=== PATIENT | female | born 1970 | race Caucasian/White ===

== ENCOUNTER 2016-12-11 16:55 | Emergency (ER) | payer MEDICARE, MEDICAID ==
[~2016-12-11] VITALS: Ht 170.2 cm; Wt 108.9 kg
[~2016-12-11 16:55] MED LIST: ACET325T21 PO; ASCO500T2 PO; ASPI-482 PO; ATOR40TA59 PO; AZTR1VIA2 IJ; BISA5TAB4 PO; CARV6.25 PO; CLOP75TA27 PO; DOCU100C5 PO; DOCU100T5 PO; DOXY100T PO; FENT1PAT15 TD; FENT1PAT17 TD; FENT50VI IV; GABA-586 PO; GUAI12003 PO; INSU100C4 SQ; INSU100I17 SQ; INSU100I27 SQ; INSU100V8 SQ; IPRA3AMP NEB; MAGN400O4 PO; METO2.5T PO; MONT10TA9 PO; NITR0.4T SL; OMEP20CA9 PO; ONDA4TAB10 SL; ONDA4TAB7 PO; POLY17PO3 PO; POLY17PO5 PO; POTA20TA4 PO; PROC25SU2 RC; SPIR25TA3 PO; TORS20TA2 PO; TRAM50TA PO
--- NOTE | 2016-12-11 20:21 | RAD ---
PROCEDURE Right lower extremity venous duplex study 12/11/2016 HISTORY Right thigh swelling and pain for 1 day. TECHNIQUE Using a combination of real-time ultrasound imaging and color flow and pulse Doppler imaging techniques along with graded compression augmentation, duplex evaluation of the major deep venous structures of the right lower extremity was performed. Multiple images were obtained. FINDINGS Echogenic thrombus consistent with occlusive DVT is seen extending throughout the right superficial femoral and right common femoral veins. The right popliteal vein is patent. IMPRESSION DVT is seen extending throughout the right superficial femoral and right common femoral veins. Electronically signed by: Mauro Maher MD (Dec 11, 2016 20:19:36)
[2016-12-11] MEDS ORDERED: FENTANYL PF 100 MCG/2 ML VIAL. IM ONE (20:30)
[2016-12-11] MEDS ORDERED: FENTANYL PF 100 MCG/2 ML VIAL. IV ONE (20:45)
[2016-12-11] MEDS ORDERED: APIXABAN 5 MG TABLET. PO ONE (20:45)
[2016-12-11] MEDS ORDERED: FENT1PAT17 TD (21:28)
[2016-12-11] MEDS ORDERED: APIX5TAB PO (21:28)
--- NOTE | 2016-12-11 21:29 | PHYS DOC ---
Past Medical History Past Medical History: CVA, Diabetes-Type II, DVT, GERD, High Cholesterol, Hypertension, [place], Renal Disease, Other Additional Past Medical Histor: PE, CHRONIC BACK PAIN, ENLARGED LIVER Past Surgical History: Angioplasty, Cholecystectomy, , Other Additional Past Surgical Histo: CARDIAC STENT, VENA CAVA FILTER, HERNIA SURG Alcohol Use: None Drug Use: None Adult General Chief Complaint Chief Complaint: INSECT BITE HPI HPI Patient is a 46 year old female who presents with report of a "spider bite" to the right thigh that she noticed today. She reports that the right thigh is swollen compared to the left because of the bite. She denies any fevers. The patient had 2 toes amputated from the right foot in July of last year. She has been instructed to be non-weight bearing until later this month. She has been using a 2-wheeled knee scooter for assistance with ambulation. She has a history of DVT and PE with [place] filter placed after the 2nd PE. She is not currently on any blood thinners. Her PCP is Dr. Chele Singh. Review of Systems Review of Systems Constitutional: Denies fever or chills. [] Respiratory: Denies cough or shortness of breath. [] Cardiovascular: Denies chest pain, palpitations or edema. [] Musculoskeletal: Denies back pain or joint pain. Reports right leg pain. Integument: Denies rash or skin lesions. Reports right thigh "spider bite" Neurologic: Denies focal weakness or sensory changes. [] Current Medications Current Medications Current Medications Medications (Trade) Dose Ordered Sig/Ant Start Time Stop Time Status Last Admin Dose Admin Apixaban (Eliquis) 10 mg 1X ONCE 12/11/16 20:45 12/11/16 21:01 DC Fentanyl Citrate (Fentanyl 2ml Vial) 50 mcg 1X ONCE 12/11/16 20:45 12/11/16 21:00 DC 12/11/16 20:47 50 MCG Allergies Allergies Allergies Coded Allergies Type Severity Reaction Last Updated Verified Sulfa (Sulfonamide Antibiotics) Allergy Severe causes throat to swell 07/15/16 Yes amoxicillin Allergy Severe causes swelling of throat 07/15/16 Yes clarithromycin Allergy Severe causes throat to swell 07/15/16 Yes codeine Allergy Severe "closed up my throat and itching" 07/15/16 Yes hydrocodone Allergy Severe "closes up my throat and itching" 03/28/15 Yes Penicillins Allergy Intermediate causes swelling of throat 03/28/15 Yes oxycodone Allergy Intermediate 06/08/16 Yes tramadol Allergy Intermediate Nausea and Vomiting 07/01/16 Yes Physical Exam Physical Exam Constitutional: Well developed, well nourished, no acute distress, non-toxic appearance. [] HENT: Normocephalic, atraumatic, oropharynx moist. [] Eyes: PERRLA, EOMI, conjunctiva normal, no discharge. [] Neck: Normal range of motion, no tenderness, supple, no stridor. [] Cardiovascular: Heart rate regular rhythm, no murmur. [] Lungs & Thorax: Bilateral breath sounds clear to auscultation without wheezes, rales, or rhonchi. [] Skin: Warm, dry, no erythema, no rash. There is no erythema or induration. There is no abscess. There are no skin changes in the right thigh. Extremities: Right thigh tenderness, ROM intact, mild right thigh edema. Distal pulses equal bilaterally. Less than 2 second capillary refill in the toes distally. Light touch sensation intact in the toes. Neurologic: Alert and oriented X 3, normal motor function, normal sensory function, no focal deficits noted. [] Psychologic: Affect normal, judgement normal, mood normal. [] Current Patient Data Vital Signs Vital Signs Date Time Temp Pulse Resp B/P Pulse Ox O2 Delivery O2 Flow Rate FiO2 12/11/16 20:47 91 Room Air 12/11/16 20:45 103 20 145/77 12/11/16 18:47 98.5 98.5 EKG EKG [] Radiology/Procedures Radiology/Procedures REASON: right thigh swelling, non-wt bearing since 07/2016 toe amputation PROCEDURE: VENOUS LOWER EXTREMITY RIGHT PROCEDURE Right lower extremity venous duplex study 12/11/2016 HISTORY Right thigh swelling and pain for 1 day. TECHNIQUE Using a combination of real-time ultrasound imaging and color flow and pulse Doppler imaging techniques along with graded compression augmentation, duplex evaluation of the major deep venous structures of the right lower extremity was performed. Multiple images were obtained. FINDINGS Echogenic thrombus consistent with occlusive DVT is seen extending throughout the right superficial femoral and right common femoral veins. The right popliteal vein is patent. IMPRESSION DVT is seen extending throughout the right superficial femoral and right common femoral veins. Course & Med Decision Making Course & Med Decision Making Pertinent Labs and Imaging studies reviewed. (See chart for details) The patient presents with report of a spider bite to her right thigh that has caused swelling in the thigh. On exam, there are no skin changes that would explain the swelling in her thigh. There is no evidence of abscess or cellulitis. The patient has been nonweightbearing on the right leg since surgery in July of last year. She has a history of DVTs and is not currently on any blood thinners. Ultrasound does show blood clot in the right superficial femoral and common femoral veins. She denies chest pain or shortness of breath. She has a [place] filter in place. Patient was given an initial dose of Eliquis in the emergency department. She is on fentanyl patch for chronic pain management. She states that she applied her last patch yesterday. She has a follow-up appointment with her doctor on Wednesday. She is discharged home with prescription for Eliquis and 1 fentanyl patch. Return precautions were discussed. She verbalizes understanding and agrees with plan. Patient course was discussed with Dr. Gasca, who agrees with evaluation and plan. Dragon Disclaimer Dragon Disclaimer This electronic medical record was generated, in whole or in part, using a voice recognition dictation system. Departure Departure Impression: Primary Impression: DVT (deep venous thrombosis) Disposition: HOME, SELF-CARE Condition: STABLE Referrals: CHELE SINGH MD (PCP) Patient Instructions: Deep Vein Thrombosis Additional Instructions: You were seen for a blood clot in your right thigh. You have been started on a blood thinner to help dissolve the blood clot. You do not need to have blood tests for this medication. It is still very important to take it regularly. Please follow up with your doctor as scheduled on Wednesday. Return to the emergency department if you have chest pain, shortness of breath, or other new or concerning symptoms. Scripts Fentanyl (FENTANYL 50mcg/hr)1 Each Patch.[id number] Patch TD Q72H #1 PATCH Prov:NICHOLAS LUJAN 12/11/16 Apixaban (Eliquis)5 Mg [id number] Mg PO BID #74 Take 10mg twice daily for 7 days, then take 5mg twice daily. Prov:INCHOLAS LUJAN 12/11/16 Problem Qualifiers Primary Impression: DVT (deep venous thrombosis) DVT location: lower extremity Affected thrombotic vein of extremity: femoral Laterality: right Chronicity: acute Qualified Code: I82.411 - Acute embolism and thrombosis of right femoral vein NICHOLAS LUJAN Dec 11, 2016 21:29
[2016-12-11 21:30] VITALS: BP 145/77
== END 2016-12-11 21:40 | disposition home or self-care (01) ==
LOC: ER 16:55
DX: I82.411 Acute embolism and thrombosis of right femoral vein (principal); K21.9 Gastro-esophageal reflux disease without esophagitis; E78.00 Pure hypercholesterolemia, unspecified; I25.2 Old myocardial infarction; G89.29 Other chronic pain; I10 Essential (primary) hypertension; Z86.718 Personal history of other venous thrombosis and embolism; Z86.711 Personal history of pulmonary embolism; Z86.73 Personal history of transient ischemic attack (TIA), and cerebral infarction without residual deficits; Z89.421 Acquired absence of other right toe(s); Z90.49 Acquired absence of other specified parts of digestive tract; Z95.5 Presence of coronary angioplasty implant and graft; Z88.2 Allergy status to sulfonamides; Z88.1 Allergy status to other antibiotic agents; Z88.5 Allergy status to narcotic agent; Z88.0 Allergy status to penicillin
CPT/HCPCS: 93971; 96374; 99284; J3010

== ENCOUNTER 2016-12-14 17:42 | Emergency (ER) | payer MEDICARE, MEDICAID ==
[~2016-12-14] VITALS: Ht 170.2 cm; Wt 108.9 kg
[~2016-12-14 17:42] MED LIST changes: +APIX5TAB PO
--- NOTE | 2016-12-14 18:56 | PHYS DOC ---
Past Medical History Past Medical History: CVA, Diabetes-Type II, DVT, GERD, High Cholesterol, Hypertension, [place], Renal Disease, Other Additional Past Medical Histor: PE, CHRONIC BACK PAIN, ENLARGED LIVER Past Surgical History: Angioplasty, Cholecystectomy, , Other Additional Past Surgical Histo: CARDIAC STENT, VENA CAVA FILTER, HERNIA SURG, 4TH & 5TH RIGHT TOE AMP Additional Information: 2 CIGS/DAY Alcohol Use: None Drug Use: None Adult General Chief Complaint Chief Complaint: LOWER EXTREMITY SWELLING HPI HPI Patient is a 46 year old female who presents with right thigh pain and swelling. Patient was recently diagnosed with DVT on 12/11/16, and was started on Eliquis. She presents today with complaint of continued swelling and pain in the right thigh. She is concerned about the possibility of bleeding from the blood thinner that she was started on. She has tried taking Tylenol for the pain and has a fentanyl patch as well. No other acute complaints. Review of Systems Review of Systems Constitutional: Denies fever or chills Eyes: Denies change in visual acuity or eye pain HENT: Scratchy voice. Denies nasal congestion or sore throat Respiratory: Denies cough or shortness of breath Cardiovascular: Denies chest pain GI: Denies abdominal pain, nausea, vomiting, bloody stools or diarrhea : Denies dysuria or hematuria Musculoskeletal: RLE pain and swelling Integument: Denies rash or skin lesions Neurologic: Denies headache, focal weakness or sensory changes Current Medications Current Medications Current Medications Medications (Trade) Dose Ordered Sig/Ant Start Time Stop Time Status Last Admin Dose Admin Fentanyl Citrate (Fentanyl 2ml Vial) 50 mcg 1X ONCE 12/14/16 21:30 12/14/16 21:31 DC 12/14/16 21:32 50 MCG Allergies Allergies Allergies Coded Allergies Type Severity Reaction Last Updated Verified Sulfa (Sulfonamide Antibiotics) Allergy Severe causes throat to swell 07/15/16 Yes amoxicillin Allergy Severe causes swelling of throat 07/15/16 Yes clarithromycin Allergy Severe causes throat to swell 07/15/16 Yes codeine Allergy Severe "closed up my throat and itching" 07/15/16 Yes hydrocodone Allergy Severe "closes up my throat and itching" 03/28/15 Yes Penicillins Allergy Intermediate causes swelling of throat 03/28/15 Yes oxycodone Allergy Intermediate 06/08/16 Yes tramadol Allergy Intermediate Nausea and Vomiting 07/01/16 Yes Physical Exam Physical Exam Constitutional: Well developed, well nourished, no acute distress, non-toxic appearance HENT: Normocephalic, atraumatic, bilateral external ears normal Eyes: EOMI, conjunctiva normal, no discharge Neck: Normal range of motion, no stridor Cardiovascular: Heart rate normal, regular rhythm, no murmur Lungs & Thorax: Bilateral breath sounds clear to auscultation Abdomen: Bowel sounds normal, soft, non-distended, no TTP Skin: Warm, dry, no erythema, no rash Extremities: RLE mildly swollen compared to LLE; R thigh generally TTP; motor function and sensation to light touch intact; 1+ DP pulse; prior toe amputation noted Neurologic: Alert and oriented X 3, no gross deficits noted Current Patient Data Vital Signs Vital Signs Date Time Temp Pulse Resp B/P Pulse Ox O2 Delivery O2 Flow Rate FiO2 12/14/16 21:50 92 20 114/65 97 Room Air 12/14/16 18:21 98.4 98.4 EKG EKG [] Radiology/Procedures Radiology/Procedures CT RLE: FINDINGS: There is diffuse soft tissue stranding throughout the right calf and foot, with prominent edema present lateral to the distal fibula. No focal fluid collection is seen to suggest hematoma or abscess. No subcutaneous emphysema is seen. The knee and ankle joints are maintained. No acute fracture or dislocation is seen within the visualized osseous structures. IMPRESSION: Diffuse subcutaneous soft tissue stranding suggesting edema within the right lower leg, without a focal fluid collection seen. Course & Med Decision Making Course & Med Decision Making Pertinent Labs and Imaging studies reviewed. (See chart for details) Patient is 46-year-old female who presents with right lower extremity pain and swelling. Suspect this is related to the DVT that was recently diagnosed. Will obtain CT scan of the affected leg to rule out evidence of hematoma, although I believe the likelihood that she is bleeding and her leg is low. IM pain meds ordered for pain relief. Imaging results as above. Provided reassurance the patient, who says she has been taking her Eliquis as prescribed. Will discharge with instructions for follow-up and return precautions. Dragon Disclaimer Dragon Disclaimer This electronic medical record was generated, in whole or in part, using a voice recognition dictation system. Departure Departure Impression: Primary Impression: DVT (deep venous thrombosis) Additional Impression: Leg edema, right Disposition: HOME, SELF-CARE Condition: STABLE Referrals: CHELE SINGH MD (PCP) Patient Instructions: Deep Vein Thrombosis Additional Instructions: Thank you for allowing us to provide care today in the Emergency Department. Continue to use your fentanyl patch for pain control. Schedule a follow up appointment with your primary care doctor. Return promptly to the Emergency Department if you develop any new or concerning symptoms. Problem Qualifiers INNA TARIQ MD Dec 14, 2016 18:56
[2016-12-14] MEDS ORDERED: FENTANYL PF 100 MCG/2 ML VIAL. IM ONE ×2 (19:00→21:30)
--- NOTE | 2016-12-14 20:29 | RAD ---
INDICATION: Right thigh swelling after starting anticoagulant, evaluate for fluid collection. COMPARISON: None TECHNIQUE: Axial CT images obtained through the right lower extremity from the level of the knee inferiorly through the toes, without intravenous contrast. Coronal and sagittal reformats are provided. One or more of the following individualized dose reduction techniques were utilized for this examination: 1. Automated exposure control; 2. Adjustment of the mA and/or kV according to patient size; 3. Use of iterative reconstruction technique. FINDINGS: There is diffuse soft tissue stranding throughout the right calf and foot, with prominent edema present lateral to the distal fibula. No focal fluid collection is seen to suggest hematoma or abscess. No subcutaneous emphysema is seen. The knee and ankle joints are maintained. No acute fracture or dislocation is seen within the visualized osseous structures. IMPRESSION: Diffuse subcutaneous soft tissue stranding suggesting edema within the right lower leg, without a focal fluid collection seen. Electronically signed by: Ida Tubbs (Dec 14, 2016 20:27:39)
[2016-12-14 21:50] VITALS: BP 114/65
== END 2016-12-14 21:53 | disposition home or self-care (01) ==
LOC: ER 17:42
DX: I82.4Y1 Acute embolism and thrombosis of unspecified deep veins of right proximal lower extremity (principal); I12.9 Hypertensive chronic kidney disease with stage 1 through stage 4 chronic kidney disease, or unspecified chronic kidney disease; N18.9 Chronic kidney disease, unspecified; I25.2 Old myocardial infarction; K21.9 Gastro-esophageal reflux disease without esophagitis; E78.00 Pure hypercholesterolemia, unspecified; E11.9 Type 2 diabetes mellitus without complications; Z86.73 Personal history of transient ischemic attack (TIA), and cerebral infarction without residual deficits; G89.29 Other chronic pain; Z86.711 Personal history of pulmonary embolism; Z95.5 Presence of coronary angioplasty implant and graft; Z95.1 Presence of aortocoronary bypass graft; Z90.49 Acquired absence of other specified parts of digestive tract; F17.210 Nicotine dependence, cigarettes, uncomplicated; Z98.890 Other specified postprocedural states; Z88.2 Allergy status to sulfonamides; Z88.1 Allergy status to other antibiotic agents; Z88.5 Allergy status to narcotic agent; Z88.6 Allergy status to analgesic agent; Z88.0 Allergy status to penicillin
CPT/HCPCS: 73700; 96372; 99284; J3010

== ENCOUNTER 2016-12-21 13:19 | Inpatient (IN) | payer MEDICARE, MEDICAID ==
[~2016-12-21] VITALS: Ht 170.2 cm; Wt 128.9 kg
[2016-12-21 14:11] LABS: BASO # 0.1 x10^3/uL (0.0-0.2); BASO % 1 % (0-3); EOS % 1 % (0-3); HEMATOCRIT 41.9 % (36.0-47.0); HEMOGLOBIN 13.5 g/dL (12.0-15.5); LYMPH # 1.5 x10^3/uL (1.0-4.8); LYMPH % 17 % (24-48); MEAN CORPUSCULAR HEMOGLOBIN 28 pg (25-35); MEAN CORPUSCULAR HGB CONC 32 g/dL (31-37); MEAN CORPUSCULAR VOLUME 88 fL (79-100); MONO % 7 % (0-9); NEUT % 75 % (31-73); PLATELET COUNT 265 x10^3/uL (140-400); RED BLOOD COUNT 4.76 x10^6/uL (3.50-5.40); RED CELL DISTRIBUTION WIDTH 18.7 % (11.5-14.5); WHITE BLOOD COUNT 8.8 x10^3/uL (4.0-11.0)
[2016-12-21] MEDS ORDERED: VANCOMYCIN PER PHARMACY MC PRN (14:15)
[2016-12-21] MEDS ORDERED: ONDANSETRON PF 4 MG/2 ML VIAL. IV ONE (14:15)
[2016-12-21] MEDS ORDERED: LEVOFLOXACIN PER PHARMACY MC PRN (14:15)
--- NOTE | 2016-12-21 14:18 | ED.ADGEN ---
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 Patient has wound care at home, but over the past 3 days or so as noted increased swelling, now odor and drainage along with worsening pain from her right foot. Complains of subjective fevers and chills at home, nausea, generalized weakness and malaise. Patient noted to be tachycardic heart rate in the 1 teens, blood pressure 1 teens over 70s, upon arrival to the emergency department, afebrile. States that she was using her home fennel patches without relief. 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 Tetanus is up-to-date. Review of Systems Review of Systems Constitutional: Denies fever or chills. [] Eyes: Denies change in visual acuity. [] HENT: Denies nasal congestion or sore throat. [] Respiratory: Denies cough or shortness of breath. [] Cardiovascular: Denies chest pain or edema. [] GI: Denies abdominal pain, nausea, vomiting, bloody stools or diarrhea. [] : Denies dysuria. [] Musculoskeletal: Denies back pain, pain in the right foot, with swelling. Integument: Denies rash. [] Neurologic: Denies headache, focal weakness or sensory changes. [] Endocrine: Denies polyuria or polydipsia. [] Lymphatic: Denies swollen glands. [] Psychiatric: Denies depression or anxiety. [] Current Medications Current Medications Current Medications Medications (Trade) Dose Ordered Sig/Ant Start Time Stop Time Status Last Admin Dose Admin Acetaminophen (Tylenol) 650 mg PRN Q4HRS PRN 12/21/16 16:15 12/22/16 16:14 Albuterol/ Ipratropium (Duoneb) 3 ml RTQID 12/21/16 20:00 12/22/16 19:59 Dextrose 12.5 gm PRN Q15MIN PRN 12/21/16 16:15 Fentanyl Citrate (Fentanyl 2ml Vial) 50 mcg PRN Q1HR PRN 12/21/16 16:15 12/22/16 16:14 Insulin Aspart (Novolog) 0-5 UNITS TIDWMEALS 12/21/16 17:00 UNV Levofloxacin/ Dextrose 150 ml @ 100 mls/hr 1X ONCE 12/21/16 15:00 12/21/16 16:29 DC 12/21/16 14:30 100 MLS/HR Levofloxacin/ Dextrose 1 each 1 each PRN DAILY PRN 12/21/16 14:15 UNV Metronidazole (FLAGYL 500Mmg PREMIX) 100 ml @ 100 mls/hr 1X ONCE 12/21/16 16:00 12/21/16 16:59 12/21/16 16:15 100 MLS/HR Morphine Sulfate 4 mg PRN Q15MIN PRN 12/21/16 14:15 12/22/16 14:14 12/21/16 15:22 4 MG Ondansetron HCl (Zofran) 4 mg PRN Q8HRS PRN 12/21/16 16:15 12/22/16 16:14 Sodium Chloride 3,960 ml @ 3,960 mls/hr Q1H 12/21/16 14:07 12/21/16 14:30 3,960 MLS/HR Vancomycin HCl (Vanco Per Pharmacy) 1 each PRN DAILY PRN 12/21/16 14:15 UNV Vancomycin HCl 2 gm/Sodium Chloride 500 ml @ 250 mls/hr 1X ONCE 12/21/16 15:00 12/21/16 16:59 12/21/16 15:00 250 MLS/HR Allergies Allergies Allergies Coded Allergies Type Severity Reaction Last Updated Verified Sulfa (Sulfonamide Antibiotics) Allergy Severe causes throat to swell 07/15/16 Yes amoxicillin Allergy Severe causes swelling of throat 07/15/16 Yes clarithromycin Allergy Severe causes throat to swell 07/15/16 Yes codeine Allergy Severe "closed up my throat and itching" 07/15/16 Yes hydrocodone Allergy Severe "closes up my throat and itching" 03/28/15 Yes Penicillins Allergy Intermediate causes swelling of throat 03/28/15 Yes oxycodone Allergy Intermediate 06/08/16 Yes tramadol Allergy Intermediate Nausea and Vomiting 07/01/16 Yes Physical Exam Physical Exam Constitutional: Well developed, well nourished, no acute distress, non-toxic appearance. [] HENT: Normocephalic, atraumatic, bilateral external ears normal, oropharynx moist, no oral exudates, nose normal. [] Eyes: PERRLA, EOMI, conjunctiva normal, no discharge. [] Neck: Normal range of motion, no tenderness, supple, no stridor. [] Cardiovascular:Heart rate tachycardic, regular rhythm, no murmur, S1, S2, rubs or gallops. [] Lungs & Thorax: Diminished breath sounds at bases bilaterally, no rhonchi or rales appreciated. No chest tenderness or crepitus. Abdomen: Obese, Bowel sounds normal, soft, no tenderness, no masses, no pulsatile masses. [] Skin: Warm, dry, no erythema, no rash. [] Back: No tenderness, no CVA tenderness. [] Extremities: Patient with swelling bilateral lower extremities, with significant edema noted in the right lower, with redness and erythema, streaking away from an area of open wounds over the fourth and fifth toes, on the dorsal aspect, foul odor is noted, with a small amount of yellow drainage. Neurologic: Alert and oriented X 3, normal motor function, normal sensory function, no focal deficits noted. [] Psychologic: Affect normal, judgement normal, mood normal. [] Current Patient Data Vital Signs Vital Signs Date Time Temp Pulse Resp B/P Pulse Ox O2 Delivery O2 Flow Rate FiO2 12/21/16 16:12 16 96 Room Air 12/21/16 15:22 2.0 12/21/16 15:21 107 109/64 12/21/16 13:19 97.4 97.4 Lab Values Laboratory Tests Test 12/21/16 13:53 12/21/16 15:10 White Blood Count 8.8x10^3/uL (4.0-11.0) Red Blood Count 4.76x10^6/uL (3.50-5.40) Hemoglobin 13.5g/dL (12.0-15.5) Hematocrit 41.9% (36.0-47.0) Mean Corpuscular Volume 88fL (79-100) Mean Corpuscular Hemoglobin 28pg (25-35) Mean Corpuscular Hemoglobin Concent 32g/dL (31-37) Red Cell Distribution Width 18.7% (11.5-14.5) H Platelet Count 265x10^3/uL (140-400) Neutrophils (%) (Auto) 75% (31-73) H Lymphocytes (%) (Auto) 17% (24-48) L Monocytes (%) (Auto) 7% (0-9) Eosinophils (%) (Auto) 1% (0-3) Basophils (%) (Auto) 1% (0-3) Neutrophils # (Auto) 6.6x10^3uL (1.8-7.7) Lymphocytes # (Auto) 1.5x10^3/uL (1.0-4.8) Monocytes # (Auto) 0.6x10^3/uL (0.0-1.1) Eosinophils # (Auto) 0.1x10^3/uL (0.0-0.7) Basophils # (Auto) 0.1x10^3/uL (0.0-0.2) Prothrombin Time 15.0SEC (11.7-14.0) H Prothrombin Time INR 1.3 (0.8-1.1) H PTT 30SEC (24-38) Sodium Level 141mmol/L (136-145) Potassium Level 4.4mmol/L (3.5-5.1) Chloride Level 99mmol/L (98-107) Carbon Dioxide Level 32mmol/L (21-32) Anion Gap 10 (6-14) Blood Urea Nitrogen 40mg/dL (7-20) H Creatinine 2.4mg/dL (0.6-1.0) H Estimated GFR (Cockcroft-Gault) 21.6 BUN/Creatinine Ratio 17 (6-20) Glucose Level 375mg/dL (70-99) H Lactic Acid Level 4.4mmol/L (0.4-2.0) *H 4.2mmol/L (0.4-2.0) *H Calcium Level 9.2mg/dL (8.5-10.1) Total Bilirubin 0.6mg/dL (0.2-1.0) Aspartate Amino Transferase (AST) 23U/L (15-37) Alanine Aminotransferase (ALT) 18U/L (14-59) Alkaline Phosphatase 125U/L (46-116) H SZ-Azf-Z-Type Natriuretic Peptide 1337pg/mL (0-124) H Total Protein 6.6g/dL (6.4-8.2) Albumin 2.9g/dL (3.4-5.0) L Albumin/Globulin Ratio 0.8 (1.0-1.7) L Laboratory Tests 12/21/16 13:53 Laboratory Tests 12/21/16 13:53 EKG EKG EC: Sinus tachycardia, heart rate 115 beats minute, right ventricular pressure noted with left axis deviation, abnormal ECG, does not meet STEMI criteria, interpreted as accelerated reduction rhythm, however based on rate consistent with a sinus tachycardia. Abnormal ECG. As interpreted by me. Radiology/Procedures Radiology/Procedures [] [address] [id number] IMAGING REPORT Signed PATIENT: ADRIEL GOOD ACCOUNT: [id number] : 1970 LOCATION: ER AGE: 46 SEX: F EXAM STATUS: REG ER ORD. PHYSICIAN: NICHOLAS HARO DO REASON: Foot swelling/infection PROCEDURE: CHEST AP ONLY Portable chest, 12/21/2016: History: Shortness of breath, foot infection Comparison is made to a study from 11/13/2015. The right PICC has been removed. The heart is at the upper limits of normal in size. The pulmonary vascularity is normal. No pulmonary infiltrates are seen. There is no evidence of pleural fluid. IMPRESSION: No acute cardiopulmonary abnormality is detected. DICTATED and SIGNED BY: EHSAN WHITE MD DATE: 12/21/16 1420 CC: NICHOLAS HARO DO; CHELE JOHNSON MD ~ Impressions: [address] [id number] IMAGING REPORT Signed PATIENT: ADRIEL GOOD ACCOUNT: [id number] : 1970 LOCATION: ER AGE: 46 SEX: F EXAM STATUS: REG ER ORD. PHYSICIAN: NICHOLAS HARO DO REASON: Foot swelling/infection PROCEDURE: FOOT RIGHT 3V Right foot, 3 views, 12/21/2016: History: Open wound, previous amputation Comparison is made to a study from 06/05/2016. The fourth and fifth toes have been amputated at the mid metatarsal level. There is minimal smooth periosteal reaction along the shafts of the remaining proximal aspects of the fourth and fifth metatarsals. No destructive bony lesion is seen. There is extensive generalized subcutaneous edema about the foot. IMPRESSION: 1. Postsurgical change. 2. No acute bony abnormality is detected. DICTATED and SIGNED BY: EHSAN WHITE MD DATE: 12/21/16 1430 CC: NICHOLAS HARO DO; CHELE JOHNSON MD ~ Course & Med Decision Making Course & Med Decision Making Pertinent Labs and Imaging studies reviewed. (See chart for details) Patient's examination concerning for sepsis due to diabetic ulcer infecting the right foot. Patient initiated on IV fluids per protocol, with placement of 2 large-bore IVs, vancomycin, metronidazole and Levaquin. Patient received pain medication and antiemetics. Is agreeable for admission to the hospital. X-rays obtained of the chest and right foot, no evidence of acutely concerning findings in the chest, right foot shows no significant bony abnormalities, patient noted to have soft tissue swelling edema, but no fluid collections or tracking of gas. Consistent with the diabetic ulcer external examination. Patient patient's pain improved using morphine, phenyl, blood pressure remained mildly labile, upper 90s over 60s to 1 teens over 60s, heart rate in the 90s to low 100s. Patient hyperglycemia, glucose of 397. No evidence of anion gap in her laboratory studies. Patient states that she is feeling better at this time. Noted to be dehydrated with a blood urea nitrogen of 40, creatinine of 2.4, elevated from patient's baseline, with fluids infusing as stated. Repeat lactate was 4.2. Initial 4.4. Findings as above along with examination history discussed with Dr. Johnson, the patient's primary care provider. Patient accepted to his service as a full admission to the cardiac telemetry floor for close monitoring, consultation with orthopedics, infectious disease, and supportive care and antibiotic coverage as stated. Bridge orders entered per above. Dragon Disclaimer Dragon Disclaimer This electronic medical record was generated, in whole or in part, using a voice recognition dictation system. Departure Impression: Primary Impression: Sepsis Additional Impressions: DM (diabetes mellitus) Wound infection Disposition: ADMITTED INPATIENT Admitting Physician: Khadijah Carrero Condition: IMPROVED Problem Qualifiers NICHOLAS HARO DO Dec 21, 2016 14:18
[2016-12-21 14:26] LABS: CALCIUM 9.2 mg/dL (8.5-10.1); CREATININE 2.4 mg/dL (0.6-1.0); GFR 21.6; POTASSIUM 4.4 mmol/L (3.5-5.1)
[2016-12-21] MEDS: MORPHINE SULFATE 4 MG/ML DISP.SYRIN. IV/SQ PRN ×2 (14:29→15:22)
[2016-12-21] MEDS: NORMAL SALINE IV SCH ×10 (14:30→23:07)
[2016-12-21 14:31] LABS: INR 1.3 (0.8-1.1)
[2016-12-21 14:32] LABS: ALBUMIN 2.9 g/dL (3.4-5.0); ALBUMIN/GLOBULIN RATIO 0.8 (1.0-1.7); TOTAL BILIRUBIN 0.6 mg/dL (0.2-1.0); TOTAL PROTEIN 6.6 g/dL (6.4-8.2)
--- NOTE | 2016-12-21 14:32 | RAD ---
Portable chest, 12/21/2016: History: Shortness of breath, foot infection Comparison is made to a study from 11/13/2015. The right PICC has been removed. The heart is at the upper limits of normal in size. The pulmonary vascularity is normal. No pulmonary infiltrates are seen. There is no evidence of pleural fluid. IMPRESSION: No acute cardiopulmonary abnormality is detected.
--- NOTE | 2016-12-21 14:36 | RAD ---
Right foot, 3 views, 12/21/2016: History: Open wound, previous amputation Comparison is made to a study from 06/05/2016. The fourth and fifth toes have been amputated at the mid metatarsal level. There is minimal smooth periosteal reaction along the shafts of the remaining proximal aspects of the fourth and fifth metatarsals. No destructive bony lesion is seen. There is extensive generalized subcutaneous edema about the foot. IMPRESSION: 1. Postsurgical change. 2. No acute bony abnormality is detected.
[2016-12-21 14:50] VITALS: BP 118/69
[2016-12-21] MEDS ORDERED: VANCOMYCIN 2 GM in IV NORMAL SALINE 500ML BAG 500 ML IV ONE (15:00)
[2016-12-21] MEDS ORDERED: FENTANYL PF 100 MCG/2 ML VIAL. IV PRN ×3 (15:45→19:45)
[2016-12-21] MEDS ORDERED: METRONIDAZOLE 500mg PREMIX 100 ML IV ONE (16:00)
[2016-12-21] MEDS ORDERED: ONDANSETRON PF 4 MG/2 ML VIAL. IV PRN (16:15)
[2016-12-21] MEDS ORDERED: DEXTROSE 50% 25 GM / 50ML DISP.SYRIN. IV PRN (16:15)
[2016-12-21] MEDS ORDERED: ACETAMINOPHEN 325 MG TABLET. PO PRN (16:15)
[2016-12-21] MEDS: INSULIN ASPART 300 UNITS/3 ML INSULN.PEN SQ SCH (17:00)
--- NOTE | 2016-12-21 18:06 | ACF ---
Admission Forms Criteria SYSTEMIC OR INFECTIOUS CONDITION Clinical Indications for Admission to Inpatient Care (Place 'X' for any and all applicable criteria): Hospital admission is needed for appropriate care of the patient because of ANY ONE of the following: [X]I. Hemodynamic instability indicated by ANY ONE of the following(1)(2)(3)( 4)(5): []a. Vital sign abnormality not readily corrected by appropriate treatment within 12 to 24 hours indicated by ANY ONE of the following: []i) Tachycardia that persists despite appropriate treatment []ii) Hypotension that persists despite appropriate treatment []iii) Orthostatic vital sign changes that persist despite appropriate treatment [X]b. Vital sign abnormality that is severe indicated by ANY ONE of the following: [X]i. Inadequate perfusion indicated by ANY ONE of the following: [X]1) Lactic acidosis (greater than 2 mmol/L) []2) New abnormal capillary refill (greater than 3 seconds) []3) Reduced urine output []4) New altered mental status []5) Myocardial Ischemia []ii. Mean arterial pressure [A] less than 60 mm Hg []iii. Mean arterial pressure[A] less than 70 mm Hg after 30 minutes of appropriate treatment (eg, fluid resuscitation) []iv. Sustained heart rate greater than 120 beats per minute in adult []v. IV inotropic or vasopressor medication required to maintain adequate blood pressure or perfusion []II. Systemic or infectious condition causing severe symptoms or findings not responsive to emergency or observation care treatment (as appropriate) indicated by ANY ONE of the following: []a. Cardiac arrhythmias of immediate concern(1)(2)(3) []b. Severe endocrine disorder (eg, thyrotoxicosis, adrenal insufficiency)(4)(5) []c. Seizures (eg, new or recurrent)(6) []d. New-onset end organ failure or dysfunction as indicated by ANY ONE of the following: []i. Acute unexplained hypoxemia (eg, not from lung infection or chronic disease)(7)(8)(9) []ii. Acute renal failure as indicated by new onset of ANY ONE of the following(10)(11)(12)(13)(14): []1) 3-fold rise in serum creatinine from baseline []2) Serum creatinine greater than 4 mg/dL (354 micromoles/L) with acute rise greater than 0.5 mg/dL (44.2 micromoles/L) []3) Reduction of more than 75% in estimated glomerular filtration rate from baseline. []4) Estimated glomerular filtration rate less than 35 mL/min/1.73m2 ( 0.59 mL/sec/1.73m2) in child younger than 18 years. []5) Cessation of urine output indicated by ALL of the following: []A. Adequate volume status []B. Inadequate urine output as indicated by ANY ONE of the following: []a. Urine output less than 0.3 mL/kg/hr for 24 hours []b. Anuria (urine output less than 0.1 mL/kg/hr) for 12 hours []iii. Acute mental status changes(15) []iv. Acute hepatic failure (eg, plasma bilirubin greater than 4 mg/ dL (68 micromoles/L), new INR greater than 2.0)(16)(17) []e. Unmanageable nausea and vomiting(18) []f. New-onset or uncontrolled central diabetes insipidus(19)(20) []g. Clinically significant dehydration(18)(21) []h. Hypoglycemia(22) []i. Acidosis (pH less than 7.35) or alkalosis (pH greater than 7.45)( 22)(23) []j. Toxic drug level that indicates need for specific monitoring or treatment(24)(25) []k. Severe electrolyte abnormalities indicated by ALL of the following( 1)(2)(3): []i. Electrolytes and associated findings are not as expected for patient baseline or acceptable treatment effects. []ii. Severe abnormalities indicated by ANY ONE of the following: []1) Sodium less than 130 mEq/L (mmol/L) (new) []2) Sodium less than 135 mEq/L (mmol/L) with ANY ONE of the following: []A. Uncorrectable (to near normal or chronic baseline) after trial of outpatient and emergency treatment []B. Altered mental status []C. Seizures []D. Severe medical etiology requiring inpatient management (eg , heart failure, hypovolemia) []3) Sodium greater than 155 mEq/L (mmol/L) []4) Sodium greater than 150 mEq/L (mmol/L) with ANY ONE of the following: []A. Uncorrectable (to near normal or chronic baseline) with outpatient and emergency treatment []B. Altered mental status []C. Seizures []D. Severe medical etiology (eg, hypovolemia, diabetes insipidus) []5) Potassium less than 2.5 mEq/L (mmol/L) despite outpatient and emergency treatment []6) Potassium less than 3 mEq/L (mmol/L) with ANY ONE of the following : []A. Weakness []B. Cardiac abnormality (eg, arrhythmia, conduction disturbance ) []C. Cardiac ischemia []D. Ileus []E. Ongoing medical cause requiring inpatient management (eg, acute renal wasting or SIADH) []F. Other severe symptoms []7) Potassium greater than 6.5 mEq/L (mmol/L) []8) Potassium greater than 5 mEq/L (mmol/L) with ANY ONE of the following: []A. Uncorrectable (to near normal or chronic baseline) with outpatient and emergency treatment []B. Severe ECG findings[A] []C. Acute worsening of renal failure (creatinine greater than 2.5 mg/dL (221 micromoles/L) or significant elevation for age and size) []D. Severe weakness []E. Severe medical etiology (eg, hemolysis, infection, drug overdose) []9) Calcium less than 7 mg/dL (1.75 mmol/L) despite outpatient and emergency treatment(5) []10) Calcium less than 8 mg/dL (2 mmol/L) with significant symptoms or findings (eg, altered mental status, muscle spasms, seizures, breathing difficulty, cardiac abnormality (eg, arrhythmia or conduction disturbance))(5) []11) Calcium greater than 14 mg/dL (3.5 mmol/L)(5) []12) Calcium greater than 12 mg/dL (3 mmol/L) with ANY ONE of the following(5): []A. Uncorrectable (to near normal or chronic baseline) with outpatient and emergency treatment []B. Significant dehydration or hypovolemia as indicated by ALL of the following(3)(6)(7): []a. Not resolved with initial treatments []b. Clinically significant dehydration as indicated by ANY ONE of the following: [](1) Vomiting refractory to outpatient treatment (ie, precluding oral rehydration) [](2) Inability to drink [](3) Hypernatremia or other electrolyte abnormality unable to be corrected with outpatient and emergency treatment [](4) Failure to remain hydrated with outpatient therapy [](5) Reduced urine output [](6) Hypotension [](7) Serious cause for dehydration requiring acute hospitalization ( eg, bowel obstruction, increased intracranial pressure, infectious cause) [](8) Child with ANY ONE of the following(8): [](i) Severe abdominal tenderness [](ii) Adequate care not available at home [](iii) Severe dehydration (greater than 9% loss of body weight) []C. Significant symptoms or findings (eg, altered mental status , cardiac abnormality (eg, arrhythmia, conduction disturbance), malignant etiology requiring inpatient treatment) []13) Phosphorus less than 1 mg/dL (0.32 mmol/L) []14) Phosphorus less than 1.5 mg/dL (0.48 mmol/L) with ANY ONE of the following: []A. Patient unresponsive to outpatient and emergency treatment []B. Significant symptoms or findings (eg, weakness, altered mental status, breathing difficulty, seizures, rhabdomyolysis) []15) Phosphorus greater than 10 mg/dL (3.2 mmol/L) []16) Phosphorus greater than 4.5 mg/dL (1.45 mmol/L) (new) with ANY ONE of the following: []A. Severe medical etiology (eg, crush injury, acute renal failure) []B. Associated hypocalcemia with significant findings (eg, neurologic symptoms, altered mental status, muscle spasms, seizures, breathing difficulty, cardiac abnormality (eg, arrhythmia, conduction disturbance)) []16) Magnesium less than 1 mg/dL (0.41 mmol/L) []17) Magnesium less than 1.5 mg/dL (0.62 mmol/L) with ANY ONE of the following: []A. Patient unresponsive to outpatient and emergency treatment []B. Associated hypocalcemia with significant findings (eg, altered mental status, muscle spasms, seizures, breathing difficulty, cardiac abnormality (eg, arrhythmia, conduction disturbance)) []C. Associated hypokalemia (potassium less than 3 mEq/L (mmol/L )) with risk of arrhythmia []18) Magnesium greater than 4 mEq/L (2 mmol/L) []19) Magnesium greater than 2.5 mEq/L (1.25 mmol/L) with significant symptoms or findings (eg, weakness, altered mental status, cardiac abnormality (eg, arrhythmia, conduction disturbance), breathing difficulty, severe medical etiology (eg, renal failure, hypovolemia)) []20) Uric acid greater than 20 mg/dL (1190 micromoles/L)(9) []21) Uric acid greater than 8 mg/dL (476 micromoles/L) with significant symptoms or findings of tumor lysis syndrome (eg, creatinine greater than 1.5 times upper limit of normal, cardiac abnormality (eg , arrhythmia, conduction disturbance), seizure)(9) []III. High fever or other high-risk infection situation as indicated by ANY ONE of the following(26)(27)(28): []a. Outpatient and observation care antimicrobial treatment unavailable, not effective, or not appropriate []b. Documented bacteremia []c. Temperature greater than 104.9 degrees F (40.5 degrees C) (oral) []d. Temperature greater than 103.1 degrees F (39.5 degrees C) (oral) or less than 96.8 degrees F (36 degrees C) (rectal) that does not respond to emergency treatment and observation care []IV. High-risk febrile neutropenia[A] as indicated by ANY ONE of the following(29)(30)(31)(32): []a. Profound neutropenia[B] anticipated to extend for more than 7 days []b. Hemodynamic instability []c. Hypoxemia []d. Tachypnea []e. Altered mental status []f. New-onset abdominal pain []g. New-onset vomiting or diarrhea []h. Oral or gastrointestinal mucositis that interferes with swallowing or causes severe diarrhea []i. Focal infection (eg, cellulitis, pneumonia, central line or catheter infection, perirectal abscess) []j. Renal insufficiency (eg, GFR of less than 30 mL/min/1.73m2 (0.5 mL/sec /1.73m2)). []k. Severe liver dysfunction (transaminase levels greater than 5 times normal) []l. Platelet count less than 50,000/mm3 (50 x109/L)(33) []m. Leukemia or lymphoma induction therapy []n. Leukemia not in complete remission or with evidence of disease progression []o. Bone marrow transplant patient []p. Alemtuzumab being used for therapy []q. [employer] Supportive Care in Cancer (MASCC) Risk Index score of less than 21[C](33)(35). []V. Isolation required (eg, tuberculosis that requires isolation, Ebola infection)[D](36)(37)(38)(39)(40) []. Gangrene that requires treatment beyond emergency or observation level care(41)(42) []VII. Antitoxin administration and ongoing observation required (eg, tetanus, botulism)(43)(44) []. Suspected infection with rapid progression or severe symptoms as indicated by ANY ONE of the following(45): []a. Streptococcal or staphylococcal toxic shock(46) []b. Diphtheria(47) []c. Hantavirus(48) []d. Severe acute respiratory syndrome(8)(49) []e. Anthrax(50) []f. Ebola[D](36)(37)(38) []g. Necrotizing soft tissue infection(41)(42) []h. Plague(50) []i. Other suspected infection that requires care beyond emergency or observation level care []VII. Severe adverse drug or systemic toxin reaction as indicated by ANY ONE of the following(24): []a. Serotonin syndrome(51)(52) []b. Neuroleptic malignant syndrome(51)(52) []c. Cholinergic syndrome with severe symptoms (eg, bronchorrhea, weakness , mental status changes, seizures)(53) []d. Anticholinergic syndrome []e. Sympathetic syndrome with severe symptoms (eg, seizures, mental status changes, cardiac dysrhythmias) []f. Other severe adverse drug or systemic toxin reaction that remains after emergency or observation level care (as appropriate) []VIII. Allergic reaction with severe symptoms (not responsive to emergency or observation care treatment as appropriate), including ANY ONE of the following(54): []a. Airway edema (pharyngeal, epiglottic, or laryngeal edema) []b. Stridor []c. Respiratory failure []d. Bronchospasm []e. Hypotension []IX. Environmental emergency (not responsive to emergency or observation care treatment as appropriate) as indicated by ANY ONE of the following(55)(56): []a. Hyperthermia []b. Heat stroke []c. Heat exhaustion []d. Hypothermia (temperature less than 95 degrees F (35 degrees C) rectal) (57) []e. Electrocution(58) []X. Complications of transplanted organ (ie, not covered elsewhere)[E] indicated by ANY ONE of the following(59): []a. Acute graft rejection (or graft vs. host disease)[F] requiring inpatient management (eg, intravenous immunosuppression)(60)(61)(62)( 63) []b. Acute failure of transplanted organ necessitating inpatient care (eg, cannot be managed in other setting) []c. Infection requiring inpatient management (eg, Hemodynamic instability, need for intravenous antimicrobial treatment)(64)(65) []d. Other complication of transplanted organ requiring inpatient management []XI. Systemic or Infectious Condition condition, symptom, or finding for which emergency and observation care have failed or are not considered appropriate. See General Criteria: Observation Care, General Admission Criteria or Pediatric General Admission Criteria guideline as appropriate. The [facility] content created by [facility] has been revised. The portions of the content which have been revised are identified through the use of italic text or in bold and [facility] has neither reviewed nor approved the modified material. All other unmodified content is copyright [facility]. Please see references footnoted in the original [facility] edition 2016 Admission Criteria Met?: Yes TRISTEN JOSE Dec 21, 2016 18:06
[2016-12-21 19:15] VITALS: BP 101/53
[2016-12-21] MEDS: FENTANYL PF 100 MCG/2 ML VIAL. IV PRN ×2 (20:32→23:40)
[2016-12-21] MEDS ORDERED: INSULIN ASPART 300 UNITS/3 ML INSULN.PEN SQ SCH (22:30)
[2016-12-21] MEDS ORDERED: MAGNESIUM HYDROXIDE 2,400 MG/30 ML ORAL.SUSP. PO PRN (22:30)
[2016-12-21] MEDS ORDERED: APIXABAN 5 MG TABLET. PO SCH (22:45)
[2016-12-21 23:00] VITALS: BP 117/69
[2016-12-21] MEDS ORDERED: METOLAZONE 2.5 MG TABLET PO PRN (23:00)
[2016-12-21] MEDS ORDERED: FAMOTIDINE 20 MG TABLET. PO SCH (23:30)
[2016-12-21] MEDS: ATORVASTATIN CALCIUM 40 MG TABLET. PO SCH (23:38)
[2016-12-21] MEDS: MONTELUKAST SODIUM 10 MG TABLET. PO SCH (23:38)
[2016-12-21] MEDS: METRONIDAZOLE 500mg PREMIX 100 ML IV SCH (23:50)
[2016-12-21] MEDS: INSULIN DETEMIR 300 UNITS/3 ML INSULN.PEN. SQ SCH (23:54)
[2016-12-22] MEDS: NORMAL SALINE IV SCH ×6 (00:07→05:07)
[2016-12-22] MEDS: CARVEDILOL 6.25 MG TABLET PO SCH ×3 (00:12→17:43)
[2016-12-22 03:00] VITALS: BP 114/70
[2016-12-22] MEDS: FENTANYL PF 100 MCG/2 ML VIAL. IV PRN ×7 (03:42→13:20)
[2016-12-22 04:41] LABS: BASO # 0.1 x10^3/uL (0.0-0.2); BASO % 1 % (0-3); EOS % 2 % (0-3); HEMATOCRIT 39.2 % (36.0-47.0); HEMOGLOBIN 12.6 g/dL (12.0-15.5); LYMPH # 1.7 x10^3/uL (1.0-4.8); LYMPH % 18 % (24-48); MEAN CORPUSCULAR HEMOGLOBIN 28 pg (25-35); MEAN CORPUSCULAR HGB CONC 32 g/dL (31-37); MEAN CORPUSCULAR VOLUME 88 fL (79-100); MONO % 7 % (0-9); NEUT % 72 % (31-73); PLATELET COUNT 240 x10^3/uL (140-400); RED BLOOD COUNT 4.47 x10^6/uL (3.50-5.40); RED CELL DISTRIBUTION WIDTH 18.2 % (11.5-14.5)
[2016-12-22 05:11] LABS: CALCIUM 8.9 mg/dL (8.5-10.1); CREATININE 2.3 mg/dL (0.6-1.0); GFR 22.7; POTASSIUM 3.3 mmol/L (3.5-5.1)
[2016-12-22] MEDS: METRONIDAZOLE 500mg PREMIX 100 ML IV SCH (06:12)
[2016-12-22 07:00] VITALS: BP 93/52
[2016-12-22] MEDS: IPRATRPIUM/ALBUTEROL 0.5/2.5MG 3 ML NEBU. NEB SCH ×4 (07:36→22:22)
[2016-12-22] MEDS: INSULIN ASPART 300 UNITS/3 ML INSULN.PEN SQ SCH ×6 (08:00→17:51)
--- NOTE | 2016-12-22 08:00 | PDOC1 ---
YVONNE LAYNE FRUIT GRADER 12/22/16 0800: HISTORY AND PHYSICAL Chief Complaint Chief Complaint This 46 year old male has been admitted with a chief complaint of R foot pain and swelling. She reports onset one week ago of wound R foot and has worsened. She reports subjective fever and chills. She had been seen in the [facility] ED 12/11/16 with suspected spider bite and R leg swelling. A DVT was diagnosed involving the R superficial femoral and R common femoral veins. She was started on Eliquis 5mg bid and has IVC filter in place. She was again seen in the ED on 12/14/16 with concern of bleeding from the anticoagulant and work up was negative. She presented to the ED yesterday with R foot swelling and pain. The foot dorsal near toes has a large reddened area with a yellow central area noted along with severe swelling. She was afebrile and WBC normal. She was given IV levaquin, IV vancomycin, and IV flagyl in the ED. She has been admitted for further evaluation and treatment for suspected abscess with cellulitis and sepsis. In addition her BUN was 29 and Cr 2.3. She has been taking additional zarolxyn 2.5mg bid since Wednesday for swelling. Problem List Problems Medical Problems: (1) DM (diabetes mellitus) Status: Acute (2) Sepsis Status: Acute (3) Wound infection Status: Acute Past Medical History Cardiovascular: CAD, CHF (systolic EF 30-30% mild MR tr TR ), HTN, RI, Hyperlipidemia, Other (recurring DVT RLE with h/o DVT/PE; PVD) Pulmonary: COPD, Other (JENNA with chronic O2 3L NC at hs. ) CENTRAL NERVOUS SYSTEM: CVA GI: GERD Heme/Onc: Other Hepatobiliary: Other (h/o GUY) Psych: Anxiety, Depression Musculoskeletal: Other Infectious disease: Other Renal/: Chronic renal insuff (CKD III ), Other Endocrine: Diabetes (Type II neuropathy with chronic insulin ) Past Surgical History Past Surgical History: Cholecystectomy, , Hernia Repair, Other (PCI/ stent coronary; IVC filter ) Past Family History Family History: Coronary Artery Disease, Diabetes, Hypertension Past Social History PSH Lives with brother. remote h/o smoking; no ETOH or illicit drug use. Review of Symptoms Review of Symptoms A 14 point ROS was completed with the following noted as positive: per HPI Other systems reviewed and negative. Medications Medications reviewed and reconciled. Allergy Allergies Coded Allergies Type Severity Reaction Last Updated Verified Sulfa (Sulfonamide Antibiotics) Allergy Severe causes throat to swell 07/15/16 Yes amoxicillin Allergy Severe causes swelling of throat 07/15/16 Yes clarithromycin Allergy Severe causes throat to swell 07/15/16 Yes codeine Allergy Severe "closed up my throat and itching" 07/15/16 Yes hydrocodone Allergy Severe "closes up my throat and itching" 03/28/15 Yes Penicillins Allergy Intermediate causes swelling of throat 03/28/15 Yes oxycodone Allergy Intermediate 06/08/16 Yes tramadol Allergy Intermediate Nausea and Vomiting 07/01/16 Yes Physical Exam Physical Exam General appearance - alert, ill appearing, and in no distress Mental Status - alert, oriented to person, place, and time, affect appropriate to mood Head - normal Chest - clear to auscultation, no wheezes, rales or rhonchi Heart - S1 and S2 normal Abdomen - soft, nontender, nondistended, obese, BS + Neurological - no acute focal neurological deficit noted. Musculoskeletal - no muscular tenderness noted Extremities - RLE swollen, R foot reddened/yellow circular are in redness, warm , tender. bilateral lower leg venous stasis changes noted. Skin - warm and dry VTE Prophylaxis Ordered VTE Prophylaxis Devices: No VTE Pharmacological Prophylaxi: Yes (Eliquis) Assessment Labs Laboratory Tests Test 12/21/16 13:53 12/21/16 15:10 12/21/16 19:00 12/21/16 23:53 White Blood Count 8.8x10^3/uL (4.0-11.0) Red Blood Count 4.76x10^6/uL (3.50-5.40) Hemoglobin 13.5g/dL (12.0-15.5) Hematocrit 41.9% (36.0-47.0) Mean Corpuscular Volume 88fL (79-100) Mean Corpuscular Hemoglobin 28pg (25-35) Mean Corpuscular Hemoglobin Concent 32g/dL (31-37) Red Cell Distribution Width 18.7% (11.5-14.5) Platelet Count 265x10^3/uL (140-400) Neutrophils (%) (Auto) 75% (31-73) Lymphocytes (%) (Auto) 17% (24-48) Monocytes (%) (Auto) 7% (0-9) Eosinophils (%) (Auto) 1% (0-3) Basophils (%) (Auto) 1% (0-3) Neutrophils # (Auto) 6.6x10^3uL (1.8-7.7) Lymphocytes # (Auto) 1.5x10^3/uL (1.0-4.8) Monocytes # (Auto) 0.6x10^3/uL (0.0-1.1) Eosinophils # (Auto) 0.1x10^3/uL (0.0-0.7) Basophils # (Auto) 0.1x10^3/uL (0.0-0.2) Prothrombin Time 15.0SEC (11.7-14.0) Prothromb Time International Ratio 1.3 (0.8-1.1) Activated Partial Thromboplast Time 30SEC (24-38) Sodium Level 141mmol/L (136-145) Potassium Level 4.4mmol/L (3.5-5.1) Chloride Level 99mmol/L (98-107) Carbon Dioxide Level 32mmol/L (21-32) Anion Gap 10 (6-14) Blood Urea Nitrogen 40mg/dL (7-20) Creatinine 2.4mg/dL (0.6-1.0) Estimated GFR (Cockcroft-Gault) 21.6 BUN/Creatinine Ratio 17 (6-20) Glucose Level 375mg/dL (70-99) Lactic Acid Level 4.4mmol/L (0.4-2.0) 4.2mmol/L (0.4-2.0) 2.4mmol/L (0.4-2.0) Calcium Level 9.2mg/dL (8.5-10.1) Total Bilirubin 0.6mg/dL (0.2-1.0) Aspartate Amino Transf (AST/SGOT) 23U/L (15-37) Alanine Aminotransferase (ALT/SGPT) 18U/L (14-59) Alkaline Phosphatase 125U/L (46-116) UG-Nen-M-Type Natriuretic Peptide 1337pg/mL (0-124) Total Protein 6.6g/dL (6.4-8.2) Albumin 2.9g/dL (3.4-5.0) Albumin/Globulin Ratio 0.8 (1.0-1.7) Glucose (Fingerstick) 161mg/dL (70-99) Test 12/22/16 04:15 White Blood Count 9.0x10^3/uL (4.0-11.0) Red Blood Count 4.47x10^6/uL (3.50-5.40) Hemoglobin 12.6g/dL (12.0-15.5) Hematocrit 39.2% (36.0-47.0) Mean Corpuscular Volume 88fL (79-100) Mean Corpuscular Hemoglobin 28pg (25-35) Mean Corpuscular Hemoglobin Concent 32g/dL (31-37) Red Cell Distribution Width 18.2% (11.5-14.5) Platelet Count 240x10^3/uL (140-400) Neutrophils (%) (Auto) 72% (31-73) Lymphocytes (%) (Auto) 18% (24-48) Monocytes (%) (Auto) 7% (0-9) Eosinophils (%) (Auto) 2% (0-3) Basophils (%) (Auto) 1% (0-3) Neutrophils # (Auto) 6.4x10^3uL (1.8-7.7) Lymphocytes # (Auto) 1.7x10^3/uL (1.0-4.8) Monocytes # (Auto) 0.6x10^3/uL (0.0-1.1) Eosinophils # (Auto) 0.2x10^3/uL (0.0-0.7) Basophils # (Auto) 0.1x10^3/uL (0.0-0.2) Sodium Level 142mmol/L (136-145) Potassium Level 3.3mmol/L (3.5-5.1) Chloride Level 100mmol/L (98-107) Carbon Dioxide Level 33mmol/L (21-32) Anion Gap 9 (6-14) Blood Urea Nitrogen 39mg/dL (7-20) Creatinine 2.3mg/dL (0.6-1.0) Estimated GFR (Cockcroft-Gault) 22.7 Glucose Level 150mg/dL (70-99) Calcium Level 8.9mg/dL (8.5-10.1) Magnesium Level 1.8mg/dL (1.8-2.4) Laboratory Tests Test 12/21/16 13:53 12/21/16 15:10 12/21/16 19:00 12/21/16 23:53 White Blood Count 8.8x10^3/uL (4.0-11.0) Red Blood Count 4.76x10^6/uL (3.50-5.40) Hemoglobin 13.5g/dL (12.0-15.5) Hematocrit 41.9% (36.0-47.0) Mean Corpuscular Volume 88fL (79-100) Mean Corpuscular Hemoglobin 28pg (25-35) Mean Corpuscular Hemoglobin Concent 32g/dL (31-37) Red Cell Distribution Width 18.7% (11.5-14.5) Platelet Count 265x10^3/uL (140-400) Neutrophils (%) (Auto) 75% (31-73) Lymphocytes (%) (Auto) 17% (24-48) Monocytes (%) (Auto) 7% (0-9) Eosinophils (%) (Auto) 1% (0-3) Basophils (%) (Auto) 1% (0-3) Neutrophils # (Auto) 6.6x10^3uL (1.8-7.7) Lymphocytes # (Auto) 1.5x10^3/uL (1.0-4.8) Monocytes # (Auto) 0.6x10^3/uL (0.0-1.1) Eosinophils # (Auto) 0.1x10^3/uL (0.0-0.7) Basophils # (Auto) 0.1x10^3/uL (0.0-0.2) Prothrombin Time 15.0SEC (11.7-14.0) Prothromb Time International Ratio 1.3 (0.8-1.1) Activated Partial Thromboplast Time 30SEC (24-38) Sodium Level 141mmol/L (136-145) Potassium Level 4.4mmol/L (3.5-5.1) Chloride Level 99mmol/L (98-107) Carbon Dioxide Level 32mmol/L (21-32) Anion Gap 10 (6-14) Blood Urea Nitrogen 40mg/dL (7-20) Creatinine 2.4mg/dL (0.6-1.0) Estimated GFR (Cockcroft-Gault) 21.6 BUN/Creatinine Ratio 17 (6-20) Glucose Level 375mg/dL (70-99) Lactic Acid Level 4.4mmol/L (0.4-2.0) 4.2mmol/L (0.4-2.0) 2.4mmol/L (0.4-2.0) Calcium Level 9.2mg/dL (8.5-10.1) Total Bilirubin 0.6mg/dL (0.2-1.0) Aspartate Amino Transf (AST/SGOT) 23U/L (15-37) Alanine Aminotransferase (ALT/SGPT) 18U/L (14-59) Alkaline Phosphatase 125U/L (46-116) KG-Dho-G-Type Natriuretic Peptide 1337pg/mL (0-124) Total Protein 6.6g/dL (6.4-8.2) Albumin 2.9g/dL (3.4-5.0) Albumin/Globulin Ratio 0.8 (1.0-1.7) Glucose (Fingerstick) 161mg/dL (70-99) Test 12/22/16 04:15 White Blood Count 9.0x10^3/uL (4.0-11.0) Red Blood Count 4.47x10^6/uL (3.50-5.40) Hemoglobin 12.6g/dL (12.0-15.5) Hematocrit 39.2% (36.0-47.0) Mean Corpuscular Volume 88fL (79-100) Mean Corpuscular Hemoglobin 28pg (25-35) Mean Corpuscular Hemoglobin Concent 32g/dL (31-37) Red Cell Distribution Width 18.2% (11.5-14.5) Platelet Count 240x10^3/uL (140-400) Neutrophils (%) (Auto) 72% (31-73) Lymphocytes (%) (Auto) 18% (24-48) Monocytes (%) (Auto) 7% (0-9) Eosinophils (%) (Auto) 2% (0-3) Basophils (%) (Auto) 1% (0-3) Neutrophils # (Auto) 6.4x10^3uL (1.8-7.7) Lymphocytes # (Auto) 1.7x10^3/uL (1.0-4.8) Monocytes # (Auto) 0.6x10^3/uL (0.0-1.1) Eosinophils # (Auto) 0.2x10^3/uL (0.0-0.7) Basophils # (Auto) 0.1x10^3/uL (0.0-0.2) Sodium Level 142mmol/L (136-145) Potassium Level 3.3mmol/L (3.5-5.1) Chloride Level 100mmol/L (98-107) Carbon Dioxide Level 33mmol/L (21-32) Anion Gap 9 (6-14) Blood Urea Nitrogen 39mg/dL (7-20) Creatinine 2.3mg/dL (0.6-1.0) Estimated GFR (Cockcroft-Gault) 22.7 Glucose Level 150mg/dL (70-99) Calcium Level 8.9mg/dL (8.5-10.1) Magnesium Level 1.8mg/dL (1.8-2.4) Plan Plan 1. abscess with cellulitis R foot/sepsis 2. DVT RLE 12/11/16 on Eliquis with h/o PE, DVT RLE & IVC filter 3. ARF with CKD IV ATN due to diuresis 4. chronic CHF systolic EF 30-35% not acute 5. DM II with neuropathy, PVD, chronic insulin use 6. anxiety/depression 7. HTN 8. hyperlipidemia 9. CAD with h/o RI and PCI with stent placed 10. GERD 11. chronic LBP 12. h/o hypercapnic/hypoxic respiratory failure with narcotics 13. COPD 14. h/o CVA 15. COPD with remote h/o tobacco abuse 16. n/v due to anxiety resolved 17. urine retention with temporary price, stopped at DCR foot plantar diabetic ulcer non healing with osteomyelitis and h/o recent debridement to bone 06/26 s /p amputation R procedure 4th and 5th toes 07/16/16 18. h/o R foot plantar diabetic ulcer non healing with osteomyelitis ( debridement to bone 06/26 s/p amputation R procedure 4th and 5th toes 10/06/16) 20. morbid obesity 21. JENNA O2 3L NC at hs PLAN: abscess/infected R foot Levaquin/flagyl/vanc dosed in ED Lactic acid 4.4 -(approximately 4L IVF administered) 12/22 2.4 ortho consult XR foot negative niels involvement ID consult-[email or web address] pre op surgery: ID and wound vac placement ARF taking zaroxlyn 2.5mg bid since Wednesday + chronic torsemide 100mg daily 07/18/16 BUN 29 Cr 1.9 Admit BUN 40 12/22 29 Cr 2.4 2.3 K 4.4 3.3 Stop zaroxlyn Replace potassium 20 meq po x 1 12/22 No IVF at this time-going to surgery and 4L already given-eval in AM CHF Admit weight 281.37 IO Daily weight BNP 1337-secondary to ARF, not acute CHF CXR clear DVT RLE Eliquis 5mg bid Hold since admit Restart this evening after surgery (per Dr. Robles)_ DM II FSBS/SSI Levemir 30u bid Novolog 15u tid ac SSI low intensity h/o hypercapnic respiratory failure with narcotics Last admission Dilaudid 2-4mg IV q3hr prn post op-continue that this admission staff advised of risk with narcotic meds with respiratory status. DVT/GI prophylaxis Eliquis PPI For more details regarding further plans, please refer to the orders. CHELE SINGH MD 12/22/16 0944: HISTORY AND PHYSICAL Plan Plan The patient was seen and examined by me. Chart reviewed and plan of care formulated. Discussed with, reviewed and agree with [facility]'s notes, plan of care and orders with modifications as necessary. For more details regarding further plans, please refer to the orders. YVONNE LAYNE APRN Dec 22, 2016 08:00 CHELE SINGH MD Dec 22, 2016 09:44
[2016-12-22] MEDS: ANTI-COAG MONITOR BY PHARMACY. MC PRN (08:02)
--- NOTE | 2016-12-22 08:44 | PDOC ---
Infectious Disease Note ROS ROS GEN: Denies fevers, chills, sweats HEENT: Denies blurred vision, sore throat CV: Denies chest pain RESP: Denies shortness of air, cough GI: Denies n/v/d NEURO: Denies confusion, dizziness MSK: Denies weakness, joint pain/swelling Vital Sign Vital Signs Vital Signs Date Time Temp Pulse Resp B/P Pulse Ox O2 Delivery O2 Flow Rate FiO2 12/22/16 07:37 92 Nasal Cannula 2.0 12/22/16 07:00 98.5 107 18 93/52 98.5 Physical Exam PHYSICAL EXAM GENERAL: NAD, Alert HEENT: PERRL, OC/OP NECK: Supple, no JVD, no LN LUNGS: Clear HEART: S1S2, no gallop, no murmur ABD: Soft, NT, no organomegaly, no rebound EXT: No edema, no cyanosis MANAGEMENT AIDE: Alert, oriented x 3, no focal neurologic deficit SKIN: No rash IV: ok Labs Lab Laboratory Tests Test 12/21/16 13:53 12/21/16 15:10 12/21/16 19:00 12/21/16 23:53 White Blood Count 8.8x10^3/uL (4.0-11.0) Red Blood Count 4.76x10^6/uL (3.50-5.40) Hemoglobin 13.5g/dL (12.0-15.5) Hematocrit 41.9% (36.0-47.0) Mean Corpuscular Volume 88fL (79-100) Mean Corpuscular Hemoglobin 28pg (25-35) Mean Corpuscular Hemoglobin Concent 32g/dL (31-37) Red Cell Distribution Width 18.7% (11.5-14.5) Platelet Count 265x10^3/uL (140-400) Neutrophils (%) (Auto) 75% (31-73) Lymphocytes (%) (Auto) 17% (24-48) Monocytes (%) (Auto) 7% (0-9) Eosinophils (%) (Auto) 1% (0-3) Basophils (%) (Auto) 1% (0-3) Neutrophils # (Auto) 6.6x10^3uL (1.8-7.7) Lymphocytes # (Auto) 1.5x10^3/uL (1.0-4.8) Monocytes # (Auto) 0.6x10^3/uL (0.0-1.1) Eosinophils # (Auto) 0.1x10^3/uL (0.0-0.7) Basophils # (Auto) 0.1x10^3/uL (0.0-0.2) Prothrombin Time 15.0SEC (11.7-14.0) Prothromb Time International Ratio 1.3 (0.8-1.1) Activated Partial Thromboplast Time 30SEC (24-38) Sodium Level 141mmol/L (136-145) Potassium Level 4.4mmol/L (3.5-5.1) Chloride Level 99mmol/L (98-107) Carbon Dioxide Level 32mmol/L (21-32) Anion Gap 10 (6-14) Blood Urea Nitrogen 40mg/dL (7-20) Creatinine 2.4mg/dL (0.6-1.0) Estimated GFR (Cockcroft-Gault) 21.6 BUN/Creatinine Ratio 17 (6-20) Glucose Level 375mg/dL (70-99) Lactic Acid Level 4.4mmol/L (0.4-2.0) 4.2mmol/L (0.4-2.0) 2.4mmol/L (0.4-2.0) Calcium Level 9.2mg/dL (8.5-10.1) Total Bilirubin 0.6mg/dL (0.2-1.0) Aspartate Amino Transf (AST/SGOT) 23U/L (15-37) Alanine Aminotransferase (ALT/SGPT) 18U/L (14-59) Alkaline Phosphatase 125U/L (46-116) VT-Tjc-X-Type Natriuretic Peptide 1337pg/mL (0-124) Total Protein 6.6g/dL (6.4-8.2) Albumin 2.9g/dL (3.4-5.0) Albumin/Globulin Ratio 0.8 (1.0-1.7) Glucose (Fingerstick) 161mg/dL (70-99) Test 12/22/16 04:15 12/22/16 07:49 White Blood Count 9.0x10^3/uL (4.0-11.0) Red Blood Count 4.47x10^6/uL (3.50-5.40) Hemoglobin 12.6g/dL (12.0-15.5) Hematocrit 39.2% (36.0-47.0) Mean Corpuscular Volume 88fL (79-100) Mean Corpuscular Hemoglobin 28pg (25-35) Mean Corpuscular Hemoglobin Concent 32g/dL (31-37) Red Cell Distribution Width 18.2% (11.5-14.5) Platelet Count 240x10^3/uL (140-400) Neutrophils (%) (Auto) 72% (31-73) Lymphocytes (%) (Auto) 18% (24-48) Monocytes (%) (Auto) 7% (0-9) Eosinophils (%) (Auto) 2% (0-3) Basophils (%) (Auto) 1% (0-3) Neutrophils # (Auto) 6.4x10^3uL (1.8-7.7) Lymphocytes # (Auto) 1.7x10^3/uL (1.0-4.8) Monocytes # (Auto) 0.6x10^3/uL (0.0-1.1) Eosinophils # (Auto) 0.2x10^3/uL (0.0-0.7) Basophils # (Auto) 0.1x10^3/uL (0.0-0.2) Sodium Level 142mmol/L (136-145) Potassium Level 3.3mmol/L (3.5-5.1) Chloride Level 100mmol/L (98-107) Carbon Dioxide Level 33mmol/L (21-32) Anion Gap 9 (6-14) Blood Urea Nitrogen 39mg/dL (7-20) Creatinine 2.3mg/dL (0.6-1.0) Estimated GFR (Cockcroft-Gault) 22.7 Glucose Level 150mg/dL (70-99) Calcium Level 8.9mg/dL (8.5-10.1) Magnesium Level 1.8mg/dL (1.8-2.4) Glucose (Fingerstick) 140mg/dL (70-99) Objective Assessment Right foot cellulitis Right foot abscess Multiple abx allergies KENDAL on CKD DVT RLE Plan Plan of Care D/c Levoflox/Flagyl/Vanc Dose Meropenem/Zyvox/(H/o MSSA at risk of MRSA and with KENDAL),Fluconazole F/u labs and cults To OR today D/w Dr. Robles and Jony SAUCEDO # [id number] ARACELI LU MD Dec 22, 2016 08:44
[2016-12-22] MEDS: INSULIN DETEMIR 300 UNITS/3 ML INSULN.PEN. SQ SCH ×2 (09:00→22:36)
[2016-12-22] MEDS: POLYETHYLENE GLYCOL 3350 17 GM PACKET. PO SCH (09:00)
[2016-12-22] MEDS: APIXABAN 5 MG TABLET. PO SCH ×2 (09:00→21:00)
[2016-12-22] MEDS ORDERED: APIXABAN 5 MG TABLET. PO SCH (09:00)
[2016-12-22] MEDS: HYDROMORPHONE 2 MG/ML VIAL. IV PRN ×4 (09:17→22:14)
[2016-12-22] MEDS: POTASSIUM CHLORIDE 20 MEQ TABLET.ER. PO SCH (09:17)
[2016-12-22] MEDS ORDERED: POTASSIUM CHLORIDE 20 MEQ TABLET.ER. PO ONE (09:30)
--- NOTE | 2016-12-22 09:40 | EKG ---
[facility] [address] [place] [address] Test Date: 2016-12-22 Test Time: 09:38:34 Pat Name: ADRIEL GOOD Department: Room: 210 1 Gender: F Coil Inspector: ANGELIKA : 1970 Requested By: YVONNE LAYNE Order Number: [id number] Reading MD: Jess Rosales Measurements Intervals Steele Rate: 108 P: -160 MS: 174 QRS: -91 QRSD: 142 T: 12 QT: 370 QTc: 500 Interpretive Statements SINUS RHYTHM ABNORMAL RIGHT SUPERIOR AXIS DEVIATION NON SPECIFIC INTRAVENTRICULAR BLOCK RVH WITH REPOLARIZATION ABNORMALITY QRS(T) CONTOUR ABNORMALITY CONSISTENT WITH ANTERIOR INFARCT AGE UNDETERMINED ABNORMAL ECG Electronically Signed On 12-23-2016 21:11:32 CDT by Jess Rosales
[2016-12-22 10:40] VITALS: BP 94/63
[2016-12-22] MEDS ORDERED: LIDOCAINE 2% 100 MG/5 ML DISP.SYRIN. ONE (10:47)
[2016-12-22] MEDS ORDERED: PROPOFOL 20 ML IV ONE (10:47)
[2016-12-22] MEDS: MEROPENEM 500 MG in IV NORMAL SALINE 50ML 50 ML IV SCH ×3 (11:10→17:44)
[2016-12-22] MEDS: FLUCONAZOLE 100MG/50ML PREMIX 50 ML IV SCH (11:26)
[2016-12-22] MEDS ORDERED: ONDANSETRON PF 4 MG/2 ML VIAL. ONE (11:56)
[2016-12-22] MEDS ORDERED: PHENYLEPHRINE in 0.9% NACL PF 1 MG/10 ML DISP.SYRIN. IV ONE (11:56)
[2016-12-22] MEDS ORDERED: DEXAMETHASONE SOD PHOS 20 MG/5 ML VIAL. ONE (11:59)
[2016-12-22] MEDS ORDERED: SEVOFLURANE 31 TO 60 MINUTES. IH ONE (12:00)
--- NOTE | 2016-12-22 12:05 | PDOC ---
BRIEF OPERATIVE NOTE Date: Dec 22, 2016 Pre-Op Diagnosis R foot cellulitis/abscess Post-Op Diagnosis same Procedure Performed I and D; VAC Surgeon Margaret Anesthesiologist Keisha Anesthesia Type: General Blood Loss 5mL Specimens Obtained Tissue and Cx obtained Findings no gross purulence Complications none KARTHIK NICOLE II, MD Dec 22, 2016 12:05
[2016-12-22] MEDS ORDERED: IV RINGERS,LACTATED 1000ML 1,000 ML IV SCH (12:18)
--- NOTE | 2016-12-22 12:24 | CONS ---
DATE OF CONSULTATION: 12/22/2016 PATIENT'S ROOM: 210 REQUESTING PHYSICIAN: Dr. Johnson. REASON FOR CONSULTATION: Foot cellulitis, questionable abscess. HISTORY OF PRESENT ILLNESS: The patient is a 46-year-old female with history of diabetes and obesity and previous right lower extremity wound infection with MSSA and group B strep. She underwent amputation of fourth and fifth toes on the right side on 11/15/2016. She had been followed up in the wound care center until approximately 2-3 weeks ago. She states about a week or so ago, she developed redness on her right foot. She denies any trauma or scrapes. Over the course of the week, she had increased swelling. She had subjective fevers or chills and sweats. She then presented to the Emergency Room of [facility] on the 12/21/2016. She has been afebrile since her admission; however, her white blood cell count was 8.8 with 75% neutrophils. She underwent an x-ray of her foot which showed postsurgical change, but no bony abnormality. She was placed on vancomycin, levofloxacin and Flagyl and has been admitted to the hospital. Of note, her creatinine is running about 2.3. It was 2.54 at the presentation. Additionally, she underwent an ultrasound of her lower extremity on 12/11/2016. It showed DVT extending to the right superficial femoral and right common femoral veins. A CT scan of her right lower extremity on the showed diffuse subcutaneous soft tissue stranding suggesting edema within the right lower leg. No fluid collection was seen. Currently, she is lying in bed. She has had decreased appetite. No gross headaches, sore throat or cough or chest pain. No dysuria, no diarrhea. PAST MEDICAL HISTORY: Again is positive for previous diabetic foot infection with previous history of MSSA as well as group B strep, history of previous pseudomonas, was intermediate to gentamicin, history of diabetes, peripheral neuropathy, coronary artery disease, congestive heart failure, hypertension, previous myocardial infarction, the above-mentioned DVT, hyperlipidemia, COPD, gastroesophageal reflux disease, anxiety, depression, chronic low back pain, chronic kidney disease stage 4 peripheral vascular disease. PAST SURGICAL HISTORY: Positive for cardiac stent, IVC filter placement and status post ray amputation of fourth and fifth toes as mentioned above. REVIEW OF SYSTEMS: Otherwise negative except as mentioned above. ALLERGIES: LISTED PENICILLIN CAUSES HER THROAT TO SWELL, BUT SHE HAS TOLERATED MEROPENEM. SULFA, AMOXICILLIN, CLARITHROMYCIN, CODEINE, HYDROCODONE, MORPHINE AND OXYCODONE ARE ALSO LISTED. SOCIAL HISTORY: She lives at home. History of smoking. FAMILY HISTORY: Positive for coronary artery disease, diabetes, and hypertension. CURRENT MEDICATIONS: Include vancomycin, levofloxacin and metronidazole, Eliquis, Lipitor, Ecotrin, Coreg, Pepcid, fentanyl, insulin, Demadex. Other meds are available and have been reviewed in the chart. PHYSICAL EXAMINATION: VITAL SIGNS: She is afebrile, temperature 95, pulse 107, respirations 18, blood pressure 93/52. She is satting 92% on 2 liters. CONSTITUTIONAL: She is sitting upright in bed. She is cooperative. She is in no acute distress. HEENT: Pupils are equal and reactive. She has normal conjunctivae. Oral cavity, oropharynx is clear. NECK: Supple, no JVD. LUNGS: Clear to auscultation. HEART: S1, S2. ABDOMEN: Mildly obese, soft, nontender, nondistended, positive bowel sounds. EXTREMITIES: Without clubbing, cyanosis. Her right lower extremity has 2-3+ edema on the dorsal aspect with surrounding erythema. There is a mild eschar on the top. The foot is warm. It appears there is some fluctuance. SKIN: Otherwise, warm to touch without signs of rash. NEUROLOGIC: She moves all extremities. PSYCHIATRIC: Affect is somewhat flat. LABORATORY DATA: White count 9, hemoglobin 12.6, platelets of 240, neutrophils 72, lymphs are 18, glucose 150, creatinine 2.3. Lactic acid was high at 4.4, most recently 2.4. Essentially normal liver function study tests except for mild alkaline phosphatase elevation at 125. Radiology reviewed in history of present illness. IMPRESSION: 1. Right foot cellulitis. 2. Right foot abscess. 3. Multiple antibiotic allergies. 4. Acute kidney injury on chronic kidney disease. 5. History of DVT, right lower extremity. RECOMMENDATIONS: Continue levofloxacin, Flagyl and vancomycin. We will dose meropenem, also we will add Zyvox given her history of MSSA. She is at risk of MRSA and also she is in acute kidney injury so we will hold off on further vancomycin. Additionally, we will add fluconazole. Follow up on labs, cultures taken in the operating room today. This was discussed with ____ as well as ____ nurse practitioner for Dr. Johnson. Thank you for the opportunity to participate in the patient's care. If you have any questions, please do not hesitate to contact me. ARACELI LU MD DR: TORY/britney JOB#: [id number] / [id number]
[2016-12-22] MEDS ORDERED: PROCHLORPERAZINE 10 MG/2 ML VIAL. IV PRN (12:30)
[2016-12-22] MEDS ORDERED: LIDOCAINE 1% 1 ML SYRINGE. ID PRN (12:30)
[2016-12-22] MEDS: SPIRONOLACTONE 25 MG TABLET PO SCH (13:53)
[2016-12-22] MEDS: PANTOPRAZOLE 40 MG TABLET. PO SCH (13:54)
[2016-12-22] MEDS: ASPIRIN ENTERIC COATED 81 MG TABLET.DR. PO SCH (13:54)
[2016-12-22] MEDS: ASCORBIC ACID 500 MG TABLET PO SCH (13:54)
[2016-12-22] MEDS: TORSEMIDE 20 MG TABLET. PO SCH (13:54)
[2016-12-22 14:51] VITALS: BP 111/61
[2016-12-22] MEDS ORDERED: VANCOMYCIN 2 GM in IV NORMAL SALINE 500ML BAG 500 ML IV SCH (15:00)
--- NOTE | 2016-12-22 17:13 | OP ---
DATE OF SURGERY: 12/22/2016 SURGEON: Jose Nicole MD [employer]: None. ANESTHESIA: General. PREOPERATIVE DIAGNOSIS: Right foot cellulitis, likely abscess. POSTOPERATIVE DIAGNOSIS: Right foot cellulitis with fluid collection. ESTIMATED BLOOD LOSS: 5 mL. COMPLICATIONS: None. SPECIMENS: Tissue for culture and swabs for culture were sent off to microbiology. FINDINGS: No gross purulence. She did have some subcutaneous tissue necrosis, which was debrided. There was a fluid filled pocket over the dorsum of her foot underneath the erythematous area, but no gross purulence. REASON FOR PROCEDURE: The patient is a very pleasant 46-year-old female who presented to the Emergency Department for worsening pain, redness and swelling at her right foot. I had seen her in consultation and recommended we proceed with an I and D and likely application of wound VAC. She agreed to this. PROCEDURES PERFORMED: 1. Irrigation and debridement down to muscle of right dorsal foot wound. 2. Application of wound VAC to wound approximately 6.5 cm x 2 cm with tunneling. DESCRIPTION OF PROCEDURE: The patient was greeted in the preoperative area by myself. Correct extremity was marked and verified. She was taken to the operative suite and maintained on routine antibiotics. After this, she was gently transferred supine in the OR table and secured to the bed with all pressure points padded. She then had successful induction of general anesthesia. We then prepped and draped the right lower extremity in usual sterile fashion including Betadine paint. Given her recent DVT, we did not use a tourniquet for this case. After prepping and draping, we conducted a standard preoperative timeout. After this, I made an incision over the central portion of the necrotic appearing skin and incised skin, bluntly dissected the subcutaneous tissue to explore it digitally. This did allow some extravasation of a straw-colored fluid without any gross purulence. I continued exploring the wound until I was satisfied, I had not missed any loculated areas. I then irrigated out the wound with approximately 500 mL of sterile normal saline and then proceeded to use a combination of curette and rongeur to debride some necrotic appearing tissue that was mainly confined to the subcutaneous tissue. Inspection of the deep layers including tendon and bone revealed no obvious gross pathologic changes. I took my tissue for culture as well as swabs for culture. She had a couple areas of venous oozing that were cauterized. I then irrigated out this wound with approximately another 2000 mL of sterile saline. After this, I cleansed and dried the foot and then proceeded to place wound VAC sponge that tunneled from the wound to the medial border of her foot underneath the erythematous area and then fashioned another wound VAC sponge over top of this for the soft tissue defect. I did excise some of the necrotic-appearing skin around this area as well. I then applied the VAC adhesive and created a tunnel with a VAC sponge over her anterior ankle and secured the suction tubing. I then tested the VAC to make sure it had a good seal and it did. We then cleansed and dried the right lower extremity and transferred gently supine to the recovery room cart after she was extubated. She was then taken back to the PACU in stable and extubated condition. Postop plan is for her to be nonweightbearing on her right lower extremity until the foot heels. She will have VAC changes. She will remain on antibiotics per Infectious Disease. JOSE NICOLE MD DR: BEL/britney JOB#: [id number] / [id number] ROSANA
[2016-12-22 19:35] VITALS: BP 104/72
[2016-12-22] MEDS: MONTELUKAST SODIUM 10 MG TABLET. PO SCH (22:13)
[2016-12-22] MEDS: ATORVASTATIN CALCIUM 40 MG TABLET. PO SCH (22:13)
[2016-12-22] MEDS ORDERED: CARVEDILOL 6.25 MG TABLET PO SCH (23:30)
[2016-12-22 23:45] VITALS: BP 130/75
--- NOTE | 2016-12-23 | CONS ---
DATE OF CONSULTATION: 12/22/2016 REFERRING PROVIDER: Dr. Johnson. CONSULTING PROVIDER: Jose Nicole MD REASON FOR CONSULTATION: Right foot infection. CHIEF COMPLAINT: Right foot pain. HISTORY OF PRESENT ILLNESS: The patient is a very pleasant 46-year-old female well known to me who underwent fourth and fifth ray amputations for diabetic foot wound and osteomyelitis approximately 5 months ago. She presented to the Emergency Department with worsening pain, redness and swelling over the dorsum of her right foot. She thinks that the skin over this area was nicked at one of her wound care followups and that it has just spread since then. She tells me it hurts worse with every step. The pain does radiate up her leg. She has not noticed any redness, swelling or drainage coming from her toes. REVIEW OF SYSTEMS: Twelve point review of systems negative except as per HPI. PAST MEDICAL HISTORY: 1. History of stroke, type 2 diabetes, morbid obesity, recent DVT, within a week. 2. GERD. 3. Hypercholesterolemia, hypertension, history of AK and chronic back pain. PAST SURGICAL HISTORY: Fourth and fifth right toe ray amputations from myself, angioplasty, cholecystectomy, , coronary stenting, vena cava filter, hernia surgery. SOCIAL HISTORY: No alcohol or tobacco. MEDICATIONS: Reviewed, please see MRAD. ALLERGIES: PENICILLIN, SULFA, AMOXICILLIN, CLARITHROMYCIN, CODEINE, HYDROCODONE, OXYCODONE, AND TRAMADOL. PHYSICAL EXAMINATION: GENERAL: The patient is alert and oriented, no acute distress. Mood and affect are appropriate. She is examined lying in the cardiovascular ICU bed. LUNGS: Respirations are unlabored with symmetric chest rise. CARDIOVASCULAR: Regular rate and rhythm. Edema at bilateral lower extremities with chronic venous stasis changes. ABDOMEN: Obese, and soft. EXTREMITIES: Examination of bilateral lower extremities reveals a weak dorsalis pedis on the left, I am unable to palpate one on the right, but there is a large amount of edema over the dorsum of her foot and ankle. She can wiggle her remaining three toes. She is tender to palpation around the fluctuant and erythematous approximately half size area over the dorsal lateral aspect of her foot. There is some central wound necrosis and purulent drainage from this. No other wounds. Her amputation site has healed well and is clean and dry. IMAGING: X-rays, three views of foot were interpreted by myself. The report was also reviewed. Has the aforementioned ray amputation visible, and a large amount of soft tissue swelling. IMPRESSION: Right foot abscess. PLAN: I did discuss treatment options with her including local wound care, which I do not think would be efficacious, I also discussed I and D and wound VAC, and below knee amputation with her. She is still quite adamant against a below knee amputation and therefore we will talk more about I and D and wound VAC and we will proceed with this. JOSE NICOLE MD DR: BEL/britney JOB#: [id number] / [id number] ROSANA
[2016-12-23] MEDS: MEROPENEM 500 MG in IV NORMAL SALINE 50ML 50 ML IV SCH ×5 (03:07→23:54)
[2016-12-23] MEDS: HYDROMORPHONE 2 MG/ML VIAL. IV PRN ×5 (03:08→22:52)
[2016-12-23 03:45] VITALS: BP 106/75
[2016-12-23 05:27] LABS: BASO # 0.1 x10^3/uL (0.0-0.2); BASO % 1 % (0-3); EOS % 0 % (0-3); HEMATOCRIT 40.6 % (36.0-47.0); HEMOGLOBIN 13.4 g/dL (12.0-15.5); LYMPH # 1.3 x10^3/uL (1.0-4.8); LYMPH % 13 % (24-48); MEAN CORPUSCULAR HEMOGLOBIN 28 pg (25-35); MEAN CORPUSCULAR HGB CONC 33 g/dL (31-37); MEAN CORPUSCULAR VOLUME 86 fL (79-100); MONO % 4 % (0-9); NEUT % 82 % (31-73); PLATELET COUNT 266 x10^3/uL (140-400); RED BLOOD COUNT 4.72 x10^6/uL (3.50-5.40); RED CELL DISTRIBUTION WIDTH 17.9 % (11.5-14.5); WHITE BLOOD COUNT 10.5 x10^3/uL (4.0-11.0)
[2016-12-23 05:50] LABS: ALBUMIN 2.7 g/dL (3.4-5.0); ALBUMIN/GLOBULIN RATIO 0.7 (1.0-1.7); CALCIUM 8.8 mg/dL (8.5-10.1); CREATININE 2.6 mg/dL (0.6-1.0); GFR 19.7; POTASSIUM 3.9 mmol/L (3.5-5.1); TOTAL BILIRUBIN 0.5 mg/dL (0.2-1.0); TOTAL PROTEIN 6.8 g/dL (6.4-8.2)
[2016-12-23] MEDS: PANTOPRAZOLE 40 MG TABLET. PO SCH (06:31)
[2016-12-23 07:00] VITALS: BP 111/69
--- NOTE | 2016-12-23 07:25 | PDOC ---
Infectious Disease Note Subjective Subjective Doing ok but constipated ROS ROS GEN: Denies fevers, chills, sweats HEENT: Denies blurred vision, sore throat CV: Denies chest pain RESP: Denies shortness of air, cough GI: Denies n/v/d. = constipated NEURO: Denies confusion, dizziness MSK: Denies weakness,- some pain Vital Sign Vital Signs Vital Signs Date Time Temp Pulse Resp B/P Pulse Ox O2 Delivery O2 Flow Rate FiO2 12/23/16 03:45 97.7 103 18 106/75 98 Nasal Cannula 2.0 97.7 Physical Exam PHYSICAL EXAM GENERAL: NAD, Alert HEENT: PERRL, OC/OP - clear NECK: Supple, no JVD, no LN LUNGS: Clear HEART: S1S2, no gallop, no murmur ABD: Soft, NT, no organomegaly, no rebound, Obese EXT: RLE with 2 to 3 plus edema, mild to mod erythema and warmth. Vac in place. NVI. no cyanosis MAXILLOFACIAL PROSTHODONTIST: Alert, oriented x 3, no focal neurologic deficit SKIN: No rash IV: ok Labs Lab Laboratory Tests Test 12/22/16 07:49 12/22/16 10:56 12/22/16 12:31 12/22/16 14:04 Glucose (Fingerstick) 140mg/dL (70-99) 153mg/dL (70-99) 179mg/dL (70-99) 245mg/dL (70-99) Test 12/22/16 16:51 12/22/16 21:22 12/23/16 04:54 Glucose (Fingerstick) 302mg/dL (70-99) 265mg/dL (70-99) White Blood Count 10.5x10^3/uL (4.0-11.0) Red Blood Count 4.72x10^6/uL (3.50-5.40) Hemoglobin 13.4g/dL (12.0-15.5) Hematocrit 40.6% (36.0-47.0) Mean Corpuscular Volume 86fL (79-100) Mean Corpuscular Hemoglobin 28pg (25-35) Mean Corpuscular Hemoglobin Concent 33g/dL (31-37) Red Cell Distribution Width 17.9% (11.5-14.5) Platelet Count 266x10^3/uL (140-400) Neutrophils (%) (Auto) 82% (31-73) Lymphocytes (%) (Auto) 13% (24-48) Monocytes (%) (Auto) 4% (0-9) Eosinophils (%) (Auto) 0% (0-3) Basophils (%) (Auto) 1% (0-3) Neutrophils # (Auto) 8.6x10^3uL (1.8-7.7) Lymphocytes # (Auto) 1.3x10^3/uL (1.0-4.8) Monocytes # (Auto) 0.5x10^3/uL (0.0-1.1) Eosinophils # (Auto) 0.0x10^3/uL (0.0-0.7) Basophils # (Auto) 0.1x10^3/uL (0.0-0.2) Sodium Level 139mmol/L (136-145) Potassium Level 3.9mmol/L (3.5-5.1) Chloride Level 97mmol/L (98-107) Carbon Dioxide Level 33mmol/L (21-32) Anion Gap 9 (6-14) Blood Urea Nitrogen 41mg/dL (7-20) Creatinine 2.6mg/dL (0.6-1.0) Estimated GFR (Cockcroft-Gault) 19.7 BUN/Creatinine Ratio 16 (6-20) Glucose Level 267mg/dL (70-99) Calcium Level 8.8mg/dL (8.5-10.1) Total Bilirubin 0.5mg/dL (0.2-1.0) Aspartate Amino Transf (AST/SGOT) 16U/L (15-37) Alanine Aminotransferase (ALT/SGPT) 15U/L (14-59) Alkaline Phosphatase 110U/L (46-116) Total Protein 6.8g/dL (6.4-8.2) Albumin 2.7g/dL (3.4-5.0) Albumin/Globulin Ratio 0.7 (1.0-1.7) Objective Assessment Right foot cellulitis Right foot abscess s/p I and D 12/22 - vac in place Multiple abx allergies KENDAL on CKD DVT RLE Plan Plan of Care Cont Meropenem/Zyvox/(H/o MSSA at risk of MRSA and with KENDAL),Fluconazole F/u labs and cults ARACELI LU MD Dec 23, 2016 07:25
[2016-12-23] MEDS: IPRATRPIUM/ALBUTEROL 0.5/2.5MG 3 ML NEBU. NEB SCH ×4 (07:32→19:31)
[2016-12-23] MEDS: SPIRONOLACTONE 25 MG TABLET PO SCH (07:53)
[2016-12-23] MEDS: ASCORBIC ACID 500 MG TABLET PO SCH (07:53)
[2016-12-23] MEDS: ASPIRIN ENTERIC COATED 81 MG TABLET.DR. PO SCH (08:02)
[2016-12-23] MEDS: POTASSIUM CHLORIDE 20 MEQ TABLET.ER. PO SCH (08:03)
[2016-12-23] MEDS: POLYETHYLENE GLYCOL 3350 17 GM PACKET. PO SCH (08:03)
[2016-12-23] MEDS: APIXABAN 5 MG TABLET. PO SCH ×2 (08:03→21:16)
[2016-12-23] MEDS: TORSEMIDE 20 MG TABLET. PO SCH (08:04)
[2016-12-23] MEDS: CARVEDILOL 6.25 MG TABLET PO SCH ×2 (08:04→17:00)
--- NOTE | 2016-12-23 08:04 | PDOC ---
ORTHO PROGRESS NOTES Subjective Foot still painful, but better. No new complaints Vitals Vital Signs Date Time Temp Pulse Resp B/P Pulse Ox O2 Delivery O2 Flow Rate FiO2 12/23/16 07:33 96 Nasal Cannula 3.0 12/23/16 03:45 97.7 103 18 106/75 97.7 Labs Laboratory Tests Test 12/21/16 12:26 12/21/16 13:53 12/21/16 15:10 12/21/16 15:59 Glucose (Fingerstick) 397mg/dL (70-99) 278mg/dL (70-99) White Blood Count 8.8x10^3/uL (4.0-11.0) Red Blood Count 4.76x10^6/uL (3.50-5.40) Hemoglobin 13.5g/dL (12.0-15.5) Hematocrit 41.9% (36.0-47.0) Mean Corpuscular Volume 88fL (79-100) Mean Corpuscular Hemoglobin 28pg (25-35) Mean Corpuscular Hemoglobin Concent 32g/dL (31-37) Red Cell Distribution Width 18.7% (11.5-14.5) Platelet Count 265x10^3/uL (140-400) Neutrophils (%) (Auto) 75% (31-73) Lymphocytes (%) (Auto) 17% (24-48) Monocytes (%) (Auto) 7% (0-9) Eosinophils (%) (Auto) 1% (0-3) Basophils (%) (Auto) 1% (0-3) Neutrophils # (Auto) 6.6x10^3uL (1.8-7.7) Lymphocytes # (Auto) 1.5x10^3/uL (1.0-4.8) Monocytes # (Auto) 0.6x10^3/uL (0.0-1.1) Eosinophils # (Auto) 0.1x10^3/uL (0.0-0.7) Basophils # (Auto) 0.1x10^3/uL (0.0-0.2) Prothrombin Time 15.0SEC (11.7-14.0) Prothromb Time International Ratio 1.3 (0.8-1.1) Activated Partial Thromboplast Time 30SEC (24-38) Sodium Level 141mmol/L (136-145) Potassium Level 4.4mmol/L (3.5-5.1) Chloride Level 99mmol/L (98-107) Carbon Dioxide Level 32mmol/L (21-32) Anion Gap 10 (6-14) Blood Urea Nitrogen 40mg/dL (7-20) Creatinine 2.4mg/dL (0.6-1.0) Estimated GFR (Cockcroft-Gault) 21.6 BUN/Creatinine Ratio 17 (6-20) Glucose Level 375mg/dL (70-99) Lactic Acid Level 4.4mmol/L (0.4-2.0) 4.2mmol/L (0.4-2.0) Calcium Level 9.2mg/dL (8.5-10.1) Total Bilirubin 0.6mg/dL (0.2-1.0) Aspartate Amino Transf (AST/SGOT) 23U/L (15-37) Alanine Aminotransferase (ALT/SGPT) 18U/L (14-59) Alkaline Phosphatase 125U/L (46-116) PK-Zgg-K-Type Natriuretic Peptide 1337pg/mL (0-124) Total Protein 6.6g/dL (6.4-8.2) Albumin 2.9g/dL (3.4-5.0) Albumin/Globulin Ratio 0.8 (1.0-1.7) Test 12/21/16 19:00 12/21/16 23:53 12/22/16 04:15 12/22/16 07:49 Lactic Acid Level 2.4mmol/L (0.4-2.0) Glucose (Fingerstick) 161mg/dL (70-99) 140mg/dL (70-99) White Blood Count 9.0x10^3/uL (4.0-11.0) Red Blood Count 4.47x10^6/uL (3.50-5.40) Hemoglobin 12.6g/dL (12.0-15.5) Hematocrit 39.2% (36.0-47.0) Mean Corpuscular Volume 88fL (79-100) Mean Corpuscular Hemoglobin 28pg (25-35) Mean Corpuscular Hemoglobin Concent 32g/dL (31-37) Red Cell Distribution Width 18.2% (11.5-14.5) Platelet Count 240x10^3/uL (140-400) Neutrophils (%) (Auto) 72% (31-73) Lymphocytes (%) (Auto) 18% (24-48) Monocytes (%) (Auto) 7% (0-9) Eosinophils (%) (Auto) 2% (0-3) Basophils (%) (Auto) 1% (0-3) Neutrophils # (Auto) 6.4x10^3uL (1.8-7.7) Lymphocytes # (Auto) 1.7x10^3/uL (1.0-4.8) Monocytes # (Auto) 0.6x10^3/uL (0.0-1.1) Eosinophils # (Auto) 0.2x10^3/uL (0.0-0.7) Basophils # (Auto) 0.1x10^3/uL (0.0-0.2) Sodium Level 142mmol/L (136-145) Potassium Level 3.3mmol/L (3.5-5.1) Chloride Level 100mmol/L (98-107) Carbon Dioxide Level 33mmol/L (21-32) Anion Gap 9 (6-14) Blood Urea Nitrogen 39mg/dL (7-20) Creatinine 2.3mg/dL (0.6-1.0) Estimated GFR (Cockcroft-Gault) 22.7 Glucose Level 150mg/dL (70-99) Calcium Level 8.9mg/dL (8.5-10.1) Magnesium Level 1.8mg/dL (1.8-2.4) Test 12/22/16 10:56 12/22/16 12:31 12/22/16 14:04 12/22/16 16:51 Glucose (Fingerstick) 153mg/dL (70-99) 179mg/dL (70-99) 245mg/dL (70-99) 302mg/dL (70-99) Test 12/22/16 21:22 12/23/16 04:54 Glucose (Fingerstick) 265mg/dL (70-99) White Blood Count 10.5x10^3/uL (4.0-11.0) Red Blood Count 4.72x10^6/uL (3.50-5.40) Hemoglobin 13.4g/dL (12.0-15.5) Hematocrit 40.6% (36.0-47.0) Mean Corpuscular Volume 86fL (79-100) Mean Corpuscular Hemoglobin 28pg (25-35) Mean Corpuscular Hemoglobin Concent 33g/dL (31-37) Red Cell Distribution Width 17.9% (11.5-14.5) Platelet Count 266x10^3/uL (140-400) Neutrophils (%) (Auto) 82% (31-73) Lymphocytes (%) (Auto) 13% (24-48) Monocytes (%) (Auto) 4% (0-9) Eosinophils (%) (Auto) 0% (0-3) Basophils (%) (Auto) 1% (0-3) Neutrophils # (Auto) 8.6x10^3uL (1.8-7.7) Lymphocytes # (Auto) 1.3x10^3/uL (1.0-4.8) Monocytes # (Auto) 0.5x10^3/uL (0.0-1.1) Eosinophils # (Auto) 0.0x10^3/uL (0.0-0.7) Basophils # (Auto) 0.1x10^3/uL (0.0-0.2) Sodium Level 139mmol/L (136-145) Potassium Level 3.9mmol/L (3.5-5.1) Chloride Level 97mmol/L (98-107) Carbon Dioxide Level 33mmol/L (21-32) Anion Gap 9 (6-14) Blood Urea Nitrogen 41mg/dL (7-20) Creatinine 2.6mg/dL (0.6-1.0) Estimated GFR (Cockcroft-Gault) 19.7 BUN/Creatinine Ratio 16 (6-20) Glucose Level 267mg/dL (70-99) Calcium Level 8.8mg/dL (8.5-10.1) Total Bilirubin 0.5mg/dL (0.2-1.0) Aspartate Amino Transf (AST/SGOT) 16U/L (15-37) Alanine Aminotransferase (ALT/SGPT) 15U/L (14-59) Alkaline Phosphatase 110U/L (46-116) Total Protein 6.8g/dL (6.4-8.2) Albumin 2.7g/dL (3.4-5.0) Albumin/Globulin Ratio 0.7 (1.0-1.7) Laboratory Tests Test 12/22/16 10:56 12/22/16 12:31 12/22/16 14:04 12/22/16 16:51 Glucose (Fingerstick) 153mg/dL (70-99) 179mg/dL (70-99) 245mg/dL (70-99) 302mg/dL (70-99) Test 12/22/16 21:22 12/23/16 04:54 Glucose (Fingerstick) 265mg/dL (70-99) White Blood Count 10.5x10^3/uL (4.0-11.0) Red Blood Count 4.72x10^6/uL (3.50-5.40) Hemoglobin 13.4g/dL (12.0-15.5) Hematocrit 40.6% (36.0-47.0) Mean Corpuscular Volume 86fL (79-100) Mean Corpuscular Hemoglobin 28pg (25-35) Mean Corpuscular Hemoglobin Concent 33g/dL (31-37) Red Cell Distribution Width 17.9% (11.5-14.5) Platelet Count 266x10^3/uL (140-400) Neutrophils (%) (Auto) 82% (31-73) Lymphocytes (%) (Auto) 13% (24-48) Monocytes (%) (Auto) 4% (0-9) Eosinophils (%) (Auto) 0% (0-3) Basophils (%) (Auto) 1% (0-3) Neutrophils # (Auto) 8.6x10^3uL (1.8-7.7) Lymphocytes # (Auto) 1.3x10^3/uL (1.0-4.8) Monocytes # (Auto) 0.5x10^3/uL (0.0-1.1) Eosinophils # (Auto) 0.0x10^3/uL (0.0-0.7) Basophils # (Auto) 0.1x10^3/uL (0.0-0.2) Sodium Level 139mmol/L (136-145) Potassium Level 3.9mmol/L (3.5-5.1) Chloride Level 97mmol/L (98-107) Carbon Dioxide Level 33mmol/L (21-32) Anion Gap 9 (6-14) Blood Urea Nitrogen 41mg/dL (7-20) Creatinine 2.6mg/dL (0.6-1.0) Estimated GFR (Cockcroft-Gault) 19.7 BUN/Creatinine Ratio 16 (6-20) Glucose Level 267mg/dL (70-99) Calcium Level 8.8mg/dL (8.5-10.1) Total Bilirubin 0.5mg/dL (0.2-1.0) Aspartate Amino Transf (AST/SGOT) 16U/L (15-37) Alanine Aminotransferase (ALT/SGPT) 15U/L (14-59) Alkaline Phosphatase 110U/L (46-116) Total Protein 6.8g/dL (6.4-8.2) Albumin 2.7g/dL (3.4-5.0) Albumin/Globulin Ratio 0.7 (1.0-1.7) Notes no orgs on gram stain A and A RLE: edema unchanged at ankle, better at foot erythema improved wiggles toes VAC in place with good seal Assessment and Plan ok to weight bear for transfers, ok to use kneeling scooter VAC change, would rec covering dorsal wound, not needed at soft tissue tunnel medially abx per ID KARTHIK NICOLE II, MD Dec 23, 2016 08:04
--- NOTE | 2016-12-23 08:05 | PDOC ---
RAMONITACRISTINAYVONNE CURING [employer]ER 12/23/16 0805: IM PROGRESS NOTES- Subjective Subjective no chills, dyspnea Objective Objective alert, no distress Vitals Vital Signs Date Time Temp Pulse Resp B/P Pulse Ox O2 Delivery O2 Flow Rate FiO2 12/23/16 07:33 96 Nasal Cannula 3.0 12/23/16 03:45 97.7 103 18 106/75 97.7 Input & Output Intake and Output 12/23/16 07:00 Intake Total 1320 ml Output Total 1205 ml Balance 115 ml Intake Oral 770 ml IV Total 550 ml Output Urine Total 1200 ml Estimated Blood Loss 5 ml Physical Exam Physical Exam General appearance - alert,well appearing, and in no distress Mental Status - alert, oriented to person, place, and time, affect appropriate to mood Head - normal Chest - clear to auscultation, no wheezes, rales or rhonchi, symmetric air entry Heart - S1 and S2 normal Abdomen - soft, nontender, nondistended, BS+ Neurological - no acute focal neurological deficits noted Musculoskeletal - no muscular tenderness noted Extremities - ++ swelling RLE, wound vac R foot. IV RAC slight red. Skin - warm and dry Labs Laboratory Tests Test 12/21/16 12:26 12/21/16 13:53 12/21/16 15:10 12/21/16 15:59 Glucose (Fingerstick) 397mg/dL (70-99) 278mg/dL (70-99) White Blood Count 8.8x10^3/uL (4.0-11.0) Red Blood Count 4.76x10^6/uL (3.50-5.40) Hemoglobin 13.5g/dL (12.0-15.5) Hematocrit 41.9% (36.0-47.0) Mean Corpuscular Volume 88fL (79-100) Mean Corpuscular Hemoglobin 28pg (25-35) Mean Corpuscular Hemoglobin Concent 32g/dL (31-37) Red Cell Distribution Width 18.7% (11.5-14.5) Platelet Count 265x10^3/uL (140-400) Neutrophils (%) (Auto) 75% (31-73) Lymphocytes (%) (Auto) 17% (24-48) Monocytes (%) (Auto) 7% (0-9) Eosinophils (%) (Auto) 1% (0-3) Basophils (%) (Auto) 1% (0-3) Neutrophils # (Auto) 6.6x10^3uL (1.8-7.7) Lymphocytes # (Auto) 1.5x10^3/uL (1.0-4.8) Monocytes # (Auto) 0.6x10^3/uL (0.0-1.1) Eosinophils # (Auto) 0.1x10^3/uL (0.0-0.7) Basophils # (Auto) 0.1x10^3/uL (0.0-0.2) Prothrombin Time 15.0SEC (11.7-14.0) Prothromb Time International Ratio 1.3 (0.8-1.1) Activated Partial Thromboplast Time 30SEC (24-38) Sodium Level 141mmol/L (136-145) Potassium Level 4.4mmol/L (3.5-5.1) Chloride Level 99mmol/L (98-107) Carbon Dioxide Level 32mmol/L (21-32) Anion Gap 10 (6-14) Blood Urea Nitrogen 40mg/dL (7-20) Creatinine 2.4mg/dL (0.6-1.0) Estimated GFR (Cockcroft-Gault) 21.6 BUN/Creatinine Ratio 17 (6-20) Glucose Level 375mg/dL (70-99) Lactic Acid Level 4.4mmol/L (0.4-2.0) 4.2mmol/L (0.4-2.0) Calcium Level 9.2mg/dL (8.5-10.1) Total Bilirubin 0.6mg/dL (0.2-1.0) Aspartate Amino Transf (AST/SGOT) 23U/L (15-37) Alanine Aminotransferase (ALT/SGPT) 18U/L (14-59) Alkaline Phosphatase 125U/L (46-116) BE-Wcp-Y-Type Natriuretic Peptide 1337pg/mL (0-124) Total Protein 6.6g/dL (6.4-8.2) Albumin 2.9g/dL (3.4-5.0) Albumin/Globulin Ratio 0.8 (1.0-1.7) Test 12/21/16 19:00 12/21/16 23:53 12/22/16 04:15 12/22/16 07:49 Lactic Acid Level 2.4mmol/L (0.4-2.0) Glucose (Fingerstick) 161mg/dL (70-99) 140mg/dL (70-99) White Blood Count 9.0x10^3/uL (4.0-11.0) Red Blood Count 4.47x10^6/uL (3.50-5.40) Hemoglobin 12.6g/dL (12.0-15.5) Hematocrit 39.2% (36.0-47.0) Mean Corpuscular Volume 88fL (79-100) Mean Corpuscular Hemoglobin 28pg (25-35) Mean Corpuscular Hemoglobin Concent 32g/dL (31-37) Red Cell Distribution Width 18.2% (11.5-14.5) Platelet Count 240x10^3/uL (140-400) Neutrophils (%) (Auto) 72% (31-73) Lymphocytes (%) (Auto) 18% (24-48) Monocytes (%) (Auto) 7% (0-9) Eosinophils (%) (Auto) 2% (0-3) Basophils (%) (Auto) 1% (0-3) Neutrophils # (Auto) 6.4x10^3uL (1.8-7.7) Lymphocytes # (Auto) 1.7x10^3/uL (1.0-4.8) Monocytes # (Auto) 0.6x10^3/uL (0.0-1.1) Eosinophils # (Auto) 0.2x10^3/uL (0.0-0.7) Basophils # (Auto) 0.1x10^3/uL (0.0-0.2) Sodium Level 142mmol/L (136-145) Potassium Level 3.3mmol/L (3.5-5.1) Chloride Level 100mmol/L (98-107) Carbon Dioxide Level 33mmol/L (21-32) Anion Gap 9 (6-14) Blood Urea Nitrogen 39mg/dL (7-20) Creatinine 2.3mg/dL (0.6-1.0) Estimated GFR (Cockcroft-Gault) 22.7 Glucose Level 150mg/dL (70-99) Calcium Level 8.9mg/dL (8.5-10.1) Magnesium Level 1.8mg/dL (1.8-2.4) Test 12/22/16 10:56 12/22/16 12:31 12/22/16 14:04 12/22/16 16:51 Glucose (Fingerstick) 153mg/dL (70-99) 179mg/dL (70-99) 245mg/dL (70-99) 302mg/dL (70-99) Test 12/22/16 21:22 12/23/16 04:54 Glucose (Fingerstick) 265mg/dL (70-99) White Blood Count 10.5x10^3/uL (4.0-11.0) Red Blood Count 4.72x10^6/uL (3.50-5.40) Hemoglobin 13.4g/dL (12.0-15.5) Hematocrit 40.6% (36.0-47.0) Mean Corpuscular Volume 86fL (79-100) Mean Corpuscular Hemoglobin 28pg (25-35) Mean Corpuscular Hemoglobin Concent 33g/dL (31-37) Red Cell Distribution Width 17.9% (11.5-14.5) Platelet Count 266x10^3/uL (140-400) Neutrophils (%) (Auto) 82% (31-73) Lymphocytes (%) (Auto) 13% (24-48) Monocytes (%) (Auto) 4% (0-9) Eosinophils (%) (Auto) 0% (0-3) Basophils (%) (Auto) 1% (0-3) Neutrophils # (Auto) 8.6x10^3uL (1.8-7.7) Lymphocytes # (Auto) 1.3x10^3/uL (1.0-4.8) Monocytes # (Auto) 0.5x10^3/uL (0.0-1.1) Eosinophils # (Auto) 0.0x10^3/uL (0.0-0.7) Basophils # (Auto) 0.1x10^3/uL (0.0-0.2) Sodium Level 139mmol/L (136-145) Potassium Level 3.9mmol/L (3.5-5.1) Chloride Level 97mmol/L (98-107) Carbon Dioxide Level 33mmol/L (21-32) Anion Gap 9 (6-14) Blood Urea Nitrogen 41mg/dL (7-20) Creatinine 2.6mg/dL (0.6-1.0) Estimated GFR (Cockcroft-Gault) 19.7 BUN/Creatinine Ratio 16 (6-20) Glucose Level 267mg/dL (70-99) Calcium Level 8.8mg/dL (8.5-10.1) Total Bilirubin 0.5mg/dL (0.2-1.0) Aspartate Amino Transf (AST/SGOT) 16U/L (15-37) Alanine Aminotransferase (ALT/SGPT) 15U/L (14-59) Alkaline Phosphatase 110U/L (46-116) Total Protein 6.8g/dL (6.4-8.2) Albumin 2.7g/dL (3.4-5.0) Albumin/Globulin Ratio 0.7 (1.0-1.7) Laboratory Tests Test 12/22/16 07:49 12/22/16 10:56 12/22/16 12:31 12/22/16 14:04 Glucose (Fingerstick) 140mg/dL (70-99) 153mg/dL (70-99) 179mg/dL (70-99) 245mg/dL (70-99) Test 12/22/16 16:51 12/22/16 21:22 12/23/16 04:54 Glucose (Fingerstick) 302mg/dL (70-99) 265mg/dL (70-99) White Blood Count 10.5x10^3/uL (4.0-11.0) Red Blood Count 4.72x10^6/uL (3.50-5.40) Hemoglobin 13.4g/dL (12.0-15.5) Hematocrit 40.6% (36.0-47.0) Mean Corpuscular Volume 86fL (79-100) Mean Corpuscular Hemoglobin 28pg (25-35) Mean Corpuscular Hemoglobin Concent 33g/dL (31-37) Red Cell Distribution Width 17.9% (11.5-14.5) Platelet Count 266x10^3/uL (140-400) Neutrophils (%) (Auto) 82% (31-73) Lymphocytes (%) (Auto) 13% (24-48) Monocytes (%) (Auto) 4% (0-9) Eosinophils (%) (Auto) 0% (0-3) Basophils (%) (Auto) 1% (0-3) Neutrophils # (Auto) 8.6x10^3uL (1.8-7.7) Lymphocytes # (Auto) 1.3x10^3/uL (1.0-4.8) Monocytes # (Auto) 0.5x10^3/uL (0.0-1.1) Eosinophils # (Auto) 0.0x10^3/uL (0.0-0.7) Basophils # (Auto) 0.1x10^3/uL (0.0-0.2) Sodium Level 139mmol/L (136-145) Potassium Level 3.9mmol/L (3.5-5.1) Chloride Level 97mmol/L (98-107) Carbon Dioxide Level 33mmol/L (21-32) Anion Gap 9 (6-14) Blood Urea Nitrogen 41mg/dL (7-20) Creatinine 2.6mg/dL (0.6-1.0) Estimated GFR (Cockcroft-Gault) 19.7 BUN/Creatinine Ratio 16 (6-20) Glucose Level 267mg/dL (70-99) Calcium Level 8.8mg/dL (8.5-10.1) Total Bilirubin 0.5mg/dL (0.2-1.0) Aspartate Amino Transf (AST/SGOT) 16U/L (15-37) Alanine Aminotransferase (ALT/SGPT) 15U/L (14-59) Alkaline Phosphatase 110U/L (46-116) Total Protein 6.8g/dL (6.4-8.2) Albumin 2.7g/dL (3.4-5.0) Albumin/Globulin Ratio 0.7 (1.0-1.7) Meds Current Medications Acetaminophen (Tylenol) 650 mg PRN Q6HRS PRN PO MILD PAIN / TEMP; Start at 07:45; Status UNV Albuterol/ Ipratropium (Duoneb) 3 ml RTQID NEB Last administered on 12/23/16 07:32; Start 12/22/16 at 21:45 Apixaban (Eliquis) 5 mg BID PO ; Start 12/22/16 at 09:00 Apixaban (Eliquis) 10 mg DAILY PO ; Start 12/22/16 at 09:00; Stop 12/22/16 at 09 :00; Status DC Ascorbic Acid (Vitamin C) 500 mg DAILY PO Last administered on 12/22/16 13:54 ; Start 12/22/16 at 09:00 Aspirin (Ecotrin) 81 mg DAILY PO Last administered on 12/22/16 13:54; Start at 09:00 Carvedilol (Coreg) 6.25 mg BIDWMEALS PO ; Start 12/22/16 at 23:30; Stop at 23:30; Status DC Dexamethasone Sodium Phosphate (Decadron) 20 mg STK-MED ONCE .ROUTE ; Start at 11:59; Stop 12/22/16 at 12:00; Status DC Fentanyl Citrate (Fentanyl 2ml Vial) 25 mcg PRN Q5MIN PRN IV MILD PAIN Last administered on 12/22/16 12:45; Start 12/22/16 at 12:30; Stop 12/23/16 at 07:47 ; Status DC Fentanyl Citrate 50 mcg 50 mcg PRN Q5MIN PRN IV MODERATE PAIN Last administered on 12/22/16 13:20; Start 12/22/16 at 12:30; Stop 12/23/16 at 07:47 ; Status DC Fluconazole/ Sodium Chloride (Diflucan 100mg/ 50ml Premix) 50 ml @ 100 mls/hr Q24H IV Last administered on 12/22/16 11:26; Start 12/22/16 at 10:00 Hydromorphone HCl (Dilaudid) 2 mg PRN Q4HRS PRN IV PAIN Last administered on 03:08; Start 12/22/16 at 08:15 Hydromorphone HCl 1 mg 1 mg PRN Q4HRS PRN IV PAIN Last administered on 09:17; Start 12/22/16 at 08:15 Info (Anti-Coagulation Monitoring By Pharmacy) 1 each PRN DAILY PRN MC SEE COMMENTS Last administered on 12/22/16 08:02; Start 12/22/16 at 08:00 Insulin Aspart (Novolog) 15 units TIDWMEALS SQ Last administered on 12/22/16 12:00; Start 12/22/16 at 08:00; Stop 12/22/16 at 16:43; Status DC Insulin Aspart (Novolog) 35 units TIDWMEALS SQ Last administered on 12/22/16 17:51; Start 12/22/16 at 17:00 Insulin Detemir (Levemir) 60 units BID SQ Last administered on 12/22/16 22:36 ; Start 12/22/16 at 21:00 Lactated Ringer's (Iv Lactated Ringers) 1,000 ml @ 0 mls/hr Q0M IV ; Start at 12:18; Stop 12/23/16 at 00:17; Status DC Levofloxacin/ Dextrose 150 ml @ 100 mls/hr Q48H IV ; Start 12/23/16 at 15:00; Stop 12/23/16 at 15:00; Status DC Lidocaine HCl 2 ml 1X PRN PRN ID IV START; Start 12/22/16 at 12:30; Stop at 12:29 Lidocaine HCl 100 mg STK-MED ONCE .ROUTE ; Start 12/22/16 at 10:47; Stop at 10:48; Status DC Linezolid 300 ml @ 300 mls/hr Q12HR IV Last administered on 12/22/16 22:35; Start 12/22/16 at 09:00 Meropenem 500 mg/ Sodium Chloride 50 ml @ 100 mls/hr Q6HRS IV Last administered on 12/23/16 05:54; Start 12/22/16 at 09:00 Ondansetron HCl (Zofran) 4 mg STK-MED ONCE .ROUTE ; Start 12/22/16 at 11:56; Stop 12/22/16 at 11:57; Status DC Pantoprazole Sodium 40 mg 40 mg DAILYAC PO Last administered on 12/23/16 06:31 ; Start 12/22/16 at 09:30 Phenylephrine HCl 1 mg STK-MED ONCE IV ; Start 12/22/16 at 11:56; Stop 12/22/16 at 11:57; Status DC Polyethylene Glycol (miraLAX PACKET) 17 gm DAILY PO ; Start 12/22/16 at 09:00 Potassium Chloride (Klor-Con) 20 meq 1X ONCE PO Last administered on 09:30; Start 12/22/16 at 09:30; Stop 12/22/16 at 09:31; Status DC Potassium Chloride (Klor-Con) 20 meq DAILY PO Last administered on 12/22/16 09 :17; Start 12/22/16 at 09:00 Prochlorperazine Edisylate (Compazine) 5 mg PACU PRN PRN IV NAUSEA; Start 12/22 at 12:30; Stop 12/23/16 at 12:29 Propofol (Diprivan) 20 ml @ As Directed STK-MED ONCE IV ; Start 12/22/16 at 10: 47; Stop 12/22/16 at 10:48; Status DC Sevoflurane (Ultane) 30 ml STK-MED ONCE IH ; Start 12/22/16 at 12:00; Stop 12/22 at 12:01; Status DC Spironolactone (Aldactone) 12.5 mg DAILY PO Last administered on 12/22/16 13: 53; Start 12/22/16 at 09:00 Torsemide (Demadex) 100 mg DAILY PO Last administered on 12/22/16 13:54; Start 12/22/16 at 09:00 Vancomycin HCl 1 each 1X ONCE MC ; Start 12/23/16 at 14:30; Stop 12/23/16 at 14 :30; Status DC Vancomycin HCl/ Sodium Chloride (Iv Sodium Chloride 0.9% 500ml Bag) 500 ml @ 250 mls/hr Q24H IV ; Start 12/22/16 at 15:00; Stop 12/22/16 at 15:00; Status DC Assessment Assessment 1. abscess with cellulitis R foot/sepsis 2. DVT RLE 12/11/16 on Eliquis with h/o PE, DVT RLE & IVC filter 3. ARF with CKD IV ATN due to diuresis 4. chronic CHF systolic EF 30-35% not acute 5. DM II with neuropathy, PVD, chronic insulin use 6. anxiety/depression 7. HTN 8. hyperlipidemia 9. CAD with h/o AK and PCI with stent placed 10. GERD 11. chronic LBP 12. h/o hypercapnic/hypoxic respiratory failure with narcotics 13. COPD 14. h/o CVA 15. COPD with remote h/o tobacco abuse 16. n/v due to anxiety resolved 17. urine retention with temporary price, stopped at [facility] foot plantar diabetic ulcer non healing with osteomyelitis and h/o recent debridement to bone 06/26 s /p amputation R procedure 4th and 5th toes 07/16/16 18. h/o R foot plantar diabetic ulcer non healing with osteomyelitis ( debridement to bone 06/26 s/p amputation R procedure 4th and 5th toes 07/16/16) 20. morbid obesity 21. JENNA O2 3L NC at hs 22. moderate chronic PCL malnutrition PLAN: abscess/infected R foot Levaquin/flagyl/vanc dosed in ED Lactic acid 4.4 -(approximately 4L IVF administered) 12/22 2.4 ortho consult XR foot negative niels involvement ID consult-Meropenem IV/zyvox IV /diflucan IV surgery: ID and wound vac placement 12/22 weight bearing to transfer only per Dr. Robles ARF taking zaroxlyn 2.5mg bid since Wednesday + chronic torsemide 100mg daily 07/18/16 BUN 29 Cr 1.9 Admit BUN 40 12/23 41 Cr 2.4 2.6 K 4.4 3.9 Stop zaroxlyn Replace potassium 20 meq po x 1 12/22 No IVF at this time-going to surgery and 4L already given-eval in AM 12/22 consult renal CHF Admit weight 281.37 0 12/23 285.25 IO Daily weight BNP 1337-secondary to ARF, not acute CHF CXR clear DVT RLE Eliquis 5mg bid Hold since admit Restart this evening after surgery (per Dr. Robles)_ DM II FSBS/SSI Levemir 30u bid Novolog 15u tid ac SSI low intensity BS 179-302 Levemir 60u bid 12/22 Novolog 35u tid ac 12/22 h/o hypercapnic respiratory failure with narcotics Last admission Dilaudid 2-4mg IV q3hr prn post op-continue that this admission staff advised of risk with narcotic meds with respiratory status. DVT/GI prophylaxis Eliquis PPI For more details regarding further plans, please refer to the orders #22 gauge RAC, site red. She is a poor candidate for peripheral IV site. Will order midline. Plan Plan The patient was seen and examined by me. Chart reviewed and plan of care formulated. Discussed with, reviewed and agree with NETWORK SYSTEMS ENGINEER's notes, plan of care and orders with modifications as necessary. For more details regarding further plans, please refer to the orders. CHELE SINGH MD 12/23/16 0954: IM PROGRESS NOTES- Assessment Assessment The patient was seen and examined by me. Chart reviewed and plan of care formulated. Discussed with, reviewed and agree with NETWORK SYSTEMS ENGINEER's notes, plan of care and orders with modifications as necessary. For more details regarding further plans, please refer to the orders. YVONNE LAYNE APRN Dec 23, 2016 08:05 CHELE SINGH MD Dec 23, 2016 09:54
[2016-12-23] MEDS: INSULIN ASPART 300 UNITS/3 ML INSULN.PEN SQ SCH ×6 (09:05→17:58)
[2016-12-23] MEDS: INSULIN DETEMIR 300 UNITS/3 ML INSULN.PEN. SQ SCH ×2 (09:10→21:16)
--- NOTE | 2016-12-23 11:04 | PDOC2 ---
CONSULT Date of Consult Date of Consult DATE: 12/23/16 TIME: 11:00 Reason for Consult Reason for Consult: RENAL FAILURE Referring Physician Referring Physician: FRANCISCO Identification/Chief Complaint Chief Complaint RIGHT FOOT PAIN Source Source: Chart review, Patient History of Present Illness Reason for Visit: THIS IS A 46 YR OLD ADMITTED WITH RIGHT FOOT PAIN. SHE HAS HAD HX OF A RIGHT FOOT WOUND AND HAD UNDERGONE AMP OF THE 4TH AND 5TH TOE LAST MONTH. CURRENTLY PRESENTS WITH INFECTION. SHE IS ON ANTIBIOTICS AND HAS A WOUND VAC. CR IS 2.4. OLD RECORDS SHOWED CR IN THE RANGE OF 1.9 TO 2.4 AND MOST C/W STAGE 3 CKD DUE TO HTN AND DM RELATED END ORGAN DAMAGE Past Medical History Cardiovascular: CAD, CHF (systolic EF 30-30% mild MR tr TR ), HTN, CA, Hyperlipidemia, Other (recurring DVT RLE with h/o DVT/PE; PVD) Pulmonary: COPD, Other (JENNA with chronic O2 3L NC at hs. ) CENTRAL NERVOUS SYSTEM: CVA GI: GERD Heme/Onc: Other Hepatobiliary: Other (h/o GUY) Psych: Anxiety, Depression Musculoskeletal: Other Infectious disease: Other Renal/: Chronic renal insuff (CKD III ), Other Endocrine: Diabetes (Type II neuropathy with chronic insulin ) Past Surgical History Past Surgical History: Cholecystectomy, , Hernia Repair, Other (PCI/ stent coronary; IVC filter ) Family History Family History: Coronary Artery Disease, Diabetes, Hypertension Social History ALCOHOL: none Drugs: None Lives: with Family Current Problem List Problem List Problems Medical Problems: (1) DM (diabetes mellitus) Status: Acute (2) Sepsis Status: Acute (3) Wound infection Status: Acute Current Medications Current Medications Current Medications Vancomycin HCl 1 each 1 each PRN DAILY PRN MC SEE COMMENTS Last administered on 12/21/16 17:31; Start 12/21/16 at 14:15; Stop 12/22/16 at 08:35; Status DC Metronidazole (FLAGYL 500Mmg PREMIX) 100 ml @ 100 mls/hr Q8HRS IV Last administered on 12/22/16 06:12; Start 12/21/16 at 22:00; Stop 12/22/16 at 08:35 ; Status DC Levofloxacin/ Dextrose 1 each 1 each PRN DAILY PRN MC SEE COMMENTS; Start 12/21 at 14:15; Stop 12/22/16 at 08:35; Status DC Levofloxacin/ Dextrose 150 ml @ 100 mls/hr 1X ONCE IV Last administered on 14:30; Start 12/21/16 at 15:00; Stop 12/21/16 at 16:29; Status DC Vancomycin HCl 2 gm/Sodium Chloride 500 ml @ 250 mls/hr 1X ONCE IV Last administered on 12/21/16 15:00; Start 12/21/16 at 15:00; Stop 12/21/16 at 16:59 ; Status DC Sodium Chloride 3,960 ml @ 3,960 mls/hr Q1H IV Last administered on 12/21/16 14:30; Start 12/21/16 at 14:07; Stop 12/22/16 at 20:00; Status DC Metronidazole (FLAGYL 500Mmg PREMIX) 100 ml @ 100 mls/hr 1X ONCE IV Last administered on 12/21/16 16:15; Start 12/21/16 at 16:00; Stop 12/21/16 at 16:59 ; Status DC Morphine Sulfate 4 mg PRN Q15MIN PRN IV/SQ PAIN GREATER THAN 3/10 Last administered on 12/21/16 15:22; Start 12/21/16 at 14:15; Stop 12/22/16 at 08:10 ; Status DC Ondansetron HCl (Zofran) 4 mg 1X ONCE IV Last administered on 12/21/16 14:29 ; Start 12/21/16 at 14:15; Stop 12/21/16 at 14:16; Status DC Fentanyl Citrate (Fentanyl 2ml Vial) 50 mcg PRN Q15MIN PRN IV PAIN GREATER THAN 3/10 Last administered on 12/21/16 16:12; Start 12/21/16 at 15:45; Stop at 19:47; Status DC Ondansetron HCl (Zofran) 4 mg PRN Q8HRS PRN IV NAUSEA/VOMITING; Start 12/21/16 at 16:15; Stop 12/22/16 at 16:14; Status DC Fentanyl Citrate (Fentanyl 2ml Vial) 50 mcg PRN Q1HR PRN IV PAIN; Start at 16:15; Stop 12/21/16 at 19:47; Status DC Acetaminophen (Tylenol) 650 mg PRN Q4HRS PRN PO FEVER; Start 12/21/16 at 16:15 ; Stop 12/22/16 at 16:14; Status DC Albuterol/ Ipratropium (Duoneb) 3 ml RTQID NEB Last administered on 12/22/16 15:32; Start 12/21/16 at 20:00; Stop 12/22/16 at 19:59; Status DC Insulin Aspart (Novolog) 0-5 UNITS TIDWMEALS SQ Last administered on 12/23/16 09:08; Start 12/21/16 at 17:00 Dextrose 12.5 gm 12.5 gm PRN Q15MIN PRN IV SEE COMMENTS; Start 12/21/16 at 16: 15 Levofloxacin/ Dextrose 150 ml @ 100 mls/hr Q48H IV ; Start 12/23/16 at 15:00; Stop 12/23/16 at 15:00; Status DC Vancomycin HCl/ Sodium Chloride (Iv Sodium Chloride 0.9% 500ml Bag) 500 ml @ 250 mls/hr Q24H IV ; Start 12/22/16 at 15:00; Stop 12/22/16 at 15:00; Status DC Vancomycin HCl 1 each 1X ONCE MC ; Start 12/23/16 at 14:30; Stop 12/23/16 at 14 :30; Status DC Fentanyl Citrate (Fentanyl 2ml Vial) 25 mcg PRN Q3HRS PRN IV PAIN; Start at 19:45; Stop 12/22/16 at 08:17; Status DC Fentanyl Citrate (Fentanyl 2ml Vial) 50 mcg PRN Q3HRS PRN IV PAIN Last administered on 12/22/16 06:59; Start 12/21/16 at 20:00; Stop 12/22/16 at 08:17 ; Status DC Apixaban (Eliquis) 10 mg BID PO ; Start 12/21/16 at 22:45; Stop 12/21/16 at 23: 44; Status DC Ascorbic Acid (Vitamin C) 500 mg DAILY PO Last administered on 12/23/16 07:53 ; Start 12/22/16 at 09:00 Aspirin (Ecotrin) 81 mg DAILY PO Last administered on 12/23/16 08:02; Start at 09:00 Atorvastatin Calcium (Lipitor) 40 mg HS PO Last administered on 12/22/16 22:13 ; Start 12/21/16 at 22:45 Bisacodyl (Dulcolax Tab) 10 mg PRN DAILY PRN PO CONSTIPATION; Start 12/21/16 at 22:30 Docusate Sodium (Colace) 100 mg PRN DAILY PRN PO CONS; Start 12/21/16 at 22:30 Insulin Aspart (Novolog) Give as needed PRN BFRMEAL SQ ; Start 12/21/16 at 22: 30; Stop 12/22/16 at 08:01; Status DC Insulin Aspart (Novolog) 15 units TIDWMEALS SQ Last administered on 12/22/16 12:00; Start 12/22/16 at 08:00; Stop 12/22/16 at 16:43; Status DC Insulin Detemir (Levemir) 30 units BID SQ Last administered on 12/22/16 09:00 ; Start 12/21/16 at 23:00; Stop 12/22/16 at 16:43; Status DC Magnesium Hydroxide (Milk Of Magnesia) 2,400 mg PRN DAILY PRN PO CONSTIPATION; Start 12/21/16 at 22:30 Polyethylene Glycol (miraLAX PACKET) 17 gm DAILY PO Last administered on 08:03; Start 12/22/16 at 09:00 Potassium Chloride (Klor-Con) 20 meq DAILY PO Last administered on 12/23/16 08 :03; Start 12/22/16 at 09:00 Torsemide (Demadex) 100 mg DAILY PO Last administered on 12/23/16 08:04; Start 12/22/16 at 09:00 Spironolactone (Aldactone) 12.5 mg DAILY PO Last administered on 12/23/16 07: 53; Start 12/22/16 at 09:00 Metolazone (Zaroxolyn) 2.5 mg PRN DAILY PRN PO SEE COMMENTS; Start 12/21/16 at 23:00; Stop 12/23/16 at 07:47; Status DC Montelukast Sodium (Singulair) 10 mg QHS PO Last administered on 12/22/16 22: 13; Start 12/21/16 at 23:30 Famotidine (Pepcid) 40 mg QHS PO Last administered on 3/13/17at 23:49; Start at 23:30; Stop 12/22/16 at 09:11; Status DC Carvedilol (Coreg) 6.25 mg BIDWMEALS PO ; Start 12/22/16 at 23:30; Stop at 23:30; Status DC Apixaban (Eliquis) 10 mg DAILY PO ; Start 12/22/16 at 09:00; Stop 12/22/16 at 09 :00; Status DC Carvedilol (Coreg) 6.25 mg BIDWMEALS PO Last administered on 12/23/16 08:04; Start 12/21/16 at 23:55 Apixaban (Eliquis) 5 mg BID PO Last administered on 12/23/16 08:03; Start at 09:00 Info (Anti-Coagulation Monitoring By Pharmacy) 1 each PRN DAILY PRN MC SEE COMMENTS Last administered on 12/22/16 08:02; Start 12/22/16 at 08:00 Hydromorphone HCl (Dilaudid) 2 mg PRN Q4HRS PRN IV PAIN Last administered on 08:02; Start 12/22/16 at 08:15 Hydromorphone HCl 1 mg 1 mg PRN Q4HRS PRN IV PAIN Last administered on 09:17; Start 12/22/16 at 08:15 Meropenem 500 mg/ Sodium Chloride 50 ml @ 100 mls/hr Q6HRS IV Last administered on 12/23/16 05:54; Start 12/22/16 at 09:00 Linezolid 300 ml @ 300 mls/hr Q12HR IV Last administered on 12/23/16 09:04; Start 12/22/16 at 09:00 Fluconazole/ Sodium Chloride (Diflucan 100mg/ 50ml Premix) 50 ml @ 100 mls/hr Q24H IV Last administered on 12/22/16 11:26; Start 12/22/16 at 10:00 Potassium Chloride (Klor-Con) 20 meq 1X ONCE PO Last administered on 09:30; Start 12/22/16 at 09:30; Stop 12/22/16 at 09:31; Status DC Pantoprazole Sodium 40 mg 40 mg DAILYAC PO Last administered on 12/23/16 06:31 ; Start 12/22/16 at 09:30 Propofol (Diprivan) 20 ml @ As Directed STK-MED ONCE IV ; Start 12/22/16 at 10: 47; Stop 12/22/16 at 10:48; Status DC Lidocaine HCl 100 mg STK-MED ONCE .ROUTE ; Start 12/22/16 at 10:47; Stop at 10:48; Status DC Ondansetron HCl (Zofran) 4 mg STK-MED ONCE .ROUTE ; Start 12/22/16 at 11:56; Stop 12/22/16 at 11:57; Status DC Phenylephrine HCl 1 mg STK-MED ONCE IV ; Start 12/22/16 at 11:56; Stop 12/22/16 at 11:57; Status DC Dexamethasone Sodium Phosphate (Decadron) 20 mg STK-MED ONCE .ROUTE ; Start at 11:59; Stop 12/22/16 at 12:00; Status DC Sevoflurane (Ultane) 30 ml STK-MED ONCE IH ; Start 12/22/16 at 12:00; Stop 12/22 at 12:01; Status DC Fentanyl Citrate (Fentanyl 2ml Vial) 25 mcg PRN Q5MIN PRN IV MILD PAIN Last administered on 12/22/16 12:45; Start 12/22/16 at 12:30; Stop 12/23/16 at 07:47 ; Status DC Fentanyl Citrate 50 mcg 50 mcg PRN Q5MIN PRN IV MODERATE PAIN Last administered on 12/22/16 13:20; Start 12/22/16 at 12:30; Stop 12/23/16 at 07:47 ; Status DC Lactated Ringer's (Iv Lactated Ringers) 1,000 ml @ 0 mls/hr Q0M IV ; Start at 12:18; Stop 12/23/16 at 00:17; Status DC Lidocaine HCl 2 ml 1X PRN PRN ID IV START; Start 12/22/16 at 12:30; Stop at 12:29 Prochlorperazine Edisylate (Compazine) 5 mg PACU PRN PRN IV NAUSEA; Start 12/22 at 12:30; Stop 12/23/16 at 12:29 Insulin Aspart (Novolog) 35 units TIDWMEALS SQ Last administered on 12/23/16 09:05; Start 12/22/16 at 17:00 Insulin Detemir (Levemir) 60 units BID SQ Last administered on 12/23/16 09:10 ; Start 12/22/16 at 21:00 Albuterol/ Ipratropium (Duoneb) 3 ml RTQID NEB Last administered on 12/23/16 07:32; Start 12/22/16 at 21:45 Acetaminophen (Tylenol) 650 mg PRN Q6HRS PRN PO MILD PAIN / TEMP; Start at 07:45 Active Scripts Active FENTANYL 50mcg/hr (Fentanyl) 1 Each Patch.td72 1 Patch TD Q72H Eliquis (Apixaban) 5 Mg Tablet 10 Mg PO BID Take 10mg twice daily for 7 days, then take 5mg twice daily. Novolog Flexpen (Insulin Aspart) 100 Unit/1 Ml Insuln.pen 0-8 Unit SQ TID AC Klor-Con M20 (Potassium Chloride) 20 Meq Tab.er.prt 20 Meq PO DAILY Zofran Odt (Ondansetron) 4 Mg Tab.rapdis 1 Tab SL PRN Q6HRS PRN Miralax (Polyethylene Glycol 3350) 17 Gm Powd.pack 17 Gm PO DAILY Milk Of Magnesia (Magnesium Hydroxide) 400 Mg/5 Ml Oral.susp 2,400 Mg PO PRN DAILY PRN Levemir Flextouch (Insulin Detemir) 100 Unit/1 Ml Insuln.pen 30 Units SQ BID Novolog Flexpen (Insulin Aspart) 100 Unit/1 Ml Insuln.pen 15 Units SQ TIDWMEALS FENTANYL 50mcg/hr (Fentanyl) 1 Each Patch.td72 1 Patch TD Q3DAYS Bisacodyl 5 Mg Tablet.dr 10 Mg PO PRN DAILY PRN Duoneb 0.5-3(2.5) Mg/3 Ml (Albuterol/Ipratropium) 3 Ml Ampul.neb 3 Ml NEB RTQID Reported Docusate Sodium 100 Mg Capsule 100 Mg PO PRN DAILY PRN Aspir 81 (Aspirin) 81 Mg Tablet.dr 81 Mg PO DAILY Nitrostat (Nitroglycerin) 0.4 Mg Tab.subl 0.4 Mg SL PRN Q5MIN PRN Vitamin C (Ascorbic Acid) 500 Mg Tablet 500 Mg PO DAILY Atorvastatin Calcium 40 Mg Tablet 40 Mg PO HS Omeprazole 20 Mg Capsule.dr 20 Mg PO DAILY Allergies Allergies: Coded Allergies: Sulfa (Sulfonamide Antibiotics) (Verified Allergy, Severe, causes throat to swell, 07/15/16) amoxicillin (Verified Allergy, Severe, causes swelling of throat, 07/15/16) clarithromycin (Verified Allergy, Severe, causes throat to swell, 07/15/16) codeine (Verified Allergy, Severe, "closed up my throat and itching", 07/15) tolerates percocet hydrocodone (Verified Allergy, Severe, "closes up my throat and itching", 03/28/15) tolerates percocet Penicillins (Verified Allergy, Intermediate, causes swelling of throat, ) oxycodone (Verified Allergy, Intermediate, 06/08/16) tramadol (Verified Allergy, Intermediate, Nausea and Vomiting, 07/01/16) ROS General: YES: Appetite, Fatigue, Malaise PSYCHOLOGICAL ROS: YES: Anxiety Eyes: Yes Decreased vision HEENT: YES: Heacaches Respiratory: YES: Cough Cardiovascular: yes Edema Gastrointestinal: Yes Constipation Genitourinary: YES Other (NOCTURIA) Musculoskeletal: Yes Joint Pain, Yes Muscular Weakness Neurological: Yes Weakness Skin: Yes Dry Skin Physical Exam General: Alert, Oriented X3, Cooperative, No acute distress HEENT: Atraumatic, EOMI Lungs: Clear to auscultation, Normal air movement Heart: Regular rate, Normal S1 Abdomen: Normal bowel sounds, No tenderness Extremities: No clubbing, Other (RIGHT FOOT DORSUM REDNESS AND WOUND VAC IN PLACE) Neuro: Normal speech Psych/Mental Status: Mental status NL, Mood NL MUSCULOSKELETAL: No deformity Vitals VITALS Vital Signs Date Time Temp Pulse Resp B/P Pulse Ox O2 Delivery O2 Flow Rate FiO2 12/23/16 08:32 18 12/23/16 08:04 107 111/69 12/23/16 08:02 Nasal Cannula 2.0 12/23/16 07:33 96 12/23/16 07:00 97.6 97.6 Labs Labs Laboratory Tests Test 12/21/16 12:26 12/21/16 13:53 12/21/16 15:10 12/21/16 15:59 Glucose (Fingerstick) 397mg/dL (70-99) 278mg/dL (70-99) White Blood Count 8.8x10^3/uL (4.0-11.0) Red Blood Count 4.76x10^6/uL (3.50-5.40) Hemoglobin 13.5g/dL (12.0-15.5) Hematocrit 41.9% (36.0-47.0) Mean Corpuscular Volume 88fL (79-100) Mean Corpuscular Hemoglobin 28pg (25-35) Mean Corpuscular Hemoglobin Concent 32g/dL (31-37) Red Cell Distribution Width 18.7% (11.5-14.5) Platelet Count 265x10^3/uL (140-400) Neutrophils (%) (Auto) 75% (31-73) Lymphocytes (%) (Auto) 17% (24-48) Monocytes (%) (Auto) 7% (0-9) Eosinophils (%) (Auto) 1% (0-3) Basophils (%) (Auto) 1% (0-3) Neutrophils # (Auto) 6.6x10^3uL (1.8-7.7) Lymphocytes # (Auto) 1.5x10^3/uL (1.0-4.8) Monocytes # (Auto) 0.6x10^3/uL (0.0-1.1) Eosinophils # (Auto) 0.1x10^3/uL (0.0-0.7) Basophils # (Auto) 0.1x10^3/uL (0.0-0.2) Prothrombin Time 15.0SEC (11.7-14.0) Prothromb Time International Ratio 1.3 (0.8-1.1) Activated Partial Thromboplast Time 30SEC (24-38) Sodium Level 141mmol/L (136-145) Potassium Level 4.4mmol/L (3.5-5.1) Chloride Level 99mmol/L (98-107) Carbon Dioxide Level 32mmol/L (21-32) Anion Gap 10 (6-14) Blood Urea Nitrogen 40mg/dL (7-20) Creatinine 2.4mg/dL (0.6-1.0) Estimated GFR (Cockcroft-Gault) 21.6 BUN/Creatinine Ratio 17 (6-20) Glucose Level 375mg/dL (70-99) Lactic Acid Level 4.4mmol/L (0.4-2.0) 4.2mmol/L (0.4-2.0) Calcium Level 9.2mg/dL (8.5-10.1) Total Bilirubin 0.6mg/dL (0.2-1.0) Aspartate Amino Transf (AST/SGOT) 23U/L (15-37) Alanine Aminotransferase (ALT/SGPT) 18U/L (14-59) Alkaline Phosphatase 125U/L (46-116) [id number]-Type Natriuretic Peptide 1337pg/mL (0-124) Total Protein 6.6g/dL (6.4-8.2) Albumin 2.9g/dL (3.4-5.0) Albumin/Globulin Ratio 0.8 (1.0-1.7) Test 12/21/16 19:00 12/21/16 23:53 12/22/16 04:15 12/22/16 07:49 Lactic Acid Level 2.4mmol/L (0.4-2.0) Glucose (Fingerstick) 161mg/dL (70-99) 140mg/dL (70-99) White Blood Count 9.0x10^3/uL (4.0-11.0) Red Blood Count 4.47x10^6/uL (3.50-5.40) Hemoglobin 12.6g/dL (12.0-15.5) Hematocrit 39.2% (36.0-47.0) Mean Corpuscular Volume 88fL (79-100) Mean Corpuscular Hemoglobin 28pg (25-35) Mean Corpuscular Hemoglobin Concent 32g/dL (31-37) Red Cell Distribution Width 18.2% (11.5-14.5) Platelet Count 240x10^3/uL (140-400) Neutrophils (%) (Auto) 72% (31-73) Lymphocytes (%) (Auto) 18% (24-48) Monocytes (%) (Auto) 7% (0-9) Eosinophils (%) (Auto) 2% (0-3) Basophils (%) (Auto) 1% (0-3) Neutrophils # (Auto) 6.4x10^3uL (1.8-7.7) Lymphocytes # (Auto) 1.7x10^3/uL (1.0-4.8) Monocytes # (Auto) 0.6x10^3/uL (0.0-1.1) Eosinophils # (Auto) 0.2x10^3/uL (0.0-0.7) Basophils # (Auto) 0.1x10^3/uL (0.0-0.2) Sodium Level 142mmol/L (136-145) Potassium Level 3.3mmol/L (3.5-5.1) Chloride Level 100mmol/L (98-107) Carbon Dioxide Level 33mmol/L (21-32) Anion Gap 9 (6-14) Blood Urea Nitrogen 39mg/dL (7-20) Creatinine 2.3mg/dL (0.6-1.0) Estimated GFR (Cockcroft-Gault) 22.7 Glucose Level 150mg/dL (70-99) Calcium Level 8.9mg/dL (8.5-10.1) Magnesium Level 1.8mg/dL (1.8-2.4) Test 12/22/16 10:56 12/22/16 12:31 12/22/16 14:04 12/22/16 16:51 Glucose (Fingerstick) 153mg/dL (70-99) 179mg/dL (70-99) 245mg/dL (70-99) 302mg/dL (70-99) Test 12/22/16 21:22 12/23/16 04:54 12/23/16 08:04 Glucose (Fingerstick) 265mg/dL (70-99) 226mg/dL (70-99) White Blood Count 10.5x10^3/uL (4.0-11.0) Red Blood Count 4.72x10^6/uL (3.50-5.40) Hemoglobin 13.4g/dL (12.0-15.5) Hematocrit 40.6% (36.0-47.0) Mean Corpuscular Volume 86fL (79-100) Mean Corpuscular Hemoglobin 28pg (25-35) Mean Corpuscular Hemoglobin Concent 33g/dL (31-37) Red Cell Distribution Width 17.9% (11.5-14.5) Platelet Count 266x10^3/uL (140-400) Neutrophils (%) (Auto) 82% (31-73) Lymphocytes (%) (Auto) 13% (24-48) Monocytes (%) (Auto) 4% (0-9) Eosinophils (%) (Auto) 0% (0-3) Basophils (%) (Auto) 1% (0-3) Neutrophils # (Auto) 8.6x10^3uL (1.8-7.7) Lymphocytes # (Auto) 1.3x10^3/uL (1.0-4.8) Monocytes # (Auto) 0.5x10^3/uL (0.0-1.1) Eosinophils # (Auto) 0.0x10^3/uL (0.0-0.7) Basophils # (Auto) 0.1x10^3/uL (0.0-0.2) Sodium Level 139mmol/L (136-145) Potassium Level 3.9mmol/L (3.5-5.1) Chloride Level 97mmol/L (98-107) Carbon Dioxide Level 33mmol/L (21-32) Anion Gap 9 (6-14) Blood Urea Nitrogen 41mg/dL (7-20) Creatinine 2.6mg/dL (0.6-1.0) Estimated GFR (Cockcroft-Gault) 19.7 BUN/Creatinine Ratio 16 (6-20) Glucose Level 267mg/dL (70-99) Calcium Level 8.8mg/dL (8.5-10.1) Total Bilirubin 0.5mg/dL (0.2-1.0) Aspartate Amino Transf (AST/SGOT) 16U/L (15-37) Alanine Aminotransferase (ALT/SGPT) 15U/L (14-59) Alkaline Phosphatase 110U/L (46-116) Total Protein 6.8g/dL (6.4-8.2) Albumin 2.7g/dL (3.4-5.0) Albumin/Globulin Ratio 0.7 (1.0-1.7) Laboratory Tests Test 12/22/16 12:31 12/22/16 14:04 12/22/16 16:51 12/22/16 21:22 Glucose (Fingerstick) 179mg/dL (70-99) 245mg/dL (70-99) 302mg/dL (70-99) 265mg/dL (70-99) Test 12/23/16 04:54 12/23/16 08:04 White Blood Count 10.5x10^3/uL (4.0-11.0) Red Blood Count 4.72x10^6/uL (3.50-5.40) Hemoglobin 13.4g/dL (12.0-15.5) Hematocrit 40.6% (36.0-47.0) Mean Corpuscular Volume 86fL (79-100) Mean Corpuscular Hemoglobin 28pg (25-35) Mean Corpuscular Hemoglobin Concent 33g/dL (31-37) Red Cell Distribution Width 17.9% (11.5-14.5) Platelet Count 266x10^3/uL (140-400) Neutrophils (%) (Auto) 82% (31-73) Lymphocytes (%) (Auto) 13% (24-48) Monocytes (%) (Auto) 4% (0-9) Eosinophils (%) (Auto) 0% (0-3) Basophils (%) (Auto) 1% (0-3) Neutrophils # (Auto) 8.6x10^3uL (1.8-7.7) Lymphocytes # (Auto) 1.3x10^3/uL (1.0-4.8) Monocytes # (Auto) 0.5x10^3/uL (0.0-1.1) Eosinophils # (Auto) 0.0x10^3/uL (0.0-0.7) Basophils # (Auto) 0.1x10^3/uL (0.0-0.2) Sodium Level 139mmol/L (136-145) Potassium Level 3.9mmol/L (3.5-5.1) Chloride Level 97mmol/L (98-107) Carbon Dioxide Level 33mmol/L (21-32) Anion Gap 9 (6-14) Blood Urea Nitrogen 41mg/dL (7-20) Creatinine 2.6mg/dL (0.6-1.0) Estimated GFR (Cockcroft-Gault) 19.7 BUN/Creatinine Ratio 16 (6-20) Glucose Level 267mg/dL (70-99) Calcium Level 8.8mg/dL (8.5-10.1) Total Bilirubin 0.5mg/dL (0.2-1.0) Aspartate Amino Transf (AST/SGOT) 16U/L (15-37) Alanine Aminotransferase (ALT/SGPT) 15U/L (14-59) Alkaline Phosphatase 110U/L (46-116) Total Protein 6.8g/dL (6.4-8.2) Albumin 2.7g/dL (3.4-5.0) Albumin/Globulin Ratio 0.7 (1.0-1.7) Glucose (Fingerstick) 226mg/dL (70-99) Assessment/Plan Assessment/Plan IMP RIGHT FOOT WOUND ANEMIA DM II HTN CKD STAGE 3-STABLE WITH CR IN THE 1.9 TO 2.4 RANGE PLAN ANTIBIOTICS CONT HOME MEDS WILL FOLLOW SARA RUIZ MD Dec 23, 2016 11:04
[2016-12-23] MEDS ORDERED: LIDOCAINE 1% / SOD BICARB 8.4% 20 ML VIAL. IJ ONE ×2 (15:27→16:00)
[2016-12-23 15:30] VITALS: BP 92/61
--- NOTE | 2016-12-23 16:25 | PDOC ---
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 No apparent complication. Disposition Disposition From IR return to 210. OK to use Power Picc. Full report to follow. DAYSI ATNG MD Dec 23, 2016 16:25
--- NOTE | 2016-12-23 16:43 | RAD ---
Ultrasound and fluoro guided power PICC placement Indication: 46-year-old diabetic female with right foot infection. She has poor peripheral IV access. Image guided PICC insertion has been requested for IV antibiotics. Fluoro time: 1.4 minutes Kerma-Area Product: 5 Gycm2 Anesthesia: Local Sterility: All elements of maximal sterile barrier technique were utilized, including cap, mask, sterile gown, sterile gloves, large sterile sheet, appropriate hand hygiene, and 2% chlorhexidine for cutaneous antisepsis Procedure: Informed consent was obtained from the patient. She was placed supine on the angiography table. Preliminary ultrasound examination of right upper arm revealed wide patency of right cephalic vein, which was documented with a hard copy ultrasound image. Right upper arm was then prepped and draped in the usual sterile fashion, utilizing all elements of maximal sterile barrier technique, as described above. Using aseptic technique, local anesthesia, direct ultrasound guidance, and the micropuncture system, successful percutaneous entry was achieved into right cephalic vein at the level of distal humerus. A 5 [place] dual lumen power PICC was trimmed to 42 cm in length, was inserted through a 5 [place] peel-away sheath, and was easily advanced centrally under fluoroscopic control. Tip of the power PICC was positioned at upper right atrium. This was documented with a single fluoroscopic spot image. The PICC was then demonstrated to flush and aspirate normally, and was secured at the skin exit site utilizing suture and sterile dressing. The patient tolerated the procedure well without apparent complication. Impression: Successful, uneventful ultrasound and fluoro guided placement of right cephalic vein 5 [place] dual-lumen 42 cm power PICC, as described.
[2016-12-23] MEDS: FENTANYL 50MCG/HR PATCH. TD SCH (17:12)
[2016-12-23] MEDS: FLUCONAZOLE 100MG/50ML PREMIX 50 ML IV SCH (17:47)
[2016-12-23 19:00] VITALS: BP 91/50
[2016-12-23] MEDS: MONTELUKAST SODIUM 10 MG TABLET. PO SCH (21:16)
[2016-12-23] MEDS: ATORVASTATIN CALCIUM 40 MG TABLET. PO SCH (21:16)
[2016-12-23 23:40] VITALS: BP 104/65
[2016-12-24] MEDS: ACETAMINOPHEN 325 MG TABLET. PO PRN ×3 (00:34→15:39)
[2016-12-24 03:05] VITALS: BP 94/62
[2016-12-24 05:04] LABS: BASO # 0.1 x10^3/uL (0.0-0.2); BASO % 1 % (0-3); EOS % 3 % (0-3); HEMATOCRIT 39.2 % (36.0-47.0); HEMOGLOBIN 12.6 g/dL (12.0-15.5); LYMPH # 1.7 x10^3/uL (1.0-4.8); LYMPH % 17 % (24-48); MEAN CORPUSCULAR HEMOGLOBIN 28 pg (25-35); MEAN CORPUSCULAR HGB CONC 32 g/dL (31-37); MEAN CORPUSCULAR VOLUME 88 fL (79-100); MONO % 7 % (0-9); NEUT % 73 % (31-73); PLATELET COUNT 219 x10^3/uL (140-400); RED BLOOD COUNT 4.46 x10^6/uL (3.50-5.40); RED CELL DISTRIBUTION WIDTH 18.1 % (11.5-14.5); WHITE BLOOD COUNT 10.3 x10^3/uL (4.0-11.0)
[2016-12-24 05:18] LABS: ALBUMIN 2.7 g/dL (3.4-5.0); ALBUMIN/GLOBULIN RATIO 0.7 (1.0-1.7); CREATININE 2.7 mg/dL (0.6-1.0); GFR 18.9; POTASSIUM 3.4 mmol/L (3.5-5.1); TOTAL BILIRUBIN 0.5 mg/dL (0.2-1.0); TOTAL PROTEIN 6.5 g/dL (6.4-8.2)
[2016-12-24] MEDS: PANTOPRAZOLE 40 MG TABLET. PO SCH (06:09)
[2016-12-24] MEDS: MEROPENEM 500 MG in IV NORMAL SALINE 50ML 50 ML IV SCH ×3 (06:09→18:05)
--- NOTE | 2016-12-24 06:53 | PDOC ---
[employer] 12/24/16 0652: IM PROGRESS NOTES- Subjective Subjective no chills, dyspnea Objective Objective alert, no distress Vitals Vital Signs Date Time Temp Pulse Resp B/P Pulse Ox O2 Delivery O2 Flow Rate FiO2 12/24/16 03:05 98.0 78 16 94/62 93 Nasal Cannula 2.0 98.0 Input & Output Intake and Output 12/24/16 07:00 Intake Total 1500 ml Output Total 2600 ml Balance -1100 ml Intake Oral 1200 ml IV Total 300 ml Output Urine Total 2600 ml Physical Exam Physical Exam General appearance - alert,well appearing, and in no distress Mental Status - alert, oriented to person, place, and time, affect appropriate to mood Head - normal Chest - clear to auscultation, no wheezes, rales or rhonchi, symmetric air entry Heart - S1 and S2 normal Abdomen - soft, nontender, nondistended, BS+ Neurological - no acute focal neurological deficits noted Musculoskeletal - no muscular tenderness noted Extremities - ++ swelling RLE, wound vac R foot. IV RAC slight red. Skin - warm and dry Labs Laboratory Tests Test 12/22/16 07:49 12/22/16 10:56 12/22/16 12:31 12/22/16 14:04 Glucose (Fingerstick) 140mg/dL (70-99) 153mg/dL (70-99) 179mg/dL (70-99) 245mg/dL (70-99) Test 12/22/16 16:51 12/22/16 21:22 12/23/16 04:54 12/23/16 08:04 Glucose (Fingerstick) 302mg/dL (70-99) 265mg/dL (70-99) 226mg/dL (70-99) White Blood Count 10.5x10^3/uL (4.0-11.0) Red Blood Count 4.72x10^6/uL (3.50-5.40) Hemoglobin 13.4g/dL (12.0-15.5) Hematocrit 40.6% (36.0-47.0) Mean Corpuscular Volume 86fL (79-100) Mean Corpuscular Hemoglobin 28pg (25-35) Mean Corpuscular Hemoglobin Concent 33g/dL (31-37) Red Cell Distribution Width 17.9% (11.5-14.5) Platelet Count 266x10^3/uL (140-400) Neutrophils (%) (Auto) 82% (31-73) Lymphocytes (%) (Auto) 13% (24-48) Monocytes (%) (Auto) 4% (0-9) Eosinophils (%) (Auto) 0% (0-3) Basophils (%) (Auto) 1% (0-3) Neutrophils # (Auto) 8.6x10^3uL (1.8-7.7) Lymphocytes # (Auto) 1.3x10^3/uL (1.0-4.8) Monocytes # (Auto) 0.5x10^3/uL (0.0-1.1) Eosinophils # (Auto) 0.0x10^3/uL (0.0-0.7) Basophils # (Auto) 0.1x10^3/uL (0.0-0.2) Sodium Level 139mmol/L (136-145) Potassium Level 3.9mmol/L (3.5-5.1) Chloride Level 97mmol/L (98-107) Carbon Dioxide Level 33mmol/L (21-32) Anion Gap 9 (6-14) Blood Urea Nitrogen 41mg/dL (7-20) Creatinine 2.6mg/dL (0.6-1.0) Estimated GFR (Cockcroft-Gault) 19.7 BUN/Creatinine Ratio 16 (6-20) Glucose Level 267mg/dL (70-99) Calcium Level 8.8mg/dL (8.5-10.1) Total Bilirubin 0.5mg/dL (0.2-1.0) Aspartate Amino Transf (AST/SGOT) 16U/L (15-37) Alanine Aminotransferase (ALT/SGPT) 15U/L (14-59) Alkaline Phosphatase 110U/L (46-116) Total Protein 6.8g/dL (6.4-8.2) Albumin 2.7g/dL (3.4-5.0) Albumin/Globulin Ratio 0.7 (1.0-1.7) Test 12/23/16 13:33 12/23/16 16:51 12/23/16 21:02 12/23/16 23:58 Glucose (Fingerstick) 188mg/dL (70-99) 137mg/dL (70-99) 97mg/dL (70-99) 80mg/dL (70-99) Test 12/24/16 04:05 White Blood Count 10.3x10^3/uL (4.0-11.0) Red Blood Count 4.46x10^6/uL (3.50-5.40) Hemoglobin 12.6g/dL (12.0-15.5) Hematocrit 39.2% (36.0-47.0) Mean Corpuscular Volume 88fL (79-100) Mean Corpuscular Hemoglobin 28pg (25-35) Mean Corpuscular Hemoglobin Concent 32g/dL (31-37) Red Cell Distribution Width 18.1% (11.5-14.5) Platelet Count 219x10^3/uL (140-400) Neutrophils (%) (Auto) 73% (31-73) Lymphocytes (%) (Auto) 17% (24-48) Monocytes (%) (Auto) 7% (0-9) Eosinophils (%) (Auto) 3% (0-3) Basophils (%) (Auto) 1% (0-3) Neutrophils # (Auto) 7.5x10^3uL (1.8-7.7) Lymphocytes # (Auto) 1.7x10^3/uL (1.0-4.8) Monocytes # (Auto) 0.7x10^3/uL (0.0-1.1) Eosinophils # (Auto) 0.3x10^3/uL (0.0-0.7) Basophils # (Auto) 0.1x10^3/uL (0.0-0.2) Sodium Level 144mmol/L (136-145) Potassium Level 3.4mmol/L (3.5-5.1) Chloride Level 100mmol/L (98-107) Carbon Dioxide Level 34mmol/L (21-32) Anion Gap 10 (6-14) Blood Urea Nitrogen 49mg/dL (7-20) Creatinine 2.7mg/dL (0.6-1.0) Estimated GFR (Cockcroft-Gault) 18.9 BUN/Creatinine Ratio 18 (6-20) Glucose Level 78mg/dL (70-99) Calcium Level 9.0mg/dL (8.5-10.1) Total Bilirubin 0.5mg/dL (0.2-1.0) Aspartate Amino Transf (AST/SGOT) 18U/L (15-37) Alanine Aminotransferase (ALT/SGPT) 18U/L (14-59) Alkaline Phosphatase 101U/L (46-116) Total Protein 6.5g/dL (6.4-8.2) Albumin 2.7g/dL (3.4-5.0) Albumin/Globulin Ratio 0.7 (1.0-1.7) Laboratory Tests Test 12/23/16 08:04 12/23/16 13:33 12/23/16 16:51 12/23/16 21:02 Glucose (Fingerstick) 226mg/dL (70-99) 188mg/dL (70-99) 137mg/dL (70-99) 97mg/dL (70-99) Test 12/23/16 23:58 12/24/16 04:05 Glucose (Fingerstick) 80mg/dL (70-99) White Blood Count 10.3x10^3/uL (4.0-11.0) Red Blood Count 4.46x10^6/uL (3.50-5.40) Hemoglobin 12.6g/dL (12.0-15.5) Hematocrit 39.2% (36.0-47.0) Mean Corpuscular Volume 88fL (79-100) Mean Corpuscular Hemoglobin 28pg (25-35) Mean Corpuscular Hemoglobin Concent 32g/dL (31-37) Red Cell Distribution Width 18.1% (11.5-14.5) Platelet Count 219x10^3/uL (140-400) Neutrophils (%) (Auto) 73% (31-73) Lymphocytes (%) (Auto) 17% (24-48) Monocytes (%) (Auto) 7% (0-9) Eosinophils (%) (Auto) 3% (0-3) Basophils (%) (Auto) 1% (0-3) Neutrophils # (Auto) 7.5x10^3uL (1.8-7.7) Lymphocytes # (Auto) 1.7x10^3/uL (1.0-4.8) Monocytes # (Auto) 0.7x10^3/uL (0.0-1.1) Eosinophils # (Auto) 0.3x10^3/uL (0.0-0.7) Basophils # (Auto) 0.1x10^3/uL (0.0-0.2) Sodium Level 144mmol/L (136-145) Potassium Level 3.4mmol/L (3.5-5.1) Chloride Level 100mmol/L (98-107) Carbon Dioxide Level 34mmol/L (21-32) Anion Gap 10 (6-14) Blood Urea Nitrogen 49mg/dL (7-20) Creatinine 2.7mg/dL (0.6-1.0) Estimated GFR (Cockcroft-Gault) 18.9 BUN/Creatinine Ratio 18 (6-20) Glucose Level 78mg/dL (70-99) Calcium Level 9.0mg/dL (8.5-10.1) Total Bilirubin 0.5mg/dL (0.2-1.0) Aspartate Amino Transf (AST/SGOT) 18U/L (15-37) Alanine Aminotransferase (ALT/SGPT) 18U/L (14-59) Alkaline Phosphatase 101U/L (46-116) Total Protein 6.5g/dL (6.4-8.2) Albumin 2.7g/dL (3.4-5.0) Albumin/Globulin Ratio 0.7 (1.0-1.7) Meds Current Medications Acetaminophen (Tylenol) 650 mg PRN Q6HRS PRN PO MILD PAIN / TEMP Last administered on 12/24/16 00:34; Start 12/23/16 at 07:45 Fentanyl (Duragesic 50mcg/ Hr Patch) 1 patch Q3DAYS TD Last administered on 17:12; Start 12/23/16 at 17:00 Heparin Sodium/ Sodium Chloride 60 unit 1X ONCE IV Last administered on 16:20; Start 12/23/16 at 16:00; Stop 12/23/16 at 16:02; Status DC Heparin Sodium/ Sodium Chloride 500 ml @ As Directed STK-MED ONCE .ROUTE ; Start 12/23/16 at 15:27; Stop 12/23/16 at 15:33; Status DC Hydromorphone HCl (Dilaudid) 2 mg PRN Q3HRS PRN IV PAIN Last administered on 22:52; Start 12/23/16 at 18:00 Levofloxacin/ Dextrose (LEVAQUIN 750mg PREMIX) 150 ml @ 100 mls/hr Q48H IV ; Start 12/23/16 at 15:00; Stop 12/23/16 at 15:00; Status DC Lidocaine/Sodium Bicarbonate (Buffered Lidocaine 1%) 3 ml 1X ONCE IJ Last administered on 12/23/16 16:20; Start 12/23/16 at 16:00; Stop 12/23/16 at 16:02 ; Status DC Lidocaine/Sodium Bicarbonate 20 ml 20 ml STK-MED ONCE IJ ; Start 12/23/16 at 15: 27; Stop 12/23/16 at 15:33; Status DC Vancomycin HCl 1 each 1X ONCE MC ; Start 12/23/16 at 14:30; Stop 12/23/16 at 14 :30; Status DC Assessment Assessment Assessment 1. abscess with cellulitis R foot/sepsis S/P ID 12/23/16 2. DVT RLE 12/11/16 on Eliquis with h/o PE, DVT RLE & IVC filter 3. CKD III Cr range 1.9-2.4 no ARF or KENDAL 4. chronic CHF systolic EF 30-35% not acute 5. DM II with neuropathy, PVD, chronic insulin use 6. anxiety/depression 7. HTN 8. hyperlipidemia 9. CAD with h/o CT and PCI with stent placed 10. GERD 11. chronic LBP 12. h/o hypercapnic/hypoxic respiratory failure with narcotics 13. COPD 14. h/o CVA 15. COPD with remote h/o tobacco abuse 16. n/v due to anxiety resolved 17. urine retention with temporary price, stopped at [facility] foot plantar diabetic ulcer non healing with osteomyelitis and h/o recent debridement to bone 06/26 s /p amputation R procedure 4th and 5th toes 07/16/16 18. h/o R foot plantar diabetic ulcer non healing with osteomyelitis ( debridement to bone 06/26 s/p amputation R procedure 4th and 5th toes 07/16/16) 20. morbid obesity 21. JENNA O2 3L NC at hs 22. moderate chronic PCL malnutrition PLAN: abscess/infected R foot Levaquin/flagyl/vanc dosed in ED Lactic acid 4.4 -(approximately 4L IVF administered) 12/22 2.4 ortho consult XR foot negative niels involvement ID consult-Meropenem IV/zyvox IV /diflucan IV surgery: ID and wound vac placement 12/22 weight bearing to transfer only per Dr. Robles 12/24-CS pending PICC placed 12/23/16 ARF taking zaroxlyn 2.5mg bid since Wednesday + chronic torsemide 100mg daily 07/18/16 BUN 29 Cr 1.9 Admit BUN 40 12/24 49 Cr 2.4 2.7 K 4.4 3.4 Stop zaroxlyn Replace potassium 20 meq po x 1 12/22 No IVF at this time-going to surgery and 4L already given-eval in AM 12/22 consult renal Not ARF per nephrology CKD III Cr range 1.9-2.4 Replace K 20meq x1 12/24/16 CHF Admit weight 281.37 0 12/24 281.0# IO Daily weight BNP 1337-secondary to ARF, not acute CHF CXR clear Coreg 6.25 in addition to Aldactazide 12.5mg initiated 12/24/16 Decrease Coreg to 3.125mg bid Low BP not sepsis DVT RLE Eliquis 5mg bid Hold since admit Restart this evening after surgery (per Dr. Robles)_ DM II FSBS/SSI Levemir 30u bid Novolog 15u tid ac SSI low intensity BS 78-188 Levemir 60u bid 12/22 Novolog 35u tid ac 12/22 Decrease Novolog to 30u TID ac h/o hypercapnic respiratory failure with narcotics Last admission Dilaudid 2-4mg IV q3hr prn post op-continue that this admission staff advised of risk with narcotic meds with respiratory status. DVT/GI prophylaxis Eliquis PPI For more details regarding further plans, please refer to the orders The patient was seen and examined by me. Chart reviewed and plan of care formulated. Discussed with, reviewed and agree with ANTHROPOMETRIST's notes, plan of care and orders with modifications as necessary. For more details regarding further plans, please refer to the orders. Plan Plan The patient was seen and examined by me. Chart reviewed and plan of care formulated. Discussed with, reviewed and agree with ANTHROPOMETRIST's notes, plan of care and orders with modifications as necessary. For more details regarding further plans, please refer to the orders. CHELE SINGH MD 12/24/16 1015: IM PROGRESS NOTES- Assessment Assessment The patient was seen and examined by me. Chart reviewed and plan of care formulated. Discussed with, reviewed and agree with ANTHROPOMETRIST's notes, plan of care and orders with modifications as necessary. For more details regarding further plans, please refer to the orders. Patient wants to go home and not to SNF when ready.I am not sure if she can manage care at home. YVONNE LAYNE APRN Dec 24, 2016 06:52 CHELE SINGH MD Dec 24, 2016 10:15
--- NOTE | 2016-12-24 06:56 | DISCH ---
DISCHARGE FINAL DIAGNOSIS Problems Medical Problems: (1) DM (diabetes mellitus) Status: Acute (2) Sepsis Status: Acute (3) Wound infection Status: Acute CONDITION ON DISCHARGE: Stable HOME HEALTH: Yes PT. HAS FUNCTIONAL LIMITATIONS: Yes FACE TO FACE ENCOUNTER: Yes POST DISCHARGE ORDERS ACTIVITY ORDERS: Activity as tolerated WEIGHT BEARING STATUS: Partial weight bearing (R foot-weight bear to transfer, use scooted for mobility R leg. ) BATHING ORDERS: Shower-keep dressing dry DIET AFTER DISCHARGE: Cardiac OTHER WOUND INSTRUCTIONS: wound vac -change every 3 days OTHER ORDERS: wound care out patient [facility] CHECKS AFTER DISCHARGE CHECKS AFTER DISCHARGE: Check blood sugar, ac/hs, Weigh Yourself Daily FOLLOW-UP PHYSICIAN FOLLOW-UP: Dr. Johnson in 3-5 days ADDITIONAL FOLLOW-UP: Dr. Robles per his instructions, [facility] per their instructio TREATMENT/EQUIPMENT ORDERS ADAPTIVE EQUIPMENT NEEDED: Raised toilet seat w/arms, Sliding board, Wheelchair RESPIRATORY EQUIPMENT NEEDED: Oxygen (3L at hs; 2L during day. ), Nebulizer ( QID prn ) YVONNE LAYNE APRN Dec 24, 2016 06:56
[2016-12-24 07:00] VITALS: BP 102/61
[2016-12-24] MEDS ORDERED: INSU100I27 SQ (07:00)
[2016-12-24] MEDS ORDERED: SPIR25TA PO (07:00)
[2016-12-24] MEDS ORDERED: INSU100I17 SQ (07:00)
[2016-12-24] MEDS ORDERED: CARV3.12 PO (07:00)
--- NOTE | 2016-12-24 07:00 | PDOC ---
Infectious Disease Note Subjective Subjective Doing way better ROS ROS GEN: Denies fevers, chills, sweats HEENT: Denies blurred vision. Still mild dry throat CV: Denies chest pain RESP: Denies shortness of air, cough GI: Denies n/v/d NEURO: Denies confusion, dizziness MSK: Denies weakness Vital Sign Vital Signs Vital Signs Date Time Temp Pulse Resp B/P Pulse Ox O2 Delivery O2 Flow Rate FiO2 12/24/16 03:05 98.0 78 16 94/62 93 Nasal Cannula 2.0 98.0 Physical Exam PHYSICAL EXAM GENERAL: NAD, Alert HEENT: PERRL, OC/OP - clear NECK: Supple, no JVD, no LN LUNGS: Clear HEART: S1S2, no gallop, no murmur ABD: Soft, NT, no organomegaly, no rebound, Obese EXT: RLE with 2 to 3 plus edema, mild to mod erythema and warmth. Vac in place. NVI. no cyanosis. 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 x 3, no focal neurologic deficit SKIN: No rash IV: PICC - clean RUE Labs Lab Laboratory Tests Test 12/23/16 08:04 12/23/16 13:33 12/23/16 16:51 12/23/16 21:02 Glucose (Fingerstick) 226mg/dL (70-99) 188mg/dL (70-99) 137mg/dL (70-99) 97mg/dL (70-99) Test 12/23/16 23:58 12/24/16 04:05 Glucose (Fingerstick) 80mg/dL (70-99) White Blood Count 10.3x10^3/uL (4.0-11.0) Red Blood Count 4.46x10^6/uL (3.50-5.40) Hemoglobin 12.6g/dL (12.0-15.5) Hematocrit 39.2% (36.0-47.0) Mean Corpuscular Volume 88fL (79-100) Mean Corpuscular Hemoglobin 28pg (25-35) Mean Corpuscular Hemoglobin Concent 32g/dL (31-37) Red Cell Distribution Width 18.1% (11.5-14.5) Platelet Count 219x10^3/uL (140-400) Neutrophils (%) (Auto) 73% (31-73) Lymphocytes (%) (Auto) 17% (24-48) Monocytes (%) (Auto) 7% (0-9) Eosinophils (%) (Auto) 3% (0-3) Basophils (%) (Auto) 1% (0-3) Neutrophils # (Auto) 7.5x10^3uL (1.8-7.7) Lymphocytes # (Auto) 1.7x10^3/uL (1.0-4.8) Monocytes # (Auto) 0.7x10^3/uL (0.0-1.1) Eosinophils # (Auto) 0.3x10^3/uL (0.0-0.7) Basophils # (Auto) 0.1x10^3/uL (0.0-0.2) Sodium Level 144mmol/L (136-145) Potassium Level 3.4mmol/L (3.5-5.1) Chloride Level 100mmol/L (98-107) Carbon Dioxide Level 34mmol/L (21-32) Anion Gap 10 (6-14) Blood Urea Nitrogen 49mg/dL (7-20) Creatinine 2.7mg/dL (0.6-1.0) Estimated GFR (Cockcroft-Gault) 18.9 BUN/Creatinine Ratio 18 (6-20) Glucose Level 78mg/dL (70-99) Calcium Level 9.0mg/dL (8.5-10.1) Total Bilirubin 0.5mg/dL (0.2-1.0) Aspartate Amino Transf (AST/SGOT) 18U/L (15-37) Alanine Aminotransferase (ALT/SGPT) 18U/L (14-59) Alkaline Phosphatase 101U/L (46-116) Total Protein 6.5g/dL (6.4-8.2) Albumin 2.7g/dL (3.4-5.0) Albumin/Globulin Ratio 0.7 (1.0-1.7) Objective Assessment Right foot cellulitis Right foot abscess s/p I and D 12/22 - vac in place - cult pending Multiple abx allergies KENDAL on CKD DVT RLE Plan Plan of Care Cont Meropenem/Zyvox to po /(H/o MSSA at risk of MRSA and with KENDAL),Fluconazole F/u labs and cults D/w ARACELI Redmond MD Dec 24, 2016 07:00
--- NOTE | 2016-12-24 07:05 | DISCH ---
DISCHARGE WITH HOME HEALTH DISCHARGE INFORMATION: Final Diagnosis: Problems Medical Problems: (1) DM (diabetes mellitus) Status: Acute (2) Sepsis Status: Acute (3) Wound infection Status: Acute Condition on Discharge: Stable HOME HEALTH: Face to Face: I certify this patient is under my care and that I, or a nurse practitioner or physician's cable splicer assistant working with me, had a face to face encounter that meets the physician face to face encounter requirements with this patient on 12/24/16. Medical Condition(s): Other (wound management, CHF, DM ) Nursing Home For: Assess/Skilled Observatio (wound vac, wound care, [facility] managing wound ) Physical Therapy For: Evalulation/Treatment FOLLOW-UP: Follow up with: Dr. Johnson in 3-5 days Follow Up With: Dr. Robles per his instructions/[facility] Wound Care per serene instructions TREATMENT/EQUIPMENT ORDERS Discharge Respiratory Equipmen: Oxygen (3L nc at HS. 2L during day. ), Nebulizer (qid prn ) CERTIFICATION STATEMENT: Certification Statement: Certification Statement: Based on the above finding, I certify that this patient is confined to the home and needs intermittent chcf care, physical therapy and/or speech therapy, or continues to need occupational therapy.~ This patient is under my care, and I have initiated the establishment of the plan of care.~ This patient will be followed by myself or a community physician who will periodically review the plan of care. YVONNE LAYNE APRN Dec 24, 2016 07:05
[2016-12-24] MEDS ORDERED: FENT1PAT17 TD (07:11)
[2016-12-24] MEDS: IPRATRPIUM/ALBUTEROL 0.5/2.5MG 3 ML NEBU. NEB SCH ×4 (07:42→20:05)
[2016-12-24] MEDS: INSULIN ASPART 300 UNITS/3 ML INSULN.PEN SQ SCH ×6 (08:00→18:15)
[2016-12-24] MEDS: CARVEDILOL 3.125 MG TABLET PO SCH ×2 (08:00→17:00)
[2016-12-24] MEDS: HYDROMORPHONE 2 MG/ML VIAL. IV PRN ×3 (08:14→22:17)
[2016-12-24] MEDS: ASPIRIN ENTERIC COATED 81 MG TABLET.DR. PO SCH (08:20)
[2016-12-24] MEDS: APIXABAN 5 MG TABLET. PO SCH ×2 (08:21→22:16)
[2016-12-24] MEDS: SPIRONOLACTONE 25 MG TABLET PO SCH (08:21)
[2016-12-24] MEDS: ASCORBIC ACID 500 MG TABLET PO SCH (08:21)
[2016-12-24] MEDS: LINEZOLID 600 MG TABLET PO SCH ×2 (08:21→22:16)
[2016-12-24] MEDS: POTASSIUM CHLORIDE 20 MEQ TABLET.ER. PO SCH (08:26)
[2016-12-24] MEDS: POLYETHYLENE GLYCOL 3350 17 GM PACKET. PO SCH (08:28)
[2016-12-24] MEDS: INSULIN DETEMIR 300 UNITS/3 ML INSULN.PEN. SQ SCH ×2 (08:42→22:25)
--- NOTE | 2016-12-24 10:15 | PDOC ---
ORTHO PROGRESS NOTES Subjective Continued right foot pain, but much better than prior to surgery. Vitals Vital Signs Date Time Temp Pulse Resp B/P Pulse Ox O2 Delivery O2 Flow Rate FiO2 12/24/16 08:14 18 Nasal Cannula 3.0 12/24/16 07:44 97 12/24/16 07:00 98.2 82 102/61 98.2 Labs Laboratory Tests Test 12/22/16 10:56 12/22/16 12:31 12/22/16 14:04 12/22/16 16:51 Glucose (Fingerstick) 153mg/dL (70-99) 179mg/dL (70-99) 245mg/dL (70-99) 302mg/dL (70-99) Test 12/22/16 21:22 12/23/16 04:54 12/23/16 08:04 12/23/16 13:33 Glucose (Fingerstick) 265mg/dL (70-99) 226mg/dL (70-99) 188mg/dL (70-99) White Blood Count 10.5x10^3/uL (4.0-11.0) Red Blood Count 4.72x10^6/uL (3.50-5.40) Hemoglobin 13.4g/dL (12.0-15.5) Hematocrit 40.6% (36.0-47.0) Mean Corpuscular Volume 86fL (79-100) Mean Corpuscular Hemoglobin 28pg (25-35) Mean Corpuscular Hemoglobin Concent 33g/dL (31-37) Red Cell Distribution Width 17.9% (11.5-14.5) Platelet Count 266x10^3/uL (140-400) Neutrophils (%) (Auto) 82% (31-73) Lymphocytes (%) (Auto) 13% (24-48) Monocytes (%) (Auto) 4% (0-9) Eosinophils (%) (Auto) 0% (0-3) Basophils (%) (Auto) 1% (0-3) Neutrophils # (Auto) 8.6x10^3uL (1.8-7.7) Lymphocytes # (Auto) 1.3x10^3/uL (1.0-4.8) Monocytes # (Auto) 0.5x10^3/uL (0.0-1.1) Eosinophils # (Auto) 0.0x10^3/uL (0.0-0.7) Basophils # (Auto) 0.1x10^3/uL (0.0-0.2) Sodium Level 139mmol/L (136-145) Potassium Level 3.9mmol/L (3.5-5.1) Chloride Level 97mmol/L (98-107) Carbon Dioxide Level 33mmol/L (21-32) Anion Gap 9 (6-14) Blood Urea Nitrogen 41mg/dL (7-20) Creatinine 2.6mg/dL (0.6-1.0) Estimated GFR (Cockcroft-Gault) 19.7 BUN/Creatinine Ratio 16 (6-20) Glucose Level 267mg/dL (70-99) Calcium Level 8.8mg/dL (8.5-10.1) Total Bilirubin 0.5mg/dL (0.2-1.0) Aspartate Amino Transf (AST/SGOT) 16U/L (15-37) Alanine Aminotransferase (ALT/SGPT) 15U/L (14-59) Alkaline Phosphatase 110U/L (46-116) Total Protein 6.8g/dL (6.4-8.2) Albumin 2.7g/dL (3.4-5.0) Albumin/Globulin Ratio 0.7 (1.0-1.7) Test 12/23/16 16:51 12/23/16 21:02 12/23/16 23:58 12/24/16 04:05 Glucose (Fingerstick) 137mg/dL (70-99) 97mg/dL (70-99) 80mg/dL (70-99) White Blood Count 10.3x10^3/uL (4.0-11.0) Red Blood Count 4.46x10^6/uL (3.50-5.40) Hemoglobin 12.6g/dL (12.0-15.5) Hematocrit 39.2% (36.0-47.0) Mean Corpuscular Volume 88fL (79-100) Mean Corpuscular Hemoglobin 28pg (25-35) Mean Corpuscular Hemoglobin Concent 32g/dL (31-37) Red Cell Distribution Width 18.1% (11.5-14.5) Platelet Count 219x10^3/uL (140-400) Neutrophils (%) (Auto) 73% (31-73) Lymphocytes (%) (Auto) 17% (24-48) Monocytes (%) (Auto) 7% (0-9) Eosinophils (%) (Auto) 3% (0-3) Basophils (%) (Auto) 1% (0-3) Neutrophils # (Auto) 7.5x10^3uL (1.8-7.7) Lymphocytes # (Auto) 1.7x10^3/uL (1.0-4.8) Monocytes # (Auto) 0.7x10^3/uL (0.0-1.1) Eosinophils # (Auto) 0.3x10^3/uL (0.0-0.7) Basophils # (Auto) 0.1x10^3/uL (0.0-0.2) Sodium Level 144mmol/L (136-145) Potassium Level 3.4mmol/L (3.5-5.1) Chloride Level 100mmol/L (98-107) Carbon Dioxide Level 34mmol/L (21-32) Anion Gap 10 (6-14) Blood Urea Nitrogen 49mg/dL (7-20) Creatinine 2.7mg/dL (0.6-1.0) Estimated GFR (Cockcroft-Gault) 18.9 BUN/Creatinine Ratio 18 (6-20) Glucose Level 78mg/dL (70-99) Calcium Level 9.0mg/dL (8.5-10.1) Total Bilirubin 0.5mg/dL (0.2-1.0) Aspartate Amino Transf (AST/SGOT) 18U/L (15-37) Alanine Aminotransferase (ALT/SGPT) 18U/L (14-59) Alkaline Phosphatase 101U/L (46-116) Total Protein 6.5g/dL (6.4-8.2) Albumin 2.7g/dL (3.4-5.0) Albumin/Globulin Ratio 0.7 (1.0-1.7) Test 12/24/16 08:35 Glucose (Fingerstick) 113mg/dL (70-99) Laboratory Tests Test 12/23/16 13:33 12/23/16 16:51 12/23/16 21:02 12/23/16 23:58 Glucose (Fingerstick) 188mg/dL (70-99) 137mg/dL (70-99) 97mg/dL (70-99) 80mg/dL (70-99) Test 12/24/16 04:05 12/24/16 08:35 White Blood Count 10.3x10^3/uL (4.0-11.0) Red Blood Count 4.46x10^6/uL (3.50-5.40) Hemoglobin 12.6g/dL (12.0-15.5) Hematocrit 39.2% (36.0-47.0) Mean Corpuscular Volume 88fL (79-100) Mean Corpuscular Hemoglobin 28pg (25-35) Mean Corpuscular Hemoglobin Concent 32g/dL (31-37) Red Cell Distribution Width 18.1% (11.5-14.5) Platelet Count 219x10^3/uL (140-400) Neutrophils (%) (Auto) 73% (31-73) Lymphocytes (%) (Auto) 17% (24-48) Monocytes (%) (Auto) 7% (0-9) Eosinophils (%) (Auto) 3% (0-3) Basophils (%) (Auto) 1% (0-3) Neutrophils # (Auto) 7.5x10^3uL (1.8-7.7) Lymphocytes # (Auto) 1.7x10^3/uL (1.0-4.8) Monocytes # (Auto) 0.7x10^3/uL (0.0-1.1) Eosinophils # (Auto) 0.3x10^3/uL (0.0-0.7) Basophils # (Auto) 0.1x10^3/uL (0.0-0.2) Sodium Level 144mmol/L (136-145) Potassium Level 3.4mmol/L (3.5-5.1) Chloride Level 100mmol/L (98-107) Carbon Dioxide Level 34mmol/L (21-32) Anion Gap 10 (6-14) Blood Urea Nitrogen 49mg/dL (7-20) Creatinine 2.7mg/dL (0.6-1.0) Estimated GFR (Cockcroft-Gault) 18.9 BUN/Creatinine Ratio 18 (6-20) Glucose Level 78mg/dL (70-99) Calcium Level 9.0mg/dL (8.5-10.1) Total Bilirubin 0.5mg/dL (0.2-1.0) Aspartate Amino Transf (AST/SGOT) 18U/L (15-37) Alanine Aminotransferase (ALT/SGPT) 18U/L (14-59) Alkaline Phosphatase 101U/L (46-116) Total Protein 6.5g/dL (6.4-8.2) Albumin 2.7g/dL (3.4-5.0) Albumin/Globulin Ratio 0.7 (1.0-1.7) Glucose (Fingerstick) 113mg/dL (70-99) Notes She is awake and alert. Examination of her right lower extremity reveals edema and erythema to dorsum of her foot are improving. The wound VAC is in place with good seal. Assessment and Plan Continue wound VAC therapy for wound management. From my standpoint she can be discharged. She will need home health care for VAC changes. If unable to get this set up, she will need a referral to our wound care center. KARTHIK NICOLE II, MD Dec 24, 2016 10:15
[2016-12-24] MEDS: FLUCONAZOLE 100MG/50ML PREMIX 50 ML IV SCH (10:49)
[2016-12-24 11:00] VITALS: BP 98/58
--- NOTE | 2016-12-24 11:44 | PDOC ---
Renal-Progress Notes Subjective Notes Notes NO NEW COMPLAINTS History of Present Illness Hx of present illness STABLE Vitals Vitals Vital Signs Date Time Temp Pulse Resp B/P Pulse Ox O2 Delivery O2 Flow Rate FiO2 12/24/16 11:18 Nasal Cannula 3.0 12/24/16 08:44 18 12/24/16 08:00 70 98/58 12/24/16 07:44 97 12/24/16 07:00 98.2 98.2 Weight Weight [ ] I.O. Intake and Output Intake and Output 12/24/16 07:00 Intake Total 1500 ml Output Total 2600 ml Balance -1100 ml Intake Oral 1200 ml IV Total 300 ml Output Urine Total 2600 ml Labs Labs Laboratory Tests Test 12/23/16 13:33 12/23/16 16:51 12/23/16 21:02 12/23/16 23:58 Glucose (Fingerstick) 188mg/dL (70-99) 137mg/dL (70-99) 97mg/dL (70-99) 80mg/dL (70-99) Test 12/24/16 04:05 12/24/16 08:35 White Blood Count 10.3x10^3/uL (4.0-11.0) Red Blood Count 4.46x10^6/uL (3.50-5.40) Hemoglobin 12.6g/dL (12.0-15.5) Hematocrit 39.2% (36.0-47.0) Mean Corpuscular Volume 88fL (79-100) Mean Corpuscular Hemoglobin 28pg (25-35) Mean Corpuscular Hemoglobin Concent 32g/dL (31-37) Red Cell Distribution Width 18.1% (11.5-14.5) Platelet Count 219x10^3/uL (140-400) Neutrophils (%) (Auto) 73% (31-73) Lymphocytes (%) (Auto) 17% (24-48) Monocytes (%) (Auto) 7% (0-9) Eosinophils (%) (Auto) 3% (0-3) Basophils (%) (Auto) 1% (0-3) Neutrophils # (Auto) 7.5x10^3uL (1.8-7.7) Lymphocytes # (Auto) 1.7x10^3/uL (1.0-4.8) Monocytes # (Auto) 0.7x10^3/uL (0.0-1.1) Eosinophils # (Auto) 0.3x10^3/uL (0.0-0.7) Basophils # (Auto) 0.1x10^3/uL (0.0-0.2) Sodium Level 144mmol/L (136-145) Potassium Level 3.4mmol/L (3.5-5.1) Chloride Level 100mmol/L (98-107) Carbon Dioxide Level 34mmol/L (21-32) Anion Gap 10 (6-14) Blood Urea Nitrogen 49mg/dL (7-20) Creatinine 2.7mg/dL (0.6-1.0) Estimated GFR (Cockcroft-Gault) 18.9 BUN/Creatinine Ratio 18 (6-20) Glucose Level 78mg/dL (70-99) Calcium Level 9.0mg/dL (8.5-10.1) Total Bilirubin 0.5mg/dL (0.2-1.0) Aspartate Amino Transf (AST/SGOT) 18U/L (15-37) Alanine Aminotransferase (ALT/SGPT) 18U/L (14-59) Alkaline Phosphatase 101U/L (46-116) Total Protein 6.5g/dL (6.4-8.2) Albumin 2.7g/dL (3.4-5.0) Albumin/Globulin Ratio 0.7 (1.0-1.7) Glucose (Fingerstick) 113mg/dL (70-99) Micro Micro Microbiology 12/21/16 Blood Culture - Preliminary, Resulted NO GROWTH AFTER 2 DAYS 12/22/16 Gram Stain - Final, Complete Review of Systems Constitutional: yes: alert, oriented, weakness Ears/Nose/Throat: Yes: no symptom reported Pulmonary: Yes no symptom reported Cardiovascular: Yes no symptom reported Gastrointestional: Yes: no symptom reported Musculoskeletal: Yes: foot pain Skin: Yes no symptom reported Physical Exam General Appearance: no apparent distress, GCS Skin: warm Respiratory: decreased breath sounds Heart: S1S2, RRR Abdomen: soft Extremities: pulses present Neurology: alert Musculoskeletal: Other Assessment Assessment IMP FOOT WOUND/ABSCESS DM II CKD STAGE 3 WITH CR OF ABOUT 2.2 MILD KENDAL MILD HYPOKALEMIA\ PLAN MAY NEED SOME IVF'S OR REDUCTION IN DIURETICS IF CR CONTINUES TO GO UP REPLACE K ANTIBIOTICS D/W ATTENDING SARA RUIZ MD Dec 24, 2016 11:44
[2016-12-24] MEDS ORDERED: POTASSIUM CHLORIDE 20 MEQ TABLET.ER. PO ONE (12:00)
[2016-12-24] MEDS: TORSEMIDE 20 MG TABLET. PO SCH (12:57)
[2016-12-24 15:31] VITALS: BP 101/57
[2016-12-24 19:00] VITALS: BP 90/58
[2016-12-24] MEDS: MONTELUKAST SODIUM 10 MG TABLET. PO SCH (22:16)
[2016-12-24] MEDS: ATORVASTATIN CALCIUM 40 MG TABLET. PO SCH (22:16)
[2016-12-25] VITALS (7 sets, daily range): BP systolic 95–128; BP diastolic 56–97
[2016-12-25] MEDS: MEROPENEM 500 MG in IV NORMAL SALINE 50ML 50 ML IV SCH ×2 (00:22→06:30)
[2016-12-25 04:49] LABS: BASO # 0.1 x10^3/uL (0.0-0.2); BASO % 1 % (0-3); EOS % 5 % (0-3); HEMATOCRIT 39.4 % (36.0-47.0); HEMOGLOBIN 12.5 g/dL (12.0-15.5); LYMPH # 1.6 x10^3/uL (1.0-4.8); LYMPH % 18 % (24-48); MEAN CORPUSCULAR HEMOGLOBIN 28 pg (25-35); MEAN CORPUSCULAR HGB CONC 32 g/dL (31-37); MEAN CORPUSCULAR VOLUME 89 fL (79-100); MONO % 8 % (0-9); NEUT % 68 % (31-73); PLATELET COUNT 214 x10^3/uL (140-400); RED BLOOD COUNT 4.43 x10^6/uL (3.50-5.40); RED CELL DISTRIBUTION WIDTH 18.3 % (11.5-14.5); WHITE BLOOD COUNT 8.9 x10^3/uL (4.0-11.0)
[2016-12-25 05:12] LABS: ALBUMIN 2.7 g/dL (3.4-5.0); ALBUMIN/GLOBULIN RATIO 0.7 (1.0-1.7); CALCIUM 8.7 mg/dL (8.5-10.1); CREATININE 2.9 mg/dL (0.6-1.0); GFR 17.4; POTASSIUM 3.8 mmol/L (3.5-5.1); TOTAL BILIRUBIN 0.5 mg/dL (0.2-1.0); TOTAL PROTEIN 6.6 g/dL (6.4-8.2)
[2016-12-25] MEDS: PANTOPRAZOLE 40 MG TABLET. PO SCH (06:30)
[2016-12-25] MEDS: HYDROMORPHONE 2 MG/ML VIAL. IV PRN ×4 (06:30→20:47)
[2016-12-25] MEDS: IPRATRPIUM/ALBUTEROL 0.5/2.5MG 3 ML NEBU. NEB SCH ×4 (07:25→20:35)
--- NOTE | 2016-12-25 07:36 | PDOC ---
RAMONITACRISTINAYVONNE CHAPLAIN RESIDENT 12/25/16 0736: IM PROGRESS NOTES- Subjective Subjective slight nausea this morning. Objective Objective alert, no distress Vitals Vital Signs Date Time Temp Pulse Resp B/P Pulse Ox O2 Delivery O2 Flow Rate FiO2 12/25/16 07:26 97 Nasal Cannula 3.0 12/25/16 03:00 97.5 80 18 95/56 97.5 Input & Output Intake and Output 12/25/16 07:00 Intake Total 770 ml Output Total 2400 ml Balance -1630 ml Intake Oral 770 ml Output Urine Total 2400 ml # Voids 1 Physical Exam Physical Exam General appearance - alert,well appearing, and in no distress Mental Status - alert, oriented to person, place, and time, affect appropriate to mood Head - normal Chest - clear to auscultation, no wheezes, rales or rhonchi, symmetric air entry Heart - S1 and S2 normal Abdomen - soft, nontender, nondistended, BS+ Neurological - no acute focal neurological deficits noted Musculoskeletal - no muscular tenderness noted Extremities - ++ swelling RLE, wound vac R foot. Skin - warm and dry Labs Laboratory Tests Test 12/23/16 08:04 12/23/16 13:33 12/23/16 16:51 12/23/16 21:02 Glucose (Fingerstick) 226mg/dL (70-99) 188mg/dL (70-99) 137mg/dL (70-99) 97mg/dL (70-99) Test 12/23/16 23:58 12/24/16 04:05 12/24/16 08:35 12/24/16 10:51 Glucose (Fingerstick) 80mg/dL (70-99) 113mg/dL (70-99) 135mg/dL (70-99) White Blood Count 10.3x10^3/uL (4.0-11.0) Red Blood Count 4.46x10^6/uL (3.50-5.40) Hemoglobin 12.6g/dL (12.0-15.5) Hematocrit 39.2% (36.0-47.0) Mean Corpuscular Volume 88fL (79-100) Mean Corpuscular Hemoglobin 28pg (25-35) Mean Corpuscular Hemoglobin Concent 32g/dL (31-37) Red Cell Distribution Width 18.1% (11.5-14.5) Platelet Count 219x10^3/uL (140-400) Neutrophils (%) (Auto) 73% (31-73) Lymphocytes (%) (Auto) 17% (24-48) Monocytes (%) (Auto) 7% (0-9) Eosinophils (%) (Auto) 3% (0-3) Basophils (%) (Auto) 1% (0-3) Neutrophils # (Auto) 7.5x10^3uL (1.8-7.7) Lymphocytes # (Auto) 1.7x10^3/uL (1.0-4.8) Monocytes # (Auto) 0.7x10^3/uL (0.0-1.1) Eosinophils # (Auto) 0.3x10^3/uL (0.0-0.7) Basophils # (Auto) 0.1x10^3/uL (0.0-0.2) Sodium Level 144mmol/L (136-145) Potassium Level 3.4mmol/L (3.5-5.1) Chloride Level 100mmol/L (98-107) Carbon Dioxide Level 34mmol/L (21-32) Anion Gap 10 (6-14) Blood Urea Nitrogen 49mg/dL (7-20) Creatinine 2.7mg/dL (0.6-1.0) Estimated GFR (Cockcroft-Gault) 18.9 BUN/Creatinine Ratio 18 (6-20) Glucose Level 78mg/dL (70-99) Calcium Level 9.0mg/dL (8.5-10.1) Total Bilirubin 0.5mg/dL (0.2-1.0) Aspartate Amino Transf (AST/SGOT) 18U/L (15-37) Alanine Aminotransferase (ALT/SGPT) 18U/L (14-59) Alkaline Phosphatase 101U/L (46-116) Total Protein 6.5g/dL (6.4-8.2) Albumin 2.7g/dL (3.4-5.0) Albumin/Globulin Ratio 0.7 (1.0-1.7) Test 12/24/16 17:07 12/24/16 19:49 12/25/16 04:00 Glucose (Fingerstick) 165mg/dL (70-99) 182mg/dL (70-99) White Blood Count 8.9x10^3/uL (4.0-11.0) Red Blood Count 4.43x10^6/uL (3.50-5.40) Hemoglobin 12.5g/dL (12.0-15.5) Hematocrit 39.4% (36.0-47.0) Mean Corpuscular Volume 89fL (79-100) Mean Corpuscular Hemoglobin 28pg (25-35) Mean Corpuscular Hemoglobin Concent 32g/dL (31-37) Red Cell Distribution Width 18.3% (11.5-14.5) Platelet Count 214x10^3/uL (140-400) Neutrophils (%) (Auto) 68% (31-73) Lymphocytes (%) (Auto) 18% (24-48) Monocytes (%) (Auto) 8% (0-9) Eosinophils (%) (Auto) 5% (0-3) Basophils (%) (Auto) 1% (0-3) Neutrophils # (Auto) 6.0x10^3uL (1.8-7.7) Lymphocytes # (Auto) 1.6x10^3/uL (1.0-4.8) Monocytes # (Auto) 0.7x10^3/uL (0.0-1.1) Eosinophils # (Auto) 0.4x10^3/uL (0.0-0.7) Basophils # (Auto) 0.1x10^3/uL (0.0-0.2) Sodium Level 144mmol/L (136-145) Potassium Level 3.8mmol/L (3.5-5.1) Chloride Level 100mmol/L (98-107) Carbon Dioxide Level 38mmol/L (21-32) Anion Gap 6 (6-14) Blood Urea Nitrogen 52mg/dL (7-20) Creatinine 2.9mg/dL (0.6-1.0) Estimated GFR (Cockcroft-Gault) 17.4 BUN/Creatinine Ratio 18 (6-20) Glucose Level 121mg/dL (70-99) Calcium Level 8.7mg/dL (8.5-10.1) Total Bilirubin 0.5mg/dL (0.2-1.0) Aspartate Amino Transf (AST/SGOT) 41U/L (15-37) Alanine Aminotransferase (ALT/SGPT) 26U/L (14-59) Alkaline Phosphatase 158U/L (46-116) Total Protein 6.6g/dL (6.4-8.2) Albumin 2.7g/dL (3.4-5.0) Albumin/Globulin Ratio 0.7 (1.0-1.7) Laboratory Tests Test 12/24/16 08:35 12/24/16 10:51 12/24/16 17:07 12/24/16 19:49 Glucose (Fingerstick) 113mg/dL (70-99) 135mg/dL (70-99) 165mg/dL (70-99) 182mg/dL (70-99) Test 12/25/16 04:00 White Blood Count 8.9x10^3/uL (4.0-11.0) Red Blood Count 4.43x10^6/uL (3.50-5.40) Hemoglobin 12.5g/dL (12.0-15.5) Hematocrit 39.4% (36.0-47.0) Mean Corpuscular Volume 89fL (79-100) Mean Corpuscular Hemoglobin 28pg (25-35) Mean Corpuscular Hemoglobin Concent 32g/dL (31-37) Red Cell Distribution Width 18.3% (11.5-14.5) Platelet Count 214x10^3/uL (140-400) Neutrophils (%) (Auto) 68% (31-73) Lymphocytes (%) (Auto) 18% (24-48) Monocytes (%) (Auto) 8% (0-9) Eosinophils (%) (Auto) 5% (0-3) Basophils (%) (Auto) 1% (0-3) Neutrophils # (Auto) 6.0x10^3uL (1.8-7.7) Lymphocytes # (Auto) 1.6x10^3/uL (1.0-4.8) Monocytes # (Auto) 0.7x10^3/uL (0.0-1.1) Eosinophils # (Auto) 0.4x10^3/uL (0.0-0.7) Basophils # (Auto) 0.1x10^3/uL (0.0-0.2) Sodium Level 144mmol/L (136-145) Potassium Level 3.8mmol/L (3.5-5.1) Chloride Level 100mmol/L (98-107) Carbon Dioxide Level 38mmol/L (21-32) Anion Gap 6 (6-14) Blood Urea Nitrogen 52mg/dL (7-20) Creatinine 2.9mg/dL (0.6-1.0) Estimated GFR (Cockcroft-Gault) 17.4 BUN/Creatinine Ratio 18 (6-20) Glucose Level 121mg/dL (70-99) Calcium Level 8.7mg/dL (8.5-10.1) Total Bilirubin 0.5mg/dL (0.2-1.0) Aspartate Amino Transf (AST/SGOT) 41U/L (15-37) Alanine Aminotransferase (ALT/SGPT) 26U/L (14-59) Alkaline Phosphatase 158U/L (46-116) Total Protein 6.6g/dL (6.4-8.2) Albumin 2.7g/dL (3.4-5.0) Albumin/Globulin Ratio 0.7 (1.0-1.7) Meds Current Medications Carvedilol (Coreg) 3.125 mg BIDWMEALS PO ; Start 12/24/16 at 08:00 Insulin Aspart (Novolog) 30 units TIDWMEALS SQ Last administered on 12/24/16 18:14; Start 12/24/16 at 08:00 Linezolid (Zyvox) 600 mg BID PO Last administered on 12/24/16 22:16; Start at 09:00 Potassium Chloride (Klor-Con) 20 meq 1X ONCE PO Last administered on 12:53; Start 12/24/16 at 12:00; Stop 12/24/16 at 12:01; Status DC Assessment Assessment 1. abscess with cellulitis R foot/sepsis S/P ID 12/23/16 2. DVT RLE 12/11/16 on Eliquis with h/o PE, DVT RLE & IVC filter 3. CKD III Cr range 1.9-2.4 no ARF or KENDAL 4. chronic CHF systolic EF 30-35% not acute 5. DM II with neuropathy, PVD, chronic insulin use 6. anxiety/depression 7. HTN 8. hyperlipidemia 9. CAD with h/o HI and PCI with stent placed 10. GERD 11. chronic LBP 12. h/o hypercapnic/hypoxic respiratory failure with narcotics 13. COPD 14. h/o CVA 15. COPD with remote h/o tobacco abuse 16. n/v due to anxiety resolved 17. urine retention with temporary price, stopped at DCR foot plantar diabetic ulcer non healing with osteomyelitis and h/o recent debridement to bone 06/26 s /p amputation R procedure 4th and 5th toes 07/16/16 18. h/o R foot plantar diabetic ulcer non healing with osteomyelitis ( debridement to bone 06/26 s/p amputation R procedure 4th and 5th toes 07/16/16) 20. morbid obesity 21. JENNA O2 3L NC at hs 22. moderate chronic PCL malnutrition PLAN: abscess/infected R foot Levaquin/flagyl/vanc dosed in ED Lactic acid 4.4 -(approximately 4L IVF administered) 12/22 2.4 ortho consult XR foot negative niels involvement ID consult-Meropenem IV/zyvox IV /diflucan IV surgery: ID and wound vac placement 12/22 weight bearing to transfer only per Dr. Robles neg anaerobes, coag neg staph + PICC placed 12/23/16 ARF taking zaroxlyn 2.5mg bid since Wednesday + chronic torsemide 100mg daily 07/18/16 BUN 29 Cr 1.9 Admit BUN 40 12/25 52 Cr 2.4 2.9 K 4.4 3.8 Stop zaroxlyn Replace potassium 20 meq po x 1 12/22 No IVF at this time-going to surgery and 4L already given-eval in AM 12/22 consult renal Not ARF per nephrology CKD III Cr range 1.9-2.4 Replace K 20meq x1 12/24/16 CHF Admit weight 281.37 0 12/25 285# IO Daily weight BNP 1337-secondary to ARF, not acute CHF CXR clear Coreg 6.25 in addition to Aldactazide 12.5mg initiated 12/24/16 Decrease Coreg to 3.125mg bid 12/24 Low BP not sepsis SBP 90s DVT RLE Eliquis 5mg bid Hold since admit Restart this evening after surgery (per Dr. Aberle)_ DM II FSBS/SSI Levemir 30u bid Novolog 15u tid ac SSI low intensity BS 113-182 Levemir 60u bid 12/22 Novolog 35u tid ac 12/22 Decrease Novolog to 30u TID ac 12/24 h/o hypercapnic respiratory failure with narcotics Last admission Dilaudid 2-4mg IV q3hr prn post op-continue that this admission staff advised of risk with narcotic meds with respiratory status. DVT/GI prophylaxis Eliquis PPI For more details regarding further plans, please refer to the orders Plan Plan For more details regarding further plans, please refer to the orders. CHELE SINGH MD 12/25/16 1034: IM PROGRESS NOTES- Assessment Assessment D/w - creatinine 2.9- pt encouraged to drink more fluids. start IV fluids.Discharge to SNF tomorrow if better. The patient was seen and examined by me. Chart reviewed and plan of care formulated. Discussed with, reviewed and agree with AUTOMOT[employer]S COUNTER ASSOCIATE's notes, plan of care and orders with modifications as necessary. For more details regarding further plans, please refer to the orders. YVONNE LAYNE APRN Dec 25, 2016 07:36 CHELE SINGH MD Dec 25, 2016 10:34
[2016-12-25] MEDS: CARVEDILOL 3.125 MG TABLET PO SCH ×2 (08:00→17:00)
[2016-12-25] MEDS: INSULIN ASPART 300 UNITS/3 ML INSULN.PEN SQ SCH ×6 (08:00→17:00)
--- NOTE | 2016-12-25 08:53 | PDOC ---
ORTHO PROGRESS NOTES Subjective Her right foot pain is unchanged. No other complaints. Eating breakfast. Vitals Vital Signs Date Time Temp Pulse Resp B/P Pulse Ox O2 Delivery O2 Flow Rate FiO2 12/25/16 07:35 97.9 89 18 105/58 93 Nasal Cannula 2.0 97.9 Labs Laboratory Tests Test 12/23/16 13:33 12/23/16 16:51 12/23/16 21:02 12/23/16 23:58 Glucose (Fingerstick) 188mg/dL (70-99) 137mg/dL (70-99) 97mg/dL (70-99) 80mg/dL (70-99) Test 12/24/16 04:05 12/24/16 08:35 12/24/16 10:51 12/24/16 17:07 White Blood Count 10.3x10^3/uL (4.0-11.0) Red Blood Count 4.46x10^6/uL (3.50-5.40) Hemoglobin 12.6g/dL (12.0-15.5) Hematocrit 39.2% (36.0-47.0) Mean Corpuscular Volume 88fL (79-100) Mean Corpuscular Hemoglobin 28pg (25-35) Mean Corpuscular Hemoglobin Concent 32g/dL (31-37) Red Cell Distribution Width 18.1% (11.5-14.5) Platelet Count 219x10^3/uL (140-400) Neutrophils (%) (Auto) 73% (31-73) Lymphocytes (%) (Auto) 17% (24-48) Monocytes (%) (Auto) 7% (0-9) Eosinophils (%) (Auto) 3% (0-3) Basophils (%) (Auto) 1% (0-3) Neutrophils # (Auto) 7.5x10^3uL (1.8-7.7) Lymphocytes # (Auto) 1.7x10^3/uL (1.0-4.8) Monocytes # (Auto) 0.7x10^3/uL (0.0-1.1) Eosinophils # (Auto) 0.3x10^3/uL (0.0-0.7) Basophils # (Auto) 0.1x10^3/uL (0.0-0.2) Sodium Level 144mmol/L (136-145) Potassium Level 3.4mmol/L (3.5-5.1) Chloride Level 100mmol/L (98-107) Carbon Dioxide Level 34mmol/L (21-32) Anion Gap 10 (6-14) Blood Urea Nitrogen 49mg/dL (7-20) Creatinine 2.7mg/dL (0.6-1.0) Estimated GFR (Cockcroft-Gault) 18.9 BUN/Creatinine Ratio 18 (6-20) Glucose Level 78mg/dL (70-99) Calcium Level 9.0mg/dL (8.5-10.1) Total Bilirubin 0.5mg/dL (0.2-1.0) Aspartate Amino Transf (AST/SGOT) 18U/L (15-37) Alanine Aminotransferase (ALT/SGPT) 18U/L (14-59) Alkaline Phosphatase 101U/L (46-116) Total Protein 6.5g/dL (6.4-8.2) Albumin 2.7g/dL (3.4-5.0) Albumin/Globulin Ratio 0.7 (1.0-1.7) Glucose (Fingerstick) 113mg/dL (70-99) 135mg/dL (70-99) 165mg/dL (70-99) Test 12/24/16 19:49 12/25/16 04:00 Glucose (Fingerstick) 182mg/dL (70-99) White Blood Count 8.9x10^3/uL (4.0-11.0) Red Blood Count 4.43x10^6/uL (3.50-5.40) Hemoglobin 12.5g/dL (12.0-15.5) Hematocrit 39.4% (36.0-47.0) Mean Corpuscular Volume 89fL (79-100) Mean Corpuscular Hemoglobin 28pg (25-35) Mean Corpuscular Hemoglobin Concent 32g/dL (31-37) Red Cell Distribution Width 18.3% (11.5-14.5) Platelet Count 214x10^3/uL (140-400) Neutrophils (%) (Auto) 68% (31-73) Lymphocytes (%) (Auto) 18% (24-48) Monocytes (%) (Auto) 8% (0-9) Eosinophils (%) (Auto) 5% (0-3) Basophils (%) (Auto) 1% (0-3) Neutrophils # (Auto) 6.0x10^3uL (1.8-7.7) Lymphocytes # (Auto) 1.6x10^3/uL (1.0-4.8) Monocytes # (Auto) 0.7x10^3/uL (0.0-1.1) Eosinophils # (Auto) 0.4x10^3/uL (0.0-0.7) Basophils # (Auto) 0.1x10^3/uL (0.0-0.2) Sodium Level 144mmol/L (136-145) Potassium Level 3.8mmol/L (3.5-5.1) Chloride Level 100mmol/L (98-107) Carbon Dioxide Level 38mmol/L (21-32) Anion Gap 6 (6-14) Blood Urea Nitrogen 52mg/dL (7-20) Creatinine 2.9mg/dL (0.6-1.0) Estimated GFR (Cockcroft-Gault) 17.4 BUN/Creatinine Ratio 18 (6-20) Glucose Level 121mg/dL (70-99) Calcium Level 8.7mg/dL (8.5-10.1) Total Bilirubin 0.5mg/dL (0.2-1.0) Aspartate Amino Transf (AST/SGOT) 41U/L (15-37) Alanine Aminotransferase (ALT/SGPT) 26U/L (14-59) Alkaline Phosphatase 158U/L (46-116) Total Protein 6.6g/dL (6.4-8.2) Albumin 2.7g/dL (3.4-5.0) Albumin/Globulin Ratio 0.7 (1.0-1.7) Laboratory Tests Test 12/24/16 10:51 12/24/16 17:07 12/24/16 19:49 12/25/16 04:00 Glucose (Fingerstick) 135mg/dL (70-99) 165mg/dL (70-99) 182mg/dL (70-99) White Blood Count 8.9x10^3/uL (4.0-11.0) Red Blood Count 4.43x10^6/uL (3.50-5.40) Hemoglobin 12.5g/dL (12.0-15.5) Hematocrit 39.4% (36.0-47.0) Mean Corpuscular Volume 89fL (79-100) Mean Corpuscular Hemoglobin 28pg (25-35) Mean Corpuscular Hemoglobin Concent 32g/dL (31-37) Red Cell Distribution Width 18.3% (11.5-14.5) Platelet Count 214x10^3/uL (140-400) Neutrophils (%) (Auto) 68% (31-73) Lymphocytes (%) (Auto) 18% (24-48) Monocytes (%) (Auto) 8% (0-9) Eosinophils (%) (Auto) 5% (0-3) Basophils (%) (Auto) 1% (0-3) Neutrophils # (Auto) 6.0x10^3uL (1.8-7.7) Lymphocytes # (Auto) 1.6x10^3/uL (1.0-4.8) Monocytes # (Auto) 0.7x10^3/uL (0.0-1.1) Eosinophils # (Auto) 0.4x10^3/uL (0.0-0.7) Basophils # (Auto) 0.1x10^3/uL (0.0-0.2) Sodium Level 144mmol/L (136-145) Potassium Level 3.8mmol/L (3.5-5.1) Chloride Level 100mmol/L (98-107) Carbon Dioxide Level 38mmol/L (21-32) Anion Gap 6 (6-14) Blood Urea Nitrogen 52mg/dL (7-20) Creatinine 2.9mg/dL (0.6-1.0) Estimated GFR (Cockcroft-Gault) 17.4 BUN/Creatinine Ratio 18 (6-20) Glucose Level 121mg/dL (70-99) Calcium Level 8.7mg/dL (8.5-10.1) Total Bilirubin 0.5mg/dL (0.2-1.0) Aspartate Amino Transf (AST/SGOT) 41U/L (15-37) Alanine Aminotransferase (ALT/SGPT) 26U/L (14-59) Alkaline Phosphatase 158U/L (46-116) Total Protein 6.6g/dL (6.4-8.2) Albumin 2.7g/dL (3.4-5.0) Albumin/Globulin Ratio 0.7 (1.0-1.7) Notes Coagulase-negative staph aureus on culture She is awake and alert. Examination right lower extremity reveals the edema and erythema is largely unchanged compared to yesterday. The wound VAC is in place with a good seal. Assessment and Plan Wound VAC changes with home health. Okay to weight-bear for ADLs and transfers only as required. From my standpoint, she can be discharged whenever medically stable. She should follow up in 2-3 weeks. KARTHIK NICOLE II, MD Dec 25, 2016 08:53
[2016-12-25] MEDS: SPIRONOLACTONE 25 MG TABLET PO SCH (09:00)
--- NOTE | 2016-12-25 09:03 | PDOC ---
Infectious Disease Note Subjective Subjective Doing way better ROS ROS GEN: Denies fevers, chills, sweats HEENT: Denies blurred vision, sore throat CV: Denies chest pain RESP: Denies shortness of air, cough GI: Denies n/v/d NEURO: Denies confusion, dizziness MSK: Denies weakness, joint pain/swelling Vital Sign Vital Signs Vital Signs Date Time Temp Pulse Resp B/P Pulse Ox O2 Delivery O2 Flow Rate FiO2 12/25/16 07:35 97.9 89 18 105/58 93 Nasal Cannula 2.0 97.9 Physical Exam PHYSICAL EXAM GENERAL: NAD, Alert HEENT: PERRL, OC/OP - clear NECK: Supple, no JVD, no LN LUNGS: Clear HEART: S1S2, no gallop, no murmur ABD: Soft, NT, no organomegaly, no rebound, Obese EXT: RLE with 2 plus edema, mild to mod erythema and warmth better. Vac in place. NVI. no cyanosis. 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: Alert, oriented x 3, no focal neurologic deficit SKIN: No rash IV: PICC - clean RUE Labs Lab Laboratory Tests Test 12/24/16 10:51 12/24/16 17:07 12/24/16 19:49 12/25/16 04:00 Glucose (Fingerstick) 135mg/dL (70-99) 165mg/dL (70-99) 182mg/dL (70-99) White Blood Count 8.9x10^3/uL (4.0-11.0) Red Blood Count 4.43x10^6/uL (3.50-5.40) Hemoglobin 12.5g/dL (12.0-15.5) Hematocrit 39.4% (36.0-47.0) Mean Corpuscular Volume 89fL (79-100) Mean Corpuscular Hemoglobin 28pg (25-35) Mean Corpuscular Hemoglobin Concent 32g/dL (31-37) Red Cell Distribution Width 18.3% (11.5-14.5) Platelet Count 214x10^3/uL (140-400) Neutrophils (%) (Auto) 68% (31-73) Lymphocytes (%) (Auto) 18% (24-48) Monocytes (%) (Auto) 8% (0-9) Eosinophils (%) (Auto) 5% (0-3) Basophils (%) (Auto) 1% (0-3) Neutrophils # (Auto) 6.0x10^3uL (1.8-7.7) Lymphocytes # (Auto) 1.6x10^3/uL (1.0-4.8) Monocytes # (Auto) 0.7x10^3/uL (0.0-1.1) Eosinophils # (Auto) 0.4x10^3/uL (0.0-0.7) Basophils # (Auto) 0.1x10^3/uL (0.0-0.2) Sodium Level 144mmol/L (136-145) Potassium Level 3.8mmol/L (3.5-5.1) Chloride Level 100mmol/L (98-107) Carbon Dioxide Level 38mmol/L (21-32) Anion Gap 6 (6-14) Blood Urea Nitrogen 52mg/dL (7-20) Creatinine 2.9mg/dL (0.6-1.0) Estimated GFR (Cockcroft-Gault) 17.4 BUN/Creatinine Ratio 18 (6-20) Glucose Level 121mg/dL (70-99) Calcium Level 8.7mg/dL (8.5-10.1) Total Bilirubin 0.5mg/dL (0.2-1.0) Aspartate Amino Transf (AST/SGOT) 41U/L (15-37) Alanine Aminotransferase (ALT/SGPT) 26U/L (14-59) Alkaline Phosphatase 158U/L (46-116) Total Protein 6.6g/dL (6.4-8.2) Albumin 2.7g/dL (3.4-5.0) Albumin/Globulin Ratio 0.7 (1.0-1.7) Objective Assessment Right foot cellulitis Right foot abscess s/p I and D 12/22 - vac in place - + MRSA. D/w micro. 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
[2016-12-25] MEDS: ACETAMINOPHEN 325 MG TABLET. PO PRN ×2 (09:26→17:41)
[2016-12-25] MEDS: ONDANSETRON PF 4 MG/2 ML VIAL. IV PRN (09:27)
[2016-12-25] MEDS ORDERED: LINE600T PO (09:46)
[2016-12-25] MEDS ORDERED: METR500T PO (09:46)
[2016-12-25] MEDS ORDERED: HYDR2TAB13 PO ×2 (09:54)
[2016-12-25] MEDS: APIXABAN 5 MG TABLET. PO SCH ×2 (09:55→20:47)
[2016-12-25] MEDS: LINEZOLID 600 MG TABLET PO SCH ×2 (09:55→20:47)
[2016-12-25] MEDS: ASPIRIN ENTERIC COATED 81 MG TABLET.DR. PO SCH (09:55)
[2016-12-25] MEDS: POTASSIUM CHLORIDE 20 MEQ TABLET.ER. PO SCH (09:56)
[2016-12-25] MEDS: POLYETHYLENE GLYCOL 3350 17 GM PACKET. PO SCH (09:56)
[2016-12-25] MEDS: ASCORBIC ACID 500 MG TABLET PO SCH (09:56)
[2016-12-25] MEDS: TORSEMIDE 20 MG TABLET. PO SCH (09:58)
[2016-12-25] MEDS: INSULIN DETEMIR 300 UNITS/3 ML INSULN.PEN. SQ SCH ×2 (10:02→21:20)
--- NOTE | 2016-12-25 11:00 | PDOC ---
Renal-Progress Notes Subjective Notes Notes NO NEW COMPLAINTS History of Present Illness Hx of present illness STABLE Vitals Vitals Vital Signs Date Time Temp Pulse Resp B/P Pulse Ox O2 Delivery O2 Flow Rate FiO2 12/25/16 10:16 97.4 84 18 122/65 93 Nasal Cannula 2.0 97.4 Weight Weight [ ] I.O. Intake and Output Intake and Output 12/25/16 07:00 Intake Total 770 ml Output Total 2400 ml Balance -1630 ml Intake Oral 770 ml Output Urine Total 2400 ml # Voids 1 Labs Labs Laboratory Tests Test 12/24/16 17:07 12/24/16 19:49 12/25/16 04:00 12/25/16 07:39 Glucose (Fingerstick) 165mg/dL (70-99) 182mg/dL (70-99) 119mg/dL (70-99) White Blood Count 8.9x10^3/uL (4.0-11.0) Red Blood Count 4.43x10^6/uL (3.50-5.40) Hemoglobin 12.5g/dL (12.0-15.5) Hematocrit 39.4% (36.0-47.0) Mean Corpuscular Volume 89fL (79-100) Mean Corpuscular Hemoglobin 28pg (25-35) Mean Corpuscular Hemoglobin Concent 32g/dL (31-37) Red Cell Distribution Width 18.3% (11.5-14.5) Platelet Count 214x10^3/uL (140-400) Neutrophils (%) (Auto) 68% (31-73) Lymphocytes (%) (Auto) 18% (24-48) Monocytes (%) (Auto) 8% (0-9) Eosinophils (%) (Auto) 5% (0-3) Basophils (%) (Auto) 1% (0-3) Neutrophils # (Auto) 6.0x10^3uL (1.8-7.7) Lymphocytes # (Auto) 1.6x10^3/uL (1.0-4.8) Monocytes # (Auto) 0.7x10^3/uL (0.0-1.1) Eosinophils # (Auto) 0.4x10^3/uL (0.0-0.7) Basophils # (Auto) 0.1x10^3/uL (0.0-0.2) Sodium Level 144mmol/L (136-145) Potassium Level 3.8mmol/L (3.5-5.1) Chloride Level 100mmol/L (98-107) Carbon Dioxide Level 38mmol/L (21-32) Anion Gap 6 (6-14) Blood Urea Nitrogen 52mg/dL (7-20) Creatinine 2.9mg/dL (0.6-1.0) Estimated GFR (Cockcroft-Gault) 17.4 BUN/Creatinine Ratio 18 (6-20) Glucose Level 121mg/dL (70-99) Calcium Level 8.7mg/dL (8.5-10.1) Total Bilirubin 0.5mg/dL (0.2-1.0) Aspartate Amino Transf (AST/SGOT) 41U/L (15-37) Alanine Aminotransferase (ALT/SGPT) 26U/L (14-59) Alkaline Phosphatase 158U/L (46-116) Total Protein 6.6g/dL (6.4-8.2) Albumin 2.7g/dL (3.4-5.0) Albumin/Globulin Ratio 0.7 (1.0-1.7) Micro Micro Microbiology 12/21/16 Blood Culture - Preliminary, Resulted NO GROWTH AFTER 3 DAYS 12/22/16 Gram Stain - Final, Complete Review of Systems Constitutional: yes: alert, oriented, weakness Ears/Nose/Throat: Yes: no symptom reported Pulmonary: Yes no symptom reported Cardiovascular: Yes no symptom reported Gastrointestional: Yes: no symptom reported Musculoskeletal: Yes: foot pain Skin: Yes no symptom reported Physical Exam General Appearance: no apparent distress, GCS Skin: warm Respiratory: decreased breath sounds Heart: S1S2, RRR Abdomen: soft Extremities: pulses present Neurology: alert Musculoskeletal: Other Assessment Assessment IMP FOOT WOUND/ABSCESS DM II CKD STAGE 3 WITH CR OF ABOUT 2.2 MILD KENDAL WITH CR UP TO 2.9 MILD HYPOKALEMIA-RESOLVED PLAN IVF'S DECREASE TORSEMIDE TO 40 DAILY REPLACE K NEEDED ANTIBIOTICS D/W ATTENDING SARA RUIZ MD Dec 25, 2016 11:00
[2016-12-25] MEDS: METRONIDAZOLE 500 MG TABLET. PO SCH ×2 (11:21→20:47)
[2016-12-25] MEDS: IV NORMAL SALINE 1000ML BAG 1,000 ML IV SCH ×2 (11:25→20:13)
[2016-12-25] MEDS: DOCUSATE SODIUM 100 MG CAPSULE PO PRN (20:47)
[2016-12-25] MEDS: MONTELUKAST SODIUM 10 MG TABLET. PO SCH (20:47)
[2016-12-25] MEDS: ATORVASTATIN CALCIUM 40 MG TABLET. PO SCH (20:47)
[2016-12-26] MEDS: HYDROMORPHONE 2 MG/ML VIAL. IV PRN ×5 (01:03→21:42)
[2016-12-26 03:10] VITALS: BP 98/65
[2016-12-26 04:19] LABS: BASO # 0.1 x10^3/uL (0.0-0.2); BASO % 1 % (0-3); EOS % 5 % (0-3); HEMATOCRIT 39.5 % (36.0-47.0); HEMOGLOBIN 12.7 g/dL (12.0-15.5); LYMPH # 1.2 x10^3/uL (1.0-4.8); LYMPH % 13 % (24-48); MEAN CORPUSCULAR HEMOGLOBIN 29 pg (25-35); MEAN CORPUSCULAR HGB CONC 32 g/dL (31-37); MEAN CORPUSCULAR VOLUME 89 fL (79-100); MONO % 7 % (0-9); NEUT % 75 % (31-73); PLATELET COUNT 215 x10^3/uL (140-400); RED BLOOD COUNT 4.45 x10^6/uL (3.50-5.40); RED CELL DISTRIBUTION WIDTH 18.3 % (11.5-14.5); WHITE BLOOD COUNT 9.5 x10^3/uL (4.0-11.0)
[2016-12-26 04:39] LABS: CREATININE 2.7 mg/dL (0.6-1.0); GFR 18.9; POTASSIUM 4.1 mmol/L (3.5-5.1)
[2016-12-26] MEDS: IV NORMAL SALINE 1000ML BAG 1,000 ML IV SCH ×2 (05:49→16:49)
[2016-12-26 07:55] VITALS: BP 117/66
[2016-12-26] MEDS: INSULIN ASPART 300 UNITS/3 ML INSULN.PEN SQ SCH ×6 (08:00→17:53)
[2016-12-26] MEDS: METRONIDAZOLE 500 MG TABLET. PO SCH (08:47)
[2016-12-26] MEDS: PANTOPRAZOLE 40 MG TABLET. PO SCH (08:47)
[2016-12-26] MEDS: TORSEMIDE 20 MG TABLET. PO SCH (08:48)
[2016-12-26] MEDS: BISACODYL 5 MG TABLET.DR. PO PRN (08:48)
[2016-12-26] MEDS: DOCUSATE SODIUM 100 MG CAPSULE PO PRN ×2 (08:49→13:05)
[2016-12-26] MEDS: LINEZOLID 600 MG TABLET PO SCH ×2 (08:49→21:42)
[2016-12-26] MEDS: CARVEDILOL 3.125 MG TABLET PO SCH ×2 (08:49→16:56)
[2016-12-26] MEDS: POTASSIUM CHLORIDE 20 MEQ TABLET.ER. PO SCH (08:50)
[2016-12-26] MEDS: POLYETHYLENE GLYCOL 3350 17 GM PACKET. PO SCH (08:50)
[2016-12-26] MEDS: SPIRONOLACTONE 25 MG TABLET PO SCH (08:51)
[2016-12-26] MEDS: ASCORBIC ACID 500 MG TABLET PO SCH (08:57)
[2016-12-26] MEDS: ASPIRIN ENTERIC COATED 81 MG TABLET.DR. PO SCH (08:57)
[2016-12-26] MEDS: APIXABAN 5 MG TABLET. PO SCH ×2 (08:57→21:42)
[2016-12-26] MEDS: FENTANYL 50MCG/HR PATCH. TD SCH (09:00)
[2016-12-26] MEDS: INSULIN DETEMIR 300 UNITS/3 ML INSULN.PEN. SQ SCH ×2 (09:13→21:00)
[2016-12-26] MEDS: IPRATRPIUM/ALBUTEROL 0.5/2.5MG 3 ML NEBU. NEB SCH ×4 (09:20→18:17)
--- NOTE | 2016-12-26 09:38 | PDOC ---
Infectious Disease Note Subjective Subjective c/o mild right foot pain ROS ROS GEN: Denies fevers, chills, sweats CV: Denies chest pain RESP: Denies shortness of air, cough GI: Denies n/v/d Vital Sign Vital Signs Vital Signs Date Time Temp Pulse Resp B/P Pulse Ox O2 Delivery O2 Flow Rate FiO2 12/26/16 09:21 93 Nasal Cannula 3.0 12/26/16 09:17 18 12/26/16 08:49 85 117/66 12/26/16 07:55 97.6 97.6 Physical Exam PHYSICAL EXAM GENERAL: Propped up in bed, NAD HEENT: Oral cavity pink, no lesions. missing teeth NECK: Supple LUNGS: Clear HEART: S1S2, no gallop, no murmur ABD: Obese, soft, NT EXT: BLE edema. 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 (12/23). clean Labs Lab Laboratory Tests Test 12/25/16 11:28 12/25/16 17:45 12/25/16 18:28 12/25/16 20:46 Glucose (Fingerstick) 164mg/dL (70-99) 85mg/dL (70-99) 108mg/dL (70-99) 111mg/dL (70-99) Test 12/26/16 03:50 12/26/16 08:39 White Blood Count 9.5x10^3/uL (4.0-11.0) Red Blood Count 4.45x10^6/uL (3.50-5.40) Hemoglobin 12.7g/dL (12.0-15.5) Hematocrit 39.5% (36.0-47.0) Mean Corpuscular Volume 89fL (79-100) Mean Corpuscular Hemoglobin 29pg (25-35) Mean Corpuscular Hemoglobin Concent 32g/dL (31-37) Red Cell Distribution Width 18.3% (11.5-14.5) Platelet Count 215x10^3/uL (140-400) Neutrophils (%) (Auto) 75% (31-73) Lymphocytes (%) (Auto) 13% (24-48) Monocytes (%) (Auto) 7% (0-9) Eosinophils (%) (Auto) 5% (0-3) Basophils (%) (Auto) 1% (0-3) Neutrophils # (Auto) 7.1x10^3uL (1.8-7.7) Lymphocytes # (Auto) 1.2x10^3/uL (1.0-4.8) Monocytes # (Auto) 0.7x10^3/uL (0.0-1.1) Eosinophils # (Auto) 0.4x10^3/uL (0.0-0.7) Basophils # (Auto) 0.1x10^3/uL (0.0-0.2) Sodium Level 144mmol/L (136-145) Potassium Level 4.1mmol/L (3.5-5.1) Chloride Level 101mmol/L (98-107) Carbon Dioxide Level 36mmol/L (21-32) Anion Gap 7 (6-14) Blood Urea Nitrogen 50mg/dL (7-20) Creatinine 2.7mg/dL (0.6-1.0) Estimated GFR (Cockcroft-Gault) 18.9 Glucose Level 127mg/dL (70-99) Calcium Level 9.0mg/dL (8.5-10.1) Glucose (Fingerstick) 123mg/dL (70-99) Micro BLOOD CULTURE Preliminary NO GROWTH AFTER 4 DAYS Objective Assessment Right foot cellulitis Right foot abscess - s/p I and D, 12/22 - vac in place. MRSA. -No bony involvement per op note Multiple abx allergies KENDAL on CKD DVT RLE Plan Plan of Care Cont Zyvox to po thru 01/04 Flagyl 500 mg po BID for 7 days Leg elevation Supportive care Attending Co-Sign The patient was seen and interviewed as well as examined at the bedside. The chart was reviewed. The case was discussed. Agree with the plan of care. JACOBO SWIFT APRN Dec 26, 2016 09:38 MILKA MOSQUEDA MD Dec 26, 2016 13:12
[2016-12-26 10:13] VITALS: BP 110/73
--- NOTE | 2016-12-26 11:20 | PDOC ---
Renal-Progress Notes Subjective Notes Notes NO NEW COMPLAINTS History of Present Illness Hx of present illness STABLE Vitals Vitals Vital Signs Date Time Temp Pulse Resp B/P Pulse Ox O2 Delivery O2 Flow Rate FiO2 12/26/16 10:13 97.8 105 20 110/73 95 Nasal Cannula 2.0 97.8 Weight Weight [ ] I.O. Intake and Output Intake and Output 12/26/16 07:00 Intake Total 2280 ml Output Total 1950 ml Balance 330 ml Intake Oral 1280 ml IV Total 1000 ml Output Urine Total 1950 ml Labs Labs Laboratory Tests Test 12/25/16 11:28 12/25/16 17:45 12/25/16 18:28 12/25/16 20:46 Glucose (Fingerstick) 164mg/dL (70-99) 85mg/dL (70-99) 108mg/dL (70-99) 111mg/dL (70-99) Test 12/26/16 03:50 12/26/16 08:39 White Blood Count 9.5x10^3/uL (4.0-11.0) Red Blood Count 4.45x10^6/uL (3.50-5.40) Hemoglobin 12.7g/dL (12.0-15.5) Hematocrit 39.5% (36.0-47.0) Mean Corpuscular Volume 89fL (79-100) Mean Corpuscular Hemoglobin 29pg (25-35) Mean Corpuscular Hemoglobin Concent 32g/dL (31-37) Red Cell Distribution Width 18.3% (11.5-14.5) Platelet Count 215x10^3/uL (140-400) Neutrophils (%) (Auto) 75% (31-73) Lymphocytes (%) (Auto) 13% (24-48) Monocytes (%) (Auto) 7% (0-9) Eosinophils (%) (Auto) 5% (0-3) Basophils (%) (Auto) 1% (0-3) Neutrophils # (Auto) 7.1x10^3uL (1.8-7.7) Lymphocytes # (Auto) 1.2x10^3/uL (1.0-4.8) Monocytes # (Auto) 0.7x10^3/uL (0.0-1.1) Eosinophils # (Auto) 0.4x10^3/uL (0.0-0.7) Basophils # (Auto) 0.1x10^3/uL (0.0-0.2) Sodium Level 144mmol/L (136-145) Potassium Level 4.1mmol/L (3.5-5.1) Chloride Level 101mmol/L (98-107) Carbon Dioxide Level 36mmol/L (21-32) Anion Gap 7 (6-14) Blood Urea Nitrogen 50mg/dL (7-20) Creatinine 2.7mg/dL (0.6-1.0) Estimated GFR (Cockcroft-Gault) 18.9 Glucose Level 127mg/dL (70-99) Calcium Level 9.0mg/dL (8.5-10.1) Glucose (Fingerstick) 123mg/dL (70-99) Micro Micro Microbiology 12/21/16 Blood Culture - Preliminary, Resulted NO GROWTH AFTER 4 DAYS 12/22/16 Gram Stain - Final, Complete Review of Systems Constitutional: yes: alert, oriented, weakness Ears/Nose/Throat: Yes: no symptom reported Pulmonary: Yes no symptom reported Cardiovascular: Yes no symptom reported Gastrointestional: Yes: no symptom reported Musculoskeletal: Yes: foot pain Skin: Yes no symptom reported Physical Exam General Appearance: no apparent distress, GCS Skin: warm Respiratory: decreased breath sounds Heart: S1S2, RRR Abdomen: soft Extremities: pulses present Neurology: alert Musculoskeletal: Other Assessment Assessment IMP FOOT WOUND/ABSCESS DM II CKD STAGE 3 WITH CR OF ABOUT 2.2 MILD KENDAL WITH CR IMPROVING TO 2.7 MILD HYPOKALEMIA-RESOLVED PLAN IVF'S TO CONTINUE CONT TORSEMIDE TO 40 DAILY ANTIBIOTICS D/W ATTENDING SARA RUIZ MD Dec 26, 2016 11:19
--- NOTE | 2016-12-26 12:20 | PDOC ---
PROGRESS NOTES Subjective Subjective no new problems Objective Objective Vital Signs Date Time Temp Pulse Resp B/P Pulse Ox O2 Delivery O2 Flow Rate FiO2 12/26/16 10:13 97.8 105 20 110/73 95 Nasal Cannula 2.0 97.8 Intake and Output 12/26/16 07:00 Intake Total 2280 ml Output Total 1950 ml Balance 330 ml Intake Oral 1280 ml IV Total 1000 ml Output Urine Total 1950 ml Physical Exam Abdomen: Normal bowel sounds, No tenderness Heart: Regular rate, Normal S1 Extremities: No clubbing, Other (RIGHT FOOT DORSUM REDNESS AND WOUND VAC IN PLACE) General: Alert, Oriented X3, Cooperative, No acute distress HEENT: Atraumatic, EOMI Lungs: Clear to auscultation, Normal air movement MUSCULOSKELETAL: No deformity Neuro: Normal speech Psych/Mental Status: Mental status NL, Mood NL COMMENT rt foot wound vac Diagnosis Problem List Problems Medical Problems: (1) DM (diabetes mellitus) Status: Acute (2) Sepsis Status: Acute (3) Wound infection Status: Acute Assessment: ac on crf 1. abscess with cellulitis R foot/sepsis S/P ID 12/23/16 2. DVT RLE 12/11/16 on Eliquis with h/o PE, DVT RLE & IVC filter 3. CKD III Cr range 1.9-2.4 no ARF or KENDAL 4. chronic CHF systolic EF 30-35% not acute 5. DM II with neuropathy, PVD, chronic insulin use 6. anxiety/depression 7. HTN 8. hyperlipidemia 9. CAD with h/o OK and PCI with stent placed 10. GERD PLAN: spoke with renal continue iv fluids. hold off on discharge until wednesday. abscess/infected R foot Levaquin/flagyl/vanc dosed in ED Lactic acid 4.4 -(approximately 4L IVF administered) 12/22 2.4 ortho consult XR foot negative niels involvement ID consult-Meropenem IV/zyvox IV /diflucan IV surgery: ID and wound vac placement 12/22 weight bearing to transfer only per Dr. Robles neg anaerobes, coag neg staph + PICC placed 12/23/16 ARF taking zaroxlyn 2.5mg bid since Wednesday + chronic torsemide 100mg daily 07/18/16 BUN 29 Cr 1.9 Admit BUN 40 12/25 52 Cr 2.4 2.7 K 4.4 3.8 Stop zaroxlyn Replace potassium 20 meq po x 1 12/22 No IVF at this time-going to surgery and 4L already given-eval in AM 12/22 consult renal Not ARF per nephrology CKD III Cr range 1.9-2.4 Replace K 20meq x1 12/24/16 CHF Admit weight 281.37 0 12/25 285# IO Daily weight BNP 1337-secondary to ARF, not acute CHF CXR clear Coreg 6.25 in addition to Aldactazide 12.5mg initiated 12/24/16 Decrease Coreg to 3.125mg bid 12/24 Low BP not sepsis SBP 90s DVT RLE Eliquis 5mg bid Hold since admit Restart this evening after surgery (per Dr. Robles)_ DM II FSBS/SSI Levemir 30u bid Novolog 15u tid ac SSI low intensity BS 113-182 Levemir 60u bid 12/22 Novolog 35u tid ac 12/22 Decrease Novolog to 30u TID ac 12/24 h/o hypercapnic respiratory failure with narcotics Last admission Dilaudid 2-4mg IV q3hr prn post op-continue that this admission staff advised of risk with narcotic meds with respiratory status. DVT/GI prophylaxis Eliquis PPI Assessment Assessment D/w - creatinine 2.9- pt encouraged to drink more fluids. start IV fluids.Discharge to SNF tomorrow if better. The patient was seen and examined by me. Chart reviewed and plan of care formulated. Discussed with, reviewed and agree with WOOD VENEER TAPER's notes, plan of care and orders with modifications as necessary. For more details regarding further plans, please refer to the orders. Problems: Plan Plan of Care Problems Medical Problems: (1) DM (diabetes mellitus) Status: Acute (2) Sepsis Status: Acute (3) Wound infection Status: Acute Comment Review of Relevant I have reviewed the following items melvi (where applicable) has been applied. Labs Laboratory Tests Test 12/25/16 17:45 12/25/16 18:28 12/25/16 20:46 12/26/16 03:50 Glucose (Fingerstick) 85mg/dL (70-99) 108mg/dL (70-99) 111mg/dL (70-99) White Blood Count 9.5x10^3/uL (4.0-11.0) Red Blood Count 4.45x10^6/uL (3.50-5.40) Hemoglobin 12.7g/dL (12.0-15.5) Hematocrit 39.5% (36.0-47.0) Mean Corpuscular Volume 89fL (79-100) Mean Corpuscular Hemoglobin 29pg (25-35) Mean Corpuscular Hemoglobin Concent 32g/dL (31-37) Red Cell Distribution Width 18.3% (11.5-14.5) Platelet Count 215x10^3/uL (140-400) Neutrophils (%) (Auto) 75% (31-73) Lymphocytes (%) (Auto) 13% (24-48) Monocytes (%) (Auto) 7% (0-9) Eosinophils (%) (Auto) 5% (0-3) Basophils (%) (Auto) 1% (0-3) Neutrophils # (Auto) 7.1x10^3uL (1.8-7.7) Lymphocytes # (Auto) 1.2x10^3/uL (1.0-4.8) Monocytes # (Auto) 0.7x10^3/uL (0.0-1.1) Eosinophils # (Auto) 0.4x10^3/uL (0.0-0.7) Basophils # (Auto) 0.1x10^3/uL (0.0-0.2) Sodium Level 144mmol/L (136-145) Potassium Level 4.1mmol/L (3.5-5.1) Chloride Level 101mmol/L (98-107) Carbon Dioxide Level 36mmol/L (21-32) Anion Gap 7 (6-14) Blood Urea Nitrogen 50mg/dL (7-20) Creatinine 2.7mg/dL (0.6-1.0) Estimated GFR (Cockcroft-Gault) 18.9 Glucose Level 127mg/dL (70-99) Calcium Level 9.0mg/dL (8.5-10.1) Test 12/26/16 08:39 Glucose (Fingerstick) 123mg/dL (70-99) Microbiology 12/21/16 Blood Culture - Preliminary, Resulted NO GROWTH AFTER 4 DAYS 12/22/16 Gram Stain - Final, Complete Medications Current Medications Torsemide (Demadex) 40 mg DAILY PO Last administered on 12/26/16t 08:48; Start 12/26/16 at 09:00 Vitals/I & O Vital Sign - Last 24 Hours 12/25/16 12/25/16 12/25/16 12/25/16 13:57 14:27 15:00 16:00 Temp 97.5 97.5 Pulse 85 Resp 20 B/P 103/69 Pulse Ox 92 94 94 O2 Delivery Nasal Cannula Room Air Nasal Cannula O2 Flow Rate 2.0 2.0 2.0 2.0 12/25/16 12/25/16 12/25/16 12/25/16 17:00 19:12 19:12 19:55 Temp 97.3 98.0 97.3 98.0 Pulse 85 70 84 Resp 20 20 B/P 103/69 100/97 102/81 103/65 Pulse Ox 21 93 O2 Delivery Room Air Nasal Cannula O2 Flow Rate 2.0 12/25/16 12/25/16 12/25/16 12/26/16 20:00 20:36 23:25 03:10 Temp 97.8 97.7 97.8 97.7 Pulse 84 104 Resp 18 B/P 128/72 98/65 Pulse Ox 95 98 97 O2 Delivery Nasal Cannula Nasal Cannula Nasal Cannula Nasal Cannula O2 Flow Rate 3.0 2.0 2.0 2.0 12/26/16 12/26/16 12/26/16 12/26/16 07:55 08:00 08:49 09:17 Temp 97.6 97.6 Pulse 85 85 Resp 18 B/P 117/66 117/66 Pulse Ox 98 O2 Delivery Nasal Cannula Nasal Cannula Room Air O2 Flow Rate 2.0 2.0 12/26/16 12/26/16 09:21 10:13 Temp 97.8 97.8 Pulse 105 Resp 20 B/P 110/73 Pulse Ox 93 95 O2 Delivery Nasal Cannula Nasal Cannula O2 Flow Rate 3.0 2.0 Intake and Output 12/25/16 12/25/16 12/26/16 15:00 23:00 07:00 Intake Total 2280 ml Output Total 350 ml 1600 ml Balance -350 ml 680 ml ZINA MATT MD Dec 26, 2016 12:19
[2016-12-26 14:22] VITALS: BP 94/68
[2016-12-26] MEDS: ONDANSETRON PF 4 MG/2 ML VIAL. IV PRN (16:09)
[2016-12-26] MEDS ORDERED: FENTANYL 50MCG/HR PATCH. TD SCH (19:30)
[2016-12-26 19:50] VITALS: BP 92/64
[2016-12-26] MEDS: ATORVASTATIN CALCIUM 40 MG TABLET. PO SCH (21:42)
[2016-12-26] MEDS: MONTELUKAST SODIUM 10 MG TABLET. PO SCH (21:42)
[2016-12-26 23:34] VITALS: BP 100/63
[2016-12-27] VITALS (7 sets, daily range): BP systolic 97–106; BP diastolic 55–74
[2016-12-27] MEDS: ACETAMINOPHEN 325 MG TABLET. PO PRN (01:33)
[2016-12-27] MEDS: HYDROMORPHONE 2 MG/ML VIAL. IV PRN ×5 (05:41→21:19)
[2016-12-27 06:30] LABS: CALCIUM 8.9 mg/dL (8.5-10.1); CREATININE 2.2 mg/dL (0.6-1.0); GFR 23.9; POTASSIUM 3.6 mmol/L (3.5-5.1)
[2016-12-27] MEDS: INSULIN ASPART 300 UNITS/3 ML INSULN.PEN SQ SCH ×6 (08:00→17:00)
[2016-12-27] MEDS: IPRATRPIUM/ALBUTEROL 0.5/2.5MG 3 ML NEBU. NEB SCH ×4 (08:11→19:58)
[2016-12-27] MEDS ORDERED: FENTANYL 50MCG/HR PATCH. TD SCH (09:00)
[2016-12-27] MEDS: POTASSIUM CHLORIDE 20 MEQ TABLET.ER. PO SCH (09:45)
[2016-12-27] MEDS: ASCORBIC ACID 500 MG TABLET PO SCH (09:45)
[2016-12-27] MEDS: ASPIRIN ENTERIC COATED 81 MG TABLET.DR. PO SCH (09:45)
[2016-12-27] MEDS: POLYETHYLENE GLYCOL 3350 17 GM PACKET. PO SCH (09:45)
[2016-12-27] MEDS: APIXABAN 5 MG TABLET. PO SCH ×2 (09:46→21:15)
[2016-12-27] MEDS: LINEZOLID 600 MG TABLET PO SCH ×2 (09:46→21:15)
[2016-12-27] MEDS: DOCUSATE SODIUM 100 MG CAPSULE PO PRN (09:46)
[2016-12-27] MEDS: SPIRONOLACTONE 25 MG TABLET PO SCH (09:46)
[2016-12-27] MEDS: BISACODYL 5 MG TABLET.DR. PO PRN (09:47)
[2016-12-27] MEDS: PANTOPRAZOLE 40 MG TABLET. PO SCH (09:47)
[2016-12-27] MEDS: TORSEMIDE 20 MG TABLET. PO SCH (09:47)
[2016-12-27] MEDS: CARVEDILOL 3.125 MG TABLET PO SCH ×2 (09:48→17:00)
[2016-12-27] MEDS: INSULIN DETEMIR 300 UNITS/3 ML INSULN.PEN. SQ SCH ×2 (10:06→21:23)
--- NOTE | 2016-12-27 10:17 | PDOC ---
Infectious Disease Note Subjective Subjective Pain controlled. little nauseous, but appetite good. No BM several days Denies abdominal discomfort ROS ROS GEN: Denies fevers, chills, sweats CV: Denies chest pain RESP: Denies shortness of air, cough Vital Sign Vital Signs Vital Signs Date Time Temp Pulse Resp B/P Pulse Ox O2 Delivery O2 Flow Rate FiO2 12/27/16 09:51 98 Nasal Cannula 3.0 12/27/16 09:48 106 103/59 12/27/16 08:41 97.2 17 97.2 Physical Exam PHYSICAL EXAM GENERAL: Propped up in bed, NAD HEENT: Oral cavity pink, no lesions. missing teeth NECK: Supple LUNGS: Clear HEART: S1S2, no gallop, no murmur ABD: Obese, soft, NT EXT: BLE edema. 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 (12/23). clean Labs Lab Laboratory Tests Test 12/26/16 16:56 12/26/16 21:06 12/27/16 05:45 12/27/16 08:40 Glucose (Fingerstick) 108mg/dL (70-99) 95mg/dL (70-99) 123mg/dL (70-99) Sodium Level 144mmol/L (136-145) Potassium Level 3.6mmol/L (3.5-5.1) Chloride Level 103mmol/L (98-107) Carbon Dioxide Level 33mmol/L (21-32) Anion Gap 8 (6-14) Blood Urea Nitrogen 48mg/dL (7-20) Creatinine 2.2mg/dL (0.6-1.0) Estimated GFR (Cockcroft-Gault) 23.9 Glucose Level 114mg/dL (70-99) Calcium Level 8.9mg/dL (8.5-10.1) Micro BLOOD CULTURE Preliminary NO GROWTH AFTER 5 DAYS Objective Assessment Right foot cellulitis Right foot abscess - s/p I and D, 12/22 - vac in place. MRSA. -No bony involvement per op note Multiple abx allergies KENDAL on CKD DVT RLE Constipation Plan Plan of Care Cont Zyvox to po thru 01/04 Leg elevation Bowel regimen Supportive care Attending Co-Sign The patient was seen and interviewed as well as examined at the bedside. The chart was reviewed. The case was discussed. Agree with the plan of care. JACOBO SWIFT APRN Dec 27, 2016 10:17 MILKA MOSQUEDA MD Dec 27, 2016 11:30
--- NOTE | 2016-12-27 10:57 | PDOC ---
Renal-Progress Notes Subjective Notes Notes NO NEW COMPLAINTS History of Present Illness Hx of present illness STABLE Vitals Vitals Vital Signs Date Time Temp Pulse Resp B/P Pulse Ox O2 Delivery O2 Flow Rate FiO2 12/27/16 10:36 97.5 102 97/55 96 Nasal Cannula 3.0 97.5 12/27/16 08:41 17 Weight Weight [ ] I.O. Intake and Output Intake and Output 12/27/16 07:00 Intake Total 1600 ml Output Total 5500 ml Balance -3900 ml Intake Oral 600 ml IV Total 1000 ml Output Urine Total 5500 ml Labs Labs Laboratory Tests Test 12/26/16 16:56 12/26/16 21:06 12/27/16 05:45 12/27/16 08:40 Glucose (Fingerstick) 108mg/dL (70-99) 95mg/dL (70-99) 123mg/dL (70-99) Sodium Level 144mmol/L (136-145) Potassium Level 3.6mmol/L (3.5-5.1) Chloride Level 103mmol/L (98-107) Carbon Dioxide Level 33mmol/L (21-32) Anion Gap 8 (6-14) Blood Urea Nitrogen 48mg/dL (7-20) Creatinine 2.2mg/dL (0.6-1.0) Estimated GFR (Cockcroft-Gault) 23.9 Glucose Level 114mg/dL (70-99) Calcium Level 8.9mg/dL (8.5-10.1) Micro Micro Microbiology 12/21/16 Blood Culture - Final, Complete NO GROWTH AFTER 5 DAYS 12/22/16 Gram Stain - Final, Complete Review of Systems Constitutional: yes: alert, oriented, weakness Ears/Nose/Throat: Yes: no symptom reported Pulmonary: Yes no symptom reported Cardiovascular: Yes no symptom reported Gastrointestional: Yes: no symptom reported Musculoskeletal: Yes: foot pain Skin: Yes no symptom reported Physical Exam General Appearance: no apparent distress, GCS Skin: warm Respiratory: decreased breath sounds Heart: S1S2, RRR Abdomen: soft Extremities: pulses present Neurology: alert Musculoskeletal: Other Assessment Assessment IMP FOOT WOUND/ABSCESS DM II CKD STAGE 3 WITH CR OF ABOUT 2.2 MILD KENDAL - RESOLVED MILD HYPOKALEMIA-RESOLVED PLAN DECREASE IVF'S CONT TORSEMIDE TO 40 DAILY ANTIBIOTICS D/W ATTENDING SARA RUIZ MD Dec 27, 2016 10:57
[2016-12-27] MEDS: ONDANSETRON PF 4 MG/2 ML VIAL. IV PRN (10:59)
[2016-12-27] MEDS: IV NORMAL SALINE 1000ML BAG 1,000 ML IV SCH ×2 (12:24→15:45)
--- NOTE | 2016-12-27 14:03 | PDOC ---
PROGRESS NOTES Subjective Subjective feeling better today Objective Objective Vital Signs Date Time Temp Pulse Resp B/P Pulse Ox O2 Delivery O2 Flow Rate FiO2 12/27/16 13:55 96 Nasal Cannula 3.0 12/27/16 10:36 97.5 102 97/55 97.5 12/27/16 08:41 17 Intake and Output 12/27/16 07:00 Intake Total 1600 ml Output Total 5500 ml Balance -3900 ml Intake Oral 600 ml IV Total 1000 ml Output Urine Total 5500 ml Physical Exam Abdomen: Normal bowel sounds, No tenderness Heart: Regular rate, Normal S1 Extremities: No clubbing, Other (RIGHT FOOT DORSUM REDNESS AND WOUND VAC IN PLACE) General: Alert, Oriented X3, Cooperative, No acute distress HEENT: Atraumatic, EOMI Lungs: Clear to auscultation, Normal air movement MUSCULOSKELETAL: No deformity Neuro: Normal speech Psych/Mental Status: Mental status NL, Mood NL COMMENT rt foot wound vac Diagnosis Problem List Problems Medical Problems: (1) DM (diabetes mellitus) Status: Acute (2) Sepsis Status: Acute (3) Wound infection Status: Acute Assessment Assessment Problems: Plan Plan of Care Problems Medical Problems: (1) DM (diabetes mellitus) Status: Acute (2) Sepsis Status: Acute (3) Wound infection Status: Acute Assessment: ac on crf 1. abscess with cellulitis R foot/sepsis S/P ID 12/23/16 2. DVT RLE 12/11/16 on Eliquis with h/o PE, DVT RLE & IVC filter 3. CKD III Cr range 1.9-2.4 no ARF or KENDAL 4. chronic CHF systolic EF 30-35% not acute 5. DM II with neuropathy, PVD, chronic insulin use 6. anxiety/depression 7. HTN 8. hyperlipidemia 9. CAD with h/o ID and PCI with stent placed 10. GERD PLAN:cr 2.2 improving spoke with renal continue iv fluids. hold off on discharge until wednesday. Comment Review of Relevant I have reviewed the following items melvi (where applicable) has been applied. Labs Laboratory Tests Test 12/26/16 16:56 12/26/16 21:06 12/27/16 05:45 12/27/16 08:40 Glucose (Fingerstick) 108mg/dL (70-99) 95mg/dL (70-99) 123mg/dL (70-99) Sodium Level 144mmol/L (136-145) Potassium Level 3.6mmol/L (3.5-5.1) Chloride Level 103mmol/L (98-107) Carbon Dioxide Level 33mmol/L (21-32) Anion Gap 8 (6-14) Blood Urea Nitrogen 48mg/dL (7-20) Creatinine 2.2mg/dL (0.6-1.0) Estimated GFR (Cockcroft-Gault) 23.9 Glucose Level 114mg/dL (70-99) Calcium Level 8.9mg/dL (8.5-10.1) Test 12/27/16 12:23 Glucose (Fingerstick) 155mg/dL (70-99) Microbiology 12/21/16 Blood Culture - Final, Complete NO GROWTH AFTER 5 DAYS 12/22/16 Gram Stain - Final, Complete Medications Current Medications Fentanyl (Duragesic 50mcg/ Hr Patch) 1 patch Q3DAYS TD ; Start 12/26/16 at 19:30 ; Stop 12/26/16 at 20:49; Status DC Fentanyl (Duragesic 50mcg/ Hr Patch) 1 patch Q3DAYS TD Last administered on t 09:50; Start 12/27/16 at 09:00 Vitals/I & O Vital Sign - Last 24 Hours 12/26/16 12/26/16 12/26/16 12/26/16 14:22 16:49 16:56 17:19 Temp 98.2 98.2 Pulse 104 Resp 18 18 18 B/P 94/68 104/65 Pulse Ox 95 O2 Delivery Nasal Cannula Nasal Cannula O2 Flow Rate 2.0 2.0 12/26/16 12/26/16 12/26/16 12/26/16 18:18 19:50 20:00 22:12 Temp 98.2 98.2 Pulse 104 Resp 18 B/P 92/64 Pulse Ox 93 94 95 O2 Delivery Nasal Cannula Nasal Cannula Nasal Cannula Nasal Cannula O2 Flow Rate 3.0 3.0 2.0 3.0 12/26/16 12/27/16 12/27/16 12/27/16 23:34 03:30 07:55 08:11 Temp 98.0 97.7 97.8 98.0 97.7 97.8 Pulse 102 100 102 Resp 17 B/P 100/63 97/70 102/74 Pulse Ox 95 95 96 5 O2 Delivery Nasal Cannula Nasal Cannula Nasal Cannula Nasal Cannula O2 Flow Rate 3.0 3.0 3.0 3.0 12/27/16 12/27/16 12/27/16 12/27/16 08:41 09:48 09:50 09:51 Temp 97.2 97.2 Pulse 106 106 Resp 17 B/P 103/59 103/59 Pulse Ox 98 98 98 O2 Delivery Nasal Cannula Nasal Cannula Nasal Cannula O2 Flow Rate 3.0 3.0 3.0 12/27/16 12/27/16 12/27/16 10:36 11:57 13:55 Temp 97.5 97.5 Pulse 102 B/P 97/55 Pulse Ox 96 96 O2 Delivery Nasal Cannula Nasal Cannula Nasal Cannula O2 Flow Rate 3.0 3.0 3.0 Intake and Output 12/26/16 12/26/16 12/27/16 15:00 23:00 07:00 Intake Total 1600 ml Output Total 4500 ml 1000 ml Balance -4500 ml 600 ml ZINA MATT MD Dec 27, 2016 14:03
[2016-12-27] MEDS: ATORVASTATIN CALCIUM 40 MG TABLET. PO SCH (21:14)
[2016-12-27] MEDS: MONTELUKAST SODIUM 10 MG TABLET. PO SCH (21:14)
[2016-12-28] MEDS: HYDROMORPHONE 2 MG/ML VIAL. IV PRN ×4 (00:37→13:26)
[2016-12-28 03:20] VITALS: BP 103/65
[2016-12-28 05:50] LABS: CALCIUM 9.1 mg/dL (8.5-10.1); CREATININE 2.3 mg/dL (0.6-1.0); GFR 22.7; POTASSIUM 3.6 mmol/L (3.5-5.1)
--- NOTE | 2016-12-28 07:46 | PDOC3 ---
YVONNE LAYNE CIRCUIT BOARD REPAIR TECHNICIAN 12/28/16 0746: IM DISCHARGE & PROGRESS NOTES Date of Admission Date of Admission Date of Admission: Dec 21, 2016 at 14:46 Date of Discharge Date of Discharge 12/28/16 Primary Diagnosis Primary Diagnosis Final Diagnosis 1. abscess with cellulitis R foot MRSA/sepsis S/P ID 12/23/16 2. DVT RLE 12/11/16 on Eliquis with h/o PE, DVT RLE & IVC filter 3. CKD III KENDAL secondary diuretics Cr range 1.9-2.4 4. chronic CHF systolic EF 30-35% not acute 5. DM II with neuropathy, PVD, chronic insulin use 6. anxiety/depression 7. HTN 8. hyperlipidemia 9. CAD with h/o OH and PCI with stent placed 10. GERD 11. chronic LBP 12. h/o hypercapnic/hypoxic respiratory failure with narcotics 13. COPD 14. h/o CVA 15. COPD with remote h/o tobacco abuse 16. n/v due to anxiety resolved 17. urine retention with temporary price, stopped at DCR foot plantar diabetic ulcer non healing with osteomyelitis and h/o recent debridement to bone 06/26 s /p amputation R procedure 4th and 5th toes 07/16/16 18. h/o R foot plantar diabetic ulcer non healing with osteomyelitis ( debridement to bone 06/26 s/p amputation R procedure 4th and 5th toes 07/16/16) 20. morbid obesity 21. JENNA O2 3L NC at hs 22. moderate chronic PCL malnutrition Consults Consults Jose Robles II, MD, Dr., Dr. Procedures Procedures PLAN: abscess/infected R foot Levaquin/flagyl/vanc dosed in ED Lactic acid 4.4 -(approximately 4L IVF administered) 12/22 2.4 ortho consult XR foot negative niels involvement ID consult-Meropenem IV/zyvox IV /diflucan IV surgery: ID and wound vac placement 12/22 weight bearing to transfer only per Dr. Robles neg anaerobes, coag neg staph + PICC placed 12/23/16 ARF taking zaroxlyn 2.5mg bid since Wednesday + chronic torsemide 100mg daily 07/18/16 BUN 29 Cr 1.9 Admit BUN 40 12/25 52 Cr 2.4 2.9 K 4.4 3.8 Stop zaroxlyn Replace potassium 20 meq po x 1 12/22 No IVF at this time-going to surgery and 4L already given-eval in AM 12/22 consult renal Not ARF per nephrology CKD III Cr range 1.9-2.4 Replace K 20meq x1 12/24/16 CHF Admit weight 281.37 0 12/25 285# IO Daily weight BNP 1337-secondary to ARF, not acute CHF CXR clear Coreg 6.25 in addition to Aldactazide 12.5mg initiated 12/24/16 Decrease Coreg to 3.125mg bid 12/24 Low BP not sepsis SBP 90s DVT RLE Eliquis 5mg bid Hold since admit Restart this evening after surgery (per Dr. Robles)_ DM II FSBS/SSI Levemir 30u bid Novolog 15u tid ac SSI low intensity BS 113-182 Levemir 60u bid 12/22 Novolog 35u tid ac 12/22 Decrease Novolog to 30u TID ac 12/24 h/o hypercapnic respiratory failure with narcotics Last admission Dilaudid 2-4mg IV q3hr prn post op-continue that this admission staff advised of risk with narcotic meds with respiratory status. DVT/GI prophylaxis Eliquis PPI For more details regarding further plans, please refer to the orders Labs Labs Laboratory Tests Test 12/25/16 07:39 12/25/16 11:28 12/25/16 17:45 12/25/16 18:28 Glucose (Fingerstick) 119mg/dL (70-99) 164mg/dL (70-99) 85mg/dL (70-99) 108mg/dL (70-99) Test 12/25/16 20:46 12/26/16 03:50 12/26/16 08:39 12/26/16 16:56 Glucose (Fingerstick) 111mg/dL (70-99) 123mg/dL (70-99) 108mg/dL (70-99) White Blood Count 9.5x10^3/uL (4.0-11.0) Red Blood Count 4.45x10^6/uL (3.50-5.40) Hemoglobin 12.7g/dL (12.0-15.5) Hematocrit 39.5% (36.0-47.0) Mean Corpuscular Volume 89fL (79-100) Mean Corpuscular Hemoglobin 29pg (25-35) Mean Corpuscular Hemoglobin Concent 32g/dL (31-37) Red Cell Distribution Width 18.3% (11.5-14.5) Platelet Count 215x10^3/uL (140-400) Neutrophils (%) (Auto) 75% (31-73) Lymphocytes (%) (Auto) 13% (24-48) Monocytes (%) (Auto) 7% (0-9) Eosinophils (%) (Auto) 5% (0-3) Basophils (%) (Auto) 1% (0-3) Neutrophils # (Auto) 7.1x10^3uL (1.8-7.7) Lymphocytes # (Auto) 1.2x10^3/uL (1.0-4.8) Monocytes # (Auto) 0.7x10^3/uL (0.0-1.1) Eosinophils # (Auto) 0.4x10^3/uL (0.0-0.7) Basophils # (Auto) 0.1x10^3/uL (0.0-0.2) Sodium Level 144mmol/L (136-145) Potassium Level 4.1mmol/L (3.5-5.1) Chloride Level 101mmol/L (98-107) Carbon Dioxide Level 36mmol/L (21-32) Anion Gap 7 (6-14) Blood Urea Nitrogen 50mg/dL (7-20) Creatinine 2.7mg/dL (0.6-1.0) Estimated GFR (Cockcroft-Gault) 18.9 Glucose Level 127mg/dL (70-99) Calcium Level 9.0mg/dL (8.5-10.1) Test 12/26/16 21:06 12/27/16 05:45 12/27/16 08:40 12/27/16 12:23 Glucose (Fingerstick) 95mg/dL (70-99) 123mg/dL (70-99) 155mg/dL (70-99) Sodium Level 144mmol/L (136-145) Potassium Level 3.6mmol/L (3.5-5.1) Chloride Level 103mmol/L (98-107) Carbon Dioxide Level 33mmol/L (21-32) Anion Gap 8 (6-14) Blood Urea Nitrogen 48mg/dL (7-20) Creatinine 2.2mg/dL (0.6-1.0) Estimated GFR (Cockcroft-Gault) 23.9 Glucose Level 114mg/dL (70-99) Calcium Level 8.9mg/dL (8.5-10.1) Test 12/27/16 17:08 12/27/16 21:14 12/28/16 04:57 Glucose (Fingerstick) 75mg/dL (70-99) 90mg/dL (70-99) Sodium Level 145mmol/L (136-145) Potassium Level 3.6mmol/L (3.5-5.1) Chloride Level 103mmol/L (98-107) Carbon Dioxide Level 35mmol/L (21-32) Anion Gap 7 (6-14) Blood Urea Nitrogen 46mg/dL (7-20) Creatinine 2.3mg/dL (0.6-1.0) Estimated GFR (Cockcroft-Gault) 22.7 Glucose Level 126mg/dL (70-99) Calcium Level 9.1mg/dL (8.5-10.1) Medications Medications Medications reviewed and reconciled for discharge. Brief hospital course Brief hospital course This 46 year old female who presented with R foot wound/infection. was admitted. The following is a summary of her treatment: PLAN: abscess/infected R foot Levaquin/flagyl/vanc dosed in ED Lactic acid 4.4 -(approximately 4L IVF administered) 12/22 2.4 ortho consult XR foot negative niels involvement ID consult-Meropenem IV/zyvox IV /diflucan IV surgery: ID and wound vac placement 12/22 weight bearing to transfer only per Dr. Robles neg anaerobes, coag neg staph +, MRSA + PICC placed 12/23/16 Zyvox until 01/04 nausea-Flagyl stopped. ARF taking zaroxlyn 2.5mg bid since Wednesday prior to admit + chronic torsemide 100mg daily 07/18/16 BUN 29 Cr 1.9 Admit BUN 40 12/28 46 Cr 2.4 2.3 K 4.4 3.6 Stop zaroxlyn Replace potassium 20 meq po x 1 12/22 No IVF at this time-going to surgery and 4L already given-eval in AM 12/22 consult renal Not ARF per nephrology CKD III Cr range 1.9-2.4 Replace K 20meq x1 12/24/16 IVF NS 50cc/hr since Wednesday Torsemide decreased to 40mg daily CHF Admit weight 281.37 12/28 284.12 IO Daily weight BNP 1337-secondary to ARF, not acute CHF CXR clear Coreg 6.25 in addition to Aldactazide 12.5mg initiated 12/24/16 Decrease Coreg to 3.125mg bid 12/24 Low BP r/t medications SBP 90s hypotension improved DVT RLE Eliquis 5mg bid Hold since admit Restart this evening after surgery (per Dr. Robles)_ DM II FSBS/SSI Levemir 30u bid Novolog 15u tid ac SSI low intensity BS 75-135 Levemir 60u bid 12/22 Novolog 35u tid ac 12/22 Decrease Novolog to 15u TID ac 12/28 at discharge h/o hypercapnic respiratory failure with narcotics Last admission Dilaudid 2-4mg IV q3hr prn post op-continue that this admission staff advised of risk with narcotic meds with respiratory status. DVT/GI prophylaxis Eliquis PPI For more details regarding the past history, family history, social history, surgical history and other details, please refer to History and Physical. She will be discharged to [facility]. Please see discharge orders. Subjective slight nausea this morning. Objective alert, no distress Vitals Vital Signs Date Time Temp Pulse Resp B/P Pulse Ox O2 Delivery O2 Flow Rate FiO2 12/28/16 03:35 95 Nasal Cannula 2.0 12/28/16 03:20 98.1 105 18 103/65 98.1 Physical Exam General appearance - alert,well appearing, and in mild distress Mental Status - alert, oriented to person, place, and time, affect appropriate to mood Head - normal Chest - clear to auscultation, no wheezes, rales or rhonchi, symmetric air entry Heart - S1 and S2 normal Abdomen - soft, nontender, nondistended, BS+ Neurological - no acute focal neurological deficits noted Musculoskeletal - no muscular tenderness noted Extremities - ++ swelling RLE, wound vac R foot. venous stasis changes bilateral LE, edema worse bilateral LE. Skin - warm and dry Medications Medications reviewed. Allergy Allergies Coded Allergies Type Severity Reaction Last Updated Verified Sulfa (Sulfonamide Antibiotics) Allergy Severe causes throat to swell 07/15/16 Yes amoxicillin Allergy Severe causes swelling of throat 07/15/16 Yes clarithromycin Allergy Severe causes throat to swell 07/15/16 Yes codeine Allergy Severe "closed up my throat and itching" 07/15/16 Yes hydrocodone Allergy Severe "closes up my throat and itching" 03/28/15 Yes Penicillins Allergy Intermediate causes swelling of throat 03/28/15 Yes oxycodone Allergy Intermediate 06/08/16 Yes tramadol Allergy Intermediate Nausea and Vomiting 07/01/16 Yes Follow up Admit to Dr. Johnson [facility]position[facility] facility (PT OT LOS <30) Comments Discharge Management - 35 minutes. For other details please refer to discharge instructions CHELE JOHNSON MD 12/28/16 0956: IM DISCHARGE & PROGRESS NOTES Brief hospital course Comments The patient was seen and examined by me. Chart reviewed and plan of care formulated. Discussed with, reviewed and agree with CIVIL PROCESS SERVER's notes, plan of care and orders with modifications as necessary. Discharge Management - 35 minutes. YVONNE LAYNE APRN Dec 28, 2016 07:46 CHELE JOHNSON MD Dec 28, 2016 09:56
[2016-12-28] MEDS ORDERED: TORS20TA PO (07:50)
[2016-12-28 07:55] VITALS: BP 102/62
[2016-12-28] MEDS: INSULIN ASPART 300 UNITS/3 ML INSULN.PEN SQ SCH ×4 (08:00→12:00)
[2016-12-28] MEDS: IPRATRPIUM/ALBUTEROL 0.5/2.5MG 3 ML NEBU. NEB SCH ×2 (08:42→12:07)
--- NOTE | 2016-12-28 08:58 | PDOC ---
Infectious Disease Note Subjective Subjective Pain controlled. little nauseous, but appetite good. No BM several days Denies abdominal discomfort ROS ROS GEN: Denies fevers, chills, sweats HEENT: Denies blurred vision, sore throat CV: Denies chest pain RESP: Denies shortness of air, cough GI: Denies n/v/d NEURO: Denies confusion, dizziness MSK: Denies weakness, joint pain/swelling Vital Sign Vital Signs Vital Signs Date Time Temp Pulse Resp B/P Pulse Ox O2 Delivery O2 Flow Rate FiO2 12/28/16 08:42 98 Nasal Cannula 3.0 12/28/16 07:55 97.9 100 18 102/62 97.9 Physical Exam PHYSICAL EXAM GENERAL: NAD, Alert HEENT: PERRL, OC/OP NECK: Supple, no JVD, no LN LUNGS: Clear HEART: S1S2, no gallop, no murmur ABD: Soft, NT, no organomegaly, no rebound EXT: No edema, no cyanosis RAND BUTTER: Alert, oriented x 3, no focal neurologic deficit SKIN: No rash IV: ok Labs Lab Laboratory Tests Test 12/27/16 12:23 12/27/16 17:08 12/27/16 21:14 12/28/16 04:57 Glucose (Fingerstick) 155mg/dL (70-99) 75mg/dL (70-99) 90mg/dL (70-99) Sodium Level 145mmol/L (136-145) Potassium Level 3.6mmol/L (3.5-5.1) Chloride Level 103mmol/L (98-107) Carbon Dioxide Level 35mmol/L (21-32) Anion Gap 7 (6-14) Blood Urea Nitrogen 46mg/dL (7-20) Creatinine 2.3mg/dL (0.6-1.0) Estimated GFR (Cockcroft-Gault) 22.7 Glucose Level 126mg/dL (70-99) Calcium Level 9.1mg/dL (8.5-10.1) Objective Assessment Right foot cellulitis Right foot abscess - s/p I and D, 12/22 - vac in place. MRSA. -No bony involvement per op note Multiple abx allergies KENDAL on CKD DVT RLE Constipation Plan Plan of Care Cont Zyvox to po thru 01/04 Leg elevation Supportive care ok to d/c to SNF d/w Primary MILKA MOSQUEDA MD Dec 28, 2016 08:58
[2016-12-28] MEDS: ONDANSETRON PF 4 MG/2 ML VIAL. IV PRN (09:25)
[2016-12-28] MEDS: ASCORBIC ACID 500 MG TABLET PO SCH (09:26)
[2016-12-28] MEDS: APIXABAN 5 MG TABLET. PO SCH (09:26)
[2016-12-28] MEDS: ASPIRIN ENTERIC COATED 81 MG TABLET.DR. PO SCH (09:27)
[2016-12-28] MEDS: POTASSIUM CHLORIDE 20 MEQ TABLET.ER. PO SCH (09:27)
[2016-12-28] MEDS: CARVEDILOL 3.125 MG TABLET PO SCH (09:27)
[2016-12-28] MEDS: DOCUSATE SODIUM 100 MG CAPSULE PO PRN (09:27)
[2016-12-28] MEDS: PANTOPRAZOLE 40 MG TABLET. PO SCH (09:28)
[2016-12-28] MEDS: POLYETHYLENE GLYCOL 3350 17 GM PACKET. PO SCH (09:28)
[2016-12-28] MEDS: SPIRONOLACTONE 25 MG TABLET PO SCH (09:28)
[2016-12-28] MEDS: LINEZOLID 600 MG TABLET PO SCH (09:28)
[2016-12-28] MEDS: TORSEMIDE 20 MG TABLET. PO SCH (09:29)
--- NOTE | 2016-12-28 09:34 | PDOC ---
SUBJECTIVE ROS F/up manuel / CKD III/ IV OBJECTIVE Vital Signs Vital Signs Date Time Temp Pulse Resp B/P Pulse Ox O2 Delivery O2 Flow Rate FiO2 12/28/16 08:42 98 Nasal Cannula 3.0 12/28/16 07:55 97.9 100 18 102/62 97.9 I & 0 Intake and Output 12/28/16 07:00 Intake Total 3950 ml Output Total 2900 ml Balance 1050 ml Intake Oral 2900 ml IV Total 1050 ml Output Urine Total 2900 ml PHYSICAL EXAM Physical Exam GEN: Awake, Oriented x 3, In no distress EYES: Vision Unchanged, Conjunctiva Normal EN: No EN Drainage, Mucous Membranes moist NECK: no JVD, no JVP, Supple, no Thyromegaly; Thick Neck CVS: S1S2, ? Murmur, No Gallop, No Rub,+2 Edema madeline ion the Rt. RESP: no Rales, n Rhonchi,o Acc. Muscle Use GI: BS + ve, NO Bruit, Non Tender, Non Distended; obese : no CVA tenderness, no Suprapubic Tenderness DIAGNOSIS/ASSESSMENT Assessment & Plan CKD III/ IV: Creat is back close to baseilne of 2.2. Current fluid and E-lyte status does not necessitate emergent need for dialysis. Will re-evaluate for dialysis in the am Edema - remains on home doses of Diuretics for fluid managment. Some localized edema due to Foot Wound also. FOOT WOUND/ABSCESS - now s/p surgery for same with wound vac in place DM II with DM NEphroapthy Would benefit from weekly Creat at HCR checks given infection, diuretics use and ? contd Abx use. Problems: COMMENT/RELEVANT DATA Meds Current Medications Medications (Trade) Dose Ordered Sig/Ant Start Time Stop Time Status Last Admin Dose Admin Acetaminophen (Tylenol) 650 mg PRN Q6HRS PRN 12/23/16 07:45 12/27/16 01:33 650 MG Albuterol/ Ipratropium (Duoneb) 3 ml RTQID 12/22/16 21:45 12/28/16 08:42 3 ML Apixaban (Eliquis) 5 mg BID 12/22/16 09:00 12/27/16 21:15 5 MG Ascorbic Acid (Vitamin C) 500 mg DAILY 12/22/16 09:00 12/27/16 09:45 500 MG Aspirin (Ecotrin) 81 mg DAILY 12/22/16 09:00 12/27/16 09:45 81 MG Atorvastatin Calcium (Lipitor) 40 mg HS 12/21/16 22:45 12/27/16 21:14 40 MG Bisacodyl (Dulcolax Tab) 10 mg PRN DAILY PRN 12/21/16 22:30 12/27/16 09:47 10 MG Carvedilol (Coreg) 3.125 mg BIDWMEALS 12/24/16 08:00 12/27/16 09:48 3.125 MG Dexamethasone Sodium Phosphate (Decadron) 20 mg STK-MED ONCE 12/22/16 11:59 12/22/16 12:00 DC Dextrose 12.5 gm 12.5 gm PRN Q15MIN PRN 12/21/16 16:15 Docusate Sodium (Colace) 100 mg PRN DAILY PRN 12/21/16 22:30 12/27/16 09:46 100 MG Famotidine (Pepcid) 40 mg QHS 12/21/16 23:30 12/22/16 09:11 DC 12/21/16 23:49 40 MG Fentanyl (Duragesic 50mcg/ Hr Patch) 1 patch Q3DAYS 12/27/16 09:00 12/27/16 09:50 1 PATCH Fentanyl Citrate (Fentanyl 2ml Vial) 25 mcg PRN Q5MIN PRN 12/22/16 12:30 12/23/16 07:47 DC 12/22/16 12:45 25 MCG Fentanyl Citrate 50 mcg 50 mcg PRN Q5MIN PRN 12/22/16 12:30 12/23/16 07:47 DC 12/22/16 13:20 50 MCG Fluconazole/ Sodium Chloride (Diflucan 100mg/ 50ml Premix) 50 ml @ 100 mls/hr Q24H 12/22/16 10:00 12/25/16 09:44 DC 12/24/16 10:49 100 MLS/HR Heparin Sodium/ Sodium Chloride 60 unit 1X ONCE 12/23/16 16:00 12/23/16 16:02 DC 12/23/16 16:20 60 UNIT Hydromorphone HCl (Dilaudid) 2 mg PRN Q3HRS PRN 12/23/16 18:00 12/28/16 05:03 2 MG Hydromorphone HCl 1 mg 1 mg PRN Q4HRS PRN 12/22/16 08:15 12/27/16 21:19 2 MG Info (Anti-Coagulation Monitoring By Pharmacy) 1 each PRN DAILY PRN 12/22/16 08:00 12/22/16 08:02 1 EACH Insulin Aspart (Novolog) 30 units TIDWMEALS 12/24/16 08:00 12/27/16 12:29 30 UNITS Insulin Detemir (Levemir) 60 units BID 12/22/16 21:00 12/27/16 21:23 30 UNITS Lactated Ringer's (Iv Lactated Ringers) 1,000 ml @ 0 mls/hr Q0M 12/22/16 12:18 12/23/16 00:17 DC Levofloxacin/ Dextrose 150 ml @ 100 mls/hr Q48H 12/23/16 15:00 12/23/16 15:00 DC Levofloxacin/ Dextrose 1 each 1 each PRN DAILY PRN 12/21/16 14:15 12/22/16 08:35 DC Lidocaine HCl 2 ml 1X PRN PRN 12/22/16 12:30 12/23/16 12:29 DC Lidocaine/Sodium Bicarbonate (Buffered Lidocaine 1%) 3 ml 1X ONCE 12/23/16 16:00 12/23/16 16:02 DC 12/23/16 16:20 3 ML Linezolid (Zyvox) 600 mg BID 12/24/16 09:00 12/27/16 21:15 600 MG Magnesium Hydroxide (Milk Of Magnesia) 2,400 mg PRN DAILY PRN 12/21/16 22:30 12/27/16 09:50 2,400 MG Meropenem 500 mg/ Sodium Chloride 50 ml @ 100 mls/hr Q6HRS 12/22/16 09:00 12/25/16 09:44 DC 12/25/16 06:30 100 MLS/HR Metolazone (Zaroxolyn) 2.5 mg PRN DAILY PRN 12/21/16 23:00 12/23/16 07:47 DC Metronidazole (FLAGYL 500Mmg PREMIX) 100 ml @ 100 mls/hr 1X ONCE 12/21/16 16:00 12/21/16 16:59 DC 12/21/16 16:15 100 MLS/HR Metronidazole (Flagyl) 500 mg Q12HR 12/25/16 10:00 12/26/16 13:12 DC 12/26/16 08:47 500 MG Montelukast Sodium (Singulair) 10 mg QHS 12/21/16 23:30 12/27/16 21:14 10 MG Morphine Sulfate 4 mg PRN Q15MIN PRN 12/21/16 14:15 12/22/16 08:10 DC 12/21/16 15:22 4 MG Ondansetron HCl (Zofran) 4 mg PRN Q6HRS PRN 12/25/16 09:00 12/27/16 10:59 4 MG Pantoprazole Sodium 40 mg 40 mg DAILYAC 12/22/16 09:30 12/27/16 09:47 40 MG Phenylephrine HCl 1 mg STK-MED ONCE 12/22/16 11:56 12/22/16 11:57 DC Polyethylene Glycol (miraLAX PACKET) 17 gm DAILY 12/22/16 09:00 12/27/16 09:45 17 GM Potassium Chloride (Klor-Con) 20 meq 1X ONCE 12/24/16 12:00 12/24/16 12:01 DC 12/24/16 12:53 20 MEQ Prochlorperazine Edisylate (Compazine) 5 mg PACU PRN PRN 12/22/16 12:30 12/23/16 12:29 DC Propofol (Diprivan) 20 ml @ As Directed STK-MED ONCE 12/22/16 10:47 12/22/16 10:48 DC Sevoflurane (Ultane) 30 ml STK-MED ONCE 12/22/16 12:00 12/22/16 12:01 DC Sodium Chloride (Iv Sodium Chloride 0.9% 1000ml Bag) 1,000 ml @ 50 mls/hr Q20H 12/25/16 11:15 12/27/16 15:45 50 MLS/HR Spironolactone (Aldactone) 12.5 mg DAILY 12/22/16 09:00 12/27/16 09:46 12.5 MG Torsemide (Demadex) 100 mg DAILY 12/22/16 09:00 12/25/16 11:02 DC 12/25/16 09:58 100 MG Torsemide 40 mg 40 mg DAILY 12/26/16 09:00 12/27/16 09:47 40 MG Vancomycin HCl 1 each 1X ONCE 12/23/16 14:30 12/23/16 14:30 DC Vancomycin HCl (Vanco Per Pharmacy) 1 each PRN DAILY PRN 12/21/16 14:15 12/22/16 08:35 DC 12/21/16 17:31 1 EACH Vancomycin HCl 2 gm/Sodium Chloride 500 ml @ 250 mls/hr 1X ONCE 12/21/16 15:00 12/21/16 16:59 DC 12/21/16 15:00 250 MLS/HR Vancomycin HCl/ Sodium Chloride (Iv Sodium Chloride 0.9% 500ml Bag) 500 ml @ 250 mls/hr Q24H 12/22/16 15:00 12/22/16 15:00 DC Lab Laboratory Tests Test 12/27/16 12:23 12/27/16 17:08 12/27/16 21:14 12/28/16 04:57 Glucose (Fingerstick) 155mg/dL (70-99) 75mg/dL (70-99) 90mg/dL (70-99) Sodium Level 145mmol/L (136-145) Potassium Level 3.6mmol/L (3.5-5.1) Chloride Level 103mmol/L (98-107) Carbon Dioxide Level 35mmol/L (21-32) Anion Gap 7 (6-14) Blood Urea Nitrogen 46mg/dL (7-20) Creatinine 2.3mg/dL (0.6-1.0) Estimated GFR (Cockcroft-Gault) 22.7 Glucose Level 126mg/dL (70-99) Calcium Level 9.1mg/dL (8.5-10.1) PAIGE MOSQUEDA MD Dec 28, 2016 09:33
[2016-12-28] MEDS: INSULIN DETEMIR 300 UNITS/3 ML INSULN.PEN. SQ SCH (09:35)
[2016-12-28 10:47] VITALS: BP 129/62
[2016-12-28] MEDS: IV NORMAL SALINE 1000ML BAG 1,000 ML IV SCH (11:32)
[2016-12-28 14:23] VITALS: BP 112/59
[2016-12-28] MEDS: ANTI-COAG MONITOR BY PHARMACY. MC PRN (15:52)
== END 2016-12-28 16:00 | DRG 853 ==
LOC: ER 13:19 → 2 NORTH 14:46
PROVIDERS: ADMIT Internal Medicine; ATTEND Internal Medicine
PROC: 0JBQ0ZZ Excision of Right Foot Subcutaneous Tissue and Fascia, Open Approach (ICD-10-PCS; principal; 2016-12-22 11:30)
PROC: 02H633Z Insertion of Infusion Device into Right Atrium, Percutaneous Approach (ICD-10-PCS; 2016-12-23)
PROC: B2141ZZ Fluoroscopy of Right Heart using Low Osmolar Contrast (ICD-10-PCS; 2016-12-23)
DX: A41.02 Sepsis due to Methicillin resistant Staphylococcus aureus (principal); N17.0 Acute kidney failure with tubular necrosis; L03.115 Cellulitis of right lower limb; E44.0 Moderate protein-calorie malnutrition; Z68.41 Body mass index [BMI] 40.0-44.9, adult; I50.22 Chronic systolic (congestive) heart failure; L02.611 Cutaneous abscess of right foot; N18.4 Chronic kidney disease, stage 4 (severe); M86.9 Osteomyelitis, unspecified; I13.0 Hypertensive heart and chronic kidney disease with heart failure and stage 1 through stage 4 chronic kidney disease, or unspecified chronic kidney disease; D64.9 Anemia, unspecified; E11.22 Type 2 diabetes mellitus with diabetic chronic kidney disease; E11.42 Type 2 diabetes mellitus with diabetic polyneuropathy; E11.51 Type 2 diabetes mellitus with diabetic peripheral angiopathy without gangrene; E78.00 Pure hypercholesterolemia, unspecified; E78.5 Hyperlipidemia, unspecified; E87.6 Hypokalemia; F41.9 Anxiety disorder, unspecified; F32.9 Major depressive disorder, single episode, unspecified; G47.33 Obstructive sleep apnea (adult) (pediatric); G89.29 Other chronic pain; I25.10 Atherosclerotic heart disease of native coronary artery without angina pectoris; I87.8 Other specified disorders of veins; J44.9 Chronic obstructive pulmonary disease, unspecified; K21.9 Gastro-esophageal reflux disease without esophagitis; K59.00 Constipation, unspecified; R33.9 Retention of urine, unspecified; R11.2 Nausea with vomiting, unspecified; E66.01 Morbid (severe) obesity due to excess calories; E11.621 Type 2 diabetes mellitus with foot ulcer; L97.519 Non-pressure chronic ulcer of other part of right foot with unspecified severity; S91.301A Unspecified open wound, right foot, initial encounter; T50.2X5A Adverse effect of carbonic-anhydrase inhibitors, benzothiadiazides and other diuretics, initial encounter; Z82.49 Family history of ischemic heart disease and other diseases of the circulatory system; Z83.3 Family history of diabetes mellitus; Z86.19 Personal history of other infectious and parasitic diseases; I25.2 Old myocardial infarction; Z86.711 Personal history of pulmonary embolism; Z89.429 Acquired absence of other toe(s), unspecified side; Z86.718 Personal history of other venous thrombosis and embolism; Z88.6 Allergy status to analgesic agent; Z88.1 Allergy status to other antibiotic agents; Z88.5 Allergy status to narcotic agent; Z88.0 Allergy status to penicillin; Z88.2 Allergy status to sulfonamides; Z88.8 Allergy status to other drugs, medicaments and biological substances; Z86.73 Personal history of transient ischemic attack (TIA), and cerebral infarction without residual deficits; Z87.891 Personal history of nicotine dependence; Z95.5 Presence of coronary angioplasty implant and graft; Z99.81 Dependence on supplemental oxygen
CPT/HCPCS: 36415; 36569; 71010; 73630; 76937; 77001; 80048; 80053; 82947; 83605; 83735; 83880; 85027; 85610; 85730; 87040; 87071; 87075; 87186; 87205; 93005; 94250; 94640; 94760; 96365; 96366; 96368; 96375; 96376; C1713; C1751; C1892; J1100; J1170; J1450; J1815; J1956; J2020; J2185; J2270; J2370; J2405; J2704; J3010; J3370; J3490; J7030; J7040; J7620; 97605; 99285-25

== ENCOUNTER 2016-12-31 17:40 | Emergency (ER) | payer MEDICARE, MEDICAID ==
[~2016-12-31] VITALS: Ht 171.4 cm; Wt 131.5 kg
[~2016-12-31 17:40] MED LIST changes: +CARV3.12 PO; +HYDR2TAB13 PO; +LINE600T PO; +METR500T PO; +SPIR25TA PO; +TORS20TA PO
[2016-12-31] MEDS ORDERED: FENTANYL PF 100 MCG/2 ML VIAL. IV ONE ×2 (18:00→20:00)
[2016-12-31] MEDS ORDERED: IV NORMAL SALINE 500ML BAG 500 ML IV ONE (18:00)
[2016-12-31] MEDS ORDERED: ONDANSETRON PF 4 MG/2 ML VIAL. IV ONE (18:00)
[2016-12-31 18:14] LABS: CALCIUM 9.2 mg/dL (8.5-10.1); GFR 26.7; POTASSIUM 3.5 mmol/L (3.5-5.1)
--- NOTE | 2016-12-31 18:27 | PHYS DOC ---
Past Medical History Past Medical History: CVA, Diabetes-Type II, DVT, GERD, High Cholesterol, Hypertension, [place], Renal Disease, Other Additional Past Medical Histor: PE, CHRONIC BACK PAIN, ENLARGED LIVER Past Surgical History: Angioplasty, Cholecystectomy, , Other Additional Past Surgical Histo: CARDIAC STENT, VENA CAVA FILTER, HERNIA SURG, 4TH & 5TH RIGHT TOE AMP Alcohol Use: None Drug Use: None Adult General Chief Complaint Chief Complaint: UPPER EXTREMITY INJURY HPI HPI Patient is a 46 year old female who presents by EMS from healthcare resort for flu-like symptoms and right hand swelling. States overnight she developed nbnb n/v, nb diarrhea, chills, and myalgia. States she also has atraumatic right hand swelling today with concern for DVT. States she had a RUE PICC line during recent hospitalization and was discharged on 12/28/16; Eliquis was held during that hospitalization for surgical debridement of right foot, then it was restarted. She has been getting zofran and phenergan for her symptoms prior to arrival. Review of Systems Review of Systems Constitutional: Denies measured fever [] Eyes: Denies change in visual acuity, redness, or eye pain [] HENT: Denies nasal congestion or sore throat [] Respiratory: Denies shortness of breath [] Cardiovascular: No additional information not addressed in HPI [] GI: Denies abdominal pain, bloody stools [] : Denies dysuria or hematuria [] Musculoskeletal: Denies back pain or joint pain [] Integument: Denies rash or skin lesions [] Neurologic: Denies headache, focal weakness or sensory changes [] Endocrine: Denies polyuria or polydipsia [] Current Medications Current Medications Current Medications Medications (Trade) Dose Ordered Sig/[facility] Start Time Stop Time Status Last Admin Dose Admin Fentanyl Citrate (Fentanyl 2ml Vial) 50 mcg 1X ONCE 12/31/16 20:00 12/31/16 20:01 DC Ondansetron HCl 4 mg 4 mg 1X ONCE 12/31/16 18:00 12/31/16 18:01 DC 12/31/16 18:29 4 MG Sodium Chloride (Iv Sodium Chloride 0.9% 500ml Bag) 500 ml @ 500 mls/hr 1X ONCE 12/31/16 18:00 12/31/16 18:59 DC 12/31/16 18:28 500 MLS/HR Allergies Allergies Allergies Coded Allergies Type Severity Reaction Last Updated Verified Penicillins Allergy Severe causes swelling of throat 12/31/16 Yes Sulfa (Sulfonamide Antibiotics) Allergy Severe causes throat to swell 12/31/16 Yes amoxicillin Allergy Severe causes swelling of throat 12/31/16 Yes clarithromycin Allergy Severe causes throat to swell 12/31/16 Yes codeine Allergy Severe "closed up my throat and itching" 12/31/16 Yes hydrocodone Allergy Severe "closes up my throat and itching" 12/31/16 Yes oxycodone Allergy Intermediate 12/31/16 Yes tramadol Allergy Intermediate Nausea and Vomiting 12/31/16 Yes I S O L A T I O N *CONTACT* Allergy Unknown 12/31/16 Yes Physical Exam Physical Exam Constitutional: Well developed, well nourished, no acute distress, non-toxic appearance. [] HENT: Normocephalic, atraumatic, bilateral external ears normal, oropharynx moist, no oral exudates, nose normal. [] Eyes: PERRLA, EOMI. [] Neck: Normal range of motion, supple. [] Cardiovascular:Heart rate regular rhythm [] Lungs & Thorax: Bilateral breath sounds clear to auscultation [] Abdomen: Bowel sounds normal, soft, no tenderness. [] Skin: Warm, dry, no erythema, no rash. [] Back: No tenderness, no CVA tenderness. [] Extremities: Wound vac to RLE. [] Neurologic: Alert and oriented X 3, normal motor function, normal sensory function, no focal deficits noted. [] Psychologic: Affect normal, judgement normal, mood normal. [] Current Patient Data Vital Signs Vital Signs Date Time Temp Pulse Resp B/P Pulse Ox O2 Delivery O2 Flow Rate FiO2 12/31/16 17:50 97.9 87 20 118/59 97 Nasal Cannula 2 97.9 Lab Values Laboratory Tests Test 12/31/16 17:48 12/31/16 17:55 Influenza Type A Antigen Negative (NEGATIVE) Influenza Type B Antigen Negative (NEGATIVE) Sodium Level 137mmol/L (136-145) Potassium Level 3.5mmol/L (3.5-5.1) Chloride Level 98mmol/L (98-107) Carbon Dioxide Level 32mmol/L (21-32) Anion Gap 7 (6-14) Blood Urea Nitrogen 39mg/dL (7-20) H Creatinine 2.0mg/dL (0.6-1.0) H Estimated GFR (Cockcroft-Gault) 26.7 Glucose Level 197mg/dL (70-99) H Calcium Level 9.2mg/dL (8.5-10.1) Laboratory Tests 12/31/16 17:55 Radiology/Procedures Radiology/Procedures Right upper extremity venous doppler IMPRESSION 1. No evidence of upper extremity deep vein thrombosis. 2. Superficial thrombophlebitis of the cephalic vein at the antecubital fossa. Electronically signed by: Telly Christensen MD (Dec 31, 2016 19:22:15) Course & Med Decision Making Course & Med Decision Making Pertinent Labs and Imaging studies reviewed. (See chart for details) Laboratory evaluation shows improvement in Cr compared to prior and is otherwise unremarkable. Symptoms are controlled at this time and she is tolerating po. Is currently on eliquis and has provoked superficial thrombophlebitis. She will be transported back to nursing facility for continued care. Return precautions given. She understands plan. Dragon Disclaimer Dragon Disclaimer This electronic medical record was generated, in whole or in part, using a voice recognition dictation system. Departure Departure Impression: Primary Impression: Nausea vomiting and diarrhea Additional Impression: Superficial thrombophlebitis Disposition: 01 HOME, SELF-CARE Condition: STABLE Referrals: CHELE SINGH MD (PCP) Patient Instructions: Nausea and Vomiting, [id number] Additional Instructions: Continue taking your medications as prescribed. Follow up with your primary care doctor. Return for any concerns. Problem Qualifiers Additional Impression: Superficial thrombophlebitis Superficial thrombophlebitis-Involved body area: upper extremity Laterality: right Qualified Code: I80.8 - Phlebitis and thrombophlebitis of other sites Jessica MYLES MD Dec 31, 2016 18:27
--- NOTE | 2016-12-31 19:23 | RAD ---
PROCEDURE: Right upper extremity venous Doppler ultrasound. HISTORY Right upper extremity swelling x4 days following PICC line removal. History DVT in [place]. COMPARISON None. TECHNIQUE Real-time grayscale, color flow, and Doppler spectral waveform analysis of the internal jugular, subclavian, axillary, basilic, brachial, radial, and ulnar veins. There is thrombus in the cephalic vein at the antecubital fossa at the PICC insertion site. No spontaneous flow is seen. There is incomplete compressibility. The cephalic vein in the forearm is compressible. FINDINGS All visualized vein segments demonstrate normal compressibility and augmentation and color flow. IMPRESSION 1. No evidence of upper extremity deep vein thrombosis. 2. Superficial thrombophlebitis of the cephalic vein at the antecubital fossa. Electronically signed by: Telly Christensen MD (Dec 31, 2016 19:22:15)
[2016-12-31 19:59] LABS: OBC FLU VALID
[2016-12-31 20:52] VITALS: BP 121/58
== END 2016-12-31 21:38 | disposition home or self-care (01) ==
LOC: ER 17:40
DX: I80.8 Phlebitis and thrombophlebitis of other sites (principal); R11.2 Nausea with vomiting, unspecified; R19.7 Diarrhea, unspecified; Z86.73 Personal history of transient ischemic attack (TIA), and cerebral infarction without residual deficits; E11.9 Type 2 diabetes mellitus without complications; Z86.718 Personal history of other venous thrombosis and embolism; K21.9 Gastro-esophageal reflux disease without esophagitis; E78.00 Pure hypercholesterolemia, unspecified; I25.2 Old myocardial infarction; I10 Essential (primary) hypertension; Z95.5 Presence of coronary angioplasty implant and graft; Z90.49 Acquired absence of other specified parts of digestive tract; Z88.5 Allergy status to narcotic agent; Z88.0 Allergy status to penicillin; Z88.2 Allergy status to sulfonamides; Z88.8 Allergy status to other drugs, medicaments and biological substances; Z88.1 Allergy status to other antibiotic agents; Z91.041 Radiographic dye allergy status
CPT/HCPCS: 36415; 80048; 87804; 93971; 96361; 96374; 96375; 96376; 99285; J2405; J3010; J7040

== ENCOUNTER → 2017-01-06 | Outpatient (CLI) | payer MEDICARE, MEDICAID ==
[2016-12-31 20:52] VITALS: BP 121/58
== END | disposition home or self-care (01) ==
LOC: PMGWOUND 10:03
PROVIDERS: ATTEND Preventive Medicine Undersea and Hyperbaric Medicine
DX: E11.621 Type 2 diabetes mellitus with foot ulcer (principal); L97.413 Non-pressure chronic ulcer of right heel and midfoot with necrosis of muscle; E11.51 Type 2 diabetes mellitus with diabetic peripheral angiopathy without gangrene; I11.0 Hypertensive heart disease with heart failure; I50.9 Heart failure, unspecified; E11.40 Type 2 diabetes mellitus with diabetic neuropathy, unspecified; E78.00 Pure hypercholesterolemia, unspecified; K21.9 Gastro-esophageal reflux disease without esophagitis; I25.2 Old myocardial infarction; Z86.718 Personal history of other venous thrombosis and embolism; Z86.711 Personal history of pulmonary embolism; Z86.73 Personal history of transient ischemic attack (TIA), and cerebral infarction without residual deficits; Z87.891 Personal history of nicotine dependence
CPT/HCPCS: 97597

== ENCOUNTER → 2017-01-13 | Outpatient (CLI) | payer MEDICARE, MEDICAID ==
[2016-12-31 20:52] VITALS: BP 121/58
== END | disposition home or self-care (01) ==
LOC: PMGWOUND 12:25
PROVIDERS: ATTEND Preventive Medicine Undersea and Hyperbaric Medicine
DX: E11.621 Type 2 diabetes mellitus with foot ulcer (principal); L97.511 Non-pressure chronic ulcer of other part of right foot limited to breakdown of skin; L89.612 Pressure ulcer of right heel, stage 2; E11.51 Type 2 diabetes mellitus with diabetic peripheral angiopathy without gangrene; I11.0 Hypertensive heart disease with heart failure; I50.9 Heart failure, unspecified; I25.2 Old myocardial infarction; I25.10 Atherosclerotic heart disease of native coronary artery without angina pectoris; E78.00 Pure hypercholesterolemia, unspecified; K21.9 Gastro-esophageal reflux disease without esophagitis; Z86.718 Personal history of other venous thrombosis and embolism; Z86.711 Personal history of pulmonary embolism; Z87.891 Personal history of nicotine dependence
CPT/HCPCS: 97597; 97598

== ENCOUNTER 2017-01-31 17:06 | Inpatient (IN) | payer MEDICARE, MEDICAID ==
[~2017-01-31] VITALS: Ht 170.2 cm; Wt 132.0 kg
[~2017-01-31 17:06] MED LIST changes: +ACET325T9 PO; +CALC200T23 PO; +COLE1TAB PO; +DARB60DI SQ; +DIPH1TAB5 PO; +HYDR4TAB PO; +Hydromorphone Hcl PO; +INSU100V13 SQ; +METO10TA PO; +ONDA4TAB12 PO; +POLY17PO29 PO; -POLY17PO5 PO; -PROC25SU2 RC; +PROC25SU23 RC
[2017-01-31 18:14] LABS: BASO # 0.1 x10^3/uL (0.0-0.2); BASO % 1 % (0-3); EOS % 5 % (0-3); HEMATOCRIT 29.7 % (36.0-47.0); HEMOGLOBIN 9.9 g/dL (12.0-15.5); LYMPH # 1.1 x10^3/uL (1.0-4.8); LYMPH % 11 % (24-48); MEAN CORPUSCULAR HEMOGLOBIN 28 pg (25-35); MEAN CORPUSCULAR HGB CONC 33 g/dL (31-37); MEAN CORPUSCULAR VOLUME 84 fL (79-100); MONO % 7 % (0-9); NEUT % 76 % (31-73); PLATELET COUNT 242 x10^3/uL (140-400); RED BLOOD COUNT 3.52 x10^6/uL (3.50-5.40); WHITE BLOOD COUNT 9.5 x10^3/uL (4.0-11.0)
[2017-01-31] MEDS ORDERED: ONDANSETRON PF 4 MG/2 ML VIAL. ONE (18:17)
[2017-01-31 18:29] LABS: CALCIUM 8.2 mg/dL (8.5-10.1); CREATININE 3.2 mg/dL (0.6-1.0); GFR 15.5; POTASSIUM 3.8 mmol/L (3.5-5.1)
[2017-01-31] MEDS ORDERED: ONDANSETRON PF 4 MG/2 ML VIAL. IV ONE (18:30)
[2017-01-31] MEDS ORDERED: MORPHINE SULFATE 4 MG/ML DISP.SYRIN. IV ONE (18:30)
--- NOTE | 2017-01-31 19:44 | PHYS DOC ---
Past Medical History Past Medical History: CVA, Diabetes-Type II, DVT, GERD, High Cholesterol, Hypertension, ME, Renal Disease, Other Additional Past Medical Histor: PE, CHRONIC BACK PAIN, ENLARGED LIVER Past Surgical History: Angioplasty, Cholecystectomy, , Other Additional Past Surgical Histo: CARDIAC STENT, VENA CAVA FILTER, HERNIA SURG, 4TH & 5TH RIGHT TOE AMP Alcohol Use: None Drug Use: None Adult General Chief Complaint Chief Complaint: CHEST WALL PAIN HPI HPI This is a 46-year-old female who is presenting with significant right upper chest wall pain that radiates somewhat into her neck. She has history of HTN, CAD, DM-II. Patient does have a dialysis catheter in place in that region and it is slightly tender around the catheter site. She does have history of CAD with one stent placed back in 2007. She states she's been relatively chest pain- free until today. She has mild nausea. She denies any significant SOB. Review of Systems Review of Systems Constitutional: Denies fever or chills [] Eyes: Denies change in visual acuity, redness, or eye pain [] HENT: Denies nasal congestion or sore throat [] Respiratory: Denies cough or shortness of breath [] Cardiovascular: No additional information not addressed in HPI [] GI: Denies abdominal pain, nausea, vomiting, bloody stools or diarrhea [] : Denies dysuria or hematuria [] Musculoskeletal: Denies back pain or joint pain [] Integument: Denies rash or skin lesions [] Neurologic: Denies headache, focal weakness or sensory changes [] Endocrine: Denies polyuria or polydipsia [] Current Medications Current Medications Current Medications Medications (Trade) Dose Ordered Sig/Ant Start Time Stop Time Status Last Admin Dose Admin Morphine Sulfate 4 mg 1X ONCE 01/31/17 18:30 01/31/17 18:31 DC 01/31/17 18:20 4 MG Ondansetron HCl (Zofran) 4 mg STK-MED ONCE 01/31/17 18:17 01/31/17 18:18 DC Allergies Allergies Allergies Coded Allergies Type Severity Reaction Last Updated Verified Penicillins Allergy Severe causes swelling of throat 01/15/17 Yes Sulfa (Sulfonamide Antibiotics) Allergy Severe causes throat to swell 01/15/17 Yes amoxicillin Allergy Severe causes swelling of throat 01/15/17 Yes clarithromycin Allergy Severe causes throat to swell 01/15/17 Yes codeine Allergy Severe "closed up my throat and itching" 01/31/17 Yes hydrocodone Allergy Severe "closes up my throat and itching" 01/31/17 Yes silver sulfadiazine Allergy Severe Rash 01/15/17 Yes oxycodone Allergy Intermediate 01/15/17 Yes tramadol Allergy Intermediate Nausea and Vomiting 01/15/17 Yes I S O L A T I O N *CONTACT* Allergy Unknown 01/15/17 Yes Physical Exam Physical Exam Constitutional: Well developed, well nourished, no acute distress, non-toxic appearance. [] HENT: Normocephalic, atraumatic, bilateral external ears normal, oropharynx moist, no oral exudates, nose normal. [] Eyes: PERRLA, EOMI, conjunctiva normal, no discharge. [] Neck: Normal range of motion, no tenderness, supple, no stridor. [] Cardiovascular:Heart rate regular rhythm, no murmur, tenderness to the chest wall along the catheter site, there is no crepitus, there is no erythema, there is no obvious cellulitic change [] Lungs & Thorax: Bilateral breath sounds clear to auscultation [] Abdomen: Bowel sounds normal, soft, no tenderness, no masses, no pulsatile masses. [] Skin: Warm, dry, no erythema, no rash. [] Back: No tenderness, no CVA tenderness. [] Extremities: No tenderness, no cyanosis, no clubbing, ROM intact, no edema. [] Neurologic: Alert and oriented X 3, normal motor function, normal sensory function, no focal deficits noted. [] Psychologic: Affect normal, judgement normal, mood normal. [] Current Patient Data Vital Signs Vital Signs Date Time Temp Pulse Resp B/P Pulse Ox O2 Delivery O2 Flow Rate FiO2 01/31/17 18:20 22 Room Air 01/31/17 17:08 98.7 94 113/56 91 98.7 Lab Values Laboratory Tests Test 01/31/17 18:06 White Blood Count 9.5x10^3/uL (4.0-11.0) Red Blood Count 3.52x10^6/uL (3.50-5.40) Hemoglobin 9.9g/dL (12.0-15.5) L Hematocrit 29.7% (36.0-47.0) L Mean Corpuscular Volume 84fL (79-100) Mean Corpuscular Hemoglobin 28pg (25-35) Mean Corpuscular Hemoglobin Concent 33g/dL (31-37) Red Cell Distribution Width 18.0% (11.5-14.5) H Platelet Count 242x10^3/uL (140-400) Neutrophils (%) (Auto) 76% (31-73) H Lymphocytes (%) (Auto) 11% (24-48) L Monocytes (%) (Auto) 7% (0-9) Eosinophils (%) (Auto) 5% (0-3) H Basophils (%) (Auto) 1% (0-3) Neutrophils # (Auto) 7.3x10^3uL (1.8-7.7) Lymphocytes # (Auto) 1.1x10^3/uL (1.0-4.8) Monocytes # (Auto) 0.6x10^3/uL (0.0-1.1) Eosinophils # (Auto) 0.5x10^3/uL (0.0-0.7) Basophils # (Auto) 0.1x10^3/uL (0.0-0.2) Sodium Level 135mmol/L (136-145) L Potassium Level 3.8mmol/L (3.5-5.1) Chloride Level 100mmol/L (98-107) Carbon Dioxide Level 27mmol/L (21-32) Anion Gap 8 (6-14) Blood Urea Nitrogen 13mg/dL (7-20) Creatinine 3.2mg/dL (0.6-1.0) H Estimated GFR (Cockcroft-Gault) 15.5 Glucose Level 85mg/dL (70-99) Calcium Level 8.2mg/dL (8.5-10.1) L Troponin I Quantitative 0.028ng/mL (0.000-0.055) Laboratory Tests 01/31/17 18:06 Laboratory Tests 01/31/17 18:06 EKG EKG EKG as interpreted by ct shows a sinus rhythm with a rate of 97 bpm with some T- wave inversion noted in V2, V3, and AVL. This EKG does not meet STEMI criteria. Radiology/Procedures Radiology/Procedures Portable chest x-ray as interpreted by me shows demonstrated catheter placement but no apparent acute abnormality. Course & Med Decision Making Course & Med Decision Making Pertinent Labs and Imaging studies reviewed. (See chart for details) This 46 year-old female with significant right upper chest wall pain that is significant around her catheter site had a laboratory workup that is otherwise unremarkable. Her EKG revealed some T-Wave inversions but no other acute findings. A dose of vancomycin was given to the patient for possible infection overlying the catheter site in light of her significant tenderness around that area. She will also be admitted for her ongoing chest pain. Nephrology and cardiology consult will be placed. I discussed the case with the admitting physician, Dr. Ghosh, who agreed to accept the patient for further evaluation treatment. Dragon Disclaimer Dragon Disclaimer This electronic medical record was generated, in whole or in part, using a voice recognition dictation system. Departure Departure Impression: Primary Impression: Chest pain Disposition: ADMITTED INPATIENT Admitting Physician: Mer Ghosh Condition: STABLE Referrals: CHELE SINGH MD (PCP) NENO BECK DO Jan 31, 2017 19:44
[2017-01-31] MEDS ORDERED: ONDANSETRON PF 4 MG/2 ML VIAL. IV PRN (19:45)
--- NOTE | 2017-01-31 19:54 | ACF ---
Admission Forms Criteria CARDIOLOGY GRG Clinical Indications for Admission to Inpatient Care ( Place 'X' for any and all applicable criteria): Hospital admission is needed for appropriate care of the patient because of ANY ONE of the following (1): [ ] I. Hemodynamic instability as indicated by ALL of the following (1)(2)(3) (4)(5) [ ]a) Vital signs or other findings not as expected for chronic patient condition or baseline [ ]b) Instability indicated by ANY ONE of the following: [ ]i) Hypotension [ ]ii) Symptomatic Tachycardia unresponsive to treatment ( e.g., analgesia, fluids, sedation as indicated) [ ]iii) Inadequate perfusion indicated by ANY ONE of the following: [ ] 1) Lactic acidosis (> 2 mmol/L) [ ] 2) New abnormal capillary refill (> 3 seconds) [ ] 3) Reduced urine output [ ] 4) New altered mental status [ ]iv) Orthostatic vital sign changes unresponsive to treatment (e.g., fluids) [ ]v) IV inotropic or vasopressor medication required to maintain adequate blood pressure or perfusion [ ] II. Severe heart failure as indicated by ANY ONE of the following(17)(18) [ ]a) Respiratory distress [ ]b) Hypotension [ ]c) Anasarca (refractory to outpatient therapy) [ ]d) Cardiac arrhythmias of immediate concern [ ]e) Myocardial ischemia [ ] III. Cardiac arrhythmias or findings of immediate concern indicated by ANY ONE of the following (19)(20): [ ] a) Heart rhythms that are inherently dangerous or unstable indicated by ANY ONE of the following (21)(22)(23): [ ] i) Resuscitated ventricular fibrillation or cardiac arrest [ ] ii) Ventricular escape rhythm [ ] iii) Sustained ventricular tachycardia (30 seconds or more of ventricular rhythm at greater than 100 beats per minute) [ ] iv) Nonsustained ventricular tachycardia and ANY ONE of the following: [ ] 1) Suspected cardiac ischemia as cause or consequence of ventricular tachycardia [ ] 2) In setting of acute myocarditis [ ] b) Unstable cardiac conduction defects indicated by ANY ONE of the following(23)(24)(25) [ ] i) Type II second-degree atrioventricular block [ ]ii) Third-degree atrioventricular block [ ]iii) New-onset left bundle branch block with suspected myocardial ischemia [ ]c) Any heart rhythm and ANY ONE of the following (21)(22)(26)(27) (28) [ ] i) Continuous long-term ECG monitoring needed (e.g., initiation of drug requiring monitoring for more than 24 hours) [ ] ii) Patient has automatic implanted cardioverter defibrillator that is repeatedly firing, malfunctioning, or in need of immediate adjustment of settings beyond the scope of ambulatory or observation care [ ]d) Heart rhythms of concern due to ANY ONE of the following: [ ] i) Hypotension [ ] ii) Respiratory distress [ ] iii) Association with other significant symptoms (e.g., bradycardia with syncope or ongoing dizziness, supraventricular tachycardia with chest pain (14)(15)(17) [ ] IV. Monitoring for cardiac contusion beyond the scope of observation care needed [A](30)(31)(32) [ ] V. Surgical or device complication (e.g., valve replacement complication , pacemaker dysfunction) (35)(41)(44)(45)(46) [ ] . Inpatient palliative care needed. [B](49) Also use Inpatient Palliative Care Criteria [ ] VII. Nonbacterial thrombotic (marantic) endocarditis (36)(43)(47)(48) [X] VIII. Cardiology condition, symptom, or finding for which emergency and observation care has failed or are not considered appropriate. [ ] IX. Acute valvular disease requiring inpatient as indicated by ANY ONE of the following (41) [ ]a) Acute valvular regurgitation (42) [ ]b) Noninfectious valvulitis (43) [ ]c) Obstructive valve thrombosis [ ]d) Paravalvular leak [ ]e) Other significant valvular disorder remaining after emergency or observation level of care (as appropriate) [ ]X. Pericardial disease requiring inpatient treatment as indicated by ANY ONE of the following (33)(34)(35)(36)(37) [ ]a) Suspected tamponade (38)(39)(40) [ ]b) Hemopericardium [ ]c) Other significant pericardial disorder remaining after emergency or observation level of care (as appropriate) [ ] XI. Cardiac ischemia beyond scope of emergency and observation care. [ ] XII. Hypertension requiring inpatient treatment as indicated by ANY ONE of the following (6)(7)(8) [ ]a) SBP greater than 220 mm Hg or DBP greater than 120 mmHg despite treatment [ ]b) SBP greater than 140 mm Hg or DBP greater than 100 mm Hg with evidence of acute end organ damage as indicated by ANY ONE of the following [ ] i) Encephalopathy [ ] ii) Acute renal failure as indicated by new onset of ANY ONE of the following (9)(10)(11)(12)(13) [ ]1) 3-fold rise in serum creatinine from baseline [ ]2) Serum creatinine greater than 4 mg/dL ( 354 micromoles/L) with acute rise greater than 0.5 mg/dL (44.2 micromoles/L) [ ]3) Reduction of more than 75% in estimated glomerular filtration rate from baseline [ ]4) Estimated glomerular filtration rate less than 35 mL/min/1.73m2 (0.59 mL/sec/1.73m2) in child up to 18 years of age [ ]5) Cessation of urine output indicated by ALL of the following [ ]A. Adequate volume status [ ]B. Inadequate urine output as indicated by ANY ONE of the following [ ]a. Urine output less than 0.3 mL/kg/hr for 24 hours [ ]b. Anuria (urine output less than 0.1 mL/kg/hr) for 12 hours [ ] iii) Aortic dissection [ ] iv) Myocardial Ischemia [ ] v) Left ventricular heart failure [ ]vi) Retinal Hemorrhage [ ]vii) Other significant finding [ ]c) Hypertension in child requiring inpatient treatment as indicated by ALL of the following(14)(15)(16) [ ] i) Outpatient treatment not effective, not available, or not appropriate [ ]ii) SBP or DBP greater than 95th percentile for age [ ]iii) Evidence of acute end organ damage as indicated by ANY ONE of the following [ ]1) Altered mental status [ ]2) Acute renal failure as indicated by new onset of ANY ONE of the following(9)(10)(11)(12)(13) [ ]A. 3-fold rise in serum creatinine from baseline [ ]B. Serum creatinine greater than 4 mg/dL (354 micromoles/L) with acute rise greater than 0.5 mg/dL (44.2 micromoles/L) [ ]C. Reduction of more than 75% in estimated glomerular filtration rate from baseline [ ]D. Estimated glomerular filtration rate less than 35 mL/min/1.73m2 (0.59 mL/sec/1.73m2) in child up to 18 years of age [ ]E. Cessation of urine output indicated by ALL of the following [ ]a. Adequate volume status [ ]b. Inadequate urine output as indicated by ANY ONE of the following [ ]i) Urine output less than 0.3 mL/kg/hr for 24 hours [ ]ii) Anuria ( urine output less than 0.1 mL/kg/hr) for 12 hours [ ]3) Severe headache [ ]4) Visual disturbance [ ]5) Retinal hemorrhage [ ]6) Other significant finding [ ]XIII. Complications of transplanted heart indicated by ANY ONE of the following(61): [ ]a) Acute graft rejection requiring inpatient management (eg, intravenous immunosuppression)(62)(63) [ ]b) Acute graft heart failure indicated by ANY ONE of the following(64): [ ]i) Hemodynamic instability [ ]ii) Cardiac arrhythmias of immediate concern [ ]iii) Pulmonary edema that is very severe (eg, mechanical ventilation needed, imminent or likely, need for 100% oxygen to keep oxygen saturation above 90%) [ ]iv) Pulmonary edema that is persistent as indicated by ALL of the following: [ ]1) New need for oxygen therapy to keep oxygen saturation above 90% (or increased FiO2 need from baseline) [ ]2) Has not improved sufficiently with emergency department or observation care IV diuretics or other heart failure treatments[E] [ ]v) Altered mental status that is severe or persistent [ ]vi) Increased creatinine (new on laboratory test) with reduction of more than 50% in estimated glomerular filtration rate from baseline [ ]vii) Progressively (ongoing) rising creatinine (known from past laboratory test) with reduction of more than 25% in estimated glomerular filtration rate from baseline [ ]viii) Acute renal failure [ ]ix) Acute peripheral ischemia (eg, examination shows pulseless, cool, mottled, or cyanotic extremity) [ ]x) Pulmonary artery catheter monitoring needed [ ]xi) Other sign or symptom of heart failure requiring inpatient treatment (ie, too severe or not responsive to outpatient and observation care treatment) [ ]c) Infection requiring inpatient management (eg, Hemodynamic instability, need for intravenous antimicrobial treatment)(66)(67)(68)(69)(70) [ ]d) Cardiac allograft vasculopathy requiring inpatient management ( eg evidence of cardiac ischemia)(71) [ ]e) Other complication of transplanted heart (eg, stroke, severe pulmonary hypertension, severe valvular dysfunction) requiring inpatient management(72) The original [facility] content created by [facility] has been revised. The portions of the content which have been revised are identified through the use of italic text or in bold, and [facility] has neither reviewed nor approved the modified material. All other unmodified content is copyright [facility]. Please see references footnoted in the original [facility] edition 2016 Admission Criteria Met?: Yes LOGAN LOVE Jan 31, 2017 19:54
[2017-01-31] MEDS ORDERED: VANCOMYCIN 2 GM in IV NORMAL SALINE 500ML BAG 500 ML IV ONE (20:00)
[2017-01-31] MEDS: MORPHINE SULFATE 4 MG/ML DISP.SYRIN. IV PRN ×2 (20:04→22:03)
[2017-01-31 20:25] VITALS: BP 98/55
[2017-01-31] MEDS ORDERED: MAGN400T3 PO (21:25)
[2017-01-31] MEDS ORDERED: INSU100I27 SQ (21:25)
[2017-01-31] MEDS ORDERED: ACETAMINOPHEN 325 MG TABLET. PO PRN (21:45)
[2017-01-31] MEDS ORDERED: DOCUSATE SODIUM 100 MG CAPSULE. PO PRN (21:45)
[2017-01-31] MEDS ORDERED: MAGNESIUM HYDROXIDE 2,400 MG/30 ML ORAL.SUSP. PO PRN (21:45)
[2017-01-31] MEDS ORDERED: NITROGLYCERIN SUBLINGUAL 0.4 MG BOTTLE OF 25. SL PRN (21:45)
[2017-01-31] MEDS ORDERED: CALCIUM CARBONATE 500 MG TAB.CHEW PO PRN (21:45)
[2017-01-31] MEDS ORDERED: ONDANSETRON ODT 4 MG TAB.RAPDIS. PO PRN ×2 (21:45)
[2017-01-31] MEDS ORDERED: BISACODYL 5 MG TABLET.DR. PO PRN (21:45)
[2017-01-31] MEDS: COLESTIPOL HCL 1 GM TABLET PO SCH (21:54)
[2017-01-31] MEDS: APIXABAN 5 MG TABLET. PO SCH (21:55)
[2017-01-31] MEDS: INSULIN DETEMIR 300 UNITS/3 ML INSULN.PEN. SQ SCH (21:55)
[2017-01-31] MEDS: ATORVASTATIN CALCIUM 40 MG TABLET. PO SCH (22:02)
[2017-01-31 23:05] VITALS: BP 103/65
[2017-02-01] VITALS (7 sets, daily range): BP systolic 84–107; BP diastolic 41–68
--- NOTE | 2017-02-01 00:21 | EKG ---
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
[2017-02-01] MEDS: HYDROmorphone 2 MG TABLET PO PRN ×3 (01:27→18:01)
[2017-02-01] MEDS ORDERED: DEXTROSE 50% 25 GM / 50ML DISP.SYRIN. IV PRN (07:00)
[2017-02-01] MEDS: INSULIN ASPART 300 UNITS/3 ML INSULN.PEN SQ SCH ×7 (07:30→21:00)
[2017-02-01] MEDS: MORPHINE SULFATE 4 MG/ML DISP.SYRIN. IV PRN (07:58)
[2017-02-01] MEDS: CARVEDILOL 3.125 MG TABLET. PO SCH ×2 (08:00→17:00)
[2017-02-01] MEDS: IPRATRPIUM/ALBUTEROL 0.5/2.5MG 3 ML NEBU. NEB SCH ×2 (08:10→11:35)
[2017-02-01] MEDS ORDERED: INSULIN DETEMIR 30 UNIT SQ SCH (09:00)
[2017-02-01] MEDS: APIXABAN 5 MG TABLET. PO SCH ×2 (09:00→21:36)
[2017-02-01] MEDS ORDERED: POLYETHYLENE GLYCOL 3350 17 GM PACKET. PO SCH (09:00)
[2017-02-01] MEDS: INSULIN DETEMIR 300 UNITS/3 ML INSULN.PEN. SQ SCH ×2 (09:00→21:00)
[2017-02-01] MEDS ORDERED: ASCORBIC ACID 500 MG TABLET PO SCH (09:00)
[2017-02-01] MEDS: METOCLOPRAMIDE 10 MG TABLET. PO SCH ×3 (09:04→16:30)
[2017-02-01] MEDS: PANTOPRAZOLE 40 MG TABLET.DR. PO SCH (09:05)
--- NOTE | 2017-02-01 09:05 | RAD ---
Portable chest, 01/31/2017: History: Chest pain Comparison is made to a study from 01/22/2017. A right jugular dialysis type catheter remains in place extending to the level of the atriocaval junction. The heart is mildly enlarged. The pulmonary vascularity appears to be within normal limits. No pulmonary infiltrate is seen. There is no evidence of pleural fluid. IMPRESSION: 1. Unchanged mild cardiomegaly. 2. No acute abnormality is detected.
--- NOTE | 2017-02-01 09:49 | PDOC2 ---
TAN KILLIAN SINKER WINDER 02/01/17 0949: CARDIAC CONSULT DATE OF CONSULT Date of Consult DATE: 02/01/17 TIME: 09:34 REASON FOR CONSULT Reason for Consult: Chest pain REFERRING PHYSICIAN Referring Physician: Mason SOURCE Source: Chart review, Patient HISTORY OF PRESENT ILLNESS HISTORY OF PRESENT ILLNESS This is a pleasant 46 yo female admitted for complains of right chest and neck pain. Pt recently had a tunneled dialysis catheter placed in 01/25. Wednesday she started noticing tenderness to her right neck and chest adjacent to her dialysis cath. Denies any nausea, vomiting, diaphoresis, palpitations, SOA. She gets her dialysis , and Wednesday. Through this weekend her pain continued and worse when she moves her right arm and pressing on it. Denies any oozing around site but complains of tenderness to the dialysis region. She is significant for multiple comrobid conditions as enumerated in assessment and she follows with [facility]. No recent falls, injury, nor heavy lifting. PAST MEDICAL HISTORY Cardiovascular: CAD, CHF (cardiomyopathy), HTN, CO, Hyperlipidemia, Other (PVD) Pulmonary: COPD, Pulmonary embolus, Other (JENNA) CENTRAL NERVOUS SYSTEM: CVA, Periperal neuropathy GI: GERD Heme/Onc: Anemia NOS Hepatobiliary: No pertinent hx Psych: Anxiety, Depression Musculoskeletal: low back pain, Osteoarthritis, Other (DVT RLE) Infectious disease: Other (C-diff, pseudomonas) ENT: No pertinent hx Renal/: Chronic renal insuff (ESRD) Endocrine: Diabetes (2) Dermatology: Other (right foot ulcer with osteomyelitis) PAST SURGICAL HISTORY Past Surgical History: Cholecystectomy, , Hernia Repair, Other (toe amputation; IVC filter, recent right foot I & D 12/2016) FAMILY HISTORY Family History: Diabetes, Heart Disease, Hypertension SOCIAL HISTORY Smoke: No (quit) ALCOHOL: none Drugs: None CURRENT MEDICATIONS CURRENT MEDICATIONS Current Medications Medications (Trade) Dose Ordered Sig/Ant Route PRN Reason Start Time Stop Time Status Last Admin Dose Admin Morphine Sulfate 4 mg 1X ONCE IV 01/31/17 18:30 01/31/17 18:31 DC 01/31/17 18:20 Ondansetron HCl (Zofran) 4 mg 1X ONCE IV 01/31/17 18:30 01/31/17 18:31 DC 01/31/17 18:20 Morphine Sulfate 4 mg 4 mg PRN Q2HR PRN IV PAIN 01/31/17 19:45 02/01/17 19:44 02/01/17 07:58 Vancomycin HCl/ Sodium Chloride (Iv Sodium Chloride 0.9% 500ml Bag) 500 ml @ 250 mls/hr 1X ONCE IV 01/31/17 20:00 01/31/17 21:59 DC 01/31/17 20:27 Atorvastatin Calcium (Lipitor) 40 mg HS PO 01/31/17 22:00 01/31/17 22:02 Hydromorphone HCl (Dilaudid) 2 mg PRN Q6HRS PRN PO PAIN 01/31/17 21:45 02/01/17 01:27 Albuterol/ Ipratropium (Duoneb) 3 ml RTQID NEB 02/01/17 08:00 02/01/17 08:10 Metoclopramide HCl (Reglan) 5 mg TIDAC PO 02/01/17 07:30 02/01/17 09:04 Pantoprazole Sodium (Protonix) 40 mg DAILYAC PO 02/01/17 07:30 02/01/17 09:05 ALLERGIES ALLERGIES: Coded Allergies: Penicillins (Verified Allergy, Severe, causes swelling of throat, 01/15/17) Sulfa (Sulfonamide Antibiotics) (Verified Allergy, Severe, causes throat to swell, 01/15/17) amoxicillin (Verified Allergy, Severe, causes swelling of throat, 01/15/17) clarithromycin (Verified Allergy, Severe, causes throat to swell, 01/15/17) codeine (Verified Allergy, Severe, "closed up my throat and itching", 01/31) tolerates percocet, Dilaudid is home med hydrocodone (Verified Allergy, Severe, "closes up my throat and itching", 01/31/17) tolerates percocet, Dilaudid is home med silver sulfadiazine (Verified Allergy, Severe, Rash, 01/15/17) oxycodone (Verified Allergy, Intermediate, 01/15/17) tramadol (Verified Allergy, Intermediate, Nausea and Vomiting, 01/15/17) I S O L A T I O N *CONTACT* (Verified Allergy, Unknown, 01/15/17) mrsa ROS Review of System 14 point ROS evaluated with pertinent positives noted per HPI PHYSICAL EXAM General: Alert, Oriented X3, Cooperative, No acute distress HEENT: Atraumatic, Mucous membr. moist/pink Lungs: Clear to auscultation, Normal air movement Heart: Regular rate (SR), Normal S1, Normal S2, Other (2/6 systolic murmur to LLS border) Abdomen: Soft, No tenderness, Other (obese) Extremities: No cyanosis, Other (3-4+ bilateral LE pitting edema) Skin: No breakdown, No significant lesion, Other Neuro: Normal speech, Sensation intact Psych/Mental Status: Mental status NL, Mood NL MUSCULOSKELETAL: Osteoarthritic changes both hands VITALS VITALS Vital Signs Date Time Temp Pulse Resp B/P Pulse Ox O2 Delivery O2 Flow Rate FiO2 02/01/17 09:06 93 Nasal Cannula 2.0 02/01/17 08:00 101 97/61 02/01/17 07:15 98.0 18 98.0 LABS Lab: Laboratory Tests Test 01/31/17 18:06 01/31/17 20:57 02/01/17 01:25 02/01/17 08:00 White Blood Count 9.5x10^3/uL (4.0-11.0) Red Blood Count 3.52x10^6/uL (3.50-5.40) Hemoglobin 9.9g/dL (12.0-15.5) Hematocrit 29.7% (36.0-47.0) Mean Corpuscular Volume 84fL (79-100) Mean Corpuscular Hemoglobin 28pg (25-35) Mean Corpuscular Hemoglobin Concent 33g/dL (31-37) Red Cell Distribution Width 18.0% (11.5-14.5) Platelet Count 242x10^3/uL (140-400) Neutrophils (%) (Auto) 76% (31-73) Lymphocytes (%) (Auto) 11% (24-48) Monocytes (%) (Auto) 7% (0-9) Eosinophils (%) (Auto) 5% (0-3) Basophils (%) (Auto) 1% (0-3) Neutrophils # (Auto) 7.3x10^3uL (1.8-7.7) Lymphocytes # (Auto) 1.1x10^3/uL (1.0-4.8) Monocytes # (Auto) 0.6x10^3/uL (0.0-1.1) Eosinophils # (Auto) 0.5x10^3/uL (0.0-0.7) Basophils # (Auto) 0.1x10^3/uL (0.0-0.2) Sodium Level 135mmol/L (136-145) Potassium Level 3.8mmol/L (3.5-5.1) Chloride Level 100mmol/L (98-107) Carbon Dioxide Level 27mmol/L (21-32) Anion Gap 8 (6-14) Blood Urea Nitrogen 13mg/dL (7-20) Creatinine 3.2mg/dL (0.6-1.0) Estimated GFR (Cockcroft-Gault) 15.5 Glucose Level 85mg/dL (70-99) Calcium Level 8.2mg/dL (8.5-10.1) Troponin I Quantitative 0.028ng/mL (0.000-0.055) 0.021ng/mL (0.000-0.055) 0.024ng/mL (0.000-0.055) Glucose (Fingerstick) 68mg/dL (70-99) ECHOCARDIOGRAM ECHOCARDIOGRAM <Conclusion> The Left Ventricle is mildly dilated. The systolic function is moderate to severely impaired. The Ejection Fraction is 30-35%. There is global hypokinesis of the left ventricle. There is no significant aortic valvular stenosis. Doppler and Color Flow revealed no significant aortic regurgitation. Doppler and Color-flow revealed mild mitral regurgitation. Doppler and Color Flow revealed trace tricuspid regurgitation. The PA pressure was estimated at 22 mmHg. DATE: 07/14/161748 ASSESSMENT/PLAN ASSESSMENT/PLAN 1. Atypical right side chest pain: recent tunneled HD cath 01/25/2017. Noncardiac 2. CAD: stent in the past. 3. Cardiomyopathy/chronic systolic CHF: EF 30%. No AICD, does not want it. Compensated 4. HTN: low end but stable 5. HLP 6. Hx of PE/DVT: IVC filter in place and on eliquis 7. COPD/JENNA: no SOA. 8. ESRD 9. Recent R foot I & D 10. Anemia of chronic disease. 11. DM2/DPN 12. PVD with Chronic lymphedema? Recommendation 1. Likely MSK and inflammatory process adjacent to HD cath. Reproducible. Troponin series normal. EKG SR without acute changes. No further cardiac testing 2. Follow up with [facility] when discharge 3. Continue with secondary prevention 4. Fluid off loading per HD Problems: SHEREEN ORTIZ MD 02/01/17 1633: CARDIAC CONSULT ALLERGIES ALLERGIES: Coded Allergies: Penicillins (Verified Allergy, Severe, causes swelling of throat, 01/15/17) Sulfa (Sulfonamide Antibiotics) (Verified Allergy, Severe, causes throat to swell, 01/15/17) amoxicillin (Verified Allergy, Severe, causes swelling of throat, 01/15/17) clarithromycin (Verified Allergy, Severe, causes throat to swell, 01/15/17) codeine (Verified Allergy, Severe, "closed up my throat and itching", 01/31) tolerates percocet, Dilaudid is home med hydrocodone (Verified Allergy, Severe, "closes up my throat and itching", 01/31/17) tolerates percocet, Dilaudid is home med silver sulfadiazine (Verified Allergy, Severe, Rash, 01/15/17) oxycodone (Verified Allergy, Intermediate, 01/15/17) tramadol (Verified Allergy, Intermediate, Nausea and Vomiting, 01/15/17) I S O L A T I O N *CONTACT* (Verified Allergy, Unknown, 01/15/17) mrsa ASSESSMENT/PLAN ASSESSMENT/PLAN Patient seen and examined. Agree with LIBRARIAN HEAD's assessment and plan. Chest pain atypical, reproducible to palpation and most probably musculoskeletal. CAD status stable. Chronic systolic heart failure well compensated. Continue hemodialysis per nephrology team. Follow-up with primary farm service adviser upon discharge. Thank you for your consultation. Problems: TAN KILLIAN APRN Feb 01, 2017 09:49 SHEREEN ORTIZ MD Feb 01, 2017 16:33
[2017-02-01] MEDS: COLESTIPOL HCL 1 GM TABLET PO SCH ×3 (10:00→21:36)
[2017-02-01] MEDS: NYSTATIN TOPICAL POWDER 15GM BOTTLE. TP SCH ×2 (10:00→21:00)
--- NOTE | 2017-02-01 10:13 | PDOC ---
Provider Note Provider Note Patient seen. History and Physical dictated. See dictation# [id number] CHELE SINGH MD Feb 01, 2017 10:13
[2017-02-01] MEDS: MAGNESIUM OXIDE 400 MG TABLET PO SCH ×3 (11:04→21:36)
[2017-02-01] MEDS: ASPIRIN ENTERIC COATED 81 MG TABLET.DR. PO SCH (11:04)
[2017-02-01] MEDS ORDERED: IPRATRPIUM/ALBUTEROL 0.5/2.5MG 3 ML NEBU. NEB PRN (11:45)
[2017-02-01] MEDS: VANCOMYCIN PER PHARMACY MC PRN ×3 (12:35→12:43)
[2017-02-01] MEDS: ANTI-COAG MONITOR BY PHARMACY. MC PRN (12:47)
--- NOTE | 2017-02-01 13:21 | PDOC ---
Infectious Disease Note Subjective Subjective Known to our service please see consult 12/21. Progress note 01/18 and 01/26 Returned sec to pain associated with HD cath started evening of 01/29 and worsened No F/C/S/n/v/D. Wounds ok but states were only changed twice the whole time she was there ROS ROS GEN: Denies fevers, chills, sweats HEENT: Denies blurred vision, sore throat CV: Denies chest pain RESP: Denies shortness of air, cough GI: Denies n/v/d NEURO: Denies confusion, dizziness Vital Sign Vital Signs Vital Signs Date Time Temp Pulse Resp B/P Pulse Ox O2 Delivery O2 Flow Rate FiO2 02/01/17 12:18 Nasal Cannula 2.0 02/01/17 11:05 97.9 101 20 84/41 94 97.9 Physical Exam PHYSICAL EXAM GENERAL: NAD, Alert HEENT: PERRL, OC/OP - clear NECK: Supple, no JVD, no LN LUNGS: Clear HEART: S1S2, no gallop, no murmur ABD: Soft, NT, no organomegaly, no rebound, obese Quick EXT: No edema, no cyanosis. Heel wound is clean. Dorsal wound stage 2 clean. No signs of infection. 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 Labs Lab Laboratory Tests Test 01/31/17 18:06 01/31/17 20:57 02/01/17 01:25 02/01/17 08:00 White Blood Count 9.5x10^3/uL (4.0-11.0) Red Blood Count 3.52x10^6/uL (3.50-5.40) Hemoglobin 9.9g/dL (12.0-15.5) Hematocrit 29.7% (36.0-47.0) Mean Corpuscular Volume 84fL (79-100) Mean Corpuscular Hemoglobin 28pg (25-35) Mean Corpuscular Hemoglobin Concent 33g/dL (31-37) Red Cell Distribution Width 18.0% (11.5-14.5) Platelet Count 242x10^3/uL (140-400) Neutrophils (%) (Auto) 76% (31-73) Lymphocytes (%) (Auto) 11% (24-48) Monocytes (%) (Auto) 7% (0-9) Eosinophils (%) (Auto) 5% (0-3) Basophils (%) (Auto) 1% (0-3) Neutrophils # (Auto) 7.3x10^3uL (1.8-7.7) Lymphocytes # (Auto) 1.1x10^3/uL (1.0-4.8) Monocytes # (Auto) 0.6x10^3/uL (0.0-1.1) Eosinophils # (Auto) 0.5x10^3/uL (0.0-0.7) Basophils # (Auto) 0.1x10^3/uL (0.0-0.2) Sodium Level 135mmol/L (136-145) Potassium Level 3.8mmol/L (3.5-5.1) Chloride Level 100mmol/L (98-107) Carbon Dioxide Level 27mmol/L (21-32) Anion Gap 8 (6-14) Blood Urea Nitrogen 13mg/dL (7-20) Creatinine 3.2mg/dL (0.6-1.0) Estimated GFR (Cockcroft-Gault) 15.5 Glucose Level 85mg/dL (70-99) Calcium Level 8.2mg/dL (8.5-10.1) Troponin I Quantitative 0.028ng/mL (0.000-0.055) 0.021ng/mL (0.000-0.055) 0.024ng/mL (0.000-0.055) Glucose (Fingerstick) 68mg/dL (70-99) Objective Assessment Chest pain related to HD cath - appears clean. AF and normal WBC. CXR clear H/o Right foot cellulitis and infected wound PSA 4/7 Right foot abscess - s/p I and D, 12/22 - . MRSA. -No bony involvement per op note Multiple abx allergies KENDAL on CKD getting HD Plan Plan of Care Cont local wound care. Wounds do not look infected D/c vanc ARACELI LU MD Feb 01, 2017 13:21
--- NOTE | 2017-02-01 13:56 | HP ---
ADMIT DATE: 01/31/2017 ADMITTING PHYSICIAN: Chele Johnson M.D. REASON FOR ADMISSION: Pain in the right upper chest and neck pain for 1 day. HISTORY OF PRESENT ILLNESS: This is a 46-year-old female who has multiple medical problems including right foot diabetic wounds, dyspnea, recent acute on chronic renal failure with end-stage renal disease who has recently been started on hemodialysis, was [facility] when she suddenly started the pain, pain in the right upper chest radiating to the neck. She recently had a tunneled catheter placed in that area. Because of the severe pain, the patient had taken pain medications, not being reviewed. She came to the Emergency Room and was admitted for further evaluation and management. Initial cardiac enzymes were negative and chest x-ray is negative. The patient states that her chest pain on the right upper chest is slightly better, but continues to be in a lot of pain. She also has persistent diarrhea. She denies any nausea, vomiting, fever or chills. She has rash in her groins and she also feels that she has a new sore on her lower back. She does not want me to examine the sore because she stated that the staff already knows about it and I advised the staff to take care of it. REVIEW OF SYSTEMS: As noted in the history of present illness. The patient denies any nausea, vomiting, abdominal pain, but she does admit to diarrhea and right upper chest pain. She denies any dyspnea, cold, cough, congestion, fever or chills. Her last dialysis was on Wednesday. Other systems reviewed and are negative. PAST MEDICAL HISTORY: 1. As noted earlier, the patient was recently discharged from this institution on 01/26/2017 after being treated for acute renal failure with chronic kidney disease 3 with ATN with ESRD requiring hemodialysis. 2. The patient had DVT of the right lower extremity on 12/11/2016 and is on Eliquis with history of PE, DVT right lower extremity and IVC filter. 3. The patient has diarrhea with negative C. diff x 3, negative stool studies. 4. The patient has chronic CHF, systolic ejection fraction 30-35%. 5. 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 6. Anxiety and depression. 7. Hypertension. 8. Hyperlipidemia. 9. Coronary artery disease with history of OR and PCI with stent placed. 10. Gastroesophageal reflux disease. 11. Chronic low back pain. 12. History of hypercapnic and hypoxic respiratory failure with narcotics. 13. Chronic obstructive pulmonary disease. 14. History of CVA. 15. History of urinary retention. 16. History of right foot plantar diabetic ulcer, nonhealing with osteomyelitis, debridement to the bone in 06/2016 status post amputation, right, procedure fourth and fifth toes on 07/16/2016. 17. Morbid obesity. 18. Obstructive sleep apnea, oxygen 3 liters per nasal cannula at bedtime, CPAP intolerant. 19. Severe chronic protein-calorie malnutrition. 21. History of noncompliance. 22. Past history of infected right foot wound with Pseudomonas. FAMILY HISTORY: Positive for diabetes, hypertension, heart disease. SOCIAL HISTORY: No current history of smoking, alcoholism or drug abuse. PAST SURGICAL HISTORY: Toe amputations as noted earlier, IVC filter, PCI stent, , hernia repair and gallbladder surgery. ALLERGIES: THE PATIENT IS ALLERGIC TO PENICILLIN, SULFA, AMOXICILLIN, CODEINE, HYDROCODONE, OXYCODONE, SULFADIAZINE . PHYSICAL EXAMINATION: GENERAL: The patient is a middle-aged female, alert, oriented, morbidly obese and not in any acute distress. VITAL SIGNS: Temperature 98, pulse 101 per minute, respirations 18 per minute, blood pressure 97/61. LUNGS: Decreased breath sounds at bases. CARDIOVASCULAR: S1, S2 regular. ABDOMEN: Soft, nontender, obese. No guarding, no rigidity. Bowel sounds present. EXTREMITIES: The patient has a right foot dressing in place. She has edema of both lower extremities, but edema is improving. NEUROLOGIC: The patient stated that she has a wound on the lower back, but she does not want me to look at it. She has rash in the groins. The patient has diabetic neuropathy, generalized weakness, moves extremities. She is also alert and oriented. LABORATORY FINDINGS: WBC count 9.5, hemoglobin 9.9, platelet count 242,000, polys 76, sodium 135, potassium 3.8, BUN 13, creatinine 3.2, glucose 68. Troponin 0.028, 0.021 and 0.024. Chest x-ray, no acute changes. IMPRESSION: 1. Right upper chest pain, possibly related to the recent tunneled loop HD catheter insertion. We will consult Cardiology for cardiac evaluation as she is high risk for cardiac issues as well as consult Dr. Rico for HD catheter evaluation. We will also consult Dr. Maloney because she also has multiple respiratory issues for the chest pain. 2. Recent acute renal failure with chronic kidney disease 3, acute tubular necrosis with end-stage renal disease requiring hemodialysis. Consult Dr. Toussaint. 3. Deep venous thrombosis of the right lower extremity on 12/11/2016, on Eliquis with history of pulmonary embolism, deep venous thrombosis right lower extremity and IVC filter. 4. Right foot wound with previous pseudomonas infection, diabetic wound nonhealing with osteomyelitis, status post fourth and fifth toe surgery. On pictures, the wound is improving. Consult Dr. Weiner for wound care evaluation and management. We will also consult wound care nurse. The patient also stated that she has a wound in the lower back that is superficial, but she would not let me look at it. 5. Chronic congestive heart failure, systolic ejection fraction of 30-35%, nonacute. 6. Diarrhea with previous negative C. diff. I will recheck C. diff assay and discontinue MiraLax. We will also hold off on the p.r.n. stool softeners and Dulcolax, but continue Reglan at this time. Previous workup for diarrhea has been negative. 7. Diabetes mellitus type 2 with neuropathy, peripheral vascular disease and chronic insulin use. 8. Anxiety and depression. 9. Hypertension. 10. Hyperlipidemia. 11. Coronary artery disease with history of myocardial infarction and percutaneous coronary intervention with stent placement. 12. Gastroesophageal reflux disease. 13. Chronic low back pain. 14. History of hypercapnic and hypoxic respiratory failure with narcotics. 15. Chronic obstructive pulmonary edema. 16. History of cerebrovascular accident. 17. Morbid obesity. 18. Obstructive sleep apnea, on oxygen by 3 liters nasal cannula at bedtime, and CPAP intolerant. 19. History of noncompliance. PLAN: As noted. We will consult Dr. Toussaint, Dr. Weiner, wound care nurse, Dr. Rico and Cardiology consult. For details, please review the orders. I ordered C. diff and stopped some of the stool softeners. Monitor labs. The pain appears to be more related to the catheter, but we will check for other etiology. CHELE JOHNSON MD DR: RED/britney JOB#: [id number] / [id number]
--- NOTE | 2017-02-01 18:09 | CONS ---
DATE OF CONSULTATION: PULMONARY CONSULTATION ATTENDING PHYSICIAN: Dr. Dunia Johnson. REASON FOR CONSULTATION: Chest pain. HISTORY OF PRESENT ILLNESS: The patient is a 46-year-old female with multiple chronic medical problems including history of [id number] renal failure with end-stage renal disease and recently started on hemodialysis. She was in a senior living when she started to have pain in the right upper chest. The patient had a tunneled catheter placed in that area and the pain was severe. She was taking pain medications, which did not help the pain, as a result, she was hospitalized for further evaluation. I have reviewed patient's chest x-ray, which does not show any acute infiltrate, maybe slight prominent vascular markings. No evidence of any pneumothorax. She has history of DVT involving the right lower extremity in December 2016 and also history of pulmonary embolism. She has been on Eliquis. She does not appear to be in any obvious respiratory distress while resting. She has no history of tobacco use. She did use oxygen at night time. PAST MEDICAL HISTORY: 1. Significant for history of end-stage renal disease, now requiring hemodialysis. 2. History of DVT of the right lower extremity in December 2016 and history of PE. She has IVC filter and also is on Eliquis. 3. History of CHF, history of mild cardiomyopathy with an EF of 30-35%, history of diabetes type 2 with neuropathy and peripheral vascular disease. Anxiety, depression, , underlying obesity, chronic back pain, history of CVA, urinary retention, osteomyelitis, obstructive sleep apnea on oxygen 3 liters and CPAP intolerance. FAMILY HISTORY: Noncontributory to lungs. ALLERGIES: Multiple and they were all reviewed as listed in the MRAD. MEDICATIONS: All reviewed as listed in the MRAD. SOCIAL HISTORY: No significant tobacco history. PHYSICAL EXAMINATION: VITAL SIGNS: Reviewed. Blood pressure 107/68, afebrile, pulse ox 96% on 2 liters. NECK: Supple. LUNGS: Diminished breath sounds. There is tenderness to palpation in the right upper chest wall area. CARDIOVASCULAR: Regular rate and rhythm. ABDOMEN: Soft and obese. EXTREMITIES: With bilateral pitting edema. LABORATORY DATA: Reviewed. White cell count 9.5, hemoglobin 9.9, platelets are 242. BUN 13, creatinine 3.2. IMPRESSION: 1. Right chest wall pain, this is reproducible and most likely related to the placement of tunneled catheter in that area. 2. History of deep venous thrombosis, right lower extremity, status post IVC filter and history of pulmonary embolism. The patient is on Eliquis. I do not suspect any recurrent thromboembolic disease and do not see a need for any CT angiogram. 3. History of end-stage renal disease, now requiring hemodialysis. 4. History of cardiomyopathy with an EF of 30%-35%. 5. Peripheral vascular disease. RECOMMENDATIONS: 1. Continue with pain medications to treat her chest wall pain, which is related to tunneled catheter. 2. Continue home Eliquis. 3. Continue nebulizer treatment. 4. Continue oxygen. 5. We will follow along with you. KELI BORDEN MD DR: MINOR/britney JOB#: [id number] / [id number] ROSANA
[2017-02-01] MEDS: ATORVASTATIN CALCIUM 40 MG TABLET. PO SCH (21:36)
[2017-02-01] MEDS: fentaNYL 50MCG/HR PATCH 1 PATCH PATCH.TD72 TD SCH (21:36)
--- NOTE | 2017-02-01 23:25 | PDOC2 ---
CONSULT Date of Consult Date of Consult DATE: 02/01/17 TIME: 23:22 Reason for Consult Reason for Consult: ESRD Identification/Chief Complaint Chief Complaint 46 yr old lady Known to us Admitted for ESRD/CP Now pain free No other related c/o No SOA No NVD No fevers. Past Medical History Cardiovascular: CAD, CHF (cardiomyopathy), HTN, SC, Hyperlipidemia, Other (PVD) Pulmonary: COPD, Pulmonary embolus, Other (JENNA) CENTRAL NERVOUS SYSTEM: CVA, Periperal neuropathy GI: GERD Heme/Onc: Anemia NOS Hepatobiliary: No pertinent hx Psych: Anxiety, Depression Musculoskeletal: low back pain, Osteoarthritis, Other (DVT RLE) Infectious disease: Other (C-diff, pseudomonas) ENT: No pertinent hx Renal/: Chronic renal insuff (ESRD) Endocrine: Diabetes (2) Dermatology: Other (right foot ulcer with osteomyelitis) Past Surgical History Past Surgical History: Cholecystectomy, , Hernia Repair, Other (toe amputation; IVC filter, recent right foot I & D 12/2016) Family History Family History: Diabetes, Heart Disease, Hypertension Social History No (quit) ALCOHOL: none Drugs: None Lives: with Family Current Problem List Problem List Problems Medical Problems: (1) Chest pain Status: Acute Current Medications Current Medications Current Medications Morphine Sulfate 4 mg 1X ONCE IV Last administered on 01/31/17 18:20; Start 01/31/17 at 18:30; Stop 01/31/17 at 18:31; Status DC Ondansetron HCl (Zofran) 4 mg 1X ONCE IV Last administered on 01/31/17 18:20 ; Start 01/31/17 at 18:30; Stop 01/31/17 at 18:31; Status DC Ondansetron HCl (Zofran) 4 mg STK-MED ONCE .ROUTE ; Start 01/31/17 at 18:17; Stop 01/31/17 at 18:18; Status DC Ondansetron HCl (Zofran) 4 mg PRN Q8HRS PRN IV NAUSEA/VOMITING; Start 01/31/17 at 19:45; Stop 02/01/17 at 19:44; Status DC Morphine Sulfate 4 mg PRN Q2HR PRN IV PAIN Last administered on 02/01/17 07:58 ; Start 01/31/17 at 19:45; Stop 02/01/17 at 19:44; Status DC Vancomycin HCl 1 each 1 each PRN DAILY PRN MC SEE COMMENTS Last administered on 02/01/17 12:43; Start 01/31/17 at 19:45; Stop 02/01/17 at 13:21; Status DC Vancomycin HCl/ Sodium Chloride (Iv Sodium Chloride 0.9% 500ml Bag) 500 ml @ 250 mls/hr 1X ONCE IV Last administered on 01/31/17 20:27; Start 01/31/17 at 20:00; Stop 01/31/17 at 21:59; Status DC Acetaminophen (Tylenol) 650 mg PRN Q6HRS PRN PO MILD PAIN / TEMP Last administered on 02/01/17 21:36; Start 01/31/17 at 21:45 Apixaban (Eliquis) 5 mg BID PO Last administered on 02/01/17 21:36; Start at 22:00 Ascorbic Acid (Vitamin C) 500 mg DAILY PO ; Start 02/01/17 at 09:00; Stop at 09:51; Status DC Aspirin (Ecotrin) 81 mg DAILY PO Last administered on 02/01/17 11:04; Start at 09:00 Atorvastatin Calcium (Lipitor) 40 mg HS PO Last administered on 02/01/17 21:36 ; Start 01/31/17 at 22:00 Bisacodyl (Dulcolax Tab) 10 mg PRN DAILY PRN PO CONSTIPATION; Start 01/31/17 at 21:45; Stop 02/01/17 at 09:51; Status DC Calcium Carbonate/ Glycine (Tums) 500 mg PRN AFTMEALHC PRN PO INDIGESTION; Start 01/31/17 at 21:45 Carvedilol (Coreg) 3.125 mg BIDWMEALS PO ; Start 02/01/17 at 08:00 Colestipol HCl (Colestid) 1 gm BID@10,22 PO Last administered on 02/01/17 21: 36; Start 01/31/17 at 22:00 Darbepoetin Bacilio (Aranesp) 60 mcg WEEKLYHS SQ ; Start 02/07/17 at 21:00 Docusate Sodium (Colace) 100 mg PRN DAILY PRN PO CONS; Start 01/31/17 at 21:45 ; Stop 02/01/17 at 09:51; Status DC Fentanyl (Duragesic 50mcg/ Hr Patch) 1 patch Q3DAYS TD Last administered on 21:36; Start 02/01/17 at 21:00 Hydromorphone HCl (Dilaudid) 2 mg PRN Q6HRS PRN PO PAIN Last administered on 18:01; Start 01/31/17 at 21:45 Insulin Aspart (Novolog) low dose sliding scale TIDACHC SQ ; Start 02/01/17 at 07:30 Insulin Aspart (Novolog) 12 units TIDAC SQ Last administered on 02/01/17 18:13 ; Start 02/01/17 at 07:30 Insulin Detemir (Levemir) 30 units BID SQ ; Start 01/31/17 at 22:00; Stop at 09:58; Status DC Albuterol/ Ipratropium (Duoneb) 3 ml RTQID NEB Last administered on 02/01/17 08:10; Start 02/01/17 at 08:00; Stop 02/01/17 at 11:46; Status DC Magnesium Hydroxide (Milk Of Magnesia) 2,400 mg PRN DAILY PRN PO CONSTIPATION; Start 01/31/17 at 21:45 Magnesium Oxide (Magnesium Oxide) 400 mg TID PO Last administered on 02/01/17 21:36; Start 02/01/17 at 09:00 Metoclopramide HCl (Reglan) 5 mg TIDAC PO Last administered on 02/01/17 12:17 ; Start 02/01/17 at 07:30 Nitroglycerin (Nitrostat) 0.4 mg PRN Q5MIN PRN SL CHEST PAIN; Start 01/31/17 at 21:45 Ondansetron HCl (Zofran Odt) 4 mg PRN Q6HRS PRN PO NAUSEA/VOMITING; Start 01/31 at 21:45; Status UNV Ondansetron HCl (Zofran Odt) 4 mg PRN Q6HRS PRN PO NAUSEA/VOMITING; Start 01/31 at 21:45 Polyethylene Glycol (miraLAX PACKET) 17 gm DAILY PO ; Start 02/01/17 at 09:00 Non-Formulary Medication 30 unit BID SQ ; Start 02/01/17 at 09:00; Status UNV Pantoprazole Sodium (Protonix) 40 mg DAILYAC PO Last administered on 02/01/17 09:05; Start 02/01/17 at 07:30 Dextrose (Dextrose 50%-Water Syringe) 12.5 gm PRN Q15MIN PRN IV SEE COMMENTS; Start 02/01/17 at 07:00 Info (Anti-Coagulation Monitoring By Pharmacy) 1 each PRN DAILY PRN MC SEE COMMENTS Last administered on 02/01/17 12:47; Start 02/01/17 at 07:15 Nystatin (Nystop) 1 stephanie BID TP Last administered on 02/01/17 10:00; Start at 10:00; Stop 02/08/17 at 09:59 Insulin Detemir (Levemir) 24 units BID SQ ; Start 02/01/17 at 21:00 Albuterol/ Ipratropium (Duoneb) 3 ml RTQID PRN NEB SHORTNESS OF BREATH; Start 02/01/17 at 11:45 Vancomycin HCl 1 each 1X ONCE MC ; Start 02/02/17 at 06:00; Stop 02/02/17 at 06 :00; Status DC Active Scripts Active Novolog Flexpen (Insulin Aspart) 100 Unit/1 Ml Insuln.pen 12 Unit SQ TIDAC Hydromorphone Hcl 4 Mg Tablet 0.5 Tab PO PRN Q6HRS PRN Tylenol (Acetaminophen) 325 Mg Tablet 650 Mg PO PRN Q6HRS PRN Metoclopramide Hcl 10 Mg Tablet 5 Mg PO TIDAC Aranesp Syringe (Darbepoetin Bacilio In Polysorbat) 60 Mcg/0.3 Ml Disp.syrin 60 Mcg SQ WEEKLYHS Colestid (Colestipol Hcl) 1 Gm Tablet 1 Gm PO BID@ Calcium Carbonate 200 Mg Tab.chew 500 Mg PO PRN AFTMEALHC PRN Vitamin C (Ascorbic Acid) 500 Mg Tablet 500 Mg PO DAILY Levemir (Insulin Detemir) 100 Unit/1 Ml Vial 30 Unit SQ BID Ondansetron Odt (Ondansetron) 4 Mg Tab.rapdis 4 Mg PO PRN Q6HRS PRN Eliquis (Apixaban) 5 Mg Tablet 5 Mg PO BID FENTANYL 50mcg/hr (Fentanyl) 1 Each Patch.td72 1 Patch TD Q3DAYS Coreg (Carvedilol) 3.125 Mg Tablet 1 Tab PO BID Novolog Flexpen (Insulin Aspart) 100 Unit/1 Ml Insuln.pen 0-8 Unit SQ TID AC Zofran Odt (Ondansetron) 4 Mg Tab.rapdis 1 Tab SL PRN Q6HRS PRN Miralax (Polyethylene Glycol 3350) 17 Gm Powd.pack 17 Gm PO DAILY Milk Of Magnesia (Magnesium Hydroxide) 400 Mg/5 Ml Oral.susp 2,400 Mg PO PRN DAILY PRN Bisacodyl 5 Mg Tablet.dr 10 Mg PO PRN DAILY PRN Duoneb 0.5-3(2.5) Mg/3 Ml (Albuterol/Ipratropium) 3 Ml Ampul.neb 3 Ml NEB RTQID Reported Levemir Flextouch (Insulin Detemir) 100 Unit/1 Ml Insuln.pen 30 Unit SQ BID Magnesium Oxide 400 Mg Tablet 400 Mg PO TID Docusate Sodium 100 Mg Capsule 100 Mg PO PRN DAILY PRN Aspir 81 (Aspirin) 81 Mg Tablet.dr 81 Mg PO DAILY Nitrostat (Nitroglycerin) 0.4 Mg Tab.subl 0.4 Mg SL PRN Q5MIN PRN Atorvastatin Calcium 40 Mg Tablet 40 Mg PO HS Omeprazole 20 Mg Capsule. 20 Mg PO DAILY Allergies Allergies: Coded Allergies: Penicillins (Verified Allergy, Severe, causes swelling of throat, 01/15/17) Sulfa (Sulfonamide Antibiotics) (Verified Allergy, Severe, causes throat to swell, 01/15/17) amoxicillin (Verified Allergy, Severe, causes swelling of throat, 01/15/17) clarithromycin (Verified Allergy, Severe, causes throat to swell, 01/15/17) codeine (Verified Allergy, Severe, "closed up my throat and itching", 01/31) tolerates percocet, Dilaudid is home med hydrocodone (Verified Allergy, Severe, "closes up my throat and itching", 01/31/17) tolerates percocet, Dilaudid is home med silver sulfadiazine (Verified Allergy, Severe, Rash, 01/15/17) oxycodone (Verified Allergy, Intermediate, 01/15/17) tramadol (Verified Allergy, Intermediate, Nausea and Vomiting, 01/15/17) I S O L A T I O N *CONTACT* (Verified Allergy, Unknown, 01/15/17) mrsa ROS Review of System As in HPI Otherwise negative on a ten point scale. Physical Exam Physical Exam VSS. Afebrile. Somnolent. Neck : Trach Lungs : Decreased bases CVS : RRR Abd: Soft, benign in appearance. Portly Ext: Stable edema Neuro : Grossly intact. Vitals VITALS Vital Signs Date Time Temp Pulse Resp B/P Pulse Ox O2 Delivery O2 Flow Rate FiO2 02/01/17 19:30 98.0 88 20 98/50 95 Nasal Cannula 2.0 98.0 Labs Labs Laboratory Tests Test 01/31/17 18:06 01/31/17 20:57 02/01/17 01:25 02/01/17 08:00 White Blood Count 9.5x10^3/uL (4.0-11.0) Red Blood Count 3.52x10^6/uL (3.50-5.40) Hemoglobin 9.9g/dL (12.0-15.5) Hematocrit 29.7% (36.0-47.0) Mean Corpuscular Volume 84fL (79-100) Mean Corpuscular Hemoglobin 28pg (25-35) Mean Corpuscular Hemoglobin Concent 33g/dL (31-37) Red Cell Distribution Width 18.0% (11.5-14.5) Platelet Count 242x10^3/uL (140-400) Neutrophils (%) (Auto) 76% (31-73) Lymphocytes (%) (Auto) 11% (24-48) Monocytes (%) (Auto) 7% (0-9) Eosinophils (%) (Auto) 5% (0-3) Basophils (%) (Auto) 1% (0-3) Neutrophils # (Auto) 7.3x10^3uL (1.8-7.7) Lymphocytes # (Auto) 1.1x10^3/uL (1.0-4.8) Monocytes # (Auto) 0.6x10^3/uL (0.0-1.1) Eosinophils # (Auto) 0.5x10^3/uL (0.0-0.7) Basophils # (Auto) 0.1x10^3/uL (0.0-0.2) Sodium Level 135mmol/L (136-145) Potassium Level 3.8mmol/L (3.5-5.1) Chloride Level 100mmol/L (98-107) Carbon Dioxide Level 27mmol/L (21-32) Anion Gap 8 (6-14) Blood Urea Nitrogen 13mg/dL (7-20) Creatinine 3.2mg/dL (0.6-1.0) Estimated GFR (Cockcroft-Gault) 15.5 Glucose Level 85mg/dL (70-99) Calcium Level 8.2mg/dL (8.5-10.1) Troponin I Quantitative 0.028ng/mL (0.000-0.055) 0.021ng/mL (0.000-0.055) 0.024ng/mL (0.000-0.055) Glucose (Fingerstick) 68mg/dL (70-99) Test 02/01/17 20:52 Glucose (Fingerstick) 126mg/dL (70-99) Laboratory Tests Test 02/01/17 01:25 02/01/17 08:00 02/01/17 20:52 Troponin I Quantitative 0.021ng/mL (0.000-0.055) 0.024ng/mL (0.000-0.055) Glucose (Fingerstick) 126mg/dL (70-99) Assessment/Plan Assessment/Plan A/P: ESRD CHEST PAIN HTN w CKD. HD in am. Supportive care Labs better/stable. . CPM. JOSE ANTONIO MAGDALENO MD Feb 01, 2017 23:25
[2017-02-02] MEDS: HYDROmorphone 2 MG TABLET PO PRN ×3 (00:41→23:38)
[2017-02-02 03:00] VITALS: BP 113/68
[2017-02-02] MEDS ORDERED: HYDROmorphone 2 MG TABLET PO ONE (04:00)
[2017-02-02 05:12] LABS: BASO # 0.1 x10^3/uL (0.0-0.2); BASO % 1 % (0-3); EOS % 4 % (0-3); LYMPH # 1.2 x10^3/uL (1.0-4.8); LYMPH % 15 % (24-48); MEAN CORPUSCULAR HEMOGLOBIN 28 pg (25-35); MEAN CORPUSCULAR HGB CONC 32 g/dL (31-37); MEAN CORPUSCULAR VOLUME 86 fL (79-100); MONO % 6 % (0-9); NEUT % 73 % (31-73); PLATELET COUNT 214 x10^3/uL (140-400); RED BLOOD COUNT 3.24 x10^6/uL (3.50-5.40); RED CELL DISTRIBUTION WIDTH 18.3 % (11.5-14.5); WHITE BLOOD COUNT 8.1 x10^3/uL (4.0-11.0)
[2017-02-02 05:39] LABS: ALBUMIN 2.2 g/dL (3.4-5.0); ALBUMIN/GLOBULIN RATIO 0.6 (1.0-1.7); POTASSIUM 4.4 mmol/L (3.5-5.1); TOTAL BILIRUBIN 0.5 mg/dL (0.2-1.0); TOTAL PROTEIN 5.7 g/dL (6.4-8.2)
[2017-02-02] MEDS ORDERED: VANCOMYCIN RANDOM LEVEL. MC ONE (06:00)
[2017-02-02] MEDS: INSULIN ASPART 300 UNITS/3 ML INSULN.PEN SQ SCH ×7 (07:30→21:00)
[2017-02-02 07:45] VITALS: BP 110/63
--- NOTE | 2017-02-02 08:30 | PDOC ---
XIYVONNE Ankit [employer] 02/02/17 0830: IM PROGRESS NOTES- Subjective Subjective reports tolerating dialysis better OP. Pain R neck continues at site tunnelled dialysis cath concerned retaining urine-explained will have decreased UOP with HD/ESRD Bleeding from foot wound last night. Objective Objective anxious regarding being discharged Vitals Vital Signs Date Time Temp Pulse Resp B/P Pulse Ox O2 Delivery O2 Flow Rate FiO2 02/02/17 03:00 98.3 91 20 113/68 97 Nasal Cannula 2.0 98.3 Input & Output Intake and Output 02/02/17 06:59 Intake Total 1760 ml Output Total 500 ml Balance 1260 ml Intake Oral 1760 ml Output Urine Total 300 ml Emesis 200 ml Physical Exam Physical Exam General appearance - alert,well appearing, and in mild distress r/t anxiousness Mental Status - alert, oriented to person, place, and time, anxious Head - normal Chest - clear to auscultation, no wheezes, rales or rhonchi, decreased bases Heart - S1 and S2 normal Abdomen - soft, nontender, nondistended, obese, BS+ Neurological - no acute focal neurological deficit noted Musculoskeletal - no acute pain Extremities - ++ edema, 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, dressing R foot intact, boot off Skin - warm and dry Labs Laboratory Tests Test 01/31/17 18:06 01/31/17 20:57 02/01/17 01:25 02/01/17 08:00 White Blood Count 9.5x10^3/uL (4.0-11.0) Red Blood Count 3.52x10^6/uL (3.50-5.40) Hemoglobin 9.9g/dL (12.0-15.5) Hematocrit 29.7% (36.0-47.0) Mean Corpuscular Volume 84fL (79-100) Mean Corpuscular Hemoglobin 28pg (25-35) Mean Corpuscular Hemoglobin Concent 33g/dL (31-37) Red Cell Distribution Width 18.0% (11.5-14.5) Platelet Count 242x10^3/uL (140-400) Neutrophils (%) (Auto) 76% (31-73) Lymphocytes (%) (Auto) 11% (24-48) Monocytes (%) (Auto) 7% (0-9) Eosinophils (%) (Auto) 5% (0-3) Basophils (%) (Auto) 1% (0-3) Neutrophils # (Auto) 7.3x10^3uL (1.8-7.7) Lymphocytes # (Auto) 1.1x10^3/uL (1.0-4.8) Monocytes # (Auto) 0.6x10^3/uL (0.0-1.1) Eosinophils # (Auto) 0.5x10^3/uL (0.0-0.7) Basophils # (Auto) 0.1x10^3/uL (0.0-0.2) Sodium Level 135mmol/L (136-145) Potassium Level 3.8mmol/L (3.5-5.1) Chloride Level 100mmol/L (98-107) Carbon Dioxide Level 27mmol/L (21-32) Anion Gap 8 (6-14) Blood Urea Nitrogen 13mg/dL (7-20) Creatinine 3.2mg/dL (0.6-1.0) Estimated GFR (Cockcroft-Gault) 15.5 Glucose Level 85mg/dL (70-99) Calcium Level 8.2mg/dL (8.5-10.1) Troponin I Quantitative 0.028ng/mL (0.000-0.055) 0.021ng/mL (0.000-0.055) 0.024ng/mL (0.000-0.055) Glucose (Fingerstick) 68mg/dL (70-99) Test 02/01/17 08:30 02/01/17 11:31 02/01/17 16:55 02/01/17 20:52 Glucose (Fingerstick) 106mg/dL (70-99) 105mg/dL (70-99) 165mg/dL (70-99) 126mg/dL (70-99) Test 02/02/17 04:55 White Blood Count 8.1x10^3/uL (4.0-11.0) Red Blood Count 3.24x10^6/uL (3.50-5.40) Hemoglobin 9.0g/dL (12.0-15.5) Hematocrit 28.0% (36.0-47.0) Mean Corpuscular Volume 86fL (79-100) Mean Corpuscular Hemoglobin 28pg (25-35) Mean Corpuscular Hemoglobin Concent 32g/dL (31-37) Red Cell Distribution Width 18.3% (11.5-14.5) Platelet Count 214x10^3/uL (140-400) Neutrophils (%) (Auto) 73% (31-73) Lymphocytes (%) (Auto) 15% (24-48) Monocytes (%) (Auto) 6% (0-9) Eosinophils (%) (Auto) 4% (0-3) Basophils (%) (Auto) 1% (0-3) Neutrophils # (Auto) 6.0x10^3uL (1.8-7.7) Lymphocytes # (Auto) 1.2x10^3/uL (1.0-4.8) Monocytes # (Auto) 0.5x10^3/uL (0.0-1.1) Eosinophils # (Auto) 0.4x10^3/uL (0.0-0.7) Basophils # (Auto) 0.1x10^3/uL (0.0-0.2) Sodium Level 137mmol/L (136-145) Potassium Level 4.4mmol/L (3.5-5.1) Chloride Level 104mmol/L (98-107) Carbon Dioxide Level 25mmol/L (21-32) Anion Gap 8 (6-14) Blood Urea Nitrogen 18mg/dL (7-20) Creatinine 4.0mg/dL (0.6-1.0) Estimated GFR (Cockcroft-Gault) 12.0 BUN/Creatinine Ratio 5 (6-20) Glucose Level 110mg/dL (70-99) Calcium Level 8.0mg/dL (8.5-10.1) Magnesium Level 2.0mg/dL (1.8-2.4) Total Bilirubin 0.5mg/dL (0.2-1.0) Aspartate Amino Transf (AST/SGOT) 39U/L (15-37) Alanine Aminotransferase (ALT/SGPT) 30U/L (14-59) Alkaline Phosphatase 184U/L (46-116) Total Protein 5.7g/dL (6.4-8.2) Albumin 2.2g/dL (3.4-5.0) Albumin/Globulin Ratio 0.6 (1.0-1.7) Laboratory Tests Test 02/01/17 08:00 02/01/17 08:30 02/01/17 11:31 02/01/17 16:55 Troponin I Quantitative 0.024ng/mL (0.000-0.055) Glucose (Fingerstick) 106mg/dL (70-99) 105mg/dL (70-99) 165mg/dL (70-99) Test 02/01/17 20:52 02/02/17 04:55 Glucose (Fingerstick) 126mg/dL (70-99) White Blood Count 8.1x10^3/uL (4.0-11.0) Red Blood Count 3.24x10^6/uL (3.50-5.40) Hemoglobin 9.0g/dL (12.0-15.5) Hematocrit 28.0% (36.0-47.0) Mean Corpuscular Volume 86fL (79-100) Mean Corpuscular Hemoglobin 28pg (25-35) Mean Corpuscular Hemoglobin Concent 32g/dL (31-37) Red Cell Distribution Width 18.3% (11.5-14.5) Platelet Count 214x10^3/uL (140-400) Neutrophils (%) (Auto) 73% (31-73) Lymphocytes (%) (Auto) 15% (24-48) Monocytes (%) (Auto) 6% (0-9) Eosinophils (%) (Auto) 4% (0-3) Basophils (%) (Auto) 1% (0-3) Neutrophils # (Auto) 6.0x10^3uL (1.8-7.7) Lymphocytes # (Auto) 1.2x10^3/uL (1.0-4.8) Monocytes # (Auto) 0.5x10^3/uL (0.0-1.1) Eosinophils # (Auto) 0.4x10^3/uL (0.0-0.7) Basophils # (Auto) 0.1x10^3/uL (0.0-0.2) Sodium Level 137mmol/L (136-145) Potassium Level 4.4mmol/L (3.5-5.1) Chloride Level 104mmol/L (98-107) Carbon Dioxide Level 25mmol/L (21-32) Anion Gap 8 (6-14) Blood Urea Nitrogen 18mg/dL (7-20) Creatinine 4.0mg/dL (0.6-1.0) Estimated GFR (Cockcroft-Gault) 12.0 BUN/Creatinine Ratio 5 (6-20) Glucose Level 110mg/dL (70-99) Calcium Level 8.0mg/dL (8.5-10.1) Magnesium Level 2.0mg/dL (1.8-2.4) Total Bilirubin 0.5mg/dL (0.2-1.0) Aspartate Amino Transf (AST/SGOT) 39U/L (15-37) Alanine Aminotransferase (ALT/SGPT) 30U/L (14-59) Alkaline Phosphatase 184U/L (46-116) Total Protein 5.7g/dL (6.4-8.2) Albumin 2.2g/dL (3.4-5.0) Albumin/Globulin Ratio 0.6 (1.0-1.7) Meds Current Medications Albuterol/ Ipratropium (Duoneb) 3 ml RTQID NEB Last administered on 02/01/17 08:10; Start 02/01/17 at 08:00; Stop 02/01/17 at 11:46; Status DC Albuterol/ Ipratropium (Duoneb) 3 ml RTQID PRN NEB SHORTNESS OF BREATH; Start 02/01/17 at 11:45 Ascorbic Acid (Vitamin C) 500 mg DAILY PO ; Start 02/01/17 at 09:00; Stop at 09:51; Status DC Aspirin (Ecotrin) 81 mg DAILY PO Last administered on 02/01/17 11:04; Start at 09:00 Carvedilol (Coreg) 3.125 mg BIDWMEALS PO ; Start 02/01/17 at 08:00 Darbepoetin Bacilio (Aranesp) 60 mcg WEEKLYHS SQ ; Start 02/07/17 at 21:00 Fentanyl (Duragesic 50mcg/ Hr Patch) 1 patch Q3DAYS TD Last administered on 21:36; Start 02/01/17 at 21:00 Hydromorphone HCl (Dilaudid) 1 mg 1X ONCE PO Last administered on 02/02/17 04 :00; Start 02/02/17 at 04:00; Stop 02/02/17 at 04:01; Status DC Insulin Detemir (Levemir) 24 units BID SQ ; Start 02/01/17 at 21:00 Magnesium Oxide (Magnesium Oxide) 400 mg TID PO Last administered on 02/01/17 21:36; Start 02/01/17 at 09:00 Non-Formulary Medication 30 unit BID SQ ; Start 02/01/17 at 09:00; Status UNV Nystatin (Nystop) 1 stephanie BID TP Last administered on 02/01/17 10:00; Start at 10:00; Stop 02/08/17 at 09:59 Polyethylene Glycol (miraLAX PACKET) 17 gm DAILY PO ; Start 02/01/17 at 09:00 Vancomycin HCl 1 each 1X ONCE MC ; Start 02/02/17 at 06:00; Stop 02/02/17 at 06 :00; Status DC Assessment Assessment IMPRESSION: 1. Right upper chest pain -MS r/t tunnelled dialysis catheter, not CAD 2. ESRD with recent ARF/CKD III ATN requiring HD 3x weekly . 3. DVT of the RLE IVC filter on 12/11/2016, on Eliquis with h/o PE, 4. 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 Chronic congestive heart failure, systolic ejection fraction of 30-35%, nonacute on admission 6. Diarrhea with previous negative C. diff improving with colestid 1gm BID, did not improve with cholestyramine. 7. Diabetes mellitus type 2 with neuropathy, peripheral vascular disease and chronic insulin use. 8. Anxiety and depression. 9. Hypertension. 10. Hyperlipidemia. 11. Coronary artery disease with history of myocardial infarction and percutaneous coronary intervention with stent placement. 12. Gastroesophageal reflux disease. 13. Chronic low back pain. 14. History of hypercapnic and hypoxic respiratory failure with narcotics. 15. Chronic obstructive pulmonary edema. 16. History of cerebrovascular accident. 17. Morbid obesity. 18. Obstructive sleep apnea, on oxygen by 3 liters nasal cannula at bedtime, and CPAP intolerant. 19. History of noncompliance. 20. anemia CD renal failure PLAN: R sided chest pain cardiology consult neg CAD r/t tunnelled dialysis catheter ESRD HD 3 time weekly renal consult Episode last week crying/pain all over after dialysis. labs drawn and given extra K and Mg. Wanted readmit b/c dialysis here did not hurt like it did out patient. D/W DPOA and pt-agreed to stay [place] [facility]. Admit Na 135 02/02 137 K 3.8 4.4 Mg 2.0 DM II FSBS/SSI BS 105-1065 Novulin 12u TID ac Levemir 24u at hs osteo R jerry/diabetic ulcer wound care Vanco IV ID consult BC 01/31-negative anemia CD Admit 9.9 02/02 9.0 aranesp injections CHF not acute Admit wt 295 02/02 297.12 daily weights nausea through night when anxious-has n/v diarrhea none since admit DVT/GI prophylaxis eliquis PPI For further plan of care, please refer to the orders. DC initiated for [facility] Plan Plan For more details regarding further plans, please refer to the orders. Nutrition Consultation Dietary Evaluation: Recommendations by RD: Increase Calorie Intake, Protein supplementation Comments: Rec. Novasource Renal TID Rec. a daily Nephro-Tracey and 500 mg Vitamin C BID to aide with wound healing Expected Outcomes/Goals: meet 75% estimated nutrition needs Malnutrition Findings: Reduced Food Safety Scientist Strength: N/A Malnutrition related to morbid: No Weight Status: Morbidly Obese CHELE SINGH MD 02/02/17 1420: IM PROGRESS NOTES- Assessment Assessment The patient was seen and examined by me. Chart reviewed and plan of care formulated. Discussed with, reviewed and agree with SUPERINTENDENT [employer] TERMINAL's notes, plan of care and orders with modifications as necessary. For more details regarding further plans, please refer to the orders. D/w pt and family. YVONNE LAYNE APRN Feb 02, 2017 08:30 CHELE SINGH MD Feb 02, 2017 14:20
--- NOTE | 2017-02-02 08:36 | DISCH ---
DISCHARGE FINAL DIAGNOSIS Problems Medical Problems: (1) Chest pain Status: Acute CONDITION ON DISCHARGE: Stable SNF STAY <30 DAYS: Yes (PT OT consult ) POST DISCHARGE ORDERS ACTIVITY ORDERS: Activity as tolerated (non weight bearing R foot ) WEIGHT BEARING STATUS: Non weight bearing (R foot ) BATHING ORDERS: Shower-keep dressing dry DIET AFTER DISCHARGE: Renal (hemodialysis cardiac regular NO ADA) OTHER WOUND INSTRUCTIONS: keep legs elevated-Recliner in room CHECKS AFTER DISCHARGE CHECKS AFTER DISCHARGE: Check blood press - daily (VS per routine ), Check blood sugar, ac/hs, Weigh Yourself Daily (Daily weight, h/o CHF-ESRD ) FOLLOW-UP PHYSICIAN FOLLOW-UP: Admit to Dr. Johnson ADDITIONAL FOLLOW-UP: [facility] wound care out patient TREATMENT/EQUIPMENT ORDERS ADAPTIVE EQUIPMENT NEEDED: Raised toilet seat w/arms, Wheelchair RESPIRATORY EQUIPMENT NEEDED: Oxygen (2-4L NC ), Nebulizer (duoneb qid ) YVONNE LAYNE APRN Feb 02, 2017 08:36
[2017-02-02] MEDS ORDERED: Hydromorphone Hcl PO (08:39)
[2017-02-02] MEDS ORDERED: INSU100I27 SQ (08:39)
[2017-02-02] MEDS ORDERED: NYST60PO TP (08:39)
--- NOTE | 2017-02-02 08:47 | DISCH ---
DISCHARGE WITH HOME HEALTH DISCHARGE INFORMATION: Final Diagnosis: Problems Medical Problems: (1) Chest pain Status: Acute Condition on Discharge: Stable HOME HEALTH: Face to Face: I certify this patient is under my care and that my nurse practitioner working with me, had a face to face encounter that meets the physician face to face encounter requirements with this patient on 02/02/17. Medical Condition(s): Other (wound R foot, ESRD, DM, CHF diastolic ) [facility] For: Assess/Skilled Observatio Physical Therapy For: Evalulation/Treatment Occupational Therapy For: Evaluation/Treatment FOLLOW-UP: Follow up with: Dr. Johnson 3-5 days Follow Up With: Wound care clinic weekly TREATMENT/EQUIPMENT ORDERS Adaptive Equipment Issued: Wheelchair Discharge Respiratory Equipmen: Oxygen (2-4L NC ), Nebulizer (QID ) CERTIFICATION STATEMENT: Certification Statement: Certification Statement: Based on the above finding, I certify that this patient is confined to the home and needs intermittent senior care care, physical therapy and/or speech therapy, or continues to need occupational therapy.~ This patient is under my care, and I have initiated the establishment of the plan of care.~ This patient will be followed by myself or a community physician who will periodically review the plan of care. YVONNE LAYNE APRN Feb 02, 2017 08:47
[2017-02-02] MEDS: ANTI-COAG MONITOR BY PHARMACY. MC PRN (08:58)
[2017-02-02] MEDS: INSULIN DETEMIR 300 UNITS/3 ML INSULN.PEN. SQ SCH ×2 (09:00→21:00)
[2017-02-02] MEDS: APIXABAN 5 MG TABLET. PO SCH ×2 (09:16→20:19)
[2017-02-02] MEDS: CARVEDILOL 3.125 MG TABLET. PO SCH ×2 (09:16→17:00)
[2017-02-02] MEDS: COLESTIPOL HCL 1 GM TABLET PO SCH ×2 (09:16→20:19)
[2017-02-02] MEDS: METOCLOPRAMIDE 10 MG TABLET. PO SCH ×3 (09:17→16:30)
[2017-02-02] MEDS: PANTOPRAZOLE 40 MG TABLET.DR. PO SCH (09:17)
[2017-02-02] MEDS: NYSTATIN TOPICAL POWDER 15GM BOTTLE. TP SCH ×2 (09:19→21:00)
[2017-02-02] MEDS: MAGNESIUM OXIDE 400 MG TABLET PO SCH ×3 (09:19→20:19)
[2017-02-02] MEDS: ASPIRIN ENTERIC COATED 81 MG TABLET.DR. PO SCH (09:19)
[2017-02-02 10:39] VITALS: BP 94/56
--- NOTE | 2017-02-02 12:23 | PDOC ---
SUBJECTIVE ROS ESRD/ anasarca doign Ok voerall but still some neck pain CVS: no Orthopnea, no CP RESP: no SOB, no CARRION GI: no Nausea, no Vomiting : no Dysuria, no Urgency OBJECTIVE Vital Signs Vital Signs Date Time Temp Pulse Resp B/P Pulse Ox O2 Delivery O2 Flow Rate FiO2 02/02/17 10:39 98.2 92 18 94/56 95 Nasal Cannula 2.0 98.2 I & 0 Intake and Output 02/02/17 07:00 Intake Total 1760 ml Output Total 500 ml Balance 1260 ml Intake Oral 1760 ml Output Urine Total 300 ml Emesis 200 ml PHYSICAL EXAM Physical Exam GEN: Awake, Oriented x 3, In no distress EYES: Vision Unchanged, Conjunctiva Normal EN: No EN Drainage, Mucous Membranes moist NECK: no JVD, min JVP, Supple, no Thyromegaly CVS: S1S2, sys Murmur, No Gallop, No Rub,+ Edema RESP: no Rales, no Rhonchi,no Acc. Muscle Use GI: BS + ve, NO Bruit, Non Tender, Non Distended - obese : no CVA tenderness, no Suprapubic Tenderness DIAGNOSIS/ASSESSMENT Assessment & Plan ESRD: Dialysis as below F 180 NR 3.5 Hrs 3 K 2.5 Ca 140 Na 40 HC03 Qb 350 + Qd 500+ Heparin 0 Units Uf 1-2 Kgs or to dry weight as tolerated May give 25-50 gms of 25% Albumin if needed to maintain Hemodynamic stability Treatment plan reviewed and discussed with assistant women's soccer coach ANEMIA; Aranap as ordered, Transfuse with next HD as needed H ypoTN: Current meds as reviewed. See orders for changes. this may limit Uf on Hd Edema - Uf as jasiel Neck pain - ? due to HD Cath infection vs Post-procedural pain - NGTD from Bl Cx Discussed Plan of Care with family [] at bedside [] over the phone Problems: COMMENT/RELEVANT DATA Meds Current Medications Medications (Trade) Dose Ordered Sig/Ant Start Time Stop Time Status Last Admin Dose Admin Acetaminophen (Tylenol) 650 mg PRN Q6HRS PRN 01/31/17 21:45 02/01/17 21:36 650 MG Albuterol/ Ipratropium (Duoneb) 3 ml RTQID PRN 02/01/17 11:45 Apixaban (Eliquis) 5 mg BID 01/31/17 22:00 02/02/17 09:16 5 MG Ascorbic Acid (Vitamin C) 500 mg DAILY 02/01/17 09:00 02/01/17 09:51 DC Aspirin (Ecotrin) 81 mg DAILY 02/01/17 09:00 02/02/17 09:19 81 MG Atorvastatin Calcium (Lipitor) 40 mg HS 01/31/17 22:00 02/01/17 21:36 40 MG Bisacodyl (Dulcolax Tab) 10 mg PRN DAILY PRN 01/31/17 21:45 02/01/17 09:51 DC Calcium Carbonate/ Glycine (Tums) 500 mg PRN AFTMEALHC PRN 01/31/17 21:45 02/02/17 00:41 500 MG Carvedilol (Coreg) 3.125 mg BIDWMEALS 02/01/17 08:00 02/02/17 09:16 3.125 MG Colestipol HCl (Colestid) 1 gm BID@01/31/17 22:00 02/02/17 09:16 1 GM Darbepoetin Bacilio (Aranesp) 60 mcg WEEKLYHS 02/07/17 21:00 Dextrose (Dextrose 50%-Water Syringe) 12.5 gm PRN Q15MIN PRN 02/01/17 07:00 Docusate Sodium (Colace) 100 mg PRN DAILY PRN 01/31/17 21:45 02/01/17 09:51 DC Fentanyl (Duragesic 50mcg/ Hr Patch) 1 patch Q3DAYS 02/01/17 21:00 02/01/17 21:36 1 PATCH Hydromorphone HCl (Dilaudid) 1 mg 1X ONCE 02/02/17 04:00 02/02/17 04:01 DC 02/02/17 04:00 1 MG Info (Anti-Coagulation Monitoring By Pharmacy) 1 each PRN DAILY PRN 02/01/17 07:15 02/02/17 08:58 1 EACH Insulin Aspart (Novolog) 12 units TIDAC 02/01/17 07:30 02/01/17 18:13 12 UNITS Insulin Detemir (Levemir) 24 units BID 02/01/17 21:00 Magnesium Hydroxide (Milk Of Magnesia) 2,400 mg PRN DAILY PRN 01/31/17 21:45 Magnesium Oxide (Magnesium Oxide) 400 mg TID 02/01/17 09:00 02/02/17 09:19 400 MG Metoclopramide HCl (Reglan) 5 mg TIDAC 02/01/17 07:30 02/02/17 09:17 5 MG Morphine Sulfate 4 mg PRN Q2HR PRN 01/31/17 19:45 02/01/17 19:44 DC 02/01/17 07:58 4 MG Nitroglycerin (Nitrostat) 0.4 mg PRN Q5MIN PRN 01/31/17 21:45 Non-Formulary Medication 30 unit BID 02/01/17 09:00 UNV Nystatin (Nystop) 1 stephanie BID 02/01/17 10:00 02/08/17 09:59 02/02/17 09:19 1 STEPHANIE Ondansetron HCl (Zofran Odt) 4 mg PRN Q6HRS PRN 01/31/17 21:45 02/02/17 00:41 4 MG Ondansetron HCl (Zofran) 4 mg PRN Q8HRS PRN 01/31/17 19:45 02/01/17 19:44 DC Pantoprazole Sodium (Protonix) 40 mg DAILYAC 02/01/17 07:30 02/02/17 09:17 40 MG Polyethylene Glycol (miraLAX PACKET) 17 gm DAILY 02/01/17 09:00 02/02/17 08:34 DC Vancomycin HCl 1 each 1X ONCE 02/02/17 06:00 02/02/17 06:00 DC Vancomycin HCl 1 each 1 each PRN DAILY PRN 01/31/17 19:45 02/01/17 13:21 DC 02/01/17 12:43 1 EACH Vancomycin HCl/ Sodium Chloride (Iv Sodium Chloride 0.9% 500ml Bag) 500 ml @ 250 mls/hr 1X ONCE 01/31/17 20:00 01/31/17 21:59 DC 01/31/17 20:27 250 MLS/HR Lab Laboratory Tests Test 02/01/17 16:55 02/01/17 20:52 02/02/17 04:55 02/02/17 11:36 Glucose (Fingerstick) 165mg/dL (70-99) 126mg/dL (70-99) 107mg/dL (70-99) White Blood Count 8.1x10^3/uL (4.0-11.0) Red Blood Count 3.24x10^6/uL (3.50-5.40) Hemoglobin 9.0g/dL (12.0-15.5) Hematocrit 28.0% (36.0-47.0) Mean Corpuscular Volume 86fL (79-100) Mean Corpuscular Hemoglobin 28pg (25-35) Mean Corpuscular Hemoglobin Concent 32g/dL (31-37) Red Cell Distribution Width 18.3% (11.5-14.5) Platelet Count 214x10^3/uL (140-400) Neutrophils (%) (Auto) 73% (31-73) Lymphocytes (%) (Auto) 15% (24-48) Monocytes (%) (Auto) 6% (0-9) Eosinophils (%) (Auto) 4% (0-3) Basophils (%) (Auto) 1% (0-3) Neutrophils # (Auto) 6.0x10^3uL (1.8-7.7) Lymphocytes # (Auto) 1.2x10^3/uL (1.0-4.8) Monocytes # (Auto) 0.5x10^3/uL (0.0-1.1) Eosinophils # (Auto) 0.4x10^3/uL (0.0-0.7) Basophils # (Auto) 0.1x10^3/uL (0.0-0.2) Sodium Level 137mmol/L (136-145) Potassium Level 4.4mmol/L (3.5-5.1) Chloride Level 104mmol/L (98-107) Carbon Dioxide Level 25mmol/L (21-32) Anion Gap 8 (6-14) Blood Urea Nitrogen 18mg/dL (7-20) Creatinine 4.0mg/dL (0.6-1.0) Estimated GFR (Cockcroft-Gault) 12.0 BUN/Creatinine Ratio 5 (6-20) Glucose Level 110mg/dL (70-99) Calcium Level 8.0mg/dL (8.5-10.1) Magnesium Level 2.0mg/dL (1.8-2.4) Total Bilirubin 0.5mg/dL (0.2-1.0) Aspartate Amino Transf (AST/SGOT) 39U/L (15-37) Alanine Aminotransferase (ALT/SGPT) 30U/L (14-59) Alkaline Phosphatase 184U/L (46-116) Total Protein 5.7g/dL (6.4-8.2) Albumin 2.2g/dL (3.4-5.0) Albumin/Globulin Ratio 0.6 (1.0-1.7) PAIGE MOSQUEDA MD Feb 02, 2017 12:22
[2017-02-02] MEDS ORDERED: MAGNESIUM SULFATE 2GM 50 ML IV PRN (12:30)
[2017-02-02] MEDS ORDERED: IV NORMAL SALINE 1000ML BAG 1,000 ML IV PRN (14:32)
[2017-02-02] MEDS ORDERED: 0.9 % SODIUM CHLORIDE 10 ML DISP.SYRIN. IV PRN ×2 (14:45)
[2017-02-02] MEDS ORDERED: DIALYSIS PATIENT. MC PRN ×2 (14:45)
--- NOTE | 2017-02-02 15:56 | PDOC ---
PULMONARY PROGRESS NOTES Subjective PT FEELS BETTER Vitals Vital Signs Date Time Temp Pulse Resp B/P Pulse Ox O2 Delivery O2 Flow Rate FiO2 02/02/17 10:39 98.2 92 18 94/56 95 Nasal Cannula 2.0 98.2 General: Alert, No acute distress Lungs: Clear Cardiovascular: S1, S2 Abdomen: Soft, Non-tender Extremities: Other Labs Laboratory Tests Test 01/31/17 18:06 01/31/17 20:57 02/01/17 01:25 02/01/17 08:00 White Blood Count 9.5x10^3/uL (4.0-11.0) Red Blood Count 3.52x10^6/uL (3.50-5.40) Hemoglobin 9.9g/dL (12.0-15.5) Hematocrit 29.7% (36.0-47.0) Mean Corpuscular Volume 84fL (79-100) Mean Corpuscular Hemoglobin 28pg (25-35) Mean Corpuscular Hemoglobin Concent 33g/dL (31-37) Red Cell Distribution Width 18.0% (11.5-14.5) Platelet Count 242x10^3/uL (140-400) Neutrophils (%) (Auto) 76% (31-73) Lymphocytes (%) (Auto) 11% (24-48) Monocytes (%) (Auto) 7% (0-9) Eosinophils (%) (Auto) 5% (0-3) Basophils (%) (Auto) 1% (0-3) Neutrophils # (Auto) 7.3x10^3uL (1.8-7.7) Lymphocytes # (Auto) 1.1x10^3/uL (1.0-4.8) Monocytes # (Auto) 0.6x10^3/uL (0.0-1.1) Eosinophils # (Auto) 0.5x10^3/uL (0.0-0.7) Basophils # (Auto) 0.1x10^3/uL (0.0-0.2) Sodium Level 135mmol/L (136-145) Potassium Level 3.8mmol/L (3.5-5.1) Chloride Level 100mmol/L (98-107) Carbon Dioxide Level 27mmol/L (21-32) Anion Gap 8 (6-14) Blood Urea Nitrogen 13mg/dL (7-20) Creatinine 3.2mg/dL (0.6-1.0) Estimated GFR (Cockcroft-Gault) 15.5 Glucose Level 85mg/dL (70-99) Calcium Level 8.2mg/dL (8.5-10.1) Troponin I Quantitative 0.028ng/mL (0.000-0.055) 0.021ng/mL (0.000-0.055) 0.024ng/mL (0.000-0.055) Glucose (Fingerstick) 68mg/dL (70-99) Test 02/01/17 08:30 02/01/17 11:31 02/01/17 16:55 02/01/17 20:52 Glucose (Fingerstick) 106mg/dL (70-99) 105mg/dL (70-99) 165mg/dL (70-99) 126mg/dL (70-99) Test 02/02/17 04:55 02/02/17 11:36 White Blood Count 8.1x10^3/uL (4.0-11.0) Red Blood Count 3.24x10^6/uL (3.50-5.40) Hemoglobin 9.0g/dL (12.0-15.5) Hematocrit 28.0% (36.0-47.0) Mean Corpuscular Volume 86fL (79-100) Mean Corpuscular Hemoglobin 28pg (25-35) Mean Corpuscular Hemoglobin Concent 32g/dL (31-37) Red Cell Distribution Width 18.3% (11.5-14.5) Platelet Count 214x10^3/uL (140-400) Neutrophils (%) (Auto) 73% (31-73) Lymphocytes (%) (Auto) 15% (24-48) Monocytes (%) (Auto) 6% (0-9) Eosinophils (%) (Auto) 4% (0-3) Basophils (%) (Auto) 1% (0-3) Neutrophils # (Auto) 6.0x10^3uL (1.8-7.7) Lymphocytes # (Auto) 1.2x10^3/uL (1.0-4.8) Monocytes # (Auto) 0.5x10^3/uL (0.0-1.1) Eosinophils # (Auto) 0.4x10^3/uL (0.0-0.7) Basophils # (Auto) 0.1x10^3/uL (0.0-0.2) Sodium Level 137mmol/L (136-145) Potassium Level 4.4mmol/L (3.5-5.1) Chloride Level 104mmol/L (98-107) Carbon Dioxide Level 25mmol/L (21-32) Anion Gap 8 (6-14) Blood Urea Nitrogen 18mg/dL (7-20) Creatinine 4.0mg/dL (0.6-1.0) Estimated GFR (Cockcroft-Gault) 12.0 BUN/Creatinine Ratio 5 (6-20) Glucose Level 110mg/dL (70-99) Calcium Level 8.0mg/dL (8.5-10.1) Magnesium Level 2.0mg/dL (1.8-2.4) Total Bilirubin 0.5mg/dL (0.2-1.0) Aspartate Amino Transf (AST/SGOT) 39U/L (15-37) Alanine Aminotransferase (ALT/SGPT) 30U/L (14-59) Alkaline Phosphatase 184U/L (46-116) Total Protein 5.7g/dL (6.4-8.2) Albumin 2.2g/dL (3.4-5.0) Albumin/Globulin Ratio 0.6 (1.0-1.7) Glucose (Fingerstick) 107mg/dL (70-99) Laboratory Tests Test 02/01/17 16:55 02/01/17 20:52 02/02/17 04:55 02/02/17 11:36 Glucose (Fingerstick) 165mg/dL (70-99) 126mg/dL (70-99) 107mg/dL (70-99) White Blood Count 8.1x10^3/uL (4.0-11.0) Red Blood Count 3.24x10^6/uL (3.50-5.40) Hemoglobin 9.0g/dL (12.0-15.5) Hematocrit 28.0% (36.0-47.0) Mean Corpuscular Volume 86fL (79-100) Mean Corpuscular Hemoglobin 28pg (25-35) Mean Corpuscular Hemoglobin Concent 32g/dL (31-37) Red Cell Distribution Width 18.3% (11.5-14.5) Platelet Count 214x10^3/uL (140-400) Neutrophils (%) (Auto) 73% (31-73) Lymphocytes (%) (Auto) 15% (24-48) Monocytes (%) (Auto) 6% (0-9) Eosinophils (%) (Auto) 4% (0-3) Basophils (%) (Auto) 1% (0-3) Neutrophils # (Auto) 6.0x10^3uL (1.8-7.7) Lymphocytes # (Auto) 1.2x10^3/uL (1.0-4.8) Monocytes # (Auto) 0.5x10^3/uL (0.0-1.1) Eosinophils # (Auto) 0.4x10^3/uL (0.0-0.7) Basophils # (Auto) 0.1x10^3/uL (0.0-0.2) Sodium Level 137mmol/L (136-145) Potassium Level 4.4mmol/L (3.5-5.1) Chloride Level 104mmol/L (98-107) Carbon Dioxide Level 25mmol/L (21-32) Anion Gap 8 (6-14) Blood Urea Nitrogen 18mg/dL (7-20) Creatinine 4.0mg/dL (0.6-1.0) Estimated GFR (Cockcroft-Gault) 12.0 BUN/Creatinine Ratio 5 (6-20) Glucose Level 110mg/dL (70-99) Calcium Level 8.0mg/dL (8.5-10.1) Magnesium Level 2.0mg/dL (1.8-2.4) Total Bilirubin 0.5mg/dL (0.2-1.0) Aspartate Amino Transf (AST/SGOT) 39U/L (15-37) Alanine Aminotransferase (ALT/SGPT) 30U/L (14-59) Alkaline Phosphatase 184U/L (46-116) Total Protein 5.7g/dL (6.4-8.2) Albumin 2.2g/dL (3.4-5.0) Albumin/Globulin Ratio 0.6 (1.0-1.7) Medications Active Scripts Medications Dose Route/Sig Days Date Category Nystop (Nystatin) 60 Gm Powder 1 Bossman TP BID 02/02/17 Rx Levemir Flextouch (Insulin Detemir) 100 Unit/1 Ml Insuln.pen 24 Units SQ BID 02/02/17 Rx [Hydromorphone Hcl] 2 MG Tablet 2 Mg PO PRN Q6HRS PRN 02/02/17 Rx Magnesium Oxide 400 Mg Tablet 400 Mg PO TID 01/31/17 Reported Novolog Flexpen (Insulin Aspart) 100 Unit/1 Ml Insuln.pen 12 Unit SQ TIDAC 01/26/17 Rx Tylenol (Acetaminophen) 325 Mg Tablet 650 Mg PO PRN Q6HRS PRN 01/26/17 Rx Metoclopramide Hcl 10 Mg Tablet 5 Mg PO TIDAC 01/26/17 Rx Aranesp Syringe (Darbepoetin Bacilio In Polysorbat) 60 Mcg/0.3 Ml Disp.syrin 60 Mcg SQ WEEKLYHS 01/26/17 Rx Colestid (Colestipol Hcl) 1 Gm Tablet 1 Gm PO BID@01/26/17 Rx Calcium Carbonate 200 Mg Tab.chew 500 Mg PO PRN AFTMEALHC PRN 01/26/17 Rx Vitamin C (Ascorbic Acid) 500 Mg Tablet 500 Mg PO DAILY 01/26/17 Rx Eliquis (Apixaban) 5 Mg Tablet 5 Mg PO BID 01/19/17 Rx FENTANYL 50mcg/hr (Fentanyl) 1 Each Patch.td72 1 Patch TD Q3DAYS 12/24/16 Rx Coreg (Carvedilol) 3.125 Mg Tablet 1 Tab PO BID 12/24/16 Rx Novolog Flexpen (Insulin Aspart) 100 Unit/1 Ml Insuln.pen 0-8 Unit SQ TID AC 07/17/16 Rx Zofran Odt (Ondansetron) 4 Mg Tab.rapdis 1 Tab SL PRN Q6HRS PRN 06/23/16 Rx Milk Of Magnesia (Magnesium Hydroxide) 400 Mg/5 Ml Oral.susp 2,400 Mg PO PRN DAILY PRN 06/23/16 Rx Duoneb 0.5-3(2.5) Mg/3 Ml (Albuterol/Ipratropium) 3 Ml Ampul.neb 3 Ml NEB RTQID 06/10/16 Rx Aspir 81 (Aspirin) 81 Mg Tablet.dr 81 Mg PO DAILY 06/05/16 Reported Nitrostat (Nitroglycerin) 0.4 Mg Tab.subl 0.4 Mg SL PRN Q5MIN PRN 06/05/16 Reported Atorvastatin Calcium 40 Mg Tablet 40 Mg PO HS 06/05/16 Reported Omeprazole 20 Mg Capsule.dr 20 Mg PO DAILY 06/05/16 Reported Impression . 1. Right chest wall pain, this is reproducible and most likely related to the placement of tunneled catheter in that area. Negative CT for recurrent PE 2. History of deep venous thrombosis, right lower extremity, status post IVC filter and history of pulmonary embolism. The patient is on Eliquis. 3. History of end-stage renal disease, now requiring hemodialysis. 4. History of cardiomyopathy with an EF of 30%-35%. 5. Peripheral vascular disease Plan . AGREE WITH CURRENT RX RECOMMENDATIONS: 1. Continue with pain medications to treat her chest wall pain, which is related to tunneled catheter. 2. Continue home Eliquis. 3. Continue nebulizer treatment. 4. Continue oxygen. 5. We will follow along with you. LIBRADO MCCARTHY MD Feb 02, 2017 15:56
[2017-02-02 19:30] VITALS: BP 95/62
[2017-02-02] MEDS: ATORVASTATIN CALCIUM 40 MG TABLET. PO SCH (20:19)
[2017-02-02] MEDS: LIDOCAINE (700MG/PATCH) PATCH. TD SCH (20:19)
[2017-02-02] MEDS ORDERED: DARBEPOETIN ALFA 60 MCG/0.3 ML DISP.SYRIN. SQ SCH (21:00)
[2017-02-02] MEDS ORDERED: HYDROmorphone 2 MG TABLET PO PRN (21:45)
[2017-02-02 23:00] VITALS: BP_SYST 89; BP_SYST 95; BP_DIAS 45; BP_DIAS 57
[2017-02-03 03:37] VITALS: BP 81/45
[2017-02-03 04:10] LABS: BASO # 0.1 x10^3/uL (0.0-0.2); BASO % 1 % (0-3); EOS % 5 % (0-3); HEMATOCRIT 29.4 % (36.0-47.0); HEMOGLOBIN 9.4 g/dL (12.0-15.5); LYMPH # 1.3 x10^3/uL (1.0-4.8); LYMPH % 16 % (24-48); MEAN CORPUSCULAR HEMOGLOBIN 28 pg (25-35); MEAN CORPUSCULAR HGB CONC 32 g/dL (31-37); MEAN CORPUSCULAR VOLUME 86 fL (79-100); MONO % 7 % (0-9); NEUT % 71 % (31-73); PLATELET COUNT 228 x10^3/uL (140-400); RED CELL DISTRIBUTION WIDTH 18.4 % (11.5-14.5); WHITE BLOOD COUNT 8.2 x10^3/uL (4.0-11.0)
[2017-02-03 04:21] LABS: ALBUMIN 2.2 g/dL (3.4-5.0); CALCIUM 8.3 mg/dL (8.5-10.1); CREATININE 3.1 mg/dL (0.6-1.0); GFR 16.1; PHOSPHORUS 3.7 mg/dL (2.6-4.7); POTASSIUM 3.9 mmol/L (3.5-5.1)
[2017-02-03 04:24] LABS: ALBUMIN 2.3 g/dL (3.4-5.0); ALBUMIN/GLOBULIN RATIO 0.6 (1.0-1.7); GFR 16.7; POTASSIUM 4.1 mmol/L (3.5-5.1); TOTAL BILIRUBIN 0.6 mg/dL (0.2-1.0); TOTAL PROTEIN 5.9 g/dL (6.4-8.2)
[2017-02-03] MEDS: INSULIN ASPART 300 UNITS/3 ML INSULN.PEN SQ SCH ×7 (07:30→21:00)
[2017-02-03] MEDS: METOCLOPRAMIDE 10 MG TABLET. PO SCH (07:30)
[2017-02-03 07:45] VITALS: BP 89/56
[2017-02-03] MEDS: CARVEDILOL 3.125 MG TABLET. PO SCH ×2 (08:00→17:00)
[2017-02-03] MEDS: COLESTIPOL HCL 1 GM TABLET PO SCH ×2 (08:28→21:44)
[2017-02-03] MEDS: MAGNESIUM OXIDE 400 MG TABLET PO SCH ×3 (08:28→21:44)
[2017-02-03] MEDS: ASPIRIN ENTERIC COATED 81 MG TABLET.DR. PO SCH (08:29)
[2017-02-03] MEDS: APIXABAN 5 MG TABLET. PO SCH ×2 (08:29→21:45)
[2017-02-03] MEDS: PANTOPRAZOLE 40 MG TABLET.DR. PO SCH (08:29)
[2017-02-03] MEDS: HYDROmorphone 2 MG TABLET PO PRN ×3 (08:29→21:45)
[2017-02-03] MEDS: NYSTATIN TOPICAL POWDER 15GM BOTTLE. TP SCH ×2 (08:30→21:00)
[2017-02-03] MEDS: LIDOCAINE (700MG/PATCH) PATCH. TD SCH (08:30)
[2017-02-03] MEDS: ANTI-COAG MONITOR BY PHARMACY. MC PRN (08:58)
[2017-02-03] MEDS: INSULIN DETEMIR 300 UNITS/3 ML INSULN.PEN. SQ SCH ×2 (09:00→21:00)
--- NOTE | 2017-02-03 09:35 | PDOC ---
IM PROGRESS NOTES- Subjective Subjective . Pain R neck continues at site tunnelled dialysis cath Requesting pain meds continuously last night. BP systolic 80-81 this AM. Objective Vitals Vital Signs Date Time Temp Pulse Resp B/P Pulse Ox O2 Delivery O2 Flow Rate FiO2 02/03/17 08:00 51 81/45 02/03/17 07:45 98.0 16 97 Nasal Cannula 2.5 98.0 Input & Output Intake and Output 02/03/17 07:00 Intake Total 850 ml Balance 850 ml Intake Oral 850 ml # Bowel Movements 1 Physical Exam Physical Exam General appearance - alert,well appearing, and in mild distress r/t anxiousness Mental Status - alert, oriented to person, place, and time, anxious Head - normal Chest - clear to auscultation, no wheezes, rales or rhonchi, decreased bases Heart - S1 and S2 normal Abdomen - soft, nontender, nondistended, obese, BS+ Neurological - no acute focal neurological deficit noted Musculoskeletal - no acute pain Extremities - ++ edema, tubi capacitor tester bilateral, dressing R foot intact, boot off Skin - warm and dry Labs Laboratory Tests Test 02/01/17 11:31 02/01/17 16:55 02/01/17 20:52 02/02/17 04:55 Glucose (Fingerstick) 105mg/dL (70-99) 165mg/dL (70-99) 126mg/dL (70-99) White Blood Count 8.1x10^3/uL (4.0-11.0) Red Blood Count 3.24x10^6/uL (3.50-5.40) Hemoglobin 9.0g/dL (12.0-15.5) Hematocrit 28.0% (36.0-47.0) Mean Corpuscular Volume 86fL (79-100) Mean Corpuscular Hemoglobin 28pg (25-35) Mean Corpuscular Hemoglobin Concent 32g/dL (31-37) Red Cell Distribution Width 18.3% (11.5-14.5) Platelet Count 214x10^3/uL (140-400) Neutrophils (%) (Auto) 73% (31-73) Lymphocytes (%) (Auto) 15% (24-48) Monocytes (%) (Auto) 6% (0-9) Eosinophils (%) (Auto) 4% (0-3) Basophils (%) (Auto) 1% (0-3) Neutrophils # (Auto) 6.0x10^3uL (1.8-7.7) Lymphocytes # (Auto) 1.2x10^3/uL (1.0-4.8) Monocytes # (Auto) 0.5x10^3/uL (0.0-1.1) Eosinophils # (Auto) 0.4x10^3/uL (0.0-0.7) Basophils # (Auto) 0.1x10^3/uL (0.0-0.2) Sodium Level 137mmol/L (136-145) Potassium Level 4.4mmol/L (3.5-5.1) Chloride Level 104mmol/L (98-107) Carbon Dioxide Level 25mmol/L (21-32) Anion Gap 8 (6-14) Blood Urea Nitrogen 18mg/dL (7-20) Creatinine 4.0mg/dL (0.6-1.0) Estimated GFR (Cockcroft-Gault) 12.0 BUN/Creatinine Ratio 5 (6-20) Glucose Level 110mg/dL (70-99) Calcium Level 8.0mg/dL (8.5-10.1) Magnesium Level 2.0mg/dL (1.8-2.4) Total Bilirubin 0.5mg/dL (0.2-1.0) Aspartate Amino Transf (AST/SGOT) 39U/L (15-37) Alanine Aminotransferase (ALT/SGPT) 30U/L (14-59) Alkaline Phosphatase 184U/L (46-116) Total Protein 5.7g/dL (6.4-8.2) Albumin 2.2g/dL (3.4-5.0) Albumin/Globulin Ratio 0.6 (1.0-1.7) Test 02/02/17 11:36 02/02/17 17:09 02/02/17 21:46 02/03/17 03:20 Glucose (Fingerstick) 107mg/dL (70-99) 108mg/dL (70-99) 139mg/dL (70-99) White Blood Count 8.2x10^3/uL (4.0-11.0) Red Blood Count 3.40x10^6/uL (3.50-5.40) Hemoglobin 9.4g/dL (12.0-15.5) Hematocrit 29.4% (36.0-47.0) Mean Corpuscular Volume 86fL (79-100) Mean Corpuscular Hemoglobin 28pg (25-35) Mean Corpuscular Hemoglobin Concent 32g/dL (31-37) Red Cell Distribution Width 18.4% (11.5-14.5) Platelet Count 228x10^3/uL (140-400) Neutrophils (%) (Auto) 71% (31-73) Lymphocytes (%) (Auto) 16% (24-48) Monocytes (%) (Auto) 7% (0-9) Eosinophils (%) (Auto) 5% (0-3) Basophils (%) (Auto) 1% (0-3) Neutrophils # (Auto) 5.9x10^3uL (1.8-7.7) Lymphocytes # (Auto) 1.3x10^3/uL (1.0-4.8) Monocytes # (Auto) 0.6x10^3/uL (0.0-1.1) Eosinophils # (Auto) 0.4x10^3/uL (0.0-0.7) Basophils # (Auto) 0.1x10^3/uL (0.0-0.2) Sodium Level 138mmol/L (136-145) Potassium Level 3.9mmol/L (3.5-5.1) Chloride Level 103mmol/L (98-107) Carbon Dioxide Level 29mmol/L (21-32) Anion Gap 6 (6-14) Blood Urea Nitrogen 11mg/dL (7-20) Creatinine 3.1mg/dL (0.6-1.0) Estimated GFR (Cockcroft-Gault) 16.1 BUN/Creatinine Ratio 4 (6-20) Glucose Level 115mg/dL (70-99) Calcium Level 8.3mg/dL (8.5-10.1) Phosphorus Level 3.7mg/dL (2.6-4.7) Magnesium Level 1.8mg/dL (1.8-2.4) Total Bilirubin 0.6mg/dL (0.2-1.0) Aspartate Amino Transf (AST/SGOT) 26U/L (15-37) Alanine Aminotransferase (ALT/SGPT) 25U/L (14-59) Alkaline Phosphatase 167U/L (46-116) Total Protein 5.9g/dL (6.4-8.2) Albumin 2.2g/dL (3.4-5.0) Albumin/Globulin Ratio 0.6 (1.0-1.7) Laboratory Tests Test 02/02/17 11:36 02/02/17 17:09 02/02/17 21:46 02/03/17 03:20 Glucose (Fingerstick) 107mg/dL (70-99) 108mg/dL (70-99) 139mg/dL (70-99) White Blood Count 8.2x10^3/uL (4.0-11.0) Red Blood Count 3.40x10^6/uL (3.50-5.40) Hemoglobin 9.4g/dL (12.0-15.5) Hematocrit 29.4% (36.0-47.0) Mean Corpuscular Volume 86fL (79-100) Mean Corpuscular Hemoglobin 28pg (25-35) Mean Corpuscular Hemoglobin Concent 32g/dL (31-37) Red Cell Distribution Width 18.4% (11.5-14.5) Platelet Count 228x10^3/uL (140-400) Neutrophils (%) (Auto) 71% (31-73) Lymphocytes (%) (Auto) 16% (24-48) Monocytes (%) (Auto) 7% (0-9) Eosinophils (%) (Auto) 5% (0-3) Basophils (%) (Auto) 1% (0-3) Neutrophils # (Auto) 5.9x10^3uL (1.8-7.7) Lymphocytes # (Auto) 1.3x10^3/uL (1.0-4.8) Monocytes # (Auto) 0.6x10^3/uL (0.0-1.1) Eosinophils # (Auto) 0.4x10^3/uL (0.0-0.7) Basophils # (Auto) 0.1x10^3/uL (0.0-0.2) Sodium Level 138mmol/L (136-145) Potassium Level 3.9mmol/L (3.5-5.1) Chloride Level 103mmol/L (98-107) Carbon Dioxide Level 29mmol/L (21-32) Anion Gap 6 (6-14) Blood Urea Nitrogen 11mg/dL (7-20) Creatinine 3.1mg/dL (0.6-1.0) Estimated GFR (Cockcroft-Gault) 16.1 BUN/Creatinine Ratio 4 (6-20) Glucose Level 115mg/dL (70-99) Calcium Level 8.3mg/dL (8.5-10.1) Phosphorus Level 3.7mg/dL (2.6-4.7) Magnesium Level 1.8mg/dL (1.8-2.4) Total Bilirubin 0.6mg/dL (0.2-1.0) Aspartate Amino Transf (AST/SGOT) 26U/L (15-37) Alanine Aminotransferase (ALT/SGPT) 25U/L (14-59) Alkaline Phosphatase 167U/L (46-116) Total Protein 5.9g/dL (6.4-8.2) Albumin 2.2g/dL (3.4-5.0) Albumin/Globulin Ratio 0.6 (1.0-1.7) Meds Current Medications Darbepoetin Bacilio (Aranesp) 60 mcg WEEKLYHS SQ Last administered on 02/02/17 21 :56; Start 02/02/17 at 21:00 Darbepoetin Bacilio 60 mcg 60 mcg WEEKLYHS SQ ; Start 02/07/17 at 21:00; Status Cancel Hydromorphone HCl (Dilaudid) 2 mg PRN Q4HRS PRN PO PAIN Last administered on 23:38; Start 02/02/17 at 19:45 Hydromorphone HCl (Dilaudid) 2 mg PRN Q4HRS PRN PO PAIN; Start 02/02/17 at 21: 45; Stop 02/02/17 at 21:45; Status DC Info (PHARMACY MONITORING -- do not chart) 1 each PRN DAILY PRN MC SEE COMMENTS ; Start 02/02/17 at 14:45 Info (PHARMACY MONITORING -- do not chart) 1 each PRN DAILY PRN MC SEE COMMENTS ; Start 02/02/17 at 14:45 Lidocaine 1 patch 1 patch DAILY TD Last administered on 02/03/17t 08:30; Start 02/02/17 at 14:30 Magnesium Sulfate/ Dextrose (Magnesium Sulfate PREMIX 2GM) 50 ml @ 25 mls/hr PRN DAILY PRN IV for Mag < 1.7 on am labs; Start 02/02/17 at 12:30 Sodium Chloride (Iv Sodium Chloride 0.9% 1000ml Bag) 1,000 ml @ 1,000 mls/hr Q1H PRN IV hypotension; Start 02/02/17 at 14:32; Stop 02/02/17 at 20:31; Status DC Sodium Chloride (Normal Saline Flush) 10 ml 1X PRN PRN IV AP catheter pack; Start 02/02/17 at 14:45; Stop 02/03/17 at 14:44 Sodium Chloride (Normal Saline Flush) 10 ml 1X PRN PRN IV ADMINISTRATION SPECIALIST catheter pack; Start 02/02/17 at 14:45; Stop 02/03/17 at 14:44 Assessment Assessment 1. Right upper chest pain -MS r/t tunnelled dialysis catheter, not CAD 2. ESRD with recent ARF/CKD III ATN requiring HD 3x weekly . 3. DVT of the RLE IVC filter on 12/11/2016, on Eliquis with h/o PE, 4. 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 Chronic congestive heart failure, systolic ejection fraction of 30-35%, nonacute on admission 6. Diarrhea with previous negative C. diff improving with colestid 1gm BID, did not improve with cholestyramine. 7. Diabetes mellitus type 2 with neuropathy, peripheral vascular disease and chronic insulin use. 8. Anxiety and depression. 9. Hypertension. 10. Hyperlipidemia. 11. Coronary artery disease with history of myocardial infarction and percutaneous coronary intervention with stent placement. 12. Gastroesophageal reflux disease. 13. Chronic low back pain. 14. History of hypercapnic and hypoxic respiratory failure with narcotics. 15. Chronic obstructive pulmonary edema. 16. History of cerebrovascular accident. 17. Morbid obesity. 18. Obstructive sleep apnea, on oxygen by 3 liters nasal cannula at bedtime, and CPAP intolerant. 19. History of noncompliance. 20. anemia CD renal failure PLAN: R sided chest pain cardiology consult neg CAD r/t tunnelled dialysis catheter ESRD HD 3 time weekly renal consult Episode last week crying/pain all over after dialysis. labs drawn and given extra K and Mg. Wanted readmit b/c dialysis here did not hurt like it did out patient. D/W DPOA and pt-agreed to stay at [facility]. Admit Na 135 02/02 137 K 3.8 4.4 Mg 2.0 DM II FSBS/SSI BS [id number] Novulin 12u TID ac Levemir 24u at hs osteo R jerry/diabetic ulcer wound care Vanco IV ID consult BC 01/31-negative anemia CD Admit 9.9 02/02 9.0 aranesp injections CHF not acute Admit wt 295 02/02 297.12 daily weights nausea through night when anxious-has n/v diarrhea d/c Reglan and observe. Hypotension- staff to check with cardiology about coreg- hold. Hold pain meds this AM- s/e again d/w pt extensively. No discharge today. D/w yesterday - he saw pt today- HD cath site tender but no infection functionong well- pt has low pain tolerance- she wants to continue same catheter. DVT/GI prophylaxis eliquis PPI For further plan of care, please refer to the orders. Plan Plan For more details regarding further plans, please refer to the orders. Nutrition Consultation Dietary Evaluation: Recommendations by RD: Increase Calorie Intake, Protein supplementation Comments: Rec. Novasource Renal TID Rec. 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
--- NOTE | 2017-02-03 11:36 | PDOC ---
SUBJECTIVE ROS ESRD doing OK overall CVS: no Orthopnea, n CP RESP: no SOB, no CARRION GI: no Nausea, no Vomiting : no Dysuria, no Urgency OBJECTIVE Vital Signs Vital Signs Date Time Temp Pulse Resp B/P Pulse Ox O2 Delivery O2 Flow Rate FiO2 02/03/17 08:00 51 81/45 02/03/17 07:45 98.0 16 97 Nasal Cannula 2.5 98.0 I & 0 Intake and Output 02/03/17 07:00 Intake Total 850 ml Balance 850 ml Intake Oral 850 ml # Bowel Movements 1 PHYSICAL EXAM Physical Exam GEN: Awake, Oriented x 3, In no distress EYES: Vision Unchanged, Conjunctiva Normal EN: No EN Drainage, Mucous Membranes moist NECK: no JVD, min JVP, Supple, no Thyromegaly CVS: S1S2, sys Murmur, No Gallop, No Rub, Tr Edema RESP: no Rales, no Rhonchi,no Acc. Muscle Use GI: BS + ve, NO Bruit, Non Tender, Non Distended - obese : no CVA tenderness, no Suprapubic Tenderness DIAGNOSIS/ASSESSMENT Assessment & Plan ESRD: Current fluid and E-lyte status does not necessitate emergent need for dialysis. Will re-evaluate for dialysis in the am and continue on TTSat schedule. ANEMIA; Aranesp as ordered, Transfuse with next HD as needed H ypoTN: Current meds as reviewed. See orders for changes. this may limit Uf on Hd Edema - Uf as jasiel by hemodynamics - suspect some of this is due to ?GUY (konwn to have fatty liver longstanding) Neck pain - ? due to HD Cath infection vs Post-procedural pain - NGTD from Bl Cx DIAGNOSIS/ASSESSMENT Assessment & Plan Problems: COMMENT/RELEVANT DATA Meds Current Medications Medications (Trade) Dose Ordered Sig/Ant Start Time Stop Time Status Last Admin Dose Admin Acetaminophen (Tylenol) 650 mg PRN Q6HRS PRN 01/31/17 21:45 02/01/17 21:36 650 MG Albuterol/ Ipratropium (Duoneb) 3 ml RTQID PRN 02/01/17 11:45 Apixaban (Eliquis) 5 mg BID 01/31/17 22:00 02/03/17 08:29 5 MG Ascorbic Acid (Vitamin C) 500 mg DAILY 02/01/17 09:00 02/01/17 09:51 DC Aspirin (Ecotrin) 81 mg DAILY 02/01/17 09:00 02/03/17 08:29 81 MG Atorvastatin Calcium (Lipitor) 40 mg HS 01/31/17 22:00 02/02/17 20:19 40 MG Bisacodyl (Dulcolax Tab) 10 mg PRN DAILY PRN 01/31/17 21:45 02/01/17 09:51 DC Calcium Carbonate/ Glycine (Tums) 500 mg PRN AFTMEALHC PRN 01/31/17 21:45 02/02/17 00:41 500 MG Carvedilol (Coreg) 3.125 mg BIDWMEALS 02/01/17 08:00 02/02/17 09:16 3.125 MG Colestipol HCl (Colestid) 1 gm BID@,22 01/31/17 22:00 02/03/17 08:28 1 GM Darbepoetin Bacilio (Aranesp) 60 mcg WEEKLYHS 02/02/17 21:00 02/02/17 21:56 60 MCG Dextrose (Dextrose 50%-Water Syringe) 12.5 gm PRN Q15MIN PRN 02/01/17 07:00 Docusate Sodium (Colace) 100 mg PRN DAILY PRN 01/31/17 21:45 02/01/17 09:51 DC Fentanyl (Duragesic 50mcg/ Hr Patch) 1 patch Q3DAYS 02/01/17 21:00 02/01/17 21:36 1 PATCH Hydromorphone HCl (Dilaudid) 2 mg PRN Q4HRS PRN 02/02/17 19:45 02/02/17 23:38 2 MG Hydromorphone HCl 1 mg 1 mg 1X ONCE 02/02/17 04:00 02/02/17 04:01 DC 02/02/17 04:00 1 MG Info (Anti-Coagulation Monitoring By Pharmacy) 1 each PRN DAILY PRN 02/01/17 07:15 02/03/17 08:58 1 EACH Info (PHARMACY MONITORING -- do not chart) 1 each PRN DAILY PRN 02/02/17 14:45 02/03/17 09:35 DC Insulin Aspart (Novolog) 12 units TIDAC 02/01/17 07:30 02/01/17 18:13 12 UNITS Insulin Detemir (Levemir) 24 units BID 02/01/17 21:00 Lidocaine 1 patch 1 patch DAILY 02/02/17 14:30 02/03/17 08:30 1 PATCH Magnesium Hydroxide (Milk Of Magnesia) 2,400 mg PRN DAILY PRN 01/31/17 21:45 Magnesium Oxide (Magnesium Oxide) 400 mg TID 02/01/17 09:00 02/03/17 08:28 400 MG Magnesium Sulfate/ Dextrose (Magnesium Sulfate PREMIX 2GM) 50 ml @ 25 mls/hr PRN DAILY PRN 02/02/17 12:30 Metoclopramide HCl (Reglan) 5 mg TIDAC 02/01/17 07:30 02/03/17 08:41 DC 02/02/17 09:17 5 MG Morphine Sulfate 4 mg PRN Q2HR PRN 01/31/17 19:45 02/01/17 19:44 DC 02/01/17 07:58 4 MG Nitroglycerin (Nitrostat) 0.4 mg PRN Q5MIN PRN 01/31/17 21:45 Non-Formulary Medication 30 unit BID 02/01/17 09:00 UNV Nystatin (Nystop) 1 stephanie BID 02/01/17 10:00 02/08/17 09:59 02/03/17 08:30 1 STEPHANIE Ondansetron HCl (Zofran Odt) 4 mg PRN Q6HRS PRN 01/31/17 21:45 02/02/17 00:41 4 MG Ondansetron HCl (Zofran) 4 mg PRN Q8HRS PRN 01/31/17 19:45 02/01/17 19:44 DC Pantoprazole Sodium (Protonix) 40 mg DAILYAC 02/01/17 07:30 02/03/17 08:29 40 MG Polyethylene Glycol (miraLAX PACKET) 17 gm DAILY 02/01/17 09:00 02/02/17 08:34 DC Sodium Chloride (Iv Sodium Chloride 0.9% 1000ml Bag) 1,000 ml @ 1,000 mls/hr Q1H PRN 02/02/17 14:32 02/02/17 20:31 DC Sodium Chloride (Normal Saline Flush) 10 ml 1X PRN PRN 02/02/17 14:45 02/03/17 14:44 Vancomycin HCl 1 each 1X ONCE 02/02/17 06:00 02/02/17 06:00 DC Vancomycin HCl 1 each 1 each PRN DAILY PRN 01/31/17 19:45 02/01/17 13:21 DC 02/01/17 12:43 1 EACH Vancomycin HCl/ Sodium Chloride (Iv Sodium Chloride 0.9% 500ml Bag) 500 ml @ 250 mls/hr 1X ONCE 01/31/17 20:00 01/31/17 21:59 DC 01/31/17 20:27 250 MLS/HR Lab Laboratory Tests Test 02/02/17 11:36 02/02/17 17:09 02/02/17 21:46 02/03/17 03:20 Glucose (Fingerstick) 107mg/dL (70-99) 108mg/dL (70-99) 139mg/dL (70-99) White Blood Count 8.2x10^3/uL (4.0-11.0) Red Blood Count 3.40x10^6/uL (3.50-5.40) Hemoglobin 9.4g/dL (12.0-15.5) Hematocrit 29.4% (36.0-47.0) Mean Corpuscular Volume 86fL (79-100) Mean Corpuscular Hemoglobin 28pg (25-35) Mean Corpuscular Hemoglobin Concent 32g/dL (31-37) Red Cell Distribution Width 18.4% (11.5-14.5) Platelet Count 228x10^3/uL (140-400) Neutrophils (%) (Auto) 71% (31-73) Lymphocytes (%) (Auto) 16% (24-48) Monocytes (%) (Auto) 7% (0-9) Eosinophils (%) (Auto) 5% (0-3) Basophils (%) (Auto) 1% (0-3) Neutrophils # (Auto) 5.9x10^3uL (1.8-7.7) Lymphocytes # (Auto) 1.3x10^3/uL (1.0-4.8) Monocytes # (Auto) 0.6x10^3/uL (0.0-1.1) Eosinophils # (Auto) 0.4x10^3/uL (0.0-0.7) Basophils # (Auto) 0.1x10^3/uL (0.0-0.2) Sodium Level 138mmol/L (136-145) Potassium Level 3.9mmol/L (3.5-5.1) Chloride Level 103mmol/L (98-107) Carbon Dioxide Level 29mmol/L (21-32) Anion Gap 6 (6-14) Blood Urea Nitrogen 11mg/dL (7-20) Creatinine 3.1mg/dL (0.6-1.0) Estimated GFR (Cockcroft-Gault) 16.1 BUN/Creatinine Ratio 4 (6-20) Glucose Level 115mg/dL (70-99) Calcium Level 8.3mg/dL (8.5-10.1) Phosphorus Level 3.7mg/dL (2.6-4.7) Magnesium Level 1.8mg/dL (1.8-2.4) Total Bilirubin 0.6mg/dL (0.2-1.0) Aspartate Amino Transf (AST/SGOT) 26U/L (15-37) Alanine Aminotransferase (ALT/SGPT) 25U/L (14-59) Alkaline Phosphatase 167U/L (46-116) Total Protein 5.9g/dL (6.4-8.2) Albumin 2.2g/dL (3.4-5.0) Albumin/Globulin Ratio 0.6 (1.0-1.7) PAIGE MOSQUEDA MD Feb 03, 2017 11:36
[2017-02-03 11:48] VITALS: BP 89/58
[2017-02-03 15:39] VITALS: BP 93/52
[2017-02-03 19:49] VITALS: BP 84/48
[2017-02-03] MEDS: ATORVASTATIN CALCIUM 40 MG TABLET. PO SCH (21:45)
[2017-02-03 23:17] VITALS: BP 92/55
[2017-02-04] MEDS: HYDROmorphone 2 MG TABLET PO PRN ×2 (02:01→06:35)
[2017-02-04 02:21] VITALS: BP 81/51
[2017-02-04 07:00] VITALS: BP 92/60
[2017-02-04 07:11] LABS: ALBUMIN 2.2 g/dL (3.4-5.0); CALCIUM 8.2 mg/dL (8.5-10.1); CREATININE 4.2 mg/dL (0.6-1.0); GFR 11.3; PHOSPHORUS 4.2 mg/dL (2.6-4.7); POTASSIUM 4.2 mmol/L (3.5-5.1)
[2017-02-04] MEDS ORDERED: IV NORMAL SALINE 1000ML BAG 1,000 ML IV PRN ×2 (07:29)
[2017-02-04] MEDS: INSULIN ASPART 300 UNITS/3 ML INSULN.PEN SQ SCH ×6 (07:30→16:30)
[2017-02-04] MEDS ORDERED: DIALYSIS PATIENT. MC PRN (07:30)
[2017-02-04] MEDS ORDERED: 0.9 % SODIUM CHLORIDE 10 ML DISP.SYRIN. IV PRN ×2 (07:30)
[2017-02-04] MEDS: ANTI-COAG MONITOR BY PHARMACY. MC PRN (07:47)
[2017-02-04] MEDS: CARVEDILOL 3.125 MG TABLET. PO SCH ×2 (08:00→17:00)
[2017-02-04] MEDS: INSULIN DETEMIR 300 UNITS/3 ML INSULN.PEN. SQ SCH (09:00)
[2017-02-04] MEDS: MAGNESIUM OXIDE 400 MG TABLET PO SCH ×2 (09:00→12:44)
[2017-02-04] MEDS: NYSTATIN TOPICAL POWDER 15GM BOTTLE. TP SCH (09:00)
--- NOTE | 2017-02-04 09:20 | PDOC ---
Dialysis Progress Note Dialysis Note Dialysis Note Seen on Hemodialysis, tolerating treatment Well Vitals on Hemodialysis: 113/57 90 afeb General Appearance: Awake: Alert Oriented x 3 Neck: No JVD or JVP Chest: CTA Jarod Heart: S1 S2 Abdomen - Soft NTND Extremities - + Edema ESRD: Dialysis as below F 180 NR 3.5 Hrs 3 K 2.5 Ca 140 Na 35 HC03 Qb 350 + Qd 500+ Heparin 0 Units Uf 2-3 Kgs or to dry weight as tolerated May give 25-50 gms of 25% Albumin if needed to maintain Hemodynamic stability Treatment plan reviewed and discussed with sander machine Vitals Vital Signs Vital Signs Date Time Temp Pulse Resp B/P Pulse Ox O2 Delivery O2 Flow Rate FiO2 02/04/17 08:16 100 Nasal Cannula 2.0 02/04/17 07:00 98.1 97 19 92/60 98.1 Labs Last Labs Laboratory Tests Test 02/02/17 11:36 02/02/17 17:09 02/02/17 21:46 02/03/17 03:20 Glucose (Fingerstick) 107mg/dL (70-99) 108mg/dL (70-99) 139mg/dL (70-99) White Blood Count 8.2x10^3/uL (4.0-11.0) Red Blood Count 3.40x10^6/uL (3.50-5.40) Hemoglobin 9.4g/dL (12.0-15.5) Hematocrit 29.4% (36.0-47.0) Mean Corpuscular Volume 86fL (79-100) Mean Corpuscular Hemoglobin 28pg (25-35) Mean Corpuscular Hemoglobin Concent 32g/dL (31-37) Red Cell Distribution Width 18.4% (11.5-14.5) Platelet Count 228x10^3/uL (140-400) Neutrophils (%) (Auto) 71% (31-73) Lymphocytes (%) (Auto) 16% (24-48) Monocytes (%) (Auto) 7% (0-9) Eosinophils (%) (Auto) 5% (0-3) Basophils (%) (Auto) 1% (0-3) Neutrophils # (Auto) 5.9x10^3uL (1.8-7.7) Lymphocytes # (Auto) 1.3x10^3/uL (1.0-4.8) Monocytes # (Auto) 0.6x10^3/uL (0.0-1.1) Eosinophils # (Auto) 0.4x10^3/uL (0.0-0.7) Basophils # (Auto) 0.1x10^3/uL (0.0-0.2) Sodium Level 138mmol/L (136-145) Potassium Level 3.9mmol/L (3.5-5.1) Chloride Level 103mmol/L (98-107) Carbon Dioxide Level 29mmol/L (21-32) Anion Gap 6 (6-14) Blood Urea Nitrogen 11mg/dL (7-20) Creatinine 3.1mg/dL (0.6-1.0) Estimated GFR (Cockcroft-Gault) 16.1 BUN/Creatinine Ratio 4 (6-20) Glucose Level 115mg/dL (70-99) Calcium Level 8.3mg/dL (8.5-10.1) Phosphorus Level 3.7mg/dL (2.6-4.7) Magnesium Level 1.8mg/dL (1.8-2.4) Total Bilirubin 0.6mg/dL (0.2-1.0) Aspartate Amino Transf (AST/SGOT) 26U/L (15-37) Alanine Aminotransferase (ALT/SGPT) 25U/L (14-59) Alkaline Phosphatase 167U/L (46-116) Total Protein 5.9g/dL (6.4-8.2) Albumin 2.2g/dL (3.4-5.0) Albumin/Globulin Ratio 0.6 (1.0-1.7) Test 02/03/17 08:32 02/03/17 12:18 02/03/17 17:22 02/03/17 20:59 Glucose (Fingerstick) 90mg/dL (70-99) 108mg/dL (70-99) 127mg/dL (70-99) 124mg/dL (70-99) Test 02/04/17 05:50 02/04/17 07:39 Sodium Level 138mmol/L (136-145) Potassium Level 4.2mmol/L (3.5-5.1) Chloride Level 103mmol/L (98-107) Carbon Dioxide Level 28mmol/L (21-32) Anion Gap 7 (6-14) Blood Urea Nitrogen 16mg/dL (7-20) Creatinine 4.2mg/dL (0.6-1.0) Estimated GFR (Cockcroft-Gault) 11.3 Glucose Level 99mg/dL (70-99) Calcium Level 8.2mg/dL (8.5-10.1) Phosphorus Level 4.2mg/dL (2.6-4.7) Albumin 2.2g/dL (3.4-5.0) Glucose (Fingerstick) 103mg/dL (70-99) Laboratory Tests Test 02/03/17 12:18 02/03/17 17:22 02/03/17 20:59 02/04/17 05:50 Glucose (Fingerstick) 108mg/dL (70-99) 127mg/dL (70-99) 124mg/dL (70-99) Sodium Level 138mmol/L (136-145) Potassium Level 4.2mmol/L (3.5-5.1) Chloride Level 103mmol/L (98-107) Carbon Dioxide Level 28mmol/L (21-32) Anion Gap 7 (6-14) Blood Urea Nitrogen 16mg/dL (7-20) Creatinine 4.2mg/dL (0.6-1.0) Estimated GFR (Cockcroft-Gault) 11.3 Glucose Level 99mg/dL (70-99) Calcium Level 8.2mg/dL (8.5-10.1) Phosphorus Level 4.2mg/dL (2.6-4.7) Albumin 2.2g/dL (3.4-5.0) Test 02/04/17 07:39 Glucose (Fingerstick) 103mg/dL (70-99) Assessment Assessment Problems Medical Problems: (1) Chest pain Status: Acute Problems: Plan Plan of Care Problems Medical Problems: (1) Chest pain Status: Acute PAIGE MOSQUEDA MD Feb 04, 2017 09:20
[2017-02-04] MEDS: COLESTIPOL HCL 1 GM TABLET PO SCH (10:00)
--- NOTE | 2017-02-04 11:08 | PDOC ---
IM PROGRESS NOTES- Subjective Subjective Pain R neck continues at site tunnelled dialysis cath improving. c/o foot pain. Objective Vitals Vital Signs Date Time Temp Pulse Resp B/P Pulse Ox O2 Delivery O2 Flow Rate FiO2 02/04/17 08:16 100 Nasal Cannula 2.0 02/04/17 07:00 98.1 97 19 92/60 98.1 Input & Output Intake and Output 02/04/17 07:00 Intake Total 480 ml Balance 480 ml Intake Oral 480 ml # Voids 1 # Bowel Movements 6 Physical Exam Physical Exam General appearance - alert,well appearing, and in no distress Mental Status - alert, oriented to person, place, and time Chest - clear to auscultation, no wheezes, rales or rhonchi, decreased bases Heart - S1 and S2 normal Abdomen - soft, nontender, nondistended, obese, BS+ Neurological - no acute focal neurological deficit noted Musculoskeletal - no acute pain Extremities - ++ edema, 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, dressing R foot intact, boot off Skin - warm and dry Labs Laboratory Tests Test 02/02/17 11:36 02/02/17 17:09 02/02/17 21:46 02/03/17 03:20 Glucose (Fingerstick) 107mg/dL (70-99) 108mg/dL (70-99) 139mg/dL (70-99) White Blood Count 8.2x10^3/uL (4.0-11.0) Red Blood Count 3.40x10^6/uL (3.50-5.40) Hemoglobin 9.4g/dL (12.0-15.5) Hematocrit 29.4% (36.0-47.0) Mean Corpuscular Volume 86fL (79-100) Mean Corpuscular Hemoglobin 28pg (25-35) Mean Corpuscular Hemoglobin Concent 32g/dL (31-37) Red Cell Distribution Width 18.4% (11.5-14.5) Platelet Count 228x10^3/uL (140-400) Neutrophils (%) (Auto) 71% (31-73) Lymphocytes (%) (Auto) 16% (24-48) Monocytes (%) (Auto) 7% (0-9) Eosinophils (%) (Auto) 5% (0-3) Basophils (%) (Auto) 1% (0-3) Neutrophils # (Auto) 5.9x10^3uL (1.8-7.7) Lymphocytes # (Auto) 1.3x10^3/uL (1.0-4.8) Monocytes # (Auto) 0.6x10^3/uL (0.0-1.1) Eosinophils # (Auto) 0.4x10^3/uL (0.0-0.7) Basophils # (Auto) 0.1x10^3/uL (0.0-0.2) Sodium Level 138mmol/L (136-145) Potassium Level 3.9mmol/L (3.5-5.1) Chloride Level 103mmol/L (98-107) Carbon Dioxide Level 29mmol/L (21-32) Anion Gap 6 (6-14) Blood Urea Nitrogen 11mg/dL (7-20) Creatinine 3.1mg/dL (0.6-1.0) Estimated GFR (Cockcroft-Gault) 16.1 BUN/Creatinine Ratio 4 (6-20) Glucose Level 115mg/dL (70-99) Calcium Level 8.3mg/dL (8.5-10.1) Phosphorus Level 3.7mg/dL (2.6-4.7) Magnesium Level 1.8mg/dL (1.8-2.4) Total Bilirubin 0.6mg/dL (0.2-1.0) Aspartate Amino Transf (AST/SGOT) 26U/L (15-37) Alanine Aminotransferase (ALT/SGPT) 25U/L (14-59) Alkaline Phosphatase 167U/L (46-116) Total Protein 5.9g/dL (6.4-8.2) Albumin 2.2g/dL (3.4-5.0) Albumin/Globulin Ratio 0.6 (1.0-1.7) Test 02/03/17 08:32 02/03/17 12:18 02/03/17 17:22 02/03/17 20:59 Glucose (Fingerstick) 90mg/dL (70-99) 108mg/dL (70-99) 127mg/dL (70-99) 124mg/dL (70-99) Test 02/04/17 05:50 02/04/17 07:39 Sodium Level 138mmol/L (136-145) Potassium Level 4.2mmol/L (3.5-5.1) Chloride Level 103mmol/L (98-107) Carbon Dioxide Level 28mmol/L (21-32) Anion Gap 7 (6-14) Blood Urea Nitrogen 16mg/dL (7-20) Creatinine 4.2mg/dL (0.6-1.0) Estimated GFR (Cockcroft-Gault) 11.3 Glucose Level 99mg/dL (70-99) Calcium Level 8.2mg/dL (8.5-10.1) Phosphorus Level 4.2mg/dL (2.6-4.7) Albumin 2.2g/dL (3.4-5.0) Glucose (Fingerstick) 103mg/dL (70-99) Laboratory Tests Test 02/03/17 12:18 02/03/17 17:22 02/03/17 20:59 02/04/17 05:50 Glucose (Fingerstick) 108mg/dL (70-99) 127mg/dL (70-99) 124mg/dL (70-99) Sodium Level 138mmol/L (136-145) Potassium Level 4.2mmol/L (3.5-5.1) Chloride Level 103mmol/L (98-107) Carbon Dioxide Level 28mmol/L (21-32) Anion Gap 7 (6-14) Blood Urea Nitrogen 16mg/dL (7-20) Creatinine 4.2mg/dL (0.6-1.0) Estimated GFR (Cockcroft-Gault) 11.3 Glucose Level 99mg/dL (70-99) Calcium Level 8.2mg/dL (8.5-10.1) Phosphorus Level 4.2mg/dL (2.6-4.7) Albumin 2.2g/dL (3.4-5.0) Test 02/04/17 07:39 Glucose (Fingerstick) 103mg/dL (70-99) Meds Current Medications Darbepoetin Bacilio 60 mcg 60 mcg WEEKLYHS SQ ; Start 02/07/17 at 21:00; Status Cancel Hydromorphone HCl (Dilaudid) 2 mg PRN Q6HRS PRN PO PAIN; Start 02/04/17 at 12: 30 Info (PHARMACY MONITORING -- do not chart) 1 each PRN DAILY PRN MC SEE COMMENTS ; Start 02/04/17 at 07:30 Sodium Chloride (Iv Sodium Chloride 0.9% 1000ml Bag) 1,000 ml @ 400 mls/hr Q2H30M PRN IV PATENCY; Start 02/04/17 at 07:29; Stop 02/04/17 at 19:28 Sodium Chloride (Iv Sodium Chloride 0.9% 1000ml Bag) 1,000 ml @ 1,000 mls/hr Q1H PRN IV hypotension; Start 02/04/17 at 07:29; Stop 02/04/17 at 13:28 Sodium Chloride (Normal Saline Flush) 10 ml 1X PRN PRN IV AP catheter pack; Start 02/04/17 at 07:30; Stop 02/05/17 at 07:29 Sodium Chloride 10 ml 10 ml 1X PRN PRN IV DIPLOMATIC COURIER catheter pack; Start 02/04/17 at 07:30; Stop 02/05/17 at 07:29 Assessment Assessment 1. Right upper chest pain -MS r/t tunnelled dialysis catheter, not CAD 2. ESRD with recent ARF/CKD III ATN requiring HD 3x weekly . 3. DVT of the RLE IVC filter on 12/11/2016, on Eliquis with h/o PE, 4. 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 Chronic congestive heart failure, systolic ejection fraction of 30-35%, nonacute on admission 6. Diarrhea with previous negative C. diff improving with colestid 1gm BID, did not improve with cholestyramine. 7. Diabetes mellitus type 2 with neuropathy, peripheral vascular disease and chronic insulin use. 8. Anxiety and depression. 9. Hypertension. 10. Hyperlipidemia. 11. Coronary artery disease with history of myocardial infarction and percutaneous coronary intervention with stent placement. 12. Gastroesophageal reflux disease. 13. Chronic low back pain. 14. History of hypercapnic and hypoxic respiratory failure with narcotics. 15. Chronic obstructive pulmonary edema. 16. History of cerebrovascular accident. 17. Morbid obesity. 18. Obstructive sleep apnea, on oxygen by 3 liters nasal cannula at bedtime, and CPAP intolerant. 19. History of noncompliance. 20. anemia CD renal failure PLAN: R sided chest pain cardiology consult neg CAD r/t tunnelled dialysis catheter ESRD HD 3 time weekly renal consult Episode last week crying/pain all over after dialysis. labs drawn and given extra K and Mg. Wanted readmit b/c dialysis here did not hurt like it did out patient. D/W DPOA and pt-agreed to stay at [facility]. Admit Na 135 02/02 137 K 3.8 4.4 Mg 2.0 DM II FSBS/SSI BS [id number] Novulin 12u TID ac Levemir 24u at hs osteo R jerry/diabetic ulcer wound care Vanco IV ID consult 01/31-negative anemia CD Admit 9.9 02/02 9.0 aranesp injections CHF not acute Admit wt 295 02/02 297.12 daily weights nausea through night when anxious-has n/v diarrhea d/c Reglan and observe. Hypotension- improving.staff to check with cardiology about coreg- hol D/w today - he saw pt - HD cath site tender but no infection functioning well- pt has low pain tolerance- she wants to continue same catheter. DVT/GI prophylaxis eliquis PPI For further plan of care, please refer to the orders. Clinically improving- discharge to SNF.Long short term prognosis is poor. D/w pt about s/e of pain meds- resp failure,hypotension and sedation that she has problems with and advised to decrease use. Discharge Management - 35 minutes. Plan Plan For more details regarding further plans, please refer to the orders. Nutrition Consultation Dietary Evaluation: Recommendations by RD: Increase Calorie Intake, Protein supplementation Comments: Rec. Novasource Renal TID Rec. a daily Nephro-Tracey and 500 mg Vitamin C BID to aide with wound healing Expected Outcomes/Goals: meet 75% estimated nutrition needs Malnutrition Findings: Reduced Casing Tester Strength: N/A Malnutrition related to morbid: No Weight Status: Morbidly Obese CHELE SINGH MD Feb 04, 2017 11:08
[2017-02-04] MEDS ORDERED: HYDROmorphone 2 MG TABLET PO PRN (12:30)
[2017-02-04] MEDS: APIXABAN 5 MG TABLET. PO SCH (12:44)
[2017-02-04] MEDS: ASPIRIN ENTERIC COATED 81 MG TABLET.DR. PO SCH (12:44)
[2017-02-04] MEDS: PANTOPRAZOLE 40 MG TABLET.DR. PO SCH (12:44)
[2017-02-04] MEDS: fentaNYL 50MCG/HR PATCH 1 PATCH PATCH.TD72 TD SCH (12:45)
[2017-02-04] MEDS: LIDOCAINE (700MG/PATCH) PATCH. TD SCH (12:45)
[2017-02-04 14:41] VITALS: BP 87/56
[2017-02-07] MEDS ORDERED: DARBEPOETIN ALFA 60 MCG/0.3 ML DISP.SYRIN. SQ SCH (21:00)
== END 2017-02-04 17:58 | DRG 314 ==
LOC: ER 17:06 → 2 NORTH 19:04
PROVIDERS: ADMIT Internal Medicine; ATTEND Internal Medicine
PROC: 5A1D60Z (ICD-10-PCS; principal; 2017-02-02)
DX: T82.848A Pain due to vascular prosthetic devices, implants and grafts, initial encounter (principal); N18.6 End stage renal disease; E43 Unspecified severe protein-calorie malnutrition; I42.9 Cardiomyopathy, unspecified; I50.22 Chronic systolic (congestive) heart failure; I13.2 Hypertensive heart and chronic kidney disease with heart failure and with stage 5 chronic kidney disease, or end stage renal disease; Z68.42 Body mass index [BMI] 45.0-49.9, adult; L02.611 Cutaneous abscess of right foot; E11.22 Type 2 diabetes mellitus with diabetic chronic kidney disease; E11.40 Type 2 diabetes mellitus with diabetic neuropathy, unspecified; E66.01 Morbid (severe) obesity due to excess calories; E78.00 Pure hypercholesterolemia, unspecified; E78.5 Hyperlipidemia, unspecified; F32.9 Major depressive disorder, single episode, unspecified; F41.9 Anxiety disorder, unspecified; G47.33 Obstructive sleep apnea (adult) (pediatric); G89.29 Other chronic pain; I25.10 Atherosclerotic heart disease of native coronary artery without angina pectoris; I73.9 Peripheral vascular disease, unspecified; J44.9 Chronic obstructive pulmonary disease, unspecified; K21.9 Gastro-esophageal reflux disease without esophagitis; I25.2 Old myocardial infarction; Z82.49 Family history of ischemic heart disease and other diseases of the circulatory system; Z83.3 Family history of diabetes mellitus; Z86.711 Personal history of pulmonary embolism; Z86.718 Personal history of other venous thrombosis and embolism; Z86.73 Personal history of transient ischemic attack (TIA), and cerebral infarction without residual deficits; Z89.429 Acquired absence of other toe(s), unspecified side; Z91.19 Patient's noncompliance with other medical treatment and regimen; Z95.5 Presence of coronary angioplasty implant and graft; Z99.2 Dependence on renal dialysis; Z90.49 Acquired absence of other specified parts of digestive tract; Z88.6 Allergy status to analgesic agent; Z88.1 Allergy status to other antibiotic agents; Z88.0 Allergy status to penicillin; Z88.2 Allergy status to sulfonamides; Z88.8 Allergy status to other drugs, medicaments and biological substances; D63.1 Anemia in chronic kidney disease
CPT/HCPCS: 36415; 71010; 80048; 80053; 80069; 82947; 83735; 84484; 85027; 87040; 93005; 94250; 94640; 94760; 96374; 96375; J0881; J1815; J2270; J2405; J3370; J7040; J7620; J8597; Q0162; 99285-25

== ENCOUNTER 2017-02-09 12:12 | Emergency (ER) | payer MEDICARE, MEDICAID ==
[~2017-02-09] VITALS: Ht 171.4 cm; Wt 128.8 kg
[~2017-02-09 12:12] MED LIST changes: +MAGN400T3 PO; +NYST60PO TP
[2017-02-09] MEDS ORDERED: 0.9 % SODIUM CHLORIDE 10 ML DISP.SYRIN. IV PRN (12:30)
--- NOTE | 2017-02-09 12:47 | PHYS DOC ---
Past Medical History Past Medical History: CVA, Diabetes-Type II, DVT, GERD, High Cholesterol, Hypertension, MA, Renal Disease, Other Additional Past Medical Histor: PE, CHRONIC BACK PAIN, ENLARGED LIVER Past Surgical History: Angioplasty, Cholecystectomy, , Other Additional Past Surgical Histo: CARDIAC STENT, VENA CAVA FILTER, HERNIA SURG, 4TH & 5TH RIGHT TOE AMP Alcohol Use: None Drug Use: None Adult General Chief Complaint Chief Complaint: CHEST PAIN HPI HPI Patient is a pleasant 46-year-old female with history of hypertension and diabetes present on dialysis recently had a chest wall catheter placed 3 weeks ago. Dialysis every Wednesday since that time. Today she was at dialysis finishing up her dialysis run which felt some anterior chest wall palpation over the tract of the catheter she became very lightheaded and dizzy at the time and felt the chest pain radiating into her neck. She describes the chest pain as sharp and throbbing without radiation only to the neck not the arms it did make her lightheaded and dizzy. She had some chills at this time but no fevers documented she did not become diaphoretic not lose consciousness did not have any and allergic complaint. Her primary complaint today presently is 9 of 10 chest pain radiating from the chest wall with a catheters has been placed to the neck. 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 Her primary care doctor is Dr. Sanjiv Singh Review of Systems Review of Systems Constitutional: Denies fever he has had some unexplained chills. Eyes: Denies change in visual acuity, redness, or eye pain [] HENT: Denies nasal congestion or sore throat [] Respiratory: Denies cough or shortness of breath [] Cardiovascular: No additional information not addressed in HPI [] GI: Denies abdominal pain, nausea, vomiting, bloody stools or diarrhea [] : Denies dysuria or hematuria [] Musculoskeletal: Denies back pain or joint pain [] Integument: Denies rash or skin lesions [] Neurologic: He says some dizziness and generalized weakness with nothing focal. Endocrine: Denies polyuria or polydipsia [] Current Medications Current Medications Current Medications Medications (Trade) Dose Ordered Sig/Ant Start Time Stop Time Status Last Admin Dose Admin Fentanyl Citrate (Fentanyl 2ml Vial) 50 mcg PRN Q15MIN PRN 02/09/17 12:30 02/10/17 12:29 02/09/17 14:06 50 MCG Sodium Chloride (Normal Saline Flush) 10 ml QSHIFT PRN 02/09/17 12:30 Allergies Allergies Allergies Coded Allergies Type Severity Reaction Last Updated Verified Penicillins Allergy Severe causes swelling of throat 01/15/17 Yes Sulfa (Sulfonamide Antibiotics) Allergy Severe causes throat to swell 01/15/17 Yes amoxicillin Allergy Severe causes swelling of throat 01/15/17 Yes clarithromycin Allergy Severe causes throat to swell 01/15/17 Yes codeine Allergy Severe "closed up my throat and itching" 01/31/17 Yes hydrocodone Allergy Severe "closes up my throat and itching" 01/31/17 Yes silver sulfadiazine Allergy Severe Rash 01/15/17 Yes oxycodone Allergy Intermediate 01/15/17 Yes tramadol Allergy Intermediate Nausea and Vomiting 01/15/17 Yes I S O L A T I O N *CONTACT* Allergy Unknown 01/15/17 Yes Physical Exam Physical Exam Constitutional: Well developed, well nourished, no acute distress, non-toxic appearance. [] HENT: Normocephalic, atraumatic, bilateral external ears normal, oropharynx moist, no oral exudates, nose normal. [] Eyes: PERRLA, EOMI, conjunctiva normal, no discharge. [] Neck: Normal range of motion, no tenderness, supple, no stridor. [] Cardiovascular:Heart rate regular rhythm, no murmur [] Lungs & Thorax: Bilateral breath sounds clear to auscultation [] Abdomen: Bowel sounds normal, soft, no tenderness, no masses, no pulsatile masses. [] Skin: Warm, dry, no erythema, no rash. [] Back: No tenderness, no CVA tenderness. [] Extremities: No tenderness, no cyanosis, no clubbing, ROM intact, no edema. [] Neurologic: Alert and oriented X 3, normal motor function, normal sensory function, no focal deficits noted. [] Psychologic: Affect normal, judgement normal, mood normal. [] Current Patient Data Vital Signs Vital Signs Date Time Temp Pulse Resp B/P Pulse Ox O2 Delivery O2 Flow Rate FiO2 02/09/17 14:06 16 98 Nasal Cannula 4.0 02/09/17 12:14 98.6 106 117/70 98.6 Lab Values Laboratory Tests Test 02/09/17 13:10 White Blood Count 6.7x10^3/uL (4.0-11.0) Red Blood Count 3.96x10^6/uL (3.50-5.40) Hemoglobin 11.0g/dL (12.0-15.5) L Hematocrit 33.3% (36.0-47.0) L Mean Corpuscular Volume 84fL (79-100) Mean Corpuscular Hemoglobin 28pg (25-35) Mean Corpuscular Hemoglobin Concent 33g/dL (31-37) Red Cell Distribution Width 18.2% (11.5-14.5) H Platelet Count 253x10^3/uL (140-400) Neutrophils (%) (Auto) 67% (31-73) Lymphocytes (%) (Auto) 20% (24-48) L Monocytes (%) (Auto) 7% (0-9) Eosinophils (%) (Auto) 5% (0-3) H Basophils (%) (Auto) 1% (0-3) Neutrophils # (Auto) 4.5x10^3uL (1.8-7.7) Lymphocytes # (Auto) 1.3x10^3/uL (1.0-4.8) Monocytes # (Auto) 0.5x10^3/uL (0.0-1.1) Eosinophils # (Auto) 0.3x10^3/uL (0.0-0.7) Basophils # (Auto) 0.1x10^3/uL (0.0-0.2) Sodium Level 138mmol/L (136-145) Potassium Level 3.4mmol/L (3.5-5.1) L Chloride Level 102mmol/L (98-107) Carbon Dioxide Level 32mmol/L (21-32) Anion Gap 4 (6-14) L Blood Urea Nitrogen 7mg/dL (7-20) Creatinine 2.1mg/dL (0.6-1.0) H Estimated GFR (Cockcroft-Gault) 25.2 Glucose Level 88mg/dL (70-99) Calcium Level 8.1mg/dL (8.5-10.1) L Creatine Kinase 156U/L (26-192) Troponin I Quantitative 0.024ng/mL (0.000-0.055) Lipase 65U/L (73-393) L Laboratory Tests 02/09/17 13:10 Laboratory Tests 02/09/17 13:10 EKG EKG [Patient's EKG timed 12:19 PM heart rate of 106 sinus tachycardia noted with P waves and QRS there is a widened complex tachycardia with a nonspecific intraventricular delay noted there is an old Q-wave located anteriorly V1 and V2 V3 there is no widened QRS consistent with hyperkalemia.] Radiology/Procedures Radiology/Procedures [] Course & Med Decision Making Course & Med Decision Making Pertinent Labs and Imaging studies reviewed. (See chart for details) [At approximately 1247 Dr.Desai crane as for his partner return phone call agrees with initial assessment to get blood cultures and possible ultrasound of chest wall to look for abscess formation along the catheter sheet. Agrees with the medications and admission to the hospital for part for near-syncope workup. He also calls this chest wall pain is not new for this particular patient but agrees that chills are concerning.] Spoke with Dr. Singh approximately 1400 hrs. who agreed with the assessment and reasonable discharge to [facility] if ultrasound is negative with negative white count despite having chills patient had negative blood cultures last week for same symptoms is nothing new but the symptoms today cardiac enzymes chest x- ray are otherwise normal ultrasound again completed at approximately 1432 and reviewed by me there is no acute concerning findings of fluid collection patient denied discussed findings on ultrasound as well as laboratory reports. We discussed disposition back to the [facility] patient's final disposition will follow up with her primary care doctor. Differential diagnosis includes local abscess, cellulitis, deep space infection mediastinitis, pneumonia, pleural effusion, pericardial effusion, pleurisy, pulmonary edema Dragon Disclaimer Dragon Disclaimer This electronic medical record was generated, in whole or in part, using a voice recognition dictation system. Departure Departure Impression: Primary Impression: Chest pain Disposition: 03 TRANSFER SNF Condition: IMPROVED Referrals: CHELE SINGH MD (PCP) Patient Instructions: Chest Pain (Nonspecific), Near-Syncope Additional Instructions: Please return for any new or increasing symptoms, extremity questions and concerns about care, extremity fevers greater 102.2 despite treatment. Increased shortness of breath or new symptoms that he needed evaluation. Please Physician as scheduled tomorrow at the nursing facility. KULWANT VALDIVIA MD February 09, 2017 12:46
[2017-02-09] MEDS: fentaNYL PF VIAL 100 MCG/2 ML VIAL IV PRN ×2 (12:52→14:06)
--- NOTE | 2017-02-09 12:55 | RAD ---
Indication chest pain. A single view of the chest was obtained and is compared to an examination 01/31/2017. There has not been a significant change. Mild cardiomegaly is unchanged. Pulmonary vasculature is similar. A focal process is not seen. Right-sided dialysis catheter is noted. IMPRESSION: No significant change.
[2017-02-09 13:33] LABS: BASO # 0.1 x10^3/uL (0.0-0.2); BASO % 1 % (0-3); EOS % 5 % (0-3); HEMATOCRIT 33.3 % (36.0-47.0); LYMPH # 1.3 x10^3/uL (1.0-4.8); LYMPH % 20 % (24-48); MEAN CORPUSCULAR HEMOGLOBIN 28 pg (25-35); MEAN CORPUSCULAR HGB CONC 33 g/dL (31-37); MEAN CORPUSCULAR VOLUME 84 fL (79-100); MONO % 7 % (0-9); NEUT % 67 % (31-73); PLATELET COUNT 253 x10^3/uL (140-400); RED BLOOD COUNT 3.96 x10^6/uL (3.50-5.40); RED CELL DISTRIBUTION WIDTH 18.2 % (11.5-14.5); WHITE BLOOD COUNT 6.7 x10^3/uL (4.0-11.0)
[2017-02-09 13:34] LABS: CALCIUM 8.1 mg/dL (8.5-10.1); CREATININE 2.1 mg/dL (0.6-1.0); GFR 25.2; POTASSIUM 3.4 mmol/L (3.5-5.1)
--- NOTE | 2017-02-09 14:19 | RAD ---
Right chest wall ultrasound, 02/09/2017: History: Pain at catheter site The area of clinical concern was in the anterior aspect of the right upper chest at the site of insertion of a dialysis catheter. Sonographic evaluation of that region demonstrates no abnormal fluid collection or mass.
[2017-02-09 14:46] LABS: CKMB MASS 0.8 ng/mL (0.0-3.6)
--- NOTE | 2017-02-09 15:10 | EKG ---
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1970 Requested By: KULWANT VALDIVIA Order Number: [id number] Reading MD: Jess Rosales Measurements Intervals [place] Rate: 106 P: -152 OK: 180 QRS: -96 QRSD: 140 T: 13 QT: 372 QTc: 496 Interpretive Statements SINUS TACHYCARDIA NON SPECIFIC INTRAVENTRICULAR BLOCK RVH WITH REPOLARIZATION ABNORMALITY QRS(T) CONTOUR ABNORMALITY CONSISTENT WITH ANTERIOR INFARCT AGE UNDETERMINED CONSISTENT WITH INFEROLATERAL INFARCT PROBABLY OLD ABNORMAL ECG RI6.01 Compared to ECG 01/31/2017 18:00:12 Right superior axis now present Right ventricular hypertrophy now present Electronically Signed On 02-10-2017 20:39:53 CDT by Jess Rosales
[2017-02-09 15:14] VITALS: BP 102/51
== END 2017-02-09 16:13 ==
LOC: ER 12:12
DX: R07.89 Other chest pain (principal); I12.9 Hypertensive chronic kidney disease with stage 1 through stage 4 chronic kidney disease, or unspecified chronic kidney disease; E11.8 Type 2 diabetes mellitus with unspecified complications; N18.9 Chronic kidney disease, unspecified; E78.00 Pure hypercholesterolemia, unspecified; K21.9 Gastro-esophageal reflux disease without esophagitis; G89.29 Other chronic pain; Z86.711 Personal history of pulmonary embolism; I25.2 Old myocardial infarction; Z86.718 Personal history of other venous thrombosis and embolism; Z86.73 Personal history of transient ischemic attack (TIA), and cerebral infarction without residual deficits; Z90.49 Acquired absence of other specified parts of digestive tract; Z95.5 Presence of coronary angioplasty implant and graft; Z98.890 Other specified postprocedural states; Z88.0 Allergy status to penicillin; Z88.2 Allergy status to sulfonamides; Z88.1 Allergy status to other antibiotic agents; Z88.5 Allergy status to narcotic agent; Z88.6 Allergy status to analgesic agent; Z91.041 Radiographic dye allergy status
CPT/HCPCS: 36415; 71010; 76604; 80048; 82550; 82553; 83690; 83880; 84484; 85027; 87040; 93005; 96374; 96376; 99285; J3010

== ENCOUNTER → 2017-02-10 | Outpatient (CLI) | payer MEDICARE, MEDICAID ==
[2017-02-09 15:14] VITALS: BP 102/51
== END | disposition home or self-care (01) ==
LOC: PMGWOUND 07:47
PROVIDERS: ATTEND Preventive Medicine Undersea and Hyperbaric Medicine
DX: E11.621 Type 2 diabetes mellitus with foot ulcer (principal); L97.513 Non-pressure chronic ulcer of other part of right foot with necrosis of muscle; L89.622 Pressure ulcer of left heel, stage 2; L97.411 Non-pressure chronic ulcer of right heel and midfoot limited to breakdown of skin; E11.51 Type 2 diabetes mellitus with diabetic peripheral angiopathy without gangrene; I25.2 Old myocardial infarction; I25.10 Atherosclerotic heart disease of native coronary artery without angina pectoris; E78.00 Pure hypercholesterolemia, unspecified; I11.0 Hypertensive heart disease with heart failure; I50.9 Heart failure, unspecified; E66.9 Obesity, unspecified; E11.40 Type 2 diabetes mellitus with diabetic neuropathy, unspecified; K21.9 Gastro-esophageal reflux disease without esophagitis; Z68.42 Body mass index [BMI] 45.0-49.9, adult; Z86.718 Personal history of other venous thrombosis and embolism; Z87.891 Personal history of nicotine dependence; Z86.711 Personal history of pulmonary embolism; Z86.73 Personal history of transient ischemic attack (TIA), and cerebral infarction without residual deficits
CPT/HCPCS: 97597; 97598

== ENCOUNTER 2017-02-17 07:11 | Inpatient (IN) | payer MEDICARE, MEDICAID ==
[~2017-02-17] VITALS: Ht 170.2 cm; Wt 122.0 kg
[2017-02-17] MEDS ORDERED: 0.9 % SODIUM CHLORIDE 10 ML DISP.SYRIN. IV PRN ×3 (07:30→12:00)
[2017-02-17] MEDS ORDERED: fentaNYL PF VIAL 100 MCG/2 ML VIAL IV PRN ×2 (07:30→08:15)
[2017-02-17] MEDS ORDERED: NITROGLYCERIN SUBLINGUAL 0.4 MG BOTTLE OF 25. SL PRN ×2 (07:30→09:00)
[2017-02-17 07:34] LABS: BASO # 0.1 x10^3/uL (0.0-0.2); BASO % 1 % (0-3); EOS % 2 % (0-3); HEMATOCRIT 31.5 % (36.0-47.0); HEMOGLOBIN 10.4 g/dL (12.0-15.5); LYMPH % 11 % (24-48); MEAN CORPUSCULAR HEMOGLOBIN 28 pg (25-35); MEAN CORPUSCULAR HGB CONC 33 g/dL (31-37); MEAN CORPUSCULAR VOLUME 85 fL (79-100); MONO % 5 % (0-9); NEUT % 81 % (31-73); PLATELET COUNT 275 x10^3/uL (140-400); RED BLOOD COUNT 3.73 x10^6/uL (3.50-5.40); RED CELL DISTRIBUTION WIDTH 18.8 % (11.5-14.5); WHITE BLOOD COUNT 9.1 x10^3/uL (4.0-11.0)
--- NOTE | 2017-02-17 07:37 | RAD ---
Exam performed: One view chest. History: Chest pain this morning. Date of service: 02/17/17. Comparison: 02/09/17. Single AP upright portable view chest findings: Stable mild cardiomegaly. Pulmonary vascularity is mildly congested. No focal infiltrates, effusion or pneumothorax seen. Right-sided dialysis type catheter is seen. Impression: Stable cardiomegaly with mild central vascular congestion.
--- NOTE | 2017-02-17 07:39 | PHYS DOC ---
Past Medical History Past Medical History: COPD, CVA, Diabetes-Type II, DVT, GERD, High Cholesterol , Hypertension, OK, Renal Disease, Other Additional Past Medical Histor: PE, CHRONIC BACK PAIN, ENLARGED LIVER Past Surgical History: Angioplasty, Cholecystectomy, , Other Additional Past Surgical Histo: CARDIAC STENT, VENA CAVA FILTER, HERNIA SURG, 4TH & 5TH RIGHT TOE AMP Alcohol Use: None Drug Use: None Adult General Chief Complaint Chief Complaint: CHEST PAIN [facility] HPI This patient is a pleasant 46-year-old female with a history of CAD with prior stenting history of OK, history of hypertension, COPD requiring 3 L of nasal cannula's oxygen at night, reflux, end-stage renal disease on dialysis Wednesday, diabetes, who presents with chest pain that woke her up this morning at her sleep about 45 minutes prior to arrival. Patient describes pain as heavy pressure across the center of her chest with no radiation to the back neck arms or abdomen. Patient has had similar symptoms like this in the past. She admits to exertional dyspnea and increased chest pain with exertion. She denies any nausea, vomiting, diarrhea, abdominal pain or diaphoresis with pain. She describes no cough recent URI symptoms or need for antibiotics. 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 She denies any lower extremity swelling that's new. She does have a history of pulmonary was him requiring a CV filter. Review of Systems Review of Systems Constitutional: Denies fever or chills [] Eyes: Denies change in visual acuity, redness, or eye pain [] HENT: Denies nasal congestion or sore throat [] Respiratory: Complains of shortness of breath with exertion Cardiovascular: No additional information not addressed in HPI [] GI: Denies abdominal pain, nausea, vomiting, bloody stools or diarrhea [] : Denies dysuria or hematuria [] Musculoskeletal: Patient has chronic lower back pain and chronic joint pain. Integument: Denies rash or skin lesions [] Neurologic: Denies headache, focal weakness or sensory changes [] Endocrine: Denies polyuria or polydipsia [] Current Medications Current Medications Current Medications Medications (Trade) Dose Ordered Sig/Ant Start Time Stop Time Status Last Admin Dose Admin Fentanyl Citrate (Fentanyl 2ml Vial) 50 mcg PRN Q15MIN PRN 02/17/17 07:30 02/18/17 07:29 02/17/17 07:32 50 MCG Lorazepam (Ativan) 1 mg 1X ONCE 02/17/17 07:30 02/17/17 07:31 DC 02/17/17 07:32 1 MG Nitroglycerin (Nitrostat) 0.4 mg PRN Q5MIN PRN 02/17/17 07:30 02/18/17 07:29 02/17/17 07:31 0.4 MG Sodium Chloride (Normal Saline Flush) 10 ml QSHIFT PRN 02/17/17 07:30 02/17/17 07:32 10 ML Allergies Allergies Allergies Coded Allergies Type Severity Reaction Last Updated Verified Penicillins Allergy Severe causes swelling of throat 01/15/17 Yes Sulfa (Sulfonamide Antibiotics) Allergy Severe causes throat to swell 01/15/17 Yes amoxicillin Allergy Severe causes swelling of throat 01/15/17 Yes clarithromycin Allergy Severe causes throat to swell 01/15/17 Yes codeine Allergy Severe "closed up my throat and itching" 01/31/17 Yes hydrocodone Allergy Severe "closes up my throat and itching" 01/31/17 Yes silver sulfadiazine Allergy Severe Rash 01/15/17 Yes oxycodone Allergy Intermediate 01/15/17 Yes tramadol Allergy Intermediate Nausea and Vomiting 01/15/17 Yes I S O L A T I O N *CONTACT* Allergy Unknown 01/15/17 Yes Physical Exam Physical Exam Constitutional: Morbidly obese female pale in appearance nontoxic speaking in 10 -12 word sentences. HENT: Normocephalic, atraumatic, bilateral external ears normal, dry mucous membranes, no oral exudates, nose normal. [] Eyes: PERRLA, EOMI, conjunctiva normal, no discharge. [] Neck: Normal range of motion, no tenderness, supple, no stridor. [] Cardiovascular:Heart rate regular rhythm, no murmur [] Lungs & Thorax: Bilateral breath sounds clear to auscultation [] Abdomen: Bowel sounds normal, soft, no tenderness, no masses, no pulsatile masses. [] Skin: Warm, dry, no erythema, no rash. [] Back: No tenderness, no CVA tenderness. [] Extremities: Lower extremities bilaterally showed significant lower extremity edema with HUE hose on, no clubbing or cyanosis noted Neurologic: Alert and oriented X 3, normal motor function, normal sensory function, no focal deficits noted. [] Psychologic: Affect normal, judgement normal, mood normal. [] Current Patient Data Vital Signs Vital Signs Date Time Temp Pulse Resp B/P (MAP) Pulse Ox O2 Delivery O2 Flow Rate FiO2 02/17/17 07:31 92 121/70 02/17/17 07:11 98.9 20 85 Room Air 98.9 Lab Values Laboratory Tests Test 02/17/17 07:20 02/17/17 07:29 White Blood Count 9.1 x10^3/uL (4.0-11.0) Red Blood Count 3.73 x10^6/uL (3.50-5.40) Hemoglobin 10.4 g/dL (12.0-15.5) L Hematocrit 31.5 % (36.0-47.0) L Mean Corpuscular Volume 85 fL (79-100) Mean Corpuscular Hemoglobin 28 pg (25-35) Mean Corpuscular Hemoglobin Concent 33 g/dL (31-37) Red Cell Distribution Width 18.8 % (11.5-14.5) H Platelet Count 275 x10^3/uL (140-400) Neutrophils (%) (Auto) 81 % (31-73) H Lymphocytes (%) (Auto) 11 % (24-48) L Monocytes (%) (Auto) 5 % (0-9) Eosinophils (%) (Auto) 2 % (0-3) Basophils (%) (Auto) 1 % (0-3) Neutrophils # (Auto) 7.3 x10^3uL (1.8-7.7) Lymphocytes # (Auto) 1.0 x10^3/uL (1.0-4.8) Monocytes # (Auto) 0.4 x10^3/uL (0.0-1.1) Eosinophils # (Auto) 0.2 x10^3/uL (0.0-0.7) Basophils # (Auto) 0.1 x10^3/uL (0.0-0.2) Magnesium Level 2.0 mg/dL (1.8-2.4) Troponin I Quantitative 0.023 ng/mL (0.000-0.055) Lipase 77 U/L (73-393) Thyroid Stimulating Hormone (TSH) 2.122 uIU/mL (0.358-3.74) POC Troponin I 0.04 ng/ml (<0.08) Laboratory Tests 02/17/17 07:20 EKG EKG EKG timed 718 in the morning 02/17/2017 presents with heart rate of 90 sinus rhythm and occasional PAC Q wave noted in the anterior leads as well as a Q- wave in the inferior leads likely old. EKG read by Dr. Merritt [] Radiology/Procedures Radiology/Procedures [] Course & Med Decision Making Course & Med Decision Making Pertinent Labs and Imaging studies reviewed. (See chart for details) [Patient with a history of significant scored artery disease as well as pulmonary embolism hypertension reflux and end-stage renal disease with diabetes chest pain is concerning for possible cardiac source given exertional component. Given risk factors patient's heart score is 6 at this time given risk factors prior history and the physical findings. Patient will need admission to the hospital for rule out protocol. There may be some secondary issue with pain meds and issues. Patient is still wearing a physical patch on her shoulder and wears them for chronic bilateral foot pain. Spoke with patient 's primary care doctor Dr. Singh who agrees with disposition and admission to the hospital given high risk chest pain features and duration of symptoms. Patient will be admitted as an outpatient for short stay to rule out OK. Patient at this time is feeling better with fentanyl, aspirin, nitrates, oxygen and EKGs not demonstrating acute coronary ischemia. Patient will need evaluation by cardiology after rule out is complete. Impression: Chest pain unclear etiology likely cardiac in nature. Disposition: Admission to the hospital as an outpatient for chest pain rule out acute coronary event. Dragon Disclaimer Dragon Disclaimer This electronic medical record was generated, in whole or in part, using a voice recognition dictation system. Departure Departure Impression: Primary Impression: Chest pain Additional Impressions: DM (diabetes mellitus) Lymphedema of both lower extremities Disposition: ADMITTED INPATIENT Condition: GUARDED Referrals: CHELE SINGH MD (PCP) Problem Qualifiers KULWANT MERRITT MD February 17, 2017 07:39
--- NOTE | 2017-02-17 07:51 | ACF ---
Admission Forms Criteria CHEST PAIN Clinical Indications for Admission to Inpatient Care (Place 'X' for any and all applicable criteria): Admission is indicated for chest pain and ANY ONE of the following(1)(2)(3)(4)(5 ): [ ]I. Angina with acute coronary syndrome (Also use Myocardial Infarction or Angina guideline) [ ]II. Hemodynamic instability [X]III. Angina needing acute intervention as indicated by ALL of the following( 11)(12): [X]a) Unstable angina is present as indicated by angina that is ANY ONE of the following: [ ]i) New onset [ ]ii) Nocturnal [ ]iii) Prolonged at rest [X]iv) Progressive [X]b) Angina warrants acute intervention as indicated by ANY ONE of the following: [ ]i) Recurrent angina (e.g, not responding as previously to treatment) [ ]ii) Angina at rest or with low-level activities despite initial medical therapy [ ]iii) New or presumably new ST-segment depression on ECG [ ]iv) Signs or symptoms of heart failure (eg, dyspnea, pulmonary edema) [ ]v) New or worsening mitral regurgitation [ ]vi) Hemodynamic instability [ ]vii) Dangerous arrhythmia (eg, sustained ventricular tachycardia) [ ]viii) History of percutaneous coronary intervention within 6 months [ ]ix) History of coronary artery bypass graft surgery [ ]x) MAMIE risk score of 2 or greater[A] [X]xi) History of Diabetes(14) [ ]xii) High-risk cardiac ischemia findings on noninvasive testing (e.g, echocardiogram, treadmill testing, nuclear scan) [ ]xiii) Chronic renal insufficiency (ie, estimated GFR less than 60 mL/min/1.732m) [ ]xiv) Left ventricular ejection fraction less than 40% [ ]IV. Evidence of NC (eg, cardiac biomarkers positive, ST-segment elevation on ECG) also use Myocardial Infarction Criteria Form. [ ]V. Pulmonary edema [ ]. Respiratory distress [ ]VII. Chest pain indicative of serious diagnosis other than coronary artery disease (eg, aortic dissection) [ ]VIII. Contraindications and/or Inappropriate clinical situations for Observational Care in patients with Chest Pain, when ANY ONE of the following is required: [ ]a) Patient with risk factor for pulmonary embolism, acute coronary syndrome and myocardial infarction (18) [ ]b) Patient with Pulmonary embolism require an average LOS of 4.3 days, therefore emergency department observation management is inappropriate 18,23 [ ]c) Painful condition/s in the elderly, have the highest rate of recidivism after emergency department observation management (10.8%) 20,21,22 [ ]d) Elevated cardiac biomarker requires intensive and exhaustive care (19) [ ]IX. General contraindications and/or Inappropriate clinical situations for Observational Care in patients with Chest Pain, when ANY ONE of the following is required: [ ]a) Prediction of prolongation of LOS based on ANY ONE of the following may be considered as a contraindication for observational care 2, 3, 4, 5, 6, 7, 8, 9, 10, 11 [ ]i) Age > 65 yrs. [ ]ii) Patient arriving by ambulance [ ]iii) Patient with high acuity [ ]iv) Patient requiring vital sign monitoring [ ]v) Patient on IV medication [ ]b) Systolic blood pressures 180mmHg 3,12 [ ]c) Patient with altered mental status including delirium and other alteration of consciousness, (3) [ ]d) Patient whose discharge disposition will be to a long-term home or rehabilitation home should not be managed in Emergency Department Observation Unit. CMS rule requires 3 days hospital stay before such placement. 3,13 [ ]e) Patient with failure to thrive due to broad array of etiologies 3,16,17 [ ]f) Inability to ambulate 3,14 Extended stay beyond goal length of stay may be needed for (1)(28): [ ]a) Specific condition diagnosed after evaluation (eg, pulmonary embolism, aortic dissection) [ ]b) Unstable angina [ ]c) Continued suspicion of acute coronary syndrome with inability to complete needed cardiac evaluation (eg, patient clinically unable to undergo stress testing) [ ]d) Myocardial infarction (Contents from ANGINA and CHEST PAIN clinical indications for admission to inpatient care have been integrated in this form) The original [employer] content created by [employer] has been revised. The portions of the content which have been revised are identified through the use of italic text or in bold, and [employer] has neither reviewed nor approved the modified material. All other unmodified content is copyright [employer]. Please see references footnoted in the original [facility] edition 2016 Admission Criteria Met?: Yes LOGAN LOVE February 17, 2017 07:51
--- NOTE | 2017-02-17 07:52 | EKG ---
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
[2017-02-17] MEDS ORDERED: ONDANSETRON PF 4 MG/2 ML VIAL. IV PRN ×2 (08:15→09:00)
[2017-02-17 08:16] LABS: CKMB MASS 0.6 ng/mL (0.0-3.6); CREATINE KINASE 61 U/L (26-192)
[2017-02-17] MEDS ORDERED: HYDROmorphone 2 MG/ML VIAL IVP PRN (09:00)
[2017-02-17] MEDS ORDERED: ACETAMINOPHEN 325 MG TABLET. PO PRN (09:15)
[2017-02-17] MEDS ORDERED: MAGNESIUM HYDROXIDE 2,400 MG/30 ML ORAL.SUSP. PO PRN (09:15)
[2017-02-17] MEDS ORDERED: CALCIUM CARBONATE 500 MG TAB.CHEW PO PRN (09:15)
[2017-02-17 09:18] VITALS: BP 125/62
[2017-02-17] MEDS: CARVEDILOL 3.125 MG TABLET. PO SCH ×2 (09:30→17:00)
--- NOTE | 2017-02-17 09:33 | PDOC1 ---
YVONNE LAYNE [employer] 02/17/17 0933: HISTORY AND PHYSICAL Chief Complaint Chief Complaint This 46 year old female has been admitted with a chief complaint of chest pain. She was discharged on 02/04 to [facility] after evaluation for R sided chest/neck pain. It was non cardiac and r/t recent tunneled dialysis cath placement for ESRD/HD. She has also been under treatment for wound R foot ( abscess/cellulitis w/sepsis December 2015). A wound developed prior to the 01/31 admission on the L foot (large blister). Her wounds are managed by [facility] wound care and she was to be non weight bearing after discharge from SNU. Her brother is present during the exam and reports that Pat went to this morning and when exiting c/o chest pain, substernal non radiating, shortness of breath, diaphoresis. No c/o nausea or palpitations. 911 was called and she was transported to the ED. She was given ASA and lorazepam 1mg IV. She is deconditioned r/t limitations from wounds on bilateral feet. She has not been ambulating any distance. When she arrived at home she was using her scooter to keep R foot elevated and was mobile in the home. In ED CXR mild CHF. EKG no acute changes SR 90. LAB: BNP 5791 and Trop 0.23. There is a significant h/o KS , PCI in the past. She does have L sided chest wall pain but this is different from the R sided chest pain. She is admitted to [facility] for evaluation. . Problem List Problems Medical Problems: (1) Chest pain Status: Acute (2) Chronic kidney disease, stage IV (severe) Status: Acute (3) DM (diabetes mellitus) Status: Acute (4) Lymphedema of both lower extremities Status: Acute Past Medical History Cardiovascular: CAD, CHF (systolic EF 30-35% ), HTN, [place], Hyperlipidemia, Valve insufficiency (MV and tricuspid regurgitation ), Other (recurring DVT RLE with h/o DVT/PE anticoagulation resumed, PVD) Pulmonary: COPD, Pulmonary embolus, Other CENTRAL NERVOUS SYSTEM: CVA, Periperal neuropathy, Other (JENNA with chronic O2 3L NC at hs (CPAP intolerant)) GI: GERD Heme/Onc: Anemia NOS (chronic renal ) Hepatobiliary: Other (GUY ) Psych: Anxiety, Depression Musculoskeletal: low back pain (chronic ), Osteoarthritis, Other Renal/: Chronic renal failure (ESRD on HD MWF) Endocrine: 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 Remote h/o smoking/no ETOH or illicit drug use. Review of Symptoms Review of Symptoms A 14 point ROS was completed with the following noted as positive: per HPI with addition RLE pain mod to severe last night Other systems reviewed and negative. Medications Current Medications Fentanyl (Duragesic 50mcg/ Hr Patch) 1 patch Q3DAYS TD ; Start 02/17/17 at 09:00 ; Status UNV Fentanyl Citrate (Fentanyl 2ml Vial) 50 mcg PRN Q15MIN PRN IV PAIN GREATER THAN 3/10 Last administered on 02/17/17 07:32; Start 02/17/17 at 07:30; Stop at 09:04; Status DC Fentanyl Citrate (Fentanyl 2ml Vial) 50 mcg PRN Q1HR PRN IV PAIN; Start at 08:15; Stop 02/17/17 at 09:04; Status DC Hydromorphone HCl (Dilaudid) 0.2 mg PRN Q6HRS PRN IVP PAIN; Start 02/17/17 at 09:00; Status UNV Lorazepam (Ativan) 1 mg 1X ONCE IV Last administered on 02/17/17 07:32; Start 02/17/17 at 07:30; Stop 02/17/17 at 07:31; Status DC Nitroglycerin (Nitrostat) 0.4 mg PRN Q5MIN PRN SL CP RATING > 1/10 Last administered on 02/17/17 07:31; Start 02/17/17 at 07:30; Stop 02/17/17 at 09:04 ; Status DC Nitroglycerin (Nitrostat) 0.4 mg PRN Q5MIN PRN SL CP RATING > 1/10; Start 02/17 at 09:00; Status UNV Ondansetron HCl (Zofran) 4 mg PRN Q8HRS PRN IV NAUSEA/VOMITING; Start 02/17/17 at 08:15; Stop 02/17/17 at 09:04; Status DC Ondansetron HCl (Zofran) 4 mg PRN Q8HRS PRN IV NAUSEA/VOMITING; Start 02/17/17 at 09:00; Status UNV Sodium Chloride (Normal Saline Flush) 10 ml QSHIFT PRN IV AFTER MEDS AND BLOOD DRAWS Last administered on 02/17/17t 07:32; Start 02/17/17 at 07:30 Allergy Allergies Coded Allergies Type Severity Reaction Last Updated Verified Penicillins Allergy Severe causes swelling of throat 01/15/17 Yes Sulfa (Sulfonamide Antibiotics) Allergy Severe causes throat to swell 01/15/17 Yes amoxicillin Allergy Severe causes swelling of throat 01/15/17 Yes clarithromycin Allergy Severe causes throat to swell 01/15/17 Yes codeine Allergy Severe "closed up my throat and itching" 01/31/17 Yes hydrocodone Allergy Severe "closes up my throat and itching" 01/31/17 Yes silver sulfadiazine Allergy Severe Rash 01/15/17 Yes oxycodone Allergy Intermediate 01/15/17 Yes tramadol Allergy Intermediate Nausea and Vomiting 01/15/17 Yes I S O L A T I O N *CONTACT* Allergy Unknown 01/15/17 Yes Physical Exam Physical Exam General appearance - alert, ill appearing, and in no distress Mental Status - alert, oriented to person, place, and time, affect appropriate to mood Head - normal Chest - clear to auscultation, no wheezes, rales or rhonchi, symmetric air entry Heart - S1 and S2 normal Abdomen - soft, nontender, nondistended, BS+ Neurological - no acute neurological deficits noted Musculoskeletal - pain R LE, aching. MS chest wall pain L ant chest. Extremities - ++ pedal edema, bilateral dressings feet, tubi sybase developer in place. Skin - warm and dry VTE Prophylaxis Ordered VTE Prophylaxis Devices: No VTE Pharmacological Prophylaxi: Yes Assessment Labs Laboratory Tests Test 02/17/17 07:20 02/17/17 07:29 White Blood Count 9.1 x10^3/uL (4.0-11.0) Red Blood Count 3.73 x10^6/uL (3.50-5.40) Hemoglobin 10.4 g/dL (12.0-15.5) Hematocrit 31.5 % (36.0-47.0) Mean Corpuscular Volume 85 fL (79-100) Mean Corpuscular Hemoglobin 28 pg (25-35) Mean Corpuscular Hemoglobin Concent 33 g/dL (31-37) Red Cell Distribution Width 18.8 % (11.5-14.5) Platelet Count 275 x10^3/uL (140-400) Neutrophils (%) (Auto) 81 % (31-73) Lymphocytes (%) (Auto) 11 % (24-48) Monocytes (%) (Auto) 5 % (0-9) Eosinophils (%) (Auto) 2 % (0-3) Basophils (%) (Auto) 1 % (0-3) Neutrophils # (Auto) 7.3 x10^3uL (1.8-7.7) Lymphocytes # (Auto) 1.0 x10^3/uL (1.0-4.8) Monocytes # (Auto) 0.4 x10^3/uL (0.0-1.1) Eosinophils # (Auto) 0.2 x10^3/uL (0.0-0.7) Basophils # (Auto) 0.1 x10^3/uL (0.0-0.2) Magnesium Level 2.0 mg/dL (1.8-2.4) Creatine Kinase 61 U/L (26-192) Creatine Kinase MB (Mass) 0.6 ng/mL (0.0-3.6) Creatine Kinase MB Relative Index % (0-4) Troponin I Quantitative 0.023 ng/mL (0.000-0.055) GT-Hdy-D-Type Natriuretic Peptide 5791 pg/mL (0-124) Lipase 77 U/L (73-393) Thyroid Stimulating Hormone (TSH) 2.122 uIU/mL (0.358-3.74) Bedside Troponin I 0.04 ng/ml (<0.08) Laboratory Tests Test 02/17/17 07:20 02/17/17 07:29 White Blood Count 9.1 x10^3/uL (4.0-11.0) Red Blood Count 3.73 x10^6/uL (3.50-5.40) Hemoglobin 10.4 g/dL (12.0-15.5) Hematocrit 31.5 % (36.0-47.0) Mean Corpuscular Volume 85 fL (79-100) Mean Corpuscular Hemoglobin 28 pg (25-35) Mean Corpuscular Hemoglobin Concent 33 g/dL (31-37) Red Cell Distribution Width 18.8 % (11.5-14.5) Platelet Count 275 x10^3/uL (140-400) Neutrophils (%) (Auto) 81 % (31-73) Lymphocytes (%) (Auto) 11 % (24-48) Monocytes (%) (Auto) 5 % (0-9) Eosinophils (%) (Auto) 2 % (0-3) Basophils (%) (Auto) 1 % (0-3) Neutrophils # (Auto) 7.3 x10^3uL (1.8-7.7) Lymphocytes # (Auto) 1.0 x10^3/uL (1.0-4.8) Monocytes # (Auto) 0.4 x10^3/uL (0.0-1.1) Eosinophils # (Auto) 0.2 x10^3/uL (0.0-0.7) Basophils # (Auto) 0.1 x10^3/uL (0.0-0.2) Magnesium Level 2.0 mg/dL (1.8-2.4) Creatine Kinase 61 U/L (26-192) Creatine Kinase MB (Mass) 0.6 ng/mL (0.0-3.6) Creatine Kinase MB Relative Index % (0-4) Troponin I Quantitative 0.023 ng/mL (0.000-0.055) RR-Tvx-T-Type Natriuretic Peptide 5791 pg/mL (0-124) Lipase 77 U/L (73-393) Thyroid Stimulating Hormone (TSH) 2.122 uIU/mL (0.358-3.74) Bedside Troponin I 0.04 ng/ml (<0.08) Plan Plan IMPRESSION: 1. chest pain sub sternal with h/o CAD with h/o KS and PCI with stent placed 2. A/C systolic CHF EF 30-35% 3. ESRD requiring hemodialysis 4. DVT RLE 12/11/16 on Eliquis with h/o PE, DVT RLE & IVC filte 5. DM II with neuropathy, PVD, chronic insulin use 6. anxiety/depression 7. HTN 8. hyperlipidemia 9. CAD with h/o KS and PCI with stent placed 10. GERD 11. chronic LBP 12. h/o hypercapnic/hypoxic respiratory failure with narcotics 13. COPD 14. h/o CVA 15. COPD with remote h/o tobacco abuse 16. h/o urine retention 17. h/o R foot plantar diabetic ulcer non healing with osteomyelitis ( debridement to bone 06/26 s/p amputation R procedure 4th and 5th toes 07/16/16) 18. morbid obesity 19. JENNA O2 3L NC at hs (CPAP in tolerant) 20. severe chronic PCL malnutrition 21. non compliance with treatment R foot wound/edema 22. Infected R foot wound pseudomonas aeruginosa treated 23. L foot wound (blistered now just wound) 24. anemia CD renal PLAN: chest pain cardiology consult suspect secondary to deconditioning and activity mediated Troponin 0.23 EKG no acute changes CHF now on dialysis daily weight I/O ESRD renal consult Dialysis MWF wounds bilateral feet wound care consult determine weight bearing status deconditioning r/t minimal exertion from wounds/non wt bearing status PT OT Pain management Continue duragesic 50mcg topical IV Dilaudid 2mg IV prn q6hr. Anxiety when becomes anxious: symptomatic with n/v, crying, feeling sick all over consider antianxiety med-defer to Dr. Singh DVT/GI prophylaxis SCD/HUE PPI For more details regarding further plans, please refer to the orders. CHELE SINGH MD 02/17/17 0945: HISTORY AND PHYSICAL Plan Plan The patient was seen and examined by me. Chart reviewed and plan of care formulated. Discussed with, reviewed and agree with [employer]'s notes, plan of care and orders with modifications as necessary. For more details regarding further plans, please refer to the orders. YVONNE LAYNE APRN February 17, 2017 09:33 CHELE SINGH MD February 17, 2017 09:45
[2017-02-17] MEDS: fentaNYL 50MCG/HR PATCH 1 PATCH PATCH.TD72 TD SCH (09:56)
[2017-02-17] MEDS: HYDROmorphone 2 MG/ML VIAL IVP PRN ×2 (09:57→16:38)
[2017-02-17] MEDS: ASPIRIN ENTERIC COATED 81 MG TABLET.DR. PO SCH (10:00)
[2017-02-17] MEDS: COLESTIPOL HCL 1 GM TABLET PO SCH ×2 (10:00→21:17)
[2017-02-17] MEDS: MAGNESIUM OXIDE 400 MG TABLET PO SCH ×3 (10:00→21:17)
[2017-02-17] MEDS: NYSTATIN TOPICAL POWDER 15GM BOTTLE. TP SCH ×2 (10:00→21:18)
[2017-02-17] MEDS: APIXABAN 5 MG TABLET. PO SCH ×2 (10:00→21:17)
--- NOTE | 2017-02-17 10:15 | PDOC2 ---
JESSICA DOWNEY APRN 02/17/17 1015: CARDIAC CONSULT DATE OF CONSULT Date of Consult DATE: 02/17/17 TIME: 10:15 REASON FOR CONSULT Reason for Consult: chest pain REFERRING PHYSICIAN Referring Physician: Malathi Mobley APRN SOURCE Source: Chart review, Patient HISTORY OF PRESENT ILLNESS HISTORY OF PRESENT ILLNESS 46 year old female who developed bilateral upper and left chest pain while returning from the bathroom last night and riding a scooter. Pain described as sharp, though her story varies from provider to provider. Possibly associated with dyspnea but no other symptoms. No acute changes in EKG and troponin levels of 0.023 and 0.03 are not consistent with ACS. Reports pain is the same as when she was evaluated by this service on 02/01/2017. Reason for Visit: chest pain PAST MEDICAL HISTORY Past Medical History Cardiovascular: CAD, CHF (cardiomyopathy), HTN, [place], Hyperlipidemia, Other (PVD) Pulmonary: COPD, Pulmonary embolus, Other (JENNA - untreated) CENTRAL NERVOUS SYSTEM: CVA, Peripheral neuropathy GI: GERD, morbid obesity Heme/Onc: Anemia NOS Hepatobiliary: No pertinent hx Psych: Anxiety, Depression Musculoskeletal: low back pain, Osteoarthritis, Other (DVT RLE) Infectious disease: Other (C-diff, pseudomonas) ENT: No pertinent hx Renal/: Chronic renal insuff (ESRD) - left tunneled HD cath Endocrine: Diabetes (2) Dermatology: Other (right foot ulcer with osteomyelitis) PAST SURGICAL HISTORY Past Surgical History Cholecystectomy, , Hernia Repair, Other (toe amputation; IVC filter, recent right foot I & D 12/2016) FAMILY HISTORY Family History Diabetes, Heart Disease, Hypertension SOCIAL HISTORY Social History Smoke: No (quit) ALCOHOL: none Drugs: None CURRENT MEDICATIONS CURRENT MEDICATIONS Current Medications Medications (Trade) Dose Ordered Sig/Ant Route PRN Reason Start Time Stop Time Status Last Admin Dose Admin Lorazepam (Ativan) 1 mg 1X ONCE IV 02/17/17 07:30 02/17/17 07:31 DC 02/17/17 07:32 Nitroglycerin (Nitrostat) 0.4 mg PRN Q5MIN PRN SL CP RATING > 1/10 02/17/17 07:30 02/17/17 09:04 DC 02/17/17 07:31 Fentanyl Citrate (Fentanyl 2ml Vial) 50 mcg PRN Q15MIN PRN IV PAIN GREATER THAN 3/10 02/17/17 07:30 02/17/17 09:04 DC 02/17/17 07:32 Sodium Chloride (Normal Saline Flush) 10 ml QSHIFT PRN IV AFTER MEDS AND BLOOD DRAWS 02/17/17 07:30 02/17/17 07:32 Fentanyl (Duragesic 50mcg/ Hr Patch) 1 patch Q3DAYS TD 02/17/17 09:00 02/17/17 09:56 Hydromorphone HCl (Dilaudid) 2 mg PRN Q6HRS PRN IVP PAIN 02/17/17 09:45 02/17/17 09:57 ALLERGIES ALLERGIES: Coded Allergies: Penicillins (Verified Allergy, Severe, causes swelling of throat, 01/15/17) Sulfa (Sulfonamide Antibiotics) (Verified Allergy, Severe, causes throat to swell, 01/15/17) amoxicillin (Verified Allergy, Severe, causes swelling of throat, 01/15/17) clarithromycin (Verified Allergy, Severe, causes throat to swell, 01/15/17) codeine (Verified Allergy, Severe, "closed up my throat and itching", 01/31) tolerates percocet, Dilaudid is home med hydrocodone (Verified Allergy, Severe, "closes up my throat and itching", 01/31/17) tolerates percocet, Dilaudid is home med silver sulfadiazine (Verified Allergy, Severe, Rash, 01/15/17) oxycodone (Verified Allergy, Intermediate, 01/15/17) tramadol (Verified Allergy, Intermediate, Nausea and Vomiting, 01/15/17) I S O L A T I O N *CONTACT* (Verified Allergy, Unknown, 01/15/17) mrsa ROS Review of System 14 point review with pertinent positives in HPI PHYSICAL EXAM General: Alert, Cooperative HEENT: Atraumatic, PERRLA Lungs: Clear to auscultation Heart: Normal S1, Normal S2, No murmurs, Other (pain reproducible with palpation of bilateral upper chest and sternum) Abdomen: Normal bowel sounds, Other (truncal obesity) Extremities: Other (3+ edema in feet; remainder of leg not visible) Skin: Other (bilateral LE dressings) VITALS VITALS Vital Signs Date Time Temp Pulse Resp B/P (MAP) Pulse Ox O2 Delivery O2 Flow Rate FiO2 5/10/17 09:57 2 2.0 02/17/17 09:56 Nasal Cannula 02/17/17 09:18 98.5 86 18 125/62 (83) 98.5 LABS Lab: Laboratory Tests Test 02/17/17 07:20 02/17/17 07:29 White Blood Count 9.1 x10^3/uL (4.0-11.0) Red Blood Count 3.73 x10^6/uL (3.50-5.40) Hemoglobin 10.4 g/dL (12.0-15.5) Hematocrit 31.5 % (36.0-47.0) Mean Corpuscular Volume 85 fL (79-100) Mean Corpuscular Hemoglobin 28 pg (25-35) Mean Corpuscular Hemoglobin Concent 33 g/dL (31-37) Red Cell Distribution Width 18.8 % (11.5-14.5) Platelet Count 275 x10^3/uL (140-400) Neutrophils (%) (Auto) 81 % (31-73) Lymphocytes (%) (Auto) 11 % (24-48) Monocytes (%) (Auto) 5 % (0-9) Eosinophils (%) (Auto) 2 % (0-3) Basophils (%) (Auto) 1 % (0-3) Neutrophils # (Auto) 7.3 x10^3uL (1.8-7.7) Lymphocytes # (Auto) 1.0 x10^3/uL (1.0-4.8) Monocytes # (Auto) 0.4 x10^3/uL (0.0-1.1) Eosinophils # (Auto) 0.2 x10^3/uL (0.0-0.7) Basophils # (Auto) 0.1 x10^3/uL (0.0-0.2) Magnesium Level 2.0 mg/dL (1.8-2.4) Creatine Kinase 61 U/L (26-192) Creatine Kinase MB (Mass) 0.6 ng/mL (0.0-3.6) Creatine Kinase MB Relative Index % (0-4) Troponin I Quantitative 0.023 ng/mL (0.000-0.055) VJ-Ifp-R-Type Natriuretic Peptide 5791 pg/mL (0-124) Lipase 77 U/L (73-393) Thyroid Stimulating Hormone (TSH) 2.122 uIU/mL (0.358-3.74) Bedside Troponin I 0.04 ng/ml (<0.08) IMAGES IMAGES CXR - Stable cardiomegaly with mild central vascular congestion. EKG EKG no acute changes ECHOCARDIOGRAM ECHOCARDIOGRAM 07/2016: TTE: The Left Ventricle is mildly dilated. The systolic function is moderate to severely impaired. The Ejection Fraction is 30-35%. There is global hypokinesis of the left ventricle. There is no significant aortic valvular stenosis. Doppler and Color Flow revealed no significant aortic regurgitation. Doppler and Color-flow revealed mild mitral regurgitation. Doppler and Color Flow revealed trace tricuspid regurgitation. The PA pressure was estimated at 22 mmHg. ASSESSMENT/PLAN ASSESSMENT/PLAN 1. chest pain, noncardiac EKG and troponin levels not consistent with ACS pain reproducible and likely musculoskeletal in etiology - consider use of NSAIDs to treat pain rather than narcotics no further cardiac evaluation at this time recommend she follow up with her primary copy operator at 2. CAD by history with previous PCI details unknown 3. cardiomyopathy, presumed ischemic LVEF ~ 30% has declined ICD 4. chronic systolic HF fluid management per HD 5. HTN control with meds 6. HLD continue medications 7. ESRD with HD Will follow peripherally Please contact for further assistance Advise pt to follow up with [facility]-- Problems: SHEREEN ORTIZ MD 02/17/17 1606: CARDIAC CONSULT ALLERGIES ALLERGIES: Coded Allergies: Penicillins (Verified Allergy, Severe, causes swelling of throat, 01/15/17) Sulfa (Sulfonamide Antibiotics) (Verified Allergy, Severe, causes throat to swell, 01/15/17) amoxicillin (Verified Allergy, Severe, causes swelling of throat, 01/15/17) clarithromycin (Verified Allergy, Severe, causes throat to swell, 01/15/17) codeine (Verified Allergy, Severe, "closed up my throat and itching", 01/31) tolerates percocet, Dilaudid is home med hydrocodone (Verified Allergy, Severe, "closes up my throat and itching", 01/31/17) tolerates percocet, Dilaudid is home med silver sulfadiazine (Verified Allergy, Severe, Rash, 01/15/17) oxycodone (Verified Allergy, Intermediate, 01/15/17) tramadol (Verified Allergy, Intermediate, Nausea and Vomiting, 01/15/17) I S O L A T I O N *CONTACT* (Verified Allergy, Unknown, 01/15/17) mrsa ASSESSMENT/PLAN ASSESSMENT/PLAN Patient seen and examined. Agree with [employer]'s assessment and plan. Chest pain with atypical features, reproducible to palpation and most probably musculoskeletal. Slight troponin elevation probably secondary to renal insufficiency. Doubt ACS. Chronic systolic heart failure clinically well compensated. Continue hemodialysis per nephrology team. Follow-up with primary copy operator at [facility] upon discharge. Thank you for your consultation. Problems: JESSICA DOWNEY APRN February 17, 2017 10:15 SHEREEN ORTIZ MD February 17, 2017 16:06
[2017-02-17 11:01] VITALS: BP 91/54
[2017-02-17 11:02] LABS: CALCIUM 8.7 mg/dL (8.5-10.1); CREATININE 3.4 mg/dL (0.6-1.0); GFR 14.5; POTASSIUM 3.7 mmol/L (3.5-5.1)
--- NOTE | 2017-02-17 11:28 | PDOC2 ---
CONSULT Date of Consult Date of Consult DATE: 02/17/17 TIME: 11:24 Reason for Consult Reason for Consult: ESRD Referring Physician Referring Physician: FRANCISCO Identification/Chief Complaint Chief Complaint SOB AND CHEST PAIN Source Source: Chart review, Patient History of Present Illness Reason for Visit: THIS IS A 46 YR OLD ADMITTED WITH CHEST PAIN AND SOB. SHE HAS ESRD AND IS ON OP HD ON MWF. HER LABS ARE C/W ESRD. HER CXRAY SHOWED VASCULAR CONGESTION. ESRD IS DUE TO HTN AND DM II Past Medical History Cardiovascular: CAD, CHF (systolic EF 30-35% ), HTN, VA, Hyperlipidemia, Valve insufficiency (MV and tricuspid regurgitation ), Other (recurring DVT RLE with h/o DVT/PE anticoagulation resumed, PVD) Pulmonary: COPD, Pulmonary embolus, Other CENTRAL NERVOUS SYSTEM: CVA, Periperal neuropathy, Other (JENNA with chronic O2 3L NC at hs (CPAP intolerant)) GI: GERD Heme/Onc: Anemia NOS (chronic renal ) Hepatobiliary: Other (GUY ) Psych: Anxiety, Depression Musculoskeletal: low back pain (chronic ), Osteoarthritis, Other Renal/: Chronic renal failure (ESRD on HD MWF) Endocrine: 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), Hyperparathyroidism Past Surgical History Past Surgical History: Cholecystectomy, , Hernia Repair, Other (PCI/ stent coronary; IVC filter ) Family History Family History: No Significant, Diabetes, Heart Disease, Hypertension Social History ALCOHOL: none Drugs: None Lives: with Family Current Problem List Problem List Problems Medical Problems: (1) Chest pain Status: Acute (2) Chronic kidney disease, stage IV (severe) Status: Acute (3) DM (diabetes mellitus) Status: Acute (4) Lymphedema of both lower extremities Status: Acute Current Medications Current Medications Current Medications Lorazepam (Ativan) 1 mg 1X ONCE IV Last administered on 02/17/17 07:32; Start 02/17/17 at 07:30; Stop 02/17/17 at 07:31; Status DC Nitroglycerin (Nitrostat) 0.4 mg PRN Q5MIN PRN SL CP RATING > 1/10 Last administered on 02/17/17 07:31; Start 02/17/17 at 07:30; Stop 02/17/17 at 09:04 ; Status DC Fentanyl Citrate (Fentanyl 2ml Vial) 50 mcg PRN Q15MIN PRN IV PAIN GREATER THAN 3/10 Last administered on 02/17/17 07:32; Start 02/17/17 at 07:30; Stop at 09:04; Status DC Sodium Chloride (Normal Saline Flush) 10 ml QSHIFT PRN IV AFTER MEDS AND BLOOD DRAWS Last administered on 02/17/17 07:32; Start 02/17/17 at 07:30 Ondansetron HCl (Zofran) 4 mg PRN Q8HRS PRN IV NAUSEA/VOMITING; Start 02/17/17 at 08:15; Stop 02/17/17 at 09:04; Status DC Fentanyl Citrate (Fentanyl 2ml Vial) 50 mcg PRN Q1HR PRN IV PAIN; Start at 08:15; Stop 02/17/17 at 09:04; Status DC Nitroglycerin (Nitrostat) 0.4 mg PRN Q5MIN PRN SL CP RATING > 1/10; Start 02/17 at 09:00 Ondansetron HCl (Zofran) 4 mg PRN Q8HRS PRN IV NAUSEA/VOMITING; Start 02/17/17 at 09:00 Fentanyl (Duragesic 50mcg/ Hr Patch) 1 patch Q3DAYS TD Last administered on 09:56; Start 02/17/17 at 09:00 Hydromorphone HCl (Dilaudid) 0.2 mg PRN Q6HRS PRN IVP PAIN; Start 02/17/17 at 09:00; Stop 02/17/17 at 09:32; Status DC Acetaminophen (Tylenol) 650 mg PRN Q6HRS PRN PO MILD PAIN / TEMP; Start at 09:15 Apixaban (Eliquis) 5 mg BID PO ; Start 02/17/17 at 10:00 Ascorbic Acid (Vitamin C) 500 mg DAILY PO ; Start 02/17/17 at 10:00 Aspirin (Ecotrin) 81 mg DAILY PO ; Start 02/17/17 at 10:00 Atorvastatin Calcium (Lipitor) 40 mg HS PO ; Start 02/17/17 at 21:00 Calcium Carbonate/ Glycine (Tums) 500 mg PRN AFTMEALHC PRN PO INDIGESTION; Start 02/17/17 at 09:15 Carvedilol (Coreg) 3.125 mg BIDWMEALS PO ; Start 02/17/17 at 09:30 Colestipol HCl (Colestid) 1 gm BID@10,22 PO ; Start 02/17/17 at 10:00 Darbepoetin Bacilio (Aranesp) 60 mcg We SQ ; Start 02/17/17 at 21:00 Insulin Aspart (Novolog) 12 units TIDAC SQ ; Start 02/17/17 at 11:30 Insulin Detemir (Levemir) 24 units BID SQ ; Start 02/17/17 at 21:00 Albuterol/ Ipratropium (Duoneb) 3 ml RTQID NEB ; Start 02/17/17 at 12:00 Magnesium Hydroxide (Milk Of Magnesia) 2,400 mg PRN DAILY PRN PO CONSTIPATION; Start 02/17/17 at 09:15 Magnesium Oxide (Magnesium Oxide) 400 mg TID PO ; Start 02/17/17 at 10:00 Metoclopramide HCl (Reglan) 5 mg TIDAC PO ; Start 02/17/17 at 11:30 Nystatin (Nystop) 1 bossman BID TP ; Start 02/17/17 at 10:00 Pantoprazole Sodium (Protonix) 40 mg DAILYAC PO ; Start 02/17/17 at 11:30 Insulin Aspart (Novolog) TIDAC SQ ; Start 02/17/17 at 11:30 Hydromorphone HCl (Dilaudid) 2 mg PRN Q6HRS PRN IVP PAIN Last administered on t 09:57; Start 02/17/17 at 09:45 Active Scripts Active Nystop (Nystatin) 60 Gm Powder 1 Bossman TP BID Levemir Flextouch (Insulin Detemir) 100 Unit/1 Ml Insuln.pen 24 Units SQ BID [Hydromorphone Hcl] 2 MG Tablet 2 Mg PO PRN Q6HRS PRN Novolog Flexpen (Insulin Aspart) 100 Unit/1 Ml Insuln.pen 12 Unit SQ TIDAC Tylenol (Acetaminophen) 325 Mg Tablet 650 Mg PO PRN Q6HRS PRN Metoclopramide Hcl 10 Mg Tablet 5 Mg PO TIDAC Aranesp Syringe (Darbepoetin Bacilio In Polysorbat) 60 Mcg/0.3 Ml Disp.syrin 60 Mcg SQ WEEKLYHS Colestid (Colestipol Hcl) 1 Gm Tablet 1 Gm PO BID@10, Calcium Carbonate 200 Mg Tab.chew 500 Mg PO PRN AFTMEALHC PRN Vitamin C (Ascorbic Acid) 500 Mg Tablet 500 Mg PO DAILY Eliquis (Apixaban) 5 Mg Tablet 5 Mg PO BID FENTANYL 50mcg/hr (Fentanyl) 1 Each Patch.td72 1 Patch TD Q3DAYS Coreg (Carvedilol) 3.125 Mg Tablet 1 Tab PO BID Novolog Flexpen (Insulin Aspart) 100 Unit/1 Ml Insuln.pen 0-8 Unit SQ TID AC Zofran Odt (Ondansetron) 4 Mg Tab.rapdis 1 Tab SL PRN Q6HRS PRN Milk Of Magnesia (Magnesium Hydroxide) 400 Mg/5 Ml Oral.susp 2,400 Mg PO PRN DAILY PRN Duoneb 0.5-3(2.5) Mg/3 Ml (Albuterol/Ipratropium) 3 Ml Ampul.neb 3 Ml NEB RTQID Reported Magnesium Oxide 400 Mg Tablet 400 Mg PO TID Aspir 81 (Aspirin) 81 Mg Tablet.dr 81 Mg PO DAILY Nitrostat (Nitroglycerin) 0.4 Mg Tab.subl 0.4 Mg SL PRN Q5MIN PRN Atorvastatin Calcium 40 Mg Tablet 40 Mg PO HS Omeprazole 20 Mg Capsule.dr 20 Mg PO DAILY Allergies Allergies: Coded Allergies: Penicillins (Verified Allergy, Severe, causes swelling of throat, 01/15/17) Sulfa (Sulfonamide Antibiotics) (Verified Allergy, Severe, causes throat to swell, 01/15/17) amoxicillin (Verified Allergy, Severe, causes swelling of throat, 01/15/17) clarithromycin (Verified Allergy, Severe, causes throat to swell, 01/15/17) codeine (Verified Allergy, Severe, "closed up my throat and itching", 01/31) tolerates percocet, Dilaudid is home med hydrocodone (Verified Allergy, Severe, "closes up my throat and itching", 01/31/17) tolerates percocet, Dilaudid is home med silver sulfadiazine (Verified Allergy, Severe, Rash, 01/15/17) oxycodone (Verified Allergy, Intermediate, 01/15/17) tramadol (Verified Allergy, Intermediate, Nausea and Vomiting, 01/15/17) I S O L A T I O N *CONTACT* (Verified Allergy, Unknown, 01/15/17) mrsa ROS General: YES: Fatigue, Appetite PSYCHOLOGICAL ROS: YES: Anxiety, Depression Eyes: Yes Decreased vision HEENT: YES: Heacaches Respiratory: YES: Cough, Shortness of breath Cardiovascular: yes Chest Pain, yes Edema Gastrointestinal: Yes Constipation Genitourinary: YES Other (ANURIA) Musculoskeletal: Yes Muscular Weakness Neurological: Yes Weakness Skin: Yes Dry Skin Physical Exam General: Alert, Oriented X3, Cooperative, No acute distress HEENT: Atraumatic, PERRLA, Other (DECREASED AT BASES) Heart: Regular rate, Normal S1, Normal S2 Abdomen: Normal bowel sounds, Soft, No tenderness Extremities: No clubbing Skin: No rashes, Other (LE EDEMA BILATERALLY WITH STASIS DISCOLORATION) Vitals VITALS Vital Signs Date Time Temp Pulse Resp B/P (MAP) Pulse Ox O2 Delivery O2 Flow Rate FiO2 02/17/17 11:01 99.0 82 20 91/54 (66) 90 Nasal Cannula 99.0 02/17/17 09:57 2.0 Labs Labs Laboratory Tests Test 02/17/17 07:20 02/17/17 07:29 White Blood Count 9.1 x10^3/uL (4.0-11.0) Red Blood Count 3.73 x10^6/uL (3.50-5.40) Hemoglobin 10.4 g/dL (12.0-15.5) Hematocrit 31.5 % (36.0-47.0) Mean Corpuscular Volume 85 fL (79-100) Mean Corpuscular Hemoglobin 28 pg (25-35) Mean Corpuscular Hemoglobin Concent 33 g/dL (31-37) Red Cell Distribution Width 18.8 % (11.5-14.5) Platelet Count 275 x10^3/uL (140-400) Neutrophils (%) (Auto) 81 % (31-73) Lymphocytes (%) (Auto) 11 % (24-48) Monocytes (%) (Auto) 5 % (0-9) Eosinophils (%) (Auto) 2 % (0-3) Basophils (%) (Auto) 1 % (0-3) Neutrophils # (Auto) 7.3 x10^3uL (1.8-7.7) Lymphocytes # (Auto) 1.0 x10^3/uL (1.0-4.8) Monocytes # (Auto) 0.4 x10^3/uL (0.0-1.1) Eosinophils # (Auto) 0.2 x10^3/uL (0.0-0.7) Basophils # (Auto) 0.1 x10^3/uL (0.0-0.2) Sodium Level 141 mmol/L (136-145) Potassium Level 3.7 mmol/L (3.5-5.1) Chloride Level 104 mmol/L (98-107) Carbon Dioxide Level 30 mmol/L (21-32) Anion Gap 7 (6-14) Blood Urea Nitrogen 21 mg/dL (7-20) Creatinine 3.4 mg/dL (0.6-1.0) Estimated GFR (Cockcroft-Gault) 14.5 Glucose Level 206 mg/dL (70-99) Calcium Level 8.7 mg/dL (8.5-10.1) Magnesium Level 2.0 mg/dL (1.8-2.4) Creatine Kinase 61 U/L (26-192) Creatine Kinase MB (Mass) 0.6 ng/mL (0.0-3.6) Creatine Kinase MB Relative Index % (0-4) Troponin I Quantitative 0.023 ng/mL (0.000-0.055) FK-Uvm-L-Type Natriuretic Peptide 5791 pg/mL (0-124) Lipase 77 U/L (73-393) Thyroid Stimulating Hormone (TSH) 2.122 uIU/mL (0.358-3.74) Bedside Troponin I 0.04 ng/ml (<0.08) Laboratory Tests Test 02/17/17 07:20 02/17/17 07:29 White Blood Count 9.1 x10^3/uL (4.0-11.0) Red Blood Count 3.73 x10^6/uL (3.50-5.40) Hemoglobin 10.4 g/dL (12.0-15.5) Hematocrit 31.5 % (36.0-47.0) Mean Corpuscular Volume 85 fL (79-100) Mean Corpuscular Hemoglobin 28 pg (25-35) Mean Corpuscular Hemoglobin Concent 33 g/dL (31-37) Red Cell Distribution Width 18.8 % (11.5-14.5) Platelet Count 275 x10^3/uL (140-400) Neutrophils (%) (Auto) 81 % (31-73) Lymphocytes (%) (Auto) 11 % (24-48) Monocytes (%) (Auto) 5 % (0-9) Eosinophils (%) (Auto) 2 % (0-3) Basophils (%) (Auto) 1 % (0-3) Neutrophils # (Auto) 7.3 x10^3uL (1.8-7.7) Lymphocytes # (Auto) 1.0 x10^3/uL (1.0-4.8) Monocytes # (Auto) 0.4 x10^3/uL (0.0-1.1) Eosinophils # (Auto) 0.2 x10^3/uL (0.0-0.7) Basophils # (Auto) 0.1 x10^3/uL (0.0-0.2) Sodium Level 141 mmol/L (136-145) Potassium Level 3.7 mmol/L (3.5-5.1) Chloride Level 104 mmol/L (98-107) Carbon Dioxide Level 30 mmol/L (21-32) Anion Gap 7 (6-14) Blood Urea Nitrogen 21 mg/dL (7-20) Creatinine 3.4 mg/dL (0.6-1.0) Estimated GFR (Cockcroft-Gault) 14.5 Glucose Level 206 mg/dL (70-99) Calcium Level 8.7 mg/dL (8.5-10.1) Magnesium Level 2.0 mg/dL (1.8-2.4) Creatine Kinase 61 U/L (26-192) Creatine Kinase MB (Mass) 0.6 ng/mL (0.0-3.6) Creatine Kinase MB Relative Index % (0-4) Troponin I Quantitative 0.023 ng/mL (0.000-0.055) HW-Ktk-P-Type Natriuretic Peptide 5791 pg/mL (0-124) Lipase 77 U/L (73-393) Thyroid Stimulating Hormone (TSH) 2.122 uIU/mL (0.358-3.74) Bedside Troponin I 0.04 ng/ml (<0.08) Assessment/Plan Assessment/Plan IMP ESRD HYPERVOLEMIA ANEMIA CHEST PAIN DM III HTN CHRONIC LE EDEMA PLAN ARANESP HD TODAY UF TO DW ALSO CHALLENGE DW CARDIOLOGY EVAL AND TX SARA RUIZ MD February 17, 2017 11:28
[2017-02-17] MEDS: METOCLOPRAMIDE 10 MG TABLET. PO SCH ×2 (11:30→16:38)
[2017-02-17] MEDS: INSULIN ASPART 300 UNITS/3 ML INSULN.PEN SQ SCH ×4 (11:30→16:30)
[2017-02-17] MEDS ORDERED: IV NORMAL SALINE 1000ML BAG 1,000 ML IV PRN ×2 (11:49)
[2017-02-17] MEDS ORDERED: DIALYSIS PATIENT. MC PRN (12:00)
[2017-02-17] MEDS ORDERED: ALBUMIN HUMAN 25% 200 ML IV PRN (12:00)
[2017-02-17] MEDS ORDERED: IPRATRPIUM/ALBUTEROL 0.5/2.5MG 3 ML NEBU. NEB SCH (12:00)
[2017-02-17] MEDS ORDERED: ALBUTEROL SULFATE 2.5 MG/3 ML NEBU. NEB PRN (12:45)
[2017-02-17] MEDS: ASCORBIC ACID 500 MG TABLET PO SCH (16:38)
[2017-02-17] MEDS: PANTOPRAZOLE 40 MG TABLET.DR. PO SCH (16:38)
[2017-02-17] MEDS: methylPREDNISolone 4 MG TABLET. PO SCH (17:53)
[2017-02-17 19:35] VITALS: BP 88/52
[2017-02-17] MEDS ORDERED: DARBEPOETIN ALFA 60 MCG/0.3 ML DISP.SYRIN. SQ SCH ×2 (21:00)
[2017-02-17] MEDS: ATORVASTATIN CALCIUM 40 MG TABLET. PO SCH (21:17)
[2017-02-17] MEDS: INSULIN DETEMIR 300 UNITS/3 ML INSULN.PEN. SQ SCH (21:21)
[2017-02-17 23:35] VITALS: BP 92/54
[2017-02-18] VITALS (14 sets, daily range): BP systolic 86–116; BP diastolic 54–76
[2017-02-18] MEDS: HYDROmorphone 2 MG/ML VIAL IVP PRN (01:38)
[2017-02-18 04:39] LABS: BASO # 0.1 x10^3/uL (0.0-0.2); BASO % 2 % (0-3); EOS % 3 % (0-3); HEMATOCRIT 30.1 % (36.0-47.0); HEMOGLOBIN 9.8 g/dL (12.0-15.5); LYMPH # 1.4 x10^3/uL (1.0-4.8); LYMPH % 17 % (24-48); MEAN CORPUSCULAR HEMOGLOBIN 28 pg (25-35); MEAN CORPUSCULAR HGB CONC 33 g/dL (31-37); MEAN CORPUSCULAR VOLUME 85 fL (79-100); MONO % 6 % (0-9); NEUT % 72 % (31-73); PLATELET COUNT 249 x10^3/uL (140-400); RED BLOOD COUNT 3.56 x10^6/uL (3.50-5.40); RED CELL DISTRIBUTION WIDTH 19.2 % (11.5-14.5); WHITE BLOOD COUNT 8.1 x10^3/uL (4.0-11.0)
[2017-02-18 05:00] LABS: CALCIUM 8.7 mg/dL (8.5-10.1); CREATININE 2.8 mg/dL (0.6-1.0); GFR 18.1; POTASSIUM 3.9 mmol/L (3.5-5.1)
[2017-02-18] MEDS: INSULIN ASPART 300 UNITS/3 ML INSULN.PEN SQ SCH ×6 (07:30→18:02)
[2017-02-18] MEDS: CARVEDILOL 3.125 MG TABLET. PO SCH ×2 (08:00→17:00)
--- NOTE | 2017-02-18 08:03 | PDOC ---
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 02/18/17 0803: IM PROGRESS NOTES- Subjective Subjective feeling some better, Objective Objective alert, no distress Vitals Vital Signs Date Time Temp Pulse Resp B/P (MAP) Pulse Ox O2 Delivery O2 Flow Rate FiO2 02/18/17 03:35 98.6 72 14 95/67 (76) 96 Nasal Cannula 2.0 98.6 Input & Output Intake and Output 02/18/17 07:00 Intake Total 300 ml Output Total 0 ml Balance 300 ml Intake Oral 300 ml Output Urine Total 0 ml Physical Exam Physical Exam General appearance - alert, ill appearing, and in no distress Mental Status - alert, oriented to person, place, and time, affect appropriate to mood Head - normal Chest - clear to auscultation, no wheezes, rales or rhonchi, symmetric air entry Heart - S1 and S2 normal Abdomen - soft, nontender, nondistended, BS+ Neurological - no acute neurological deficits noted Musculoskeletal - pain R LE, aching. MS chest wall pain L ant chest. Extremities - ++ pedal edema, bilateral dressings feet, tubi fine hairer in place. Skin - warm and dry Labs Laboratory Tests Test 02/17/17 07:20 02/17/17 07:29 02/17/17 11:53 02/17/17 13:44 White Blood Count 9.1 x10^3/uL (4.0-11.0) Red Blood Count 3.73 x10^6/uL (3.50-5.40) Hemoglobin 10.4 g/dL (12.0-15.5) Hematocrit 31.5 % (36.0-47.0) Mean Corpuscular Volume 85 fL (79-100) Mean Corpuscular Hemoglobin 28 pg (25-35) Mean Corpuscular Hemoglobin Concent 33 g/dL (31-37) Red Cell Distribution Width 18.8 % (11.5-14.5) Platelet Count 275 x10^3/uL (140-400) Neutrophils (%) (Auto) 81 % (31-73) Lymphocytes (%) (Auto) 11 % (24-48) Monocytes (%) (Auto) 5 % (0-9) Eosinophils (%) (Auto) 2 % (0-3) Basophils (%) (Auto) 1 % (0-3) Neutrophils # (Auto) 7.3 x10^3uL (1.8-7.7) Lymphocytes # (Auto) 1.0 x10^3/uL (1.0-4.8) Monocytes # (Auto) 0.4 x10^3/uL (0.0-1.1) Eosinophils # (Auto) 0.2 x10^3/uL (0.0-0.7) Basophils # (Auto) 0.1 x10^3/uL (0.0-0.2) Sodium Level 141 mmol/L (136-145) Potassium Level 3.7 mmol/L (3.5-5.1) Chloride Level 104 mmol/L (98-107) Carbon Dioxide Level 30 mmol/L (21-32) Anion Gap 7 (6-14) Blood Urea Nitrogen 21 mg/dL (7-20) Creatinine 3.4 mg/dL (0.6-1.0) Estimated GFR (Cockcroft-Gault) 14.5 Glucose Level 206 mg/dL (70-99) Uric Acid 5.2 mg/dL (2.6-6.0) Calcium Level 8.7 mg/dL (8.5-10.1) Magnesium Level 2.0 mg/dL (1.8-2.4) Creatine Kinase 61 U/L (26-192) Creatine Kinase MB (Mass) 0.6 ng/mL (0.0-3.6) Creatine Kinase MB Relative Index % (0-4) Troponin I Quantitative 0.023 ng/mL (0.000-0.055) 0.031 ng/mL (0.000-0.055) DW-Pdc-A-Type Natriuretic Peptide 5791 pg/mL (0-124) Lipase 77 U/L (73-393) Thyroid Stimulating Hormone (TSH) 2.122 uIU/mL (0.358-3.74) Bedside Troponin I 0.04 ng/ml (<0.08) Glucose (Fingerstick) 146 mg/dL (70-99) Test 02/17/17 16:30 02/17/17 19:45 02/17/17 20:53 02/18/17 04:26 Glucose (Fingerstick) 93 mg/dL (70-99) 141 mg/dL (70-99) Troponin I Quantitative 0.018 ng/mL (0.000-0.055) White Blood Count 8.1 x10^3/uL (4.0-11.0) Red Blood Count 3.56 x10^6/uL (3.50-5.40) Hemoglobin 9.8 g/dL (12.0-15.5) Hematocrit 30.1 % (36.0-47.0) Mean Corpuscular Volume 85 fL (79-100) Mean Corpuscular Hemoglobin 28 pg (25-35) Mean Corpuscular Hemoglobin Concent 33 g/dL (31-37) Red Cell Distribution Width 19.2 % (11.5-14.5) Platelet Count 249 x10^3/uL (140-400) Neutrophils (%) (Auto) 72 % (31-73) Lymphocytes (%) (Auto) 17 % (24-48) Monocytes (%) (Auto) 6 % (0-9) Eosinophils (%) (Auto) 3 % (0-3) Basophils (%) (Auto) 2 % (0-3) Neutrophils # (Auto) 5.8 x10^3uL (1.8-7.7) Lymphocytes # (Auto) 1.4 x10^3/uL (1.0-4.8) Monocytes # (Auto) 0.5 x10^3/uL (0.0-1.1) Eosinophils # (Auto) 0.3 x10^3/uL (0.0-0.7) Basophils # (Auto) 0.1 x10^3/uL (0.0-0.2) Sodium Level 138 mmol/L (136-145) Potassium Level 3.9 mmol/L (3.5-5.1) Chloride Level 101 mmol/L (98-107) Carbon Dioxide Level 30 mmol/L (21-32) Anion Gap 7 (6-14) Blood Urea Nitrogen 14 mg/dL (7-20) Creatinine 2.8 mg/dL (0.6-1.0) Estimated GFR (Cockcroft-Gault) 18.1 Glucose Level 149 mg/dL (70-99) Calcium Level 8.7 mg/dL (8.5-10.1) Magnesium Level 2.0 mg/dL (1.8-2.4) Laboratory Tests Test 02/17/17 11:53 02/17/17 13:44 02/17/17 16:30 02/17/17 19:45 Glucose (Fingerstick) 146 mg/dL (70-99) 93 mg/dL (70-99) Troponin I Quantitative 0.031 ng/mL (0.000-0.055) 0.018 ng/mL (0.000-0.055) Test 02/17/17 20:53 02/18/17 04:26 Glucose (Fingerstick) 141 mg/dL (70-99) White Blood Count 8.1 x10^3/uL (4.0-11.0) Red Blood Count 3.56 x10^6/uL (3.50-5.40) Hemoglobin 9.8 g/dL (12.0-15.5) Hematocrit 30.1 % (36.0-47.0) Mean Corpuscular Volume 85 fL (79-100) Mean Corpuscular Hemoglobin 28 pg (25-35) Mean Corpuscular Hemoglobin Concent 33 g/dL (31-37) Red Cell Distribution Width 19.2 % (11.5-14.5) Platelet Count 249 x10^3/uL (140-400) Neutrophils (%) (Auto) 72 % (31-73) Lymphocytes (%) (Auto) 17 % (24-48) Monocytes (%) (Auto) 6 % (0-9) Eosinophils (%) (Auto) 3 % (0-3) Basophils (%) (Auto) 2 % (0-3) Neutrophils # (Auto) 5.8 x10^3uL (1.8-7.7) Lymphocytes # (Auto) 1.4 x10^3/uL (1.0-4.8) Monocytes # (Auto) 0.5 x10^3/uL (0.0-1.1) Eosinophils # (Auto) 0.3 x10^3/uL (0.0-0.7) Basophils # (Auto) 0.1 x10^3/uL (0.0-0.2) Sodium Level 138 mmol/L (136-145) Potassium Level 3.9 mmol/L (3.5-5.1) Chloride Level 101 mmol/L (98-107) Carbon Dioxide Level 30 mmol/L (21-32) Anion Gap 7 (6-14) Blood Urea Nitrogen 14 mg/dL (7-20) Creatinine 2.8 mg/dL (0.6-1.0) Estimated GFR (Cockcroft-Gault) 18.1 Glucose Level 149 mg/dL (70-99) Calcium Level 8.7 mg/dL (8.5-10.1) Magnesium Level 2.0 mg/dL (1.8-2.4) Meds Current Medications Acetaminophen (Tylenol) 650 mg PRN Q6HRS PRN PO MILD PAIN / TEMP; Start at 09:15 Albumin Human 200 ml @ 200 mls/hr 1X PRN PRN IV Hypotension; Start 02/17/17 at 12:00; Stop 02/17/17 at 17:59; Status DC Albuterol Sulfate (Ventolin Neb Soln) 2.5 mg PRN Q2HRS PRN NEB SHORTNESS OF BREATH; Start 02/17/17 at 12:45 Albuterol/ Ipratropium (Duoneb) 3 ml RTQID NEB Last administered on 02/17/17 12:16; Start 02/17/17 at 12:00; Stop 02/17/17 at 12:27; Status DC Apixaban (Eliquis) 5 mg BID PO Last administered on 02/17/17 21:17; Start 07/27 at 10:00 Ascorbic Acid (Vitamin C) 500 mg DAILY PO Last administered on 02/17/17 16:38 ; Start 02/17/17 at 10:00 Aspirin (Ecotrin) 81 mg DAILY PO ; Start 02/17/17 at 10:00 Atorvastatin Calcium (Lipitor) 40 mg HS PO Last administered on 02/17/17 21:17 ; Start 02/17/17 at 21:00 Calcium Carbonate/ Glycine (Tums) 500 mg PRN AFTMEALHC PRN PO INDIGESTION; Start 02/17/17 at 09:15 Carvedilol (Coreg) 3.125 mg BIDWMEALS PO ; Start 02/17/17 at 09:30 Colestipol HCl (Colestid) 1 gm BID@10,22 PO Last administered on 02/17/17 21: 17; Start 02/17/17 at 10:00 Darbepoetin Bacilio (Aranesp) 60 mcg We SQ Last administered on 02/17/17 21:23; Start 02/17/17 at 21:00 Darbepoetin Bacilio (Aranesp) 60 mcg We SQ ; Start 02/17/17 at 21:00; Status Cancel Fentanyl (Duragesic 50mcg/ Hr Patch) 1 patch Q3DAYS TD Last administered on 09:56; Start 02/17/17 at 09:00 Fentanyl Citrate (Fentanyl 2ml Vial) 50 mcg PRN Q1HR PRN IV PAIN; Start at 08:15; Stop 02/17/17 at 09:04; Status DC Hydromorphone HCl (Dilaudid) 0.2 mg PRN Q6HRS PRN IVP PAIN; Start 02/17/17 at 09:00; Stop 02/17/17 at 09:32; Status DC Hydromorphone HCl (Dilaudid) 2 mg PRN Q6HRS PRN IVP PAIN Last administered on 01:38; Start 02/17/17 at 09:45 Info (PHARMACY MONITORING -- do not chart) 1 each PRN DAILY PRN MC SEE COMMENTS ; Start 02/17/17 at 12:00 Insulin Aspart (Novolog) TIDAC SQ ; Start 02/17/17 at 11:30 Insulin Aspart (Novolog) 12 units TIDAC SQ ; Start 02/17/17 at 11:30 Insulin Detemir (Levemir) 24 units BID SQ Last administered on 02/17/17 21:21 ; Start 02/17/17 at 21:00 Magnesium Hydroxide (Milk Of Magnesia) 2,400 mg PRN DAILY PRN PO CONSTIPATION; Start 02/17/17 at 09:15 Magnesium Oxide (Magnesium Oxide) 400 mg TID PO Last administered on 02/17/17 21:17; Start 02/17/17 at 10:00 Methylprednisolone (Medrol) 4 mg DAILY PO Last administered on 02/17/17 17:53 ; Start 02/17/17 at 17:00 Metoclopramide HCl (Reglan) 5 mg TIDAC PO Last administered on 02/17/17 16:38 ; Start 02/17/17 at 11:30 Nitroglycerin (Nitrostat) 0.4 mg PRN Q5MIN PRN SL CP RATING > 1/10; Start 02/17 at 09:00 Nystatin (Nystop) 1 stephanie BID TP Last administered on 02/17/17 21:18; Start 07/27 at 10:00 Ondansetron HCl (Zofran) 4 mg PRN Q8HRS PRN IV NAUSEA/VOMITING; Start 02/17/17 at 08:15; Stop 02/17/17 at 09:04; Status DC Ondansetron HCl (Zofran) 4 mg PRN Q8HRS PRN IV NAUSEA/VOMITING; Start 02/17/17 at 09:00 Pantoprazole Sodium (Protonix) 40 mg DAILYAC PO Last administered on 02/17/17 16:38; Start 02/17/17 at 11:30 Sodium Chloride 1,000 ml @ 400 mls/hr Q2H30M PRN IV PATENCY; Start 02/17/17 at 11:49; Stop 02/18/17 at 02:07; Status DC Sodium Chloride 1,000 ml @ 1,000 mls/hr Q1H PRN IV hypotension; Start 02/17/17 at 11:49; Stop 02/17/17 at 17:48; Status DC Sodium Chloride (Normal Saline Flush) 10 ml 1X PRN PRN IV AP catheter pack; Start 02/17/17 at 12:00; Stop 02/18/17 at 11:59 Sodium Chloride (Normal Saline Flush) 10 ml 1X PRN PRN IV HYDRAULIC [employer] J[employer] MECH[employer]IC catheter pack; Start 02/17/17 at 12:00; Stop 02/18/17 at 11:59 Assessment Assessment IMPRESSION: 1. chest pain sub sternal with h/o CAD with h/o TX and PCI with stent placed - ruled non cardiac per cardiology 2. A/C systolic CHF EF 30-35% 3. ESRD requiring hemodialysis 4. DVT RLE 12/11/16 on Eliquis with h/o PE, DVT RLE & IVC filte 5. DM II with neuropathy, PVD, chronic insulin use 6. anxiety/depression 7. HTN 8. hyperlipidemia 9. CAD with h/o TX and PCI with stent placed 10. GERD 11. chronic LBP 12. h/o hypercapnic/hypoxic respiratory failure with narcotics 13. COPD 14. h/o CVA 15. COPD with remote h/o tobacco abuse 16. h/o urine retention 17. h/o R foot plantar diabetic ulcer non healing with osteomyelitis ( debridement to bone 06/26 s/p amputation R procedure 4th and 5th toes 07/16/16) 18. morbid obesity 19. JENNA O2 3L NC at hs (CPAP in tolerant) 20. severe chronic PCL malnutrition 21. non compliance with treatment R foot wound/edema 22. Infected R foot wound pseudomonas aeruginosa treated 23. L foot wound (blistered now just wound) 24. anemia CD renal 25. MS wall pain L anterior chest POA PLAN: chest pain cardiology consult suspect secondary to deconditioning and activity mediated Troponin 0.23 EKG no acute changes chest pain: 2 types at admission. MS L chest wall, substernal. Per cardiology: non cardiac When discharged, will f/u with benefits specialist. Pat advised to pace activity with PT OT guidelines when discharged home. CHF now on dialysis daily weight I/O ESRD renal consult Dialysis MWF wounds bilateral feet wound care consult determine weight bearing status deconditioning r/t minimal exertion from wounds/non wt bearing status PT OT Pain management Continue duragesic 50mcg topical IV Dilaudid 2mg IV prn q6hr.-DC 02/18 dilaudid 2mg po q 6hr prn Script given 02/14 when DC from SNU Anxiety when becomes anxious: symptomatic with n/v, crying, feeling sick all over consider antianxiety med requesting med to calm nerves-explained cannot prescribe narcotic analytics- will begin Effexor 5mg po daily, f/u office for management DVT/GI prophylaxis SCD/HUE PPI For more details regarding further plans, please refer to the orders. Plan to DC home with [facility] PT OT. See Discharge orders. Plan Plan . For more details regarding further plans, please refer to the orders. CHELE SINGH MD 02/18/17 0839: IM PROGRESS NOTES- Assessment Assessment Slowly improving. The patient was seen and examined by me. Chart reviewed and plan of care formulated. Discussed with, reviewed and agree with ASSISTANT DISTRICT ATTORNEY's notes, plan of care and orders with modifications as necessary. For more details regarding further plans, please refer to the orders. Discharge Management - 35 minutes. see in office in 5 days. Start Effexor for anxiety. YVONNE LAYNE APRN February 18, 2017 08:03 CHELE SINGH MD February 18, 2017 08:39
--- NOTE | 2017-02-18 08:07 | DISCH ---
DISCHARGE DISCHARGE DATE: February 19, 2017 FINAL DIAGNOSIS Problems Medical Problems: (1) Chest pain Status: Acute (2) Chronic kidney disease, stage IV (severe) Status: Acute (3) DM (diabetes mellitus) Status: Acute (4) Lymphedema of both lower extremities Status: Acute CONDITION ON DISCHARGE: Stable HOME HEALTH: Yes PT. HAS FUNCTIONAL LIMITATIONS: Yes FACE TO FACE ENCOUNTER: Yes POST DISCHARGE ORDERS WEIGHT BEARING STATUS: Full weight bearing (Right foot ), Partial weight bearing (toe touch L foot ) DIET AFTER DISCHARGE: Cardiac OTHER WOUND INSTRUCTIONS: wound care per wound care nurse for discharge OTHER ORDERS: F/U wound care per WC nurse instructions CHECKS AFTER DISCHARGE CHECKS AFTER DISCHARGE: Weigh Yourself Daily COMMENTS: check BS before meals, bring log to appt. FOLLOW-UP PHYSICIAN FOLLOW-UP: Dr. Johnson on Wednesday ADDITIONAL FOLLOW-UP: Dr. Peraza within two weeks; Dr. Boss in 2 weeks. TREATMENT/EQUIPMENT ORDERS ADAPTIVE EQUIPMENT NEEDED: Wheelchair RESPIRATORY EQUIPMENT NEEDED: Oxygen (2-3L NC continuous ), Nebulizer (QID ) YVONNE LAYNE APRN February 18, 2017 08:07
[2017-02-18] MEDS ORDERED: VENL37.5 PO (08:13)
--- NOTE | 2017-02-18 08:16 | DISCH ---
DISCHARGE WITH HOME HEALTH DISCHARGE INFORMATION: Discharge Date: February 18, 2017 Final Diagnosis: Problems Medical Problems: (1) Chest pain Status: Acute (2) Chronic kidney disease, stage IV (severe) Status: Acute (3) DM (diabetes mellitus) Status: Acute (4) Lymphedema of both lower extremities Status: Acute Condition on Discharge: Stable HOME HEALTH: Face to Face: I certify this patient is under my care and that I, or a nurse practitioner or physician's assistant tennis coach working with me, had a face to face encounter that meets the physician face to face encounter requirements with this patient on [Date]. Medical Condition(s): CHF Long Term For: Assess/Skilled Observatio Physical Therapy For: Evalulation/Treatment Occupational Therapy For: Evaluation/Treatment Home Health Aide For: Self-care Patient meets Homebound Statu: Limited distance walking FOLLOW-UP: Follow up with: Dr. Johnson on Wednesday Follow Up With: Dr. Peraza within one week --[facility] TREATMENT/EQUIPMENT ORDERS Discharge Respiratory Equipmen: Oxygen (2-3L NC), Nebulizer (QID ) CERTIFICATION STATEMENT: Certification Statement: Certification Statement: Based on the above finding, I certify that this patient is confined to the home and needs intermittent residential care, physical therapy and/or speech therapy, or continues to need occupational therapy.~ This patient is under my care, and I have initiated the establishment of the plan of care.~ This patient will be followed by myself or a community physician who will periodically review the plan of care. YVONNE LAYNE APRN February 18, 2017 08:16
[2017-02-18] MEDS: PANTOPRAZOLE 40 MG TABLET.DR. PO SCH (08:54)
[2017-02-18] MEDS: methylPREDNISolone 4 MG TABLET. PO SCH (08:54)
[2017-02-18] MEDS: VENLAFAXINE XR 37.5 MG CAP.ER.24H. PO SCH (08:54)
[2017-02-18] MEDS: APIXABAN 5 MG TABLET. PO SCH ×2 (08:55→20:58)
[2017-02-18] MEDS: ASPIRIN ENTERIC COATED 81 MG TABLET.DR. PO SCH (08:55)
[2017-02-18] MEDS: ASCORBIC ACID 500 MG TABLET PO SCH (08:55)
[2017-02-18] MEDS: MAGNESIUM OXIDE 400 MG TABLET PO SCH ×3 (08:55→20:58)
[2017-02-18] MEDS: METOCLOPRAMIDE 10 MG TABLET. PO SCH ×3 (08:58→17:40)
[2017-02-18] MEDS: HYDROmorphone 2 MG TABLET PO PRN ×2 (09:00→17:41)
[2017-02-18] MEDS: NYSTATIN TOPICAL POWDER 15GM BOTTLE. TP SCH ×2 (09:01→20:59)
[2017-02-18] MEDS: INSULIN DETEMIR 300 UNITS/3 ML INSULN.PEN. SQ SCH ×2 (09:06→20:59)
--- NOTE | 2017-02-18 09:43 | CONS ---
DATE OF CONSULTATION: 02/17/2017 REQUESTING PHYSICIAN: Dunia Johnson M.D. REASON FOR CONSULTATION: Right hand pain. HISTORY OF PRESENT ILLNESS: The patient is a 46-year-old morbidly obese female with multiple medical problems, has been admitted because of chest pain on the left side. She also complains of pain in the right hand from last 3-4 days. She described the episode as sudden in onset, associated with severe swelling and redness. She does get this kind of intermittent episodes. So, for further evaluation and management, Rheumatology consultation has been requested. PAST MEDICAL HISTORY: Coronary artery disease, congestive heart failure, hypertension, [place], hyperlipidemia, COPD, pulmonary emboli, CVA, peripheral neuropathy, GERD, anemia, depression, anxiety disorder, low back pain, chronic renal insufficiency on hemodialysis, diabetes with neuropathy. PAST SURGICAL HISTORY: Cholecystectomy, , hernia repair, coronary stent placement, IVC filter replacement. SOCIAL HISTORY: She denies any current smoking or alcohol abuse. FAMILY HISTORY: Negative for any autoimmune disease in the family. ALLERGIES: TO PENICILLIN, SULFA, AMOXICILLIN, CLARITHROMYCIN, CODEINE, SILVER SULFADIAZINE AND TRAMADOL. MEDICATIONS: I have reviewed the list of medication as per chart. REVIEW OF SYSTEMS: All other systems are reviewed and negative except for HPI. PHYSICAL EXAMINATION: GENERAL: She is awake, alert, oriented x 3, not in acute distress. VITAL SIGNS: Reveal temperature 99, pulse 82, respirations 20 and blood pressure 91/54. HEENT: Normocephalic and atraumatic head. No oral ulcerations. SKIN: She does not have any rash, but she has wounds on her legs with dressing on it. NECK: Supple. HEART: S1 and S2 regular. LUNGS: Clear to auscultation anteriorly. EXTREMITIES: 2+ pitting edema on the lower extremities. MUSCULOSKELETAL: Examination revealed mild tenderness, but synovitis on right second and third MCP and right second PIP joint. LABORATORY DATA: I have reviewed her laboratory test results and her uric acid is 5.2. ASSESSMENT: 1. Right hand pain. 2. 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 3. Renal insufficiency, on hemodialysis. 4. Diabetes with peripheral neuropathy. Her current clinical presentation is quite suggestive of crystal-induced inflammatory arthritis, more likely gout arthritis. Because of the acute flareup, her uric acid could be normal also. So, I will start her on the Medrol Dosepak today. Once her episode is resolved, then we can check her uric acid and start on appropriate medications. You may use any other analgesic on as-needed basis. If she gets discharged, I would like to have followup in 1-2 weeks. Thank you for allowing me to participate in her care. If you have any questions, please do not hesitate to contact me. JEN PETTIT MD DR: LUZ/britney JOB#: [id number] / [id number]
--- NOTE | 2017-02-18 10:14 | PDOC ---
Renal-Progress Notes Subjective Notes Notes RIGHT HAND PAIN. SOB IS BETTER History of Present Illness Hx of present illness STABLE Vitals Vitals Vital Signs Date Time Temp Pulse Resp B/P (MAP) Pulse Ox O2 Delivery O2 Flow Rate FiO2 02/18/17 09:00 18 Nasal Cannula 2.0 02/18/17 07:30 97.8 70 102/62 (75) 96 97.8 Weight Weight [ ] I.O. Intake and Output Intake and Output 02/18/17 07:00 Intake Total 300 ml Output Total 0 ml Balance 300 ml Intake Oral 300 ml Output Urine Total 0 ml Labs Labs Laboratory Tests Test 02/17/17 11:53 02/17/17 13:44 02/17/17 16:30 02/17/17 19:45 Glucose (Fingerstick) 146 mg/dL (70-99) 93 mg/dL (70-99) Troponin I Quantitative 0.031 ng/mL (0.000-0.055) 0.018 ng/mL (0.000-0.055) Test 02/17/17 20:53 02/18/17 04:26 02/18/17 07:56 Glucose (Fingerstick) 141 mg/dL (70-99) 131 mg/dL (70-99) White Blood Count 8.1 x10^3/uL (4.0-11.0) Red Blood Count 3.56 x10^6/uL (3.50-5.40) Hemoglobin 9.8 g/dL (12.0-15.5) Hematocrit 30.1 % (36.0-47.0) Mean Corpuscular Volume 85 fL (79-100) Mean Corpuscular Hemoglobin 28 pg (25-35) Mean Corpuscular Hemoglobin Concent 33 g/dL (31-37) Red Cell Distribution Width 19.2 % (11.5-14.5) Platelet Count 249 x10^3/uL (140-400) Neutrophils (%) (Auto) 72 % (31-73) Lymphocytes (%) (Auto) 17 % (24-48) Monocytes (%) (Auto) 6 % (0-9) Eosinophils (%) (Auto) 3 % (0-3) Basophils (%) (Auto) 2 % (0-3) Neutrophils # (Auto) 5.8 x10^3uL (1.8-7.7) Lymphocytes # (Auto) 1.4 x10^3/uL (1.0-4.8) Monocytes # (Auto) 0.5 x10^3/uL (0.0-1.1) Eosinophils # (Auto) 0.3 x10^3/uL (0.0-0.7) Basophils # (Auto) 0.1 x10^3/uL (0.0-0.2) Sodium Level 138 mmol/L (136-145) Potassium Level 3.9 mmol/L (3.5-5.1) Chloride Level 101 mmol/L (98-107) Carbon Dioxide Level 30 mmol/L (21-32) Anion Gap 7 (6-14) Blood Urea Nitrogen 14 mg/dL (7-20) Creatinine 2.8 mg/dL (0.6-1.0) Estimated GFR (Cockcroft-Gault) 18.1 Glucose Level 149 mg/dL (70-99) Calcium Level 8.7 mg/dL (8.5-10.1) Magnesium Level 2.0 mg/dL (1.8-2.4) Review of Systems Constitutional: yes: alert, oriented Ears/Nose/Throat: Yes: no symptom reported Eyes: Yes: no symptom reported Pulmonary: Yes dyspnea Cardiovascular: Yes no symptom reported Gastrointestional: Yes: constipation Musculoskeletal: Yes: joint pain, muscle stiffness Skin: Yes lesions Endocrine: Yes: no symptom reported Physical Exam General Appearance: no apparent distress Skin: warm Respiratory: bilateral CTA Abdomen: soft, bowel sounds present Neurology: alert, oriented Musculoskeletal: Other Assessment Assessment IMP HYPERVOLEMIA ANEMIA ESRD GOUT DM II PLAN HD TOMORROW RHEUM EVAL AND TX CONT ARANESP SARA RUIZ MD February 18, 2017 10:14
[2017-02-18] MEDS: COLESTIPOL HCL 1 GM TABLET PO SCH ×2 (10:36→20:58)
[2017-02-18] MEDS ORDERED: IOHEXOL 300 MG/ML 100ML VIAL. ONE (12:10)
[2017-02-18] MEDS ORDERED: LIDOCAINE 2% 20 ML VIAL. ONE (12:10)
[2017-02-18] MEDS ORDERED: HEPARIN for IV BOLUS 10,000 UNIT/10 ML VIAL. ONE (12:28)
[2017-02-18] MEDS ORDERED: fentaNYL PF VIAL 100 MCG/2 ML VIAL ONE (12:28)
[2017-02-18] MEDS ORDERED: MIDAZOLAM HCL/PF 2 MG/2 ML VIAL. ONE (12:28)
[2017-02-18] MEDS ORDERED: NITROGLYCERIN 200 MCG/2 ML SYRINGE FOR CATH/VASC LAB. ONE (12:28)
[2017-02-18] MEDS ORDERED: VERAPAMIL 5 MG/2 ML VIAL. ONE (12:28)
[2017-02-18] MEDS ORDERED: NITROGLYCERIN 200 MCG/2 ML SYRINGE FOR CATH/VASC LAB. IART ONE (12:30)
[2017-02-18] MEDS ORDERED: fentaNYL PF VIAL 100 MCG/2 ML VIAL IV ONE (12:30)
[2017-02-18] MEDS ORDERED: IOHEXOL 300 MG/ML 100ML VIAL. IART ONE (12:30)
[2017-02-18] MEDS ORDERED: HEPARIN for IV BOLUS 10,000 UNIT/10 ML VIAL. IART ONE (12:30)
[2017-02-18] MEDS ORDERED: LIDOCAINE 2% 20 ML VIAL. IJ ONE (12:30)
[2017-02-18] MEDS ORDERED: MIDAZOLAM HCL/PF 2 MG/2 ML VIAL. IV ONE (12:30)
[2017-02-18] MEDS ORDERED: VERAPAMIL 5 MG/2 ML VIAL. IART ONE (12:30)
[2017-02-18] MEDS ORDERED: CONTRAST GIVEN MC PRN (13:30)
[2017-02-18] MEDS ORDERED: fentaNYL PF VIAL 100 MCG/2 ML VIAL IV PRN (14:00)
--- NOTE | 2017-02-18 15:19 | CARD ---
APPROVED REPORT Procedure(s) performed: [facility] + Coronary angiography + Left ventriculogram. HISTORY : The patient is a 46 year-old female with a history of . INDICATION The indication(s) include : Persistent unrelenting chest pain suggestive of cardiac symptoms in a pat ient with multiple risk factors including ESRD, HTN and cardiomyopathy. . PROCEDURE NARRATIVE The patient was brought electively to the cardiac catheterization lab. A timeout was performed confi rming the patient's name, date of , procedure, and site of procedure. All necessary personnel w ere wearing the appropriate protective equipment and radiation monitor devices. After explaining the risks and benefits of the procedure and alternatives, informed consent was obtained. (See nursing no freddie for medications administered). The right wrist was sterilely prepped and draped in the usual fas hion. The right wrist was infiltrated with 1 mL of 2% lidocaine for subcutaneous anesthesia. A 6 Fr ench Terumo glide sheath was inserted into the right radial artery without difficulty. Right and lef t coronary angiography was performed using a 6Fr TIG 4.0 catheter. Left ventricular end diastolic pr essure was obtained with a pigtail catheter and pullback was performed after left ventriculography. All catheter exchanges and advancements were performed over a guidewire. At case completion the righ t radial sheath was removed and a Terumo radial band was applied with 13 ml of air. The patient tole rated the procedure well and there were no immediate complications. HEMODYNAMICS: LVEDP 30 mm Hg No gradient on LV to aortic pullback. LEFT VENTRICULOGRAM: EF 25%, severe global hypokinesis CORONARY ANGIOGRAPHY: LM is a large caliber vessel with normal angiographic appearance. LAD is a large caliber vessel with a patent proximal stent. D1/D2 are small caliber vessels with normal angiographic apeparance. LCx is a moderate caliber non-dominant vessel with normal angiographic appearance. OM1 is a moderate caliber vessel with normal angiographic appearance. RCA is a large caliber dominant vessel with normal angiographic appearance. RPDA and RPL are small caliber vessels with normal angiographic appearance. Conclusion 1. Severe LV dysfunction. EF 25%. 2. LVEDP 35 mm Hg 3. Patent LAD stent. Recommendations Aggressive Medical Therapy
[2017-02-18] MEDS ORDERED: ANTI-COAG MONITOR BY PHARMACY. MC PRN (16:15)
[2017-02-18] MEDS: ATORVASTATIN CALCIUM 40 MG TABLET. PO SCH (20:58)
[2017-02-19 03:11] VITALS: BP_SYST 109; BP_SYST 136; BP_DIAS 59; BP_DIAS 71
[2017-02-19] MEDS: HYDROmorphone 2 MG TABLET PO PRN ×4 (03:18→23:11)
--- NOTE | 2017-02-19 05:36 | PDOC3 ---
YVONNE LAYNE COTTON PICKER 02/19/17 0536: IM DISCHARGE & PROGRESS NOTES Date of Admission Date of Admission Date of Admission: February 17, 2017 at 08:01 Date of Discharge Date of Discharge 02/19/17 Primary Diagnosis Primary Diagnosis IMPRESSION: 1. chest pain sub sternal with h/o CAD with h/o ME and PCI with stent LAD. s/p CC negative 2. A/C systolic CHF EF 25% per CC 3. ESRD requiring hemodialysis 4. DVT RLE 12/11/16 on Eliquis with h/o PE, DVT RLE & IVC filte 5. DM II with neuropathy, PVD, chronic insulin use 6. anxiety/depression 7. HTN 8. hyperlipidemia 9. CAD with h/o ME and PCI with stent placed 10. GERD 11. chronic LBP 12. h/o hypercapnic/hypoxic respiratory failure with narcotics 13. COPD 14. h/o CVA 15. COPD with remote h/o tobacco abuse 16. h/o urine retention 17. h/o R foot plantar diabetic ulcer non healing with osteomyelitis ( debridement to bone 06/26 s/p amputation R procedure 4th and 5th toes 07/16/16)- resolved 18. morbid obesity 19. JENNA O2 3L NC at hs (CPAP in tolerant) 20. severe chronic PCL malnutrition 21. non compliance with treatment R foot wound/edema 22. Infected R foot wound pseudomonas aeruginosa treated 23. L foot wound (blistered now just wound)-open wound R Heel 24. anemia CD renal 25. MS wall pain L anterior chest POA 26., inflammatory arthritis clinically gout with neg uric acid Consults Consults Arelis Felipe MD, Dr. Procedures Procedures APPROVED REPORT Procedure(s) performed: [facility] + Coronary angiography + Left ventriculogram. HISTORY : The patient is a 46 year-old female with a history of . INDICATION The indication(s) include : Persistent unrelenting chest pain suggestive of cardiac symptoms in a patient with multiple risk factors including ESRD, HTN and cardiomyopathy. . PROCEDURE NARRATIVE The patient was brought electively to the cardiac catheterization lab. A timeout was performed confirming the patient's name, date of , procedure, and site of procedure. All necessary personnel were wearing the appropriate protective equipment and radiation monitor devices. After explaining the risks and benefits of the procedure and alternatives, informed consent was obtained. ( See nursing notes for medications administered). The right wrist was sterilely prepped and draped in the usual fashion. The right wrist was infiltrated with 1 mL of 2% lidocaine for subcutaneous anesthesia. A 6 Belgian Terumo glide sheath was inserted into the right radial artery without difficulty. Right and left coronary angiography was performed using a 6Fr TIG 4.0 catheter. Left ventricular end diastolic pressure was obtained with a pigtail catheter and pullback was performed after left ventriculography. All catheter exchanges and advancements were performed over a guidewire. At case completion the right radial sheath was removed and a Terumo radial band was applied with 13 ml of air. The patient tolerated the procedure well and there were no immediate complications. HEMODYNAMICS: LVEDP 30 mm Hg No gradient on LV to aortic pullback. LEFT VENTRICULOGRAM: EF 25%, severe global hypokinesis CORONARY ANGIOGRAPHY: LM is a large caliber vessel with normal angiographic appearance. LAD is a large caliber vessel with a patent proximal stent. D1/D2 are small caliber vessels with normal angiographic apeparance. LCx is a moderate caliber non-dominant vessel with normal angiographic appearance. OM1 is a moderate caliber vessel with normal angiographic appearance. RCA is a large caliber dominant vessel with normal angiographic appearance. RPDA and RPL are small caliber vessels with normal angiographic appearance. Conclusion 1. Severe LV dysfunction. EF 25%. 2. LVEDP 35 mm Hg 3. Patent LAD stent. Recommendations Aggressive Medical Therapy DICTATED and SIGNED BY: JU LEE MD DATE: 02/18/17 6658 Labs Labs Laboratory Tests Test 02/17/17 07:20 02/17/17 07:29 02/17/17 11:53 02/17/17 13:44 White Blood Count 9.1 x10^3/uL (4.0-11.0) Red Blood Count 3.73 x10^6/uL (3.50-5.40) Hemoglobin 10.4 g/dL (12.0-15.5) Hematocrit 31.5 % (36.0-47.0) Mean Corpuscular Volume 85 fL (79-100) Mean Corpuscular Hemoglobin 28 pg (25-35) Mean Corpuscular Hemoglobin Concent 33 g/dL (31-37) Red Cell Distribution Width 18.8 % (11.5-14.5) Platelet Count 275 x10^3/uL (140-400) Neutrophils (%) (Auto) 81 % (31-73) Lymphocytes (%) (Auto) 11 % (24-48) Monocytes (%) (Auto) 5 % (0-9) Eosinophils (%) (Auto) 2 % (0-3) Basophils (%) (Auto) 1 % (0-3) Neutrophils # (Auto) 7.3 x10^3uL (1.8-7.7) Lymphocytes # (Auto) 1.0 x10^3/uL (1.0-4.8) Monocytes # (Auto) 0.4 x10^3/uL (0.0-1.1) Eosinophils # (Auto) 0.2 x10^3/uL (0.0-0.7) Basophils # (Auto) 0.1 x10^3/uL (0.0-0.2) Sodium Level 141 mmol/L (136-145) Potassium Level 3.7 mmol/L (3.5-5.1) Chloride Level 104 mmol/L (98-107) Carbon Dioxide Level 30 mmol/L (21-32) Anion Gap 7 (6-14) Blood Urea Nitrogen 21 mg/dL (7-20) Creatinine 3.4 mg/dL (0.6-1.0) Estimated GFR (Cockcroft-Gault) 14.5 Glucose Level 206 mg/dL (70-99) Uric Acid 5.2 mg/dL (2.6-6.0) Calcium Level 8.7 mg/dL (8.5-10.1) Magnesium Level 2.0 mg/dL (1.8-2.4) Creatine Kinase 61 U/L (26-192) Creatine Kinase MB (Mass) 0.6 ng/mL (0.0-3.6) Creatine Kinase MB Relative Index % (0-4) Troponin I Quantitative 0.023 ng/mL (0.000-0.055) 0.031 ng/mL (0.000-0.055) TU-Wkr-K-Type Natriuretic Peptide 5791 pg/mL (0-124) Lipase 77 U/L (73-393) Thyroid Stimulating Hormone (TSH) 2.122 uIU/mL (0.358-3.74) Bedside Troponin I 0.04 ng/ml (<0.08) Glucose (Fingerstick) 146 mg/dL (70-99) Test 02/17/17 16:30 02/17/17 19:45 02/17/17 20:53 02/18/17 04:26 Glucose (Fingerstick) 93 mg/dL (70-99) 141 mg/dL (70-99) Troponin I Quantitative 0.018 ng/mL (0.000-0.055) White Blood Count 8.1 x10^3/uL (4.0-11.0) Red Blood Count 3.56 x10^6/uL (3.50-5.40) Hemoglobin 9.8 g/dL (12.0-15.5) Hematocrit 30.1 % (36.0-47.0) Mean Corpuscular Volume 85 fL (79-100) Mean Corpuscular Hemoglobin 28 pg (25-35) Mean Corpuscular Hemoglobin Concent 33 g/dL (31-37) Red Cell Distribution Width 19.2 % (11.5-14.5) Platelet Count 249 x10^3/uL (140-400) Neutrophils (%) (Auto) 72 % (31-73) Lymphocytes (%) (Auto) 17 % (24-48) Monocytes (%) (Auto) 6 % (0-9) Eosinophils (%) (Auto) 3 % (0-3) Basophils (%) (Auto) 2 % (0-3) Neutrophils # (Auto) 5.8 x10^3uL (1.8-7.7) Lymphocytes # (Auto) 1.4 x10^3/uL (1.0-4.8) Monocytes # (Auto) 0.5 x10^3/uL (0.0-1.1) Eosinophils # (Auto) 0.3 x10^3/uL (0.0-0.7) Basophils # (Auto) 0.1 x10^3/uL (0.0-0.2) Sodium Level 138 mmol/L (136-145) Potassium Level 3.9 mmol/L (3.5-5.1) Chloride Level 101 mmol/L (98-107) Carbon Dioxide Level 30 mmol/L (21-32) Anion Gap 7 (6-14) Blood Urea Nitrogen 14 mg/dL (7-20) Creatinine 2.8 mg/dL (0.6-1.0) Estimated GFR (Cockcroft-Gault) 18.1 Glucose Level 149 mg/dL (70-99) Calcium Level 8.7 mg/dL (8.5-10.1) Magnesium Level 2.0 mg/dL (1.8-2.4) Test 02/18/17 07:56 02/18/17 11:41 02/18/17 17:35 02/18/17 20:56 Glucose (Fingerstick) 131 mg/dL (70-99) 124 mg/dL (70-99) 104 mg/dL (70-99) 104 mg/dL (70-99) Medications Medications Medications reviewed and reconciled for discharge. Brief hospital course Brief hospital course This 46 year old female who presented with chest pain was admitted. The following is a summary of her treatment: chest pain cardiology consult suspect secondary to deconditioning and activity mediated Troponin 0.23 EKG no acute changes chest pain: 2 types at admission. MS Karan chest wall, substernal. Per cardiology: non cardiac When discharged, will f/u with [facility] music adapter. Pat advised to pace activity with PT OT guidelines when discharged home. CC: stent LAD, neg otherwise, EF 25% 02/19/16 Stent LAD CHF now on dialysis daily weight I/O EF has decreased to 25% DC weight 280# ESRD renal consult Dialysis MWF wounds bilateral feet wound care consult determine weight bearing status R wound healed-can weight bear toe touch L foot and off load heel deconditioning r/t minimal exertion from wounds/non wt bearing status PT OT Pain management Continue duragesic 50mcg topical IV Dilaudid 2mg IV prn q6hr.-DC 02/18 dilaudid 2mg po q 6hr prn Script given 02/14 when DC from [facility] Rheumatology consult: clinically gout, inflammatory arth. Medrol dose pk. See in 2 weeks Anxiety when becomes anxious: symptomatic with n/v, crying, feeling sick all over consider antianxiety med requesting med to calm nerves-explained cannot prescribe narcotic analytics- will begin Effexor 3.75mg po daily, f/u office for management DVT/GI prophylaxis SCD/HUE PPI For more details regarding the past history, family history, social history, surgical history and other details, please refer to History and Physical. Pretty will be discharged home with HHN, PT, OT. Please see discharge orders. Subjective continues joint pain Objective alert, no distress Vitals Vital Signs Date Time Temp Pulse Resp B/P (MAP) Pulse Ox O2 Delivery O2 Flow Rate FiO2 02/19/17 03:18 16 Nasal Cannula 02/19/17 03:11 98.7 81 109/71 (84) 97 2.0 98.7 Physical Exam General appearance - alert, ill appearing, and in no distress Mental Status - alert, oriented to person, place, and time, affect appropriate to mood Head - normal Chest - clear to auscultation, no wheezes, rales or rhonchi, symmetric air entry Heart - S1 and S2 normal Abdomen - soft, nontender, nondistended, BS+ Neurological - no acute neurological deficits noted Musculoskeletal - pain R LE, aching. MS chest wall pain L ant chest. Extremities - ++ pedal edema, bilateral dressings feet, tubi barrow worker helper in place. Skin - warm and dry Medications Medications reviewed. Allergy Allergies Coded Allergies Type Severity Reaction Last Updated Verified Penicillins Allergy Severe causes swelling of throat 01/15/17 Yes Sulfa (Sulfonamide Antibiotics) Allergy Severe causes throat to swell 01/15/17 Yes amoxicillin Allergy Severe causes swelling of throat 01/15/17 Yes clarithromycin Allergy Severe causes throat to swell 01/15/17 Yes codeine Allergy Severe "closed up my throat and itching" 01/31/17 Yes hydrocodone Allergy Severe "closes up my throat and itching" 01/31/17 Yes silver sulfadiazine Allergy Severe Rash 01/15/17 Yes oxycodone Allergy Intermediate 01/15/17 Yes tramadol Allergy Intermediate Nausea and Vomiting 01/15/17 Yes I S O L A T I O N *CONTACT* Allergy Unknown 01/15/17 Yes Follow up Wednesday next week. Disposition: Home health services Comments Discharge Management - 35 minutes. For other details please refer to discharge instructions CHELE SINGH MD 02/19/17 0955: IM DISCHARGE & PROGRESS NOTES Brief hospital course Brief hospital course She feels very weak,dizzy. Aching all over.Does not think she can do outside HD. she does not get home till 9 PM. Do HD here and monitor BP. discharge tomorrow. The patient was seen and examined by me. Chart reviewed and plan of care formulated. Discussed with, reviewed and agree with SEARCH DEVELOPER's notes, plan of care and orders with modifications as necessary. For more details regarding further plans, please refer to the orders. YVONNE LAYNE APRN February 19, 2017 05:36 CHELE SINGH MD February 19, 2017 09:55
[2017-02-19] MEDS ORDERED: METH4TAB2 PO (05:44)
[2017-02-19 07:30] VITALS: BP 92/60
[2017-02-19] MEDS: INSULIN ASPART 300 UNITS/3 ML INSULN.PEN SQ SCH ×6 (07:30→17:37)
[2017-02-19] MEDS: CARVEDILOL 3.125 MG TABLET. PO SCH ×2 (08:00→17:30)
[2017-02-19] MEDS: INSULIN DETEMIR 300 UNITS/3 ML INSULN.PEN. SQ SCH ×2 (09:00→21:14)
[2017-02-19 09:25] LABS: CALCIUM 8.6 mg/dL (8.5-10.1); CREATININE 3.3 mg/dL (0.6-1.0); POTASSIUM 4.1 mmol/L (3.5-5.1)
[2017-02-19] MEDS: ASPIRIN ENTERIC COATED 81 MG TABLET.DR. PO SCH (09:38)
[2017-02-19] MEDS: APIXABAN 5 MG TABLET. PO SCH ×2 (09:38→21:04)
[2017-02-19] MEDS: COLESTIPOL HCL 1 GM TABLET PO SCH ×2 (09:38→21:04)
[2017-02-19] MEDS: PANTOPRAZOLE 40 MG TABLET.DR. PO SCH (09:38)
[2017-02-19] MEDS: ASCORBIC ACID 500 MG TABLET PO SCH (09:38)
[2017-02-19] MEDS: METOCLOPRAMIDE 10 MG TABLET. PO SCH ×3 (09:38→17:36)
[2017-02-19] MEDS: MAGNESIUM OXIDE 400 MG TABLET PO SCH ×3 (09:38→21:04)
[2017-02-19] MEDS: methylPREDNISolone 4 MG TABLET. PO SCH (09:38)
[2017-02-19] MEDS: VENLAFAXINE XR 37.5 MG CAP.ER.24H. PO SCH (09:38)
[2017-02-19] MEDS: NYSTATIN TOPICAL POWDER 15GM BOTTLE. TP SCH ×2 (09:39→21:04)
[2017-02-19 10:58] VITALS: BP 88/57
--- NOTE | 2017-02-19 11:05 | PDOC ---
Renal-Progress Notes Subjective Notes Notes FEELING BETTER AND LESS SOB History of Present Illness Hx of present illness STABLE Vitals Vitals Vital Signs Date Time Temp Pulse Resp B/P (MAP) Pulse Ox O2 Delivery O2 Flow Rate FiO2 02/19/17 10:58 99.0 81 18 88/57 (67) 93 Nasal Cannula 2.0 99.0 Weight Weight [ ] I.O. Intake and Output Intake and Output 02/19/17 07:00 Intake Total 600 ml Output Total 0 ml Balance 600 ml Intake Oral 600 ml Output Urine Total 0 ml Labs Labs Laboratory Tests Test 02/18/17 11:41 02/18/17 17:35 02/18/17 20:56 02/19/17 07:30 Glucose (Fingerstick) 124 mg/dL (70-99) 104 mg/dL (70-99) 104 mg/dL (70-99) 108 mg/dL (70-99) Test 02/19/17 09:05 02/19/17 10:27 Sodium Level 141 mmol/L (136-145) Potassium Level 4.1 mmol/L (3.5-5.1) Chloride Level 104 mmol/L (98-107) Carbon Dioxide Level 32 mmol/L (21-32) Anion Gap 5 (6-14) Blood Urea Nitrogen 23 mg/dL (7-20) Creatinine 3.3 mg/dL (0.6-1.0) Estimated GFR (Cockcroft-Gault) 15.0 Glucose Level 116 mg/dL (70-99) Calcium Level 8.6 mg/dL (8.5-10.1) Glucose (Fingerstick) 144 mg/dL (70-99) Review of Systems Constitutional: yes: alert, oriented Ears/Nose/Throat: Yes: no symptom reported Eyes: Yes: no symptom reported Pulmonary: Yes dyspnea Cardiovascular: Yes no symptom reported Gastrointestional: Yes: constipation Musculoskeletal: Yes: joint pain, muscle stiffness Skin: Yes lesions Endocrine: Yes: no symptom reported Physical Exam General Appearance: no apparent distress Skin: warm Respiratory: bilateral CTA Abdomen: soft, bowel sounds present Neurology: alert, oriented Musculoskeletal: Other Assessment Assessment IMP HYPERVOLEMIA-BETTER ANEMIA ESRD GOUT DM II PLAN HD TODAY UF ABOUT 4 TO 5 LITERS RHEUM EVAL AND TX CONT ARANESP SARA RUIZ MD February 19, 2017 11:05
[2017-02-19] MEDS ORDERED: IV NORMAL SALINE 1000ML BAG 1,000 ML IV PRN ×2 (12:09)
[2017-02-19] MEDS ORDERED: DIALYSIS PATIENT. MC PRN (12:15)
[2017-02-19] MEDS ORDERED: ALBUMIN HUMAN 25% 200 ML IV PRN (12:15)
[2017-02-19 19:25] VITALS: BP 105/61
[2017-02-19 19:53] VITALS: BP 107/63
[2017-02-19] MEDS: ATORVASTATIN CALCIUM 40 MG TABLET. PO SCH (21:04)
[2017-02-19 23:00] VITALS: BP 106/61
[2017-02-20 03:25] VITALS: BP 83/45
[2017-02-20 05:00] VITALS: BP 106/72
[2017-02-20 07:00] VITALS: BP 101/66
[2017-02-20] MEDS: INSULIN ASPART 300 UNITS/3 ML INSULN.PEN SQ SCH ×2 (07:30)
[2017-02-20 08:00] VITALS: BP 101/66
[2017-02-20] MEDS: CARVEDILOL 3.125 MG TABLET. PO SCH (08:00)
[2017-02-20] MEDS: ASPIRIN ENTERIC COATED 81 MG TABLET.DR. PO SCH (09:00)
[2017-02-20] MEDS: fentaNYL 50MCG/HR PATCH 1 PATCH PATCH.TD72 TD SCH (09:08)
[2017-02-20] MEDS: MAGNESIUM OXIDE 400 MG TABLET PO SCH (09:08)
[2017-02-20] MEDS: ASCORBIC ACID 500 MG TABLET PO SCH (09:09)
[2017-02-20] MEDS: VENLAFAXINE XR 37.5 MG CAP.ER.24H. PO SCH (09:09)
[2017-02-20] MEDS: METOCLOPRAMIDE 10 MG TABLET. PO SCH ×2 (09:09→12:09)
[2017-02-20] MEDS: APIXABAN 5 MG TABLET. PO SCH (09:09)
[2017-02-20] MEDS: methylPREDNISolone 4 MG TABLET. PO SCH (09:09)
[2017-02-20] MEDS: PANTOPRAZOLE 40 MG TABLET.DR. PO SCH (09:09)
--- NOTE | 2017-02-20 09:11 | PDOC ---
PROGRESS NOTES Subjective Subjective SEEN IN FOLLOW UP OF ESRD Objective Objective Vital Signs Date Time Temp Pulse Resp B/P (MAP) Pulse Ox O2 Delivery O2 Flow Rate FiO2 02/20/17 05:00 106/72 (83) 02/20/17 03:25 98.0 72 13 96 Nasal Cannula 2.0 98.0 Intake and Output 02/20/17 07:00 Intake Total 700 ml Output Total 0 ml Balance 700 ml Intake Oral 700 ml Output Urine Total 0 ml Physical Exam Abdomen: Normal bowel sounds, Soft, No tenderness, No hepatosplenomegaly, No masses Heart: Regular rate, Normal S1, Normal S2, No murmurs, Gallops Extremities: No clubbing, No cyanosis, No edema, Normal pulses, No tenderness/ swelling General: Alert, Oriented X3, Cooperative, No acute distress Lungs: Clear to auscultation, Normal air movement Diagnosis RENAL FAILURE: ESRD Assessment Assessment Problems Medical Problems: (1) Chest pain Status: Acute (2) Chronic kidney disease, stage IV (severe) Status: Acute (3) DM (diabetes mellitus) Status: Acute (4) Lymphedema of both lower extremities Status: Acute Plan Plan of Care FOR DIALYSIS WEDNESDAY. CONT EVAL OF CHEST PAIN Comment Review of Relevant I have reviewed the following items melvi (where applicable) has been applied. Labs Laboratory Tests Test 02/18/17 11:41 02/18/17 17:35 02/18/17 20:56 02/19/17 07:30 Glucose (Fingerstick) 124 mg/dL (70-99) 104 mg/dL (70-99) 104 mg/dL (70-99) 108 mg/dL (70-99) Test 02/19/17 09:05 02/19/17 10:27 02/19/17 16:56 02/19/17 21:02 Sodium Level 141 mmol/L (136-145) Potassium Level 4.1 mmol/L (3.5-5.1) Chloride Level 104 mmol/L (98-107) Carbon Dioxide Level 32 mmol/L (21-32) Anion Gap 5 (6-14) Blood Urea Nitrogen 23 mg/dL (7-20) Creatinine 3.3 mg/dL (0.6-1.0) Estimated GFR (Cockcroft-Gault) 15.0 Glucose Level 116 mg/dL (70-99) Calcium Level 8.6 mg/dL (8.5-10.1) Glucose (Fingerstick) 144 mg/dL (70-99) 167 mg/dL (70-99) 150 mg/dL (70-99) Test 02/20/17 08:07 Glucose (Fingerstick) 96 mg/dL (70-99) Laboratory Tests Test 02/19/17 10:27 02/19/17 16:56 02/19/17 21:02 02/20/17 08:07 Glucose (Fingerstick) 144 mg/dL (70-99) 167 mg/dL (70-99) 150 mg/dL (70-99) 96 mg/dL (70-99) Medications Current Medications Lorazepam (Ativan) 1 mg 1X ONCE IV Last administered on 02/17/17 07:32; Start 02/17/17 at 07:30; Stop 02/17/17 at 07:31; Status DC Nitroglycerin (Nitrostat) 0.4 mg PRN Q5MIN PRN SL CP RATING > 1/10 Last administered on 02/17/17 07:31; Start 02/17/17 at 07:30; Stop 02/17/17 at 09:04 ; Status DC Fentanyl Citrate (Fentanyl 2ml Vial) 50 mcg PRN Q15MIN PRN IV PAIN GREATER THAN 3/10 Last administered on 02/17/17 07:32; Start 02/17/17 at 07:30; Stop at 09:04; Status DC Sodium Chloride (Normal Saline Flush) 10 ml QSHIFT PRN IV AFTER MEDS AND BLOOD DRAWS Last administered on 02/17/17 07:32; Start 02/17/17 at 07:30 Ondansetron HCl (Zofran) 4 mg PRN Q8HRS PRN IV NAUSEA/VOMITING; Start 02/17/17 at 08:15; Stop 02/17/17 at 09:04; Status DC Fentanyl Citrate (Fentanyl 2ml Vial) 50 mcg PRN Q1HR PRN IV PAIN; Start at 08:15; Stop 02/17/17 at 09:04; Status DC Nitroglycerin (Nitrostat) 0.4 mg PRN Q5MIN PRN SL CP RATING > 1/10; Start 02/17 at 09:00 Ondansetron HCl (Zofran) 4 mg PRN Q8HRS PRN IV NAUSEA/VOMITING; Start 02/17/17 at 09:00 Fentanyl (Duragesic 50mcg/ Hr Patch) 1 patch Q3DAYS TD Last administered on 09:56; Start 02/17/17 at 09:00 Hydromorphone HCl (Dilaudid) 0.2 mg PRN Q6HRS PRN IVP PAIN; Start 02/17/17 at 09:00; Stop 02/17/17 at 09:32; Status DC Acetaminophen (Tylenol) 650 mg PRN Q6HRS PRN PO MILD PAIN / TEMP Last administered on 02/19/17 18:36; Start 02/17/17 at 09:15 Apixaban (Eliquis) 5 mg BID PO Last administered on 02/19/17 21:04; Start 07/27 at 10:00 Ascorbic Acid (Vitamin C) 500 mg DAILY PO Last administered on 02/19/17 09:38 ; Start 02/17/17 at 10:00 Aspirin (Ecotrin) 81 mg DAILY PO Last administered on 02/19/17 09:38; Start at 10:00 Atorvastatin Calcium (Lipitor) 40 mg HS PO Last administered on 02/19/17 21:04 ; Start 02/17/17 at 21:00 Calcium Carbonate/ Glycine (Tums) 500 mg PRN AFTMEALHC PRN PO INDIGESTION Last administered on 02/18/17 08:54; Start 02/17/17 at 09:15 Carvedilol (Coreg) 3.125 mg BIDWMEALS PO ; Start 02/17/17 at 09:30 Colestipol HCl (Colestid) 1 gm BID@10,22 PO Last administered on 02/19/17 21: 04; Start 02/17/17 at 10:00 Darbepoetin Bacilio (Aranesp) 60 mcg We SQ ; Start 02/17/17 at 21:00; Status Cancel Insulin Aspart (Novolog) 12 units TIDAC SQ Last administered on 02/19/17 17:35 ; Start 02/17/17 at 11:30 Insulin Detemir (Levemir) 24 units BID SQ Last administered on 02/19/17 21:14 ; Start 02/17/17 at 21:00 Albuterol/ Ipratropium (Duoneb) 3 ml RTQID NEB Last administered on 02/17/17 12:16; Start 02/17/17 at 12:00; Stop 02/17/17 at 12:27; Status DC Magnesium Hydroxide (Milk Of Magnesia) 2,400 mg PRN DAILY PRN PO CONSTIPATION; Start 02/17/17 at 09:15 Magnesium Oxide (Magnesium Oxide) 400 mg TID PO Last administered on 02/19/17 21:04; Start 02/17/17 at 10:00 Metoclopramide HCl (Reglan) 5 mg TIDAC PO Last administered on 02/19/17 17:36 ; Start 02/17/17 at 11:30 Nystatin (Nystop) 1 bossman BID TP Last administered on 02/19/17 21:04; Start 07/27 at 10:00 Pantoprazole Sodium (Protonix) 40 mg DAILYAC PO Last administered on 02/19/17 09:38; Start 02/17/17 at 11:30 Insulin Aspart (Novolog) TIDAC SQ Last administered on 02/19/17 17:37; Start 02/17/17 at 11:30 Hydromorphone HCl (Dilaudid) 2 mg PRN Q6HRS PRN IVP PAIN Last administered on 01:38; Start 02/17/17 at 09:45; Stop 02/18/17 at 08:24; Status DC Darbepoetin Bacilio (Aranesp) 60 mcg We SQ Last administered on 02/17/17 21:23; Start 02/17/17 at 21:00 Sodium Chloride 1,000 ml @ 1,000 mls/hr Q1H PRN IV hypotension; Start 02/17/17 at 11:49; Stop 02/17/17 at 17:48; Status DC Albumin Human 200 ml @ 200 mls/hr 1X PRN PRN IV Hypotension; Start 02/17/17 at 12:00; Stop 02/17/17 at 17:59; Status DC Sodium Chloride (Normal Saline Flush) 10 ml 1X PRN PRN IV AP catheter pack; Start 02/17/17 at 12:00; Stop 02/18/17 at 11:59; Status DC Sodium Chloride (Normal Saline Flush) 10 ml 1X PRN PRN IV [employer]GER catheter pack; Start 02/17/17 at 12:00; Stop 02/18/17 at 11:59; Status DC Sodium Chloride 1,000 ml @ 400 mls/hr Q2H30M PRN IV PATENCY; Start 02/17/17 at 11:49; Stop 02/18/17 at 02:07; Status DC Info (PHARMACY MONITORING -- do not chart) 1 each PRN DAILY PRN MC SEE COMMENTS ; Start 02/17/17 at 12:00; Stop 02/20/17 at 08:07; Status DC Albuterol Sulfate (Ventolin Neb Soln) 2.5 mg PRN Q2HRS PRN NEB SHORTNESS OF BREATH; Start 02/17/17 at 12:45 Methylprednisolone (Medrol) 4 mg DAILY PO Last administered on 02/19/17 09:38 ; Start 02/17/17 at 17:00 Venlafaxine HCl (Effexor Xr) 37.5 mg DAILY PO Last administered on 02/19/17 09 :38; Start 02/18/17 at 09:00 Hydromorphone HCl (Dilaudid) 2 mg PRN Q6HRS PRN PO PAIN Last administered on 23:11; Start 02/18/17 at 08:30 Lidocaine HCl 20 ml STK-MED ONCE .ROUTE ; Start 02/18/17 at 12:10; Stop at 12:11; Status DC Heparin Sodium/ Sodium Chloride 1,000 ml @ As Directed STK-MED ONCE .ROUTE ; Start 02/18/17 at 12:10; Stop 02/18/17 at 12:11; Status DC Iohexol (Omnipaque 300 Mg/ml) 100 ml STK-MED ONCE .ROUTE ; Start 02/18/17 at 12: 10; Stop 02/18/17 at 12:11; Status DC Nitroglycerin (Nitroglycerin) 200 mcg STK-MED ONCE .ROUTE ; Start 02/18/17 at 12 :28; Stop 02/18/17 at 12:29; Status DC Verapamil HCl (Verapamil) 5 mg STK-MED ONCE .ROUTE ; Start 02/18/17 at 12:28; Stop 02/18/17 at 12:29; Status DC Midazolam HCl (Versed) 2 mg STK-MED ONCE .ROUTE ; Start 02/18/17 at 12:28; Stop 02/18/17 at 12:29; Status DC Fentanyl Citrate (Fentanyl 2ml Vial) 100 mcg STK-MED ONCE .ROUTE ; Start at 12:28; Stop 02/18/17 at 12:29; Status DC Heparin Sodium (Porcine) (Heparin Sodium) 10,000 unit STK-MED ONCE .ROUTE ; Start 02/18/17 at 12:28; Stop 02/18/17 at 12:29; Status DC Nitroglycerin (Nitroglycerin) 200 mcg 1X ONCE IART Last administered on 13:20; Start 02/18/17 at 12:30; Stop 02/18/17 at 13:13; Status DC Verapamil HCl (Verapamil) 2.5 mg 1X ONCE IART Last administered on 02/18/17 13:21; Start 02/18/17 at 12:30; Stop 02/18/17 at 13:13; Status DC Heparin Sodium (Porcine) (Heparin Sodium) 2,500 unit 1X ONCE IART Last administered on 02/18/17 13:26; Start 02/18/17 at 12:30; Stop 02/18/17 at 13:13 ; Status DC Heparin Sodium/ Sodium Chloride 1,000 unit 1X ONCE IART Last administered on 13:19; Start 02/18/17 at 12:30; Stop 02/18/17 at 13:13; Status DC Heparin Sodium/ Sodium Chloride 1,000 unit 1X ONCE IART Last administered on 13:19; Start 02/18/17 at 12:30; Stop 02/18/17 at 13:13; Status DC Midazolam HCl (Versed) 2 mg 1X ONCE IV Last administered on 02/18/17 13:20; Start 02/18/17 at 12:30; Stop 02/18/17 at 13:13; Status DC Fentanyl Citrate (Fentanyl 2ml Vial) 100 mcg 1X ONCE IV Last administered on 13:20; Start 02/18/17 at 12:30; Stop 02/18/17 at 13:13; Status DC Iohexol (Omnipaque 300 Mg/ml) 100 ml 1X ONCE IART Last administered on 13:19; Start 02/18/17 at 12:30; Stop 02/18/17 at 13:13; Status DC Lidocaine HCl 20 ml 1X ONCE IJ Last administered on 02/18/17 13:19; Start 08/27 at 12:30; Stop 02/18/17 at 13:13; Status DC Info (Do NOT chart on this entry -- for MONITORING) 1 each PRN DAILY PRN MC SEE COMMENTS; Start 02/18/17 at 13:30; Stop 02/20/17 at 13:29 Fentanyl Citrate (Fentanyl 2ml Vial) 50 mcg PRN Q3HRS PRN IV PAIN Last administered on 02/18/17 14:06; Start 02/18/17 at 14:00; Stop 02/19/17 at 05:57 ; Status DC Info (Anti-Coagulation Monitoring By Pharmacy) 1 each PRN DAILY PRN MC SEE COMMENTS; Start 02/18/17 at 16:15 Sodium Chloride 1,000 ml @ 1,000 mls/hr Q1H PRN IV hypotension; Start 02/19/17 at 12:09; Stop 02/19/17 at 18:08; Status DC Albumin Human 200 ml @ 200 mls/hr 1X PRN PRN IV Hypotension; Start 02/19/17 at 12:15; Stop 02/19/17 at 18:14; Status DC Sodium Chloride 1,000 ml @ 400 mls/hr Q2H30M PRN IV PATENCY; Start 02/19/17 at 12:09; Stop 02/20/17 at 00:08; Status DC Info (PHARMACY MONITORING -- do not chart) 1 each PRN DAILY PRN MC SEE COMMENTS ; Start 02/19/17 at 12:15 Active Scripts Active Medrol (Methylprednisolone) 4 Mg Tab.ds.pk 1 Pkg PO UD Effexor Xr (Venlafaxine Hcl) 37.5 Mg Cap.er.24h 30 Cap PO DAILY Nystop (Nystatin) 60 Gm Powder 1 Bossman TP BID Levemir Flextouch (Insulin Detemir) 100 Unit/1 Ml Insuln.pen 24 Units SQ BID [Hydromorphone Hcl] 2 MG Tablet 2 Mg PO PRN Q6HRS PRN Novolog Flexpen (Insulin Aspart) 100 Unit/1 Ml Insuln.pen 12 Unit SQ TIDAC Tylenol (Acetaminophen) 325 Mg Tablet 650 Mg PO PRN Q6HRS PRN Metoclopramide Hcl 10 Mg Tablet 5 Mg PO TIDAC Aranesp Syringe (Darbepoetin Bacilio In Polysorbat) 60 Mcg/0.3 Ml Disp.syrin 60 Mcg SQ WEEKLYHS Colestid (Colestipol Hcl) 1 Gm Tablet 1 Gm PO BID@10,22 Calcium Carbonate 200 Mg Tab.chew 500 Mg PO PRN AFTMEALHC PRN Vitamin C (Ascorbic Acid) 500 Mg Tablet 500 Mg PO DAILY Eliquis (Apixaban) 5 Mg Tablet 5 Mg PO BID FENTANYL 50mcg/hr (Fentanyl) 1 Each Patch.td72 1 Patch TD Q3DAYS Coreg (Carvedilol) 3.125 Mg Tablet 1 Tab PO BID Novolog Flexpen (Insulin Aspart) 100 Unit/1 Ml Insuln.pen 0-8 Unit SQ TID AC Zofran Odt (Ondansetron) 4 Mg Tab.rapdis 1 Tab SL PRN Q6HRS PRN Milk Of Magnesia (Magnesium Hydroxide) 400 Mg/5 Ml Oral.susp 2,400 Mg PO PRN DAILY PRN Duoneb 0.5-3(2.5) Mg/3 Ml (Albuterol/Ipratropium) 3 Ml Ampul.neb 3 Ml NEB RTQID Reported Magnesium Oxide 400 Mg Tablet 400 Mg PO TID Aspir 81 (Aspirin) 81 Mg Tablet.dr 81 Mg PO DAILY Nitrostat (Nitroglycerin) 0.4 Mg Tab.subl 0.4 Mg SL PRN Q5MIN PRN Atorvastatin Calcium 40 Mg Tablet 40 Mg PO HS Omeprazole 20 Mg Capsule.dr 20 Mg PO DAILY Vitals/I & O Vital Sign - Last 24 Hours 02/19/17 02/19/17 02/19/17 02/19/17 09:40 10:40 10:58 17:30 Temp 99.0 99.0 Pulse 81 101 Resp 18 18 B/P (MAP) 88/57 (67) 95/57 Pulse Ox 93 O2 Delivery Nasal Cannula Nasal Cannula Nasal Cannula O2 Flow Rate 3.0 2.0 2.0 02/19/17 02/19/17 02/19/17 02/19/17 19:25 19:53 20:00 23:00 Temp 97.4 99.0 97.4 99.0 Pulse 81 76 Resp 14 20 B/P (MAP) 105/61 (76) 107/63 (78) 106/61 (76) Pulse Ox 95 96 O2 Delivery Nasal Cannula Nasal Cannula Nasal Cannula O2 Flow Rate 2.0 3.0 3.0 02/19/17 02/20/17 02/20/17 02/20/17 23:11 00:11 03:25 05:00 Temp 98.0 98.0 Pulse 72 Resp 14 14 13 B/P (MAP) 83/45 (58) 106/72 (83) Pulse Ox 97 96 O2 Delivery Nasal Cannula Nasal Cannula O2 Flow Rate 3.0 2.0 Intake and Output 02/19/17 02/19/17 02/20/17 15:00 23:00 07:00 Intake Total 700 ml Output Total 0 ml 0 ml Balance 700 ml 0 ml RUTHANN CALDERON MD February 20, 2017 09:11
[2017-02-20] MEDS: HYDROmorphone 2 MG TABLET PO PRN (09:24)
[2017-02-20] MEDS: INSULIN DETEMIR 300 UNITS/3 ML INSULN.PEN. SQ SCH (09:31)
[2017-02-20] MEDS: NYSTATIN TOPICAL POWDER 15GM BOTTLE. TP SCH (09:32)
[2017-02-20] MEDS: COLESTIPOL HCL 1 GM TABLET PO SCH (10:22)
[2017-03-19] MEDS ORDERED: HYDR4TAB13 PO (09:06)
== END 2017-02-20 17:38 | disposition home health service (06) | DRG 286 ==
LOC: ER 07:11 → 2 NORTH 08:01
PROVIDERS: ADMIT Internal Medicine; ATTEND Internal Medicine
PROC: 5A1D60Z (ICD-10-PCS; 2017-02-17)
PROC: 4A023N7 Measurement of Cardiac Sampling and Pressure, Left Heart, Percutaneous Approach (ICD-10-PCS; principal; 2017-02-18)
PROC: B2111ZZ Fluoroscopy of Multiple Coronary Arteries using Low Osmolar Contrast (ICD-10-PCS; 2017-02-18)
PROC: B2151ZZ Fluoroscopy of Left Heart using Low Osmolar Contrast (ICD-10-PCS; 2017-02-18)
PROC: 5A09357 Assistance with Respiratory Ventilation, Less than 24 Consecutive Hours, Continuous Positive Airway Pressure (ICD-10-PCS; 2017-02-18)
DX: I50.23 Acute on chronic systolic (congestive) heart failure (principal); N18.6 End stage renal disease; E43 Unspecified severe protein-calorie malnutrition; I13.2 Hypertensive heart and chronic kidney disease with heart failure and with stage 5 chronic kidney disease, or end stage renal disease; Z68.41 Body mass index [BMI] 40.0-44.9, adult; E11.22 Type 2 diabetes mellitus with diabetic chronic kidney disease; E11.42 Type 2 diabetes mellitus with diabetic polyneuropathy; E66.01 Morbid (severe) obesity due to excess calories; E78.00 Pure hypercholesterolemia, unspecified; E78.5 Hyperlipidemia, unspecified; F32.9 Major depressive disorder, single episode, unspecified; F41.9 Anxiety disorder, unspecified; G47.33 Obstructive sleep apnea (adult) (pediatric); G89.29 Other chronic pain; I07.1 Rheumatic tricuspid insufficiency; I25.10 Atherosclerotic heart disease of native coronary artery without angina pectoris; I25.5 Ischemic cardiomyopathy; E11.51 Type 2 diabetes mellitus with diabetic peripheral angiopathy without gangrene; K21.9 Gastro-esophageal reflux disease without esophagitis; J44.9 Chronic obstructive pulmonary disease, unspecified; M19.90 Unspecified osteoarthritis, unspecified site; M10.9 Gout, unspecified; M06.4 Inflammatory polyarthropathy; I89.0 Lymphedema, not elsewhere classified; S91.302A Unspecified open wound, left foot, initial encounter; S91.301A Unspecified open wound, right foot, initial encounter; D63.1 Anemia in chronic kidney disease; I25.2 Old myocardial infarction; Z82.49 Family history of ischemic heart disease and other diseases of the circulatory system; Z83.3 Family history of diabetes mellitus; Z86.718 Personal history of other venous thrombosis and embolism; Z86.73 Personal history of transient ischemic attack (TIA), and cerebral infarction without residual deficits; Z91.19 Patient's noncompliance with other medical treatment and regimen; Z89.429 Acquired absence of other toe(s), unspecified side; Z95.5 Presence of coronary angioplasty implant and graft; Z99.81 Dependence on supplemental oxygen; Z99.2 Dependence on renal dialysis; Z86.711 Personal history of pulmonary embolism; Z88.0 Allergy status to penicillin; Z88.2 Allergy status to sulfonamides; Z88.1 Allergy status to other antibiotic agents; Z88.5 Allergy status to narcotic agent; Z88.8 Allergy status to other drugs, medicaments and biological substances; R07.89 Other chest pain
CPT/HCPCS: 36415; 71010; 80048; 81001; 82553; 82962; 83690; 83735; 83880; 84443; 84484; 84550; 85027; 93005; 93458; 94250; 94640; 94760; 96374; 96375; C1769; C1892; G0379; J0881; J1170; J1815; J2060; J2250; J3010; J3490; J7509; J7620; J8597; Q9967; 99285-25

== ENCOUNTER 2017-02-25 12:52 | Emergency (ER) | payer MEDICARE, MEDICAID ==
[~2017-02-25] VITALS: Ht 170.2 cm; Wt 122.0 kg
[~2017-02-25 12:52] MED LIST changes: +METH4TAB2 PO; +VENL37.5 PO
[2017-02-25] MEDS ORDERED: KETOROLAC TROMETHAMINE 60 MG/2 ML INJ. IM ONE (13:00)
[2017-02-25 13:03] VITALS: BP 109/77
--- NOTE | 2017-02-25 13:20 | PHYS DOC ---
Past Medical History Past Medical History: COPD, CVA, Diabetes-Type II, DVT, GERD, High Cholesterol , Hypertension, NM, Renal Disease, Other Additional Past Medical Histor: PE, CHRONIC BACK PAIN, ENLARGED LIVER Past Surgical History: Angioplasty, Cholecystectomy, , Other Additional Past Surgical Histo: CARDIAC STENT, VENA CAVA FILTER, HERNIA SURG, 4TH & 5TH RIGHT TOE AMP Alcohol Use: None Drug Use: None Adult General Chief Complaint Chief Complaint: CONSTIPATION HPI HPI 46-year-old female who has not had a bowel movement for approximately 6 days. She states she is now having significant generalized abdominal pain and inability to pass stool. She states she did have a small BM with hard stool and some blood noted. Patient did have rectal pain with stool. Her home health nurse attempted to manually disimpact without relief. She denies any nausea or vomiting. Patient is nontoxic and afebrile in appearance upon arrival. Patient is on fentanyl patch and takes oral Dilaudid. Patient did miss her dialysis yesterday and was scheduled to take her dialysis today but has yet to obtain it. She denies any fever or chills. She denies any severe chest pain or shortness of breath. Patient was recently admitted for chest pain that has resolved. She is on her usual O2 regimen that she is on at home Review of Systems Review of Systems Constitutional: Denies fever or chills [] Eyes: Denies change in visual acuity, redness, or eye pain [] HENT: Denies nasal congestion or sore throat [] Respiratory: Denies cough or shortness of breath [] Cardiovascular: No additional information not addressed in HPI [] GI: Has abdominal pain, denies nausea, denies vomiting, denies bloody stools or diarrhea [] : Denies dysuria or hematuria [] Musculoskeletal: Denies back pain or joint pain [] Integument: Denies rash or skin lesions [] Neurologic: Denies headache, focal weakness or sensory changes [] Endocrine: Denies polyuria or polydipsia [] Current Medications Current Medications Current Medications Medications (Trade) Dose Ordered Sig/Ant Start Time Stop Time Status Last Admin Dose Admin Ketorolac Tromethamine (Toradol Im) 60 mg 1X ONCE 02/25/17 13:00 02/25/17 13:01 UNV Allergies Allergies Allergies Coded Allergies Type Severity Reaction Last Updated Verified Penicillins Allergy Severe causes swelling of throat 01/15/17 Yes Sulfa (Sulfonamide Antibiotics) Allergy Severe causes throat to swell 01/15/17 Yes amoxicillin Allergy Severe causes swelling of throat 01/15/17 Yes clarithromycin Allergy Severe causes throat to swell 01/15/17 Yes codeine Allergy Severe "closed up my throat and itching" 01/31/17 Yes hydrocodone Allergy Severe "closes up my throat and itching" 01/31/17 Yes silver sulfadiazine Allergy Severe Rash 01/15/17 Yes oxycodone Allergy Intermediate 01/15/17 Yes tramadol Allergy Intermediate Nausea and Vomiting 01/15/17 Yes I S O L A T I O N *CONTACT* Allergy Unknown 01/15/17 Yes Physical Exam Physical Exam Constitutional: Well developed, well nourished, no acute distress, non-toxic appearance. [] HENT: Normocephalic, atraumatic, bilateral external ears normal, oropharynx moist, no oral exudates, nose normal. [] Eyes: PERRLA, EOMI, conjunctiva normal, no discharge. [] Neck: Normal range of motion, no tenderness, supple, no stridor. [] Cardiovascular:Heart rate regular rhythm, no murmur [] Lungs & Thorax: Bilateral breath sounds clear to auscultation [] Abdomen: Bowel sounds normal, soft, generalized abdominal tenderness, no masses , no pulsatile masses. [] Skin: Warm, dry, no erythema, no rash. [] Back: No tenderness, no CVA tenderness. [] Extremities: No tenderness, no cyanosis, no clubbing, ROM intact, no edema. [] Neurologic: Alert and oriented X 3, normal motor function, normal sensory function, no focal deficits noted. [] Psychologic: Affect normal, judgement normal, mood normal. [] Current Patient Data Vital Signs Vital Signs Date Time Temp Pulse Resp B/P (MAP) Pulse Ox O2 Delivery O2 Flow Rate FiO2 02/25/17 13:03 97.8 100 16 109/77 (88) 96 Nasal Cannula 2.0 97.8 Lab Values Laboratory Tests Test 02/25/17 13:20 Sodium Level 142 mmol/L (136-145) Potassium Level 4.4 mmol/L (3.5-5.1) Chloride Level 103 mmol/L (98-107) Carbon Dioxide Level 29 mmol/L (21-32) Anion Gap 10 (6-14) Blood Urea Nitrogen 46 mg/dL (7-20) H Creatinine 4.2 mg/dL (0.6-1.0) H Estimated GFR (Cockcroft-Gault) 11.3 Glucose Level 194 mg/dL (70-99) H Calcium Level 9.0 mg/dL (8.5-10.1) Laboratory Tests 02/25/17 13:20 EKG EKG [] Radiology/Procedures Radiology/Procedures [] Course & Med Decision Making Course & Med Decision Making Pertinent Labs and Imaging studies reviewed. (See chart for details) This 46-year-old female with generalized abdominal pain and inability to pass a normal bowel movement for the last 6 days will have a warm milk of molasses enema. A BMP will be checked to assess for any need for emergent dialysis. She' ll be reassessed after enema treatment. On my reassessment, the patient has had a successful bowel movement with milk and molasses enema and feels significant improvement of her symptoms. She'll be discharged and told to receive dialysis tomorrow. Dragon Disclaimer Dragon Disclaimer This electronic medical record was generated, in whole or in part, using a voice recognition dictation system. Departure Departure Impression: Primary Impression: Constipation Disposition: 01 HOME, SELF-CARE Admitting Physician: Other Condition: STABLE Referrals: CHELE SINGH MD (PCP) Patient Instructions: Constipation, Adult, [id number] Additional Instructions: Please follow up with your primary doctor in the next 2-3 days for constipation. Take your miralax twice daily. Return to the ER if you develop any nausea or vomiting or develop any worsening of your abdominal pain. NENO BECK DO February 25, 2017 13:20
[2017-02-25 13:37] LABS: CREATININE 4.2 mg/dL (0.6-1.0); GFR 11.3; POTASSIUM 4.4 mmol/L (3.5-5.1)
== END 2017-02-25 16:05 | disposition home or self-care (01) ==
LOC: ER 12:52
DX: K59.00 Constipation, unspecified (principal); J44.9 Chronic obstructive pulmonary disease, unspecified; K21.9 Gastro-esophageal reflux disease without esophagitis; E78.00 Pure hypercholesterolemia, unspecified; G89.29 Other chronic pain; I25.2 Old myocardial infarction; E11.22 Type 2 diabetes mellitus with diabetic chronic kidney disease; N18.9 Chronic kidney disease, unspecified; I12.9 Hypertensive chronic kidney disease with stage 1 through stage 4 chronic kidney disease, or unspecified chronic kidney disease; Z86.73 Personal history of transient ischemic attack (TIA), and cerebral infarction without residual deficits; Z90.49 Acquired absence of other specified parts of digestive tract; Z95.5 Presence of coronary angioplasty implant and graft; Z88.0 Allergy status to penicillin; Z86.718 Personal history of other venous thrombosis and embolism; Z86.711 Personal history of pulmonary embolism; Z88.1 Allergy status to other antibiotic agents; Z88.5 Allergy status to narcotic agent; Z88.6 Allergy status to analgesic agent; Z91.041 Radiographic dye allergy status; Z99.2 Dependence on renal dialysis
CPT/HCPCS: 36415; 80048; 99284

== ENCOUNTER → 2017-03-04 | Outpatient (CLI) | payer MEDICARE, MEDICAID ==
[2017-02-25 13:03] VITALS: BP 109/77
[~2017-03-04] MED LIST changes: -CLOP75TA27 PO; +CLOP75TA57 PO; +DOCU100C28 PO; -DOCU100C5 PO; -HYDR2TAB13 PO; +HYDR2TAB31 PO; +HYDR4TAB45 PO; +INSU100I13 SQ; +INSU100V31 SQ; -MAGN400O4 PO; +MAGN400O7 PO
== END | disposition home or self-care (01) ==
LOC: PMGWOUND 09:50
PROVIDERS: ATTEND Emergency Medicine Undersea and Hyperbaric Medicine
DX: E11.621 Type 2 diabetes mellitus with foot ulcer (principal); L97.421 Non-pressure chronic ulcer of left heel and midfoot limited to breakdown of skin; E11.51 Type 2 diabetes mellitus with diabetic peripheral angiopathy without gangrene; E11.40 Type 2 diabetes mellitus with diabetic neuropathy, unspecified; I25.2 Old myocardial infarction; I25.10 Atherosclerotic heart disease of native coronary artery without angina pectoris; Z68.42 Body mass index [BMI] 45.0-49.9, adult; E11.22 Type 2 diabetes mellitus with diabetic chronic kidney disease; I13.2 Hypertensive heart and chronic kidney disease with heart failure and with stage 5 chronic kidney disease, or end stage renal disease; N18.6 End stage renal disease; I50.22 Chronic systolic (congestive) heart failure; J44.9 Chronic obstructive pulmonary disease, unspecified; F41.9 Anxiety disorder, unspecified; F32.9 Major depressive disorder, single episode, unspecified; K21.9 Gastro-esophageal reflux disease without esophagitis; E78.00 Pure hypercholesterolemia, unspecified; E78.5 Hyperlipidemia, unspecified; E11.69 Type 2 diabetes mellitus with other specified complication; M86.9 Osteomyelitis, unspecified; E66.9 Obesity, unspecified; Z86.711 Personal history of pulmonary embolism; Z95.1 Presence of aortocoronary bypass graft; Z87.891 Personal history of nicotine dependence; Z86.718 Personal history of other venous thrombosis and embolism; Z99.2 Dependence on renal dialysis
CPT/HCPCS: 99214

== ENCOUNTER 2017-03-18 15:31 | Observation (INO) | payer MEDICARE, MEDICAID ==
[~2017-03-18] VITALS: Ht 170.2 cm; Wt 123.6 kg
[~2017-03-18 15:31] MED LIST changes: -HYDR4TAB45 PO; -INSU100I13 SQ; -INSU100V31 SQ
--- NOTE | 2017-03-18 15:56 | PHYS DOC ---
Past Medical History Past Medical History: COPD, CVA, Diabetes-Type II, DVT, GERD, High Cholesterol , Hypertension, DC, Renal Disease, Other Additional Past Medical Histor: PE, CHRONIC BACK PAIN, ENLARGED LIVER Past Surgical History: Angioplasty, Cholecystectomy, , Other Additional Past Surgical Histo: CARDIAC STENT, VENA CAVA FILTER, HERNIA SURG, 4TH & 5TH RIGHT TOE AMP Alcohol Use: None Drug Use: None Adult General Chief Complaint Chief Complaint: CHEST PAIN HPI HPI Patient is a 46 year old female who presents with chest pain. She states it's a sharp pain is in the left side of her chest and it goes to her left shoulder. She feels short of breath with this. She denies any diaphoresis but does feel nauseated with that she denies any vomiting. She has a history of coronary disease Review of Systems Review of Systems Constitutional: Denies fever or chills [] Eyes: Denies change in visual acuity, redness, or eye pain [] HENT: Denies nasal congestion or sore throat [] Respiratory: Denies cough or shortness of breath [] Cardiovascular: No additional information not addressed in HPI [] GI: Denies abdominal pain, nausea, vomiting, bloody stools or diarrhea [] : Denies dysuria or hematuria [] Musculoskeletal: Denies back pain or joint pain [] Integument: Denies rash or skin lesions [] Neurologic: Denies headache, focal weakness or sensory changes [] Endocrine: Denies polyuria or polydipsia [] Current Medications Current Medications Current Medications Medications (Trade) Dose Ordered Sig/Ant Start Time Stop Time Status Last Admin Dose Admin Fentanyl Citrate (Fentanyl 2ml Vial) 50 mcg PRN Q15MIN PRN 03/18/17 16:30 03/19/17 16:29 03/18/17 16:55 50 MCG Allergies Allergies Allergies Coded Allergies Type Severity Reaction Last Updated Verified Penicillins Allergy Severe causes swelling of throat 01/15/17 Yes Sulfa (Sulfonamide Antibiotics) Allergy Severe causes throat to swell 01/15/17 Yes amoxicillin Allergy Severe causes swelling of throat 01/15/17 Yes clarithromycin Allergy Severe causes throat to swell 01/15/17 Yes codeine Allergy Severe "closed up my throat and itching" 01/31/17 Yes hydrocodone Allergy Severe "closes up my throat and itching" 01/31/17 Yes silver sulfadiazine Allergy Severe Rash 01/15/17 Yes oxycodone Allergy Intermediate 01/15/17 Yes tramadol Allergy Intermediate Nausea and Vomiting 01/15/17 Yes I S O L A T I O N *CONTACT* Allergy Unknown 01/15/17 Yes Physical Exam Physical Exam Constitutional: Well developed, well nourished, no acute distress, non-toxic appearance. [] HENT: Normocephalic, atraumatic, bilateral external ears normal, oropharynx moist, no oral exudates, nose normal. [] Eyes: PERRLA, EOMI, conjunctiva normal, no discharge. [] Neck: Normal range of motion, no tenderness, supple, no stridor. [] Cardiovascular:Heart rate regular rhythm, no murmur [] Lungs & Thorax: Bilateral breath sounds clear to auscultation [] Abdomen: Bowel sounds normal, soft, no tenderness, no masses, no pulsatile masses. [] Skin: Warm, dry, no erythema, no rash. [] Back: No tenderness, no CVA tenderness. [] Extremities: No tenderness, no cyanosis, no clubbing, ROM intact, no edema. [] Neurologic: Alert and oriented X 3, normal motor function, normal sensory function, no focal deficits noted. [] Psychologic: Affect normal, judgement normal, mood normal. [] Current Patient Data Vital Signs Vital Signs Date Time Temp Pulse Resp B/P (MAP) Pulse Ox O2 Delivery O2 Flow Rate FiO2 03/18/17 16:55 22 Nasal Cannula 2.0 03/18/17 16:37 87 111/63 (79) 96 03/18/17 15:41 98.6 98.6 Lab Values Laboratory Tests Test 03/18/17 15:45 White Blood Count 6.6 x10^3/uL (4.0-11.0) Red Blood Count 3.80 x10^6/uL (3.50-5.40) Hemoglobin 10.6 g/dL (12.0-15.5) L Hematocrit 32.9 % (36.0-47.0) L Mean Corpuscular Volume 87 fL (79-100) Mean Corpuscular Hemoglobin 28 pg (25-35) Mean Corpuscular Hemoglobin Concent 32 g/dL (31-37) Red Cell Distribution Width 19.4 % (11.5-14.5) H Platelet Count 194 x10^3/uL (140-400) Neutrophils (%) (Auto) 76 % (31-73) H Lymphocytes (%) (Auto) 17 % (24-48) L Monocytes (%) (Auto) 4 % (0-9) Eosinophils (%) (Auto) 2 % (0-3) Basophils (%) (Auto) 1 % (0-3) Neutrophils # (Auto) 5.0 x10^3uL (1.8-7.7) Lymphocytes # (Auto) 1.1 x10^3/uL (1.0-4.8) Monocytes # (Auto) 0.2 x10^3/uL (0.0-1.1) Eosinophils # (Auto) 0.1 x10^3/uL (0.0-0.7) Basophils # (Auto) 0.1 x10^3/uL (0.0-0.2) Prothrombin Time 15.2 SEC (11.7-14.0) H Prothrombin Time INR 1.3 (0.8-1.1) H Sodium Level 142 mmol/L (136-145) Potassium Level 3.5 mmol/L (3.5-5.1) Chloride Level 104 mmol/L (98-107) Carbon Dioxide Level 32 mmol/L (21-32) Anion Gap 6 (6-14) Blood Urea Nitrogen 13 mg/dL (7-20) Creatinine 2.1 mg/dL (0.6-1.0) H Estimated GFR (Cockcroft-Gault) 25.2 Glucose Level 282 mg/dL (70-99) H Calcium Level 8.4 mg/dL (8.5-10.1) L Total Bilirubin 0.5 mg/dL (0.2-1.0) Direct Bilirubin 0.1 mg/dL (0.0-0.2) Aspartate Amino Transferase (AST) 9 U/L (15-37) L Alanine Aminotransferase (ALT) 10 U/L (14-59) L Alkaline Phosphatase 105 U/L (46-116) Creatine Kinase 42 U/L (26-192) Creatine Kinase MB (Mass) 0.5 ng/mL (0.0-3.6) Creatine Kinase MB Relative Index 1.2 % (0-4) Troponin I Quantitative 0.021 ng/mL (0.000-0.055) DQ-Fnd-T-Type Natriuretic Peptide 5321 pg/mL (0-124) H Total Protein 7.3 g/dL (6.4-8.2) Albumin 2.8 g/dL (3.4-5.0) L Lipase 97 U/L (73-393) Laboratory Tests 03/18/17 15:45 Laboratory Tests 03/18/17 15:45 EKG EKG EKG shows signs rhythm with rate of 90 bpm with prolonged MD of 216 ms, nonspecific intraventricular block noted, left axis deviation, no ST elevations appreciated, QTC 494 ms, EKG is similar to one performed on February 17, 2017, as interpreted by me. Radiology/Procedures Radiology/Procedures [facility] [address] [place] [address] IMAGING REPORT Signed PATIENT: ADRIEL GOOD ACCOUNT: [id number] : 1970 LOCATION: ER AGE: 46 SEX: F EXAM STATUS: REG ER ORD. PHYSICIAN: ALINA LOPEZ MD REASON: chest pain PROCEDURE: PORTABLE CHEST 1V Portable chest, 03/18/2017: History: Chest pain Comparison is made to a study from 02/17/2017. A right-sided dialysis type catheter remains in place extending to the level of the atriocaval junction. The heart is mildly enlarged. The pulmonary vascularity is mildly congested. There is slight basilar interstitial prominence. No pulmonary consolidation is seen. No significant volume of pleural fluid is delineated. IMPRESSION: Mild cardiomegaly with mild vascular congestion and slight interstitial prominence suggesting low-grade congestive heart failure. DICTATED and SIGNED BY: EHSAN WHITE MD DATE: 03/18/17 1637 CC: ALINA LOPEZ MD; DUNIA JOHNSON MD ~ Impressions: Chest Pain Course & Med Decision Making Course & Med Decision Making Pertinent Labs and Imaging studies reviewed. (See chart for details) Chest x-ray, EKG, labs are nonacute. Patient is given a full dose aspirin be admitted to Dr. Johnson with cardiology consultation. Interim orders are written. Patient's agreeable plans in stable condition this time. Dragon Disclaimer Dragon Disclaimer This electronic medical record was generated, in whole or in part, using a voice recognition dictation system. Departure Departure Impression: Primary Impression: Chest pain Disposition: ADMITTED INPATIENT Admitting Physician: Dunia Johnson Condition: STABLE Referrals: DUNIA JOHNSON MD (PCP) ALINA LOPEZ MD Mar 18, 2017 15:56
[2017-03-18 16:06] LABS: BASO # 0.1 x10^3/uL (0.0-0.2); BASO % 1 % (0-3); EOS % 2 % (0-3); HEMATOCRIT 32.9 % (36.0-47.0); HEMOGLOBIN 10.6 g/dL (12.0-15.5); LYMPH # 1.1 x10^3/uL (1.0-4.8); LYMPH % 17 % (24-48); MEAN CORPUSCULAR HEMOGLOBIN 28 pg (25-35); MEAN CORPUSCULAR HGB CONC 32 g/dL (31-37); MEAN CORPUSCULAR VOLUME 87 fL (79-100); MONO % 4 % (0-9); NEUT % 76 % (31-73); PLATELET COUNT 194 x10^3/uL (140-400); RED CELL DISTRIBUTION WIDTH 19.4 % (11.5-14.5); WHITE BLOOD COUNT 6.6 x10^3/uL (4.0-11.0)
[2017-03-18 16:20] LABS: INR 1.3 (0.8-1.1); PROTHROMBIN TIME PATIENT 15.2 SEC (11.7-14.0)
[2017-03-18 16:21] LABS: CALCIUM 8.4 mg/dL (8.5-10.1); CREATININE 2.1 mg/dL (0.6-1.0); GFR 25.2; POTASSIUM 3.5 mmol/L (3.5-5.1)
[2017-03-18 16:27] LABS: ALBUMIN 2.8 g/dL (3.4-5.0); DIRECT BILIRUBIN 0.1 mg/dL (0.0-0.2); TOTAL BILIRUBIN 0.5 mg/dL (0.2-1.0); TOTAL PROTEIN 7.3 g/dL (6.4-8.2)
--- NOTE | 2017-03-18 16:27 | EKG ---
[facility] [address] [place] [address] Test Date: 2017-03-18 Test Time: 15:37:17 Pat Name: ADRIEL GOOD Department: Room: Gender: F Cvt Tech: : 1970 Requested By: ALINA LOPEZ Order Number: [id number] Reading MD: Jess Rosales Measurements Intervals Hale Rate: 90 P: 46 WI: 216 QRS: -71 QRSD: 132 T: 26 QT: 400 QTc: 494 Interpretive Statements SINUS RHYTHM PROLONGED WI INTERVAL ABNORMAL LEFT AXIS DEVIATION NON SPECIFIC INTRAVENTRICULAR BLOCK RVH WITH REPOLARIZATION ABNORMALITY QRS(T) CONTOUR ABNORMALITY CONSISTENT WITH ANTERIOR INFARCT AGE UNDETERMINED CONSISTENT WITH INFERIOR INFARCT PROBABLY OLD ABNORMAL ECG Electronically Signed On 03-20-2017 19:08:04 CDT by Jess Rosales
[2017-03-18] MEDS ORDERED: fentaNYL PF VIAL 100 MCG/2 ML VIAL IV PRN (16:30)
[2017-03-18 16:37] LABS: CKMB MASS 0.5 ng/mL (0.0-3.6)
--- NOTE | 2017-03-18 16:41 | RAD ---
Portable chest, 03/18/2017: History: Chest pain Comparison is made to a study from 02/17/2017. A right-sided dialysis type catheter remains in place extending to the level of the atriocaval junction. The heart is mildly enlarged. The pulmonary vascularity is mildly congested. There is slight basilar interstitial prominence. No pulmonary consolidation is seen. No significant volume of pleural fluid is delineated. IMPRESSION: Mild cardiomegaly with mild vascular congestion and slight interstitial prominence suggesting low-grade congestive heart failure.
[2017-03-18] MEDS ORDERED: ONDANSETRON PF 4 MG/2 ML VIAL. IV PRN (17:15)
[2017-03-18] MEDS ORDERED: NITROGLYCERIN SUBLINGUAL 0.4 MG BOTTLE OF 25. SL PRN (17:15)
[2017-03-18] MEDS ORDERED: ASPIRIN 325 MG TABLET PO ONE (17:30)
[2017-03-18] MEDS: MORPHINE SULFATE 2 MG/ML DISP.SYRIN. IV PRN ×3 (18:35→23:21)
[2017-03-18 19:00] VITALS: BP 102/60
[2017-03-18] MEDS ORDERED: INSU100I13 SQ (20:56)
[2017-03-18] MEDS ORDERED: INSU100C4 SQ (20:56)
[2017-03-18 22:45] VITALS: BP 96/57
[2017-03-19 03:00] VITALS: BP 103/67
[2017-03-19] MEDS: MORPHINE SULFATE 2 MG/ML DISP.SYRIN. IV PRN ×2 (03:51→07:40)
[2017-03-19 05:10] LABS: BASO # 0.1 x10^3/uL (0.0-0.2); BASO % 1 % (0-3); EOS % 3 % (0-3); HEMATOCRIT 29.7 % (36.0-47.0); HEMOGLOBIN 9.5 g/dL (12.0-15.5); LYMPH # 1.2 x10^3/uL (1.0-4.8); LYMPH % 15 % (24-48); MEAN CORPUSCULAR HEMOGLOBIN 28 pg (25-35); MEAN CORPUSCULAR HGB CONC 32 g/dL (31-37); MEAN CORPUSCULAR VOLUME 86 fL (79-100); MONO % 4 % (0-9); NEUT % 78 % (31-73); PLATELET COUNT 195 x10^3/uL (140-400); RED BLOOD COUNT 3.44 x10^6/uL (3.50-5.40); RED CELL DISTRIBUTION WIDTH 19.9 % (11.5-14.5); WHITE BLOOD COUNT 7.9 x10^3/uL (4.0-11.0)
[2017-03-19 05:35] LABS: CALCIUM 8.1 mg/dL (8.5-10.1); CREATININE 2.4 mg/dL (0.6-1.0); GFR 21.6; POTASSIUM 3.9 mmol/L (3.5-5.1)
[2017-03-19 07:00] VITALS: BP 99/65
[2017-03-19] MEDS ORDERED: CALCIUM CARBONATE 500 MG TAB.CHEW PO PRN (08:30)
[2017-03-19] MEDS ORDERED: ACETAMINOPHEN 325 MG TABLET. PO PRN (08:30)
[2017-03-19] MEDS ORDERED: MAGNESIUM HYDROXIDE 2,400 MG/30 ML ORAL.SUSP. PO PRN (08:30)
[2017-03-19] MEDS ORDERED: NITROGLYCERIN SUBLINGUAL 0.4 MG BOTTLE OF 25. SL PRN ×2 (08:30)
[2017-03-19] MEDS ORDERED: IV NORMAL SALINE 1000ML BAG 1,000 ML IV PRN (08:46)
--- NOTE | 2017-03-19 08:49 | PDOC ---
Provider Note Provider Note Chest pain is better. Labs reviewed. Ok to discharge when ok with strapping machine tender. The patient was seen and examined by me. Chart reviewed and plan of care formulated. Discussed with, reviewed and agree with SALES AMBASSADOR's notes, plan of care and orders with modifications as necessary. Patient seen. See combined History and Physical and discharge summary for details. For more details regarding further plans, please refer to the orders. CHELE SINGH MD Mar 19, 2017 08:49
[2017-03-19] MEDS ORDERED: ALBUMIN HUMAN 25% 200 ML IV STA (08:54)
--- NOTE | 2017-03-19 08:59 | PDOC1 ---
HISTORY AND PHYSICAL Chief Complaint Chief Complaint This 46 year old female has been admitted with a chief complaint of chest pain. The onset was Wednesday at rest. She thought it was heartburn but it progressively became worse/constant. The pain was anterior and she felt it in her lungs. There were no accompanying symptoms except dry cough. There was pain in her L shoulder but not related to CP. She presented to the ED for evaluation. EKG and troponin were negative. BNP was mildly elevated at 5321 and CXR positive for mild CHF. She is admitted for further evaluation and treatment. 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, PVD ) Pulmonary: COPD, Pulmonary embolus, Other (JENNA with Chronic 2-3L NC (CPAP intolerant)) CENTRAL NERVOUS SYSTEM: CVA, Periperal neuropathy, Other GI: GERD Heme/Onc: Anemia NOS (ESRD ) Hepatobiliary: Other (GUY ) Psych: Anxiety, Depression Musculoskeletal: low back pain (LBP chronic ), Osteoarthritis (generalized ), Other Renal/: Chronic renal failure Endocrine: Diabetes (Type II insulin with neuropathy ), Hyperparathyroidism ( secondary ) Past Surgical History Past Surgical History: Cholecystectomy, , Hernia Repair, Other (PCI/ stent coronary: IVC filter ) Past Family History Family History: No Significant, Diabetes, Heart Disease, Hypertension Past Social History PSH lives with brother, remote h/o smoking, negative ETOH or illicit drug use Review of Symptoms Review of Symptoms A 14 point ROS was completed with the following noted as positive: per HPI Other systems reviewed and negative. Medications Current Medications Acetaminophen (Tylenol) 650 mg PRN Q6HRS PRN PO MILD PAIN / TEMP; Start at 08:30 Albuterol/ Ipratropium (Duoneb) 3 ml RTQID NEB ; Start 03/19/17 at 09:00 Apixaban (Eliquis) 5 mg BID PO ; Start 03/19/17 at 09:00 Ascorbic Acid (Vitamin C) 500 mg DAILY PO ; Start 03/19/17 at 09:00 Aspirin (Leighton Aspirin) 325 mg 1X ONCE PO ; Start 03/18/17 at 17:30; Stop at 17:31; Status DC Aspirin (Ecotrin) 81 mg DAILY PO ; Start 03/19/17 at 09:00 Atorvastatin Calcium (Lipitor) 40 mg HS PO ; Start 03/19/17 at 21:00 Calcium Carbonate/ Glycine (Tums) 500 mg PRN AFTMEALHC PRN PO INDIGESTION; Start 03/19/17 at 08:30 Carvedilol (Coreg) 3.125 mg BIDWMEALS PO ; Start 03/19/17 at 09:00 Darbepoetin Bacilio (Aranesp) 60 mcg WEEKLYHS SQ ; Start 03/19/17 at 21:00 Fentanyl (Duragesic 50mcg/ Hr Patch) 1 patch Q3DAYS TD ; Start 03/19/17 at 09:00 Fentanyl Citrate (Fentanyl 2ml Vial) 50 mcg PRN Q15MIN PRN IV PAIN GREATER THAN 3/10 Last administered on 03/18/17 16:55; Start 03/18/17 at 16:30; Stop 03/19 at 08:32; Status DC Fentanyl Citrate (Fentanyl 2ml Vial) 50 mcg PRN Q4HRS PRN IV PAIN GREATER THAN 3/10; Start 03/19/17 at 08:30 Hydromorphone HCl (Dilaudid) 0.4 mg PRN Q4HRS PRN IVP PAIN; Start 03/19/17 at 08 :30 Insulin Aspart (NovoLOG) 0-8 TIDAC SQ ; Start 03/19/17 at 09:00 Magnesium Hydroxide (Milk Of Magnesia) 2,400 mg PRN DAILY PRN PO CONSTIPATION; Start 03/19/17 at 08:30 Magnesium Oxide (Magnesium Oxide) 400 mg TID PO ; Start 03/19/17 at 09:00 Metoclopramide HCl (Reglan) 5 mg TIDAC PO ; Start 03/19/17 at 11:30 Morphine Sulfate 2 mg PRN Q2HR PRN IV PAIN Last administered on 03/19/17 07:40 ; Start 03/18/17 at 17:15; Stop 03/19/17 at 08:32; Status DC Nitroglycerin (Nitrostat) 0.4 mg PRN Q5MIN PRN SL CHEST PAIN; Start 03/18/17 at 17:15; Stop 03/19/17 at 08:32; Status DC Nitroglycerin (Nitrostat) 0.4 mg PRN Q5MIN PRN SL CHEST PAIN; Start 03/19/17 at 08:30 Nitroglycerin (Nitrostat) 0.4 mg PRN Q5MIN PRN SL CHEST PAIN; Start 03/19/17 at 08:30 Ondansetron HCl (Zofran) 4 mg PRN Q8HRS PRN IV NAUSEA/VOMITING Last administered on 03/18/17t 18:38; Start 03/18/17 at 17:15; Stop 03/19/17 at 08:32; Status DC Venlafaxine HCl (Effexor Xr) 37.5 mg DAILY PO ; Start 03/19/17 at 09:00 Allergy Allergies Coded Allergies Type Severity Reaction Last Updated Verified Penicillins Allergy Severe causes swelling of throat 01/15/17 Yes Sulfa (Sulfonamide Antibiotics) Allergy Severe causes throat to swell 01/15/17 Yes amoxicillin Allergy Severe causes swelling of throat 01/15/17 Yes clarithromycin Allergy Severe causes throat to swell 01/15/17 Yes codeine Allergy Severe "closed up my throat and itching" 01/31/17 Yes hydrocodone Allergy Severe "closes up my throat and itching" 01/31/17 Yes silver sulfadiazine Allergy Severe Rash 01/15/17 Yes oxycodone Allergy Intermediate 01/15/17 Yes tramadol Allergy Intermediate Nausea and Vomiting 01/15/17 Yes I S O L A T I O N *CONTACT* Allergy Unknown 01/15/17 Yes Physical Exam Physical Exam General appearance - alert,well appearing, and in no distress Mental Status - alert, oriented to person, place, and time, affect appropriate to mood Head - normal Chest - clear to auscultation, no wheezes, rales or rhonchi, chest wall tenderness anterior Heart - S1 and S2 normal Abdomen - soft, nontender, nondistended, obese, BS + Neurological - no acute focal neurological deficit noted Musculoskeletal - no muscular tenderness noted Extremities - +3R +L lower extremities Skin - warm and dry VTE Prophylaxis Ordered VTE Prophylaxis Devices: Yes VTE Pharmacological Prophylaxi: Yes Assessment Labs Laboratory Tests Test 03/18/17 15:45 03/18/17 21:11 03/19/17 00:02 03/19/17 05:00 White Blood Count 6.6 x10^3/uL (4.0-11.0) 7.9 x10^3/uL (4.0-11.0) Red Blood Count 3.80 x10^6/uL (3.50-5.40) 3.44 x10^6/uL (3.50-5.40) Hemoglobin 10.6 g/dL (12.0-15.5) 9.5 g/dL (12.0-15.5) Hematocrit 32.9 % (36.0-47.0) 29.7 % (36.0-47.0) Mean Corpuscular Volume 87 fL (79-100) 86 fL (79-100) Mean Corpuscular Hemoglobin 28 pg (25-35) 28 pg (25-35) Mean Corpuscular Hemoglobin Concent 32 g/dL (31-37) 32 g/dL (31-37) Red Cell Distribution Width 19.4 % (11.5-14.5) 19.9 % (11.5-14.5) Platelet Count 194 x10^3/uL (140-400) 195 x10^3/uL (140-400) Neutrophils (%) (Auto) 76 % (31-73) 78 % (31-73) Lymphocytes (%) (Auto) 17 % (24-48) 15 % (24-48) Monocytes (%) (Auto) 4 % (0-9) 4 % (0-9) Eosinophils (%) (Auto) 2 % (0-3) 3 % (0-3) Basophils (%) (Auto) 1 % (0-3) 1 % (0-3) Neutrophils # (Auto) 5.0 x10^3uL (1.8-7.7) 6.1 x10^3uL (1.8-7.7) Lymphocytes # (Auto) 1.1 x10^3/uL (1.0-4.8) 1.2 x10^3/uL (1.0-4.8) Monocytes # (Auto) 0.2 x10^3/uL (0.0-1.1) 0.3 x10^3/uL (0.0-1.1) Eosinophils # (Auto) 0.1 x10^3/uL (0.0-0.7) 0.2 x10^3/uL (0.0-0.7) Basophils # (Auto) 0.1 x10^3/uL (0.0-0.2) 0.1 x10^3/uL (0.0-0.2) Prothrombin Time 15.2 SEC (11.7-14.0) Prothromb Time International Ratio 1.3 (0.8-1.1) Sodium Level 142 mmol/L (136-145) 143 mmol/L (136-145) Potassium Level 3.5 mmol/L (3.5-5.1) 3.9 mmol/L (3.5-5.1) Chloride Level 104 mmol/L (98-107) 106 mmol/L (98-107) Carbon Dioxide Level 32 mmol/L (21-32) 30 mmol/L (21-32) Anion Gap 6 (6-14) 7 (6-14) Blood Urea Nitrogen 13 mg/dL (7-20) 16 mg/dL (7-20) Creatinine 2.1 mg/dL (0.6-1.0) 2.4 mg/dL (0.6-1.0) Estimated GFR (Cockcroft-Gault) 25.2 21.6 Glucose Level 282 mg/dL (70-99) 141 mg/dL (70-99) Calcium Level 8.4 mg/dL (8.5-10.1) 8.1 mg/dL (8.5-10.1) Total Bilirubin 0.5 mg/dL (0.2-1.0) Direct Bilirubin 0.1 mg/dL (0.0-0.2) Aspartate Amino Transf (AST/SGOT) 9 U/L (15-37) Alanine Aminotransferase (ALT/SGPT) 10 U/L (14-59) Alkaline Phosphatase 105 U/L (46-116) Creatine Kinase 42 U/L (26-192) Creatine Kinase MB (Mass) 0.5 ng/mL (0.0-3.6) Creatine Kinase MB Relative Index 1.2 % (0-4) Troponin I Quantitative 0.021 ng/mL (0.000-0.055) 0.022 ng/mL (0.000-0.055) 0.020 ng/mL (0.000-0.055) CQ-Zkw-D-Type Natriuretic Peptide 5321 pg/mL (0-124) Total Protein 7.3 g/dL (6.4-8.2) Albumin 2.8 g/dL (3.4-5.0) Lipase 97 U/L (73-393) Glucose (Fingerstick) 187 mg/dL (70-99) Test 03/19/17 07:55 Glucose (Fingerstick) 153 mg/dL (70-99) Laboratory Tests Test 03/18/17 15:45 03/18/17 21:11 03/19/17 00:02 03/19/17 05:00 White Blood Count 6.6 x10^3/uL (4.0-11.0) 7.9 x10^3/uL (4.0-11.0) Red Blood Count 3.80 x10^6/uL (3.50-5.40) 3.44 x10^6/uL (3.50-5.40) Hemoglobin 10.6 g/dL (12.0-15.5) 9.5 g/dL (12.0-15.5) Hematocrit 32.9 % (36.0-47.0) 29.7 % (36.0-47.0) Mean Corpuscular Volume 87 fL (79-100) 86 fL (79-100) Mean Corpuscular Hemoglobin 28 pg (25-35) 28 pg (25-35) Mean Corpuscular Hemoglobin Concent 32 g/dL (31-37) 32 g/dL (31-37) Red Cell Distribution Width 19.4 % (11.5-14.5) 19.9 % (11.5-14.5) Platelet Count 194 x10^3/uL (140-400) 195 x10^3/uL (140-400) Neutrophils (%) (Auto) 76 % (31-73) 78 % (31-73) Lymphocytes (%) (Auto) 17 % (24-48) 15 % (24-48) Monocytes (%) (Auto) 4 % (0-9) 4 % (0-9) Eosinophils (%) (Auto) 2 % (0-3) 3 % (0-3) Basophils (%) (Auto) 1 % (0-3) 1 % (0-3) Neutrophils # (Auto) 5.0 x10^3uL (1.8-7.7) 6.1 x10^3uL (1.8-7.7) Lymphocytes # (Auto) 1.1 x10^3/uL (1.0-4.8) 1.2 x10^3/uL (1.0-4.8) Monocytes # (Auto) 0.2 x10^3/uL (0.0-1.1) 0.3 x10^3/uL (0.0-1.1) Eosinophils # (Auto) 0.1 x10^3/uL (0.0-0.7) 0.2 x10^3/uL (0.0-0.7) Basophils # (Auto) 0.1 x10^3/uL (0.0-0.2) 0.1 x10^3/uL (0.0-0.2) Prothrombin Time 15.2 SEC (11.7-14.0) Prothromb Time International Ratio 1.3 (0.8-1.1) Sodium Level 142 mmol/L (136-145) 143 mmol/L (136-145) Potassium Level 3.5 mmol/L (3.5-5.1) 3.9 mmol/L (3.5-5.1) Chloride Level 104 mmol/L (98-107) 106 mmol/L (98-107) Carbon Dioxide Level 32 mmol/L (21-32) 30 mmol/L (21-32) Anion Gap 6 (6-14) 7 (6-14) Blood Urea Nitrogen 13 mg/dL (7-20) 16 mg/dL (7-20) Creatinine 2.1 mg/dL (0.6-1.0) 2.4 mg/dL (0.6-1.0) Estimated GFR (Cockcroft-Gault) 25.2 21.6 Glucose Level 282 mg/dL (70-99) 141 mg/dL (70-99) Calcium Level 8.4 mg/dL (8.5-10.1) 8.1 mg/dL (8.5-10.1) Total Bilirubin 0.5 mg/dL (0.2-1.0) Direct Bilirubin 0.1 mg/dL (0.0-0.2) Aspartate Amino Transf (AST/SGOT) 9 U/L (15-37) Alanine Aminotransferase (ALT/SGPT) 10 U/L (14-59) Alkaline Phosphatase 105 U/L (46-116) Creatine Kinase 42 U/L (26-192) Creatine Kinase MB (Mass) 0.5 ng/mL (0.0-3.6) Creatine Kinase MB Relative Index 1.2 % (0-4) Troponin I Quantitative 0.021 ng/mL (0.000-0.055) 0.022 ng/mL (0.000-0.055) 0.020 ng/mL (0.000-0.055) XU-Hyz-T-Type Natriuretic Peptide 5321 pg/mL (0-124) Total Protein 7.3 g/dL (6.4-8.2) Albumin 2.8 g/dL (3.4-5.0) Lipase 97 U/L (73-393) Glucose (Fingerstick) 187 mg/dL (70-99) Test 03/19/17 07:55 Glucose (Fingerstick) 153 mg/dL (70-99) Plan Plan IMPRESSION: 1. chest pain with breathing r/t CHF acute on chronic CC last month negative. 2. A/C systolic CHF EF 25% per CC 3. chronic chest wall pain costochondritis 4. ESRD requiring hemodialysis 5. DVT RLE 12/11/16 on Eliquis with h/o PE, DVT RLE & IVC filte 6. DM II with neuropathy, PVD, chronic insulin use 7. anxiety/depression 8. HTN 9. hyperlipidemia 10. CAD with h/o WI and PCI with stent placed 11. GERD 12. chronic LBP 13. h/o hypercapnic/hypoxic respiratory failure with narcotics 13. 14. h/o CVA 15. COPD with remote h/o tobacco abuse 16. h/o urine retention 17. 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 morbid obesity 19. JENNA O2 3L NC at hs (CPAP in tolerant) 20. severe chronic PCL malnutrition 21. anemia CD renal PLAN: chest pain cardiac consult Troponin and EKG negative r/t CHF A/C CHF Chronic issue -regulated by HD-low BP so fluid removal guided by BP Admit wt 282.06 cough r/t CHF DM II FSBS SSI Lantus 50 units in AM Novolog 45u tid ac scheduled Glucose 141-187 DVT/GI prophylaxis SCD Eliquis PPI For more details regarding further plans, please refer to the orders. Cardiology to see for chest pain. Nephrology consulted for ESRD-on HD this morning. If consultants agree, will plan DC home later today. CC in February negative CAD. CP due to CHF. YVONNE LAYNE APRN Mar 19, 2017 08:59
[2017-03-19] MEDS ORDERED: DIALYSIS PATIENT. MC PRN (09:00)
[2017-03-19] MEDS ORDERED: fentaNYL 50MCG/HR PATCH 1 PATCH PATCH.TD72 TD SCH (09:00)
[2017-03-19] MEDS: INSULIN ASPART 300 UNITS/3 ML INSULN.PEN SQ SCH ×5 (09:00→17:02)
[2017-03-19] MEDS: MAGNESIUM OXIDE 400 MG TABLET PO SCH ×3 (09:00→20:34)
[2017-03-19] MEDS ORDERED: diphenhydrAMINE 50 MG/ML VIAL IV PRN ×2 (09:00)
[2017-03-19] MEDS: VENLAFAXINE XR 37.5 MG CAP.ER.24H. PO SCH ×2 (09:00→13:29)
[2017-03-19] MEDS: CARVEDILOL 3.125 MG TABLET. PO SCH ×2 (09:00→16:33)
--- NOTE | 2017-03-19 09:03 | DISCH ---
DISCHARGE DISCHARGE DATE: Mar 19, 2017 FINAL DIAGNOSIS Problems Medical Problems: (1) Chest pain Status: Acute CONDITION ON DISCHARGE: Stable HOME HEALTH: Yes POST DISCHARGE ORDERS ACTIVITY ORDERS: Activity as tolerated WEIGHT BEARING STATUS: As tolerated DIET AFTER DISCHARGE: Cardiac OTHER ORDERS: F/U wound care per nurse instructions CHECKS AFTER DISCHARGE CHECKS AFTER DISCHARGE: Check blood sugar, ac/hs (check blood sugar before meals ) FOLLOW-UP PHYSICIAN FOLLOW-UP: Dr. Johnson or Jony next Wednesday TREATMENT/EQUIPMENT ORDERS RESPIRATORY EQUIPMENT NEEDED: Oxygen (2-3 L NC ), Nebulizer (QID ) YVONNE LAYNE APRN Mar 19, 2017 09:03
[2017-03-19] MEDS ORDERED: HYDR4TAB45 PO (09:06)
--- NOTE | 2017-03-19 09:10 | DISCH ---
DISCHARGE WITH HOME HEALTH DISCHARGE INFORMATION: Discharge Date: Mar 19, 2017 Final Diagnosis: Problems Medical Problems: (1) Chest pain Status: Acute Condition on Discharge: Stable HOME HEALTH: Face to Face: I certify this patient is under my care and that my nurse practitioner working with me, had a face to face encounter that meets the physician face to face encounter requirements with this patient on 03/19/17. Medical Condition(s): CHF Group Home For: Assess/Skilled Observatio Patient meets Homebound Statu: Limited distance walking FOLLOW-UP: Follow up with: Dr. Johnson or Jony on Wednesday CERTIFICATION STATEMENT: Certification Statement: Certification Statement: Based on the above finding, I certify that this patient is confined to the home and needs intermittent prison care, physical therapy and/or speech therapy, or continues to need occupational therapy.~ This patient is under my care, and I have initiated the establishment of the plan of care.~ This patient will be followed by myself or a community physician who will periodically review the plan of care. YVONNE LAYNE APRN Mar 19, 2017 09:10
[2017-03-19] MEDS: INSULIN DETEMIR 300 UNITS/3 ML INSULN.PEN. SQ SCH (09:30)
--- NOTE | 2017-03-19 09:57 | PDOC2 ---
FANTASMA ALCANTARA FLORIST MANAGER 03/19/17 0957: CARDIAC CONSULT DATE OF CONSULT Date of Consult DATE: 03/19/17 TIME: 09:51 REASON FOR CONSULT Reason for Consult: Chest pain REFERRING PHYSICIAN Referring Physician: Dr. Li SOURCE Source: Chart review, Patient HISTORY OF PRESENT ILLNESS HISTORY OF PRESENT ILLNESS This is a 46 yo female who presented with complaints of chest pain. Patient reports pain began last night when she awoke from sleeping. Located in her central chest. Describes as a burning pain. Non-radiating. Denies any associated dizziness, diaphoresis, palpitations, SOA, or nausea/vomiting. Worsened by applying pressure to the chest. Pain resolved upon admission with pain medication. Patient does have a history of CAD with previously stent to the LAD. Recent cardiac cath showed patentcy of that stent. Patient reports pain is very different from what she experienced with previous HI when stent was placed. Reports compliance with medications and HD. PAST MEDICAL HISTORY Past Medical History Cardiovascular: CAD s/p PCI/stent to the LAD, CHF (cardiomyopathy), HTN, HI, Hyperlipidemia, Other (PVD) Pulmonary: COPD, Pulmonary embolus, Other (JENNA - untreated) CENTRAL NERVOUS SYSTEM: CVA, Peripheral neuropathy GI: GERD, morbid obesity Heme/Onc: Anemia NOS Hepatobiliary: No pertinent hx Psych: Anxiety, Depression Musculoskeletal: low back pain, Osteoarthritis, Other (DVT RLE) Infectious disease: Other (C-diff, pseudomonas) ENT: No pertinent hx Renal/: Chronic renal insuff (ESRD) - right tunneled HD cath Endocrine: Diabetes (2) Dermatology: Other (right foot ulcer with osteomyelitis) PAST SURGICAL HISTORY Past Surgical History Cholecystectomy, , Hernia Repair, Other (toe amputation; IVC filter, recent right foot I & D 12/2016) FAMILY HISTORY Family History Diabetes, Heart Disease, Hypertension SOCIAL HISTORY Social History Smoke: No (quit) ALCOHOL: none Drugs: None CURRENT MEDICATIONS CURRENT MEDICATIONS Current Medications Medications (Trade) Dose Ordered Sig/Ant Route PRN Reason Start Time Stop Time Status Last Admin Dose Admin Fentanyl Citrate (Fentanyl 2ml Vial) 50 mcg PRN Q15MIN PRN IV PAIN GREATER THAN 3/10 03/18/17 16:30 03/19/17 08:32 DC 03/18/17 16:55 Ondansetron HCl (Zofran) 4 mg PRN Q8HRS PRN IV NAUSEA/VOMITING 03/18/17 17:15 03/19/17 08:32 DC 03/18/17 18:38 Morphine Sulfate 2 mg PRN Q2HR PRN IV PAIN 03/18/17 17:15 03/19/17 08:32 DC 03/19/17 07:40 Albumin Human 200 ml @ 200 mls/hr 1X STAT IV 03/19/17 08:54 03/19/17 09:53 03/19/17 09:25 ALLERGIES ALLERGIES: Coded Allergies: Penicillins (Verified Allergy, Severe, causes swelling of throat, 01/15/17) Sulfa (Sulfonamide Antibiotics) (Verified Allergy, Severe, causes throat to swell, 01/15/17) amoxicillin (Verified Allergy, Severe, causes swelling of throat, 01/15/17) clarithromycin (Verified Allergy, Severe, causes throat to swell, 01/15/17) codeine (Verified Allergy, Severe, "closed up my throat and itching", 01/31) tolerates percocet, Dilaudid is home med hydrocodone (Verified Allergy, Severe, "closes up my throat and itching", 01/31/17) tolerates percocet, Dilaudid is home med silver sulfadiazine (Verified Allergy, Severe, Rash, 01/15/17) oxycodone (Verified Allergy, Intermediate, 01/15/17) tramadol (Verified Allergy, Intermediate, Nausea and Vomiting, 01/15/17) I S O L A T I O N *CONTACT* (Verified Allergy, Unknown, 01/15/17) mrsa ROS Review of System 14 point ROS conducted with pertinent positives noted above in HPI. PHYSICAL EXAM General: Alert, Oriented X3, Cooperative, No acute distress HEENT: Atraumatic, Mucous membr. moist/pink Lungs: Other (pain reproducible with palpation to left chect and sternum, right chest HD catheter) Heart: Regular rate, Normal S1, Normal S2 Abdomen: Soft, Other (truncal obesity ) Extremities: Other (1+ bilateral LE edema ) Skin: No significant lesion Neuro: Normal speech, Sensation intact Psych/Mental Status: Mental status NL, Mood NL MUSCULOSKELETAL: Osteoarthritic changes both hands VITALS VITALS Vital Signs Date Time Temp Pulse Resp B/P (MAP) Pulse Ox O2 Delivery O2 Flow Rate FiO2 03/19/17 08:00 Nasal Cannula 2.0 03/19/17 07:40 18 03/19/17 07:00 98.2 86 99/65 (88) 91 98.2 LABS Lab: Laboratory Tests Test 03/18/17 15:45 03/18/17 21:11 03/19/17 00:02 03/19/17 05:00 White Blood Count 6.6 x10^3/uL (4.0-11.0) 7.9 x10^3/uL (4.0-11.0) Red Blood Count 3.80 x10^6/uL (3.50-5.40) 3.44 x10^6/uL (3.50-5.40) Hemoglobin 10.6 g/dL (12.0-15.5) 9.5 g/dL (12.0-15.5) Hematocrit 32.9 % (36.0-47.0) 29.7 % (36.0-47.0) Mean Corpuscular Volume 87 fL (79-100) 86 fL (79-100) Mean Corpuscular Hemoglobin 28 pg (25-35) 28 pg (25-35) Mean Corpuscular Hemoglobin Concent 32 g/dL (31-37) 32 g/dL (31-37) Red Cell Distribution Width 19.4 % (11.5-14.5) 19.9 % (11.5-14.5) Platelet Count 194 x10^3/uL (140-400) 195 x10^3/uL (140-400) Neutrophils (%) (Auto) 76 % (31-73) 78 % (31-73) Lymphocytes (%) (Auto) 17 % (24-48) 15 % (24-48) Monocytes (%) (Auto) 4 % (0-9) 4 % (0-9) Eosinophils (%) (Auto) 2 % (0-3) 3 % (0-3) Basophils (%) (Auto) 1 % (0-3) 1 % (0-3) Neutrophils # (Auto) 5.0 x10^3uL (1.8-7.7) 6.1 x10^3uL (1.8-7.7) Lymphocytes # (Auto) 1.1 x10^3/uL (1.0-4.8) 1.2 x10^3/uL (1.0-4.8) Monocytes # (Auto) 0.2 x10^3/uL (0.0-1.1) 0.3 x10^3/uL (0.0-1.1) Eosinophils # (Auto) 0.1 x10^3/uL (0.0-0.7) 0.2 x10^3/uL (0.0-0.7) Basophils # (Auto) 0.1 x10^3/uL (0.0-0.2) 0.1 x10^3/uL (0.0-0.2) Prothrombin Time 15.2 SEC (11.7-14.0) Prothromb Time International Ratio 1.3 (0.8-1.1) Sodium Level 142 mmol/L (136-145) 143 mmol/L (136-145) Potassium Level 3.5 mmol/L (3.5-5.1) 3.9 mmol/L (3.5-5.1) Chloride Level 104 mmol/L (98-107) 106 mmol/L (98-107) Carbon Dioxide Level 32 mmol/L (21-32) 30 mmol/L (21-32) Anion Gap 6 (6-14) 7 (6-14) Blood Urea Nitrogen 13 mg/dL (7-20) 16 mg/dL (7-20) Creatinine 2.1 mg/dL (0.6-1.0) 2.4 mg/dL (0.6-1.0) Estimated GFR (Cockcroft-Gault) 25.2 21.6 Glucose Level 282 mg/dL (70-99) 141 mg/dL (70-99) Calcium Level 8.4 mg/dL (8.5-10.1) 8.1 mg/dL (8.5-10.1) Total Bilirubin 0.5 mg/dL (0.2-1.0) Direct Bilirubin 0.1 mg/dL (0.0-0.2) Aspartate Amino Transf (AST/SGOT) 9 U/L (15-37) Alanine Aminotransferase (ALT/SGPT) 10 U/L (14-59) Alkaline Phosphatase 105 U/L (46-116) Creatine Kinase 42 U/L (26-192) Creatine Kinase MB (Mass) 0.5 ng/mL (0.0-3.6) Creatine Kinase MB Relative Index 1.2 % (0-4) Troponin I Quantitative 0.021 ng/mL (0.000-0.055) 0.022 ng/mL (0.000-0.055) 0.020 ng/mL (0.000-0.055) FC-Tas-S-Type Natriuretic Peptide 5321 pg/mL (0-124) Total Protein 7.3 g/dL (6.4-8.2) Albumin 2.8 g/dL (3.4-5.0) Lipase 97 U/L (73-393) Glucose (Fingerstick) 187 mg/dL (70-99) Test 03/19/17 07:55 Glucose (Fingerstick) 153 mg/dL (70-99) ECHOCARDIOGRAM ECHOCARDIOGRAM <Conclusion> The Left Ventricle is mildly dilated. The systolic function is moderate to severely impaired. The Ejection Fraction is 30-35%. There is global hypokinesis of the left ventricle. There is no significant aortic valvular stenosis. Doppler and Color Flow revealed no significant aortic regurgitation. Doppler and Color-flow revealed mild mitral regurgitation. Doppler and Color Flow revealed trace tricuspid regurgitation. The PA pressure was estimated at 22 mmHg. DATE: 07/14/161748 HEART CATH HEART CATH 02/18/17 CORONARY ANGIOGRAPHY: LM is a large caliber vessel with normal angiographic appearance. LAD is a large caliber vessel with a patent proximal stent. D1/D2 are small caliber vessels with normal angiographic apeparance. LCx is a moderate caliber non-dominant vessel with normal angiographic appearance. OM1 is a moderate caliber vessel with normal angiographic appearance. RCA is a large caliber dominant vessel with normal angiographic appearance. RPDA and RPL are small caliber vessels with normal angiographic appearance. Conclusion 1. Severe LV dysfunction. EF 25%. 2. LVEDP 35 mm Hg 3. Patent LAD stent. Recommendations Aggressive Medical Therapy ASSESSMENT/PLAN ASSESSMENT/PLAN 1. chest pain, noncardiac EKG and troponin levels not consistent with ACS pain reproducible and likely musculoskeletal in etiology recent cardiac cath showed patency of previously placed stent to LAD. no further cardiac workup warranted at this time; patient to f/u with routine director outpatient services at 2. CAD s/p PCI/stent to LAD recent cath as above. stable. continue secondary prevention 3. cardiomyopathy, ischemic LVEF ~ 30-35% has declined ICD continue medical management 4. chronic systolic HF compensated continue fluid offloading/management via HD per nephrology no ANNA/ARB as marginal BP will not tolerate. Continue BB. 5. HTN control with meds; low-normotensive 6. HLD continue statin therapy 7. ESRD with HD Problems: SHEREEN ORTIZ MD 03/20/17 0657: CARDIAC CONSULT ALLERGIES ALLERGIES: Coded Allergies: Penicillins (Verified Allergy, Severe, causes swelling of throat, 01/15/17) Sulfa (Sulfonamide Antibiotics) (Verified Allergy, Severe, causes throat to swell, 01/15/17) amoxicillin (Verified Allergy, Severe, causes swelling of throat, 01/15/17) clarithromycin (Verified Allergy, Severe, causes throat to swell, 01/15/17) codeine (Verified Allergy, Severe, "closed up my throat and itching", 01/31) tolerates percocet, Dilaudid is home med hydrocodone (Verified Allergy, Severe, "closes up my throat and itching", 01/31/17) tolerates percocet, Dilaudid is home med silver sulfadiazine (Verified Allergy, Severe, Rash, 01/15/17) oxycodone (Verified Allergy, Intermediate, 01/15/17) tramadol (Verified Allergy, Intermediate, Nausea and Vomiting, 01/15/17) I S O L A T I O N *CONTACT* (Verified Allergy, Unknown, 01/15/17) mrsa ASSESSMENT/PLAN ASSESSMENT/PLAN Patient seen and examined 03/19/17. Agree with COMMUNITY ENGAGEMENT REPRESENTATIVE's assessment and plan. CP very atypical, reproducible to palpation and most probably musculoskeletal. Recent cath findings noted above. Chronic systolic heart failure well compensated. No further workup is indicated at this time. Thank you for your consultation. Problems: FANTASMA ALCANTARA APRN Mar 19, 2017 09:57 SHEREEN ORTIZ MD Mar 20, 2017 06:57
[2017-03-19] MEDS: IPRATRPIUM/ALBUTEROL 0.5/2.5MG 3 ML NEBU. NEB SCH ×3 (11:37→19:28)
[2017-03-19 13:05] VITALS: BP 111/62
[2017-03-19] MEDS: fentaNYL PF VIAL 100 MCG/2 ML VIAL IV PRN ×2 (13:26→20:14)
[2017-03-19] MEDS: ASPIRIN ENTERIC COATED 81 MG TABLET.DR. PO SCH (13:28)
[2017-03-19] MEDS: ASCORBIC ACID 500 MG TABLET PO SCH (13:29)
[2017-03-19] MEDS: METOCLOPRAMIDE 10 MG TABLET. PO SCH ×2 (13:29→16:59)
[2017-03-19] MEDS: APIXABAN 5 MG TABLET. PO SCH ×2 (13:29→20:13)
[2017-03-19 15:00] VITALS: BP 93/54
[2017-03-19] MEDS: HYDROmorphone 2 MG/ML VIAL IVP PRN ×2 (15:52→23:12)
[2017-03-19 19:00] VITALS: BP 106/65
[2017-03-19] MEDS ORDERED: ANTI-COAG MONITOR BY PHARMACY. MC PRN (20:45)
[2017-03-19] MEDS ORDERED: ATORVASTATIN CALCIUM 40 MG TABLET. PO SCH (21:00)
[2017-03-19 21:09] LABS: HEP B SURFACE ABDY Non Reactive (.)
[2017-03-19 23:00] VITALS: BP 106/62
--- NOTE | 2017-03-19 23:48 | PDOC2 ---
Consult: RENAL CONSULT / HAIDERI: REASON FOR CONSULT ESRD. REFERRING PHYSICIAN Referring Physician: Dr. Li SOURCE Source: Chart review, Patient HISTORY OF PRESENT ILLNESS HISTORY OF PRESENT ILLNESS This is a 46 yo female who presented with complaints of chest pain. Patient reports pain began last night when she awoke from sleeping. Located in her central chest. Describes as a burning pain. Non-radiating. Denies any associated dizziness, diaphoresis, palpitations, SOA, or nausea/vomiting. Worsened by applying pressure to the chest. Pain resolved upon admission with pain medication. Patient does have a history of CAD with previously stent to the LAD. Recent cardiac cath showed patentcy of that stent. Patient reports pain is very different from what she experienced with previous [place] when stent was placed. Reports compliance with medications and HD. Fluid overloaded. HD today. Seen on RX. PAST MEDICAL HISTORY Past Medical History Cardiovascular: CAD s/p PCI/stent to the LAD, CHF (cardiomyopathy), HTN, RI, Hyperlipidemia, Other (PVD) Pulmonary: COPD, Pulmonary embolus, Other (JENNA - untreated) CENTRAL NERVOUS SYSTEM: CVA, Peripheral neuropathy GI: GERD, morbid obesity Heme/Onc: Anemia NOS Hepatobiliary: No pertinent hx Psych: Anxiety, Depression Musculoskeletal: low back pain, Osteoarthritis, Other (DVT RLE) Infectious disease: Other (C-diff, pseudomonas) ENT: No pertinent hx Renal/: Chronic renal insuff (ESRD) - right tunneled HD cath Endocrine: Diabetes (2) Dermatology: Other (right foot ulcer with osteomyelitis) PAST SURGICAL HISTORY Past Surgical History Cholecystectomy, , Hernia Repair, Other (toe amputation; IVC filter, recent right foot I & D 12/2016) FAMILY HISTORY Family History Diabetes, Heart Disease, Hypertension SOCIAL HISTORY Social History Smoke: No (quit) ALCOHOL: none Drugs: None CURRENT MEDICATIONS CURRENT MEDICATIONS Current Medications Medications (Trade) Dose Ordered Sig/Ant Route PRN Reason Start Time Stop Time Status Last Admin Dose Admin Fentanyl Citrate (Fentanyl 2ml Vial) 50 mcg PRN Q15MIN PRN IV PAIN GREATER THAN 3/10 03/18/17 16:30 03/19/17 08:32 DC 03/18/17 16:55 Ondansetron HCl (Zofran) 4 mg PRN Q8HRS PRN IV NAUSEA/VOMITING 03/18/17 17:15 03/19/17 08:32 DC 03/18/17 18:38 Morphine Sulfate 2 mg PRN Q2HR PRN IV PAIN 03/18/17 17:15 03/19/17 08:32 DC 03/19/17 07:40 Albumin Human 200 ml @ 200 mls/hr 1X STAT IV 03/19/17 08:54 03/19/17 09:53 03/19/17 09:25 ALLERGIES ALLERGIES: Coded Allergies: Penicillins (Verified Allergy, Severe, causes swelling of throat, 01/15/17) Sulfa (Sulfonamide Antibiotics) (Verified Allergy, Severe, causes throat to swell, 01/15/17) amoxicillin (Verified Allergy, Severe, causes swelling of throat, 01/15/17) clarithromycin (Verified Allergy, Severe, causes throat to swell, 01/15/17) codeine (Verified Allergy, Severe, "closed up my throat and itching", 01/31) tolerates percocet, Dilaudid is home med hydrocodone (Verified Allergy, Severe, "closes up my throat and itching", 01/31/17) tolerates percocet, Dilaudid is home med silver sulfadiazine (Verified Allergy, Severe, Rash, 01/15/17) oxycodone (Verified Allergy, Intermediate, 01/15/17) tramadol (Verified Allergy, Intermediate, Nausea and Vomiting, 01/15/17) I S O L A T I O N *CONTACT* (Verified Allergy, Unknown, 01/15/17) mrsa ROS Review of System 14 point ROS conducted with pertinent positives noted above in HPI. PHYSICAL EXAM General: Alert, Oriented X3, Cooperative, No acute distress HEENT: Atraumatic, Mucous membr. moist/pink Lungs: Other (pain reproducible with palpation to left chect and sternum, right chest HD catheter) Heart: Regular rate, Normal S1, Normal S2 Abdomen: Soft, Other (truncal obesity ) Extremities: Other (1+ bilateral LE edema ) Skin: No significant lesion Neuro: Normal speech, Sensation intact Psych/Mental Status: Mental status NL, Mood NL MUSCULOSKELETAL: Osteoarthritic changes both hands VITALS VITALS Vital Signs Date Time Temp Pulse Resp B/P (MAP) Pulse Ox O2 Delivery O2 Flow Rate FiO2 03/19/17 08:00 Nasal Cannula 2.0 03/19/17 07:40 18 03/19/17 07:00 98.2 86 99/65 (76) 91 98.2 LABS Lab: Laboratory Tests Test 03/18/17 15:45 03/18/17 21:11 03/19/17 00:02 03/19/17 05:00 White Blood Count 6.6 x10^3/uL (4.0-11.0) 7.9 x10^3/uL (4.0-11.0) Red Blood Count 3.80 x10^6/uL (3.50-5.40) 3.44 x10^6/uL (3.50-5.40) Hemoglobin 10.6 g/dL (12.0-15.5) 9.5 g/dL (12.0-15.5) Hematocrit 32.9 % (36.0-47.0) 29.7 % (36.0-47.0) Mean Corpuscular Volume 87 fL (79-100) 86 fL (79-100) Mean Corpuscular Hemoglobin 28 pg (25-35) 28 pg (25-35) Mean Corpuscular Hemoglobin Concent 32 g/dL (31-37) 32 g/dL (31-37) Red Cell Distribution Width 19.4 % (11.5-14.5) 19.9 % (11.5-14.5) Platelet Count 194 x10^3/uL (140-400) 195 x10^3/uL (140-400) Neutrophils (%) (Auto) 76 % (31-73) 78 % (31-73) Lymphocytes (%) (Auto) 17 % (24-48) 15 % (24-48) Monocytes (%) (Auto) 4 % (0-9) 4 % (0-9) Eosinophils (%) (Auto) 2 % (0-3) 3 % (0-3) Basophils (%) (Auto) 1 % (0-3) 1 % (0-3) Neutrophils # (Auto) 5.0 x10^3uL (1.8-7.7) 6.1 x10^3uL (1.8-7.7) Lymphocytes # (Auto) 1.1 x10^3/uL (1.0-4.8) 1.2 x10^3/uL (1.0-4.8) Monocytes # (Auto) 0.2 x10^3/uL (0.0-1.1) 0.3 x10^3/uL (0.0-1.1) Eosinophils # (Auto) 0.1 x10^3/uL (0.0-0.7) 0.2 x10^3/uL (0.0-0.7) Basophils # (Auto) 0.1 x10^3/uL (0.0-0.2) 0.1 x10^3/uL (0.0-0.2) Prothrombin Time 15.2 SEC (11.7-14.0) Prothromb Time International Ratio 1.3 (0.8-1.1) Sodium Level 142 mmol/L (136-145) 143 mmol/L (136-145) Potassium Level 3.5 mmol/L (3.5-5.1) 3.9 mmol/L (3.5-5.1) Chloride Level 104 mmol/L (98-107) 106 mmol/L (98-107) Carbon Dioxide Level 32 mmol/L (21-32) 30 mmol/L (21-32) Anion Gap 6 (6-14) 7 (6-14) Blood Urea Nitrogen 13 mg/dL (7-20) 16 mg/dL (7-20) Creatinine 2.1 mg/dL (0.6-1.0) 2.4 mg/dL (0.6-1.0) Estimated GFR (Cockcroft-Gault) 25.2 21.6 Glucose Level 282 mg/dL (70-99) 141 mg/dL (70-99) Calcium Level 8.4 mg/dL (8.5-10.1) 8.1 mg/dL (8.5-10.1) Total Bilirubin 0.5 mg/dL (0.2-1.0) Direct Bilirubin 0.1 mg/dL (0.0-0.2) Aspartate Amino Transf (AST/SGOT) 9 U/L (15-37) Alanine Aminotransferase (ALT/SGPT) 10 U/L (14-59) Alkaline Phosphatase 105 U/L (46-116) Creatine Kinase 42 U/L (26-192) Creatine Kinase MB (Mass) 0.5 ng/mL (0.0-3.6) Creatine Kinase MB Relative Index 1.2 % (0-4) Troponin I Quantitative 0.021 ng/mL (0.000-0.055) 0.022 ng/mL (0.000-0.055) 0.020 ng/mL (0.000-0.055) WR-Skv-O-Type Natriuretic Peptide 5321 pg/mL (0-124) Total Protein 7.3 g/dL (6.4-8.2) Albumin 2.8 g/dL (3.4-5.0) Lipase 97 U/L (73-393) Glucose (Fingerstick) 187 mg/dL (70-99) Test 03/19/17 07:55 Glucose (Fingerstick) 153 mg/dL (70-99) ASSESSMENT/PLAN ESRD CHEST PAIN HTN w CKD CAD/CHF. Appears fluid over loaded. Seen on HD 4-5 kg UF Supportive care. Labs Thank you. JOSE ANTONIO MAGDALENO MD Mar 19, 2017 23:48
[2017-03-20 03:00] VITALS: BP 100/61
[2017-03-20] MEDS: HYDROmorphone 2 MG/ML VIAL IVP PRN (04:33)
[2017-03-20 04:54] LABS: BASO # 0.1 x10^3/uL (0.0-0.2); BASO % 1 % (0-3); EOS % 3 % (0-3); HEMATOCRIT 29.9 % (36.0-47.0); HEMOGLOBIN 9.4 g/dL (12.0-15.5); LYMPH # 1.1 x10^3/uL (1.0-4.8); LYMPH % 18 % (24-48); MEAN CORPUSCULAR HEMOGLOBIN 27 pg (25-35); MEAN CORPUSCULAR HGB CONC 32 g/dL (31-37); MEAN CORPUSCULAR VOLUME 87 fL (79-100); MONO % 5 % (0-9); NEUT % 73 % (31-73); PLATELET COUNT 162 x10^3/uL (140-400); RED BLOOD COUNT 3.44 x10^6/uL (3.50-5.40); RED CELL DISTRIBUTION WIDTH 19.1 % (11.5-14.5); WHITE BLOOD COUNT 5.9 x10^3/uL (4.0-11.0)
[2017-03-20 05:21] LABS: CALCIUM 8.5 mg/dL (8.5-10.1); CREATININE 2.1 mg/dL (0.6-1.0); GFR 25.2; POTASSIUM 4.1 mmol/L (3.5-5.1)
--- NOTE | 2017-03-20 05:24 | PDOC3 ---
RAMONITACRISTINAYVONNE INVESTMENT RECOVERY TECHNICIAN 03/20/17 0524: IM DISCHARGE & PROGRESS NOTES Date of Admission Date of Admission Date of Admission: Mar 18, 2017 at 17:00 Date of Discharge Date of Discharge 03/20/17 Primary Diagnosis Primary Diagnosis 1. chest pain with breathing r/t CHF acute on chronic CC last month negative. 2. A/C systolic CHF EF 25% per CC 3. chronic chest wall pain costochondritis 4. ESRD requiring hemodialysis 5. DVT RLE 12/11/16 on Eliquis with h/o PE, DVT RLE & IVC filte 6. DM II with neuropathy, PVD, chronic insulin use 7. anxiety/depression 8. HTN 9. hyperlipidemia 10. CAD with h/o OR and PCI with stent placed 11. GERD 12. chronic LBP 13. h/o hypercapnic/hypoxic respiratory failure with narcotics 13. 14. h/o CVA 15. COPD with remote h/o tobacco abuse 16. h/o urine retention 17. 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 morbid obesity 19. JENNA O2 3L NC at hs (CPAP in tolerant) 20. severe chronic PCL malnutrition 21. anemia CD renal Consults Consults Arelis Felipe MD, Dr Procedures Procedures HD inpatient x 2 Labs Labs Laboratory Tests Test 03/18/17 15:45 03/18/17 21:11 03/19/17 00:02 03/19/17 05:00 White Blood Count 6.6 x10^3/uL (4.0-11.0) 7.9 x10^3/uL (4.0-11.0) Red Blood Count 3.80 x10^6/uL (3.50-5.40) 3.44 x10^6/uL (3.50-5.40) Hemoglobin 10.6 g/dL (12.0-15.5) 9.5 g/dL (12.0-15.5) Hematocrit 32.9 % (36.0-47.0) 29.7 % (36.0-47.0) Mean Corpuscular Volume 87 fL (79-100) 86 fL (79-100) Mean Corpuscular Hemoglobin 28 pg (25-35) 28 pg (25-35) Mean Corpuscular Hemoglobin Concent 32 g/dL (31-37) 32 g/dL (31-37) Red Cell Distribution Width 19.4 % (11.5-14.5) 19.9 % (11.5-14.5) Platelet Count 194 x10^3/uL (140-400) 195 x10^3/uL (140-400) Neutrophils (%) (Auto) 76 % (31-73) 78 % (31-73) Lymphocytes (%) (Auto) 17 % (24-48) 15 % (24-48) Monocytes (%) (Auto) 4 % (0-9) 4 % (0-9) Eosinophils (%) (Auto) 2 % (0-3) 3 % (0-3) Basophils (%) (Auto) 1 % (0-3) 1 % (0-3) Neutrophils # (Auto) 5.0 x10^3uL (1.8-7.7) 6.1 x10^3uL (1.8-7.7) Lymphocytes # (Auto) 1.1 x10^3/uL (1.0-4.8) 1.2 x10^3/uL (1.0-4.8) Monocytes # (Auto) 0.2 x10^3/uL (0.0-1.1) 0.3 x10^3/uL (0.0-1.1) Eosinophils # (Auto) 0.1 x10^3/uL (0.0-0.7) 0.2 x10^3/uL (0.0-0.7) Basophils # (Auto) 0.1 x10^3/uL (0.0-0.2) 0.1 x10^3/uL (0.0-0.2) Prothrombin Time 15.2 SEC (11.7-14.0) Prothromb Time International Ratio 1.3 (0.8-1.1) Sodium Level 142 mmol/L (136-145) 143 mmol/L (136-145) Potassium Level 3.5 mmol/L (3.5-5.1) 3.9 mmol/L (3.5-5.1) Chloride Level 104 mmol/L (98-107) 106 mmol/L (98-107) Carbon Dioxide Level 32 mmol/L (21-32) 30 mmol/L (21-32) Anion Gap 6 (6-14) 7 (6-14) Blood Urea Nitrogen 13 mg/dL (7-20) 16 mg/dL (7-20) Creatinine 2.1 mg/dL (0.6-1.0) 2.4 mg/dL (0.6-1.0) Estimated GFR (Cockcroft-Gault) 25.2 21.6 Glucose Level 282 mg/dL (70-99) 141 mg/dL (70-99) Calcium Level 8.4 mg/dL (8.5-10.1) 8.1 mg/dL (8.5-10.1) Total Bilirubin 0.5 mg/dL (0.2-1.0) Direct Bilirubin 0.1 mg/dL (0.0-0.2) Aspartate Amino Transf (AST/SGOT) 9 U/L (15-37) Alanine Aminotransferase (ALT/SGPT) 10 U/L (14-59) Alkaline Phosphatase 105 U/L (46-116) Creatine Kinase 42 U/L (26-192) Creatine Kinase MB (Mass) 0.5 ng/mL (0.0-3.6) Creatine Kinase MB Relative Index 1.2 % (0-4) Troponin I Quantitative 0.021 ng/mL (0.000-0.055) 0.022 ng/mL (0.000-0.055) 0.020 ng/mL (0.000-0.055) CE-Yhd-Y-Type Natriuretic Peptide 5321 pg/mL (0-124) Total Protein 7.3 g/dL (6.4-8.2) Albumin 2.8 g/dL (3.4-5.0) Lipase 97 U/L (73-393) Glucose (Fingerstick) 187 mg/dL (70-99) Hepatitis B Surface Antigen Negative (Negative) Hepatitis B Surface Antibody Non reactive (.) Test 03/19/17 07:55 03/19/17 13:13 03/19/17 16:12 03/19/17 21:10 Glucose (Fingerstick) 153 mg/dL (70-99) 121 mg/dL (70-99) 173 mg/dL (70-99) 218 mg/dL (70-99) Test 03/20/17 03:50 White Blood Count 5.9 x10^3/uL (4.0-11.0) Red Blood Count 3.44 x10^6/uL (3.50-5.40) Hemoglobin 9.4 g/dL (12.0-15.5) Hematocrit 29.9 % (36.0-47.0) Mean Corpuscular Volume 87 fL (79-100) Mean Corpuscular Hemoglobin 27 pg (25-35) Mean Corpuscular Hemoglobin Concent 32 g/dL (31-37) Red Cell Distribution Width 19.1 % (11.5-14.5) Platelet Count 162 x10^3/uL (140-400) Neutrophils (%) (Auto) 73 % (31-73) Lymphocytes (%) (Auto) 18 % (24-48) Monocytes (%) (Auto) 5 % (0-9) Eosinophils (%) (Auto) 3 % (0-3) Basophils (%) (Auto) 1 % (0-3) Neutrophils # (Auto) 4.4 x10^3uL (1.8-7.7) Lymphocytes # (Auto) 1.1 x10^3/uL (1.0-4.8) Monocytes # (Auto) 0.3 x10^3/uL (0.0-1.1) Eosinophils # (Auto) 0.2 x10^3/uL (0.0-0.7) Basophils # (Auto) 0.1 x10^3/uL (0.0-0.2) Medications Medications Medications reviewed and reconciled for discharge. Brief hospital course Brief hospital course This 46 year old female who presented with chest pain was admitted. The following is a summary of her treatment: chest pain non cardiac r/t CHF cardiac consult Troponin and EKG negative r/t CHF A/C CHF Chronic issue -regulated by HD-low BP so fluid removal guided by BP Admit wt 282.06 03/20 272.9 cough r/t CHF-improved to dialyze today then DC home DM II FSBS SSI Lantus 50 units in AM Novolog 45u tid ac scheduled Glucose 121-218 DVT/GI prophylaxis SCD Eliquis PPI BMP pending 03/20 She is to dialyze today and then may discharge home if consultants in agreement. Please refer to DC orders. Home Health note signed and faxed from office 03/19/17. For more details regarding the past history, family history, social history, surgical history and other details, please refer to History and Physical. Subjective pain continues chest wall anterior, no further pain with breathing Objective no distress Vitals Vital Signs Date Time Temp Pulse Resp B/P (MAP) Pulse Ox O2 Delivery O2 Flow Rate FiO2 03/20/17 05:03 95 Nasal Cannula 2.0 03/20/17 03:00 97.7 99 18 100/61 (74) 97.7 Physical Exam General appearance - alert,well appearing, and in no distress Mental Status - alert, oriented to person, place, and time, affect appropriate to mood Head - normal Chest - clear to auscultation, no wheezes, rales or rhonchi, chest wall tenderness anterior Heart - S1 and S2 normal Abdomen - soft, nontender, nondistended, obese, BS + Neurological - no acute focal neurological deficit noted Musculoskeletal - no muscular tenderness noted Extremities - +3R +2L lower extremities Skin - warm and dry Medications Medications reviewed. Allergy Allergies Coded Allergies Type Severity Reaction Last Updated Verified Penicillins Allergy Severe causes swelling of throat 01/15/17 Yes Sulfa (Sulfonamide Antibiotics) Allergy Severe causes throat to swell 01/15/17 Yes amoxicillin Allergy Severe causes swelling of throat 01/15/17 Yes clarithromycin Allergy Severe causes throat to swell 01/15/17 Yes codeine Allergy Severe "closed up my throat and itching" 01/31/17 Yes hydrocodone Allergy Severe "closes up my throat and itching" 01/31/17 Yes silver sulfadiazine Allergy Severe Rash 01/15/17 Yes oxycodone Allergy Intermediate 01/15/17 Yes tramadol Allergy Intermediate Nausea and Vomiting 01/15/17 Yes I S O L A T I O N *CONTACT* Allergy Unknown 01/15/17 Yes Follow up Wednesday next week with Dr. Singh or Jony Disposition: Home health services Comments Discharge Management - 35 minutes. For other details please refer to discharge instructions CHELE SINGH MD 03/20/17 0851: IM DISCHARGE & PROGRESS NOTES Brief hospital course Brief hospital course SAO2 65% yesterday- she was not discharged yesterday and would benefit from extra dialysis today. Doing better today.see in office in 3 days. The patient was seen and examined by me. Chart reviewed and plan of care formulated. Discussed with, reviewed and agree with TIER LIFT TRUCK OPERATOR's notes, plan of care and orders with modifications as necessary. Discharge Management - 35 minutes. YVONNE LAYNE APRN Mar 20, 2017 05:24 CHELE SINGH MD Mar 20, 2017 08:51
[2017-03-20 07:00] VITALS: BP 108/62
[2017-03-20] MEDS: INSULIN ASPART 300 UNITS/3 ML INSULN.PEN SQ SCH ×4 (07:30→11:30)
[2017-03-20] MEDS: IPRATRPIUM/ALBUTEROL 0.5/2.5MG 3 ML NEBU. NEB SCH ×2 (07:37→11:38)
[2017-03-20] MEDS: MAGNESIUM OXIDE 400 MG TABLET PO SCH (08:15)
[2017-03-20 08:16] VITALS: BP 108/62
[2017-03-20] MEDS: ASPIRIN ENTERIC COATED 81 MG TABLET.DR. PO SCH (08:16)
[2017-03-20] MEDS: CARVEDILOL 3.125 MG TABLET. PO SCH (08:16)
[2017-03-20] MEDS: ASCORBIC ACID 500 MG TABLET PO SCH (08:16)
[2017-03-20] MEDS: APIXABAN 5 MG TABLET. PO SCH (08:16)
[2017-03-20] MEDS: VENLAFAXINE XR 37.5 MG CAP.ER.24H. PO SCH (08:16)
[2017-03-20] MEDS: METOCLOPRAMIDE 10 MG TABLET. PO SCH ×2 (08:17→13:07)
[2017-03-20] MEDS: INSULIN DETEMIR 300 UNITS/3 ML INSULN.PEN. SQ SCH (08:24)
[2017-03-20] MEDS ORDERED: IV NORMAL SALINE 1000ML BAG 1,000 ML IV PRN ×2 (09:28)
[2017-03-20] MEDS ORDERED: ALBUMIN HUMAN 25% 200 ML IV ONE (09:30)
[2017-03-20] MEDS ORDERED: DIALYSIS PATIENT. MC PRN (09:30)
[2017-03-20] MEDS ORDERED: 0.9 % SODIUM CHLORIDE 10 ML DISP.SYRIN. IV PRN ×2 (09:30)
[2017-03-20] MEDS ORDERED: diphenhydrAMINE 50 MG/ML VIAL IV PRN ×2 (09:30)
[2017-03-20] MEDS ORDERED: INSU100V31 SQ (13:29)
--- NOTE | 2017-03-20 13:58 | PDOC ---
PROGRESS NOTES Subjective Subjective SEEN IN FOLLOW UP OF ESRD Objective Objective Vital Signs Date Time Temp Pulse Resp B/P (MAP) Pulse Ox O2 Delivery O2 Flow Rate FiO2 03/20/17 08:16 95 108/62 03/20/17 08:00 Nasal Cannula 3.0 03/20/17 07:40 92 03/20/17 07:00 97.5 16 97.5 Intake and Output 03/20/17 07:00 Intake Total 1480 ml Output Total 500 ml Balance 980 ml Intake Oral 1480 ml Output Urine Total 500 ml Physical Exam Abdomen: Normal bowel sounds, Soft, No tenderness, No hepatosplenomegaly, No masses Heart: Regular rate, Normal S1, Normal S2, No murmurs, Gallops Extremities: No clubbing, No cyanosis, No edema, Normal pulses, No tenderness/ swelling General: Alert, Oriented X3, Cooperative, No acute distress Lungs: Clear to auscultation, Normal air movement Psych/Mental Status: Mental status NL, Mood NL Diagnosis RENAL FAILURE: ESRD Assessment Assessment Problems Medical Problems: (1) Chest pain Status: Acute Plan Plan of Care DIALYSIS TODAY AND TOLERATED WELL Comment Review of Relevant I have reviewed the following items melvi (where applicable) has been applied. Labs Laboratory Tests Test 03/18/17 15:45 03/18/17 21:11 03/19/17 00:02 03/19/17 05:00 White Blood Count 6.6 x10^3/uL (4.0-11.0) 7.9 x10^3/uL (4.0-11.0) Red Blood Count 3.80 x10^6/uL (3.50-5.40) 3.44 x10^6/uL (3.50-5.40) Hemoglobin 10.6 g/dL (12.0-15.5) 9.5 g/dL (12.0-15.5) Hematocrit 32.9 % (36.0-47.0) 29.7 % (36.0-47.0) Mean Corpuscular Volume 87 fL (79-100) 86 fL (79-100) Mean Corpuscular Hemoglobin 28 pg (25-35) 28 pg (25-35) Mean Corpuscular Hemoglobin Concent 32 g/dL (31-37) 32 g/dL (31-37) Red Cell Distribution Width 19.4 % (11.5-14.5) 19.9 % (11.5-14.5) Platelet Count 194 x10^3/uL (140-400) 195 x10^3/uL (140-400) Neutrophils (%) (Auto) 76 % (31-73) 78 % (31-73) Lymphocytes (%) (Auto) 17 % (24-48) 15 % (24-48) Monocytes (%) (Auto) 4 % (0-9) 4 % (0-9) Eosinophils (%) (Auto) 2 % (0-3) 3 % (0-3) Basophils (%) (Auto) 1 % (0-3) 1 % (0-3) Neutrophils # (Auto) 5.0 x10^3uL (1.8-7.7) 6.1 x10^3uL (1.8-7.7) Lymphocytes # (Auto) 1.1 x10^3/uL (1.0-4.8) 1.2 x10^3/uL (1.0-4.8) Monocytes # (Auto) 0.2 x10^3/uL (0.0-1.1) 0.3 x10^3/uL (0.0-1.1) Eosinophils # (Auto) 0.1 x10^3/uL (0.0-0.7) 0.2 x10^3/uL (0.0-0.7) Basophils # (Auto) 0.1 x10^3/uL (0.0-0.2) 0.1 x10^3/uL (0.0-0.2) Prothrombin Time 15.2 SEC (11.7-14.0) Prothromb Time International Ratio 1.3 (0.8-1.1) Sodium Level 142 mmol/L (136-145) 143 mmol/L (136-145) Potassium Level 3.5 mmol/L (3.5-5.1) 3.9 mmol/L (3.5-5.1) Chloride Level 104 mmol/L (98-107) 106 mmol/L (98-107) Carbon Dioxide Level 32 mmol/L (21-32) 30 mmol/L (21-32) Anion Gap 6 (6-14) 7 (6-14) Blood Urea Nitrogen 13 mg/dL (7-20) 16 mg/dL (7-20) Creatinine 2.1 mg/dL (0.6-1.0) 2.4 mg/dL (0.6-1.0) Estimated GFR (Cockcroft-Gault) 25.2 21.6 Glucose Level 282 mg/dL (70-99) 141 mg/dL (70-99) Calcium Level 8.4 mg/dL (8.5-10.1) 8.1 mg/dL (8.5-10.1) Total Bilirubin 0.5 mg/dL (0.2-1.0) Direct Bilirubin 0.1 mg/dL (0.0-0.2) Aspartate Amino Transf (AST/SGOT) 9 U/L (15-37) Alanine Aminotransferase (ALT/SGPT) 10 U/L (14-59) Alkaline Phosphatase 105 U/L (46-116) Creatine Kinase 42 U/L (26-192) Creatine Kinase MB (Mass) 0.5 ng/mL (0.0-3.6) Creatine Kinase MB Relative Index 1.2 % (0-4) Troponin I Quantitative 0.021 ng/mL (0.000-0.055) 0.022 ng/mL (0.000-0.055) 0.020 ng/mL (0.000-0.055) SJ-Mkg-C-Type Natriuretic Peptide 5321 pg/mL (0-124) Total Protein 7.3 g/dL (6.4-8.2) Albumin 2.8 g/dL (3.4-5.0) Lipase 97 U/L (73-393) Glucose (Fingerstick) 187 mg/dL (70-99) Hepatitis B Surface Antigen Negative (Negative) Hepatitis B Surface Antibody Non reactive (.) Test 03/19/17 07:55 03/19/17 13:13 03/19/17 16:12 03/19/17 21:10 Glucose (Fingerstick) 153 mg/dL (70-99) 121 mg/dL (70-99) 173 mg/dL (70-99) 218 mg/dL (70-99) Test 03/20/17 03:50 03/20/17 07:06 03/20/17 13:03 White Blood Count 5.9 x10^3/uL (4.0-11.0) Red Blood Count 3.44 x10^6/uL (3.50-5.40) Hemoglobin 9.4 g/dL (12.0-15.5) Hematocrit 29.9 % (36.0-47.0) Mean Corpuscular Volume 87 fL (79-100) Mean Corpuscular Hemoglobin 27 pg (25-35) Mean Corpuscular Hemoglobin Concent 32 g/dL (31-37) Red Cell Distribution Width 19.1 % (11.5-14.5) Platelet Count 162 x10^3/uL (140-400) Neutrophils (%) (Auto) 73 % (31-73) Lymphocytes (%) (Auto) 18 % (24-48) Monocytes (%) (Auto) 5 % (0-9) Eosinophils (%) (Auto) 3 % (0-3) Basophils (%) (Auto) 1 % (0-3) Neutrophils # (Auto) 4.4 x10^3uL (1.8-7.7) Lymphocytes # (Auto) 1.1 x10^3/uL (1.0-4.8) Monocytes # (Auto) 0.3 x10^3/uL (0.0-1.1) Eosinophils # (Auto) 0.2 x10^3/uL (0.0-0.7) Basophils # (Auto) 0.1 x10^3/uL (0.0-0.2) Sodium Level 142 mmol/L (136-145) Potassium Level 4.1 mmol/L (3.5-5.1) Chloride Level 105 mmol/L (98-107) Carbon Dioxide Level 29 mmol/L (21-32) Anion Gap 8 (6-14) Blood Urea Nitrogen 13 mg/dL (7-20) Creatinine 2.1 mg/dL (0.6-1.0) Estimated GFR (Cockcroft-Gault) 25.2 Glucose Level 165 mg/dL (70-99) Calcium Level 8.5 mg/dL (8.5-10.1) Glucose (Fingerstick) 131 mg/dL (70-99) 57 mg/dL (70-99) Laboratory Tests Test 03/19/17 16:12 03/19/17 21:10 03/20/17 03:50 03/20/17 07:06 Glucose (Fingerstick) 173 mg/dL (70-99) 218 mg/dL (70-99) 131 mg/dL (70-99) White Blood Count 5.9 x10^3/uL (4.0-11.0) Red Blood Count 3.44 x10^6/uL (3.50-5.40) Hemoglobin 9.4 g/dL (12.0-15.5) Hematocrit 29.9 % (36.0-47.0) Mean Corpuscular Volume 87 fL (79-100) Mean Corpuscular Hemoglobin 27 pg (25-35) Mean Corpuscular Hemoglobin Concent 32 g/dL (31-37) Red Cell Distribution Width 19.1 % (11.5-14.5) Platelet Count 162 x10^3/uL (140-400) Neutrophils (%) (Auto) 73 % (31-73) Lymphocytes (%) (Auto) 18 % (24-48) Monocytes (%) (Auto) 5 % (0-9) Eosinophils (%) (Auto) 3 % (0-3) Basophils (%) (Auto) 1 % (0-3) Neutrophils # (Auto) 4.4 x10^3uL (1.8-7.7) Lymphocytes # (Auto) 1.1 x10^3/uL (1.0-4.8) Monocytes # (Auto) 0.3 x10^3/uL (0.0-1.1) Eosinophils # (Auto) 0.2 x10^3/uL (0.0-0.7) Basophils # (Auto) 0.1 x10^3/uL (0.0-0.2) Sodium Level 142 mmol/L (136-145) Potassium Level 4.1 mmol/L (3.5-5.1) Chloride Level 105 mmol/L (98-107) Carbon Dioxide Level 29 mmol/L (21-32) Anion Gap 8 (6-14) Blood Urea Nitrogen 13 mg/dL (7-20) Creatinine 2.1 mg/dL (0.6-1.0) Estimated GFR (Cockcroft-Gault) 25.2 Glucose Level 165 mg/dL (70-99) Calcium Level 8.5 mg/dL (8.5-10.1) Test 03/20/17 13:03 Glucose (Fingerstick) 57 mg/dL (70-99) Medications Current Medications Fentanyl Citrate (Fentanyl 2ml Vial) 50 mcg PRN Q15MIN PRN IV PAIN GREATER THAN 3/10 Last administered on 03/18/17 16:55; Start 03/18/17 at 16:30; Stop 03/19 at 08:32; Status DC Aspirin ([place] Aspirin) 325 mg 1X ONCE PO ; Start 03/18/17 at 17:30; Stop at 17:31; Status DC Ondansetron HCl (Zofran) 4 mg PRN Q8HRS PRN IV NAUSEA/VOMITING Last administered on 03/18/17 18:38; Start 03/18/17 at 17:15; Stop 03/19/17 at 08:32; Status DC Morphine Sulfate 2 mg PRN Q2HR PRN IV PAIN Last administered on 03/19/17 07:40 ; Start 03/18/17 at 17:15; Stop 03/19/17 at 08:32; Status DC Nitroglycerin (Nitrostat) 0.4 mg PRN Q5MIN PRN SL CHEST PAIN; Start 03/18/17 at 17:15; Stop 03/19/17 at 08:32; Status DC Fentanyl Citrate (Fentanyl 2ml Vial) 50 mcg PRN Q4HRS PRN IV PAIN GREATER THAN 3/10 Last administered on 03/19/17 20:14; Start 03/19/17 at 08:30 Nitroglycerin (Nitrostat) 0.4 mg PRN Q5MIN PRN SL CHEST PAIN; Start 03/19/17 at 08:30 Acetaminophen (Tylenol) 650 mg PRN Q6HRS PRN PO MILD PAIN / TEMP Last administered on 03/20/17 09:42; Start 03/19/17 at 08:30 Apixaban (Eliquis) 5 mg BID PO Last administered on 03/20/17 08:16; Start 03/19 at 09:00 Ascorbic Acid (Vitamin C) 500 mg DAILY PO Last administered on 03/20/17 08:16 ; Start 03/19/17 at 09:00 Aspirin (Ecotrin) 81 mg DAILY PO Last administered on 03/20/17 08:16; Start at 09:00 Atorvastatin Calcium (Lipitor) 40 mg HS PO Last administered on 03/19/17 20:13 ; Start 03/19/17 at 21:00 Calcium Carbonate/ Glycine (Tums) 500 mg PRN AFTMEALHC PRN PO INDIGESTION; Start 03/19/17 at 08:30 Carvedilol (Coreg) 3.125 mg BIDWMEALS PO Last administered on 03/20/17 08:16; Start 03/19/17 at 09:00 Darbepoetin Bacilio (Aranesp) 60 mcg We SQ ; Start 03/24/17 at 21:00 Fentanyl (Duragesic 50mcg/ Hr Patch) 1 patch Q3DAYS TD Last administered on 03/19 13:31; Start 03/19/17 at 09:00 Albuterol/ Ipratropium (Duoneb) 3 ml RTQID NEB Last administered on 03/20/17 07:37; Start 03/19/17 at 09:00 Magnesium Hydroxide (Milk Of Magnesia) 2,400 mg PRN DAILY PRN PO CONSTIPATION; Start 03/19/17 at 08:30 Magnesium Oxide (Magnesium Oxide) 400 mg TID PO Last administered on 03/20/17 08:15; Start 03/19/17 at 09:00 Metoclopramide HCl (Reglan) 5 mg TIDAC PO Last administered on 03/20/17 13:07 ; Start 03/19/17 at 11:30 Nitroglycerin (Nitrostat) 0.4 mg PRN Q5MIN PRN SL CHEST PAIN; Start 03/19/17 at 08:30; Stop 03/19/17 at 20:38; Status DC Venlafaxine HCl (Effexor Xr) 37.5 mg DAILY PO Last administered on 03/20/17 08 :16; Start 03/19/17 at 09:00 Hydromorphone HCl (Dilaudid) 0.4 mg PRN Q4HRS PRN IVP PAIN Last administered on 03/20/17 04:33; Start 03/19/17 at 08:30 Insulin Aspart (NovoLOG) 0-8 TIDAC SQ Last administered on 03/19/17 17:02; Start 03/19/17 at 09:00 Sodium Chloride 1,000 ml @ 1,000 mls/hr Q1H PRN IV hypotension; Start 03/19/17 at 08:46; Stop 03/19/17 at 14:45; Status DC Albumin Human 200 ml @ 200 mls/hr 1X STAT IV Last administered on 03/19/17 09 :25; Start 03/19/17 at 08:54; Stop 03/19/17 at 09:53; Status DC Diphenhydramine HCl (Benadryl) 25 mg 1X PRN PRN IV ITCHING; Start 03/19/17 at 09 :00; Stop 03/20/17 at 08:59; Status DC Diphenhydramine HCl (Benadryl) 25 mg 1X PRN PRN IV ITCHING; Start 03/19/17 at 09 :00; Stop 03/20/17 at 08:59; Status DC Info (PHARMACY MONITORING -- do not chart) 1 each PRN DAILY PRN MC SEE COMMENTS ; Start 03/19/17 at 09:00 Insulin Detemir (Levemir) 50 units DAILY08 SQ Last administered on 03/20/17 08 :24; Start 03/19/17 at 09:30 Insulin Aspart (NovoLOG) 45 units TIDAC SQ Last administered on 03/20/17 08:24 ; Start 03/19/17 at 11:30 Info (Anti-Coagulation Monitoring By Pharmacy) 1 each PRN DAILY PRN MC SEE COMMENTS Last administered on 03/20/17 11:30; Start 03/19/17 at 20:45 Sodium Chloride 1,000 ml @ 1,000 mls/hr Q1H PRN IV hypotension; Start 03/20/17 at 09:28; Stop 03/20/17 at 15:27 Albumin Human 200 ml @ 200 mls/hr 1X ONCE IV Last administered on 03/20/17 10:06; Start 03/20/17 at 09:30; Stop 03/20/17 at 10:29; Status DC Diphenhydramine HCl (Benadryl) 25 mg 1X PRN PRN IV ITCHING; Start 03/20/17 at 09:30; Stop 03/21/17 at 09:29 Diphenhydramine HCl (Benadryl) 25 mg 1X PRN PRN IV ITCHING; Start 03/20/17 at 09:30; Stop 03/21/17 at 09:29 Sodium Chloride (Normal Saline Flush) 10 ml 1X PRN PRN IV AP catheter pack; Start 03/20/17 at 09:30; Stop 03/21/17 at 09:29 Sodium Chloride (Normal Saline Flush) 10 ml 1X PRN PRN IV LINUX SYSTEMS ENGINEER catheter pack; Start 03/20/17 at 09:30; Stop 03/21/17 at 09:29 Sodium Chloride 1,000 ml @ 400 mls/hr Q2H30M PRN IV PATENCY; Start 03/20/17 at 09:28; Stop 03/20/17 at 21:27 Info (PHARMACY MONITORING -- do not chart) 1 each PRN DAILY PRN MC SEE COMMENTS ; Start 03/20/17 at 09:30; Status UNV Active Scripts Active Dilaudid (Hydromorphone Hcl) 4 Mg Tablet 1 Tab PO PRN Q6HRS PRN Effexor Xr (Venlafaxine Hcl) 37.5 Mg Cap.er.24h 30 Cap PO DAILY Tylenol (Acetaminophen) 325 Mg Tablet 650 Mg PO PRN Q6HRS PRN Metoclopramide Hcl 10 Mg Tablet 5 Mg PO TIDAC Aranesp Syringe (Darbepoetin Bacilio In Polysorbat) 60 Mcg/0.3 Ml Disp.syrin 60 Mcg SQ WEEKLYHS Calcium Carbonate 200 Mg Tab.chew 500 Mg PO PRN AFTMEALHC PRN Vitamin C (Ascorbic Acid) 500 Mg Tablet 500 Mg PO DAILY Eliquis (Apixaban) 5 Mg Tablet 5 Mg PO BID FENTANYL 50mcg/hr (Fentanyl) 1 Each Patch.td72 1 Patch TD Q3DAYS Coreg (Carvedilol) 3.125 Mg Tablet 1 Tab PO BID Zofran Odt (Ondansetron) 4 Mg Tab.rapdis 1 Tab SL PRN Q6HRS PRN Milk Of Magnesia (Magnesium Hydroxide) 400 Mg/5 Ml Oral.susp 2,400 Mg PO PRN DAILY PRN Duoneb 0.5-3(2.5) Mg/3 Ml (Albuterol/Ipratropium) 3 Ml Ampul.neb 3 Ml NEB RTQID Reported Novolog (Insulin Aspart) 100 Unit/1 Ml Vial 0 SQ TIDWMEALS Novolog (Insulin Aspart) 100 Unit/1 Ml Cartridge 45 Unit SQ Lantus Solostar (Insulin Glargine,Hum.rec.anlog) 100 Unit/1 Ml Insuln.pen 50 Unit SQ QHS Magnesium Oxide 400 Mg Tablet 400 Mg PO TID Aspir 81 (Aspirin) 81 Mg Tablet.dr 81 Mg PO DAILY Nitrostat (Nitroglycerin) 0.4 Mg Tab.subl 0.4 Mg SL PRN Q5MIN PRN Atorvastatin Calcium 40 Mg Tablet 40 Mg PO HS Omeprazole 20 Mg Capsule.dr 20 Mg PO HS Vitals/I & O Vital Sign - Last 24 Hours 03/19/17 03/19/17 03/19/17 03/19/17 15:00 15:33 15:52 16:22 Temp 98.0 98.0 Pulse 95 Resp 16 18 18 B/P (MAP) 93/54 (67) Pulse Ox 94 O2 Delivery Nasal Cannula Nasal Cannula Nasal Cannula O2 Flow Rate 2.0 3.0 2.0 03/19/17 03/19/17 03/19/17 03/19/17 16:33 17:31 19:00 20:00 Temp 97.7 97.7 Pulse 95 92 Resp 18 18 B/P (MAP) 93/54 106/65 (79) Pulse Ox 90 O2 Delivery Nasal Cannula Nasal Cannula Nasal Cannula O2 Flow Rate 2.0 2.0 3.0 03/19/17 03/19/17 03/19/17 03/20/17 20:14 23:00 23:12 03:00 Temp 98.1 97.7 98.1 97.7 Pulse 88 99 Resp 18 18 B/P (MAP) 106/62 (77) 100/61 (74) Pulse Ox 93 95 O2 Delivery Nasal Cannula Nasal Cannula Nasal Cannula Nasal Cannula O2 Flow Rate 3.0 2.0 2.0 2.0 03/20/17 03/20/17 03/20/17 03/20/17 04:33 05:03 07:00 07:40 Temp 97.5 97.5 Pulse 95 Resp 16 B/P (MAP) 108/62 (77) Pulse Ox 95 95 95 92 O2 Delivery Nasal Cannula Nasal Cannula Nasal Cannula Nasal Cannula O2 Flow Rate 2.0 2.0 3.0 3.0 03/20/17 03/20/17 08:00 08:16 Pulse 95 B/P (MAP) 108/62 O2 Delivery Nasal Cannula O2 Flow Rate 3.0 Intake and Output 03/19/17 03/19/17 03/20/17 15:00 23:00 07:00 Intake Total 300 ml 1180 ml Output Total 500 ml 0 ml Balance 300 ml 680 ml 0 ml RUTHANN CALDERON MD Mar 20, 2017 13:58
[2017-03-24] MEDS ORDERED: DARBEPOETIN ALFA 60 MCG/0.3 ML DISP.SYRIN. SQ SCH (21:00)
== END 2017-03-20 14:25 | disposition home health service (06) ==
LOC: ER 15:31 → 5 NORTH 17:00
PROVIDERS: ADMIT Internal Medicine; ATTEND Internal Medicine
DX: R07.89 Other chest pain (principal); M94.0 Chondrocostal junction syndrome [Tietze]; I50.23 Acute on chronic systolic (congestive) heart failure; N18.6 End stage renal disease; Z99.2 Dependence on renal dialysis; E11.22 Type 2 diabetes mellitus with diabetic chronic kidney disease; Z86.711 Personal history of pulmonary embolism; F32.9 Major depressive disorder, single episode, unspecified; F41.9 Anxiety disorder, unspecified; E11.40 Type 2 diabetes mellitus with diabetic neuropathy, unspecified; E78.5 Hyperlipidemia, unspecified; I12.0 Hypertensive chronic kidney disease with stage 5 chronic kidney disease or end stage renal disease; I25.2 Old myocardial infarction; I25.10 Atherosclerotic heart disease of native coronary artery without angina pectoris; Z86.73 Personal history of transient ischemic attack (TIA), and cerebral infarction without residual deficits; K21.9 Gastro-esophageal reflux disease without esophagitis; G89.29 Other chronic pain; D64.9 Anemia, unspecified; E46 Unspecified protein-calorie malnutrition; E66.9 Obesity, unspecified; E78.00 Pure hypercholesterolemia, unspecified; I73.9 Peripheral vascular disease, unspecified; J44.9 Chronic obstructive pulmonary disease, unspecified; Z79.4 Long term (current) use of insulin; Z82.49 Family history of ischemic heart disease and other diseases of the circulatory system; Z83.3 Family history of diabetes mellitus; Z86.718 Personal history of other venous thrombosis and embolism; Z95.5 Presence of coronary angioplasty implant and graft
CPT/HCPCS: 36415; 71010; 80048; 80076; 82553; 82962; 83690; 83880; 84484; 85027; 85610; 86706; 87340; 87341; 87641; 93005; 94250; 94640; 94760; 96365; 96366; 96372; 96375; 96376; 99285; G0378; J1170; J1815; J2270; J2405; J3010; J7620; J8597; P9046; G0379

== ENCOUNTER → 2017-03-18 | Outpatient (CLI) | payer MEDICARE, MEDICAID ==
[2017-02-25 13:03] VITALS: BP 109/77
== END | disposition home or self-care (01) ==
LOC: PMGWOUND 09:30
PROVIDERS: ATTEND Emergency Medicine Undersea and Hyperbaric Medicine
DX: E11.621 Type 2 diabetes mellitus with foot ulcer (principal); L97.421 Non-pressure chronic ulcer of left heel and midfoot limited to breakdown of skin; F41.9 Anxiety disorder, unspecified; J44.9 Chronic obstructive pulmonary disease, unspecified; K21.9 Gastro-esophageal reflux disease without esophagitis; E78.5 Hyperlipidemia, unspecified; F32.9 Major depressive disorder, single episode, unspecified; I25.2 Old myocardial infarction; E78.00 Pure hypercholesterolemia, unspecified; E11.40 Type 2 diabetes mellitus with diabetic neuropathy, unspecified; E66.01 Morbid (severe) obesity due to excess calories; Z68.42 Body mass index [BMI] 45.0-49.9, adult; E11.51 Type 2 diabetes mellitus with diabetic peripheral angiopathy without gangrene; M19.90 Unspecified osteoarthritis, unspecified site; I13.2 Hypertensive heart and chronic kidney disease with heart failure and with stage 5 chronic kidney disease, or end stage renal disease; E11.22 Type 2 diabetes mellitus with diabetic chronic kidney disease; N18.6 End stage renal disease; I50.23 Acute on chronic systolic (congestive) heart failure; Z99.2 Dependence on renal dialysis; Z95.1 Presence of aortocoronary bypass graft; Z85.41 Personal history of malignant neoplasm of cervix uteri; Z86.718 Personal history of other venous thrombosis and embolism; Z87.891 Personal history of nicotine dependence; Z86.73 Personal history of transient ischemic attack (TIA), and cerebral infarction without residual deficits; Z86.711 Personal history of pulmonary embolism
CPT/HCPCS: 99213

== ENCOUNTER 2017-04-29 09:15 | Inpatient (IN) | payer MEDICARE, MEDICAID ==
[~2017-04-29] VITALS: Ht 171.4 cm; Wt 119.4 kg
[~2017-04-29 09:15] MED LIST changes: +HYDR4TAB45 PO; +INSU100I13 SQ; +INSU100V31 SQ
[2017-04-29] MEDS ORDERED: MORPHINE SULFATE 10 MG/ML VIAL. IM ONE (10:00)
[2017-04-29 11:20] LABS: CALCIUM 8.1 mg/dL (8.5-10.1); CREATININE 1.8 mg/dL (0.6-1.0); GFR 30.2; MAGNESIUM 1.7 mg/dL (1.8-2.4)
[2017-04-29 11:28] LABS: BASO # 0.1 x10^3/uL (0.0-0.2); BASO % 1 % (0-3); EOS % 2 % (0-3); HEMATOCRIT 37.8 % (36.0-47.0); HEMOGLOBIN 11.9 g/dL (12.0-15.5); LYMPH # 1.2 x10^3/uL (1.0-4.8); LYMPH % 13 % (24-48); MEAN CORPUSCULAR HEMOGLOBIN 28 pg (25-35); MEAN CORPUSCULAR HGB CONC 32 g/dL (31-37); MEAN CORPUSCULAR VOLUME 89 fL (79-100); MONO % 4 % (0-9); NEUT % 80 % (31-73); PLATELET COUNT 157 x10^3/uL (140-400); RED BLOOD COUNT 4.25 x10^6/uL (3.50-5.40); RED CELL DISTRIBUTION WIDTH 20.7 % (11.5-14.5); WHITE BLOOD COUNT 9.1 x10^3/uL (4.0-11.0)
[2017-04-29 11:33] LABS: CKMB MASS 1.1 ng/mL (0.0-3.6); CREATINE KINASE 46 U/L (26-192)
--- NOTE | 2017-04-29 11:33 | EKG ---
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
[2017-04-29 11:38] LABS: INR 1.3 (0.8-1.1)
[2017-04-29] MEDS: MORPHINE SULFATE 4 MG/ML DISP.SYRIN. IV/SQ PRN ×2 (11:57→14:54)
[2017-04-29 12:02] LABS: ANISOCYTOSIS SLIGHT; PLT ESTIMATE ADEQUATE (ADEQUATE)
--- NOTE | 2017-04-29 13:10 | ACF ---
Admit Criteria Forms Admit Criteria Forms Admit Criteria Forms UROLOGIC DISEASE GR Clinical Indications for Admission to Inpatient Care (Place ' X' for any and all applicable criteria): Hospital admission is needed for appropriate care of the patient because of 1 or more of the following: [ ]I. New-onset Reduced urine output, or hydronephrosis remaining after emergency or observation level care (as appropriate ) [X ]II. Renal disease needing inpatient care indicated by 1 or more of the following(2)(3)(4): [X ]a) Acute renal failure [ ]b) Significant uremic complications [ ]c) Acute kidney injury (that does not qualify as Acute renal failure ) requiring inpatient care indicated by ALL of the following(5)(6)(7)(8) (9): [ ]i) Worsening clinical status (eg, rising creatinine) despite outpatient and observation care treatment (eg, hydration) [ ]ii) Acute kidney injury indicated by 1 or more of the following: [ ]1) 2-fold or more rise in serum creatinine from baseline [ ]2) Reduction of more than 50% in estimated glomerular filtration rate from baseline [ ]3) Urine output less than 0.5 mL/kg/hr for 12 hours despite adequate volume status [ ]d) Systemic cause (eg, Goodpasture syndrome ) needing inpatient care [ ]e) Rapidly progressive renal disease needing inpatient care (eg, plasmapheresis, immunosuppression ) Anasarca needing inpatient care [ ]f) Hemoptysis [ ]g) Hemolysis, thrombosis, or infraction [ ]h) Anasarca needing inpatient care [ ]III. New-onset or uncontrolled nephrogenic diabetes insipidus [ ]IV. Urologic infection requiring inpatient care as indicated by 1 or more of the following(10)(11)(12): [ ]a) Hemodynamic instability [ ]b) Dehydration that is severe or persistent [ ]c) Failure of outpatient treatment [ ]d) Shivam's gangrene [ ]e) Urinary obstruction [ ]f) Immunocompromised state (eg, chronic steroid use ) [ ]g) Known renal or urologic abnormalities(eg, indwelling catheter, structural abnormalities ) [ ]h) Recent urologic manipulation or procedure Urinary obstruction [ ]i) Abscess requiring drainage Immunocompromised state [ ]V. Acute urinary retention requiring inpatient management as indicated by ANY ONE of the following(1)(13): [ ]a) Retention cannot be alleviated via emergency or observation level care (eg, urinary catheter placement) [ ]b) Hemodynamic instability [ ]c) Acute neurologic etiology (eg, cauda equina) [ ]d) Dehydration or other complications not manageable with emergency or observation level care [ ]e) Acute kidney injury (that does not qualify as Acute renal failure ) requiring inpatient care indicated by ALL of the following(5)(6)(7)(8) (9): [ ]i) Acute kidney injury indicated by ANY ONE of the following: [ ]1) 2-fold or more rise in serum creatinine from baseline [ ]2) Reduction of more than 50% in estimated glomerular filtration rate from baseline [ ]ii) Worsening clinical status (eg, rising creatinine) despite outpatient and observation care treatment (eg, hydration) [ ]. Gross hematuria requiring inpatient management as indicated by ANY ONE of the following(1)(2): [ ]a) Evidence of renal obstruction [ ]b) Reduced urine output [ ]c) Clot retention after urinary catheterization and irrigation [ ]d) Severe Anemia [ ]e) Systemic cause needing inpatient treatment (eg, Goodpasture syndrome) [ ]VII. Priapism not responsive to emergency or observation care treatment [ ]VII. Scrotal, testicular, or epididymal disorder requiring inpatient care indicated by 1 or more of the following(1)(14)(15)(16): [ ]a) Scrotal edema or infection not manageable with emergency or observation level care [ ]b) Orchitis not manageable with emergency or observation level care [ ]c) Epididymitis not manageable with emergency or observation level of care [ ]d) Other scrotal, testicular, or epididymal disorder (eg, infection, inflammation) not manageable with emergency or observation level care [ ]IX. Complications of transplanted kidney indicated by 1 or more of the following [ ]a) Acute graft rejection requiring inpatient management (eg, intravenous immunosuppression) [ ]b) Acute kidney injury indicated by ALL of the following i) Acute kidney injury indicated by 1 or more of the following 1) 2-fold or more rise in serum creatinine from baseline 2) Reduction of more than 50% in estimated glomerular filtration rate from baseline 3) Urine output less than 0.5 mL/kg/hr for 12 hours despite adequate volume status ii) Kidney injury too severe or not responsive to outpatient and observation care treatment (eg, hydration) [ ]c) Infection requiring inpatient management (eg, Hemodynamic instability, need for intravenous antimicrobial treatment) [ ]d) Other complication of transplanted kidney requiring patient management (eg, severe diarrhea leading to malabsorption) [ ]X. Trauma to renal, genital, or urologic system requiring inpatient medical care [ ]XI. Urologic Disease condition, symptom, or finding for which emergency and observation care have failed or are not considered appropriate. The original [employer] content created by [employer] has been revised. The portions of the content which have been revised are identified through the use of italic text or in bold, and [facility] has neither reviewed nor approved the modified material. All other unmodified content is copyright [facility]. Please see references footnoted in the original [employer] edition 2016 GREG STILES Apr 29, 2017 13:10
--- NOTE | 2017-04-29 13:59 | RAD ---
Single view of the Chest 04/29/2017 12:06 PM Indication: chest pain. Pain at dialysis catheter site Comparison: Chest radiograph March 18, 2017 Findings: There is a right internal jugular dura max dialysis catheter with tip at the cavoatrial junction. No pneumothorax or definitive pleural effusion is seen. Mild central vascular congestion mild cardiomegaly are similar prior exams. No new acute osseous changes are identified. Impression: 1. Grossly unremarkable appearance of right internal jugular tunnel dialysis catheter 2. Mild central vascular congestion and cardiomegaly, similar to comparison exams
[2017-04-29 15:00] VITALS: BP 113/66
[2017-04-29] MEDS ORDERED: fentaNYL 50MCG/HR PATCH 1 PATCH PATCH.TD72 TD SCH (15:30)
[2017-04-29] MEDS ORDERED: ONDANSETRON ODT 4 MG TAB.RAPDIS. PO PRN (15:45)
[2017-04-29] MEDS ORDERED: NITROGLYCERIN SUBLINGUAL 0.4 MG BOTTLE OF 25. SL PRN (15:45)
[2017-04-29] MEDS ORDERED: MAGNESIUM HYDROXIDE 2,400 MG/30 ML ORAL.SUSP. PO PRN (15:45)
[2017-04-29] MEDS ORDERED: ACETAMINOPHEN 325 MG TABLET. PO PRN (15:45)
[2017-04-29] MEDS ORDERED: CALCIUM CARBONATE 500 MG TAB.CHEW PO PRN (15:45)
[2017-04-29] MEDS ORDERED: DEXTROSE 50% 25 GM / 50ML DISP.SYRIN. IV PRN (16:00)
--- NOTE | 2017-04-29 17:35 | PHYS DOC ---
Past Medical History Past Medical History: COPD, CVA, Diabetes-Type II, DVT, GERD, High Cholesterol , Hypertension, NE, Renal Disease, Other Additional Past Medical Histor: PE, CHRONIC BACK PAIN, ENLARGED LIVER Past Surgical History: Angioplasty, Cholecystectomy, , Other Additional Past Surgical Histo: CARDIAC STENT, VENA CAVA FILTER, HERNIA SURG, 4TH & 5TH RIGHT TOE AMP Additional Information: "couple cigarettes a day" Alcohol Use: None Drug Use: None Adult General Chief Complaint Chief Complaint: OTHER COMPLAINTS HPI HPI Patient is a 46 year old female who presents with chest pain and blocked dialysis catheter. Patient has known history of end-stage renal disease, she was unable to complete dialysis yesterday because her dialysis catheter was not working. She was reporting sharp achy diffuse chest pain from her right her chest to her left chest that she attributes to her dialysis catheter. She believes this because patient has had the pain since the dialysis catheter was placed months ago. She denies any new cough, no fevers. Denies street PE or DVT. Review of Systems Review of Systems Constitutional: Denies fever or chills [] Eyes: Denies change in visual acuity, redness, or eye pain [] HENT: Denies nasal congestion or sore throat [] Respiratory: Denies cough or shortness of breath [] Cardiovascular: No additional information not addressed in HPI [] GI: Denies abdominal pain, nausea, vomiting, bloody stools or diarrhea [] : Denies dysuria or hematuria [] Musculoskeletal: Denies back pain or joint pain [] Integument: Denies rash or skin lesions [] Neurologic: Denies headache, focal weakness or sensory changes [] Current Medications Current Medications Current Medications Medications (Trade) Dose Ordered Sig/Ant Start Time Stop Time Status Last Admin Dose Admin Morphine Sulfate 4 mg PRN Q15MIN PRN 04/29/17 10:15 04/30/17 10:14 04/29/17 14:54 4 MG Allergies Allergies Allergies Coded Allergies Type Severity Reaction Last Updated Verified Penicillins Allergy Severe causes swelling of throat 01/15/17 Yes Sulfa (Sulfonamide Antibiotics) Allergy Severe causes throat to swell 01/15/17 Yes amoxicillin Allergy Severe causes swelling of throat 01/15/17 Yes clarithromycin Allergy Severe causes throat to swell 01/15/17 Yes codeine Allergy Severe "closed up my throat and itching" 01/31/17 Yes hydrocodone Allergy Severe "closes up my throat and itching" 01/31/17 Yes silver sulfadiazine Allergy Severe Rash 01/15/17 Yes oxycodone Allergy Intermediate 01/15/17 Yes tramadol Allergy Intermediate Nausea and Vomiting 01/15/17 Yes I S O L A T I O N *CONTACT* Allergy Unknown 01/15/17 Yes Physical Exam Physical Exam Constitutional: Well developed, well nourished, no acute distress, non-toxic appearance. Obese HENT: Normocephalic, atraumatic, bilateral external ears normal, oropharynx moist, no oral exudates, nose normal. [] Eyes: PERRLA, EOMI, conjunctiva normal, no discharge. [] Neck: Normal range of motion, no tenderness, supple, no stridor. [] Cardiovascular:Heart rate regular with regular rhythm, no murmur [] Lungs & Thorax: Bilateral breath sounds clear to auscultation, dialysis catheter in right upper chest without surrounding erythema or drainage, generalized tenderness palpation the anterior chest Abdomen: Bowel sounds normal, soft, no tenderness, no masses, no pulsatile masses. [] Skin: Warm, dry, no erythema, no rash. [] Back: No tenderness, no CVA tenderness. [] Extremities: No tenderness, no cyanosis, no clubbing, ROM intact, no edema. negative Homans bilaterally Neurologic: Alert and oriented X 3, normal motor function, normal sensory function, no focal deficits noted. [] Psychologic: Affect normal, judgement normal, mood normal. [] Current Patient Data Vital Signs Vital Signs Date Time Temp Pulse Resp B/P (MAP) Pulse Ox O2 Delivery O2 Flow Rate FiO2 04/29/17 10:04 82 18 116/62 (80) 96 Nasal Cannula 2.0 04/29/17 09:22 99.4 99.4 EKG EKG 80 bpm, sinus, left axis, QTC 500, QRS 132, OH 232, no ST elevation or depression, biphasis T wave V3, interpreted by me Radiology/Procedures Radiology/Procedures CXR:" Impression: 1. Grossly unremarkable appearance of right internal jugular tunnel dialysis catheter 2. Mild central vascular congestion and cardiomegaly, similar to comparison exams [] Course & Med Decision Making Course & Med Decision Making Pertinent Labs and Imaging studies reviewed. (See chart for details) Patient was given IV pain medication. I spoke with Dr. Toussaint and Dr. Felipe, they recommended admission to the patient's else's catheter can be changed and have the patient dialyzed. Labs for chest pain were performed although it is unlikely that this is ACS is it's been constant for weeks. I spoke with Dr. Johnson who admitted this patient. Consult for IR was placed. Dragon Disclaimer Dragon Disclaimer This electronic medical record was generated, in whole or in part, using a voice recognition dictation system. Departure Departure Impression: Primary Impression: Chest pain Disposition: ADMITTED INPATIENT Condition: STABLE Referrals: CHELE JOHNSON MD (PCP) NAMRATA HENNING MD Apr 29, 2017 17:35
[2017-04-29] MEDS: METOCLOPRAMIDE 10 MG TABLET. PO SCH (18:16)
[2017-04-29] MEDS: CARVEDILOL 3.125 MG TABLET. PO SCH (18:16)
[2017-04-29] MEDS: INSULIN ASPART 300 UNITS/3 ML INSULN.PEN SQ SCH (18:23)
[2017-04-29 19:00] VITALS: BP 114/70
[2017-04-29] MEDS: HYDROmorphone 4 MG TABLET PO PRN (19:45)
[2017-04-29] MEDS: IPRATRPIUM/ALBUTEROL 0.5/2.5MG 3 ML NEBU. NEB SCH (20:00)
[2017-04-29] MEDS ORDERED: INSULIN DETEMIR 300 UNITS/3 ML INSULN.PEN. SQ ONE (20:00)
[2017-04-29] MEDS: MAGNESIUM OXIDE 400 MG TABLET PO SCH (20:49)
[2017-04-29] MEDS: PANTOPRAZOLE 40 MG TABLET.DR. PO SCH (20:49)
[2017-04-29] MEDS: ATORVASTATIN CALCIUM 40 MG TABLET. PO SCH (20:49)
[2017-04-29 23:00] VITALS: BP 113/73
[2017-04-30 07:00] VITALS: BP 107/64
[2017-04-30] MEDS: IPRATRPIUM/ALBUTEROL 0.5/2.5MG 3 ML NEBU. NEB SCH ×4 (07:23→20:00)
[2017-04-30] MEDS: METOCLOPRAMIDE 10 MG TABLET. PO SCH ×3 (07:30→14:57)
[2017-04-30] MEDS: INSULIN ASPART 300 UNITS/3 ML INSULN.PEN SQ SCH ×5 (08:00→17:00)
[2017-04-30] MEDS: MAGNESIUM OXIDE 400 MG TABLET PO SCH ×3 (08:25→21:34)
[2017-04-30] MEDS: ASCORBIC ACID 500 MG TABLET PO SCH (08:25)
[2017-04-30] MEDS: CARVEDILOL 3.125 MG TABLET. PO SCH ×2 (08:27→21:33)
[2017-04-30] MEDS: VENLAFAXINE XR 37.5 MG CAP.ER.24H. PO SCH (08:27)
--- NOTE | 2017-04-30 09:05 | PDOC1 ---
YVONNE LAYNE VETERINARY SCIENCE TEACHER 04/30/17 0905: HISTORY AND PHYSICAL Chief Complaint Chief Complaint This 46 year old female has been admitted with a chief complaint of malfunctioning dialysis catheter. She was brought to the ED from the dialysis center due to not being able to complete dialysis with catheter malfunctioning. CXR in ED mild CHF. EKG SR no acute changes. R sided chest pain is chronic since dialysis catheter placed. She is admitted to medical surgical floor. Past Medical History Cardiovascular: CAD, CHF (systolic EF 25% per CC February 2017), HTN, PR, Hyperlipidemia, Valve insufficiency (MVR and tricuspid regurg ), Other (DVT RLE with h/o DVT/PE anticoagulated, PVD ) Pulmonary: COPD, Pulmonary embolus (chronic anticoagulation ), Other (JENNA with 2-3 L NC -CPAP intolerant ) CENTRAL NERVOUS SYSTEM: CVA, Periperal neuropathy, Other GI: GERD Heme/Onc: Anemia NOS Hepatobiliary: Other Psych: Anxiety, Depression Musculoskeletal: low back pain, Osteoarthritis, Other Renal/: Chronic renal failure (ESRD ) Endocrine: Diabetes (TYpe II insulin peripheral neuropathy ), Hyperparathyroidism (secobndary ), Other Past Surgical History Past Surgical History: Cholecystectomy, , Hernia Repair, Other (PCI/ stent coronary; IVC filter ) Past Family History Family History: Diabetes, Heart Disease, Hypertension Past Social History PSH lives with brother. remote h/o tobacco no ETOH or illicit drugs Review of Symptoms Review of Symptoms A 14 point ROS was completed with the following noted as positive: R sided chest pain chronic Other systems reviewed and negative. Medications Medications reviewed and reconciled. Allergy Allergies Coded Allergies Type Severity Reaction Last Updated Verified Penicillins Allergy Severe causes swelling of throat 01/15/17 Yes Sulfa (Sulfonamide Antibiotics) Allergy Severe causes throat to swell 01/15/17 Yes amoxicillin Allergy Severe causes swelling of throat 01/15/17 Yes clarithromycin Allergy Severe causes throat to swell 01/15/17 Yes codeine Allergy Severe "closed up my throat and itching" 01/31/17 Yes hydrocodone Allergy Severe "closes up my throat and itching" 01/31/17 Yes silver sulfadiazine Allergy Severe Rash 01/15/17 Yes oxycodone Allergy Intermediate 01/15/17 Yes tramadol Allergy Intermediate Nausea and Vomiting 01/15/17 Yes I S O L A T I O N *CONTACT* Allergy Unknown 01/15/17 Yes Physical Exam Physical Exam General appearance - alert,well appearing, and in no distress Mental Status - alert, oriented to person, place, and time, affect appropriate to mood Head - normal Chest - clear to auscultation, no wheezes, rales or rhonchi, symmetric air entry Heart - S1 and S2 normal Abdomen - soft, nontender, nondistended, obese, BS + Neurological - no acute neurological deficit Musculoskeletal - no muscular tenderness noted, chest wall tenderness Extremities - + pedal edema, scaling with chronic venous stasis changes. Skin - warm and dry VTE Prophylaxis Ordered VTE Prophylaxis Devices: No VTE Pharmacological Prophylaxi: Yes Assessment Labs Laboratory Tests Test 04/29/17 10:50 04/29/17 13:32 04/29/17 16:31 04/29/17 21:03 White Blood Count 9.1 x10^3/uL (4.0-11.0) Red Blood Count 4.25 x10^6/uL (3.50-5.40) Hemoglobin 11.9 g/dL (12.0-15.5) Hematocrit 37.8 % (36.0-47.0) Mean Corpuscular Volume 89 fL (79-100) Mean Corpuscular Hemoglobin 28 pg (25-35) Mean Corpuscular Hemoglobin Concent 32 g/dL (31-37) Red Cell Distribution Width 20.7 % (11.5-14.5) Platelet Count 157 x10^3/uL (140-400) Neutrophils (%) (Auto) 80 % (31-73) Lymphocytes (%) (Auto) 13 % (24-48) Monocytes (%) (Auto) 4 % (0-9) Eosinophils (%) (Auto) 2 % (0-3) Basophils (%) (Auto) 1 % (0-3) Neutrophils # (Auto) 7.3 x10^3uL (1.8-7.7) Lymphocytes # (Auto) 1.2 x10^3/uL (1.0-4.8) Monocytes # (Auto) 0.4 x10^3/uL (0.0-1.1) Eosinophils # (Auto) 0.2 x10^3/uL (0.0-0.7) Basophils # (Auto) 0.1 x10^3/uL (0.0-0.2) Platelet Estimate Adequate (ADEQUATE) Anisocytosis Slight Prothrombin Time 15.0 SEC (11.7-14.0) Prothromb Time International Ratio 1.3 (0.8-1.1) Sodium Level 145 mmol/L (136-145) Potassium Level 4.0 mmol/L (3.5-5.1) Chloride Level 107 mmol/L (98-107) Carbon Dioxide Level 30 mmol/L (21-32) Anion Gap 8 (6-14) Blood Urea Nitrogen 23 mg/dL (7-20) Creatinine 1.8 mg/dL (0.6-1.0) Estimated GFR (Cockcroft-Gault) 30.2 Glucose Level 220 mg/dL (70-99) Calcium Level 8.1 mg/dL (8.5-10.1) Magnesium Level 1.7 mg/dL (1.8-2.4) Creatine Kinase 46 U/L (26-192) Creatine Kinase MB (Mass) 1.1 ng/mL (0.0-3.6) Creatine Kinase MB Relative Index % (0-4) Troponin I Quantitative 0.038 ng/mL (0.000-0.055) Glucose (Fingerstick) 140 mg/dL (70-99) 164 mg/dL (70-99) 178 mg/dL (70-99) Test 04/30/17 07:28 Glucose (Fingerstick) 153 mg/dL (70-99) Laboratory Tests Test 04/29/17 10:50 04/29/17 13:32 04/29/17 16:31 04/29/17 21:03 White Blood Count 9.1 x10^3/uL (4.0-11.0) Red Blood Count 4.25 x10^6/uL (3.50-5.40) Hemoglobin 11.9 g/dL (12.0-15.5) Hematocrit 37.8 % (36.0-47.0) Mean Corpuscular Volume 89 fL (79-100) Mean Corpuscular Hemoglobin 28 pg (25-35) Mean Corpuscular Hemoglobin Concent 32 g/dL (31-37) Red Cell Distribution Width 20.7 % (11.5-14.5) Platelet Count 157 x10^3/uL (140-400) Neutrophils (%) (Auto) 80 % (31-73) Lymphocytes (%) (Auto) 13 % (24-48) Monocytes (%) (Auto) 4 % (0-9) Eosinophils (%) (Auto) 2 % (0-3) Basophils (%) (Auto) 1 % (0-3) Neutrophils # (Auto) 7.3 x10^3uL (1.8-7.7) Lymphocytes # (Auto) 1.2 x10^3/uL (1.0-4.8) Monocytes # (Auto) 0.4 x10^3/uL (0.0-1.1) Eosinophils # (Auto) 0.2 x10^3/uL (0.0-0.7) Basophils # (Auto) 0.1 x10^3/uL (0.0-0.2) Platelet Estimate Adequate (ADEQUATE) Anisocytosis Slight Prothrombin Time 15.0 SEC (11.7-14.0) Prothromb Time International Ratio 1.3 (0.8-1.1) Sodium Level 145 mmol/L (136-145) Potassium Level 4.0 mmol/L (3.5-5.1) Chloride Level 107 mmol/L (98-107) Carbon Dioxide Level 30 mmol/L (21-32) Anion Gap 8 (6-14) Blood Urea Nitrogen 23 mg/dL (7-20) Creatinine 1.8 mg/dL (0.6-1.0) Estimated GFR (Cockcroft-Gault) 30.2 Glucose Level 220 mg/dL (70-99) Calcium Level 8.1 mg/dL (8.5-10.1) Magnesium Level 1.7 mg/dL (1.8-2.4) Creatine Kinase 46 U/L (26-192) Creatine Kinase MB (Mass) 1.1 ng/mL (0.0-3.6) Creatine Kinase MB Relative Index % (0-4) Troponin I Quantitative 0.038 ng/mL (0.000-0.055) Glucose (Fingerstick) 140 mg/dL (70-99) 164 mg/dL (70-99) 178 mg/dL (70-99) Test 04/30/17 07:28 Glucose (Fingerstick) 153 mg/dL (70-99) Plan Plan 1.malfunctioning dialysis catheter 2. A/C systolic CHF EF 25% per CC 3. chronic chest wall pain MS R sided 4. ESRD requiring hemodialysis 5. DVT RLE 12/11/16 on Eliquis with h/o PE, DVT RLE & IVC filte 6. DM II with neuropathy, PVD, chronic insulin use 7. anxiety/depression 8. HTN 9. hyperlipidemia 10. CAD with h/o PR and PCI with stent placed 11. GERD 12. chronic LBP 13. h/o hypercapnic/hypoxic respiratory failure with narcotics 13. 14. h/o CVA 15. COPD with remote h/o tobacco abuse 16. h/o urine retention 17. 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 morbid obesity 19. JENNA O2 3L NC at hs (CPAP in tolerant) 20. severe chronic PCL malnutrition 21. anemia CD renal PLAN: malfunction dialysis catheter IR to DC current and place new dialysis catheter nephrology consult dialysis when new cath placed DM II Home insulin: Levemir 60unit BID and novolog 45u tid ac FSBS/SSI Begin Levemir 45unit BID Novolog 30u tid a/c systolic CHF daily weight IO Admit weight 260# R sided chest pain PRN pain medication DVT/GI prophylaxis eliquis PPI For more details regarding further plans, please refer to the orders. CHELE SINGH MD 04/30/17 0944: HISTORY AND PHYSICAL Plan Plan The patient was seen and examined by me. Chart reviewed and plan of care formulated. Discussed with, reviewed and agree with MANUFACTURING CONTROLS ENGINEER's notes, plan of care and orders with modifications as necessary. For more details regarding further plans, please refer to the orders. Discharge later today if stable. YVONNE LAYNE APRN Apr 30, 2017 09:05 CHELE SINGH MD Apr 30, 2017 09:44
[2017-04-30] MEDS: ASPIRIN ENTERIC COATED 81 MG TABLET.DR. PO SCH (10:27)
[2017-04-30] MEDS ORDERED: HEPARIN for ARTERIAL LINE 0 ML ONE (10:53)
[2017-04-30] MEDS ORDERED: HEPARIN for IV BOLUS 10,000 UNIT/10 ML VIAL. ONE (10:53)
[2017-04-30] MEDS ORDERED: LIDOCAINE 1%/EPI 1:100,000 20 ML VIAL. ONE (10:53)
[2017-04-30 11:08] VITALS: BP 93/58
--- NOTE | 2017-04-30 11:38 | PDOC ---
IR PROGRESS NOTE Comment Vitals/I & O Vital Sign - Last 24 Hours 04/29/17 04/29/17 04/29/17 04/29/17 11:57 11:59 12:34 12:35 Pulse 79 78 Resp 18 18 16 B/P (MAP) 116/60 (78) 123/58 (79) Pulse Ox 96 97 97 97 O2 Delivery Nasal Cannula Nasal Cannula Nasal Cannula Nasal Cannula O2 Flow Rate 2.0 2.0 2.0 2.0 04/29/17 04/29/17 04/29/17 04/29/17 13:30 14:54 15:00 18:16 Temp 97.9 97.9 Pulse 76 76 Resp 20 18 B/P (MAP) 113/66 (82) 113/66 Pulse Ox 95 92 O2 Delivery Nasal Cannula Nasal Cannula Nasal Cannula O2 Flow Rate 2.0 2.0 2.0 04/29/17 04/29/17 04/29/17 04/29/17 18:17 19:00 20:00 20:12 Temp 98.0 98.0 Pulse 75 Resp 20 20 B/P (MAP) 114/70 (85) Pulse Ox 93 92 90 O2 Delivery Nasal Cannula Nasal Cannula Nasal Cannula Nasal Cannula O2 Flow Rate 2.0 2.0 1.5 1.5 04/29/17 04/29/17 04/30/17 04/30/17 22:20 23:00 07:00 07:25 Temp 98.0 97.6 98.0 97.6 Pulse 78 76 Resp 17 22 B/P (MAP) 113/73 (86) 107/64 (78) Pulse Ox 90 96 94 97 O2 Delivery Nasal Cannula Nasal Cannula Nasal Cannula Nasal Cannula O2 Flow Rate 1.5 2.0 2.0 3.0 04/30/17 04/30/17 04/30/17 04/30/17 08:00 08:27 11:08 11:28 Temp 97.7 97.7 Pulse 76 78 Resp 16 B/P (MAP) 107/64 93/58 (70) Pulse Ox 90 O2 Delivery Nasal Cannula Nasal Cannula Nasal Cannula O2 Flow Rate 2.0 2.0 3.0 Intake and Output 04/29/17 04/29/17 04/30/17 15:00 23:00 07:00 Intake Total 1000 ml Balance 1000 ml Plan Plan Was asked to evaluate Mrs Moore for dialysis catheter malfunction. She was brought down to IR. Her catheter was found to flush and aspirate normally with excellent manual aspiration and flush rates. A CXR yesterday shows the catheter to be well positioned. The catheter was flushed and packed with heparin. ASSESMENT: At current the right IJ tunneled dialysis catheter appears to be functioning normally. JANNA SWENSON MD Apr 30, 2017 11:38
[2017-04-30] MEDS ORDERED: MAGNESIUM SULFATE 2GM 50 ML IV PRN (12:15)
--- NOTE | 2017-04-30 12:25 | PDOC2 ---
CONSULT Date of Consult Date of Consult DATE: 04/30/17 TIME: 12:13 Reason for Consult Reason for Consult: ESRD and non-functioning HD Cath Referring Physician Referring Physician: Dr Johnson Identification/Chief Complaint Chief Complaint non-functioning HD Cath Problems: Source Source: Chart review, Patient History of Present Illness Reason for Visit: as dictated # [id number] Past Medical History Cardiovascular: CAD, CHF (systolic EF 25% per CC February 2017), HTN, NM, Hyperlipidemia, Valve insufficiency (MVR and tricuspid regurg ), Other (DVT RLE with h/o DVT/PE anticoagulated, PVD ) Pulmonary: COPD, Pulmonary embolus (chronic anticoagulation ), Other (JENNA with 2-3 L NC -CPAP intolerant ) CENTRAL NERVOUS SYSTEM: CVA, Periperal neuropathy, Other GI: GERD Heme/Onc: Anemia NOS Hepatobiliary: Other Psych: Anxiety, Depression Musculoskeletal: low back pain, Osteoarthritis, Other Renal/: Chronic renal failure (ESRD ) Endocrine: Diabetes (TYpe II insulin peripheral neuropathy ), Hyperparathyroidism (secobndary ), Other Past Surgical History Past Surgical History: Cholecystectomy, , Hernia Repair, Other (PCI/ stent coronary; IVC filter ) Family History Family History: Diabetes, Heart Disease, Hypertension Social History No ALCOHOL: none Drugs: None Lives: with Family Current Medications Current Medications Current Medications Morphine Sulfate 5 mg 1X ONCE IM Last administered on 04/29/17 10:02; Start 04/29/17 at 10:00; Stop 04/29/17 at 10:01; Status DC Morphine Sulfate 4 mg PRN Q15MIN PRN IV/SQ PAIN GREATER THAN 3/10 Last administered on 04/29/17 14:54; Start 04/29/17 at 10:15; Stop 04/30/17 at 09:13 ; Status DC Acetaminophen (Tylenol) 650 mg PRN Q6HRS PRN PO MILD PAIN / TEMP; Start at 15:45 Ascorbic Acid (Vitamin C) 500 mg DAILY PO ; Start 04/30/17 at 09:00 Atorvastatin Calcium (Lipitor) 40 mg HS PO Last administered on 04/29/17 20:49 ; Start 04/29/17 at 21:00 Calcium Carbonate/ Glycine (Tums) 500 mg PRN AFTMEALHC PRN PO INDIGESTION; Start 04/29/17 at 15:45 Carvedilol (Coreg) 3.125 mg BIDWMEALS PO Last administered on 04/30/17 08:27; Start 04/29/17 at 17:00 Darbepoetin Bacilio (Aranesp) 60 mcg WEEKLYHS SQ ; Start 05/06/17 at 21:00 Fentanyl (Duragesic 50mcg/ Hr Patch) 1 patch Q3DAYS TD Last administered on 18:17; Start 04/29/17 at 15:30 Hydromorphone HCl (Dilaudid) 4 mg PRN Q6HRS PRN PO PAIN Last administered on 19:45; Start 04/29/17 at 15:45 Albuterol/ Ipratropium (Duoneb) 3 ml RTQID NEB Last administered on 04/30/17 11:27; Start 04/29/17 at 16:00 Magnesium Hydroxide (Milk Of Magnesia) 2,400 mg PRN DAILY PRN PO CONSTIPATION; Start 04/29/17 at 15:45 Magnesium Oxide (Magnesium Oxide) 400 mg TID PO Last administered on 04/29/17 20:49; Start 04/29/17 at 21:00 Metoclopramide HCl (Reglan) 5 mg TIDAC PO Last administered on 04/29/17 18:16 ; Start 04/29/17 at 16:30 Nitroglycerin (Nitrostat) 0.4 mg PRN Q5MIN PRN SL CHEST PAIN; Start 04/29/17 at 15:45 Ondansetron HCl (Zofran Odt) 4 mg PRN Q6HRS PRN PO NAUSEA/VOMITING; Start 04/29 at 15:45 Venlafaxine HCl (Effexor Xr) 112.5 mg DAILY PO ; Start 04/30/17 at 09:00 Pantoprazole Sodium (Protonix) 40 mg QHS PO Last administered on 04/29/17 20: 49; Start 04/29/17 at 21:00 Insulin Aspart (NovoLOG) 0-7 UNITS TIDWMEALS SQ Last administered on 04/29/17 18:23; Start 04/29/17 at 17:00 Dextrose (Dextrose 50%-Water Syringe) 12.5 gm PRN Q15MIN PRN IV SEE COMMENTS; Start 04/29/17 at 16:00 Insulin Detemir (Levemir) 20 units 1X ONCE SQ Last administered on 04/29/17 20:00; Start 04/29/17 at 20:00; Stop 04/29/17 at 20:01; Status DC Aspirin (Ecotrin) 81 mg DAILY PO Last administered on 04/30/17 10:27; Start at 09:00 Insulin Detemir (Levemir) 45 units BID76 SQ ; Start 04/30/17 at 18:00 Insulin Aspart (NovoLOG) 30 units TIDAC SQ ; Start 04/30/17 at 11:30 Heparin Sodium (Porcine) (Heparin Sodium) 10,000 unit STK-MED ONCE .ROUTE ; Start 04/30/17 at 10:53; Stop 04/30/17 at 10:54; Status DC Lidocaine/ Epinephrine (Xylocaine 1%-Epi 1:100,000) 20 ml STK-MED ONCE .ROUTE ; Start 04/30/17 at 10:53; Stop 04/30/17 at 10:54; Status DC Heparin Sodium/ Sodium Chloride 500 ml @ As Directed STK-MED ONCE .ROUTE ; Start 04/30/17 at 10:53; Stop 04/30/17 at 10:54; Status DC Active Scripts Active Dilaudid (Hydromorphone Hcl) 4 Mg Tablet 1 Tab PO PRN Q6HRS PRN Effexor Xr (Venlafaxine Hcl) 37.5 Mg Cap.er.24h 30 Cap PO DAILY Tylenol (Acetaminophen) 325 Mg Tablet 650 Mg PO PRN Q6HRS PRN Metoclopramide Hcl 10 Mg Tablet 5 Mg PO TIDAC Aranesp Syringe (Darbepoetin Bacilio In Polysorbat) 60 Mcg/0.3 Ml Disp.syrin 60 Mcg SQ WEEKLYHS Calcium Carbonate 200 Mg Tab.chew 500 Mg PO PRN AFTMEALHC PRN Vitamin C (Ascorbic Acid) 500 Mg Tablet 500 Mg PO DAILY Eliquis (Apixaban) 5 Mg Tablet 5 Mg PO BID FENTANYL 50mcg/hr (Fentanyl) 1 Each Patch.td72 1 Patch TD Q3DAYS Coreg (Carvedilol) 3.125 Mg Tablet 1 Tab PO BID Zofran Odt (Ondansetron) 4 Mg Tab.rapdis 1 Tab SL PRN Q6HRS PRN Milk Of Magnesia (Magnesium Hydroxide) 400 Mg/5 Ml Oral.susp 2,400 Mg PO PRN DAILY PRN Duoneb 0.5-3(2.5) Mg/3 Ml (Albuterol/Ipratropium) 3 Ml Ampul.neb 3 Ml NEB RTQID Reported Novolog (Insulin Aspart) 100 Unit/1 Ml Vial 0 SQ TIDWMEALS Novolog (Insulin Aspart) 100 Unit/1 Ml Cartridge 45 Unit SQ Lantus Solostar (Insulin Glargine,Hum.rec.anlog) 100 Unit/1 Ml Insuln.pen 50 Unit SQ QHS Magnesium Oxide 400 Mg Tablet 400 Mg PO TID Aspir 81 (Aspirin) 81 Mg Tablet.dr 81 Mg PO DAILY Nitrostat (Nitroglycerin) 0.4 Mg Tab.subl 0.4 Mg SL PRN Q5MIN PRN Atorvastatin Calcium 40 Mg Tablet 40 Mg PO HS Omeprazole 20 Mg Capsule.dr 20 Mg PO HS Allergies Allergies: Coded Allergies: Penicillins (Verified Allergy, Severe, causes swelling of throat, 01/15/17) Sulfa (Sulfonamide Antibiotics) (Verified Allergy, Severe, causes throat to swell, 01/15/17) amoxicillin (Verified Allergy, Severe, causes swelling of throat, 01/15/17) clarithromycin (Verified Allergy, Severe, causes throat to swell, 01/15/17) codeine (Verified Allergy, Severe, "closed up my throat and itching", 01/31) tolerates percocet, Dilaudid is home med hydrocodone (Verified Allergy, Severe, "closes up my throat and itching", 01/31/17) tolerates percocet, Dilaudid is home med silver sulfadiazine (Verified Allergy, Severe, Rash, 01/15/17) oxycodone (Verified Allergy, Intermediate, 01/15/17) tramadol (Verified Allergy, Intermediate, Nausea and Vomiting, 01/15/17) I S O L A T I O N *CONTACT* (Verified Allergy, Unknown, 01/15/17) mrsa ROS Review of System GEN: no Fevers no Chills EYES: no new Visual Complaints ENT: no EN Drainage no Hearing deficiets CVS: no Orthopnea no CP RESP: no SOB no CARRION GI: no Nausea no Vomiting : no Dysuria no Urgency HEME: no easy bruising no Palp Ly Nodes NEURO no Focal Weakness no Sz PSYCH: no Suicidal Ideation no Depression SKIN: no Rashes ENDO: no Polyuria or Polydipsia no Hot/Cold Intolerance MU SK: occ Arthraigia no Myalgia Physical Exam Physical Exam General Appearance: Awake Alert Oriented x 3 In no Distress Eyes: VIsion Unchanged Conjunctiva Normal EN: No EN Drainage Mucous Memb. moist Neck: no JVD min JVP Supple no Thyromegaly CVS: S1 S2 + Murmur No Gallop No Rub +2 Edema Resp: no Rales no Rhonchi no Acc. Muscle use GI: BAS +ve NO Bruit Non Tender Non Distended- Obese : no CVA tenderness; no Suprapubic Tenderness SKIN: no petechial Rashes Breast Exam deferred; ? vinay Malar Rash Mu.Sk: Adequate ROM no Muscle Atrophy Heme: Unable to palpate Obvious LAD no Splenomegaly NEURO: Good Strength and Tone Cranial Nerves II - XII grossly intact Psych: ? Depressed no Active hallucination Vital Signs Vital Signs Date Time Temp Pulse Resp B/P (MAP) Pulse Ox O2 Delivery O2 Flow Rate FiO2 04/30/17 11:28 Nasal Cannula 3.0 04/30/17 11:08 97.7 78 16 93/58 (70) 90 97.7 Assessment & Plan ESRD: Dialysis as below (PENDING LABS) F 180 NR 4.0 Hrs 3 K 2.5 Ca 140 Na 35 HC03 Qb 350 + Qd 500+ Heparin 0 Units Uf to dry weight as tolerated May give 25-50 gms of 25% Albumin if needed to maintain Hemodynamic stability Treatment plan reviewed and discussed with boat crew deck hand Anemia: NO Epogen ordered for hgb > 10. Transfuse with next HD as needed - if it drops < 7.0 Low Mag - Prn Mag as ordered HTN: Current BP meds reviewed. See orders for changes. non-functioning HD Cath - CHange out per IR as ordered - will try on HD prior to D/c May need Xtra _HD in am due to missed HD on Wed Discussed Plan of Care and prognosis etc. at length with pt Labs Labs Laboratory Tests Test 04/29/17 10:50 04/29/17 13:32 04/29/17 16:31 04/29/17 21:03 White Blood Count 9.1 x10^3/uL (4.0-11.0) Red Blood Count 4.25 x10^6/uL (3.50-5.40) Hemoglobin 11.9 g/dL (12.0-15.5) Hematocrit 37.8 % (36.0-47.0) Mean Corpuscular Volume 89 fL (79-100) Mean Corpuscular Hemoglobin 28 pg (25-35) Mean Corpuscular Hemoglobin Concent 32 g/dL (31-37) Red Cell Distribution Width 20.7 % (11.5-14.5) Platelet Count 157 x10^3/uL (140-400) Neutrophils (%) (Auto) 80 % (31-73) Lymphocytes (%) (Auto) 13 % (24-48) Monocytes (%) (Auto) 4 % (0-9) Eosinophils (%) (Auto) 2 % (0-3) Basophils (%) (Auto) 1 % (0-3) Neutrophils # (Auto) 7.3 x10^3uL (1.8-7.7) Lymphocytes # (Auto) 1.2 x10^3/uL (1.0-4.8) Monocytes # (Auto) 0.4 x10^3/uL (0.0-1.1) Eosinophils # (Auto) 0.2 x10^3/uL (0.0-0.7) Basophils # (Auto) 0.1 x10^3/uL (0.0-0.2) Platelet Estimate Adequate (ADEQUATE) Anisocytosis Slight Prothrombin Time 15.0 SEC (11.7-14.0) Prothromb Time International Ratio 1.3 (0.8-1.1) Sodium Level 145 mmol/L (136-145) Potassium Level 4.0 mmol/L (3.5-5.1) Chloride Level 107 mmol/L (98-107) Carbon Dioxide Level 30 mmol/L (21-32) Anion Gap 8 (6-14) Blood Urea Nitrogen 23 mg/dL (7-20) Creatinine 1.8 mg/dL (0.6-1.0) Estimated GFR (Cockcroft-Gault) 30.2 Glucose Level 220 mg/dL (70-99) Calcium Level 8.1 mg/dL (8.5-10.1) Magnesium Level 1.7 mg/dL (1.8-2.4) Creatine Kinase 46 U/L (26-192) Creatine Kinase MB (Mass) 1.1 ng/mL (0.0-3.6) Creatine Kinase MB Relative Index % (0-4) Troponin I Quantitative 0.038 ng/mL (0.000-0.055) Glucose (Fingerstick) 140 mg/dL (70-99) 164 mg/dL (70-99) 178 mg/dL (70-99) Test 04/30/17 07:28 Glucose (Fingerstick) 153 mg/dL (70-99) Laboratory Tests Test 04/29/17 13:32 04/29/17 16:31 04/29/17 21:03 04/30/17 07:28 Glucose (Fingerstick) 140 mg/dL (70-99) 164 mg/dL (70-99) 178 mg/dL (70-99) 153 mg/dL (70-99) Images Images 1. Grossly unremarkable appearance of right internal jugular tunnel dialysis catheter 2. Mild central vascular congestion and cardiomegaly, similar to comparison exams PAIGE MOSQUEDA MD Apr 30, 2017 12:25
--- NOTE | 2017-04-30 12:52 | DISCH ---
DISCHARGE INSTRUCTIONS Condition on Discharge Condition on Discharge: Stable Activity After Discharge Activity Instructions for Disc: Resume previous activity, Activity as tolerated Diet after Discharge Diet after Discharge: Cardiac, No Added Sugar Wound Incision Care Wound Care Equipment: Dressings (Keep dressing dry and intact) Checks after Discharge Checks after discharge: Check blood sugar, ac/hs Contacting the DRNadya after DC Call your doctor for: Concerns you may have Follow-Up Follow up with: Dr. Johnson or Jony in 5 days Follow Up With: Continue with hemodialysis MWF YVONNE LAYNE APRN Apr 30, 2017 12:52
[2017-04-30] MEDS ORDERED: VENL37.5 PO (12:59)
[2017-04-30] MEDS ORDERED: INSU100I13 SQ (12:59)
[2017-04-30] MEDS ORDERED: INSU100C4 SQ (12:59)
[2017-04-30] MEDS: HYDROmorphone 4 MG TABLET PO PRN ×2 (14:56→21:34)
[2017-04-30] MEDS ORDERED: INSULIN DETEMIR 300 UNITS/3 ML INSULN.PEN. SQ SCH (18:00)
[2017-04-30 19:00] VITALS: BP 112/62
[2017-04-30] MEDS: PANTOPRAZOLE 40 MG TABLET.DR. PO SCH (21:34)
[2017-04-30] MEDS: ATORVASTATIN CALCIUM 40 MG TABLET. PO SCH (21:34)
[2017-04-30 23:00] VITALS: BP 101/65
--- NOTE | 2017-05-01 01:58 | CONS ---
DATE OF CONSULTATION: PRIMARY PHYSICIAN: Dr. Dunia Johnson. REASON FOR CONSULTATION: ESRD dialysis. HISTORY OF PRESENT ILLNESS: The patient is a 46-year-old female who dialyzes Wednesday, Wednesday, and Wednesday under the care of Dr. Toussaint. She was at dialysis on Wednesday and her catheter did not run too well. She barely ran for one hour on dialysis. She presented to the ER yesterday for intervention on her catheter. For possible change out, IR has been consulted for the same. We were asked to see her for her ESRD needs. Her fluid status was adequate. Her only lab abnormality includes magnesium of 1.7. We will reassess her on dialysis later to see how her catheter is working. For rest of the details, see electronic record. PAIGE MOSQUEDA MD DR: LORRAINE/britney JOB#: [id number] / [id number]
[2017-05-01 03:17] LABS: HEP B SURFACE ABDY Non Reactive (.)
[2017-05-01] MEDS: INSULIN ASPART 300 UNITS/3 ML INSULN.PEN SQ SCH ×4 (07:30→11:17)
[2017-05-01] MEDS: METOCLOPRAMIDE 10 MG TABLET. PO SCH ×2 (07:30→11:13)
[2017-05-01] MEDS ORDERED: IV NORMAL SALINE 1000ML BAG 1,000 ML IV PRN (07:42)
[2017-05-01] MEDS ORDERED: DIALYSIS PATIENT. MC PRN ×2 (07:45)
[2017-05-01 07:54] LABS: ALBUMIN 2.6 g/dL (3.4-5.0); CALCIUM 8.2 mg/dL (8.5-10.1); CREATININE 1.8 mg/dL (0.6-1.0); GFR 30.2; MAGNESIUM 1.8 mg/dL (1.8-2.4); PHOSPHORUS 2.9 mg/dL (2.6-4.7); POTASSIUM 3.9 mmol/L (3.5-5.1)
[2017-05-01] MEDS: IPRATRPIUM/ALBUTEROL 0.5/2.5MG 3 ML NEBU. NEB SCH ×2 (08:00→11:22)
--- NOTE | 2017-05-01 08:53 | PDOC ---
Dialysis Progress Note Dialysis Note Dialysis Note Seen on Hemodialysis, tolerating treatment Well Vitals on Hemodialysis: 121/64 76 afeb General Appearance: Awake: Alert Oriented x 3 Neck: No JVD or JVP Chest: CTA Jarod Heart: S1 S2 Abdomen - Soft NTND Extremities - No Edema ESRD : Dialysis as below F 180 NR 3.5 Hrs 3 K 2.5 Ca 140 Na 35 HC03 Qb 350 + Qd 500+ Heparin 0 Units Uf 2 Kgs or to dry weight as tolerated May give 25-50 gms of 25% Albumin if needed to maintain Hemodynamic stability Treatment plan reviewed and discussed with small offset printer Vitals Vital Signs Vital Signs Date Time Temp Pulse Resp B/P (MAP) Pulse Ox O2 Delivery O2 Flow Rate FiO2 05/01/17 03:00 04/30/17 23:00 98.8 85 16 91 98.8 04/30/17 20:03 Nasal Cannula 2.0 Labs Last Labs Laboratory Tests Test 04/29/17 10:50 04/29/17 13:32 04/29/17 16:31 04/29/17 21:03 White Blood Count 9.1 x10^3/uL (4.0-11.0) Red Blood Count 4.25 x10^6/uL (3.50-5.40) Hemoglobin 11.9 g/dL (12.0-15.5) Hematocrit 37.8 % (36.0-47.0) Mean Corpuscular Volume 89 fL (79-100) Mean Corpuscular Hemoglobin 28 pg (25-35) Mean Corpuscular Hemoglobin Concent 32 g/dL (31-37) Red Cell Distribution Width 20.7 % (11.5-14.5) Platelet Count 157 x10^3/uL (140-400) Neutrophils (%) (Auto) 80 % (31-73) Lymphocytes (%) (Auto) 13 % (24-48) Monocytes (%) (Auto) 4 % (0-9) Eosinophils (%) (Auto) 2 % (0-3) Basophils (%) (Auto) 1 % (0-3) Neutrophils # (Auto) 7.3 x10^3uL (1.8-7.7) Lymphocytes # (Auto) 1.2 x10^3/uL (1.0-4.8) Monocytes # (Auto) 0.4 x10^3/uL (0.0-1.1) Eosinophils # (Auto) 0.2 x10^3/uL (0.0-0.7) Basophils # (Auto) 0.1 x10^3/uL (0.0-0.2) Platelet Estimate Adequate (ADEQUATE) Anisocytosis Slight Prothrombin Time 15.0 SEC (11.7-14.0) Prothromb Time International Ratio 1.3 (0.8-1.1) Sodium Level 145 mmol/L (136-145) Potassium Level 4.0 mmol/L (3.5-5.1) Chloride Level 107 mmol/L (98-107) Carbon Dioxide Level 30 mmol/L (21-32) Anion Gap 8 (6-14) Blood Urea Nitrogen 23 mg/dL (7-20) Creatinine 1.8 mg/dL (0.6-1.0) Estimated GFR (Cockcroft-Gault) 30.2 Glucose Level 220 mg/dL (70-99) Calcium Level 8.1 mg/dL (8.5-10.1) Magnesium Level 1.7 mg/dL (1.8-2.4) Creatine Kinase 46 U/L (26-192) Creatine Kinase MB (Mass) 1.1 ng/mL (0.0-3.6) Creatine Kinase MB Relative Index % (0-4) Troponin I Quantitative 0.038 ng/mL (0.000-0.055) Glucose (Fingerstick) 140 mg/dL (70-99) 164 mg/dL (70-99) 178 mg/dL (70-99) Test 04/30/17 07:28 04/30/17 11:33 04/30/17 16:20 04/30/17 21:19 Glucose (Fingerstick) 153 mg/dL (70-99) 128 mg/dL (70-99) 149 mg/dL (70-99) Hepatitis B Surface Antigen Negative (Negative) Hepatitis B Surface Antibody Non reactive (.) Test 05/01/17 05:40 05/01/17 07:00 Hemoglobin 11.6 g/dL (12.0-15.5) Sodium Level 140 mmol/L (136-145) Potassium Level 3.9 mmol/L (3.5-5.1) Chloride Level 103 mmol/L (98-107) Carbon Dioxide Level 31 mmol/L (21-32) Anion Gap 6 (6-14) Blood Urea Nitrogen 16 mg/dL (7-20) Creatinine 1.8 mg/dL (0.6-1.0) Estimated GFR (Cockcroft-Gault) 30.2 Glucose Level 145 mg/dL (70-99) Calcium Level 8.2 mg/dL (8.5-10.1) Phosphorus Level 2.9 mg/dL (2.6-4.7) Magnesium Level 1.8 mg/dL (1.8-2.4) Albumin 2.6 g/dL (3.4-5.0) Laboratory Tests Test 04/30/17 11:33 04/30/17 16:20 04/30/17 21:19 05/01/17 05:40 Glucose (Fingerstick) 128 mg/dL (70-99) 149 mg/dL (70-99) Hepatitis B Surface Antigen Negative (Negative) Hepatitis B Surface Antibody Non reactive (.) Hemoglobin 11.6 g/dL (12.0-15.5) Test 05/01/17 07:00 Sodium Level 140 mmol/L (136-145) Potassium Level 3.9 mmol/L (3.5-5.1) Chloride Level 103 mmol/L (98-107) Carbon Dioxide Level 31 mmol/L (21-32) Anion Gap 6 (6-14) Blood Urea Nitrogen 16 mg/dL (7-20) Creatinine 1.8 mg/dL (0.6-1.0) Estimated GFR (Cockcroft-Gault) 30.2 Glucose Level 145 mg/dL (70-99) Calcium Level 8.2 mg/dL (8.5-10.1) Phosphorus Level 2.9 mg/dL (2.6-4.7) Magnesium Level 1.8 mg/dL (1.8-2.4) Albumin 2.6 g/dL (3.4-5.0) PAIGE MOSQUEDA MD May 01, 2017 08:52
[2017-05-01] MEDS ORDERED: INSULIN DETEMIR 300 UNITS/3 ML INSULN.PEN. SQ SCH (09:00)
[2017-05-01 11:00] VITALS: BP 100/69
[2017-05-01 11:13] VITALS: BP 101/65
[2017-05-01] MEDS: VENLAFAXINE XR 37.5 MG CAP.ER.24H. PO SCH (11:13)
[2017-05-01] MEDS: CARVEDILOL 3.125 MG TABLET. PO SCH (11:13)
[2017-05-01] MEDS: MAGNESIUM OXIDE 400 MG TABLET PO SCH (11:13)
[2017-05-01] MEDS: ASCORBIC ACID 500 MG TABLET PO SCH (11:13)
[2017-05-01] MEDS: ASPIRIN ENTERIC COATED 81 MG TABLET.DR. PO SCH (11:13)
--- NOTE | 2017-05-01 11:42 | PDOC ---
PROGRESS NOTES Subjective Subjective feeling better ,got dialyzed this morning Objective Objective Vital Signs Date Time Temp Pulse Resp B/P (MAP) Pulse Ox O2 Delivery O2 Flow Rate FiO2 05/01/17 11:13 85 101/65 04/30/17 23:00 98.8 16 91 98.8 04/30/17 20:03 Nasal Cannula 2.0 Intake and Output 05/01/17 07:00 Intake Total 1460 ml Balance 1460 ml Intake Oral 1460 ml # Voids 2 Physical Exam Heart: Regular rate, Normal S1, Normal S2 General: Oriented X3 HEENT: Atraumatic Lungs: Clear to auscultation MUSCULOSKELETAL: Osteoarthritic changes both hands Neck: Supple Neuro: Normal speech Psych/Mental Status: Mood NL Skin: No significant lesion Assessment Assessment 1.malfunctioning dialysis catheter 2. A/C systolic CHF EF 25% per CC 3. chronic chest wall pain MS R sided 4. ESRD requiring hemodialysis 5. DVT RLE 12/11/16 on Eliquis with h/o PE, DVT RLE & IVC filte 6. DM II with neuropathy, PVD, chronic insulin use 7. anxiety/depression 8. HTN 9. hyperlipidemia 10. CAD with h/o IN and PCI with stent placed 11. GERD 12. chronic LBP 13. h/o hypercapnic/hypoxic respiratory failure with narcotics 13. 14. h/o CVA 15. COPD with remote h/o tobacco abuse 16. h/o urine retention 17. 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 morbid obesity 19. JENNA O2 3L NC at hs (CPAP in tolerant) 20. severe chronic PCL malnutrition 21. anemia CD renal PLAN: malfunction dialysis catheter IR repaired dialysis catheter nephrology consult appreciated dialyzed this morning d/c home today DM II Home insulin: Levemir 60unit BID and novolog 45u tid ac FSBS/SSI Begin Levemir 45unit BID Novolog 30u tid a/c systolic CHF daily weight IO Admit weight 260# R sided chest pain PRN pain medication Problems: Comment Review of Relevant I have reviewed the following items melvi (where applicable) has been applied. Labs Laboratory Tests Test 04/30/17 16:20 04/30/17 21:19 05/01/17 05:40 05/01/17 07:00 Hepatitis B Surface Antigen Negative (Negative) Hepatitis B Surface Antibody Non reactive (.) Glucose (Fingerstick) 149 mg/dL (70-99) Hemoglobin 11.6 g/dL (12.0-15.5) Sodium Level 140 mmol/L (136-145) Potassium Level 3.9 mmol/L (3.5-5.1) Chloride Level 103 mmol/L (98-107) Carbon Dioxide Level 31 mmol/L (21-32) Anion Gap 6 (6-14) Blood Urea Nitrogen 16 mg/dL (7-20) Creatinine 1.8 mg/dL (0.6-1.0) Estimated GFR (Cockcroft-Gault) 30.2 Glucose Level 145 mg/dL (70-99) Calcium Level 8.2 mg/dL (8.5-10.1) Phosphorus Level 2.9 mg/dL (2.6-4.7) Magnesium Level 1.8 mg/dL (1.8-2.4) Albumin 2.6 g/dL (3.4-5.0) Test 05/01/17 11:12 Glucose (Fingerstick) 112 mg/dL (70-99) Medications Current Medications Darbepoetin Bacilio (Aranesp) 60 mcg WEEKLYHS SQ ; Start 05/06/17 at 21:00 Heparin Sodium/ Sodium Chloride 500 ml @ As Directed STK-MED ONCE .ROUTE ; Start 04/30/17 at 12:24; Stop 04/30/17 at 12:25; Status DC Info (PHARMACY MONITORING -- do not chart) 1 each PRN DAILY PRN MC SEE COMMENTS ; Start 05/01/17 at 07:45 Info (PHARMACY MONITORING -- do not chart) 1 each PRN DAILY PRN MC SEE COMMENTS ; Start 05/01/17 at 07:45; Status UNV Insulin Detemir (Levemir) 45 units BID SQ ; Start 05/01/17 at 09:00 Insulin Detemir (Levemir) 45 units BID76 SQ ; Start 04/30/17 at 18:00; Stop at 05:55; Status DC Magnesium Sulfate/ Dextrose 50 ml @ 25 mls/hr PRN DAILY PRN IV for Mag < 1.7 on am labs; Start 04/30/17 at 12:15 Sodium Chloride 1,000 ml @ 1,000 mls/hr Q1H PRN IV hypotension; Start 05/01/17 at 07:42; Stop 05/01/17 at 13:41 Vitals/I & O Vital Sign - Last 24 Hours 04/30/17 04/30/17 04/30/17 04/30/17 15:43 19:00 20:03 21:33 Temp 97.7 97.7 Pulse 79 79 Resp 18 B/P (MAP) 112/62 (79) 112/62 Pulse Ox 96 O2 Delivery Nasal Cannula Nasal Cannula O2 Flow Rate 3.0 2.0 04/30/17 05/01/17 05/01/17 23:00 03:00 11:13 Temp 98.8 98.8 Pulse 85 85 Resp 16 B/P (MAP) 101/65 (77) 101/65 Pulse Ox 91 Intake and Output 04/30/17 04/30/17 05/01/17 15:00 23:00 07:00 Intake Total 550 ml 670 ml 240 ml Balance 550 ml 670 ml 240 ml ZINA MATT MD May 01, 2017 11:42
[2017-05-06] MEDS ORDERED: DARBEPOETIN ALFA 60 MCG/0.3 ML DISP.SYRIN. SQ SCH (21:00)
== END 2017-05-01 12:50 | disposition home or self-care (01) | DRG 314 ==
LOC: ER 09:15 → 5 SOUTH 10:34
PROVIDERS: ADMIT Internal Medicine; ATTEND Internal Medicine
PROC: 5A1D60Z (ICD-10-PCS; principal; 2017-05-01)
DX: T82.41XA Breakdown (mechanical) of vascular dialysis catheter, initial encounter (principal); N18.6 End stage renal disease; E43 Unspecified severe protein-calorie malnutrition; I50.23 Acute on chronic systolic (congestive) heart failure; Z68.41 Body mass index [BMI] 40.0-44.9, adult; I13.2 Hypertensive heart and chronic kidney disease with heart failure and with stage 5 chronic kidney disease, or end stage renal disease; N25.81 Secondary hyperparathyroidism of renal origin; D63.1 Anemia in chronic kidney disease; E11.22 Type 2 diabetes mellitus with diabetic chronic kidney disease; E11.42 Type 2 diabetes mellitus with diabetic polyneuropathy; E78.00 Pure hypercholesterolemia, unspecified; E78.5 Hyperlipidemia, unspecified; F32.9 Major depressive disorder, single episode, unspecified; F41.9 Anxiety disorder, unspecified; G47.33 Obstructive sleep apnea (adult) (pediatric); G89.29 Other chronic pain; I25.10 Atherosclerotic heart disease of native coronary artery without angina pectoris; E11.51 Type 2 diabetes mellitus with diabetic peripheral angiopathy without gangrene; M19.90 Unspecified osteoarthritis, unspecified site; K59.00 Constipation, unspecified; M10.9 Gout, unspecified; I08.1 Rheumatic disorders of both mitral and tricuspid valves; J44.9 Chronic obstructive pulmonary disease, unspecified; E66.01 Morbid (severe) obesity due to excess calories; M54.5 Low back pain; F17.210 Nicotine dependence, cigarettes, uncomplicated; K21.9 Gastro-esophageal reflux disease without esophagitis; I25.2 Old myocardial infarction; Z79.01 Long term (current) use of anticoagulants; Z82.49 Family history of ischemic heart disease and other diseases of the circulatory system; Z83.3 Family history of diabetes mellitus; Z86.711 Personal history of pulmonary embolism; Z86.718 Personal history of other venous thrombosis and embolism; Z86.73 Personal history of transient ischemic attack (TIA), and cerebral infarction without residual deficits; Z95.5 Presence of coronary angioplasty implant and graft; Z99.2 Dependence on renal dialysis; Z90.49 Acquired absence of other specified parts of digestive tract; Z89.421 Acquired absence of other right toe(s); Z88.6 Allergy status to analgesic agent; Z88.1 Allergy status to other antibiotic agents; Z88.0 Allergy status to penicillin; Z88.2 Allergy status to sulfonamides; Z88.8 Allergy status to other drugs, medicaments and biological substances; Y92.89 Other specified places as the place of occurrence of the external cause; Z79.4 Long term (current) use of insulin; R07.89 Other chest pain
CPT/HCPCS: 36415; 71010; 80048; 80069; 82553; 82962; 83735; 84484; 85007; 85018; 85027; 85610; 86706; 87340; 87341; 93005; 94250; 94640; 94760; 96372; J1815; J2270; J7620; J8597; 99285-25

== ENCOUNTER 2017-05-05 13:26 | Inpatient (IN) | payer MEDICARE, MEDICAID ==
[~2017-05-05] VITALS: Ht 170.2 cm; Wt 117.9 kg
[2017-05-05] MEDS ORDERED: NITROGLYCERIN SUBLINGUAL 0.4 MG BOTTLE OF 25. SL PRN ×2 (13:45→22:30)
[2017-05-05 13:54] LABS: BASO # 0.1 x10^3/uL (0.0-0.2); BASO % 1 % (0-3); EOS % 2 % (0-3); HEMOGLOBIN 13.4 g/dL (12.0-15.5); LYMPH # 1.2 x10^3/uL (1.0-4.8); LYMPH % 15 % (24-48); MEAN CORPUSCULAR HEMOGLOBIN 28 pg (25-35); MEAN CORPUSCULAR HGB CONC 33 g/dL (31-37); MEAN CORPUSCULAR VOLUME 87 fL (79-100); MONO % 4 % (0-9); NEUT % 78 % (31-73); PLATELET COUNT 178 x10^3/uL (140-400); RED BLOOD COUNT 4.74 x10^6/uL (3.50-5.40); RED CELL DISTRIBUTION WIDTH 20.5 % (11.5-14.5)
--- NOTE | 2017-05-05 13:59 | PHYS DOC ---
Past Medical History Past Medical History: COPD, CVA, Diabetes-Type II, DVT, GERD, High Cholesterol , Hypertension, MS, Renal Disease, Other Additional Past Medical Histor: PE, CHRONIC BACK PAIN, ENLARGED LIVER Past Surgical History: Angioplasty, Cholecystectomy, , Other Additional Past Surgical Histo: CARDIAC STENT, VENA CAVA FILTER, HERNIA SURG, 4TH & 5TH RIGHT TOE AMP Alcohol Use: None Drug Use: None Adult General Chief Complaint Chief Complaint: CHEST PAIN HPI HPI Patient is a 46 year old female dialysis patient, dialyzed on Wednesday and Wednesday, did not get dialysis today. Present with complaints of cough, shortness of air, and chest pain. The cough and shortness of care has been going on for a couple days, the chest pain started this morning. Patient describes her pain as similar to previous MS. Denies productive cough or bloody sputum. Denies fevers, chills, rashes. Patient states her legs are swollen but is similar to her baseline. Denies has hematuria on the leg swelling or pain in the legs that is unusual. Also complains some mild abdominal discomfort. Review of Systems Review of Systems Constitutional: Denies fever or chills [] HENT: Denies nasal congestion or sore throat [] Respiratory: yes to cough, shortness of breath [] Cardiovascular: pain across the chest, worse with movement or inspiration or palpation GI: Guero discomfort. Denies nausea, vomiting, bloody stools or diarrhea [] : Denies dysuria or hematuria [] Musculoskeletal: Denies back pain or joint pain [] Neurologic: Denies headache, focal weakness or sensory changes [] Endocrine: Denies polyuria or polydipsia [] Current Medications Current Medications Current Medications Medications (Trade) Dose Ordered Sig/Ant Start Time Stop Time Status Last Admin Dose Admin Acetaminophen (Tylenol) 650 mg 1X ONCE 05/05/17 15:00 05/05/17 15:01 DC 05/05/17 14:50 650 MG Nitroglycerin (Nitrostat) 0.4 mg PRN Q5MIN PRN 05/05/17 13:45 05/06/17 13:44 05/05/17 14:05 0.4 MG Allergies Allergies Allergies Coded Allergies Type Severity Reaction Last Updated Verified Penicillins Allergy Severe causes swelling of throat 01/15/17 Yes Sulfa (Sulfonamide Antibiotics) Allergy Severe causes throat to swell 01/15/17 Yes amoxicillin Allergy Severe causes swelling of throat 01/15/17 Yes clarithromycin Allergy Severe causes throat to swell 01/15/17 Yes codeine Allergy Severe "closed up my throat and itching" 01/31/17 Yes hydrocodone Allergy Severe "closes up my throat and itching" 01/31/17 Yes silver sulfadiazine Allergy Severe Rash 01/15/17 Yes oxycodone Allergy Intermediate 01/15/17 Yes tramadol Allergy Intermediate Nausea and Vomiting 01/15/17 Yes I S O L A T I O N *CONTACT* Allergy Unknown 01/15/17 Yes Physical Exam Physical Exam Constitutional: Well developed, well nourished, mild distress, non-toxic appearance. [] HENT: Normocephalic, atraumatic, , oropharynx dry, no oral exudates, nose normal. [] Eyes: EOMI, conjunctiva normal, no discharge. [] Neck: Normal range of motion, no tenderness, supple, no stridor. [] Cardiovascular:Heart rate regular rhythm, no murmur . Normal perfusion Lungs & Thorax: Bilateral breath sounds clear to auscultation. No tachypnea Abdomen: Bowel sounds normal, soft, no tenderness, no masses, no pulsatile masses. [] Skin: Warm, dry, no erythema, no rash. Stasis dermatitis bilateral lower extremities. dialysis cath R upper chest without signs of infection. Back: No tenderness, normal range of motion Extremities: No tenderness, no cyanosis, no clubbing, ROM intact, no edema. No signs of DVT Neurologic: Alert and oriented X 3, normal motor function, normal sensory function, no focal deficits noted. [] Psychologic: Affect normal, judgement normal, mood normal. [] Current Patient Data Vital Signs Vital Signs Date Time Temp Pulse Resp B/P (MAP) Pulse Ox O2 Delivery O2 Flow Rate FiO2 05/05/17 14:05 88 127/70 05/05/17 14:00 20 95 Room Air 05/05/17 13:33 98.2 98.2 Lab Values Laboratory Tests Test 05/05/17 13:44 White Blood Count 8.0 x10^3/uL (4.0-11.0) Red Blood Count 4.74 x10^6/uL (3.50-5.40) Hemoglobin 13.4 g/dL (12.0-15.5) Hematocrit 41.0 % (36.0-47.0) Mean Corpuscular Volume 87 fL (79-100) Mean Corpuscular Hemoglobin 28 pg (25-35) Mean Corpuscular Hemoglobin Concent 33 g/dL (31-37) Red Cell Distribution Width 20.5 % (11.5-14.5) H Platelet Count 178 x10^3/uL (140-400) Neutrophils (%) (Auto) 78 % (31-73) H Lymphocytes (%) (Auto) 15 % (24-48) L Monocytes (%) (Auto) 4 % (0-9) Eosinophils (%) (Auto) 2 % (0-3) Basophils (%) (Auto) 1 % (0-3) Neutrophils # (Auto) 6.3 x10^3uL (1.8-7.7) Lymphocytes # (Auto) 1.2 x10^3/uL (1.0-4.8) Monocytes # (Auto) 0.3 x10^3/uL (0.0-1.1) Eosinophils # (Auto) 0.1 x10^3/uL (0.0-0.7) Basophils # (Auto) 0.1 x10^3/uL (0.0-0.2) Platelet Estimate Adequate (ADEQUATE) Anisocytosis Mod Sodium Level 142 mmol/L (136-145) Potassium Level 4.5 mmol/L (3.5-5.1) Chloride Level 104 mmol/L (98-107) Carbon Dioxide Level 27 mmol/L (21-32) Anion Gap 11 (6-14) Blood Urea Nitrogen 15 mg/dL (7-20) Creatinine 2.1 mg/dL (0.6-1.0) H Estimated GFR (Cockcroft-Gault) 25.2 Glucose Level 361 mg/dL (70-99) H Calcium Level 8.3 mg/dL (8.5-10.1) L Troponin I Quantitative 0.027 ng/mL (0.000-0.055) Laboratory Tests 05/05/17 13:44 Laboratory Tests 05/05/17 13:44 EKG EKG [] Radiology/Procedures Radiology/Procedures cardiomegaly, no acute issues[] Course & Med Decision Making Course & Med Decision Making Pertinent Labs and Imaging studies reviewed. (See chart for details) [] Dragon Disclaimer Dragon Disclaimer This electronic medical record was generated, in whole or in part, using a voice recognition dictation system. Departure Departure Impression: Primary Impression: Chest pain Additional Impression: Cough Condition: STABLE Referrals: CHELE SINGH MD (PCP) Problem Qualifiers Jessica LUCAS MD May 05, 2017 13:59
[2017-05-05 14:16] LABS: CALCIUM 8.3 mg/dL (8.5-10.1); CREATININE 2.1 mg/dL (0.6-1.0); GFR 25.2; POTASSIUM 4.5 mmol/L (3.5-5.1)
[2017-05-05 14:18] LABS: ANISOCYTOSIS MOD; PLT ESTIMATE ADEQUATE (ADEQUATE)
--- NOTE | 2017-05-05 14:20 | RAD ---
Portable chest, 05/05/2017: History: Chest pain, heart attack Comparison is made to a study from 04/29/2017. A right sided dialysis type catheter extends into the superior aspect of the right atrium. The heart is mildly enlarged. The pulmonary vascularity appears to be within normal limits. No pulmonary infiltrates are seen. There is no evidence of pleural fluid. IMPRESSION: 1. Mild cardiomegaly. 2. No acute abnormality is detected.
--- NOTE | 2017-05-05 14:25 | EKG ---
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
[2017-05-05] MEDS ORDERED: ACETAMINOPHEN 325 MG TABLET. PO ONE (15:00)
[2017-05-05] MEDS ORDERED: MORPHINE SULFATE 4 MG/ML DISP.SYRIN. IV ONE (17:00)
[2017-05-05] MEDS ORDERED: IV NORMAL SALINE 1000ML BAG 1,000 ML IV PRN (17:16)
[2017-05-05] MEDS ORDERED: DIALYSIS PATIENT. MC PRN (17:30)
[2017-05-05] MEDS ORDERED: 0.9 % SODIUM CHLORIDE 10 ML DISP.SYRIN. IV PRN ×2 (17:30)
[2017-05-05] MEDS ORDERED: diphenhydrAMINE 50 MG/ML VIAL IV PRN ×2 (17:30)
[2017-05-05] MEDS ORDERED: CALCIUM CARBONATE 500 MG TAB.CHEW PO PRN (22:30)
[2017-05-05] MEDS ORDERED: ACETAMINOPHEN 325 MG TABLET. PO PRN (22:30)
[2017-05-05] MEDS ORDERED: ONDANSETRON ODT 4 MG TAB.RAPDIS. PO PRN (22:30)
[2017-05-05 23:00] VITALS: BP 91/63
[2017-05-05] MEDS: INSULIN DETEMIR 300 UNITS/3 ML INSULN.PEN. SQ SCH (23:15)
[2017-05-05] MEDS: HYDROmorphone 4 MG TABLET PO PRN (23:16)
[2017-05-06] MEDS: PANTOPRAZOLE 40 MG TABLET.DR. PO SCH ×2 (00:10→20:58)
[2017-05-06 03:00] VITALS: BP 99/54
[2017-05-06 07:00] VITALS: BP 99/61
[2017-05-06 07:29] LABS: BASO # 0.1 x10^3/uL (0.0-0.2); BASO % 1 % (0-3); EOS % 3 % (0-3); HEMATOCRIT 38.1 % (36.0-47.0); HEMOGLOBIN 12.1 g/dL (12.0-15.5); LYMPH # 1.5 x10^3/uL (1.0-4.8); LYMPH % 20 % (24-48); MEAN CORPUSCULAR HEMOGLOBIN 28 pg (25-35); MEAN CORPUSCULAR HGB CONC 32 g/dL (31-37); MEAN CORPUSCULAR VOLUME 88 fL (79-100); MONO % 7 % (0-9); NEUT % 69 % (31-73); PLATELET COUNT 153 x10^3/uL (140-400); RED BLOOD COUNT 4.33 x10^6/uL (3.50-5.40); RED CELL DISTRIBUTION WIDTH 20.5 % (11.5-14.5); WHITE BLOOD COUNT 7.4 x10^3/uL (4.0-11.0)
[2017-05-06] MEDS: METOCLOPRAMIDE 10 MG TABLET. PO SCH ×4 (07:30→17:25)
[2017-05-06] MEDS: INSULIN ASPART 300 UNITS/3 ML INSULN.PEN SQ SCH ×5 (07:30→17:29)
[2017-05-06 07:45] LABS: ALBUMIN 2.7 g/dL (3.4-5.0); ALBUMIN/GLOBULIN RATIO 0.7 (1.0-1.7); CALCIUM 8.6 mg/dL (8.5-10.1); GFR 26.7; MAGNESIUM 1.7 mg/dL (1.8-2.4); POTASSIUM 3.6 mmol/L (3.5-5.1); TOTAL BILIRUBIN 0.3 mg/dL (0.2-1.0); TOTAL PROTEIN 6.7 g/dL (6.4-8.2)
[2017-05-06] MEDS: CARVEDILOL 3.125 MG TABLET. PO SCH ×2 (08:00→17:25)
[2017-05-06] MEDS: IPRATRPIUM/ALBUTEROL 0.5/2.5MG 3 ML NEBU. NEB SCH ×4 (08:03→20:38)
--- NOTE | 2017-05-06 08:59 | PDOC1 ---
YVONNE LAYNE [employer] LE[employer] INFORMATION CLERK 05/06/17 0859: HISTORY AND PHYSICAL Chief Complaint Chief Complaint This 46 year old female has been admitted with a chief complaint of chest pain, cough and chills. She was admitted recently for malfunctioning dialysis catheter on 04/29/17. It was changed and she was discharged home on . She reports a cough non productive with L ear pain that started 2 days ago. Her ear is better but still painful. Chills present but no fever. On 05/04 she developed sharp ant chest pain L sided that radiated up and over chest into upper back. Her upper back was burning radiating through to the anterior chest. Accompanying symptoms of nausea, shortness of breath, or palpitations were absent. The discomfort in her chest was relieved with one NTG sublingually. She is admitted for further evaluation and treatment. Problem List Problems Medical Problems: (1) Cough Status: Acute Past Medical History Cardiovascular: CAD, CHF (systolic EF 25% per CC February 2017), HTN, PA, Hyperlipidemia, Valve insufficiency (MVR, tricuspid regurg ), Other (DVT RLE recurrent with h/o DVT/PE anticoagulated with Eliquis, PVD) Pulmonary: COPD, Pulmonary embolus (chronic anticoagulation ), Other (JENNA with 2-3L NC -CPAP intolerant, h/o hypercapnic RF with narcotics ) CENTRAL NERVOUS SYSTEM: CVA, Periperal neuropathy GI: GERD Heme/Onc: Anemia NOS Hepatobiliary: Other (fatty liver) Psych: Anxiety, Depression Musculoskeletal: low back pain, Osteoarthritis Renal/: Chronic renal failure (ESRD HD MWF ) Endocrine: Diabetes (Type II chronic insulin neuropathy, PVD, diabetic ulcer R foot ), Hyperparathyroidism (secondary ) Past Surgical History Past Surgical History: Cholecystectomy, , Hernia Repair, Other (PCI stent coronary; IVC filter ) Past Family History Family History: Diabetes, Heart Disease, Hypertension Past Social History PSH lives with brother h/o tobacco, no ETOH or illicit drugs Review of Symptoms Review of Symptoms A 14 point ROS was completed with the following noted as positive: per HPI Other systems reviewed and negative. Medications Medications reviewed and reconciled Allergy Allergies Coded Allergies Type Severity Reaction Last Updated Verified Penicillins Allergy Severe causes swelling of throat 01/15/17 Yes Sulfa (Sulfonamide Antibiotics) Allergy Severe causes throat to swell 01/15/17 Yes amoxicillin Allergy Severe causes swelling of throat 01/15/17 Yes clarithromycin Allergy Severe causes throat to swell 01/15/17 Yes codeine Allergy Severe "closed up my throat and itching" 01/31/17 Yes hydrocodone Allergy Severe "closes up my throat and itching" 01/31/17 Yes silver sulfadiazine Allergy Severe Rash 01/15/17 Yes oxycodone Allergy Intermediate 01/15/17 Yes tramadol Allergy Intermediate Nausea and Vomiting 01/15/17 Yes I S O L A T I O N *CONTACT* Allergy Unknown 01/15/17 Yes Physical Exam Physical Exam General appearance - alert,well appearing, and in no distress Mental Status - alert, oriented to person, place, and time, affect appropriate to mood Head - normal Chest - clear to auscultation, no wheezes, rales or rhonchi, L sided chest wall tenderness anteriorly has resolved Heart - S1 and S2 normal Abdomen - soft, nontender, nondistended, BS + Neurological - no acute focal neurological deficits noted Musculoskeletal - no muscular tenderness noted Extremities - ++ with venous stasis changes, sloughing skin anterior lower legs , 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 Skin - warm and dry VTE Prophylaxis Ordered VTE Prophylaxis Devices: No VTE Pharmacological Prophylaxi: Yes Assessment Labs Laboratory Tests Test 05/05/17 13:44 05/05/17 20:38 05/06/17 06:35 White Blood Count 8.0 x10^3/uL (4.0-11.0) 7.4 x10^3/uL (4.0-11.0) Red Blood Count 4.74 x10^6/uL (3.50-5.40) 4.33 x10^6/uL (3.50-5.40) Hemoglobin 13.4 g/dL (12.0-15.5) 12.1 g/dL (12.0-15.5) Hematocrit 41.0 % (36.0-47.0) 38.1 % (36.0-47.0) Mean Corpuscular Volume 87 fL (79-100) 88 fL (79-100) Mean Corpuscular Hemoglobin 28 pg (25-35) 28 pg (25-35) Mean Corpuscular Hemoglobin Concent 33 g/dL (31-37) 32 g/dL (31-37) Red Cell Distribution Width 20.5 % (11.5-14.5) 20.5 % (11.5-14.5) Platelet Count 178 x10^3/uL (140-400) 153 x10^3/uL (140-400) Neutrophils (%) (Auto) 78 % (31-73) 69 % (31-73) Lymphocytes (%) (Auto) 15 % (24-48) 20 % (24-48) Monocytes (%) (Auto) 4 % (0-9) 7 % (0-9) Eosinophils (%) (Auto) 2 % (0-3) 3 % (0-3) Basophils (%) (Auto) 1 % (0-3) 1 % (0-3) Neutrophils # (Auto) 6.3 x10^3uL (1.8-7.7) 5.1 x10^3uL (1.8-7.7) Lymphocytes # (Auto) 1.2 x10^3/uL (1.0-4.8) 1.5 x10^3/uL (1.0-4.8) Monocytes # (Auto) 0.3 x10^3/uL (0.0-1.1) 0.5 x10^3/uL (0.0-1.1) Eosinophils # (Auto) 0.1 x10^3/uL (0.0-0.7) 0.2 x10^3/uL (0.0-0.7) Basophils # (Auto) 0.1 x10^3/uL (0.0-0.2) 0.1 x10^3/uL (0.0-0.2) Platelet Estimate Adequate (ADEQUATE) Anisocytosis Mod Sodium Level 142 mmol/L (136-145) 139 mmol/L (136-145) Potassium Level 4.5 mmol/L (3.5-5.1) 3.6 mmol/L (3.5-5.1) Chloride Level 104 mmol/L (98-107) 101 mmol/L (98-107) Carbon Dioxide Level 27 mmol/L (21-32) 28 mmol/L (21-32) Anion Gap 11 (6-14) 10 (6-14) Blood Urea Nitrogen 15 mg/dL (7-20) 10 mg/dL (7-20) Creatinine 2.1 mg/dL (0.6-1.0) 2.0 mg/dL (0.6-1.0) Estimated GFR (Cockcroft-Gault) 25.2 26.7 Glucose Level 361 mg/dL (70-99) 206 mg/dL (70-99) Calcium Level 8.3 mg/dL (8.5-10.1) 8.6 mg/dL (8.5-10.1) Troponin I Quantitative 0.027 ng/mL (0.000-0.055) Glucose (Fingerstick) 130 mg/dL (70-99) BUN/Creatinine Ratio 5 (6-20) Magnesium Level 1.7 mg/dL (1.8-2.4) Total Bilirubin 0.3 mg/dL (0.2-1.0) Aspartate Amino Transf (AST/SGOT) 16 U/L (15-37) Alanine Aminotransferase (ALT/SGPT) 16 U/L (14-59) Alkaline Phosphatase 121 U/L (46-116) Total Protein 6.7 g/dL (6.4-8.2) Albumin 2.7 g/dL (3.4-5.0) Albumin/Globulin Ratio 0.7 (1.0-1.7) Laboratory Tests Test 05/05/17 13:44 05/05/17 20:38 05/06/17 06:35 White Blood Count 8.0 x10^3/uL (4.0-11.0) 7.4 x10^3/uL (4.0-11.0) Red Blood Count 4.74 x10^6/uL (3.50-5.40) 4.33 x10^6/uL (3.50-5.40) Hemoglobin 13.4 g/dL (12.0-15.5) 12.1 g/dL (12.0-15.5) Hematocrit 41.0 % (36.0-47.0) 38.1 % (36.0-47.0) Mean Corpuscular Volume 87 fL (79-100) 88 fL (79-100) Mean Corpuscular Hemoglobin 28 pg (25-35) 28 pg (25-35) Mean Corpuscular Hemoglobin Concent 33 g/dL (31-37) 32 g/dL (31-37) Red Cell Distribution Width 20.5 % (11.5-14.5) 20.5 % (11.5-14.5) Platelet Count 178 x10^3/uL (140-400) 153 x10^3/uL (140-400) Neutrophils (%) (Auto) 78 % (31-73) 69 % (31-73) Lymphocytes (%) (Auto) 15 % (24-48) 20 % (24-48) Monocytes (%) (Auto) 4 % (0-9) 7 % (0-9) Eosinophils (%) (Auto) 2 % (0-3) 3 % (0-3) Basophils (%) (Auto) 1 % (0-3) 1 % (0-3) Neutrophils # (Auto) 6.3 x10^3uL (1.8-7.7) 5.1 x10^3uL (1.8-7.7) Lymphocytes # (Auto) 1.2 x10^3/uL (1.0-4.8) 1.5 x10^3/uL (1.0-4.8) Monocytes # (Auto) 0.3 x10^3/uL (0.0-1.1) 0.5 x10^3/uL (0.0-1.1) Eosinophils # (Auto) 0.1 x10^3/uL (0.0-0.7) 0.2 x10^3/uL (0.0-0.7) Basophils # (Auto) 0.1 x10^3/uL (0.0-0.2) 0.1 x10^3/uL (0.0-0.2) Platelet Estimate Adequate (ADEQUATE) Anisocytosis Mod Sodium Level 142 mmol/L (136-145) 139 mmol/L (136-145) Potassium Level 4.5 mmol/L (3.5-5.1) 3.6 mmol/L (3.5-5.1) Chloride Level 104 mmol/L (98-107) 101 mmol/L (98-107) Carbon Dioxide Level 27 mmol/L (21-32) 28 mmol/L (21-32) Anion Gap 11 (6-14) 10 (6-14) Blood Urea Nitrogen 15 mg/dL (7-20) 10 mg/dL (7-20) Creatinine 2.1 mg/dL (0.6-1.0) 2.0 mg/dL (0.6-1.0) Estimated GFR (Cockcroft-Gault) 25.2 26.7 Glucose Level 361 mg/dL (70-99) 206 mg/dL (70-99) Calcium Level 8.3 mg/dL (8.5-10.1) 8.6 mg/dL (8.5-10.1) Troponin I Quantitative 0.027 ng/mL (0.000-0.055) Glucose (Fingerstick) 130 mg/dL (70-99) BUN/Creatinine Ratio 5 (6-20) Magnesium Level 1.7 mg/dL (1.8-2.4) Total Bilirubin 0.3 mg/dL (0.2-1.0) Aspartate Amino Transf (AST/SGOT) 16 U/L (15-37) Alanine Aminotransferase (ALT/SGPT) 16 U/L (14-59) Alkaline Phosphatase 121 U/L (46-116) Total Protein 6.7 g/dL (6.4-8.2) Albumin 2.7 g/dL (3.4-5.0) Albumin/Globulin Ratio 0.7 (1.0-1.7) Plan Plan 1. chest pain L anterior 2. L ear pain 3. A/C systolic CHF EF 25% per CC 4. chronic chest wall pain costochondritis 5. ESRD requiring hemodialysis 6. DVT RLE 12/11/16 on Eliquis with h/o PE, DVT RLE & IVC filte 7. DM II with neuropathy, PVD, chronic insulin use 8. anxiety/depression 9. HTN 10. hyperlipidemia 11. CAD with h/o PA and PCI with stent placed 12. GERD 13. chronic LBP 15. h/o hypercapnic/hypoxic respiratory failure with narcotics 13. 16. h/o CVA 17. COPD with remote h/o tobacco abuse 18. h/o urine retention 19. 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 morbid obesity 21. JENNA O2 3L NC at hs (CPAP in tolerant) 22. severe chronic PCL malnutrition 23. anemia CD renal PLAN: L sided chest pain-chest wall tenderness now subsided NTG subling relieved chest pain/burning post upper back pain cardiology consult L ear pain otoscope being obtained ESRD nephrology consulted HD missed 05/05 Admit K 4.5 05/06 3.6 04/30 new placement dialysis catheter, pt reports chills despite using electric blanket, will obtain BC x 2 DM II NPO -Levemir 30 units this am (1/2 dose), Hold Novolog 45u and ssi FSBS/SSI Glucose 130-361 HTN BP 90s systolic through night, MAP 69-74 DVT/GI prophylaxis eliquis PPI For more details regarding further plans, please refer to the orders. CHELE SINGH MD 05/06/17 1037: HISTORY AND PHYSICAL Plan Plan Patient had blood in her panty- very small amount for 2 days- Eliquis was held for 2 days.Etiology not clear. She is better now.Restart Eliquis.Check u/a. Both ears- TM ok,no swelling,no redness. She wants more pain meds.s/e d/w her. The patient was seen and examined by me. Chart reviewed and plan of care formulated. Discussed with, reviewed and agree with EXPERIMENTAL FLIGHT TEST MECHANIC's notes, plan of care and orders with modifications as necessary. For more details regarding further plans, please refer to the orders. YVONNE LAYNE APRN May 06, 2017 08:59 CHELE SINGH MD May 06, 2017 10:37
[2017-05-06] MEDS ORDERED: VENLAFAXINE XR 37.5 MG CAP.ER.24H. PO SCH (09:00)
[2017-05-06] MEDS: MUPIROCIN 2 % NASAL OINTMENT 22GM TUBE. NS SCH ×3 (09:00→20:55)
[2017-05-06] MEDS: INSULIN DETEMIR 300 UNITS/3 ML INSULN.PEN. SQ SCH ×2 (09:05→20:54)
[2017-05-06] MEDS: HYDROmorphone 4 MG TABLET PO PRN ×2 (09:42→19:53)
[2017-05-06] MEDS: AMMONIUM LACTATE 12% TOPICAL LOTION 226GM BOTTLE. TP SCH ×2 (09:53→20:59)
[2017-05-06 11:00] VITALS: BP 95/51
--- NOTE | 2017-05-06 11:37 | PDOC2 ---
TAN KILLIAN ACCOUNT REPRESENTATIVE 05/06/17 1137: CARDIAC CONSULT DATE OF CONSULT Date of Consult DATE: 05/06/17 TIME: 11:28 REASON FOR CONSULT Reason for Consult: Chest pain REFERRING PHYSICIAN Referring Physician: Alex SOURCE Source: Chart review, Patient HISTORY OF PRESENT ILLNESS HISTORY OF PRESENT ILLNESS This is a pleasant 46 yo female admitted for complains of chest pain. Started right chest sharp radiated to left chest. No associated SOA or palpitations. Reports that she has been having nonproductive cough. Also has been having heartburn in which she has been taking peptobismol and mylanta. Presently no complains of CP. She has CAD with recent LHC which was unremarkable. PAST MEDICAL HISTORY Past Medical History Cardiovascular: CAD, CHF (cardiomyopathy), HTN, KS, Hyperlipidemia, Other (PVD) Pulmonary: COPD, Pulmonary embolus, Other (JENNA - untreated) CENTRAL NERVOUS SYSTEM: CVA, Peripheral neuropathy GI: GERD, morbid obesity Heme/Onc: Anemia NOS Hepatobiliary: No pertinent hx Psych: Anxiety, Depression Musculoskeletal: low back pain, Osteoarthritis, Other (DVT RLE) Infectious disease: Other (C-diff, pseudomonas) ENT: No pertinent hx Renal/: Chronic renal insuff (ESRD) - left tunneled HD cath Endocrine: Diabetes (2) Dermatology: Other (right foot ulcer with osteomyelitis) PAST SURGICAL HISTORY Past Surgical History Cholecystectomy, , Hernia Repair, Other (toe amputation; IVC filter, recent right foot I & D 12/2016), PCIstent in the past. Recent LHC with patent LAD stent 02/2017 FAMILY HISTORY Family History Diabetes, Heart Disease, Hypertension SOCIAL HISTORY Smoke: No ALCOHOL: none Drugs: None CURRENT MEDICATIONS CURRENT MEDICATIONS Current Medications Medications (Trade) Dose Ordered Sig/Ant Route PRN Reason Start Time Stop Time Status Last Admin Dose Admin Nitroglycerin (Nitrostat) 0.4 mg PRN Q5MIN PRN SL CP RATING > 1/10 05/05/17 13:45 05/06/17 13:44 05/05/17 14:05 Acetaminophen (Tylenol) 650 mg 1X ONCE PO 05/05/17 15:00 05/05/17 15:01 DC 05/05/17 14:50 Morphine Sulfate 4 mg 1X ONCE IV 05/05/17 17:00 05/05/17 17:01 DC 05/05/17 16:47 Hydromorphone HCl (Dilaudid) 4 mg PRN Q6HRS PRN PO PAIN 05/05/17 22:30 05/06/17 09:42 Albuterol/ Ipratropium (Duoneb) 3 ml RTQID NEB 05/06/17 08:00 05/06/17 08:03 Ondansetron HCl (Zofran Odt) 4 mg PRN Q6HRS PRN PO NAUSEA/VOMITING 05/05/17 22:30 05/06/17 09:53 Insulin Detemir (Levemir) 60 units BID SQ 05/05/17 23:15 05/06/17 09:05 Pantoprazole Sodium (Protonix) 40 mg HS PO 05/05/17 23:00 05/06/17 00:10 Lactic Acid (Lac-Hydrin) 1 stephanie BID TP 05/06/17 09:00 05/06/17 09:53 ALLERGIES ALLERGIES: Coded Allergies: Penicillins (Verified Allergy, Severe, causes swelling of throat, 01/15/17) Sulfa (Sulfonamide Antibiotics) (Verified Allergy, Severe, causes throat to swell, 01/15/17) amoxicillin (Verified Allergy, Severe, causes swelling of throat, 01/15/17) clarithromycin (Verified Allergy, Severe, causes throat to swell, 01/15/17) codeine (Verified Allergy, Severe, "closed up my throat and itching", 01/31) tolerates percocet, Dilaudid is home med hydrocodone (Verified Allergy, Severe, "closes up my throat and itching", 01/31/17) tolerates percocet, Dilaudid is home med silver sulfadiazine (Verified Allergy, Severe, Rash, 01/15/17) oxycodone (Verified Allergy, Intermediate, 01/15/17) tramadol (Verified Allergy, Intermediate, Nausea and Vomiting, 01/15/17) I S O L A T I O N *CONTACT* (Verified Allergy, Unknown, 01/15/17) mrsa ROS Review of System 14 point ROS evaluated with pertinent positives noted per HPI PHYSICAL EXAM General: Alert, Oriented X3, Cooperative, No acute distress HEENT: Atraumatic, Mucous membr. moist/pink Lungs: Clear to auscultation, Normal air movement Heart: Regular rate (SR), Normal S1, Normal S2, Other (2/6 systolic murmur to LLS border) Abdomen: Soft, No tenderness, Other (obese) Extremities: No cyanosis, Other (1-2+ bilateral LE pitting edema) Skin: No significant lesion, Other (LE venous dermatitis) Neuro: Normal speech, Normal tone Psych/Mental Status: Mood NL MUSCULOSKELETAL: Osteoarthritic changes both hands VITALS VITALS Vital Signs Date Time Temp Pulse Resp B/P (MAP) Pulse Ox O2 Delivery O2 Flow Rate FiO2 05/06/17 08:08 94 Nasal Cannula 3.0 05/06/17 08:00 80 99/61 05/06/17 07:00 98.0 18 98.0 LABS Lab: Laboratory Tests Test 05/05/17 13:44 05/05/17 20:38 05/06/17 06:35 White Blood Count 8.0 x10^3/uL (4.0-11.0) 7.4 x10^3/uL (4.0-11.0) Red Blood Count 4.74 x10^6/uL (3.50-5.40) 4.33 x10^6/uL (3.50-5.40) Hemoglobin 13.4 g/dL (12.0-15.5) 12.1 g/dL (12.0-15.5) Hematocrit 41.0 % (36.0-47.0) 38.1 % (36.0-47.0) Mean Corpuscular Volume 87 fL (79-100) 88 fL (79-100) Mean Corpuscular Hemoglobin 28 pg (25-35) 28 pg (25-35) Mean Corpuscular Hemoglobin Concent 33 g/dL (31-37) 32 g/dL (31-37) Red Cell Distribution Width 20.5 % (11.5-14.5) 20.5 % (11.5-14.5) Platelet Count 178 x10^3/uL (140-400) 153 x10^3/uL (140-400) Neutrophils (%) (Auto) 78 % (31-73) 69 % (31-73) Lymphocytes (%) (Auto) 15 % (24-48) 20 % (24-48) Monocytes (%) (Auto) 4 % (0-9) 7 % (0-9) Eosinophils (%) (Auto) 2 % (0-3) 3 % (0-3) Basophils (%) (Auto) 1 % (0-3) 1 % (0-3) Neutrophils # (Auto) 6.3 x10^3uL (1.8-7.7) 5.1 x10^3uL (1.8-7.7) Lymphocytes # (Auto) 1.2 x10^3/uL (1.0-4.8) 1.5 x10^3/uL (1.0-4.8) Monocytes # (Auto) 0.3 x10^3/uL (0.0-1.1) 0.5 x10^3/uL (0.0-1.1) Eosinophils # (Auto) 0.1 x10^3/uL (0.0-0.7) 0.2 x10^3/uL (0.0-0.7) Basophils # (Auto) 0.1 x10^3/uL (0.0-0.2) 0.1 x10^3/uL (0.0-0.2) Platelet Estimate Adequate (ADEQUATE) Anisocytosis Mod Sodium Level 142 mmol/L (136-145) 139 mmol/L (136-145) Potassium Level 4.5 mmol/L (3.5-5.1) 3.6 mmol/L (3.5-5.1) Chloride Level 104 mmol/L (98-107) 101 mmol/L (98-107) Carbon Dioxide Level 27 mmol/L (21-32) 28 mmol/L (21-32) Anion Gap 11 (6-14) 10 (6-14) Blood Urea Nitrogen 15 mg/dL (7-20) 10 mg/dL (7-20) Creatinine 2.1 mg/dL (0.6-1.0) 2.0 mg/dL (0.6-1.0) Estimated GFR (Cockcroft-Gault) 25.2 26.7 Glucose Level 361 mg/dL (70-99) 206 mg/dL (70-99) Calcium Level 8.3 mg/dL (8.5-10.1) 8.6 mg/dL (8.5-10.1) Troponin I Quantitative 0.027 ng/mL (0.000-0.055) Glucose (Fingerstick) 130 mg/dL (70-99) BUN/Creatinine Ratio 5 (6-20) Magnesium Level 1.7 mg/dL (1.8-2.4) Total Bilirubin 0.3 mg/dL (0.2-1.0) Aspartate Amino Transf (AST/SGOT) 16 U/L (15-37) Alanine Aminotransferase (ALT/SGPT) 16 U/L (14-59) Alkaline Phosphatase 121 U/L (46-116) Total Protein 6.7 g/dL (6.4-8.2) Albumin 2.7 g/dL (3.4-5.0) Albumin/Globulin Ratio 0.7 (1.0-1.7) ECHOCARDIOGRAM ECHOCARDIOGRAM <Conclusion> The Left Ventricle is mildly dilated. The systolic function is moderate to severely impaired. The Ejection Fraction is 30-35%. There is global hypokinesis of the left ventricle. There is no significant aortic valvular stenosis. Doppler and Color Flow revealed no significant aortic regurgitation. Doppler and Color-flow revealed mild mitral regurgitation. Doppler and Color Flow revealed trace tricuspid regurgitation. The PA pressure was estimated at 22 mmHg. DATE: 07/14/16 1749 HEART CATH HEART CATH CORONARY ANGIOGRAPHY: LM is a large caliber vessel with normal angiographic appearance. LAD is a large caliber vessel with a patent proximal stent. D1/D2 are small caliber vessels with normal angiographic apeparance. LCx is a moderate caliber non-dominant vessel with normal angiographic appearance. OM1 is a moderate caliber vessel with normal angiographic appearance. RCA is a large caliber dominant vessel with normal angiographic appearance. RPDA and RPL are small caliber vessels with normal angiographic appearance. Conclusion 1. Severe LV dysfunction. EF 25%. 2. LVEDP 35 mm Hg 3. Patent LAD stent. Recommendations Aggressive Medical Therapy DATE: 02/18/17 1518 ASSESSMENT/PLAN ASSESSMENT/PLAN 1. Atypical CP: Recent 02/2017 LHC unremarkable with patent stent to LAD. Non cardiac. Likely GERD exacerbation 2. CAD 3. ICM: has declined repeatedly of AICD. NYHA2-3 4 Chronic systolic CHF: compensated 5. HTN: controlled 6. ESRD with HD Recommendations 1. No further cardiac testing 2. Continue secondary prevention 3. Fluid off loading per HD 4. Follow up with [employer] video production engineer Problems: SHEREEN ORTIZ MD 05/06/17 2012: CARDIAC CONSULT ALLERGIES ALLERGIES: Coded Allergies: Penicillins (Verified Allergy, Severe, causes swelling of throat, 01/15/17) Sulfa (Sulfonamide Antibiotics) (Verified Allergy, Severe, causes throat to swell, 01/15/17) amoxicillin (Verified Allergy, Severe, causes swelling of throat, 01/15/17) clarithromycin (Verified Allergy, Severe, causes throat to swell, 01/15/17) codeine (Verified Allergy, Severe, "closed up my throat and itching", 01/31) tolerates percocet, Dilaudid is home med hydrocodone (Verified Allergy, Severe, "closes up my throat and itching", 01/31/17) tolerates percocet, Dilaudid is home med silver sulfadiazine (Verified Allergy, Severe, Rash, 01/15/17) oxycodone (Verified Allergy, Intermediate, 01/15/17) tramadol (Verified Allergy, Intermediate, Nausea and Vomiting, 01/15/17) I S O L A T I O N *CONTACT* (Verified Allergy, Unknown, 01/15/17) mrsa ASSESSMENT/PLAN ASSESSMENT/PLAN Patient seen and examined. Agree with BAKE ROOM WORKER's assessment and plan. CP with atypical features and most probably GI etiology KS ruled out. Chronic systolic heart failure compensated. Continue HD per nephrology team. Thank you for your consultation. Problems: TAN KILLIAN APRN May 06, 2017 11:37 SHEREEN ORTIZ MD May 06, 2017 20:12
[2017-05-06] MEDS: ASPIRIN ENTERIC COATED 81 MG TABLET.DR. PO SCH (11:58)
[2017-05-06] MEDS: ASCORBIC ACID 500 MG TABLET PO SCH (11:59)
[2017-05-06] MEDS: MAGNESIUM OXIDE 400 MG TABLET PO SCH ×3 (11:59→20:59)
[2017-05-06] MEDS ORDERED: ANTI-COAG MONITOR BY PHARMACY. MC PRN (12:15)
--- NOTE | 2017-05-06 13:18 | PDOC2 ---
CONSULT Date of Consult Date of Consult DATE: 05/06/17 TIME: 13:15 Reason for Consult Reason for Consult: ESRD Referring Physician Referring Physician: FRANCISCO Identification/Chief Complaint Chief Complaint CHEST PAIN Problems: History of Present Illness Reason for Visit: THIS IS A 46 YR OLD ADMITTED WITH CHEST PAIN. HX POS FOR ESRD. 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, PVD) Pulmonary: COPD, Pulmonary embolus (chronic anticoagulation ), Other (JENNA with 2-3L NC -CPAP intolerant, h/o hypercapnic RF with narcotics ) CENTRAL NERVOUS SYSTEM: CVA, Periperal neuropathy GI: GERD Heme/Onc: Anemia NOS Hepatobiliary: Other (fatty liver) Psych: Anxiety, Depression Musculoskeletal: low back pain, Osteoarthritis Renal/: Chronic renal failure (ESRD HD MWF ) Endocrine: Diabetes (Type II chronic insulin neuropathy, PVD, diabetic ulcer R foot ), Hyperparathyroidism (secondary ) Past Surgical History Past Surgical History: Cholecystectomy, , Hernia Repair, Other (PCI stent coronary; IVC filter ) Family History Family History: Diabetes, Heart Disease, Hypertension Social History No ALCOHOL: none Drugs: None Lives: with Family Current Problem List Problem List Problems Medical Problems: (1) Cough Status: Acute Current Medications Current Medications Current Medications Nitroglycerin (Nitrostat) 0.4 mg PRN Q5MIN PRN SL CP RATING > 1/10 Last administered on 05/05/17 14:05; Start 05/05/17 at 13:45; Stop 05/06/17 at 13:44 Acetaminophen (Tylenol) 650 mg 1X ONCE PO Last administered on 05/05/17 14:50 ; Start 05/05/17 at 15:00; Stop 05/05/17 at 15:01; Status DC Morphine Sulfate 4 mg 1X ONCE IV Last administered on 05/05/17 16:47; Start 05/05/17 at 17:00; Stop 05/05/17 at 17:01; Status DC Sodium Chloride 1,000 ml @ 1,000 mls/hr Q1H PRN IV hypotension; Start 05/05/17 at 17:16; Stop 05/05/17 at 23:15; Status DC Diphenhydramine HCl (Benadryl) 25 mg 1X PRN PRN IV ITCHING; Start 05/05/17 at 17:30; Stop 05/06/17 at 17:29 Diphenhydramine HCl (Benadryl) 25 mg 1X PRN PRN IV ITCHING; Start 05/05/17 at 17:30; Stop 05/06/17 at 17:29 Sodium Chloride (Normal Saline Flush) 10 ml 1X PRN PRN IV AP catheter pack; Start 05/05/17 at 17:30; Stop 05/06/17 at 17:29 Sodium Chloride (Normal Saline Flush) 10 ml 1X PRN PRN IV EMERGING TECHNOLOGIES DIRECTOR catheter pack; Start 05/05/17 at 17:30; Stop 05/06/17 at 17:29 Info (PHARMACY MONITORING -- do not chart) 1 each PRN DAILY PRN MC SEE COMMENTS ; Start 05/05/17 at 17:30 Acetaminophen (Tylenol) 650 mg PRN Q6HRS PRN PO MILD PAIN / TEMP; Start at 22:30 Ascorbic Acid (Vitamin C) 500 mg DAILY PO Last administered on 05/06/17 11:59 ; Start 05/06/17 at 09:00 Calcium Carbonate/ Glycine (Tums) 500 mg PRN AFTMEALHC PRN PO INDIGESTION; Start 05/05/17 at 22:30 Carvedilol (Coreg) 3.125 mg BIDWMEALS PO ; Start 05/06/17 at 08:00 Fentanyl (Duragesic 50mcg/ Hr Patch) 1 patch Q3DAYS TD ; Start 05/08/17 at 09:00 Hydromorphone HCl (Dilaudid) 4 mg PRN Q6HRS PRN PO PAIN Last administered on 09:42; Start 05/05/17 at 22:30 Albuterol/ Ipratropium (Duoneb) 3 ml RTQID NEB Last administered on 05/06/17 11:42; Start 05/06/17 at 08:00 Magnesium Oxide (Magnesium Oxide) 400 mg TID PO Last administered on 05/06/17 11:59; Start 05/06/17 at 09:00 Metoclopramide HCl (Reglan) 5 mg TIDAC PO Last administered on 05/06/17 11:30 ; Start 05/06/17 at 07:30 Nitroglycerin (Nitrostat) 0.4 mg PRN Q5MIN PRN SL CHEST PAIN; Start 05/05/17 at 22:30 Ondansetron HCl (Zofran Odt) 4 mg PRN Q6HRS PRN PO NAUSEA/VOMITING Last administered on 05/06/17 09:53; Start 05/05/17 at 22:30 Venlafaxine HCl (Effexor Xr) 37.5 mg DAILY PO ; Start 05/06/17 at 09:00; Stop at 09:00; Status DC Insulin Aspart (NovoLOG) 45 units TIDAC SQ Last administered on 05/06/17 12:03 ; Start 05/06/17 at 07:30 Insulin Detemir (Levemir) 60 units BID SQ Last administered on 05/06/17 09:05 ; Start 05/05/17 at 23:15 Pantoprazole Sodium (Protonix) 40 mg HS PO Last administered on 05/06/17 00:10 ; Start 05/05/17 at 23:00 Apixaban (Eliquis) 5 mg DAILY PO ; Start 05/06/17 at 21:00 Aspirin (Ecotrin) 81 mg DAILY PO Last administered on 05/06/17 11:58; Start at 09:00 Atorvastatin Calcium (Lipitor) 40 mg HS PO ; Start 05/06/17 at 21:00 Insulin Aspart (NovoLOG) 0-8 UNITS TIDAC SQ ; Start 05/06/17 at 11:30 Mupirocin (Bactroban) 1 stephanie BID NS ; Start 05/06/17 at 09:00 Lactic Acid (Lac-Hydrin) 1 stephanie BID TP Last administered on 05/06/17 09:53; Start 05/06/17 at 09:00 Info (Anti-Coagulation Monitoring By Pharmacy) 1 each PRN DAILY PRN MC SEE COMMENTS Last administered on 05/06/17 12:06; Start 05/06/17 at 12:15 Active Scripts Active Novolog (Insulin Aspart) 100 Unit/1 Ml Cartridge 45 Unit SQ TIDAC Inject TID AC Lantus Solostar (Insulin Glargine,Hum.rec.anlog) 100 Unit/1 Ml Insuln.pen 60 Unit SQ BID Inject sub q bid Effexor Xr (Venlafaxine Hcl) 37.5 Mg Cap.er.24h 37.5 Cap PO DAILY Take 3 cap po daily Dilaudid (Hydromorphone Hcl) 4 Mg Tablet 1 Tab PO PRN Q6HRS PRN Tylenol (Acetaminophen) 325 Mg Tablet 650 Mg PO PRN Q6HRS PRN Metoclopramide Hcl 10 Mg Tablet 5 Mg PO TIDAC Calcium Carbonate 200 Mg Tab.chew 500 Mg PO PRN AFTMEALHC PRN Vitamin C (Ascorbic Acid) 500 Mg Tablet 500 Mg PO DAILY Eliquis (Apixaban) 5 Mg Tablet 5 Mg PO BID FENTANYL 50mcg/hr (Fentanyl) 1 Each Patch.td72 1 Patch TD Q3DAYS Coreg (Carvedilol) 3.125 Mg Tablet 1 Tab PO BID Zofran Odt (Ondansetron) 4 Mg Tab.rapdis 1 Tab SL PRN Q6HRS PRN Duoneb 0.5-3(2.5) Mg/3 Ml (Albuterol/Ipratropium) 3 Ml Ampul.neb 3 Ml NEB RTQID Reported Magnesium Oxide 400 Mg Tablet 400 Mg PO TID Aspir 81 (Aspirin) 81 Mg Tablet. 81 Mg PO DAILY Nitrostat (Nitroglycerin) 0.4 Mg Tab.subl 0.4 Mg SL PRN Q5MIN PRN Atorvastatin Calcium 40 Mg Tablet 40 Mg PO HS Omeprazole 20 Mg Capsule.dr 20 Mg PO HS Allergies Allergies: Coded Allergies: Penicillins (Verified Allergy, Severe, causes swelling of throat, 01/15/17) Sulfa (Sulfonamide Antibiotics) (Verified Allergy, Severe, causes throat to swell, 01/15/17) amoxicillin (Verified Allergy, Severe, causes swelling of throat, 01/15/17) clarithromycin (Verified Allergy, Severe, causes throat to swell, 01/15/17) codeine (Verified Allergy, Severe, "closed up my throat and itching", 01/31) tolerates percocet, Dilaudid is home med hydrocodone (Verified Allergy, Severe, "closes up my throat and itching", 01/31/17) tolerates percocet, Dilaudid is home med silver sulfadiazine (Verified Allergy, Severe, Rash, 01/15/17) oxycodone (Verified Allergy, Intermediate, 01/15/17) tramadol (Verified Allergy, Intermediate, Nausea and Vomiting, 01/15/17) I S O L A T I O N *CONTACT* (Verified Allergy, Unknown, 01/15/17) mrsa ROS General: YES: Fatigue PSYCHOLOGICAL ROS: YES: Behavioral Disorder Eyes: Yes Decreased vision HEENT: YES: Heacaches Respiratory: YES: Cough, Shortness of breath Gastrointestinal: Yes Constipation Genitourinary: YES Other (ANURIA) Musculoskeletal: Yes Muscular Weakness Neurological: Yes Weakness Skin: Yes Dry Skin Physical Exam General: Alert, Oriented X3, Cooperative, No acute distress HEENT: Atraumatic, PERRLA Lungs: Clear to auscultation Heart: Regular rate Abdomen: Normal bowel sounds, Soft, No tenderness Extremities: No clubbing Neuro: Normal speech, Cranial nerves 3-12 NL Psych/Mental Status: Mental status NL, Mood NL MUSCULOSKELETAL: No deformity, No swelling Vitals VITALS Vital Signs Date Time Temp Pulse Resp B/P (MAP) Pulse Ox O2 Delivery O2 Flow Rate FiO2 05/06/17 11:44 Room Air 05/06/17 11:00 99.5 87 16 95/51 (66) 94 99.5 05/06/17 08:08 3.0 Labs Labs Laboratory Tests Test 05/05/17 13:44 05/05/17 20:38 05/06/17 06:35 05/06/17 07:45 White Blood Count 8.0 x10^3/uL (4.0-11.0) 7.4 x10^3/uL (4.0-11.0) Red Blood Count 4.74 x10^6/uL (3.50-5.40) 4.33 x10^6/uL (3.50-5.40) Hemoglobin 13.4 g/dL (12.0-15.5) 12.1 g/dL (12.0-15.5) Hematocrit 41.0 % (36.0-47.0) 38.1 % (36.0-47.0) Mean Corpuscular Volume 87 fL (79-100) 88 fL (79-100) Mean Corpuscular Hemoglobin 28 pg (25-35) 28 pg (25-35) Mean Corpuscular Hemoglobin Concent 33 g/dL (31-37) 32 g/dL (31-37) Red Cell Distribution Width 20.5 % (11.5-14.5) 20.5 % (11.5-14.5) Platelet Count 178 x10^3/uL (140-400) 153 x10^3/uL (140-400) Neutrophils (%) (Auto) 78 % (31-73) 69 % (31-73) Lymphocytes (%) (Auto) 15 % (24-48) 20 % (24-48) Monocytes (%) (Auto) 4 % (0-9) 7 % (0-9) Eosinophils (%) (Auto) 2 % (0-3) 3 % (0-3) Basophils (%) (Auto) 1 % (0-3) 1 % (0-3) Neutrophils # (Auto) 6.3 x10^3uL (1.8-7.7) 5.1 x10^3uL (1.8-7.7) Lymphocytes # (Auto) 1.2 x10^3/uL (1.0-4.8) 1.5 x10^3/uL (1.0-4.8) Monocytes # (Auto) 0.3 x10^3/uL (0.0-1.1) 0.5 x10^3/uL (0.0-1.1) Eosinophils # (Auto) 0.1 x10^3/uL (0.0-0.7) 0.2 x10^3/uL (0.0-0.7) Basophils # (Auto) 0.1 x10^3/uL (0.0-0.2) 0.1 x10^3/uL (0.0-0.2) Platelet Estimate Adequate (ADEQUATE) Anisocytosis Mod Sodium Level 142 mmol/L (136-145) 139 mmol/L (136-145) Potassium Level 4.5 mmol/L (3.5-5.1) 3.6 mmol/L (3.5-5.1) Chloride Level 104 mmol/L (98-107) 101 mmol/L (98-107) Carbon Dioxide Level 27 mmol/L (21-32) 28 mmol/L (21-32) Anion Gap 11 (6-14) 10 (6-14) Blood Urea Nitrogen 15 mg/dL (7-20) 10 mg/dL (7-20) Creatinine 2.1 mg/dL (0.6-1.0) 2.0 mg/dL (0.6-1.0) Estimated GFR (Cockcroft-Gault) 25.2 26.7 Glucose Level 361 mg/dL (70-99) 206 mg/dL (70-99) Calcium Level 8.3 mg/dL (8.5-10.1) 8.6 mg/dL (8.5-10.1) Troponin I Quantitative 0.027 ng/mL (0.000-0.055) Glucose (Fingerstick) 130 mg/dL (70-99) 197 mg/dL (70-99) BUN/Creatinine Ratio 5 (6-20) Magnesium Level 1.7 mg/dL (1.8-2.4) Total Bilirubin 0.3 mg/dL (0.2-1.0) Aspartate Amino Transf (AST/SGOT) 16 U/L (15-37) Alanine Aminotransferase (ALT/SGPT) 16 U/L (14-59) Alkaline Phosphatase 121 U/L (46-116) Total Protein 6.7 g/dL (6.4-8.2) Albumin 2.7 g/dL (3.4-5.0) Albumin/Globulin Ratio 0.7 (1.0-1.7) Test 05/06/17 11:45 Glucose (Fingerstick) 210 mg/dL (70-99) Laboratory Tests Test 05/05/17 13:44 05/05/17 20:38 05/06/17 06:35 05/06/17 07:45 White Blood Count 8.0 x10^3/uL (4.0-11.0) 7.4 x10^3/uL (4.0-11.0) Red Blood Count 4.74 x10^6/uL (3.50-5.40) 4.33 x10^6/uL (3.50-5.40) Hemoglobin 13.4 g/dL (12.0-15.5) 12.1 g/dL (12.0-15.5) Hematocrit 41.0 % (36.0-47.0) 38.1 % (36.0-47.0) Mean Corpuscular Volume 87 fL (79-100) 88 fL (79-100) Mean Corpuscular Hemoglobin 28 pg (25-35) 28 pg (25-35) Mean Corpuscular Hemoglobin Concent 33 g/dL (31-37) 32 g/dL (31-37) Red Cell Distribution Width 20.5 % (11.5-14.5) 20.5 % (11.5-14.5) Platelet Count 178 x10^3/uL (140-400) 153 x10^3/uL (140-400) Neutrophils (%) (Auto) 78 % (31-73) 69 % (31-73) Lymphocytes (%) (Auto) 15 % (24-48) 20 % (24-48) Monocytes (%) (Auto) 4 % (0-9) 7 % (0-9) Eosinophils (%) (Auto) 2 % (0-3) 3 % (0-3) Basophils (%) (Auto) 1 % (0-3) 1 % (0-3) Neutrophils # (Auto) 6.3 x10^3uL (1.8-7.7) 5.1 x10^3uL (1.8-7.7) Lymphocytes # (Auto) 1.2 x10^3/uL (1.0-4.8) 1.5 x10^3/uL (1.0-4.8) Monocytes # (Auto) 0.3 x10^3/uL (0.0-1.1) 0.5 x10^3/uL (0.0-1.1) Eosinophils # (Auto) 0.1 x10^3/uL (0.0-0.7) 0.2 x10^3/uL (0.0-0.7) Basophils # (Auto) 0.1 x10^3/uL (0.0-0.2) 0.1 x10^3/uL (0.0-0.2) Platelet Estimate Adequate (ADEQUATE) Anisocytosis Mod Sodium Level 142 mmol/L (136-145) 139 mmol/L (136-145) Potassium Level 4.5 mmol/L (3.5-5.1) 3.6 mmol/L (3.5-5.1) Chloride Level 104 mmol/L (98-107) 101 mmol/L (98-107) Carbon Dioxide Level 27 mmol/L (21-32) 28 mmol/L (21-32) Anion Gap 11 (6-14) 10 (6-14) Blood Urea Nitrogen 15 mg/dL (7-20) 10 mg/dL (7-20) Creatinine 2.1 mg/dL (0.6-1.0) 2.0 mg/dL (0.6-1.0) Estimated GFR (Cockcroft-Gault) 25.2 26.7 Glucose Level 361 mg/dL (70-99) 206 mg/dL (70-99) Calcium Level 8.3 mg/dL (8.5-10.1) 8.6 mg/dL (8.5-10.1) Troponin I Quantitative 0.027 ng/mL (0.000-0.055) Glucose (Fingerstick) 130 mg/dL (70-99) 197 mg/dL (70-99) BUN/Creatinine Ratio 5 (6-20) Magnesium Level 1.7 mg/dL (1.8-2.4) Total Bilirubin 0.3 mg/dL (0.2-1.0) Aspartate Amino Transf (AST/SGOT) 16 U/L (15-37) Alanine Aminotransferase (ALT/SGPT) 16 U/L (14-59) Alkaline Phosphatase 121 U/L (46-116) Total Protein 6.7 g/dL (6.4-8.2) Albumin 2.7 g/dL (3.4-5.0) Albumin/Globulin Ratio 0.7 (1.0-1.7) Test 05/06/17 11:45 Glucose (Fingerstick) 210 mg/dL (70-99) Assessment/Plan Assessment/Plan IMP ESRD ANEMIA DM II HTN CHEST PAIN PLAN HOLD HATTIE HD LAST NIGHT HD MWF CHEST PAIN SARA RODRIGUEZ MD May 06, 2017 13:18
[2017-05-06 15:00] VITALS: BP 104/66
[2017-05-06 19:00] VITALS: BP 98/69
[2017-05-06] MEDS: APIXABAN 5 MG TABLET. PO SCH (20:59)
[2017-05-06] MEDS ORDERED: ATORVASTATIN CALCIUM 40 MG TABLET. PO SCH (21:00)
[2017-05-06 21:49] LABS: BILIRUBIN,URINE SMALL (NEG); GLUCOSE,URINE 250 mg/dL (NEG); NITRITE,URINE NEGATIVE (NEG); PH,URINE 5.5; PROTEIN,URINE >=300 mg/dL (NEG-TRACE)
[2017-05-06 21:54] LABS: BACTERIA,URINE FEW /HPF (0-FEW); SQUAMOUS EPITHELIAL CELL,UR MOD /LPF
[2017-05-06 21:55] LABS: YEAST,URINE PRESENT /HPF
[2017-05-06 23:44] VITALS: BP 92/52
[2017-05-07 03:00] VITALS: BP 99/65
[2017-05-07] MEDS: HYDROmorphone 4 MG TABLET PO PRN (04:54)
[2017-05-07 05:03] LABS: BASO # 0.1 x10^3/uL (0.0-0.2); BASO % 1 % (0-3); EOS % 3 % (0-3); HEMATOCRIT 39.1 % (36.0-47.0); HEMOGLOBIN 12.3 g/dL (12.0-15.5); LYMPH # 1.6 x10^3/uL (1.0-4.8); LYMPH % 21 % (24-48); MEAN CORPUSCULAR HEMOGLOBIN 28 pg (25-35); MEAN CORPUSCULAR HGB CONC 31 g/dL (31-37); MEAN CORPUSCULAR VOLUME 89 fL (79-100); MONO % 6 % (0-9); NEUT % 70 % (31-73); PLATELET COUNT 152 x10^3/uL (140-400); RED BLOOD COUNT 4.41 x10^6/uL (3.50-5.40); RED CELL DISTRIBUTION WIDTH 20.2 % (11.5-14.5); WHITE BLOOD COUNT 7.7 x10^3/uL (4.0-11.0)
[2017-05-07 05:29] LABS: CALCIUM 8.3 mg/dL (8.5-10.1); CREATININE 2.9 mg/dL (0.6-1.0); GFR 17.4; MAGNESIUM 1.8 mg/dL (1.8-2.4); POTASSIUM 4.3 mmol/L (3.5-5.1)
[2017-05-07] MEDS: METOCLOPRAMIDE 10 MG TABLET. PO SCH ×3 (06:06→16:30)
[2017-05-07] MEDS ORDERED: IV NORMAL SALINE 1000ML BAG 1,000 ML IV PRN ×2 (06:20)
[2017-05-07] MEDS ORDERED: DIALYSIS PATIENT. MC PRN (06:30)
[2017-05-07] MEDS: INSULIN ASPART 300 UNITS/3 ML INSULN.PEN SQ SCH ×6 (07:30→17:24)
[2017-05-07] MEDS: IPRATRPIUM/ALBUTEROL 0.5/2.5MG 3 ML NEBU. NEB SCH ×4 (08:18→19:09)
--- NOTE | 2017-05-07 08:53 | PDOC3 ---
[facility] 05/07/17 0853: IM DISCHARGE & PROGRESS NOTES Date of Admission Date of Admission Date of Admission: May 05, 2017 at 15:53 Date of Discharge Date of Discharge 05/07/17 Primary Diagnosis Primary Diagnosis 1. chest pain L anterior MS in origin 2. L ear pain TM clear, due to allergies 3. A/C systolic CHF EF 25% per CC 4. chronic chest wall pain costochondritis 5. ESRD requiring hemodialysis 6. DVT RLE 12/11/16 on Eliquis with h/o PE, DVT RLE & IVC filte 7. DM II with neuropathy, PVD, chronic insulin use 8. anxiety/depression 9. HTN 10. hyperlipidemia 11. CAD with h/o OR and PCI with stent placed 12. GERD 13. chronic LBP 15. h/o hypercapnic/hypoxic respiratory failure with narcotics 13. 16. h/o CVA 17. COPD with remote h/o tobacco abuse 18. h/o urine retention 19. 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 morbid obesity 21. JENNA O2 3L NC at hs (CPAP in tolerant) 22. severe chronic PCL malnutrition 23. anemia CD renal 24. abnormal UA Consults Consults Guero Landry MD Procedures Procedures None Labs Labs Laboratory Tests Test 05/05/17 13:44 05/05/17 20:38 05/06/17 06:35 05/06/17 07:45 White Blood Count 8.0 x10^3/uL (4.0-11.0) 7.4 x10^3/uL (4.0-11.0) Red Blood Count 4.74 x10^6/uL (3.50-5.40) 4.33 x10^6/uL (3.50-5.40) Hemoglobin 13.4 g/dL (12.0-15.5) 12.1 g/dL (12.0-15.5) Hematocrit 41.0 % (36.0-47.0) 38.1 % (36.0-47.0) Mean Corpuscular Volume 87 fL (79-100) 88 fL (79-100) Mean Corpuscular Hemoglobin 28 pg (25-35) 28 pg (25-35) Mean Corpuscular Hemoglobin Concent 33 g/dL (31-37) 32 g/dL (31-37) Red Cell Distribution Width 20.5 % (11.5-14.5) 20.5 % (11.5-14.5) Platelet Count 178 x10^3/uL (140-400) 153 x10^3/uL (140-400) Neutrophils (%) (Auto) 78 % (31-73) 69 % (31-73) Lymphocytes (%) (Auto) 15 % (24-48) 20 % (24-48) Monocytes (%) (Auto) 4 % (0-9) 7 % (0-9) Eosinophils (%) (Auto) 2 % (0-3) 3 % (0-3) Basophils (%) (Auto) 1 % (0-3) 1 % (0-3) Neutrophils # (Auto) 6.3 x10^3uL (1.8-7.7) 5.1 x10^3uL (1.8-7.7) Lymphocytes # (Auto) 1.2 x10^3/uL (1.0-4.8) 1.5 x10^3/uL (1.0-4.8) Monocytes # (Auto) 0.3 x10^3/uL (0.0-1.1) 0.5 x10^3/uL (0.0-1.1) Eosinophils # (Auto) 0.1 x10^3/uL (0.0-0.7) 0.2 x10^3/uL (0.0-0.7) Basophils # (Auto) 0.1 x10^3/uL (0.0-0.2) 0.1 x10^3/uL (0.0-0.2) Platelet Estimate Adequate (ADEQUATE) Anisocytosis Mod Sodium Level 142 mmol/L (136-145) 139 mmol/L (136-145) Potassium Level 4.5 mmol/L (3.5-5.1) 3.6 mmol/L (3.5-5.1) Chloride Level 104 mmol/L (98-107) 101 mmol/L (98-107) Carbon Dioxide Level 27 mmol/L (21-32) 28 mmol/L (21-32) Anion Gap 11 (6-14) 10 (6-14) Blood Urea Nitrogen 15 mg/dL (7-20) 10 mg/dL (7-20) Creatinine 2.1 mg/dL (0.6-1.0) 2.0 mg/dL (0.6-1.0) Estimated GFR (Cockcroft-Gault) 25.2 26.7 Glucose Level 361 mg/dL (70-99) 206 mg/dL (70-99) Calcium Level 8.3 mg/dL (8.5-10.1) 8.6 mg/dL (8.5-10.1) Troponin I Quantitative 0.027 ng/mL (0.000-0.055) Glucose (Fingerstick) 130 mg/dL (70-99) 197 mg/dL (70-99) BUN/Creatinine Ratio 5 (6-20) Magnesium Level 1.7 mg/dL (1.8-2.4) Total Bilirubin 0.3 mg/dL (0.2-1.0) Aspartate Amino Transf (AST/SGOT) 16 U/L (15-37) Alanine Aminotransferase (ALT/SGPT) 16 U/L (14-59) Alkaline Phosphatase 121 U/L (46-116) Total Protein 6.7 g/dL (6.4-8.2) Albumin 2.7 g/dL (3.4-5.0) Albumin/Globulin Ratio 0.7 (1.0-1.7) Test 05/06/17 09:34 05/06/17 11:45 05/06/17 16:43 05/06/17 20:36 Nasal Screen MRSA (PCR) Negative (Negative) Glucose (Fingerstick) 210 mg/dL (70-99) 124 mg/dL (70-99) 79 mg/dL (70-99) Test 05/06/17 21:40 05/07/17 04:30 Urine Collection Type Unknown Urine Color Nargis Urine Clarity Clear Urine pH 5.5 Urine Specific [place] >=1.030 Urine Protein >=300 mg/dL (NEG-TRACE) Urine Glucose (UA) 250 mg/dL (NEG) Urine Ketones (Stick) Trace mg/dL (NEG) Urine Blood Moderate (NEG) Urine Nitrite Negative (NEG) Urine Bilirubin Small (NEG) Urine Urobilinogen Dipstick 1.0 mg/dL (0.2 mg/dL) Urine Leukocyte Esterase Small (NEG) Urine RBC 6-10 /HPF (0-2) Urine WBC 11-20 /HPF (0-4) Urine Squamous Epithelial Cells Mod /LPF Urine Bacteria Few /HPF (0-FEW) Urine Mucus Mod /LPF Urine Yeast Present /HPF White Blood Count 7.7 x10^3/uL (4.0-11.0) Red Blood Count 4.41 x10^6/uL (3.50-5.40) Hemoglobin 12.3 g/dL (12.0-15.5) Hematocrit 39.1 % (36.0-47.0) Mean Corpuscular Volume 89 fL (79-100) Mean Corpuscular Hemoglobin 28 pg (25-35) Mean Corpuscular Hemoglobin Concent 31 g/dL (31-37) Red Cell Distribution Width 20.2 % (11.5-14.5) Platelet Count 152 x10^3/uL (140-400) Neutrophils (%) (Auto) 70 % (31-73) Lymphocytes (%) (Auto) 21 % (24-48) Monocytes (%) (Auto) 6 % (0-9) Eosinophils (%) (Auto) 3 % (0-3) Basophils (%) (Auto) 1 % (0-3) Neutrophils # (Auto) 5.4 x10^3uL (1.8-7.7) Lymphocytes # (Auto) 1.6 x10^3/uL (1.0-4.8) Monocytes # (Auto) 0.4 x10^3/uL (0.0-1.1) Eosinophils # (Auto) 0.2 x10^3/uL (0.0-0.7) Basophils # (Auto) 0.1 x10^3/uL (0.0-0.2) Sodium Level 139 mmol/L (136-145) Potassium Level 4.3 mmol/L (3.5-5.1) Chloride Level 104 mmol/L (98-107) Carbon Dioxide Level 30 mmol/L (21-32) Anion Gap 5 (6-14) Blood Urea Nitrogen 19 mg/dL (7-20) Creatinine 2.9 mg/dL (0.6-1.0) Estimated GFR (Cockcroft-Gault) 17.4 Glucose Level 124 mg/dL (70-99) Calcium Level 8.3 mg/dL (8.5-10.1) Magnesium Level 1.8 mg/dL (1.8-2.4) Medications Medications Medications reviewed and reconciled for discharge. Brief hospital course Brief hospital course This 46 year old female who presented with chest pain was admitted. The following is a summary of her treatment: PLAN: L sided chest pain-chest wall tenderness now subsided NTG subling relieved chest pain/burning post upper back pain cardiology consult L ear pain TMs checked 05/[address] Johnson and both clear, no OM ESRD nephrology consulted HD missed 05/05 Admit K 4.5 05/07 4.3 04/30 new placement dialysis catheter, pt reports chills despite using electric blanket, will obtain BC x 2 DM II NPO -Levemir 30 units this am (1/2 dose), Hold Novolog 45u and ssi FSBS/SSI Glucose 124-210 Novolog 45units at dinner, Levemir held HTN BP 90s systolic through night, MAP 69-74 DVT/GI prophylaxis eliquis PPI abnormal UA void specimen asymptomatic f/u culture out patient For more details regarding the past history, family history, social history, surgical history and other details, please refer to History and Physical. Subjective chest pain resolved Objective alert, in dialysis Vitals Vital Signs Date Time Temp Pulse Resp B/P (MAP) Pulse Ox O2 Delivery O2 Flow Rate FiO2 05/07/17 08:18 94 Nasal Cannula 3.0 05/07/17 03:00 97.7 101 18 99/65 (76) 97.7 Physical Exam General appearance - alert,well appearing, and in no distress Mental Status - alert, oriented to person, place, and time, affect appropriate to mood Head - normal Chest - clear to auscultation, no wheezes, rales or rhonchi, L sided chest wall tenderness anteriorly has resolved Heart - S1 and S2 normal Abdomen - soft, nontender, nondistended, BS + Neurological - no acute focal neurological deficits noted Musculoskeletal - no muscular tenderness noted Extremities - ++ with venous stasis changes, sloughing skin anterior lower legs , 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 Allergy Allergies Coded Allergies Type Severity Reaction Last Updated Verified Penicillins Allergy Severe causes swelling of throat 01/15/17 Yes Sulfa (Sulfonamide Antibiotics) Allergy Severe causes throat to swell 01/15/17 Yes amoxicillin Allergy Severe causes swelling of throat 01/15/17 Yes clarithromycin Allergy Severe causes throat to swell 01/15/17 Yes codeine Allergy Severe "closed up my throat and itching" 01/31/17 Yes hydrocodone Allergy Severe "closes up my throat and itching" 01/31/17 Yes silver sulfadiazine Allergy Severe Rash 01/15/17 Yes oxycodone Allergy Intermediate 01/15/17 Yes tramadol Allergy Intermediate Nausea and Vomiting 01/15/17 Yes I S O L A T I O N *CONTACT* Allergy Unknown 01/15/[address] Johnson or Jony Rinaldi next week Disposition: Home health services Comments Discharge Management - 35 minutes. For other details please refer to discharge instructions CHELE JOHNSON MD 05/07/17 0940: IM DISCHARGE & PROGRESS NOTES Brief hospital course Comments The patient was seen and examined by me. Chart reviewed and plan of care formulated. Discussed with, reviewed and agree with MANAGER SALT's notes, plan of care and orders with modifications as necessary. Discharge Management - 35 minutes. YVONNE LAYNE APRN May 07, 2017 08:53 CHELE JOHNSON MD May 07, 2017 09:40
--- NOTE | 2017-05-07 08:55 | DISCH ---
DISCHARGE WITH HOME HEALTH DISCHARGE INFORMATION: Discharge Date: May 07, 2017 Final Diagnosis: Problems Medical Problems: (1) Cough Status: Acute Condition on Discharge: Stable HOME HEALTH: Face to Face: I certify this patient is under my care and that my ACID TESTER working with me, had a face to face encounter that meets the physician face to face encounter requirements with this patient on 05/07/17. Medical Condition(s): CHF Intermediate For: Assess/Skilled Observatio Patient meets Homebound Statu: Limited distance walking FOLLOW-UP: Follow up with: Dr. Johnson or Jony on Wednesday Follow Up With: continue hemodialysis MWF CERTIFICATION STATEMENT: Certification Statement: Certification Statement: Based on the above finding, I certify that this patient is confined to the home and needs intermittent snf care, physical therapy and/or speech therapy, or continues to need occupational therapy.~ This patient is under my care, and I have initiated the establishment of the plan of care.~ This patient will be followed by myself or a community physician who will periodically review the plan of care. YVONNE LAYNE APRN May 07, 2017 08:55
--- NOTE | 2017-05-07 08:57 | DISCH ---
DISCHARGE DISCHARGE DATE: May 07, 2017 FINAL DIAGNOSIS Problems Medical Problems: (1) Cough Status: Acute CONDITION ON DISCHARGE: Stable HOME HEALTH: Yes PT. HAS FUNCTIONAL LIMITATIONS: Yes FACE TO FACE ENCOUNTER: Yes POST DISCHARGE ORDERS ACTIVITY ORDERS: Activity as tolerated WEIGHT BEARING STATUS: As tolerated BATHING ORDERS: Shower-keep dressing dry DIET AFTER DISCHARGE: Cardiac CHECKS AFTER DISCHARGE CHECKS AFTER DISCHARGE: Check blood sugar, ac/hs, Weigh Yourself Daily FOLLOW-UP PHYSICIAN FOLLOW-UP: Dr. Johnson or Joyn on Wednesday ADDITIONAL FOLLOW-UP: continue hemodialysis MWF TREATMENT/EQUIPMENT ORDERS RESPIRATORY EQUIPMENT NEEDED: Oxygen (2L NC at hs and prn ) YVONNE LAYNE APRN May 07, 2017 08:57
[2017-05-07] MEDS: MUPIROCIN 2 % NASAL OINTMENT 22GM TUBE. NS SCH (09:00)
--- NOTE | 2017-05-07 09:47 | PDOC ---
Renal-Progress Notes Subjective Notes Notes STABLE, NO COMPLAINTS History of Present Illness Hx of present illness STABLE Vitals Vitals Vital Signs Date Time Temp Pulse Resp B/P (MAP) Pulse Ox O2 Delivery O2 Flow Rate FiO2 05/07/17 08:18 94 Nasal Cannula 3.0 05/07/17 03:00 97.7 101 18 99/65 (76) 97.7 Weight Weight [ ] I.O. Intake and Output Intake and Output 05/07/17 07:00 Intake Total 1880 ml Output Total 350 ml Balance 1530 ml Intake Oral 1880 ml Output Urine Total 350 ml # Voids 2 Labs Labs Laboratory Tests Test 05/06/17 11:45 05/06/17 16:43 05/06/17 20:36 05/06/17 21:40 Glucose (Fingerstick) 210 mg/dL (70-99) 124 mg/dL (70-99) 79 mg/dL (70-99) Urine Collection Type Unknown Urine Color Nargis Urine Clarity Clear Urine pH 5.5 Urine Specific [place] >=1.030 Urine Protein >=300 mg/dL (NEG-TRACE) Urine Glucose (UA) 250 mg/dL (NEG) Urine Ketones (Stick) Trace mg/dL (NEG) Urine Blood Moderate (NEG) Urine Nitrite Negative (NEG) Urine Bilirubin Small (NEG) Urine Urobilinogen Dipstick 1.0 mg/dL (0.2 mg/dL) Urine Leukocyte Esterase Small (NEG) Urine RBC 6-10 /HPF (0-2) Urine WBC 11-20 /HPF (0-4) Urine Squamous Epithelial Cells Mod /LPF Urine Bacteria Few /HPF (0-FEW) Urine Mucus Mod /LPF Urine Yeast Present /HPF Test 05/07/17 04:30 White Blood Count 7.7 x10^3/uL (4.0-11.0) Red Blood Count 4.41 x10^6/uL (3.50-5.40) Hemoglobin 12.3 g/dL (12.0-15.5) Hematocrit 39.1 % (36.0-47.0) Mean Corpuscular Volume 89 fL (79-100) Mean Corpuscular Hemoglobin 28 pg (25-35) Mean Corpuscular Hemoglobin Concent 31 g/dL (31-37) Red Cell Distribution Width 20.2 % (11.5-14.5) Platelet Count 152 x10^3/uL (140-400) Neutrophils (%) (Auto) 70 % (31-73) Lymphocytes (%) (Auto) 21 % (24-48) Monocytes (%) (Auto) 6 % (0-9) Eosinophils (%) (Auto) 3 % (0-3) Basophils (%) (Auto) 1 % (0-3) Neutrophils # (Auto) 5.4 x10^3uL (1.8-7.7) Lymphocytes # (Auto) 1.6 x10^3/uL (1.0-4.8) Monocytes # (Auto) 0.4 x10^3/uL (0.0-1.1) Eosinophils # (Auto) 0.2 x10^3/uL (0.0-0.7) Basophils # (Auto) 0.1 x10^3/uL (0.0-0.2) Sodium Level 139 mmol/L (136-145) Potassium Level 4.3 mmol/L (3.5-5.1) Chloride Level 104 mmol/L (98-107) Carbon Dioxide Level 30 mmol/L (21-32) Anion Gap 5 (6-14) Blood Urea Nitrogen 19 mg/dL (7-20) Creatinine 2.9 mg/dL (0.6-1.0) Estimated GFR (Cockcroft-Gault) 17.4 Glucose Level 124 mg/dL (70-99) Calcium Level 8.3 mg/dL (8.5-10.1) Magnesium Level 1.8 mg/dL (1.8-2.4) Review of Systems Constitutional: yes: alert, oriented Pulmonary: Yes no symptom reported Gastrointestional: Yes: no symptom reported Genitourinary: Yes: no symptom reported Musculoskeletal: Yes: no symptom reported Skin: Yes no symptom reported Endocrine: Yes: no symptom reported Physical Exam General Appearance: no apparent distress Skin: warm Respiratory: bilateral CTA Heart: S1S2, RRR Abdomen: soft, bowel sounds present Genitourinary: bladder flat Extremities: pulses present Neurology: alert Musculoskeletal: low back pain, Osteoarthritis Assessment Assessment IMP HTN DM II CHEST PAIN ANEMIA ESRD PLAN HD TODAY UF TO DW HOME TODAY PT TO F/U WITH VASCULAR SURGERY FOR AV ACCESS OP SARA RUIZ MD May 07, 2017 09:47
[2017-05-07] MEDS: AMMONIUM LACTATE 12% TOPICAL LOTION 226GM BOTTLE. TP SCH (10:15)
[2017-05-07] MEDS: ASCORBIC ACID 500 MG TABLET PO SCH (10:15)
[2017-05-07] MEDS: CARVEDILOL 3.125 MG TABLET. PO SCH ×2 (10:16→17:00)
[2017-05-07] MEDS: MAGNESIUM OXIDE 400 MG TABLET PO SCH ×2 (10:16→14:53)
[2017-05-07] MEDS: ASPIRIN ENTERIC COATED 81 MG TABLET.DR. PO SCH (10:16)
[2017-05-07] MEDS: APIXABAN 5 MG TABLET. PO SCH (10:16)
[2017-05-07] MEDS: INSULIN DETEMIR 300 UNITS/3 ML INSULN.PEN. SQ SCH (10:24)
[2017-05-07 10:30] VITALS: BP 100/57
--- NOTE | 2017-05-07 12:27 | ACF ---
Admit Criteria Forms Admit Criteria Forms Admit Criteria Forms CHEST PAIN Clinical Indications for Admission to Inpatient Care (Place 'X' for any and all applicable criteria): Admission is indicated for chest pain and ANY ONE of the following(1)(2)(3)(4)(5 ): [ ]I. Angina with acute coronary syndrome (Also use Myocardial Infarction or Angina guideline) [ ]II. Hemodynamic instability [X ]III. Angina needing acute intervention as indicated by ALL of the following (11)(12): [ X]a) Unstable angina is present as indicated by angina that is ANY ONE of the following: [ X]i) New onset [ ]ii) Nocturnal [ ]iii) Prolonged at rest [ ]iv) Progressive [X ]b) Angina warrants acute intervention as indicated by ANY ONE of the following: [ ]i) Recurrent angina (e.g, not responding as previously to treatment) [ ]ii) Angina at rest or with low-level activities despite initial medical therapy [ ]iii) New or presumably new ST-segment depression on ECG [ ]iv) Signs or symptoms of heart failure (eg, dyspnea, pulmonary edema) [ ]v) New or worsening mitral regurgitation [ ]vi) Hemodynamic instability [ ]vii) Dangerous arrhythmia (eg, sustained ventricular tachycardia) [ ]viii) History of percutaneous coronary intervention within 6 months [ ]ix) History of coronary artery bypass graft surgery [ ]x) MAMIE risk score of 2 or greater[A] [X ]xi) History of Diabetes(14) [ ]xii) High-risk cardiac ischemia findings on noninvasive testing (e.g, echocardiogram, treadmill testing, nuclear scan) [ ]xiii) Chronic renal insufficiency (ie, estimated GFR less than 60 mL/min/1.732m) [ ]xiv) Left ventricular ejection fraction less than 40% [ ]IV. Evidence of FL (eg, cardiac biomarkers positive, ST-segment elevation on ECG) also use Myocardial Infarction Criteria Form. [ ]V. Pulmonary edema [ ]. Respiratory distress [ ]VII. Chest pain indicative of serious diagnosis other than coronary artery disease (eg, aortic dissection) [ ]VIII. Contraindications and/or Inappropriate clinical situations for Observational Care in patients with Chest Pain, when ANY ONE of the following is required: [ ]a) Patient with risk factor for pulmonary embolism, acute coronary syndrome and myocardial infarction (18) [ ]b) Patient with Pulmonary embolism require an average LOS of 4.3 days, therefore emergency department observation management is inappropriate 18,23 [ ]c) Painful condition/s in the elderly, have the highest rate of recidivism after emergency department observation management (10.8%) 20,21,22 [ ]d) Elevated cardiac biomarker requires intensive and exhaustive care (19) [ ]IX. General contraindications and/or Inappropriate clinical situations for Observational Care in patients with Chest Pain, when ANY ONE of the following is required: [ ]a) Prediction of prolongation of LOS based on ANY ONE of the following may be considered as a contraindication for observational care 2, 3, 4, 5, 6, 7, 8, 9, 10, 11 [ ]i) Age > 65 yrs. [ ]ii) Patient arriving by ambulance [ ]iii) Patient with high acuity [ ]iv) Patient requiring vital sign monitoring [ ]v) Patient on IV medication [ ]b) Systolic blood pressures 180mmHg 3,12 [ ]c) Patient with altered mental status including delirium and other alteration of consciousness, (3) [ ]d) Patient whose discharge disposition will be to a prison home or rehabilitation home should not be managed in Emergency Department Observation Unit. CMS rule requires 3 days hospital stay before such placement. 3,13 [ ]e) Patient with failure to thrive due to broad array of etiologies 3,16,17 [ ]f) Inability to ambulate 3,14 Extended stay beyond goal length of stay may be needed for (1)(28): [ ]a) Specific condition diagnosed after evaluation (eg, pulmonary embolism, aortic dissection) [ ]b) Unstable angina [ ]c) Continued suspicion of acute coronary syndrome with inability to complete needed cardiac evaluation (eg, patient clinically unable to undergo stress testing) [ ]d) Myocardial infarction (Contents from ANGINA and CHEST PAIN clinical indications for admission to inpatient care have been integrated in this form) The original [employer] content created by [employer] has been revised. The portions of the content which have been revised are identified through the use of italic text or in bold, and [facility] has neither reviewed nor approved the modified material. All other unmodified content is copyright [facility]. Please see references footnoted in the original [facility] edition 2016 GREG STILES May 07, 2017 12:27
--- NOTE | 2017-05-07 12:37 | EKG ---
[facility] [address] [place] [address] Test Date: 2017-05-07 Test Time: 12:27:02 Pat Name: ADRIEL GOOD Department: Room: [facility] Gender: F Technical Asst: : 1970 Requested By: TAN KILLIAN Order Number: [id number] Reading MD: Bebeto Montoya Measurements Intervals [place] Rate: 122 P: MA: QRS: -126 QRSD: 102 T: 36 QT: 340 QTc: 486 Interpretive Statements SUSPECT SINUS TACHYCARDIA CANNOT RULE OUT ATRIAL FLUTTER Electronically Signed On 05-07-2017 13:44:53 CDT by Bebeto Montoya
[2017-05-07 12:43] VITALS: BP 94/70
[2017-05-07] MEDS ORDERED: IV NORMAL SALINE 500ML BAG 500 ML IV ONE (12:45)
[2017-05-07] MEDS ORDERED: METOPROLOL TARTRATE 5 MG/5 ML VIAL. IVP ONE (12:45)
[2017-05-07] MEDS ORDERED: DIGOXIN IV 500 MCG/2 ML AMPUL. IV ONE (12:45)
--- NOTE | 2017-05-07 13:54 | PDOC ---
CARDIO Progress Notes Date and Time Date of Service 05/07/2017 Time of Evaluation 1340 Subjective Subjective: No Chest Pain, No shortness of breath, No Palpitations, No Dizziness, Other (feels good today) Vitals Vitals Vital Signs Date Time Temp Pulse Resp B/P (MAP) Pulse Ox O2 Delivery O2 Flow Rate FiO2 05/07/17 13:00 119 94/70 05/07/17 11:47 94 Nasal Cannula 3.0 05/07/17 10:30 98.1 20 98.1 Weight Weight [ ] Input and Output Intake and Output Intake and Output 05/07/17 07:00 Intake Total 1880 ml Output Total 350 ml Balance 1530 ml Intake Oral 1880 ml Output Urine Total 350 ml # Voids 2 Laboratory Labs Laboratory Tests Test 05/06/17 16:43 05/06/17 20:36 05/06/17 21:40 05/07/17 04:30 Glucose (Fingerstick) 124 mg/dL (70-99) 79 mg/dL (70-99) Urine Collection Type Unknown Urine Color Nargis Urine Clarity Clear Urine pH 5.5 Urine Specific [place] >=1.030 Urine Protein >=300 mg/dL (NEG-TRACE) Urine Glucose (UA) 250 mg/dL (NEG) Urine Ketones (Stick) Trace mg/dL (NEG) Urine Blood Moderate (NEG) Urine Nitrite Negative (NEG) Urine Bilirubin Small (NEG) Urine Urobilinogen Dipstick 1.0 mg/dL (0.2 mg/dL) Urine Leukocyte Esterase Small (NEG) Urine RBC 6-10 /HPF (0-2) Urine WBC 11-20 /HPF (0-4) Urine Squamous Epithelial Cells Mod /LPF Urine Bacteria Few /HPF (0-FEW) Urine Mucus Mod /LPF Urine Yeast Present /HPF White Blood Count 7.7 x10^3/uL (4.0-11.0) Red Blood Count 4.41 x10^6/uL (3.50-5.40) Hemoglobin 12.3 g/dL (12.0-15.5) Hematocrit 39.1 % (36.0-47.0) Mean Corpuscular Volume 89 fL (79-100) Mean Corpuscular Hemoglobin 28 pg (25-35) Mean Corpuscular Hemoglobin Concent 31 g/dL (31-37) Red Cell Distribution Width 20.2 % (11.5-14.5) Platelet Count 152 x10^3/uL (140-400) Neutrophils (%) (Auto) 70 % (31-73) Lymphocytes (%) (Auto) 21 % (24-48) Monocytes (%) (Auto) 6 % (0-9) Eosinophils (%) (Auto) 3 % (0-3) Basophils (%) (Auto) 1 % (0-3) Neutrophils # (Auto) 5.4 x10^3uL (1.8-7.7) Lymphocytes # (Auto) 1.6 x10^3/uL (1.0-4.8) Monocytes # (Auto) 0.4 x10^3/uL (0.0-1.1) Eosinophils # (Auto) 0.2 x10^3/uL (0.0-0.7) Basophils # (Auto) 0.1 x10^3/uL (0.0-0.2) Sodium Level 139 mmol/L (136-145) Potassium Level 4.3 mmol/L (3.5-5.1) Chloride Level 104 mmol/L (98-107) Carbon Dioxide Level 30 mmol/L (21-32) Anion Gap 5 (6-14) Blood Urea Nitrogen 19 mg/dL (7-20) Creatinine 2.9 mg/dL (0.6-1.0) Estimated GFR (Cockcroft-Gault) 17.4 Glucose Level 124 mg/dL (70-99) Calcium Level 8.3 mg/dL (8.5-10.1) Magnesium Level 1.8 mg/dL (1.8-2.4) Test 05/07/17 10:10 05/07/17 12:00 Glucose (Fingerstick) 139 mg/dL (70-99) 150 mg/dL (70-99) Microbiology Micro Microbiology 05/06/17 Blood Culture - Preliminary, Resulted NO GROWTH AFTER 1 DAY Review of Systems Constitutional: yes: alert, oriented Pulmonary: Yes no symptom reported Gastrointestional: Yes: no symptom reported Genitourinary: Yes: no symptom reported Musculoskeletal: Yes: no symptom reported Skin: Yes no symptom reported Endocrine: Yes: no symptom reported Physical Exam HEENT: Neck Supple W Full Motion Chest: Symmetric LUNGS: Clear to Auscultation Heart: S1S2, RRR (HR 120s) Abdomen: Soft N/T Extremities: No Calf Tenderness, Other (1+ pitting bilateral LE edema) Neurology: alert, oriented, follow commands Assessment Assessment 1. Asymptomatic Tachyarrhythmias: HR 120-130s occurring post HD. Per pt 2 KG off. Unable to ascertain if Sinus tach vs 2:1 atrial flutter due to known long TAYLOR. 2. Atypical CP: likely from GERD exacerbation 3. CAD: Recent 02/2017 C unremarkable with patent stent to LAD 4. ICM: has declined repeatedly for AICD. NYHA2-3 5 Chronic systolic CHF: compensated 6. HTN: BP low post HD 7. ESRD with HD Recommendations 1. I was called today due to #1. Dig IV x1. Possibly triggered by lyte and fluid off loading. 250 ml NS bolus. Will use BB IV if BP allows. 2. Continue secondary prevention 3. BMP and Mg and replace K and Mg if low. 4. Possible DC this evening. Follow up with global manager TAN KILLIAN APRN May 07, 2017 13:54
[2017-05-07 14:13] VITALS: BP 103/66
[2017-05-07 14:19] LABS: CALCIUM 8.2 mg/dL (8.5-10.1); CREATININE 2.2 mg/dL (0.6-1.0); GFR 23.9; MAGNESIUM 1.8 mg/dL (1.8-2.4)
[2017-05-07] MEDS ORDERED: MAGNESIUM SULFATE 1GM 100 ML IV ONE (15:00)
[2017-05-07 17:00] VITALS: BP 95/65
[2017-05-08] MEDS ORDERED: fentaNYL 50MCG/HR PATCH 1 PATCH PATCH.TD72 TD SCH (09:00)
== END 2017-05-07 19:00 | disposition home health service (06) | DRG 291 ==
LOC: ER 13:26 → 5 NORTH 15:53 → OBSVTOIN 05-07 09:39
PROVIDERS: ADMIT Internal Medicine; ATTEND Internal Medicine
DX: I13.2 Hypertensive heart and chronic kidney disease with heart failure and with stage 5 chronic kidney disease, or end stage renal disease (principal); N18.6 End stage renal disease; J96.91 Respiratory failure, unspecified with hypoxia; J96.92 Respiratory failure, unspecified with hypercapnia; I50.23 Acute on chronic systolic (congestive) heart failure; E43 Unspecified severe protein-calorie malnutrition; N25.81 Secondary hyperparathyroidism of renal origin; Z68.41 Body mass index [BMI] 40.0-44.9, adult; I42.9 Cardiomyopathy, unspecified; D64.9 Anemia, unspecified; E11.22 Type 2 diabetes mellitus with diabetic chronic kidney disease; E78.00 Pure hypercholesterolemia, unspecified; G47.33 Obstructive sleep apnea (adult) (pediatric); I07.1 Rheumatic tricuspid insufficiency; I25.10 Atherosclerotic heart disease of native coronary artery without angina pectoris; E11.51 Type 2 diabetes mellitus with diabetic peripheral angiopathy without gangrene; M94.0 Chondrocostal junction syndrome [Tietze]; E11.42 Type 2 diabetes mellitus with diabetic polyneuropathy; I87.8 Other specified disorders of veins; G89.29 Other chronic pain; M19.90 Unspecified osteoarthritis, unspecified site; M10.9 Gout, unspecified; J44.9 Chronic obstructive pulmonary disease, unspecified; K21.9 Gastro-esophageal reflux disease without esophagitis; K76.0 Fatty (change of) liver, not elsewhere classified; Z79.01 Long term (current) use of anticoagulants; Z82.49 Family history of ischemic heart disease and other diseases of the circulatory system; Z83.3 Family history of diabetes mellitus; Z86.711 Personal history of pulmonary embolism; Z86.718 Personal history of other venous thrombosis and embolism; Z86.73 Personal history of transient ischemic attack (TIA), and cerebral infarction without residual deficits; Z95.5 Presence of coronary angioplasty implant and graft; Z99.2 Dependence on renal dialysis; Z90.49 Acquired absence of other specified parts of digestive tract; I25.2 Old myocardial infarction; Z88.0 Allergy status to penicillin; Z88.2 Allergy status to sulfonamides; Z88.1 Allergy status to other antibiotic agents; Z88.5 Allergy status to narcotic agent; Z88.8 Allergy status to other drugs, medicaments and biological substances; Z87.891 Personal history of nicotine dependence; Z79.4 Long term (current) use of insulin; Z79.899 Other long term (current) drug therapy
CPT/HCPCS: 36415; 71010; 80048; 80053; 81001; 82962; 83735; 84484; 85007; 85027; 87040; 87641; 93005; 94250; 94640; 94760; G0378; G0379; J1160; J1815; J2270; J3475; J7040; J7620; J8597; Q0162

== ENCOUNTER 2017-05-21 09:01 | Observation (INO) | payer MEDICARE, MEDICAID ==
--- NOTE | 2017-05-21 09:16 | EKG ---
[facility] [address] [place] [address] Test Date: 2017-05-21 Test Time: 09:06:24 Pat Name: ADRIEL GOOD Department: Room: Gender: F Launch Steward: : 1970 Requested By: TAMMY NEWTON Order Number: [id number] Reading MD: Measurements Intervals [place] Rate: 113 P: -163 MA: 184 QRS: -92 QRSD: 140 T: 24 QT: 340 QTc: 466 Interpretive Statements SUPRAVENTRICULAR RHYTHM ABNORMAL RIGHT SUPERIOR AXIS DEVIATION NON SPECIFIC INTRAVENTRICULAR BLOCK RVH WITH REPOLARIZATION ABNORMALITY QRS(T) CONTOUR ABNORMALITY CONSISTENT WITH ANTERIOR INFARCT AGE UNDETERMINED CONSISTENT WITH INFERIOR INFARCT AGE UNDETERMINED ABNORMAL ECG RI6.01 No previous ECG available for comparison
[2017-05-21 09:38] LABS: CALCIUM 8.7 mg/dL (8.5-10.1); CREATININE 2.6 mg/dL (0.6-1.0); GFR 19.7; POTASSIUM 3.7 mmol/L (3.5-5.1)
[2017-05-21 09:41] LABS: BASO # 0.1 x10^3/uL (0.0-0.2); BASO % 1 % (0-3); EOS % 2 % (0-3); HEMATOCRIT 42.5 % (36.0-47.0); HEMOGLOBIN 13.9 g/dL (12.0-15.5); LYMPH # 1.5 x10^3/uL (1.0-4.8); LYMPH % 13 % (24-48); MEAN CORPUSCULAR HEMOGLOBIN 28 pg (25-35); MEAN CORPUSCULAR HGB CONC 33 g/dL (31-37); MEAN CORPUSCULAR VOLUME 87 fL (79-100); MONO % 5 % (0-9); NEUT % 79 % (31-73); PLATELET COUNT 195 x10^3/uL (140-400); RED BLOOD COUNT 4.88 x10^6/uL (3.50-5.40); RED CELL DISTRIBUTION WIDTH 20.1 % (11.5-14.5); WHITE BLOOD COUNT 11.5 x10^3/uL (4.0-11.0)
[2017-05-21 09:44] LABS: ALBUMIN 2.7 g/dL (3.4-5.0); DIRECT BILIRUBIN 0.1 mg/dL (0.0-0.2); TOTAL BILIRUBIN 0.4 mg/dL (0.2-1.0); TOTAL PROTEIN 7.3 g/dL (6.4-8.2)
[2017-05-21] MEDS ORDERED: IPRATRPIUM/ALBUTEROL 0.5/2.5MG 3 ML NEBU. NEB ONE (09:45)
[2017-05-21] MEDS ORDERED: ONDANSETRON PF 4 MG/2 ML VIAL. IV PRN ×2 (09:45→10:30)
[2017-05-21] MEDS ORDERED: MORPHINE SULFATE 2 MG/ML DISP.SYRIN. IV PRN (09:45)
[2017-05-21] MEDS ORDERED: NITROGLYCERIN SUBLINGUAL 0.4 MG BOTTLE OF 25. SL PRN ×2 (09:45→10:30)
--- NOTE | 2017-05-21 09:52 | PHYS DOC ---
Past Medical History Past Medical History: COPD, CVA, Diabetes-Type II, DVT, GERD, High Cholesterol , Hypertension, ID, Renal Disease, Other Additional Past Medical Histor: PE, CHRONIC BACK PAIN, ENLARGED LIVER Past Surgical History: Angioplasty, Cholecystectomy, , Other Additional Past Surgical Histo: CARDIAC STENT, VENA CAVA FILTER, HERNIA SURG, 4TH & 5TH RIGHT TOE AMP Alcohol Use: None Drug Use: None Adult General Chief Complaint Chief Complaint: CHEST PAIN HPI HPI 46-year-old female presenting to the emergency department today with chest pain. The pain is on the left it is a burning cramping sensation that is 10 out of 10. She also associated with nausea vomiting. She has a history of high and pulmonary embolism in the past. She currently reports taking ELIQUIS daily. She denies unilateral leg swelling or hemoptysis. Her pain started yesterday. It is intermittent nonradiating. Review of systems is negative for abdominal pain fevers chills cough. She denies vision changes numbness weakness or tingling. All other review of systems is negative unless otherwise noted in history of present illness. ED course: 46-year-old female presenting to the emergency department today with chest pain. Aspirin full Dose given prior to arrival. Triage vital signs afebrile with tachycardia and mildly low oxygen saturations. When I was in the room air oxygen saturation dropped into the mid 80s. It waxes and wanes when she speaks. EKG was obtained and reviewed by myself. It shows sinus rhythm with a tachycardic rate. There is a right bundle-branch block present. This EKG was compared to previous on May 072016. EKG is similar to previous. The patient 's right bundle-branch block is not new. Chest x-ray and blood work obtained. I ordered a VQ scan on the patient given her mildly low oxygen saturations and tachycardia to see if she was possibly clotting through her Eliquis. I discussed the case with LEWIS Lopez of our cardiology team who agreed to evaluate the patient and make recommendations. I placed a consult for our cardiology group and pulmonology group and subsequently obtained a bed at our hospital for further evaluation workup and care. I discussed the case with his primary care physician Dr. Singh who agreed with the course of plan. Review of Systems Review of Systems SEE ABOVE. Allergies Allergies Allergies Coded Allergies Type Severity Reaction Last Updated Verified Penicillins Allergy Severe causes swelling of throat 01/15/17 Yes Sulfa (Sulfonamide Antibiotics) Allergy Severe causes throat to swell 01/15/17 Yes amoxicillin Allergy Severe causes swelling of throat 01/15/17 Yes clarithromycin Allergy Severe causes throat to swell 01/15/17 Yes codeine Allergy Severe "closed up my throat and itching" 01/31/17 Yes hydrocodone Allergy Severe "closes up my throat and itching" 01/31/17 Yes silver sulfadiazine Allergy Severe Rash 01/15/17 Yes oxycodone Allergy Intermediate 01/15/17 Yes tramadol Allergy Intermediate Nausea and Vomiting 01/15/17 Yes I S O L A T I O N *CONTACT* Allergy Unknown 01/15/17 Yes Physical Exam Physical Exam SEE ABOVE Constitutional: Well developed, well nourished, no acute distress, non-toxic appearance. [] HENT: Normocephalic, atraumatic, bilateral external ears normal, oropharynx moist, no oral exudates, nose normal. [] Eyes: PERRLA, EOMI, conjunctiva normal, no discharge. [] Neck: Normal range of motion, no tenderness, supple, no stridor. [] Cardiovascular: Tachycardic rate with a regular rhythm. No murmur present. Lungs & Thorax: Mild wheezing in the right more than left. Abdomen: Bowel sounds normal, soft, no tenderness, no masses, no pulsatile masses. [] Skin: Warm, dry, no erythema, no rash. [] Back: No tenderness, no CVA tenderness. [] Extremities: No tenderness, no cyanosis, no clubbing, ROM intact, no edema. [] Neurologic: Alert and oriented X 3, normal motor function, normal sensory function, no focal deficits noted. [] Psychologic: Affect normal, judgement normal, mood normal. [] Current Patient Data Vital Signs Vital Signs Date Time Temp Pulse Resp B/P (MAP) Pulse Ox O2 Delivery O2 Flow Rate FiO2 05/21/17 09:01 98.1 111 22 126/65 (85) 93 Room Air 98.1 Lab Values Laboratory Tests Test 05/21/17 09:10 Sodium Level 140 mmol/L (136-145) Potassium Level 3.7 mmol/L (3.5-5.1) Chloride Level 102 mmol/L (98-107) Carbon Dioxide Level 29 mmol/L (21-32) Anion Gap 9 (6-14) Blood Urea Nitrogen 19 mg/dL (7-20) Creatinine 2.6 mg/dL (0.6-1.0) H Estimated GFR (Cockcroft-Gault) 19.7 Glucose Level 242 mg/dL (70-99) H Calcium Level 8.7 mg/dL (8.5-10.1) Total Bilirubin Pending Direct Bilirubin Pending Aspartate Amino Transferase (AST) Pending Alanine Aminotransferase (ALT) Pending Alkaline Phosphatase Pending Total Protein Pending Albumin Pending Lipase Pending Laboratory Tests 05/21/17 09:10 EKG EKG [] Radiology/Procedures Radiology/Procedures [] Course & Med Decision Making Course & Med Decision Making Pertinent Labs and Imaging studies reviewed. (See chart for details) [] Dragon Disclaimer Dragon Disclaimer This electronic medical record was generated, in whole or in part, using a voice recognition dictation system. Departure Departure Impression: Primary Impression: Chest pain Additional Impressions: DM (diabetes mellitus) History of blood clots History of heart attack Disposition: ADMITTED INPATIENT Admitting Physician: Chele Singh Condition: STABLE Referrals: CHELE SINGH MD (PCP) Problem Qualifiers TAMMY NEWTON MD May 21, 2017 09:52
--- NOTE | 2017-05-21 09:59 | PDOC2 ---
TAN KILLIAN SKIRT TRIMMER 05/21/17 0959: CARDIAC CONSULT DATE OF CONSULT Date of Consult DATE: 05/21/17 TIME: 09:48 REASON FOR CONSULT Reason for Consult: Chest pain REFERRING PHYSICIAN Referring Physician: Phi SOURCE Source: Chart review, Patient HISTORY OF PRESENT ILLNESS HISTORY OF PRESENT ILLNESS This is a pleasant 46 yo female admitted for complains of chest pain. I have seen this pt about 2 weeks ago and was complaining of reproducible chest pain at that time which is the same sensation she has reproducible with palpation and positional changes. This was on her left breast region and epigastric region as well It has been ruled that this could very well be GERD exacerbation at that time and was instructed to get started on PPI but has stopped taking citing that her pharmacy wont supply it and she was just give a few pills. She just had a recent LHC which was unremarkable and include patent LAD. Although her baseline mobility is limited with walker ambulation she does not have any associated symptoms of palpitations, radiating pain, SOA, CARRION, decreased in activity tolerance, nausea, or diaphoresis. Denies any falls and cites that she takes her medications regularly. PAST MEDICAL HISTORY Past Medical History Cardiovascular: CAD, CHF (cardiomyopathy), HTN, OR, Hyperlipidemia, Other (PVD) Pulmonary: COPD, Pulmonary embolus, Other (JENNA - untreated) CENTRAL NERVOUS SYSTEM: CVA, Peripheral neuropathy GI: GERD, morbid obesity Heme/Onc: Anemia NOS Hepatobiliary: No pertinent hx Psych: Anxiety, Depression Musculoskeletal: low back pain, Osteoarthritis, Other (DVT RLE) Infectious disease: Other (C-diff, pseudomonas) ENT: No pertinent hx Renal/: Chronic renal insuff (ESRD) - left tunneled HD cath, UTI Endocrine: Diabetes (2) Dermatology: Other (right foot ulcer with osteomyelitis) PAST SURGICAL HISTORY Past Surgical History Cholecystectomy, , Hernia Repair, Other (toe amputation; IVC filter, recent right foot I & D 12/2016), PCIstent in the past. Recent LHC with patent LAD stent 02/2017 FAMILY HISTORY Family History Diabetes, Heart Disease, Hypertension SOCIAL HISTORY Smoke: No ALCOHOL: none Drugs: None ALLERGIES ALLERGIES: Coded Allergies: Penicillins (Verified Allergy, Severe, causes swelling of throat, 01/15/17) Sulfa (Sulfonamide Antibiotics) (Verified Allergy, Severe, causes throat to swell, 01/15/17) amoxicillin (Verified Allergy, Severe, causes swelling of throat, 01/15/17) clarithromycin (Verified Allergy, Severe, causes throat to swell, 01/15/17) codeine (Verified Allergy, Severe, "closed up my throat and itching", 01/31) tolerates percocet, Dilaudid is home med hydrocodone (Verified Allergy, Severe, "closes up my throat and itching", 01/31/17) tolerates percocet, Dilaudid is home med silver sulfadiazine (Verified Allergy, Severe, Rash, 01/15/17) oxycodone (Verified Allergy, Intermediate, 01/15/17) tramadol (Verified Allergy, Intermediate, Nausea and Vomiting, 01/15/17) I S O L A T I O N *CONTACT* (Verified Allergy, Unknown, 01/15/17) mrsa ROS Review of System 14 point ROS evaluated with pertinent positives noted per HPI PHYSICAL EXAM General: Alert, Oriented X3, Cooperative, No acute distress HEENT: Atraumatic, Mucous membr. moist/pink Lungs: Clear to auscultation, Normal air movement Heart: Regular rate (Sinus tach), Normal S1, Normal S2, Other (2/6 systolic murmur to LLS border) Abdomen: Soft, No tenderness Extremities: No cyanosis, Other (2+ bilateral LE pitting edema) Skin: No breakdown, No significant lesion Neuro: Normal speech, Sensation intact Psych/Mental Status: Mental status NL, Mood NL MUSCULOSKELETAL: Osteoarthritic changes both hands VITALS VITALS Vital Signs Date Time Temp Pulse Resp B/P (MAP) Pulse Ox O2 Delivery O2 Flow Rate FiO2 05/21/17 09:01 98.1 111 22 126/65 (85) 93 Room Air 98.1 LABS Lab: Laboratory Tests Test 05/21/17 09:10 White Blood Count 11.5 x10^3/uL (4.0-11.0) Red Blood Count 4.88 x10^6/uL (3.50-5.40) Hemoglobin 13.9 g/dL (12.0-15.5) Hematocrit 42.5 % (36.0-47.0) Mean Corpuscular Volume 87 fL (79-100) Mean Corpuscular Hemoglobin 28 pg (25-35) Mean Corpuscular Hemoglobin Concent 33 g/dL (31-37) Red Cell Distribution Width 20.1 % (11.5-14.5) Platelet Count 195 x10^3/uL (140-400) Neutrophils (%) (Auto) 79 % (31-73) Lymphocytes (%) (Auto) 13 % (24-48) Monocytes (%) (Auto) 5 % (0-9) Eosinophils (%) (Auto) 2 % (0-3) Basophils (%) (Auto) 1 % (0-3) Neutrophils # (Auto) 9.1 x10^3uL (1.8-7.7) Lymphocytes # (Auto) 1.5 x10^3/uL (1.0-4.8) Monocytes # (Auto) 0.5 x10^3/uL (0.0-1.1) Eosinophils # (Auto) 0.2 x10^3/uL (0.0-0.7) Basophils # (Auto) 0.1 x10^3/uL (0.0-0.2) Sodium Level 140 mmol/L (136-145) Potassium Level 3.7 mmol/L (3.5-5.1) Chloride Level 102 mmol/L (98-107) Carbon Dioxide Level 29 mmol/L (21-32) Anion Gap 9 (6-14) Blood Urea Nitrogen 19 mg/dL (7-20) Creatinine 2.6 mg/dL (0.6-1.0) Estimated GFR (Cockcroft-Gault) 19.7 Glucose Level 242 mg/dL (70-99) Calcium Level 8.7 mg/dL (8.5-10.1) Total Bilirubin 0.4 mg/dL (0.2-1.0) Direct Bilirubin 0.1 mg/dL (0.0-0.2) Aspartate Amino Transf (AST/SGOT) 16 U/L (15-37) Alanine Aminotransferase (ALT/SGPT) 20 U/L (14-59) Alkaline Phosphatase 135 U/L (46-116) Troponin I Quantitative 0.023 ng/mL (0.000-0.055) Total Protein 7.3 g/dL (6.4-8.2) Albumin 2.7 g/dL (3.4-5.0) Lipase 96 U/L (73-393) ECHOCARDIOGRAM ECHOCARDIOGRAM <Conclusion> The Left Ventricle is mildly dilated. The systolic function is moderate to severely impaired. The Ejection Fraction is 30-35%. There is global hypokinesis of the left ventricle. There is no significant aortic valvular stenosis. Doppler and Color Flow revealed no significant aortic regurgitation. Doppler and Color-flow revealed mild mitral regurgitation. Doppler and Color Flow revealed trace tricuspid regurgitation. The PA pressure was estimated at 22 mmHg. DATE: 07/14/16 1749 HEART CATH HEART CATH CORONARY ANGIOGRAPHY: LM is a large caliber vessel with normal angiographic appearance. LAD is a large caliber vessel with a patent proximal stent. D1/D2 are small caliber vessels with normal angiographic appearance. LCx is a moderate caliber non-dominant vessel with normal angiographic appearance. OM1 is a moderate caliber vessel with normal angiographic appearance. RCA is a large caliber dominant vessel with normal angiographic appearance. RPDA and RPL are small caliber vessels with normal angiographic appearance. Conclusion 1. Severe LV dysfunction. EF 25%. 2. LVEDP 35 mm Hg 3. Patent LAD stent. Recommendations Aggressive Medical Therapy DATE: 02/18/17 1518 ASSESSMENT/PLAN ASSESSMENT/PLAN 1. Atypical CP: Noncardiac, reproducible as well. Likely from GERD exacerbation with MSK component. Failed to continue med 2. CAD: Recent 02/2017 LHC unremarkable with patent stent to LAD 3. ICM: has declined repeatedly for AICD. NYHA2-3 4 Chronic systolic CHF: Mild vascular congestion, appears compensated, notable for borderline low BP, not new 5. HTN: controlled 6. ESRD with HD 7. Asymptomatic sinus tachycardia: long TAYLOR, noted also from last admission, likely reactive 8. Hx of PE with current use of apixaban 9. Recent UTI? mild leukocytosis Recommendations 1. Continue with BB, will change coreg to metoprolol. 2. Secondary prevention as tolerated. 3. Resume PPI 4. Follow up with [facility] cardiology 5. Consider GI consult 6. Fluid off loading per HD. Problems: SHEREEN ORTIZ MD 05/21/17 1603: CARDIAC CONSULT ALLERGIES ALLERGIES: Coded Allergies: Penicillins (Verified Allergy, Severe, causes swelling of throat, 01/15/17) Sulfa (Sulfonamide Antibiotics) (Verified Allergy, Severe, causes throat to swell, 01/15/17) amoxicillin (Verified Allergy, Severe, causes swelling of throat, 01/15/17) clarithromycin (Verified Allergy, Severe, causes throat to swell, 01/15/17) codeine (Verified Allergy, Severe, "closed up my throat and itching", 01/31) tolerates percocet, Dilaudid is home med hydrocodone (Verified Allergy, Severe, "closes up my throat and itching", 01/31/17) tolerates percocet, Dilaudid is home med silver sulfadiazine (Verified Allergy, Severe, Rash, 01/15/17) oxycodone (Verified Allergy, Intermediate, 01/15/17) tramadol (Verified Allergy, Intermediate, Nausea and Vomiting, 01/15/17) I S O L A T I O N *CONTACT* (Verified Allergy, Unknown, 01/15/17) mrsa ASSESSMENT/PLAN ASSESSMENT/PLAN Patient seen and examined. Agree with TALENT DIRECTOR's assessment and plan. Chest pain with atypical features and most probably musculoskeletal. Myocardial infarction ruled out. Recent cardiac catheterization showed patent LAD stent. Chronic systolic heart failure clinically well compensated. Continue fluid removal with hemodialysis per nephrology team. Agree with proton pump inhibitors. Thank you for your consultation. Problems: ATN KILLIAN APRN May 21, 2017 09:59 SHEREEN ORTIZ MD May 21, 2017 16:03
--- NOTE | 2017-05-21 10:13 | RAD ---
Indication chest pain. A single view of the chest was obtained and is compared to an examination 05/05/2017. Mild cardiomegaly is noted similar to the previous exam. There is perhaps slight pulmonary vascular congestion. No gross congestive heart failure is seen. There is no consolidated pneumonia. Significant pleural fluid is not present. There is no pneumothorax. Right-sided dialysis catheter is noted. IMPRESSION: Stable cardiomegaly. No focal consolidated pneumonia seen. Suspect mild pulmonary vascular congestion
--- NOTE | 2017-05-21 10:28 | PDOC1 ---
KENDYJustinYVONNE EVANS DISASTER DIRECTOR 05/21/17 1028: HISTORY AND PHYSICAL Chief Complaint Chief Complaint This 46 year old female has been admitted with a chief complaint of chest pain. She reports waking from sleep with anterior chest pain radiating to left side chest. It is pain with burning sensation. Accompanying symptoms included shortness of breath, nausea and diaphoresis. She presented to the ED for evaluation. Per ED note she reports chest pain waxing and waning for one day and O2 sats would drop with speaking. CXR report is pending. Her initial troponin was 0.023. EKG per ED physician ST with new RBBB. VQ scan is pending. During physical exam she c/o same burning pain MS left sided and reported this is same pain in her heart. She is admitted for further evaluation and treatment. Cardiology and pulmonology have been consulted. Problem List Problems Medical Problems: (1) DM (diabetes mellitus) Status: Acute (2) History of blood clots Status: Acute (3) History of heart attack Status: Acute Past Medical History Cardiovascular: CAD, CHF (EF 25% per CC February 2017), HTN, OK, Hyperlipidemia, Valve insufficiency (MR TR ), Other Pulmonary: COPD, Pulmonary embolus (anticoagulation eliquis ), Other (h/o DVT RLE recurrent with previous DVT/PE anticoagulation with Eliquis, PVD. JENNA intolerant to CPAP 2-3L NC-h/o hypercapnic respiratory failure with narcotics ) CENTRAL NERVOUS SYSTEM: CVA, Periperal neuropathy GI: GERD, Other (fatty liver ) Heme/Onc: Anemia NOS Hepatobiliary: Other Psych: Anxiety, Depression Musculoskeletal: low back pain, Osteoarthritis Renal/: Chronic renal failure (ESRD hemodialysis MWF ) Endocrine: Diabetes (Type II chronic insulin neuropathy, PVD, recent diabetic ulcer R foot healed. ), Hyperparathyroidism (secondary ) Past Surgical History Past Surgical History: Cholecystectomy, , Hernia Repair, Other (PCI stent coronary, IVC filter ) Past Family History Family History: Diabetes, Heart Disease, Hypertension Past Social History PSH Lives with brother, remote h/o smoking, neg ETOH or illicit drug use. Review of Symptoms Review of Symptoms A 14 point ROS was completed with the following noted as positive: per HPI Other systems reviewed and negative. Medications Medications reviewed and reconciled. Allergy Allergies Coded Allergies Type Severity Reaction Last Updated Verified Penicillins Allergy Severe causes swelling of throat 01/15/17 Yes Sulfa (Sulfonamide Antibiotics) Allergy Severe causes throat to swell 01/15/17 Yes amoxicillin Allergy Severe causes swelling of throat 01/15/17 Yes clarithromycin Allergy Severe causes throat to swell 01/15/17 Yes codeine Allergy Severe "closed up my throat and itching" 01/31/17 Yes hydrocodone Allergy Severe "closes up my throat and itching" 01/31/17 Yes silver sulfadiazine Allergy Severe Rash 01/15/17 Yes oxycodone Allergy Intermediate 01/15/17 Yes tramadol Allergy Intermediate Nausea and Vomiting 01/15/17 Yes I S O L A T I O N *CONTACT* Allergy Unknown 01/15/17 Yes Physical Exam Physical Exam General appearance - alert, chronically appearing, and in mild distress anxious Mental Status - alert, oriented to person, place, and time, anxious Head - normal Chest - clear to auscultation, no wheezes, rales or rhonchi, symmetric air entry Heart - S1 and S2 normal tachy Abdomen - soft, nontender, nondistended, obese, BS + Neurological - no acute focal neurological deficit noted Musculoskeletal - MS tenderness L anterior chest Extremities - + edema with chronic venous stasis changes. Skin - warm and dry VTE Prophylaxis Ordered VTE Prophylaxis Devices: No VTE Pharmacological Prophylaxi: Yes Assessment Labs Laboratory Tests Test 05/21/17 09:10 White Blood Count 11.5 x10^3/uL (4.0-11.0) Red Blood Count 4.88 x10^6/uL (3.50-5.40) Hemoglobin 13.9 g/dL (12.0-15.5) Hematocrit 42.5 % (36.0-47.0) Mean Corpuscular Volume 87 fL (79-100) Mean Corpuscular Hemoglobin 28 pg (25-35) Mean Corpuscular Hemoglobin Concent 33 g/dL (31-37) Red Cell Distribution Width 20.1 % (11.5-14.5) Platelet Count 195 x10^3/uL (140-400) Neutrophils (%) (Auto) 79 % (31-73) Lymphocytes (%) (Auto) 13 % (24-48) Monocytes (%) (Auto) 5 % (0-9) Eosinophils (%) (Auto) 2 % (0-3) Basophils (%) (Auto) 1 % (0-3) Neutrophils # (Auto) 9.1 x10^3uL (1.8-7.7) Lymphocytes # (Auto) 1.5 x10^3/uL (1.0-4.8) Monocytes # (Auto) 0.5 x10^3/uL (0.0-1.1) Eosinophils # (Auto) 0.2 x10^3/uL (0.0-0.7) Basophils # (Auto) 0.1 x10^3/uL (0.0-0.2) Sodium Level 140 mmol/L (136-145) Potassium Level 3.7 mmol/L (3.5-5.1) Chloride Level 102 mmol/L (98-107) Carbon Dioxide Level 29 mmol/L (21-32) Anion Gap 9 (6-14) Blood Urea Nitrogen 19 mg/dL (7-20) Creatinine 2.6 mg/dL (0.6-1.0) Estimated GFR (Cockcroft-Gault) 19.7 Glucose Level 242 mg/dL (70-99) Calcium Level 8.7 mg/dL (8.5-10.1) Total Bilirubin 0.4 mg/dL (0.2-1.0) Direct Bilirubin 0.1 mg/dL (0.0-0.2) Aspartate Amino Transf (AST/SGOT) 16 U/L (15-37) Alanine Aminotransferase (ALT/SGPT) 20 U/L (14-59) Alkaline Phosphatase 135 U/L (46-116) Troponin I Quantitative 0.023 ng/mL (0.000-0.055) Total Protein 7.3 g/dL (6.4-8.2) Albumin 2.7 g/dL (3.4-5.0) Lipase 96 U/L (73-393) Laboratory Tests Test 05/21/17 09:10 White Blood Count 11.5 x10^3/uL (4.0-11.0) Red Blood Count 4.88 x10^6/uL (3.50-5.40) Hemoglobin 13.9 g/dL (12.0-15.5) Hematocrit 42.5 % (36.0-47.0) Mean Corpuscular Volume 87 fL (79-100) Mean Corpuscular Hemoglobin 28 pg (25-35) Mean Corpuscular Hemoglobin Concent 33 g/dL (31-37) Red Cell Distribution Width 20.1 % (11.5-14.5) Platelet Count 195 x10^3/uL (140-400) Neutrophils (%) (Auto) 79 % (31-73) Lymphocytes (%) (Auto) 13 % (24-48) Monocytes (%) (Auto) 5 % (0-9) Eosinophils (%) (Auto) 2 % (0-3) Basophils (%) (Auto) 1 % (0-3) Neutrophils # (Auto) 9.1 x10^3uL (1.8-7.7) Lymphocytes # (Auto) 1.5 x10^3/uL (1.0-4.8) Monocytes # (Auto) 0.5 x10^3/uL (0.0-1.1) Eosinophils # (Auto) 0.2 x10^3/uL (0.0-0.7) Basophils # (Auto) 0.1 x10^3/uL (0.0-0.2) Sodium Level 140 mmol/L (136-145) Potassium Level 3.7 mmol/L (3.5-5.1) Chloride Level 102 mmol/L (98-107) Carbon Dioxide Level 29 mmol/L (21-32) Anion Gap 9 (6-14) Blood Urea Nitrogen 19 mg/dL (7-20) Creatinine 2.6 mg/dL (0.6-1.0) Estimated GFR (Cockcroft-Gault) 19.7 Glucose Level 242 mg/dL (70-99) Calcium Level 8.7 mg/dL (8.5-10.1) Total Bilirubin 0.4 mg/dL (0.2-1.0) Direct Bilirubin 0.1 mg/dL (0.0-0.2) Aspartate Amino Transf (AST/SGOT) 16 U/L (15-37) Alanine Aminotransferase (ALT/SGPT) 20 U/L (14-59) Alkaline Phosphatase 135 U/L (46-116) Troponin I Quantitative 0.023 ng/mL (0.000-0.055) Total Protein 7.3 g/dL (6.4-8.2) Albumin 2.7 g/dL (3.4-5.0) Lipase 96 U/L (73-393) Plan Plan IMPRESSION: 1. anterior chest pain radiation to L side chest 2. L anterior chest MS burning pain with palpation 3. systolic CHF EF 25% per CC stable 4. acute on chronic respiratory failure with O2 desat with speaking in ED 5. ESRD requiring hemodialysis 6. DVT RLE 12/11/16 on Eliquis with h/o PE, DVT RLE & IVC filter 7. DM II with neuropathy, PVD, chronic insulin use 8. anxiety/depression 9. HTN 10. hyperlipidemia 11. CAD with h/o OK and PCI with stent placed 12. GERD 13. chronic LBP 15. h/o hypercapnic/hypoxic respiratory failure with narcotics 13. 16. h/o CVA 17. COPD with remote h/o tobacco abuse 18. h/o urine retention 19. 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 morbid obesity 21. JENNA O2 3L NC at hs (CPAP in tolerant) 22. chronic moderate PCL malnutrition 23. anemia CD renal 24. abnormal UA PLAN: chest pain cardiology consult EKG new RBBB otherwise no change c/w previous EKG CC February 2017 patent LAD stent, negative troponin 0.023 hypoxia with speaking, chronic RF with O2 reported sats in 80s with speaking h/o PE on chronic eliquis and has IVC filter check dopplers LE pulmonary consulted nebulizer treatments O2 to maintain sat >90% VQ scan pending MS burning pain L ant chest chronic issue ?neuropathic as pain is burning pain? begin gabapentin 200mg at hs-re eval. Will add voltaren gel topical for MS pain. ESRD HD inpatient Dr. Toussaint consulted DM II FSBS/ssi Home Lantus 60units bid-change to Levemir 30 units bid Home Novolog 45u TID AC-change to 15unit TID ac SSI low intensity No ADA diet, does not follow at home CHF not acute daily wt intake output ESRD consult nephrology in patient HD Nausea zofran prn continue reglan DVT/GI prophylaxis eliquis PPI For more details regarding further plans, please refer to the orders. CHELE SINGH MD 05/21/17 4746: HISTORY AND PHYSICAL Plan Plan D/w patient,family,.She is taking Eliquis.Take PPI. D/w yesterday about outpatient HD. The patient was seen and examined by me. Chart reviewed and plan of care formulated. Discussed with, reviewed and agree with DARKLIGHT INSPECTOR's notes, plan of care and orders with modifications as necessary. For more details regarding further plans, please refer to the orders. YVONNE LAYNE APRN May 21, 2017 10:28 CHELE SINGH MD May 21, 2017 11:08
[2017-05-21] MEDS ORDERED: CALCIUM CARBONATE 500 MG TAB.CHEW PO PRN (10:30)
[2017-05-21] MEDS ORDERED: ACETAMINOPHEN 325 MG TABLET. PO PRN (10:30)
[2017-05-21 11:00] VITALS: BP 104/85
[2017-05-21] MEDS: METOPROLOL TART IMMED RELEASE 25 MG TABLET. PO SCH ×2 (11:00→21:00)
[2017-05-21] MEDS: DICLOFENAC SODIUM 1% TOPICAL GEL 100GM TUBE. TP SCH (11:00)
[2017-05-21] MEDS: PANTOPRAZOLE 40 MG TABLET.DR. PO SCH ×2 (11:00)
[2017-05-21] MEDS: APIXABAN 5 MG TABLET. PO SCH ×2 (11:00→22:15)
[2017-05-21 11:22] LABS: ANISOCYTOSIS PRESENT; PLT ESTIMATE ADEQUATE (ADEQUATE)
[2017-05-21] MEDS: METOCLOPRAMIDE 10 MG TABLET. PO SCH ×2 (11:30→16:30)
[2017-05-21] MEDS: INSULIN ASPART 300 UNITS/3 ML INSULN.PEN SQ SCH ×2 (11:30→16:30)
[2017-05-21] MEDS: IPRATRPIUM/ALBUTEROL 0.5/2.5MG 3 ML NEBU. NEB SCH ×2 (11:41→16:43)
--- NOTE | 2017-05-21 12:02 | PDOC2 ---
CONSULT Date of Consult Date of Consult DATE: 05/21/17 TIME: 11:59 Reason for Consult Reason for Consult: ESRD Referring Physician Referring Physician: FRANCISCO Identification/Chief Complaint Chief Complaint CHEST PAIN Problems: Source Source: Chart review, Patient History of Present Illness Reason for Visit: THIS IS A 46 YR OLD ADMITTED WITH CHEST PAIN. SHE CANT TELL IF ITS HEART BURN OR HEART PAIN. NO RADIATION OR ASSOCIATED SOB OR DIAPHORESIS. SHE HAS ESRD DUE TO DM II AND HTN AND HAS OP HD ON MWF. LABS ARE C/W ESRD Past Medical History Cardiovascular: CAD, CHF (EF 25% per CC February 2017), HTN, [place], Hyperlipidemia, Valve insufficiency (MR TR ), Other Pulmonary: COPD, Pulmonary embolus (anticoagulation eliquis ), Other (h/o DVT RLE recurrent with previous DVT/PE anticoagulation with Eliquis, PVD. JENNA intolerant to CPAP 2-3L NC-h/o hypercapnic respiratory failure with narcotics ) CENTRAL NERVOUS SYSTEM: CVA, Periperal neuropathy GI: GERD, Other (fatty liver ) Heme/Onc: Anemia NOS Hepatobiliary: Other Psych: Anxiety, Depression Musculoskeletal: low back pain, Osteoarthritis Renal/: Chronic renal failure (ESRD hemodialysis MWF ) Endocrine: Diabetes (Type II chronic insulin neuropathy, PVD, recent diabetic ulcer R foot healed. ), Hyperparathyroidism (secondary ) Past Surgical History Past Surgical History: Cholecystectomy, , Hernia Repair, Other (PCI stent coronary, IVC filter ) Family History Family History: Diabetes, Heart Disease, Hypertension Social History No ALCOHOL: none Drugs: None Lives: with Family Current Problem List Problem List Problems Medical Problems: (1) DM (diabetes mellitus) Status: Acute (2) History of blood clots Status: Acute (3) History of heart attack Status: Acute Current Medications Current Medications Current Medications Ondansetron HCl (Zofran) 4 mg PRN Q8HRS PRN IV NAUSEA/VOMITING Last administered on 05/21/17 09:57; Start 05/21/17 at 09:45; Stop 05/21/17 at 10:27 ; Status DC Morphine Sulfate 2 mg PRN Q2HR PRN IV PAIN Last administered on 05/21/17 09:58 ; Start 05/21/17 at 09:45; Stop 05/21/17 at 10:27; Status DC Nitroglycerin (Nitrostat) 0.4 mg PRN Q5MIN PRN SL CHEST PAIN Last administered on 05/21/17 09:59; Start 05/21/17 at 09:45; Stop 05/21/17 at 10:27; Status DC Albuterol/ Ipratropium (Duoneb) 3 ml 1X ONCE NEB Last administered on 10:08; Start 05/21/17 at 09:45; Stop 05/21/17 at 09:50; Status DC Nitroglycerin (Nitrostat) 0.4 mg PRN Q5MIN PRN SL CHEST PAIN; Start 05/21/17 at 10:30 Ondansetron HCl (Zofran) 4 mg PRN Q8HRS PRN IV NAUSEA/VOMITING; Start 05/21/17 at 10:30 Acetaminophen (Tylenol) 650 mg PRN Q6HRS PRN PO MILD PAIN / TEMP; Start at 10:30 Apixaban (Eliquis) 5 mg BID PO ; Start 05/21/17 at 11:00 Aspirin (Ecotrin) 81 mg DAILY PO ; Start 05/22/17 at 09:00 Atorvastatin Calcium (Lipitor) 40 mg HS PO ; Start 05/21/17 at 21:00 Calcium Carbonate/ Glycine (Tums) 500 mg PRN AFTMEALHC PRN PO INDIGESTION; Start 05/21/17 at 10:30 Carvedilol (Coreg) 3.125 mg BID PO ; Start 05/21/17 at 21:00; Stop 05/21/17 at 21:00; Status DC Fentanyl (Duragesic 50mcg/ Hr Patch) 1 patch Q3DAYS TD ; Start 05/24/17 at 09:00 Hydromorphone HCl (Dilaudid) 4 mg PRN Q6HRS PRN PO PAIN; Start 05/21/17 at 10: 30 Albuterol/ Ipratropium (Duoneb) 3 ml RTQID NEB Last administered on 05/21/17 11:41; Start 05/21/17 at 12:00 Magnesium Oxide (Magnesium Oxide) 400 mg TID PO ; Start 05/21/17 at 14:00 Metoclopramide HCl (Reglan) 5 mg TIDAC PO ; Start 05/21/17 at 11:30 Insulin Aspart (NovoLOG) 15 units TIDAC SQ ; Start 05/21/17 at 11:30 Insulin Detemir (Levemir) 30 units BID76 SQ ; Start 05/21/17 at 18:00 Pantoprazole Sodium (Protonix) 40 mg DAILY PO ; Start 05/21/17 at 11:00 Gabapentin (Neurontin) 200 mg HS PO ; Start 05/21/17 at 21:00 Diclofenac Sodium (Voltaren) 1 stephanie DAILY TP ; Start 05/21/17 at 11:00 Metoprolol Tartrate (Lopressor) 25 mg BID PO ; Start 05/21/17 at 11:00 Pantoprazole Sodium (Protonix) 40 mg DAILYAC PO ; Start 05/21/17 at 11:00 Active Scripts Active Novolog (Insulin Aspart) 100 Unit/1 Ml Cartridge 45 Unit SQ TIDAC Inject TID AC Lantus Solostar (Insulin Glargine,Hum.rec.anlog) 100 Unit/1 Ml Insuln.pen 60 Unit SQ BID Inject sub q bid Dilaudid (Hydromorphone Hcl) 4 Mg Tablet 1 Tab PO PRN Q6HRS PRN Tylenol (Acetaminophen) 325 Mg Tablet 650 Mg PO PRN Q6HRS PRN Metoclopramide Hcl 10 Mg Tablet 5 Mg PO TIDAC Calcium Carbonate 200 Mg Tab.chew 500 Mg PO PRN AFTMEALHC PRN Vitamin C (Ascorbic Acid) 500 Mg Tablet 500 Mg PO DAILY Eliquis (Apixaban) 5 Mg Tablet 5 Mg PO BID FENTANYL 50mcg/hr (Fentanyl) 1 Each Patch.td72 1 Patch TD Q3DAYS Coreg (Carvedilol) 3.125 Mg Tablet 1 Tab PO BID Zofran Odt (Ondansetron) 4 Mg Tab.rapdis 1 Tab SL PRN Q6HRS PRN Duoneb 0.5-3(2.5) Mg/3 Ml (Albuterol/Ipratropium) 3 Ml Ampul.neb 3 Ml NEB RTQID Reported Magnesium Oxide 400 Mg Tablet 400 Mg PO TID Aspir 81 (Aspirin) 81 Mg Tablet.dr 81 Mg PO DAILY Nitrostat (Nitroglycerin) 0.4 Mg Tab.subl 0.4 Mg SL PRN Q5MIN PRN Atorvastatin Calcium 40 Mg Tablet 40 Mg PO HS Omeprazole 20 Mg Capsule.dr 20 Mg PO HS Allergies Allergies: Coded Allergies: Penicillins (Verified Allergy, Severe, causes swelling of throat, 01/15/17) Sulfa (Sulfonamide Antibiotics) (Verified Allergy, Severe, causes throat to swell, 01/15/17) amoxicillin (Verified Allergy, Severe, causes swelling of throat, 01/15/17) clarithromycin (Verified Allergy, Severe, causes throat to swell, 01/15/17) codeine (Verified Allergy, Severe, "closed up my throat and itching", 01/31) tolerates percocet, Dilaudid is home med hydrocodone (Verified Allergy, Severe, "closes up my throat and itching", 01/31/17) tolerates percocet, Dilaudid is home med silver sulfadiazine (Verified Allergy, Severe, Rash, 01/15/17) oxycodone (Verified Allergy, Intermediate, 01/15/17) tramadol (Verified Allergy, Intermediate, Nausea and Vomiting, 01/15/17) I S O L A T I O N *CONTACT* (Verified Allergy, Unknown, 01/15/17) mrsa ROS General: YES: Fatigue PSYCHOLOGICAL ROS: YES: Anxiety HEENT: YES: Heacaches Respiratory: YES: Cough Cardiovascular: yes Chest Pain Gastrointestinal: Yes Constipation Genitourinary: YES Other (NOCTURIA) Musculoskeletal: Yes Muscular Weakness Neurological: Yes Weakness Skin: Yes Dry Skin Physical Exam General: Alert, Oriented X3, No acute distress HEENT: Atraumatic, EOMI Lungs: Clear to auscultation Heart: Regular rate, No murmurs Abdomen: Normal bowel sounds, No tenderness Extremities: No clubbing, Other (TRACE EDEMA) Neuro: Normal speech, Cranial nerves 3-12 NL Psych/Mental Status: Mental status NL, Mood NL MUSCULOSKELETAL: No deformity, No swelling Vitals VITALS Vital Signs Date Time Temp Pulse Resp B/P (MAP) Pulse Ox O2 Delivery O2 Flow Rate FiO2 05/21/17 11:42 Nasal Cannula 3.0 05/21/17 10:08 84 05/21/17 10:04 111 16 104/56 (72) 05/21/17 09:01 98.1 98.1 Labs Labs Laboratory Tests Test 05/21/17 09:10 White Blood Count 11.5 x10^3/uL (4.0-11.0) Red Blood Count 4.88 x10^6/uL (3.50-5.40) Hemoglobin 13.9 g/dL (12.0-15.5) Hematocrit 42.5 % (36.0-47.0) Mean Corpuscular Volume 87 fL (79-100) Mean Corpuscular Hemoglobin 28 pg (25-35) Mean Corpuscular Hemoglobin Concent 33 g/dL (31-37) Red Cell Distribution Width 20.1 % (11.5-14.5) Platelet Count 195 x10^3/uL (140-400) Neutrophils (%) (Auto) 79 % (31-73) Lymphocytes (%) (Auto) 13 % (24-48) Monocytes (%) (Auto) 5 % (0-9) Eosinophils (%) (Auto) 2 % (0-3) Basophils (%) (Auto) 1 % (0-3) Neutrophils # (Auto) 9.1 x10^3uL (1.8-7.7) Lymphocytes # (Auto) 1.5 x10^3/uL (1.0-4.8) Monocytes # (Auto) 0.5 x10^3/uL (0.0-1.1) Eosinophils # (Auto) 0.2 x10^3/uL (0.0-0.7) Basophils # (Auto) 0.1 x10^3/uL (0.0-0.2) Platelet Estimate Adequate (ADEQUATE) Anisocytosis Present Sodium Level 140 mmol/L (136-145) Potassium Level 3.7 mmol/L (3.5-5.1) Chloride Level 102 mmol/L (98-107) Carbon Dioxide Level 29 mmol/L (21-32) Anion Gap 9 (6-14) Blood Urea Nitrogen 19 mg/dL (7-20) Creatinine 2.6 mg/dL (0.6-1.0) Estimated GFR (Cockcroft-Gault) 19.7 Glucose Level 242 mg/dL (70-99) Calcium Level 8.7 mg/dL (8.5-10.1) Total Bilirubin 0.4 mg/dL (0.2-1.0) Direct Bilirubin 0.1 mg/dL (0.0-0.2) Aspartate Amino Transf (AST/SGOT) 16 U/L (15-37) Alanine Aminotransferase (ALT/SGPT) 20 U/L (14-59) Alkaline Phosphatase 135 U/L (46-116) Troponin I Quantitative 0.023 ng/mL (0.000-0.055) RO-Zjh-L-Type Natriuretic Peptide 1510 pg/mL (0-124) Total Protein 7.3 g/dL (6.4-8.2) Albumin 2.7 g/dL (3.4-5.0) Lipase 96 U/L (73-393) Laboratory Tests Test 05/21/17 09:10 White Blood Count 11.5 x10^3/uL (4.0-11.0) Red Blood Count 4.88 x10^6/uL (3.50-5.40) Hemoglobin 13.9 g/dL (12.0-15.5) Hematocrit 42.5 % (36.0-47.0) Mean Corpuscular Volume 87 fL (79-100) Mean Corpuscular Hemoglobin 28 pg (25-35) Mean Corpuscular Hemoglobin Concent 33 g/dL (31-37) Red Cell Distribution Width 20.1 % (11.5-14.5) Platelet Count 195 x10^3/uL (140-400) Neutrophils (%) (Auto) 79 % (31-73) Lymphocytes (%) (Auto) 13 % (24-48) Monocytes (%) (Auto) 5 % (0-9) Eosinophils (%) (Auto) 2 % (0-3) Basophils (%) (Auto) 1 % (0-3) Neutrophils # (Auto) 9.1 x10^3uL (1.8-7.7) Lymphocytes # (Auto) 1.5 x10^3/uL (1.0-4.8) Monocytes # (Auto) 0.5 x10^3/uL (0.0-1.1) Eosinophils # (Auto) 0.2 x10^3/uL (0.0-0.7) Basophils # (Auto) 0.1 x10^3/uL (0.0-0.2) Platelet Estimate Adequate (ADEQUATE) Anisocytosis Present Sodium Level 140 mmol/L (136-145) Potassium Level 3.7 mmol/L (3.5-5.1) Chloride Level 102 mmol/L (98-107) Carbon Dioxide Level 29 mmol/L (21-32) Anion Gap 9 (6-14) Blood Urea Nitrogen 19 mg/dL (7-20) Creatinine 2.6 mg/dL (0.6-1.0) Estimated GFR (Cockcroft-Gault) 19.7 Glucose Level 242 mg/dL (70-99) Calcium Level 8.7 mg/dL (8.5-10.1) Total Bilirubin 0.4 mg/dL (0.2-1.0) Direct Bilirubin 0.1 mg/dL (0.0-0.2) Aspartate Amino Transf (AST/SGOT) 16 U/L (15-37) Alanine Aminotransferase (ALT/SGPT) 20 U/L (14-59) Alkaline Phosphatase 135 U/L (46-116) Troponin I Quantitative 0.023 ng/mL (0.000-0.055) IK-Ncs-G-Type Natriuretic Peptide 1510 pg/mL (0-124) Total Protein 7.3 g/dL (6.4-8.2) Albumin 2.7 g/dL (3.4-5.0) Lipase 96 U/L (73-393) Assessment/Plan Assessment/Plan IMP CHEST PAIN ANEMIA DM II HTN ESRD PLAN CHEST PAIN EVAL HD TODAY UF TO [facility] D/W ATTENDING SARA RUIZ MD May 21, 2017 12:02
--- NOTE | 2017-05-21 12:38 | RAD ---
Lung scan 05/21/2017 Clinical history: Chest pain since 7 a.m. this morning. History of previous DVT and PE. Technique: After the administration of 16.0 mCi of xenon-133 gas, ventilation images of both lungs were obtained using the gamma camera. After the intravenous administration of 12.5 mCi of technetium 99m MAA, perfusion images of both lungs were obtained using the gamma camera. Findings: Comparison is made to a portable chest radiograph dated 05/21/2017. This demonstrates mild cardiomegaly. No acute pulmonary infiltrate is seen. Slightly heterogeneous ventilation and perfusion to both lungs is seen. No unmatched perfusion defect is noted. These findings are consistent with a low probability study for pulmonary embolism. Impression: Low probability study.
--- NOTE | 2017-05-21 13:02 | PDOC ---
Provider Note Provider Note dictated KELI BORDEN MD May 21, 2017 13:02
[2017-05-21] MEDS: HYDROmorphone 4 MG TABLET PO PRN ×2 (13:47→22:16)
[2017-05-21] MEDS: MAGNESIUM OXIDE 400 MG TABLET PO SCH ×2 (14:00→21:00)
--- NOTE | 2017-05-21 14:04 | CONS ---
DATE OF CONSULTATION: ATTENDING PHYSICIAN: Dr. Dunia Johnson. REASON FOR CONSULTATION: Dyspnea and chest pain. HISTORY OF PRESENT ILLNESS: The patient is a 46-year-old obese patient who has history of COPD. She has history of recurrent DVT, PE and has been on chronic Eliquis. She also has a history of severe cardiomyopathy with an EF of 25% and a previous cardiac catheterization with increased left ventricular end-diastolic pressure of 35. The patient was brought into the hospital with complaint of chest pain in the left side and radiating to the left shoulder and also to the right side. The patient has no cough. She has mild shortness of breath. She was noted to have low oxygen saturations as a result she was sent to the ER. Her previous cardiac catheterization also showed a patent LAD stent. Her chest x-ray was reviewed and showed cardiomegaly and mild vascular congestion, consistent with congestive heart failure. I have also reviewed the V/Q scan, which was of low probability for thromboembolic disease. She states she has not missed her dialysis session. She was noted to have a blood pressure of 104/85 on admission. PAST MEDICAL HISTORY: Significant for history of cardiomyopathy with an EF of 25%, history of hypertension ____ NC, history of cardiac stents, history of peripheral vascular disease, history of COPD, history of recurrent DVT and PE, on Eliquis. History of JENNA, untreated due to noncompliance. History of cerebrovascular accident, peripheral neuropathy, morbid obesity. Depression, low back pain, history of C. diff and pseudomonas infection. History of end-stage renal disease, history of diabetes. PAST SURGICAL HISTORY: No recent surgery. Prior surgeries include the cholecystectomy, ____, hernia repair, toe amputation, IVC filter, PCI stent. Cardiac catheterization. REVIEW OF SYSTEMS: Twelve-point system obtained. Pertinent positives discussed in my history of present illness, otherwise noncontributory. All systems that were negative were reviewed as well. ALLERGIES: All reviewed as listed in her medical records. MEDICATIONS: All reviewed as listed in the [facility]. SOCIAL HISTORY: Smoked since age 12 up to 1 pack per day and down to one cigarette a day. PHYSICAL EXAMINATION: VITAL SIGNS: Stable, blood pressure 104/85, afebrile, pulse ox 97% on 2 liters. HEENT: Sclerae nonicteric. NECK: Supple. LUNGS: Diminished breath sounds. CARDIOVASCULAR: Regular rate and rhythm. ABDOMEN: Soft, obese. EXTREMITIES: With bilateral pitting edema and venous stasis. LABORATORY DATA: Reviewed. Her white cell count 11.5, hemoglobin 13.9, platelets are 195. ProBNP is 1510. Potassium 3.7. IMPRESSION: 1. Acute hypoxic respiratory failure secondary to most likely congestive heart failure. 2. Chest pain could be atypical, but need to rule out any cardiac etiology. Her VQ scan was of low probability for thromboembolic disease and PE has been ruled out. 3. History of end-stage renal disease, on hemodialysis. 4. History of chronic obstructive pulmonary disease, but does not appear to have acute exacerbation as she has no wheezing. 5. Lower extremity edema. Venous Dopplers are being ordered, but most likely related to decompensated congestive heart failure. 6. History of recurrent DVT and PE, on chronic Eliquis. RECOMMENDATIONS: 1. Continue with hemodialysis with ultrafiltration. She is scheduled for today. 2. Continue Eliquis. 3. Follow results of venous Dopplers. It would not change the treatment as far as Eliquis is concerned. She already has an IVC filter. 4. Minimize the use of narcotics, may have contributed to hypoxia/hypoventilation. 5. Follow renal recommendations. 6. Follow Cardiology recommendation. 7. Continue bronchodilators. 8. Discussed with RN and Dr. Dunia Johnson. KELI BORDEN MD DR: MINOR/britney JOB#: [id number] / [id number]
--- NOTE | 2017-05-21 14:29 | RAD ---
Indication swelling. Grayscale color Doppler and spectral imaging was performed. Examination was targeted to the veins of the lower extremities. Bilaterally the common femoral, femoral and popliteal vessels demonstrate normal flow compressibility and augmentation. No thrombus is seen. The visualized calf veins, bilaterally, appeared unremarkable. IMPRESSION: Negative bilateral lower extremity venous analysis for DVT
[2017-05-21] MEDS ORDERED: IV NORMAL SALINE 1000ML BAG 1,000 ML IV PRN ×2 (15:05)
[2017-05-21] MEDS ORDERED: DIALYSIS PATIENT. MC PRN ×2 (15:15)
[2017-05-21] MEDS ORDERED: ALBUTEROL SULFATE 2.5 MG/3 ML NEBU. NEB PRN (17:15)
[2017-05-21 20:15] VITALS: BP 102/63
[2017-05-21] MEDS ORDERED: GABAPENTIN 100 MG CAPSULE. PO SCH (21:00)
[2017-05-21] MEDS ORDERED: CARVEDILOL 3.125 MG TABLET. PO SCH (21:00)
[2017-05-21] MEDS ORDERED: ATORVASTATIN CALCIUM 40 MG TABLET. PO SCH (21:00)
[2017-05-21] MEDS: INSULIN DETEMIR 300 UNITS/3 ML INSULN.PEN. SQ SCH (22:19)
[2017-05-21 23:27] VITALS: BP 90/53
[2017-05-22 03:50] VITALS: BP 100/62
[2017-05-22 05:33] LABS: BASO # 0.1 x10^3/uL (0.0-0.2); BASO % 1 % (0-3); EOS % 2 % (0-3); HEMATOCRIT 40.5 % (36.0-47.0); HEMOGLOBIN 13.2 g/dL (12.0-15.5); LYMPH # 1.4 x10^3/uL (1.0-4.8); LYMPH % 16 % (24-48); MEAN CORPUSCULAR HEMOGLOBIN 28 pg (25-35); MEAN CORPUSCULAR HGB CONC 33 g/dL (31-37); MEAN CORPUSCULAR VOLUME 87 fL (79-100); MONO % 5 % (0-9); NEUT % 76 % (31-73); PLATELET COUNT 186 x10^3/uL (140-400); RED BLOOD COUNT 4.66 x10^6/uL (3.50-5.40); WHITE BLOOD COUNT 8.8 x10^3/uL (4.0-11.0)
[2017-05-22 06:19] LABS: CALCIUM 8.3 mg/dL (8.5-10.1); CREATININE 1.8 mg/dL (0.6-1.0); GFR 30.2; POTASSIUM 3.8 mmol/L (3.5-5.1)
[2017-05-22] MEDS: INSULIN DETEMIR 300 UNITS/3 ML INSULN.PEN. SQ SCH (06:36)
[2017-05-22 07:00] VITALS: BP 87/52
[2017-05-22] MEDS: PANTOPRAZOLE 40 MG TABLET.DR. PO SCH ×2 (08:52→08:59)
[2017-05-22] MEDS: METOCLOPRAMIDE 10 MG TABLET. PO SCH ×2 (08:53→11:30)
[2017-05-22] MEDS: MAGNESIUM OXIDE 400 MG TABLET PO SCH (08:54)
[2017-05-22] MEDS: INSULIN ASPART 300 UNITS/3 ML INSULN.PEN SQ SCH (08:56)
[2017-05-22] MEDS: APIXABAN 5 MG TABLET. PO SCH (08:58)
[2017-05-22] MEDS: METOPROLOL TART IMMED RELEASE 25 MG TABLET. PO SCH (08:58)
[2017-05-22] MEDS: DICLOFENAC SODIUM 1% TOPICAL GEL 100GM TUBE. TP SCH (08:59)
[2017-05-22] MEDS ORDERED: ASPIRIN ENTERIC COATED 81 MG TABLET.DR. PO SCH (09:00)
--- NOTE | 2017-05-22 10:09 | PDOC ---
PULMONARY PROGRESS NOTES Subjective feels better Vitals Vital Signs Date Time Temp Pulse Resp B/P (MAP) Pulse Ox O2 Delivery O2 Flow Rate FiO2 05/22/17 07:00 97.9 75 22 87/52 (64) 93 Nasal Cannula 2.0 97.9 General: Alert, No acute distress Lungs: Clear Cardiovascular: S1, S2 Abdomen: Soft, Non-tender Neuro Exam: Alert Extremities: Other (1+edema) Labs Laboratory Tests Test 05/21/17 09:10 05/21/17 11:18 05/21/17 15:10 05/21/17 17:05 White Blood Count 11.5 x10^3/uL (4.0-11.0) Red Blood Count 4.88 x10^6/uL (3.50-5.40) Hemoglobin 13.9 g/dL (12.0-15.5) Hematocrit 42.5 % (36.0-47.0) Mean Corpuscular Volume 87 fL (79-100) Mean Corpuscular Hemoglobin 28 pg (25-35) Mean Corpuscular Hemoglobin Concent 33 g/dL (31-37) Red Cell Distribution Width 20.1 % (11.5-14.5) Platelet Count 195 x10^3/uL (140-400) Neutrophils (%) (Auto) 79 % (31-73) Lymphocytes (%) (Auto) 13 % (24-48) Monocytes (%) (Auto) 5 % (0-9) Eosinophils (%) (Auto) 2 % (0-3) Basophils (%) (Auto) 1 % (0-3) Neutrophils # (Auto) 9.1 x10^3uL (1.8-7.7) Lymphocytes # (Auto) 1.5 x10^3/uL (1.0-4.8) Monocytes # (Auto) 0.5 x10^3/uL (0.0-1.1) Eosinophils # (Auto) 0.2 x10^3/uL (0.0-0.7) Basophils # (Auto) 0.1 x10^3/uL (0.0-0.2) Platelet Estimate Adequate (ADEQUATE) Anisocytosis Present Sodium Level 140 mmol/L (136-145) Potassium Level 3.7 mmol/L (3.5-5.1) Chloride Level 102 mmol/L (98-107) Carbon Dioxide Level 29 mmol/L (21-32) Anion Gap 9 (6-14) Blood Urea Nitrogen 19 mg/dL (7-20) Creatinine 2.6 mg/dL (0.6-1.0) Estimated GFR (Cockcroft-Gault) 19.7 Glucose Level 242 mg/dL (70-99) Calcium Level 8.7 mg/dL (8.5-10.1) Total Bilirubin 0.4 mg/dL (0.2-1.0) Direct Bilirubin 0.1 mg/dL (0.0-0.2) Aspartate Amino Transf (AST/SGOT) 16 U/L (15-37) Alanine Aminotransferase (ALT/SGPT) 20 U/L (14-59) Alkaline Phosphatase 135 U/L (46-116) Troponin I Quantitative 0.023 ng/mL (0.000-0.055) 0.019 ng/mL (0.000-0.055) DE-Sad-D-Type Natriuretic Peptide 1510 pg/mL (0-124) Total Protein 7.3 g/dL (6.4-8.2) Albumin 2.7 g/dL (3.4-5.0) Lipase 96 U/L (73-393) Glucose (Fingerstick) 247 mg/dL (70-99) Nasal Screen MRSA (PCR) Negative (Negative) Test 05/21/17 19:12 05/21/17 20:57 05/21/17 22:00 05/22/17 04:15 Glucose (Fingerstick) 144 mg/dL (70-99) 165 mg/dL (70-99) Troponin I Quantitative < 0.017 ng/mL (0.000-0.055) White Blood Count 8.8 x10^3/uL (4.0-11.0) Red Blood Count 4.66 x10^6/uL (3.50-5.40) Hemoglobin 13.2 g/dL (12.0-15.5) Hematocrit 40.5 % (36.0-47.0) Mean Corpuscular Volume 87 fL (79-100) Mean Corpuscular Hemoglobin 28 pg (25-35) Mean Corpuscular Hemoglobin Concent 33 g/dL (31-37) Red Cell Distribution Width 20.0 % (11.5-14.5) Platelet Count 186 x10^3/uL (140-400) Neutrophils (%) (Auto) 76 % (31-73) Lymphocytes (%) (Auto) 16 % (24-48) Monocytes (%) (Auto) 5 % (0-9) Eosinophils (%) (Auto) 2 % (0-3) Basophils (%) (Auto) 1 % (0-3) Neutrophils # (Auto) 6.6 x10^3uL (1.8-7.7) Lymphocytes # (Auto) 1.4 x10^3/uL (1.0-4.8) Monocytes # (Auto) 0.4 x10^3/uL (0.0-1.1) Eosinophils # (Auto) 0.2 x10^3/uL (0.0-0.7) Basophils # (Auto) 0.1 x10^3/uL (0.0-0.2) Sodium Level 141 mmol/L (136-145) Potassium Level 3.8 mmol/L (3.5-5.1) Chloride Level 102 mmol/L (98-107) Carbon Dioxide Level 27 mmol/L (21-32) Anion Gap 12 (6-14) Blood Urea Nitrogen 9 mg/dL (7-20) Creatinine 1.8 mg/dL (0.6-1.0) Estimated GFR (Cockcroft-Gault) 30.2 Glucose Level 133 mg/dL (70-99) Calcium Level 8.3 mg/dL (8.5-10.1) Magnesium Level 1.9 mg/dL (1.8-2.4) Test 05/22/17 05:17 Glucose (Fingerstick) 191 mg/dL (70-99) Laboratory Tests Test 05/21/17 11:18 05/21/17 15:10 05/21/17 17:05 05/21/17 19:12 Glucose (Fingerstick) 247 mg/dL (70-99) 144 mg/dL (70-99) Troponin I Quantitative 0.019 ng/mL (0.000-0.055) Nasal Screen MRSA (PCR) Negative (Negative) Test 05/21/17 20:57 05/21/17 22:00 05/22/17 04:15 05/22/17 05:17 Glucose (Fingerstick) 165 mg/dL (70-99) 191 mg/dL (70-99) Troponin I Quantitative < 0.017 ng/mL (0.000-0.055) White Blood Count 8.8 x10^3/uL (4.0-11.0) Red Blood Count 4.66 x10^6/uL (3.50-5.40) Hemoglobin 13.2 g/dL (12.0-15.5) Hematocrit 40.5 % (36.0-47.0) Mean Corpuscular Volume 87 fL (79-100) Mean Corpuscular Hemoglobin 28 pg (25-35) Mean Corpuscular Hemoglobin Concent 33 g/dL (31-37) Red Cell Distribution Width 20.0 % (11.5-14.5) Platelet Count 186 x10^3/uL (140-400) Neutrophils (%) (Auto) 76 % (31-73) Lymphocytes (%) (Auto) 16 % (24-48) Monocytes (%) (Auto) 5 % (0-9) Eosinophils (%) (Auto) 2 % (0-3) Basophils (%) (Auto) 1 % (0-3) Neutrophils # (Auto) 6.6 x10^3uL (1.8-7.7) Lymphocytes # (Auto) 1.4 x10^3/uL (1.0-4.8) Monocytes # (Auto) 0.4 x10^3/uL (0.0-1.1) Eosinophils # (Auto) 0.2 x10^3/uL (0.0-0.7) Basophils # (Auto) 0.1 x10^3/uL (0.0-0.2) Sodium Level 141 mmol/L (136-145) Potassium Level 3.8 mmol/L (3.5-5.1) Chloride Level 102 mmol/L (98-107) Carbon Dioxide Level 27 mmol/L (21-32) Anion Gap 12 (6-14) Blood Urea Nitrogen 9 mg/dL (7-20) Creatinine 1.8 mg/dL (0.6-1.0) Estimated GFR (Cockcroft-Gault) 30.2 Glucose Level 133 mg/dL (70-99) Calcium Level 8.3 mg/dL (8.5-10.1) Magnesium Level 1.9 mg/dL (1.8-2.4) Medications Active Scripts Medications Dose Route/Sig Max Daily Dose Days Date Category Dose Instructions Novolog (Insulin Aspart) 100 Unit/1 Ml Cartridge 45 Unit SQ TIDAC 04/30/17 Rx Inject TID AC Lantus Solostar (Insulin Glargine,Hum.rec.anlog) 100 Unit/1 Ml Insuln.pen 60 Unit SQ BID 04/30/17 Rx Inject sub q bid Dilaudid (Hydromorphone Hcl) 4 Mg Tablet 1 Tab PO PRN Q6HRS PRN 03/19/17 Rx Magnesium Oxide 400 Mg Tablet 400 Mg PO TID 01/31/17 Reported Tylenol (Acetaminophen) 325 Mg Tablet 650 Mg PO PRN Q6HRS PRN 01/26/17 Rx Metoclopramide Hcl 10 Mg Tablet 5 Mg PO TIDAC 01/26/17 Rx Calcium Carbonate 200 Mg Tab.chew 500 Mg PO PRN AFTMEALHC PRN 01/26/17 Rx Vitamin C (Ascorbic Acid) 500 Mg Tablet 500 Mg PO DAILY 01/26/17 Rx Eliquis (Apixaban) 5 Mg Tablet 5 Mg PO BID 01/19/17 Rx FENTANYL 50mcg/hr (Fentanyl) 1 Each Patch.td72 1 Patch TD Q3DAYS 12/24/16 Rx Coreg (Carvedilol) 3.125 Mg Tablet 1 Tab PO BID 12/24/16 Rx Zofran Odt (Ondansetron) 4 Mg Tab.rapdis 1 Tab SL PRN Q6HRS PRN 06/23/16 Rx Duoneb 0.5-3(2.5) Mg/3 Ml (Albuterol/Ipratropium) 3 Ml Ampul.neb 3 Ml NEB RTQID 06/10/16 Rx Aspir 81 (Aspirin) 81 Mg Tablet.dr 81 Mg PO DAILY 06/05/16 Reported Nitrostat (Nitroglycerin) 0.4 Mg Tab.subl 0.4 Mg SL PRN Q5MIN PRN 06/05/16 Reported Atorvastatin Calcium 40 Mg Tablet 40 Mg PO HS 06/05/16 Reported Omeprazole 20 Mg Capsule.dr 20 Mg PO HS 06/05/16 Reported Impression . 1. Acute hypoxic respiratory failure secondary to congestive heart failure. 2. Chest pain could be atypical, but need to rule out any cardiac etiology. Her VQ scan was of low probability for thromboembolic disease and PE has been ruled out. 3. History of end-stage renal disease, on hemodialysis. 4. History of chronic obstructive pulmonary disease, but does not appear to have acute exacerbation as she has no wheezing. 5. Lower extremity edema. Venous Dopplers are being ordered, but most likely related to decompensated congestive heart failure. 6. History of recurrent DVT and PE, on chronic Eliquis. Plan . 1. Continue with hemodialysis with ultrafiltration. she feels better with HD 2. Continue Eliquis. 3. Neg venous Dopplers. She already has an IVC filter. 4. Minimize the use of narcotics, may have contributed to hypoxia/hypoventilation. 5. Follow renal recommendations. 6. Follow Cardiology recommendation. 7. Continue bronchodilators. KELI BORDEN MD May 22, 2017 10:09
--- NOTE | 2017-05-22 10:14 | PDOC3 ---
KENDY-CRISTINAYVONNE POLICE AIDE 05/22/17 1014: IM DISCHARGE & PROGRESS NOTES Date of Admission Date of Admission Date of Admission: May 21, 2017 at 09:36 Date of Discharge Date of Discharge 05/22/17 Primary Diagnosis Primary Diagnosis 1. anterior chest pain radiation to L side chest MS and neuropathic from DM 2. L anterior chest MS burning pain with palpation neuropathy from DM 3. systolic CHF EF 25% per CC stable 4. acute on chronic respiratory failure with O2 desat with speaking in ED resolved 5. ESRD requiring hemodialysis 6. DVT RLE 12/11/16 on Eliquis with h/o PE, DVT RLE & IVC filter 7. DM II with neuropathy, PVD, chronic insulin use 8. anxiety/depression 9. HTN 10. hyperlipidemia 11. CAD with h/o MD and PCI with stent placed 12. GERD 13. chronic LBP 15. h/o hypercapnic/hypoxic respiratory failure with narcotics 13. 16. h/o CVA 17. COPD with remote h/o tobacco abuse 18. h/o urine retention 19. 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 morbid obesity 21. JENNA O2 3L NC at hs (CPAP in tolerant) 22. chronic moderate PCL malnutrition 23. anemia CD renal Consults Consults Guero Landry MD Labs Labs Laboratory Tests Test 05/21/17 09:10 05/21/17 11:18 05/21/17 15:10 05/21/17 17:05 White Blood Count 11.5 x10^3/uL (4.0-11.0) Red Blood Count 4.88 x10^6/uL (3.50-5.40) Hemoglobin 13.9 g/dL (12.0-15.5) Hematocrit 42.5 % (36.0-47.0) Mean Corpuscular Volume 87 fL (79-100) Mean Corpuscular Hemoglobin 28 pg (25-35) Mean Corpuscular Hemoglobin Concent 33 g/dL (31-37) Red Cell Distribution Width 20.1 % (11.5-14.5) Platelet Count 195 x10^3/uL (140-400) Neutrophils (%) (Auto) 79 % (31-73) Lymphocytes (%) (Auto) 13 % (24-48) Monocytes (%) (Auto) 5 % (0-9) Eosinophils (%) (Auto) 2 % (0-3) Basophils (%) (Auto) 1 % (0-3) Neutrophils # (Auto) 9.1 x10^3uL (1.8-7.7) Lymphocytes # (Auto) 1.5 x10^3/uL (1.0-4.8) Monocytes # (Auto) 0.5 x10^3/uL (0.0-1.1) Eosinophils # (Auto) 0.2 x10^3/uL (0.0-0.7) Basophils # (Auto) 0.1 x10^3/uL (0.0-0.2) Platelet Estimate Adequate (ADEQUATE) Anisocytosis Present Sodium Level 140 mmol/L (136-145) Potassium Level 3.7 mmol/L (3.5-5.1) Chloride Level 102 mmol/L (98-107) Carbon Dioxide Level 29 mmol/L (21-32) Anion Gap 9 (6-14) Blood Urea Nitrogen 19 mg/dL (7-20) Creatinine 2.6 mg/dL (0.6-1.0) Estimated GFR (Cockcroft-Gault) 19.7 Glucose Level 242 mg/dL (70-99) Calcium Level 8.7 mg/dL (8.5-10.1) Total Bilirubin 0.4 mg/dL (0.2-1.0) Direct Bilirubin 0.1 mg/dL (0.0-0.2) Aspartate Amino Transf (AST/SGOT) 16 U/L (15-37) Alanine Aminotransferase (ALT/SGPT) 20 U/L (14-59) Alkaline Phosphatase 135 U/L (46-116) Troponin I Quantitative 0.023 ng/mL (0.000-0.055) 0.019 ng/mL (0.000-0.055) XR-Rgx-N-Type Natriuretic Peptide 1510 pg/mL (0-124) Total Protein 7.3 g/dL (6.4-8.2) Albumin 2.7 g/dL (3.4-5.0) Lipase 96 U/L (73-393) Glucose (Fingerstick) 247 mg/dL (70-99) Nasal Screen MRSA (PCR) Negative (Negative) Test 05/21/17 19:12 05/21/17 20:57 05/21/17 22:00 05/22/17 04:15 Glucose (Fingerstick) 144 mg/dL (70-99) 165 mg/dL (70-99) Troponin I Quantitative < 0.017 ng/mL (0.000-0.055) White Blood Count 8.8 x10^3/uL (4.0-11.0) Red Blood Count 4.66 x10^6/uL (3.50-5.40) Hemoglobin 13.2 g/dL (12.0-15.5) Hematocrit 40.5 % (36.0-47.0) Mean Corpuscular Volume 87 fL (79-100) Mean Corpuscular Hemoglobin 28 pg (25-35) Mean Corpuscular Hemoglobin Concent 33 g/dL (31-37) Red Cell Distribution Width 20.0 % (11.5-14.5) Platelet Count 186 x10^3/uL (140-400) Neutrophils (%) (Auto) 76 % (31-73) Lymphocytes (%) (Auto) 16 % (24-48) Monocytes (%) (Auto) 5 % (0-9) Eosinophils (%) (Auto) 2 % (0-3) Basophils (%) (Auto) 1 % (0-3) Neutrophils # (Auto) 6.6 x10^3uL (1.8-7.7) Lymphocytes # (Auto) 1.4 x10^3/uL (1.0-4.8) Monocytes # (Auto) 0.4 x10^3/uL (0.0-1.1) Eosinophils # (Auto) 0.2 x10^3/uL (0.0-0.7) Basophils # (Auto) 0.1 x10^3/uL (0.0-0.2) Sodium Level 141 mmol/L (136-145) Potassium Level 3.8 mmol/L (3.5-5.1) Chloride Level 102 mmol/L (98-107) Carbon Dioxide Level 27 mmol/L (21-32) Anion Gap 12 (6-14) Blood Urea Nitrogen 9 mg/dL (7-20) Creatinine 1.8 mg/dL (0.6-1.0) Estimated GFR (Cockcroft-Gault) 30.2 Glucose Level 133 mg/dL (70-99) Calcium Level 8.3 mg/dL (8.5-10.1) Magnesium Level 1.9 mg/dL (1.8-2.4) Test 05/22/17 05:17 Glucose (Fingerstick) 191 mg/dL (70-99) Medications Medications Medications reviewed and reconciled for discharge. Brief hospital course Brief hospital course This 46 year old female who presented with chest pain was admitted. The following is a summary of her treatment; chest pain MS neuropathy from DM cardiology consult EKG new RBBB otherwise no change c/w previous EKG CC February 2017 patent LAD stent, negative troponin 0.023 no further work up hypoxia with speaking, chronic RF with O2 reported sats in 80s with speaking h/o PE on chronic eliquis and has IVC filter check dopplers LE 05/21 neg DVT pulmonary consulted nebulizer treatments O2 to maintain sat >90% VQ scan 05/21 neg improved MS burning pain L ant chest chronic issue ?neuropathic as pain is burning pain? begin gabapentin 200mg at hs-re eval. Will add voltaren gel topical for MS pain. slight improve ESRD HD inpatient Dr. Toussaint consulted DM II FSBS/ssi Home Lantus 60units bid-change to Levemir 30 units bid Home Novolog 45u TID AC-change to 15unit TID ac SSI low intensity No ADA diet, does not follow at home BS 133-191 05/22 home with home dose insulins CHF not acute daily wt intake output coreg changed to metoprolol ESRD consult nephrology in patient HD Nausea zofran prn continue reglan DVT/GI prophylaxis eliquis PPI For more details regarding the past history, family history, social history, surgical history and other details, please refer to History and Physical. She will be discharged home. Will need PA for voltaren gel, complete at appt. Refused HHN last time reordered. Does not need PT OT. DC home to f/u in office in 3-5 days. Subjective MS burning pain slightly improved. Objective alert, no distress Vitals Vital Signs Date Time Temp Pulse Resp B/P (MAP) Pulse Ox O2 Delivery O2 Flow Rate FiO2 05/22/17 07:00 97.9 75 22 87/52 (64) 93 Nasal Cannula 2.0 97.9 Physical Exam General appearance - alert, chronically appearing, and in mild distress anxious Mental Status - alert, oriented to person, place, and time, anxious Head - normal Chest - clear to auscultation, no wheezes, rales or rhonchi, symmetric air entry Heart - S1 and S2 normal tachy Abdomen - soft, nontender, nondistended, obese, BS + Neurological - no acute focal neurological deficit noted Musculoskeletal - MS tenderness L anterior chest Extremities - + edema with chronic venous stasis changes. Skin - warm and dry Medications Medications reviewed. Allergy Allergies Coded Allergies Type Severity Reaction Last Updated Verified Penicillins Allergy Severe causes swelling of throat 01/15/17 Yes Sulfa (Sulfonamide Antibiotics) Allergy Severe causes throat to swell 01/15/17 Yes amoxicillin Allergy Severe causes swelling of throat 01/15/17 Yes clarithromycin Allergy Severe causes throat to swell 01/15/17 Yes codeine Allergy Severe "closed up my throat and itching" 01/31/17 Yes hydrocodone Allergy Severe "closes up my throat and itching" 01/31/17 Yes silver sulfadiazine Allergy Severe Rash 01/15/17 Yes oxycodone Allergy Intermediate 01/15/17 Yes tramadol Allergy Intermediate Nausea and Vomiting 01/15/17 Yes I S O L A T I O N *CONTACT* Allergy Unknown 01/15/17 Yes Follow up in 3-5 days. Disposition: Home Comments Discharge Management - 35 minutes. For other details please refer to discharge instructions CHELE SINGH MD 05/22/17 1050: IM DISCHARGE & PROGRESS NOTES Brief hospital course Brief hospital course Doing well. Noncompliant with medications. The patient was seen and examined by me. Chart reviewed and plan of care formulated. Discussed with, reviewed and agree with TECHNICIAN TERMINAL AND REPEATER's notes, plan of care and orders with modifications as necessary. Discharge Management - 35 minutes. YVONNE LAYNE APRN May 22, 2017 10:14 CHELE SINGH MD May 22, 2017 10:50
--- NOTE | 2017-05-22 10:16 | DISCH ---
DISCHARGE INSTRUCTIONS Condition on Discharge Condition on Discharge: Stable Activity After Discharge Activity Instructions for Disc: Activity as tolerated Diet after Discharge Diet after Discharge: Cardiac (no concentrated sweets) Checks after Discharge Checks after discharge: Check blood sugar, ac/hs Contacting the DRNadya after DC Call your doctor for: Concerns you may have Follow-Up Follow up with: Dr. Johnson or Jony in 3-5 days Treatment/Equipment after DC Discharge Respiratory Equipmen: Oxygen (2L NC at hs and as need through the day ), Nebulizer (qid) YVONNE LAYNE APRN May 22, 2017 10:16
[2017-05-22] MEDS ORDERED: GABA-585 PO (10:20)
[2017-05-22] MEDS ORDERED: METO25TA4 PO (10:20)
[2017-05-22] MEDS ORDERED: DICL100G18 TP (10:20)
[2017-05-22] MEDS ORDERED: AMMO226L TP (10:49)
[2017-05-22 11:00] VITALS: BP 102/69
--- NOTE | 2017-05-22 12:07 | PDOC ---
Renal-Progress Notes Subjective Notes Notes NONE History of Present Illness Hx of present illness NO CHANGE Vitals Vitals Vital Signs Date Time Temp Pulse Resp B/P (MAP) Pulse Ox O2 Delivery O2 Flow Rate FiO2 05/22/17 11:00 98.2 99 22 102/69 (80) Nasal Cannula 2.0 98.2 05/22/17 07:00 93 Weight Weight [ ] I.O. Intake and Output Intake and Output 05/22/17 07:00 Intake Total 1470 ml Balance 1470 ml Intake Oral 1470 ml Labs Labs Laboratory Tests Test 05/21/17 15:10 05/21/17 17:05 05/21/17 19:12 05/21/17 20:57 Troponin I Quantitative 0.019 ng/mL (0.000-0.055) Nasal Screen MRSA (PCR) Negative (Negative) Glucose (Fingerstick) 144 mg/dL (70-99) 165 mg/dL (70-99) Test 05/21/17 22:00 05/22/17 04:15 05/22/17 05:17 05/22/17 07:45 Troponin I Quantitative < 0.017 ng/mL (0.000-0.055) White Blood Count 8.8 x10^3/uL (4.0-11.0) Red Blood Count 4.66 x10^6/uL (3.50-5.40) Hemoglobin 13.2 g/dL (12.0-15.5) Hematocrit 40.5 % (36.0-47.0) Mean Corpuscular Volume 87 fL (79-100) Mean Corpuscular Hemoglobin 28 pg (25-35) Mean Corpuscular Hemoglobin Concent 33 g/dL (31-37) Red Cell Distribution Width 20.0 % (11.5-14.5) Platelet Count 186 x10^3/uL (140-400) Neutrophils (%) (Auto) 76 % (31-73) Lymphocytes (%) (Auto) 16 % (24-48) Monocytes (%) (Auto) 5 % (0-9) Eosinophils (%) (Auto) 2 % (0-3) Basophils (%) (Auto) 1 % (0-3) Neutrophils # (Auto) 6.6 x10^3uL (1.8-7.7) Lymphocytes # (Auto) 1.4 x10^3/uL (1.0-4.8) Monocytes # (Auto) 0.4 x10^3/uL (0.0-1.1) Eosinophils # (Auto) 0.2 x10^3/uL (0.0-0.7) Basophils # (Auto) 0.1 x10^3/uL (0.0-0.2) Sodium Level 141 mmol/L (136-145) Potassium Level 3.8 mmol/L (3.5-5.1) Chloride Level 102 mmol/L (98-107) Carbon Dioxide Level 27 mmol/L (21-32) Anion Gap 12 (6-14) Blood Urea Nitrogen 9 mg/dL (7-20) Creatinine 1.8 mg/dL (0.6-1.0) Estimated GFR (Cockcroft-Gault) 30.2 Glucose Level 133 mg/dL (70-99) Calcium Level 8.3 mg/dL (8.5-10.1) Magnesium Level 1.9 mg/dL (1.8-2.4) Glucose (Fingerstick) 191 mg/dL (70-99) 216 mg/dL (70-99) Test 05/22/17 11:27 Glucose (Fingerstick) 179 mg/dL (70-99) Review of Systems Constitutional: yes: no symptom reported Physical Exam General Appearance: no apparent distress Respiratory: bilateral CTA Heart: S1S2, RRR Abdomen: soft, bowel sounds present Neurology: alert Assessment Assessment IMP ESRD DM II HTN ANEMIA CHEST PAIN-NO CARDIAC PLAN D/C PLANS NOTED PT WILL HAVE OP HD ON WEDNESDAY SARA RUIZ MD May 22, 2017 12:07
[2017-05-22] MEDS ORDERED: DICLOFENAC SODIUM 1% TOPICAL GEL 100GM TUBE. TP SCH (14:00)
[2017-05-24] MEDS ORDERED: fentaNYL 50MCG/HR PATCH 1 PATCH PATCH.TD72 TD SCH (09:00)
== END 2017-05-22 14:00 | disposition home or self-care (01) ==
LOC: ER 09:01 → 6 SOUTH 09:36
PROVIDERS: ADMIT Internal Medicine; ATTEND Internal Medicine
DX: R07.89 Other chest pain (principal); J96.21 Acute and chronic respiratory failure with hypoxia; E11.40 Type 2 diabetes mellitus with diabetic neuropathy, unspecified; E11.22 Type 2 diabetes mellitus with diabetic chronic kidney disease; I13.2 Hypertensive heart and chronic kidney disease with heart failure and with stage 5 chronic kidney disease, or end stage renal disease; I50.22 Chronic systolic (congestive) heart failure; N18.6 End stage renal disease; E78.5 Hyperlipidemia, unspecified; I25.10 Atherosclerotic heart disease of native coronary artery without angina pectoris; I25.2 Old myocardial infarction; K21.9 Gastro-esophageal reflux disease without esophagitis; J44.9 Chronic obstructive pulmonary disease, unspecified; G89.29 Other chronic pain; M10.9 Gout, unspecified; F32.9 Major depressive disorder, single episode, unspecified; E66.01 Morbid (severe) obesity due to excess calories; G47.33 Obstructive sleep apnea (adult) (pediatric); E46 Unspecified protein-calorie malnutrition; I45.10 Unspecified right bundle-branch block; I87.8 Other specified disorders of veins; E78.00 Pure hypercholesterolemia, unspecified; D72.829 Elevated white blood cell count, unspecified; K76.0 Fatty (change of) liver, not elsewhere classified; F41.9 Anxiety disorder, unspecified; D64.9 Anemia, unspecified; E11.69 Type 2 diabetes mellitus with other specified complication; M86.9 Osteomyelitis, unspecified; R60.0 Localized edema; I42.9 Cardiomyopathy, unspecified; I73.9 Peripheral vascular disease, unspecified; N25.81 Secondary hyperparathyroidism of renal origin; Z86.718 Personal history of other venous thrombosis and embolism; Z86.711 Personal history of pulmonary embolism; Z99.2 Dependence on renal dialysis; Z91.14 Patient's other noncompliance with medication regimen; Z86.73 Personal history of transient ischemic attack (TIA), and cerebral infarction without residual deficits; Z95.5 Presence of coronary angioplasty implant and graft; Z91.19 Patient's noncompliance with other medical treatment and regimen; Z82.49 Family history of ischemic heart disease and other diseases of the circulatory system; Z83.3 Family history of diabetes mellitus
CPT/HCPCS: 36415; 71010; 78582; 80048; 80076; 82962; 83690; 83735; 83880; 84484; 85007; 85025; 85027; 87641; 93005; 93970; 94640; 96372; 96374; 96375; 97162; 99285; A9540; A9558; G0378; J1815; J2270; J2405; J7620; J8597; G0379

== ENCOUNTER → 2017-06-23 | Outpatient (CLI) | payer MEDICARE, MEDICAID ==
[2017-06-23] VITALS (8 sets, daily range): BP systolic 94–154; BP diastolic 64–88
[~2017-06-23] VITALS: Ht 171.4 cm; Wt 123.8 kg
[~2017-06-23] MED LIST changes: +AMMO226L TP; +DICL100G18 TP; +GABA-585 PO; +LIDOCAINE 1%/EPI 1:100,000 20 ML VIAL. INJ ONE; +LIDOCAINE 1%/EPI 1:100,000 20 ML VIAL. ONE; +METO25TA4 PO; +MIDAZOLAM HCL/PF 2 MG/2 ML VIAL. ONE; +fentaNYL PF VIAL 100 MCG/2 ML VIAL ONE
[2017-06-23 07:38] LABS: BASO # 0.1 x10^3/uL (0.0-0.2); BASO % 1 % (0-3); EOS % 3 % (0-3); HEMATOCRIT 37.3 % (36.0-47.0); HEMOGLOBIN 12.1 g/dL (12.0-15.5); LYMPH # 1.2 x10^3/uL (1.0-4.8); LYMPH % 21 % (24-48); MEAN CORPUSCULAR HEMOGLOBIN 29 pg (25-35); MEAN CORPUSCULAR HGB CONC 32 g/dL (31-37); MEAN CORPUSCULAR VOLUME 89 fL (79-100); MONO % 6 % (0-9); NEUT % 69 % (31-73); PLATELET COUNT 144 x10^3/uL (140-400); RED BLOOD COUNT 4.21 x10^6/uL (3.50-5.40); RED CELL DISTRIBUTION WIDTH 19.1 % (11.5-14.5); WHITE BLOOD COUNT 5.8 x10^3/uL (4.0-11.0)
[2017-06-23 07:47] LABS: INR 1.2 (0.8-1.1); PROTHROMBIN TIME PATIENT 14.7 SEC (11.7-14.0)
--- NOTE | 2017-06-23 10:30 | RAD ---
Indication post dialysis catheter removal. Cough. A single view of the chest was obtained and is compared to an examination just over one month earlier. Moderate cardiomegaly is unchanged. There are interstitial changes compatible with mild congestive heart failure. There is no consolidated pneumonia. Significant pleural fluid is not seen. There is no pneumothorax. IMPRESSION: Stable cardiomegaly. Probable mild congestive heart failure
--- NOTE | 2017-06-23 10:49 | RAD ---
Fluoroscopically guided removal of a right internal jugular tunnel dialysis catheter 06/23/2017 Indication: Patient no longer requires dialysis Discussion: The risks and benefits of the procedure were discussed the patient. Informed consent was obtained. A timeout procedure was performed. Fluoroscopic imaging reveals expected position of a right internal jugular tunnel dialysis catheter. The right neck and chest including the pre-existing catheter were prepped and draped using maximum sterile barrier technique. All elements of maximal sterile barrier technique including the use of a cap, mask, sterile gown, sterile gloves, large sterile sheet, appropriate hand hygiene, and 2% chlorhexidine for cutaneous antisepsis (or acceptable alternative antiseptic per current guidelines) were followed for this procedure. 1% lidocaine without epinephrine was administered for local anesthesia. Using minimal sharp and blunt dissection the subcutaneous cuff was freed and the dialysis catheter removed intact. Complete removal was confirmed with fluoroscopy. Manual pressure was held to achieve hemostasis. A sterile dressing was applied. No immediate complications were identified. Fluoroscopy time 0.1 minutes Dose area product 2 Gycm2 Impression: Successful removal of right internal jugular tunnel dialysis catheter
== END | disposition home or self-care (01) ==
LOC: INTRAD 07:01
PROVIDERS: ATTEND Internal Medicine Nephrology
DX: Z49.01 Encounter for fitting and adjustment of extracorporeal dialysis catheter (principal); I13.0 Hypertensive heart and chronic kidney disease with heart failure and stage 1 through stage 4 chronic kidney disease, or unspecified chronic kidney disease; E11.22 Type 2 diabetes mellitus with diabetic chronic kidney disease; N18.9 Chronic kidney disease, unspecified; I50.9 Heart failure, unspecified; I25.10 Atherosclerotic heart disease of native coronary artery without angina pectoris; E78.00 Pure hypercholesterolemia, unspecified; Z86.718 Personal history of other venous thrombosis and embolism; J44.9 Chronic obstructive pulmonary disease, unspecified; Z90.49 Acquired absence of other specified parts of digestive tract; Z99.2 Dependence on renal dialysis; Z86.39 Personal history of other endocrine, nutritional and metabolic disease; M06.9 Rheumatoid arthritis, unspecified; F17.200 Nicotine dependence, unspecified, uncomplicated; Z86.73 Personal history of transient ischemic attack (TIA), and cerebral infarction without residual deficits; Z88.6 Allergy status to analgesic agent; Z88.1 Allergy status to other antibiotic agents; Z88.0 Allergy status to penicillin; Z88.2 Allergy status to sulfonamides
CPT/HCPCS: 36415; 36589; 71010; 85025; 85610; J1644; J3490

== ENCOUNTER 2017-07-06 11:26 | Emergency (ER) | payer MEDICARE, MEDICAID ==
[~2017-07-06] VITALS: Ht 170.2 cm; Wt 118.8 kg
[~2017-07-06 11:26] MED LIST changes: -LIDOCAINE 1%/EPI 1:100,000 20 ML VIAL. INJ ONE; -LIDOCAINE 1%/EPI 1:100,000 20 ML VIAL. ONE; -MIDAZOLAM HCL/PF 2 MG/2 ML VIAL. ONE; -fentaNYL PF VIAL 100 MCG/2 ML VIAL ONE
[2017-07-06 11:28] VITALS: BP 113/73
[2017-07-06] MEDS ORDERED: DOXY50CA PO (12:04)
--- NOTE | 2017-07-06 12:04 | PHYS DOC ---
Past Medical History Past Medical History: COPD, CVA, Diabetes-Type II, DVT, GERD, High Cholesterol , Hypertension, CO, Renal Disease, Other Additional Past Medical Histor: PE, CHRONIC BACK PAIN, ENLARGED LIVER Past Surgical History: Angioplasty, Cholecystectomy, , Other Additional Past Surgical Histo: CARDIAC STENT, VENA CAVA FILTER, HERNIA SURG, 4TH & 5TH RIGHT TOE AMP Alcohol Use: None Drug Use: None Adult General Chief Complaint Chief Complaint: INSECT BITE HPI HPI Patient is a 46 year old female with a history of diabetes and hypertension presents to the ED complaining of insect bite to left knee X 1 day. Patients states she was bit by a spider but did not see it. States that redness has increased around where she thinks she was bit on her left knee. Describes as sharp. Rates pain as 4/10. Denies abdominal pain, nausea/vomiting, fever, shortness of breath, dizziness, weakness, chest pain or syncope. Family at bedside. Review of Systems Review of Systems Constitutional: Denies fever or chills [] Eyes: Denies change in visual acuity, redness, or eye pain [] HENT: Denies nasal congestion or sore throat [] Respiratory: Denies cough or shortness of breath [] Cardiovascular: No additional information not addressed in HPI [] GI: Denies abdominal pain, nausea, vomiting, bloody stools or diarrhea [] : Denies dysuria or hematuria [] Musculoskeletal: Denies back pain or joint pain [] Integument: Denies rash or skin lesions [] Neurologic: Denies headache, focal weakness or sensory changes [] Endocrine: Denies polyuria or polydipsia [] Allergies Allergies Allergies Coded Allergies Type Severity Reaction Last Updated Verified Penicillins Allergy Severe causes swelling of throat 01/15/17 Yes Sulfa (Sulfonamide Antibiotics) Allergy Severe causes throat to swell 01/15/17 Yes amoxicillin Allergy Severe causes swelling of throat 01/15/17 Yes clarithromycin Allergy Severe causes throat to swell 01/15/17 Yes codeine Allergy Severe "closed up my throat and itching" 01/31/17 Yes hydrocodone Allergy Severe "closes up my throat and itching" 01/31/17 Yes silver sulfadiazine Allergy Severe Rash 01/15/17 Yes oxycodone Allergy Intermediate 01/15/17 Yes tramadol Allergy Intermediate Nausea and Vomiting 01/15/17 Yes Physical Exam Physical Exam Constitutional: Well developed, well nourished, no acute distress, non-toxic appearance. [] HENT: Normocephalic, atraumatic, bilateral external ears normal, oropharynx moist, no oral exudates, nose normal. [] Eyes: PERRLA, EOMI, conjunctiva normal, no discharge. [] Neck: Normal range of motion, no tenderness, supple, no stridor. [] Cardiovascular:Heart rate regular rhythm, no murmur [] Lungs & Thorax: Bilateral breath sounds clear to auscultation [] Abdomen: Bowel sounds normal, soft, no tenderness, no masses, no pulsatile masses. [] Skin: Warm, dry, no rash. MILD ERYTHEMA THE SIZE OF QUARTER. NOT RAISED, NO NECROSIS, NO ABSCESS OR FLUCTUANCE. [] Back: No tenderness, no CVA tenderness. [] Extremities: No tenderness, no cyanosis, no clubbing, ROM intact, no edema. [] Neurologic: Alert and oriented X 3, normal motor function, normal sensory function, no focal deficits noted. [] Psychologic: Affect normal, judgement normal, mood normal. [] Current Patient Data Vital Signs Vital Signs Date Time Temp Pulse Resp B/P (MAP) Pulse Ox O2 Delivery O2 Flow Rate FiO2 07/06/17 12:09 96 07/06/17 11:28 97.6 16 95 Room Air 97.6 EKG EKG [] Radiology/Procedures Radiology/Procedures [] Course & Med Decision Making Course & Med Decision Making Pertinent Labs and Imaging studies reviewed. (See chart for details) []Will treat with doxycycline to prevent secondary infection. No signs of necrosis, systemic symptoms, abscess or fluctuance. Patient has taken doxycycline in the past without problem. Patients blood sugar this morning was 119. Discussed follow-up with PCP in one to 2 days. Provided contact information /education. Discussed reasons to return to the ED sooner. Patient understands and agrees with plan. Family at bedside. Dragon Disclaimer Primo Disclaimer This electronic medical record was generated, in whole or in part, using a voice recognition dictation system. Departure Departure Impression: Primary Impression: Cellulitis Disposition: HOME, SELF-CARE Condition: STABLE Referrals: CHELE SINGH MD (PCP) Patient Instructions: Cellulitis Scripts Doxycycline Hyclate (DOXYCYCLINE HYCLATE) 50 Mg Capsule 1 CAP PO BID, #20 CAP Prov: MILDENBERGER,ROB PA 07/06/17 ROB DOMINGO Jul 06, 2017 12:04
== END 2017-07-06 12:13 | disposition home or self-care (01) ==
LOC: ER 11:26
DX: L03.116 Cellulitis of left lower limb (principal); S80.262A Insect bite (nonvenomous), left knee, initial encounter; E78.00 Pure hypercholesterolemia, unspecified; J44.9 Chronic obstructive pulmonary disease, unspecified; K21.9 Gastro-esophageal reflux disease without esophagitis; Z95.5 Presence of coronary angioplasty implant and graft; G89.29 Other chronic pain; Z98.890 Other specified postprocedural states; Z86.73 Personal history of transient ischemic attack (TIA), and cerebral infarction without residual deficits; E11.22 Type 2 diabetes mellitus with diabetic chronic kidney disease; I12.9 Hypertensive chronic kidney disease with stage 1 through stage 4 chronic kidney disease, or unspecified chronic kidney disease; N18.9 Chronic kidney disease, unspecified; Z88.1 Allergy status to other antibiotic agents; Z88.0 Allergy status to penicillin; Z88.2 Allergy status to sulfonamides; Z88.5 Allergy status to narcotic agent; W57.XXXA Bitten or stung by nonvenomous insect and other nonvenomous arthropods, initial encounter; Y93.89 Activity, other specified; Y99.8 Other external cause status; Y92.89 Other specified places as the place of occurrence of the external cause
CPT/HCPCS: 99283

== ENCOUNTER 2017-07-15 11:28 | Inpatient (IN) | payer MEDICARE, MEDICAID ==
[~2017-07-15] VITALS: Ht 180.3 cm; Wt 116.7 kg
[~2017-07-15 11:28] MED LIST changes: +DOXY50CA PO
--- NOTE | 2017-07-15 12:02 | PHYS DOC ---
Past Medical History Past Medical History: COPD, CVA, Diabetes-Type II, DVT, GERD, High Cholesterol , Hypertension, HI, Renal Disease, Other Additional Past Medical Histor: PE, CHRONIC BACK PAIN, ENLARGED LIVER Past Surgical History: Angioplasty, Cholecystectomy, , Other Additional Past Surgical Histo: CARDIAC STENT, VENA CAVA FILTER, HERNIA SURG, 4TH & 5TH RIGHT TOE AMP Alcohol Use: None Drug Use: None Adult General Chief Complaint Chief Complaint: SHORTNESS OF BREATH HPI HPI Patient is a 46 year old female presenting to the emergency department for evaluation of cough chest burning sore throat sinus congestion generalized malaise fatigue and diarrhea. Patient says this has been going on for at least 10 days and says that she was seen in the emergency department for the same thing last Wednesday but the last emergency department visit I see is on July 06 for a bug bite and discharged on doxycycline. She says the cough is productive of yellowish sputum and that it hurts to swallow and she says she has had fevers and chills but none documented. She has not received an influenza vaccine. She says that she feels short of breath. She is nontoxic appearing in no obvious distress with normal vital signs. Review of Systems Review of Systems Constitutional: + fever, chills [] Eyes: Denies change in visual acuity, redness, or eye pain [] HENT: + nasal congestion, sore throat [] Respiratory: + cough, shortness of breath [] Cardiovascular: + CP GI: Denies abdominal pain, nausea, vomiting. + diarrhea [] : Denies dysuria or hematuria [] Musculoskeletal: Denies back pain or joint pain [] Integument: Denies rash or skin lesions [] Neurologic: Denies headache, focal weakness or sensory changes [] Current Medications Current Medications Current Medications Medications (Trade) Dose Ordered Sig/Ant Start Time Stop Time Status Last Admin Dose Admin Albuterol/ Ipratropium (Duoneb) 3 ml 1X ONCE 07/15/17 12:15 07/15/17 12:16 DC 07/15/17 12:25 3 ML Benzonatate (Tessalon Perle) 200 mg 1X ONCE 07/15/17 12:15 07/15/17 12:16 DC 07/15/17 12:44 200 MG Fentanyl Citrate (Fentanyl 2ml Vial) 50 mcg PRN Q2HR PRN 07/15/17 13:15 07/16/17 13:14 Ondansetron HCl (Zofran) 4 mg PRN Q8HRS PRN 07/15/17 13:15 07/16/17 13:14 Prednisone (Prednisone) 50 mg 1X ONCE 07/15/17 12:15 07/15/17 12:16 DC 07/15/17 12:44 50 MG Allergies Allergies Allergies Coded Allergies Type Severity Reaction Last Updated Verified Penicillins Allergy Severe causes swelling of throat 01/15/17 Yes Sulfa (Sulfonamide Antibiotics) Allergy Severe causes throat to swell 01/15/17 Yes amoxicillin Allergy Severe causes swelling of throat 01/15/17 Yes clarithromycin Allergy Severe causes throat to swell 01/15/17 Yes codeine Allergy Severe "closed up my throat and itching" 01/31/17 Yes hydrocodone Allergy Severe "closes up my throat and itching" 01/31/17 Yes silver sulfadiazine Allergy Severe Rash 01/15/17 Yes oxycodone Allergy Intermediate 01/15/17 Yes tramadol Allergy Intermediate Nausea and Vomiting 01/15/17 Yes Physical Exam Physical Exam Constitutional: Well developed, well nourished, no acute distress, non-toxic appearance. [] HENT: Normocephalic, atraumatic, bilateral external ears normal, oropharynx moist, no oral exudates, nose normal. [] Eyes: PERRLA, EOMI, conjunctiva normal, no discharge. [] Neck: Normal range of motion, no tenderness, supple, no stridor. [] Cardiovascular:Heart rate regular rhythm, no murmur [] Lungs & Thorax: Bilateral breath sounds diminished with exp wheezing Abdomen: Bowel sounds normal, soft, no tenderness, no masses, no pulsatile masses. [] Skin: Warm, dry, no erythema, no rash. [] Back: No tenderness, no CVA tenderness. [] Extremities: No tenderness, no cyanosis, no clubbing, ROM intact, no edema. [] Neurologic: Alert and oriented X 3, normal motor function, normal sensory function, no focal deficits noted. [] Current Patient Data Vital Signs Vital Signs Date Time Temp Pulse Resp B/P (MAP) Pulse Ox O2 Delivery O2 Flow Rate FiO2 07/15/17 12:43 20 92 Room Air 07/15/17 11:47 98.3 81 155/81 (105) 98.3 Lab Values Laboratory Tests Test 07/15/17 12:21 White Blood Count 7.6 x10^3/uL (4.0-11.0) Red Blood Count 5.24 x10^6/uL (3.50-5.40) Hemoglobin 15.1 g/dL (12.0-15.5) Hematocrit 46.1 % (36.0-47.0) Mean Corpuscular Volume 88 fL (79-100) Mean Corpuscular Hemoglobin 29 pg (25-35) Mean Corpuscular Hemoglobin Concent 33 g/dL (31-37) Red Cell Distribution Width 18.7 % (11.5-14.5) H Platelet Count 173 x10^3/uL (140-400) Neutrophils (%) (Auto) 74 % (31-73) H Lymphocytes (%) (Auto) 19 % (24-48) L Monocytes (%) (Auto) 5 % (0-9) Eosinophils (%) (Auto) 2 % (0-3) Basophils (%) (Auto) 0 % (0-3) Neutrophils # (Auto) 5.6 x10^3uL (1.8-7.7) Lymphocytes # (Auto) 1.5 x10^3/uL (1.0-4.8) Monocytes # (Auto) 0.4 x10^3/uL (0.0-1.1) Eosinophils # (Auto) 0.1 x10^3/uL (0.0-0.7) Basophils # (Auto) 0.0 x10^3/uL (0.0-0.2) Prothrombin Time 14.4 SEC (11.7-14.0) H Prothrombin Time INR 1.2 (0.8-1.1) H PTT 26 SEC (24-38) Sodium Level 141 mmol/L (136-145) Potassium Level 4.5 mmol/L (3.5-5.1) Chloride Level 106 mmol/L (98-107) Carbon Dioxide Level 28 mmol/L (21-32) Anion Gap 7 (6-14) Blood Urea Nitrogen 34 mg/dL (7-20) H Creatinine 2.3 mg/dL (0.6-1.0) H Estimated GFR (Cockcroft-Gault) 22.7 BUN/Creatinine Ratio 15 (6-20) Glucose Level 225 mg/dL (70-99) H Calcium Level 8.9 mg/dL (8.5-10.1) Magnesium Level 2.2 mg/dL (1.8-2.4) Total Bilirubin 0.6 mg/dL (0.2-1.0) Aspartate Amino Transferase (AST) 13 U/L (15-37) L Alanine Aminotransferase (ALT) 20 U/L (14-59) Alkaline Phosphatase 130 U/L (46-116) H Troponin I Quantitative < 0.017 ng/mL (0.000-0.055) NW-Rda-P-Type Natriuretic Peptide 1863 pg/mL (0-124) H Total Protein 7.2 g/dL (6.4-8.2) Albumin 3.3 g/dL (3.4-5.0) L Albumin/Globulin Ratio 0.8 (1.0-1.7) L Influenza Type A Antigen Negative (NEGATIVE) Influenza Type B Antigen Negative (NEGATIVE) Laboratory Tests 07/15/17 12:21 Laboratory Tests 07/15/17 12:21 EKG EKG Sinus rhythm at 81 beats per minutes with leftward axis no obvious ST elevation or depression with normal T waves. Radiology/Procedures Radiology/Procedures Portable chest, 07/15/2017: History: Cough, shortness of breath Comparison is made to a study from 06/23/2017. The heart is mildly enlarged. The pulmonary vascularity is within normal limits. No pulmonary infiltrates are seen. There is no evidence of pleural fluid. IMPRESSION: 1. Mild cardiomegaly. 2. No acute abnormality is detected. DICTATED and SIGNED BY: EHSAN WHITE MD DATE: 07/15/17 5962 Course & Med Decision Making Course & Med Decision Making Patient with upper respiratory tract infection type symptoms. She has multiple comorbidities she will get chest x-ray EKG blood work have her symptoms treated and be evaluated. She doesn't appear toxic and her vital signs are normal so she may be able to be treated as an outpatient. Patient's O2 sats dropped to the 90% range after the breathing treatment and pain medicine and patient says that she is still feeling diffuse pain and shortness of breath. I spoke to Dr. Singh and he requested admission for observation stay. Dragon Disclaimer Dragon Disclaimer This electronic medical record was generated, in whole or in part, using a voice recognition dictation system. Departure Departure Impression: Primary Impression: COPD exacerbation Additional Impression: Chronic kidney disease, stage IV (severe) Disposition: ADMITTED INPATIENT Admitting Physician: Chele Singh Condition: STABLE Referrals: CHELE SINGH MD (PCP) Problem Qualifiers BRENDA BECKHAM DO Jul 15, 2017 12:02
[2017-07-15] MEDS ORDERED: predniSONE 10 MG TABLET PO ONE (12:15)
[2017-07-15] MEDS ORDERED: fentaNYL PF VIAL 100 MCG/2 ML VIAL IV ONE (12:15)
[2017-07-15] MEDS ORDERED: BENZONATATE 100 MG CAPSULE. PO ONE (12:15)
[2017-07-15] MEDS ORDERED: IPRATRPIUM/ALBUTEROL 0.5/2.5MG 3 ML NEBU. NEB ONE (12:15)
--- NOTE | 2017-07-15 12:27 | RAD ---
Portable chest, 07/15/2017: History: Cough, shortness of breath Comparison is made to a study from 06/23/2017. The heart is mildly enlarged. The pulmonary vascularity is within normal limits. No pulmonary infiltrates are seen. There is no evidence of pleural fluid. IMPRESSION: 1. Mild cardiomegaly. 2. No acute abnormality is detected.
[2017-07-15 12:36] LABS: BASO % 0 % (0-3); EOS % 2 % (0-3); HEMATOCRIT 46.1 % (36.0-47.0); HEMOGLOBIN 15.1 g/dL (12.0-15.5); LYMPH # 1.5 x10^3/uL (1.0-4.8); LYMPH % 19 % (24-48); MEAN CORPUSCULAR HEMOGLOBIN 29 pg (25-35); MEAN CORPUSCULAR HGB CONC 33 g/dL (31-37); MEAN CORPUSCULAR VOLUME 88 fL (79-100); MONO % 5 % (0-9); NEUT % 74 % (31-73); PLATELET COUNT 173 x10^3/uL (140-400); RED BLOOD COUNT 5.24 x10^6/uL (3.50-5.40); RED CELL DISTRIBUTION WIDTH 18.7 % (11.5-14.5); WHITE BLOOD COUNT 7.6 x10^3/uL (4.0-11.0)
--- NOTE | 2017-07-15 12:40 | EKG ---
[facility] [address] [place] [address] Test Date: 2017-07-15 Test Time: 11:48:48 Pat Name: ADRIEL GOOD Department: Room: Gender: F [employer]eral [employer] Assistant: : 1970 Requested By: BRENDA BECKHAM Order Number: [id number] Reading MD: Aden Albright Measurements Intervals [place] Rate: 81 P: -24 [place]: 220 QRS: -83 QRSD: 138 T: 21 QT: 408 QTc: 480 Interpretive Statements SINUS RHYTHM PROLONGED [place] INTERVAL ABNORMAL LEFT AXIS DEVIATION RIGHT BUNDLE BRANCH BLOCK QRS(T) CONTOUR ABNORMALITY CONSISTENT WITH INFEROLATERAL INFARCT PROBABLY OLD Electronically Signed On 08-04-2017 16:51:17 CDT by Aden Albright
[2017-07-15 12:46] LABS: CALCIUM 8.9 mg/dL (8.5-10.1); CREATININE 2.3 mg/dL (0.6-1.0); GFR 22.7; INR 1.2 (0.8-1.1); POTASSIUM 4.5 mmol/L (3.5-5.1); PROTHROMBIN TIME PATIENT 14.4 SEC (11.7-14.0)
[2017-07-15 12:52] LABS: ALBUMIN 3.3 g/dL (3.4-5.0); ALBUMIN/GLOBULIN RATIO 0.8 (1.0-1.7); MAGNESIUM 2.2 mg/dL (1.8-2.4); TOTAL BILIRUBIN 0.6 mg/dL (0.2-1.0); TOTAL PROTEIN 7.2 g/dL (6.4-8.2)
[2017-07-15 12:56] LABS: OBC FLU VALID
[2017-07-15] MEDS ORDERED: ONDANSETRON PF 4 MG/2 ML VIAL. IV PRN (13:15)
[2017-07-15] MEDS: fentaNYL PF VIAL 100 MCG/2 ML VIAL IV PRN ×4 (14:22→22:33)
[2017-07-15 15:02] VITALS: BP 114/73
[2017-07-15] MEDS ORDERED: INFLUENZA VAX SCREEN BY RX. MC ONE (18:30)
[2017-07-15] MEDS ORDERED: FLU VACC QS2017-18 (36MOS+)/PF 0.5 ML SYRINGE. VAX IM ONE (18:30)
[2017-07-15] MEDS ORDERED: INSU100I13 SQ (18:52)
[2017-07-15] MEDS ORDERED: INSU100I17 SQ (18:52)
[2017-07-15] MEDS ORDERED: ONDA4TAB10 SL (18:52)
[2017-07-15 19:00] VITALS: BP 102/66
[2017-07-15] MEDS ORDERED: ACETAMINOPHEN 325 MG TABLET. PO PRN (21:30)
[2017-07-15] MEDS ORDERED: ONDANSETRON ODT 4 MG TAB.RAPDIS. PO PRN (21:30)
[2017-07-15] MEDS: ATORVASTATIN CALCIUM 40 MG TABLET. PO SCH (21:59)
[2017-07-15] MEDS: INSULIN DETEMIR 300 UNITS/3 ML INSULN.PEN. SQ SCH (22:02)
[2017-07-15 23:00] VITALS: BP 111/67
[2017-07-16] VITALS (8 sets, daily range): BP systolic 76–118; BP diastolic 37–76
[2017-07-16] MEDS: fentaNYL PF VIAL 100 MCG/2 ML VIAL IV PRN ×3 (03:15→20:55)
[2017-07-16 04:42] LABS: BASO # 0.1 x10^3/uL (0.0-0.2); BASO % 1 % (0-3); EOS % 0 % (0-3); HEMATOCRIT 41.7 % (36.0-47.0); HEMOGLOBIN 13.4 g/dL (12.0-15.5); LYMPH # 1.2 x10^3/uL (1.0-4.8); LYMPH % 14 % (24-48); MEAN CORPUSCULAR HEMOGLOBIN 28 pg (25-35); MEAN CORPUSCULAR HGB CONC 32 g/dL (31-37); MEAN CORPUSCULAR VOLUME 88 fL (79-100); MONO % 5 % (0-9); NEUT % 81 % (31-73); PLATELET COUNT 158 x10^3/uL (140-400); RED BLOOD COUNT 4.75 x10^6/uL (3.50-5.40); RED CELL DISTRIBUTION WIDTH 17.9 % (11.5-14.5)
[2017-07-16 05:01] LABS: ALBUMIN 2.7 g/dL (3.4-5.0); ALBUMIN/GLOBULIN RATIO 0.7 (1.0-1.7); CALCIUM 8.4 mg/dL (8.5-10.1); CREATININE 2.2 mg/dL (0.6-1.0); GFR 23.9; POTASSIUM 4.6 mmol/L (3.5-5.1); TOTAL BILIRUBIN 0.4 mg/dL (0.2-1.0); TOTAL PROTEIN 6.6 g/dL (6.4-8.2)
[2017-07-16] MEDS: CARVEDILOL 6.25 MG TABLET. PO SCH ×2 (08:00→16:51)
[2017-07-16] MEDS: INSULIN ASPART 300 UNITS/3 ML INSULN.PEN SQ SCH ×3 (08:08→17:13)
[2017-07-16] MEDS: INSULIN DETEMIR 300 UNITS/3 ML INSULN.PEN. SQ SCH ×3 (09:00→21:01)
[2017-07-16] MEDS ORDERED: HYDROmorphone 4 MG TABLET PO PRN (09:15)
[2017-07-16] MEDS ORDERED: NITROGLYCERIN SUBLINGUAL 0.4 MG BOTTLE OF 25. SL PRN (09:30)
[2017-07-16] MEDS ORDERED: BENZONATATE 100 MG CAPSULE. PO PRN (09:30)
--- NOTE | 2017-07-16 09:33 | PDOC ---
Provider Note Provider Note Patient seen. see History and Physical. The patient was seen and examined by me. Chart reviewed and plan of care formulated. Discussed with, reviewed and agree with NEURO UROLOGIST's notes, plan of care and orders with modifications as necessary. For more details regarding further plans, please refer to the orders. CHELE SINGH MD Jul 16, 2017 09:33
--- NOTE | 2017-07-16 09:42 | PDOC1 ---
HISTORY AND PHYSICAL Chief Complaint Chief Complaint This 46 year old female has been admitted with a chief complaint of dyspnea. She reports generalized abdominal pain 2 weeks ago with diarrhea. The diarrhea has resolved. Upper respiratory symptom progression:.cough yellow sputum, sinus congestion/draining post throat, sore throat, pain and burning in lungs with cough. Chills and subjective fever present for 2 weeks. She was seen in the ED on 07/06/17 and treated for insect bite with Doxycycline 100mg bid 7 days. ED workup: negative leukocytosis, CXR clear, EKG SR, and expiratory wheezing. Nebulizer treatment x 1 and Prednisone 50mg po x 1. Dialysis for ESRD was recently stopped with Cr Cl improving to 30. Initally she was on 60mg Demedex in morning and 40mg early afternoon. She reports that she was up most of night urinating and changed her Demedex to 60mg daily two days ago. BUN/Cr in the ED was 34 Cr 2.3. Review of previous BUN/Cr during admission in June was 9/1.8 at discharge. She was given Levaquin 500mg IV in ED and admitted for further treatment. Problem List Problems Medical Problems: (1) Chronic kidney disease, stage IV (severe) Status: Acute Past Medical History Cardiovascular: CAD, CHF (EF 25% per CC February 2017), HTN, TN, Hyperlipidemia, Valve insufficiency (MR TR ), Other (PVD) Pulmonary: COPD, Pulmonary embolus (ELiquis), Other (h/o DVT RL:E recurrent with previous DVT/PE; Eliquis..JENNA intolerant to CPAP --O2 2-3 L NC, h/o hypercapnic respiratory failure with narcotics) CENTRAL NERVOUS SYSTEM: CVA, Periperal neuropathy GI: GERD Heme/Onc: Anemia NOS Hepatobiliary: Other (fatty liver) Psych: Anxiety, Depression Musculoskeletal: low back pain (chronic ), Osteoarthritis Renal/: Chronic renal insuff (CKD III recent hemodialysis for ESRD, reversed to CKD III and dialysis stopped ), Chronic renal failure Endocrine: Diabetes (type II neuropathychronic insulin, PVD h/o diabetic foot ulcer ), Hyperparathyroidism (secondary ) Past Surgical History Past Surgical History: Cholecystectomy, , Hernia Repair, Other (PCI coronary stent, IVC filter, Great toe amputation ray procedure ) Past Family History Family History: Diabetes, Heart Disease, Hypertension Past Social History PSH lives with brother, cares for son who has cognitive deficits. H/O smoking, neg ETOH or illicit drug use Review of Symptoms Review of Symptoms A 14 point ROS was completed with the following noted as positive: per HPI Other systems reviewed and negative. Medications Medications reviewed and reconciled. Allergy Allergies Coded Allergies Type Severity Reaction Last Updated Verified Penicillins Allergy Severe causes swelling of throat 01/15/17 Yes Sulfa (Sulfonamide Antibiotics) Allergy Severe causes throat to swell 01/15/17 Yes amoxicillin Allergy Severe causes swelling of throat 01/15/17 Yes clarithromycin Allergy Severe causes throat to swell 01/15/17 Yes codeine Allergy Severe "closed up my throat and itching" 01/31/17 Yes hydrocodone Allergy Severe "closes up my throat and itching" 01/31/17 Yes silver sulfadiazine Allergy Severe Rash 01/15/17 Yes oxycodone Allergy Intermediate 01/15/17 Yes tramadol Allergy Intermediate Nausea and Vomiting 01/15/17 Yes Physical Exam Physical Exam General appearance - alert, ill appearing, and in no distress Mental Status - alert, oriented to person, place, and time, affect appropriate to mood Head - normal Chest - clear to auscultation, no wheezes, rales or rhonchi, decreased bases Heart - S1 and S2 normal Abdomen - soft, nontender, nondistended, obese, BS + Neurological - no acute focal neurological deficit noted Musculoskeletal - no muscular tenderness noted Extremities - no pedal edema, chronic venous stasis changes Skin - warm and dry VTE Prophylaxis Ordered VTE Prophylaxis Devices: Yes VTE Pharmacological Prophylaxi: Yes Assessment Labs Laboratory Tests Test 07/15/17 12:21 07/15/17 16:40 07/15/17 21:17 07/16/17 04:22 White Blood Count 7.6 x10^3/uL (4.0-11.0) 9.0 x10^3/uL (4.0-11.0) Red Blood Count 5.24 x10^6/uL (3.50-5.40) 4.75 x10^6/uL (3.50-5.40) Hemoglobin 15.1 g/dL (12.0-15.5) 13.4 g/dL (12.0-15.5) Hematocrit 46.1 % (36.0-47.0) 41.7 % (36.0-47.0) Mean Corpuscular Volume 88 fL (79-100) 88 fL (79-100) Mean Corpuscular Hemoglobin 29 pg (25-35) 28 pg (25-35) Mean Corpuscular Hemoglobin Concent 33 g/dL (31-37) 32 g/dL (31-37) Red Cell Distribution Width 18.7 % (11.5-14.5) 17.9 % (11.5-14.5) Platelet Count 173 x10^3/uL (140-400) 158 x10^3/uL (140-400) Neutrophils (%) (Auto) 74 % (31-73) 81 % (31-73) Lymphocytes (%) (Auto) 19 % (24-48) 14 % (24-48) Monocytes (%) (Auto) 5 % (0-9) 5 % (0-9) Eosinophils (%) (Auto) 2 % (0-3) 0 % (0-3) Basophils (%) (Auto) 0 % (0-3) 1 % (0-3) Neutrophils # (Auto) 5.6 x10^3uL (1.8-7.7) 7.3 x10^3uL (1.8-7.7) Lymphocytes # (Auto) 1.5 x10^3/uL (1.0-4.8) 1.2 x10^3/uL (1.0-4.8) Monocytes # (Auto) 0.4 x10^3/uL (0.0-1.1) 0.4 x10^3/uL (0.0-1.1) Eosinophils # (Auto) 0.1 x10^3/uL (0.0-0.7) 0.0 x10^3/uL (0.0-0.7) Basophils # (Auto) 0.0 x10^3/uL (0.0-0.2) 0.1 x10^3/uL (0.0-0.2) Prothrombin Time 14.4 SEC (11.7-14.0) Prothromb Time International Ratio 1.2 (0.8-1.1) Activated Partial Thromboplast Time 26 SEC (24-38) Sodium Level 141 mmol/L (136-145) 134 mmol/L (136-145) Potassium Level 4.5 mmol/L (3.5-5.1) 4.6 mmol/L (3.5-5.1) Chloride Level 106 mmol/L (98-107) 103 mmol/L (98-107) Carbon Dioxide Level 28 mmol/L (21-32) 23 mmol/L (21-32) Anion Gap 7 (6-14) 8 (6-14) Blood Urea Nitrogen 34 mg/dL (7-20) 38 mg/dL (7-20) Creatinine 2.3 mg/dL (0.6-1.0) 2.2 mg/dL (0.6-1.0) Estimated GFR (Cockcroft-Gault) 22.7 23.9 BUN/Creatinine Ratio 15 (6-20) 17 (6-20) Glucose Level 225 mg/dL (70-99) 279 mg/dL (70-99) Calcium Level 8.9 mg/dL (8.5-10.1) 8.4 mg/dL (8.5-10.1) Magnesium Level 2.2 mg/dL (1.8-2.4) Total Bilirubin 0.6 mg/dL (0.2-1.0) 0.4 mg/dL (0.2-1.0) Aspartate Amino Transf (AST/SGOT) 13 U/L (15-37) 9 U/L (15-37) Alanine Aminotransferase (ALT/SGPT) 20 U/L (14-59) 15 U/L (14-59) Alkaline Phosphatase 130 U/L (46-116) 108 U/L (46-116) Troponin I Quantitative < 0.017 ng/mL (0.000-0.055) DI-Azu-B-Type Natriuretic Peptide 1863 pg/mL (0-124) Total Protein 7.2 g/dL (6.4-8.2) 6.6 g/dL (6.4-8.2) Albumin 3.3 g/dL (3.4-5.0) 2.7 g/dL (3.4-5.0) Albumin/Globulin Ratio 0.8 (1.0-1.7) 0.7 (1.0-1.7) Influenza Type A Antigen Negative (NEGATIVE) Influenza Type B Antigen Negative (NEGATIVE) Glucose (Fingerstick) 265 mg/dL (70-99) 407 mg/dL (70-99) Test 07/16/17 07:08 Glucose (Fingerstick) 195 mg/dL (70-99) Laboratory Tests Test 07/15/17 12:21 07/15/17 16:40 07/15/17 21:17 07/16/17 04:22 White Blood Count 7.6 x10^3/uL (4.0-11.0) 9.0 x10^3/uL (4.0-11.0) Red Blood Count 5.24 x10^6/uL (3.50-5.40) 4.75 x10^6/uL (3.50-5.40) Hemoglobin 15.1 g/dL (12.0-15.5) 13.4 g/dL (12.0-15.5) Hematocrit 46.1 % (36.0-47.0) 41.7 % (36.0-47.0) Mean Corpuscular Volume 88 fL (79-100) 88 fL (79-100) Mean Corpuscular Hemoglobin 29 pg (25-35) 28 pg (25-35) Mean Corpuscular Hemoglobin Concent 33 g/dL (31-37) 32 g/dL (31-37) Red Cell Distribution Width 18.7 % (11.5-14.5) 17.9 % (11.5-14.5) Platelet Count 173 x10^3/uL (140-400) 158 x10^3/uL (140-400) Neutrophils (%) (Auto) 74 % (31-73) 81 % (31-73) Lymphocytes (%) (Auto) 19 % (24-48) 14 % (24-48) Monocytes (%) (Auto) 5 % (0-9) 5 % (0-9) Eosinophils (%) (Auto) 2 % (0-3) 0 % (0-3) Basophils (%) (Auto) 0 % (0-3) 1 % (0-3) Neutrophils # (Auto) 5.6 x10^3uL (1.8-7.7) 7.3 x10^3uL (1.8-7.7) Lymphocytes # (Auto) 1.5 x10^3/uL (1.0-4.8) 1.2 x10^3/uL (1.0-4.8) Monocytes # (Auto) 0.4 x10^3/uL (0.0-1.1) 0.4 x10^3/uL (0.0-1.1) Eosinophils # (Auto) 0.1 x10^3/uL (0.0-0.7) 0.0 x10^3/uL (0.0-0.7) Basophils # (Auto) 0.0 x10^3/uL (0.0-0.2) 0.1 x10^3/uL (0.0-0.2) Prothrombin Time 14.4 SEC (11.7-14.0) Prothromb Time International Ratio 1.2 (0.8-1.1) Activated Partial Thromboplast Time 26 SEC (24-38) Sodium Level 141 mmol/L (136-145) 134 mmol/L (136-145) Potassium Level 4.5 mmol/L (3.5-5.1) 4.6 mmol/L (3.5-5.1) Chloride Level 106 mmol/L (98-107) 103 mmol/L (98-107) Carbon Dioxide Level 28 mmol/L (21-32) 23 mmol/L (21-32) Anion Gap 7 (6-14) 8 (6-14) Blood Urea Nitrogen 34 mg/dL (7-20) 38 mg/dL (7-20) Creatinine 2.3 mg/dL (0.6-1.0) 2.2 mg/dL (0.6-1.0) Estimated GFR (Cockcroft-Gault) 22.7 23.9 BUN/Creatinine Ratio 15 (6-20) 17 (6-20) Glucose Level 225 mg/dL (70-99) 279 mg/dL (70-99) Calcium Level 8.9 mg/dL (8.5-10.1) 8.4 mg/dL (8.5-10.1) Magnesium Level 2.2 mg/dL (1.8-2.4) Total Bilirubin 0.6 mg/dL (0.2-1.0) 0.4 mg/dL (0.2-1.0) Aspartate Amino Transf (AST/SGOT) 13 U/L (15-37) 9 U/L (15-37) Alanine Aminotransferase (ALT/SGPT) 20 U/L (14-59) 15 U/L (14-59) Alkaline Phosphatase 130 U/L (46-116) 108 U/L (46-116) Troponin I Quantitative < 0.017 ng/mL (0.000-0.055) OD-Nvm-J-Type Natriuretic Peptide 1863 pg/mL (0-124) Total Protein 7.2 g/dL (6.4-8.2) 6.6 g/dL (6.4-8.2) Albumin 3.3 g/dL (3.4-5.0) 2.7 g/dL (3.4-5.0) Albumin/Globulin Ratio 0.8 (1.0-1.7) 0.7 (1.0-1.7) Influenza Type A Antigen Negative (NEGATIVE) Influenza Type B Antigen Negative (NEGATIVE) Glucose (Fingerstick) 265 mg/dL (70-99) 407 mg/dL (70-99) Test 07/16/17 07:08 Glucose (Fingerstick) 195 mg/dL (70-99) Plan Plan IMPRESSION: 1. Viral bronchitis with secondary bacterial infection 2. ARF with CKD III 3. AE COPD 4. systolic CHF EF 25% per CC stable not acute 5. recent hemodialysis for ESRD 6. JENNA O2 3L NC at hs (CPAP in tolerant) 7. anemia CD renal 8. DVT RLE 12/11/16 on Eliquis with h/o PE, DVT RLE & IVC filter 9. DM II with neuropathy, PVD, chronic insulin use 10 anxiety/depression 11. HTN 12. hyperlipidemia 13. CAD with h/o TN and PCI with stent placed 14. GERD 15. chronic LBP 16. h/o hypercapnic/hypoxic respiratory failure with narcotics 13. 17. h/o CVA 18. COPD with remote h/o tobacco abuse 19. h/o urine retention 20. 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 morbid obesity 22. chronic moderate PCL malnutrition 23. Diarrhea resolved PLAN: AB/AECOPD - Levaquin IV, mucinex, nebulizer duoneb/budesonide, supplemental O2, Prednisone 50mg x 1 ED --inf AB negative --Flu shot given ARF - consult Renal for adjustment demedex. Cr Cl 40s DM II -FSBS SSI Home lantus 60u bid; Novolog 45 TID ac + ssi --dietary changes here so Lantus decreased to 45u bid and Novolog 22 unit TID + SSI - non compliant with diet in out patient setting CHF - not acute, monitor' DVT/GI prophylaxis - SCD/HUE PPI For more details regarding further plans, please refer to the orders. YVONNE LAYNE APRN Jul 16, 2017 09:42
[2017-07-16] MEDS ORDERED: AMMO385C5 TP (09:48)
[2017-07-16] MEDS ORDERED: TORS20TA PO (09:54)
[2017-07-16] MEDS ORDERED: MAGN400T22 PO (09:54)
[2017-07-16] MEDS ORDERED: OMEP20TA8 PO (09:54)
[2017-07-16] MEDS ORDERED: FAMO-63 PO (09:54)
[2017-07-16] MEDS ORDERED: MONT10TA9 PO (09:54)
[2017-07-16] MEDS ORDERED: NITR0.4T SL (09:54)
[2017-07-16] MEDS ORDERED: APIX5TAB PO (09:54)
[2017-07-16] MEDS ORDERED: ASCO-78 PO (09:54)
[2017-07-16] MEDS ORDERED: FENT1PAT89 TD (09:54)
[2017-07-16] MEDS ORDERED: PROAIR HFA8.5 GM INH (09:54)
[2017-07-16] MEDS ORDERED: APIXABAN 5 MG TABLET. PO SCH (10:00)
[2017-07-16] MEDS ORDERED: fentaNYL 12MCG/HR PATCH 1 PATCH PATCH.TD72 TD SCH (10:00)
[2017-07-16] MEDS: AMMONIUM LACTATE 12% TOPICAL LOTION 226GM BOTTLE. TP SCH ×2 (10:29→20:55)
[2017-07-16] MEDS: ASPIRIN 325 MG TABLET PO SCH (10:29)
[2017-07-16] MEDS: PANTOPRAZOLE 40 MG TABLET.DR. PO SCH (10:30)
--- NOTE | 2017-07-16 11:20 | PDOC2 ---
CONSULT Date of Consult Date of Consult DATE: 07/16/17 TIME: 11:16 Reason for Consult Reason for Consult: CKD Referring Physician Referring Physician: FRANCISCO Identification/Chief Complaint Chief Complaint SOB Problems: Source Source: Chart review, Patient History of Present Illness Reason for Visit: THIS IS A 46 YR OLD WITH SOB AND A DX OF AECOPD. SHE HAS COUGHING AND A DX OF BRONCHITIS WELL. RENAL CONSULT FOR CR OF 2.4. SHE HAS STAGE 4 CKD. HX NOTABLE FOR KENDAL NEEDING HX EARLIER THIS YEAR FOR COUPLE MONTHS. IT WAS STARTED DUE TO POOR CLEARANCE BUT MOSTLY DUE TO FLUID RETENTION AND LE WOUNDS THAT WERE REFRACTORY TO DIURETICS. HX OF CKD DUE TO DM II AND HTN Past Medical History Cardiovascular: CAD, CHF (EF 25% per CC February 2017), HTN, GA, Hyperlipidemia, Valve insufficiency (MR TR ), Other (PVD) Pulmonary: COPD, Pulmonary embolus (ELiquis), Other (h/o DVT RL:E recurrent with previous DVT/PE; Eliquis..JENNA intolerant to CPAP --O2 2-3 L NC, h/o hypercapnic respiratory failure with narcotics) CENTRAL NERVOUS SYSTEM: CVA, Periperal neuropathy GI: GERD Heme/Onc: Anemia NOS Hepatobiliary: Other (fatty liver) Psych: Anxiety, Depression Musculoskeletal: low back pain (chronic ), Osteoarthritis Renal/: Chronic renal insuff (CKD III recent hemodialysis for ESRD, reversed to CKD III and dialysis stopped ), Chronic renal failure Endocrine: Diabetes (type II neuropathychronic insulin, PVD h/o diabetic foot ulcer ), Hyperparathyroidism (secondary ) Past Surgical History Past Surgical History: Cholecystectomy, , Hernia Repair, Other (PCI coronary stent, IVC filter, Great toe amputation ray procedure ) Family History Family History: Diabetes, Heart Disease, Hypertension Social History ALCOHOL: none Drugs: None Lives: with Family Current Problem List Problem List Problems Medical Problems: (1) Chronic kidney disease, stage IV (severe) Status: Acute Current Medications Current Medications Current Medications Albuterol/ Ipratropium (Duoneb) 3 ml 1X ONCE NEB Last administered on 12:25; Start 07/15/17 at 12:15; Stop 07/15/17 at 12:16; Status DC Prednisone (Prednisone) 50 mg 1X ONCE PO Last administered on 07/15/17 12:44 ; Start 07/15/17 at 12:15; Stop 07/15/17 at 12:16; Status DC Benzonatate (Tessalon Perle) 200 mg 1X ONCE PO Last administered on 07/15/17 12:44; Start 07/15/17 at 12:15; Stop 07/15/17 at 12:16; Status DC Fentanyl Citrate (Fentanyl 2ml Vial) 100 mcg 1X ONCE IV Last administered on 07/15/17 12:43; Start 07/15/17 at 12:15; Stop 07/16/17 at 09:13; Status DC Ondansetron HCl (Zofran) 4 mg PRN Q8HRS PRN IV NAUSEA/VOMITING; Start 07/15/17 at 13:15; Stop 07/16/17 at 09:13; Status DC Fentanyl Citrate (Fentanyl 2ml Vial) 50 mcg PRN Q2HR PRN IV PAIN Last administered on 07/16/17 06:07; Start 07/15/17 at 13:15; Stop 07/16/17 at 09:13 ; Status DC Ceftriaxone Sodium 50 ml @ 100 mls/hr 1X ONCE IV ; Start 07/15/17 at 14:00; Stop 07/15/17 at 14:04; Status DC Levofloxacin/ Dextrose 100 ml @ 100 mls/hr 1X ONCE IV Last administered on 14:12; Start 07/15/17 at 14:15; Stop 07/15/17 at 15:14; Status DC Info (Do NOT chart on this placeholder) 0.5 each 1X ONCE MC ; Start 07/15/17 at 18:30; Stop 07/15/17 at 18:31; Status UNV Influenza Virus Vaccine Quadrival (Fluarix Quad [id number] Syringe) 0.5 ml ONCE ONCE VAX IM ; Start 07/15/17 at 18:30; Stop 07/15/17 at 18:31; Status DC Acetaminophen (Tylenol) 650 mg PRN Q6HRS PRN PO MILD PAIN / TEMP; Start at 21:30 Aspirin (Ecotrin) 81 mg QODAY PO ; Start 07/17/17 at 09:00; Stop 07/17/17 at 09: 00; Status DC Atorvastatin Calcium (Lipitor) 40 mg HS PO Last administered on 07/15/17 21:59 ; Start 07/15/17 at 22:00 Carvedilol (Coreg) 6.25 mg BIDWMEALS PO ; Start 07/16/17 at 08:00 Insulin Aspart (NovoLOG) 22 units TIDAC SQ Last administered on 07/16/17 08:08 ; Start 07/16/17 at 07:30 Ondansetron HCl (Zofran Odt) 4 mg PRN Q8HRS PRN PO NAUSEA/VOMITING Last administered on 07/16/17 09:30; Start 07/15/17 at 21:30 Insulin Detemir (Levemir) 30 units BID SQ Last administered on 07/15/17 22:02 ; Start 07/15/17 at 22:00; Stop 07/16/17 at 09:23; Status DC Ceftriaxone Sodium 1 gm/ Sodium Chloride 50 ml @ 100 mls/hr Q24H IV ; Start at 09:15; Stop 07/16/17 at 09:23; Status DC Fentanyl (Duragesic 50mcg/ Hr Patch) 1 patch Q3DAYS TD ; Start 07/19/17 at 09:00 ; Stop 07/19/17 at 09:00; Status DC Hydromorphone HCl (Dilaudid) 4 mg PRN Q6HRS PRN PO PAIN Last administered on 09:31; Start 07/16/17 at 09:15 Insulin Detemir (Levemir) 40 units BID SQ Last administered on 07/16/17 09:36 ; Start 07/16/17 at 10:00 Fentanyl (Duragesic 12mcg/ Hr Patch) 1 patch Q3DAYS TD Last administered on 10:29; Start 07/16/17 at 10:00 Lactic Acid (Lac-Hydrin) 1 stephanie BID TP Last administered on 07/16/17 10:29; Start 07/16/17 at 10:00 Apixaban (Eliquis) 5 mg BID PO ; Start 07/16/17 at 10:00; Stop 07/16/17 at 10:00 ; Status DC Pantoprazole Sodium (Protonix) 40 mg DAILYAC PO Last administered on 07/16/17 10:30; Start 07/16/17 at 10:00 Nitroglycerin (Nitrostat) 0.4 mg PRN Q5MIN PRN SL CHEST PAIN; Start 07/16/17 at 09:30 Levofloxacin/ Dextrose 100 ml @ 100 mls/hr Q24H IV ; Start 07/16/17 at 14:00 Montelukast Sodium (Singulair) 10 mg QHS PO ; Start 07/16/17 at 21:00 Benzonatate (Tessalon Perle) 100 mg PRN TID PRN PO COUGH; Start 07/16/17 at 09: 30 Guaifenesin (Mucinex) 600 mg BID PO Last administered on 07/16/17 10:30; Start 07/16/17 at 10:00 Albuterol/ Ipratropium (Duoneb) 3 ml RTQID NEB ; Start 07/16/17 at 12:00 Aspirin (Leighton Aspirin) 325 mg DAILYWBKFT PO Last administered on 07/16/17 10: 29; Start 07/16/17 at 10:30 Active Scripts Active Tylenol (Acetaminophen) 325 Mg Tablet 650 Mg PO PRN Q6HRS PRN FENTANYL 50mcg/hr (Fentanyl) 1 Each Patch.td72 1 Patch TD Q3DAYS Reported Proair Hfa Inhaler (Albuterol Sulfate) 8.5 Gm Hfa.aer.ad 1 Puff INH PRN Q6HRS PRN Vitamin C (Ascorbate Calcium) 500 Mg Tablet 500 Mg PO DAILY Montelukast Sodium Tablet (Montelukast Sodium) 10 Mg Tablet 10 Mg PO HS Omeprazole 20 Mg Tablet.dr 40 Mg PO DAILY Mag-Oxide (Magnesium Oxide) 400 Mg Tablet 1 Tab PO BID Nitrostat (Nitroglycerin) 0.4 Mg Tab.subl 0.4 Mg SL PRN Q5MIN PRN Demadex (Torsemide) 20 Mg Tablet 60 Mg PO DAILY Pepcid (Famotidine) 20 Mg Tablet 20 Mg PO HS Eliquis (Apixaban) 5 Mg Tablet 5 Mg PO BID DURAGESIC 12mcg/hr (Fentanyl) 1 Each Patch.td72 1 Patch TD Q72H Ammonium Lactate 385 Gm Cream..g. 385 Gm TP BID Zofran Odt (Ondansetron) 4 Mg Tab.rapdis 1 Tab SL PRN Q8HRS PRN Lantus Solostar (Insulin Glargine,Hum.rec.anlog) 100 Unit/1 Ml Insuln.pen 60 Unit SQ BID Novolog Flexpen (Insulin Aspart) 100 Unit/1 Ml Insuln.pen 45 Unit SQ TIDAC Coreg (Carvedilol) 6.25 Mg Tablet 1 Tab PO BID Aspir 81 (Aspirin) 81 Mg Tablet.dr 81 Mg PO QODAY Atorvastatin Calcium 40 Mg Tablet 40 Mg PO HS Allergies Allergies: Coded Allergies: Penicillins (Verified Allergy, Severe, causes swelling of throat, 01/15/17) Sulfa (Sulfonamide Antibiotics) (Verified Allergy, Severe, causes throat to swell, 01/15/17) amoxicillin (Verified Allergy, Severe, causes swelling of throat, 01/15/17) clarithromycin (Verified Allergy, Severe, causes throat to swell, 01/15/17) codeine (Verified Allergy, Severe, "closed up my throat and itching", 01/31) tolerates percocet, Dilaudid is home med hydrocodone (Verified Allergy, Severe, "closes up my throat and itching", 01/31/17) tolerates percocet, Dilaudid is home med silver sulfadiazine (Verified Allergy, Severe, Rash, 01/15/17) oxycodone (Verified Allergy, Intermediate, 01/15/17) tramadol (Verified Allergy, Intermediate, Nausea and Vomiting, 01/15/17) ROS General: YES: Fatigue, Malaise PSYCHOLOGICAL ROS: YES: Anxiety Eyes: Yes Decreased vision HEENT: YES: Heacaches Respiratory: YES: Cough, Shortness of breath Cardiovascular: yes Orthopnea, yes Edema Gastrointestinal: Yes Constipation Genitourinary: YES Other (NOCTURIA) Musculoskeletal: Yes Muscular Weakness Neurological: Yes Weakness Skin: Yes Dry Skin Physical Exam General: Alert, Oriented X3, Cooperative HEENT: Atraumatic, PERRLA Lungs: Other (DECREASED AT BASES) Heart: Regular rate, Normal S1, Normal S2 Abdomen: Normal bowel sounds, Soft, No tenderness Extremities: No clubbing, Other (2+ EDEMA) Skin: Other (SOME PRETIBIAL AREA ERYTHEMA/STASIS BILATERALLY) Neuro: Normal speech MUSCULOSKELETAL: No joint tenderness, No deformity Vitals VITALS Vital Signs Date Time Temp Pulse Resp B/P (MAP) Pulse Ox O2 Delivery O2 Flow Rate FiO2 07/16/17 10:29 Room Air 07/16/17 09:20 79 115/64 (81) 07/16/17 07:00 96.3 20 93 96.3 07/16/17 03:00 2.0 Labs Labs Laboratory Tests Test 07/15/17 12:21 07/15/17 16:40 07/15/17 21:17 07/16/17 04:22 White Blood Count 7.6 x10^3/uL (4.0-11.0) 9.0 x10^3/uL (4.0-11.0) Red Blood Count 5.24 x10^6/uL (3.50-5.40) 4.75 x10^6/uL (3.50-5.40) Hemoglobin 15.1 g/dL (12.0-15.5) 13.4 g/dL (12.0-15.5) Hematocrit 46.1 % (36.0-47.0) 41.7 % (36.0-47.0) Mean Corpuscular Volume 88 fL (79-100) 88 fL (79-100) Mean Corpuscular Hemoglobin 29 pg (25-35) 28 pg (25-35) Mean Corpuscular Hemoglobin Concent 33 g/dL (31-37) 32 g/dL (31-37) Red Cell Distribution Width 18.7 % (11.5-14.5) 17.9 % (11.5-14.5) Platelet Count 173 x10^3/uL (140-400) 158 x10^3/uL (140-400) Neutrophils (%) (Auto) 74 % (31-73) 81 % (31-73) Lymphocytes (%) (Auto) 19 % (24-48) 14 % (24-48) Monocytes (%) (Auto) 5 % (0-9) 5 % (0-9) Eosinophils (%) (Auto) 2 % (0-3) 0 % (0-3) Basophils (%) (Auto) 0 % (0-3) 1 % (0-3) Neutrophils # (Auto) 5.6 x10^3uL (1.8-7.7) 7.3 x10^3uL (1.8-7.7) Lymphocytes # (Auto) 1.5 x10^3/uL (1.0-4.8) 1.2 x10^3/uL (1.0-4.8) Monocytes # (Auto) 0.4 x10^3/uL (0.0-1.1) 0.4 x10^3/uL (0.0-1.1) Eosinophils # (Auto) 0.1 x10^3/uL (0.0-0.7) 0.0 x10^3/uL (0.0-0.7) Basophils # (Auto) 0.0 x10^3/uL (0.0-0.2) 0.1 x10^3/uL (0.0-0.2) Prothrombin Time 14.4 SEC (11.7-14.0) Prothromb Time International Ratio 1.2 (0.8-1.1) Activated Partial Thromboplast Time 26 SEC (24-38) Sodium Level 141 mmol/L (136-145) 134 mmol/L (136-145) Potassium Level 4.5 mmol/L (3.5-5.1) 4.6 mmol/L (3.5-5.1) Chloride Level 106 mmol/L (98-107) 103 mmol/L (98-107) Carbon Dioxide Level 28 mmol/L (21-32) 23 mmol/L (21-32) Anion Gap 7 (6-14) 8 (6-14) Blood Urea Nitrogen 34 mg/dL (7-20) 38 mg/dL (7-20) Creatinine 2.3 mg/dL (0.6-1.0) 2.2 mg/dL (0.6-1.0) Estimated GFR (Cockcroft-Gault) 22.7 23.9 BUN/Creatinine Ratio 15 (6-20) 17 (6-20) Glucose Level 225 mg/dL (70-99) 279 mg/dL (70-99) Calcium Level 8.9 mg/dL (8.5-10.1) 8.4 mg/dL (8.5-10.1) Magnesium Level 2.2 mg/dL (1.8-2.4) Total Bilirubin 0.6 mg/dL (0.2-1.0) 0.4 mg/dL (0.2-1.0) Aspartate Amino Transf (AST/SGOT) 13 U/L (15-37) 9 U/L (15-37) Alanine Aminotransferase (ALT/SGPT) 20 U/L (14-59) 15 U/L (14-59) Alkaline Phosphatase 130 U/L (46-116) 108 U/L (46-116) Troponin I Quantitative < 0.017 ng/mL (0.000-0.055) YS-Tkf-Q-Type Natriuretic Peptide 1863 pg/mL (0-124) Total Protein 7.2 g/dL (6.4-8.2) 6.6 g/dL (6.4-8.2) Albumin 3.3 g/dL (3.4-5.0) 2.7 g/dL (3.4-5.0) Albumin/Globulin Ratio 0.8 (1.0-1.7) 0.7 (1.0-1.7) Influenza Type A Antigen Negative (NEGATIVE) Influenza Type B Antigen Negative (NEGATIVE) Glucose (Fingerstick) 265 mg/dL (70-99) 407 mg/dL (70-99) Test 07/16/17 07:08 Glucose (Fingerstick) 195 mg/dL (70-99) Laboratory Tests Test 07/15/17 12:21 07/15/17 16:40 07/15/17 21:17 07/16/17 04:22 White Blood Count 7.6 x10^3/uL (4.0-11.0) 9.0 x10^3/uL (4.0-11.0) Red Blood Count 5.24 x10^6/uL (3.50-5.40) 4.75 x10^6/uL (3.50-5.40) Hemoglobin 15.1 g/dL (12.0-15.5) 13.4 g/dL (12.0-15.5) Hematocrit 46.1 % (36.0-47.0) 41.7 % (36.0-47.0) Mean Corpuscular Volume 88 fL (79-100) 88 fL (79-100) Mean Corpuscular Hemoglobin 29 pg (25-35) 28 pg (25-35) Mean Corpuscular Hemoglobin Concent 33 g/dL (31-37) 32 g/dL (31-37) Red Cell Distribution Width 18.7 % (11.5-14.5) 17.9 % (11.5-14.5) Platelet Count 173 x10^3/uL (140-400) 158 x10^3/uL (140-400) Neutrophils (%) (Auto) 74 % (31-73) 81 % (31-73) Lymphocytes (%) (Auto) 19 % (24-48) 14 % (24-48) Monocytes (%) (Auto) 5 % (0-9) 5 % (0-9) Eosinophils (%) (Auto) 2 % (0-3) 0 % (0-3) Basophils (%) (Auto) 0 % (0-3) 1 % (0-3) Neutrophils # (Auto) 5.6 x10^3uL (1.8-7.7) 7.3 x10^3uL (1.8-7.7) Lymphocytes # (Auto) 1.5 x10^3/uL (1.0-4.8) 1.2 x10^3/uL (1.0-4.8) Monocytes # (Auto) 0.4 x10^3/uL (0.0-1.1) 0.4 x10^3/uL (0.0-1.1) Eosinophils # (Auto) 0.1 x10^3/uL (0.0-0.7) 0.0 x10^3/uL (0.0-0.7) Basophils # (Auto) 0.0 x10^3/uL (0.0-0.2) 0.1 x10^3/uL (0.0-0.2) Prothrombin Time 14.4 SEC (11.7-14.0) Prothromb Time International Ratio 1.2 (0.8-1.1) Activated Partial Thromboplast Time 26 SEC (24-38) Sodium Level 141 mmol/L (136-145) 134 mmol/L (136-145) Potassium Level 4.5 mmol/L (3.5-5.1) 4.6 mmol/L (3.5-5.1) Chloride Level 106 mmol/L (98-107) 103 mmol/L (98-107) Carbon Dioxide Level 28 mmol/L (21-32) 23 mmol/L (21-32) Anion Gap 7 (6-14) 8 (6-14) Blood Urea Nitrogen 34 mg/dL (7-20) 38 mg/dL (7-20) Creatinine 2.3 mg/dL (0.6-1.0) 2.2 mg/dL (0.6-1.0) Estimated GFR (Cockcroft-Gault) 22.7 23.9 BUN/Creatinine Ratio 15 (6-20) 17 (6-20) Glucose Level 225 mg/dL (70-99) 279 mg/dL (70-99) Calcium Level 8.9 mg/dL (8.5-10.1) 8.4 mg/dL (8.5-10.1) Magnesium Level 2.2 mg/dL (1.8-2.4) Total Bilirubin 0.6 mg/dL (0.2-1.0) 0.4 mg/dL (0.2-1.0) Aspartate Amino Transf (AST/SGOT) 13 U/L (15-37) 9 U/L (15-37) Alanine Aminotransferase (ALT/SGPT) 20 U/L (14-59) 15 U/L (14-59) Alkaline Phosphatase 130 U/L (46-116) 108 U/L (46-116) Troponin I Quantitative < 0.017 ng/mL (0.000-0.055) IR-Qgj-J-Type Natriuretic Peptide 1863 pg/mL (0-124) Total Protein 7.2 g/dL (6.4-8.2) 6.6 g/dL (6.4-8.2) Albumin 3.3 g/dL (3.4-5.0) 2.7 g/dL (3.4-5.0) Albumin/Globulin Ratio 0.8 (1.0-1.7) 0.7 (1.0-1.7) Influenza Type A Antigen Negative (NEGATIVE) Influenza Type B Antigen Negative (NEGATIVE) Glucose (Fingerstick) 265 mg/dL (70-99) 407 mg/dL (70-99) Test 07/16/17 07:08 Glucose (Fingerstick) 195 mg/dL (70-99) Assessment/Plan Assessment/Plan IMP AECOPD BRONCHITIS CKD STAGE 4 WITH CR STABLE AT ABOUT 2.3 LE EDEMA-STABLE DM II HTN PLAN CONT ANTIBIOTICS CONT WITH DIURETICS PULM SARA IGLESIAS MD Jul 16, 2017 11:20
[2017-07-16] MEDS: IPRATRPIUM/ALBUTEROL 0.5/2.5MG 3 ML NEBU. NEB SCH ×3 (11:30→19:23)
[2017-07-16] MEDS ORDERED: CALCIUM CARBONATE 500 MG TAB.CHEW PO PRN (15:00)
[2017-07-16] MEDS ORDERED: HYDROmorphone 2 MG TABLET PO PRN (19:45)
[2017-07-16] MEDS: ATORVASTATIN CALCIUM 40 MG TABLET. PO SCH (20:54)
[2017-07-16] MEDS ORDERED: MONTELUKAST SODIUM 10 MG TABLET. PO SCH (21:00)
[2017-07-17 03:02] VITALS: BP 110/69
[2017-07-17] MEDS: fentaNYL PF VIAL 100 MCG/2 ML VIAL IV PRN ×2 (03:15→09:44)
[2017-07-17 06:24] LABS: BASO # 0.1 x10^3/uL (0.0-0.2); BASO % 1 % (0-3); EOS % 2 % (0-3); HEMATOCRIT 40.8 % (36.0-47.0); HEMOGLOBIN 13.3 g/dL (12.0-15.5); LYMPH # 1.4 x10^3/uL (1.0-4.8); LYMPH % 17 % (24-48); MEAN CORPUSCULAR HEMOGLOBIN 29 pg (25-35); MEAN CORPUSCULAR HGB CONC 33 g/dL (31-37); MEAN CORPUSCULAR VOLUME 88 fL (79-100); MONO % 4 % (0-9); NEUT % 75 % (31-73); PLATELET COUNT 138 x10^3/uL (140-400); RED BLOOD COUNT 4.66 x10^6/uL (3.50-5.40); RED CELL DISTRIBUTION WIDTH 18.5 % (11.5-14.5); WHITE BLOOD COUNT 8.1 x10^3/uL (4.0-11.0)
[2017-07-17 06:58] LABS: CALCIUM 8.3 mg/dL (8.5-10.1); CREATININE 2.2 mg/dL (0.6-1.0); GFR 23.9; POTASSIUM 4.3 mmol/L (3.5-5.1)
[2017-07-17 07:00] VITALS: BP 98/65
[2017-07-17] MEDS: INSULIN ASPART 300 UNITS/3 ML INSULN.PEN SQ SCH ×2 (07:30→11:30)
[2017-07-17] MEDS: CARVEDILOL 6.25 MG TABLET. PO SCH (08:00)
[2017-07-17] MEDS: ASPIRIN 325 MG TABLET PO SCH (08:35)
[2017-07-17] MEDS: PANTOPRAZOLE 40 MG TABLET.DR. PO SCH (08:35)
[2017-07-17] MEDS: IPRATRPIUM/ALBUTEROL 0.5/2.5MG 3 ML NEBU. NEB SCH (08:38)
[2017-07-17] MEDS: INSULIN DETEMIR 300 UNITS/3 ML INSULN.PEN. SQ SCH (09:00)
[2017-07-17] MEDS ORDERED: ASPIRIN ENTERIC COATED 81 MG TABLET.DR. PO SCH (09:00)
[2017-07-17] MEDS: AMMONIUM LACTATE 12% TOPICAL LOTION 226GM BOTTLE. TP SCH (09:45)
[2017-07-17 10:40] VITALS: BP 101/62
[2017-07-17] MEDS ORDERED: CARV3.122 PO (11:22)
--- NOTE | 2017-07-17 11:42 | PDOC ---
IM PROGRESS NOTES- Subjective Subjective Feeling better. Objective Vitals Vital Signs Date Time Temp Pulse Resp B/P (MAP) Pulse Ox O2 Delivery O2 Flow Rate FiO2 07/17/17 10:40 97.9 105 20 101/62 (75) 89 Room Air 97.9 07/17/17 03:45 2.0 Physical Exam Physical Exam General appearance - alert,well appearing, and in no distress and oriented to person, place, and time Mental Status - alert, oriented to person, place, and time, affect appropriate to mood Head - normal Chest - clear to auscultation, no wheezes, rales or rhonchi, symmetric air entry Heart - S1 and S2 normal Abdomen - soft, nontender, nondistended, no masses or organomegaly Neurological - alert and oriented Musculoskeletal - no muscular tenderness noted Extremities - + pedal edema Skin - warm and dry ? chronic Erythema ,stasis on cheeks,legs Labs Laboratory Tests Test 07/15/17 12:21 07/15/17 16:40 07/15/17 21:17 07/16/17 04:22 White Blood Count 7.6 x10^3/uL (4.0-11.0) 9.0 x10^3/uL (4.0-11.0) Red Blood Count 5.24 x10^6/uL (3.50-5.40) 4.75 x10^6/uL (3.50-5.40) Hemoglobin 15.1 g/dL (12.0-15.5) 13.4 g/dL (12.0-15.5) Hematocrit 46.1 % (36.0-47.0) 41.7 % (36.0-47.0) Mean Corpuscular Volume 88 fL (79-100) 88 fL (79-100) Mean Corpuscular Hemoglobin 29 pg (25-35) 28 pg (25-35) Mean Corpuscular Hemoglobin Concent 33 g/dL (31-37) 32 g/dL (31-37) Red Cell Distribution Width 18.7 % (11.5-14.5) 17.9 % (11.5-14.5) Platelet Count 173 x10^3/uL (140-400) 158 x10^3/uL (140-400) Neutrophils (%) (Auto) 74 % (31-73) 81 % (31-73) Lymphocytes (%) (Auto) 19 % (24-48) 14 % (24-48) Monocytes (%) (Auto) 5 % (0-9) 5 % (0-9) Eosinophils (%) (Auto) 2 % (0-3) 0 % (0-3) Basophils (%) (Auto) 0 % (0-3) 1 % (0-3) Neutrophils # (Auto) 5.6 x10^3uL (1.8-7.7) 7.3 x10^3uL (1.8-7.7) Lymphocytes # (Auto) 1.5 x10^3/uL (1.0-4.8) 1.2 x10^3/uL (1.0-4.8) Monocytes # (Auto) 0.4 x10^3/uL (0.0-1.1) 0.4 x10^3/uL (0.0-1.1) Eosinophils # (Auto) 0.1 x10^3/uL (0.0-0.7) 0.0 x10^3/uL (0.0-0.7) Basophils # (Auto) 0.0 x10^3/uL (0.0-0.2) 0.1 x10^3/uL (0.0-0.2) Prothrombin Time 14.4 SEC (11.7-14.0) Prothromb Time International Ratio 1.2 (0.8-1.1) Activated Partial Thromboplast Time 26 SEC (24-38) Sodium Level 141 mmol/L (136-145) 134 mmol/L (136-145) Potassium Level 4.5 mmol/L (3.5-5.1) 4.6 mmol/L (3.5-5.1) Chloride Level 106 mmol/L (98-107) 103 mmol/L (98-107) Carbon Dioxide Level 28 mmol/L (21-32) 23 mmol/L (21-32) Anion Gap 7 (6-14) 8 (6-14) Blood Urea Nitrogen 34 mg/dL (7-20) 38 mg/dL (7-20) Creatinine 2.3 mg/dL (0.6-1.0) 2.2 mg/dL (0.6-1.0) Estimated GFR (Cockcroft-Gault) 22.7 23.9 BUN/Creatinine Ratio 15 (6-20) 17 (6-20) Glucose Level 225 mg/dL (70-99) 279 mg/dL (70-99) Calcium Level 8.9 mg/dL (8.5-10.1) 8.4 mg/dL (8.5-10.1) Magnesium Level 2.2 mg/dL (1.8-2.4) Total Bilirubin 0.6 mg/dL (0.2-1.0) 0.4 mg/dL (0.2-1.0) Aspartate Amino Transf (AST/SGOT) 13 U/L (15-37) 9 U/L (15-37) Alanine Aminotransferase (ALT/SGPT) 20 U/L (14-59) 15 U/L (14-59) Alkaline Phosphatase 130 U/L (46-116) 108 U/L (46-116) Troponin I Quantitative < 0.017 ng/mL (0.000-0.055) SD-Yaz-T-Type Natriuretic Peptide 1863 pg/mL (0-124) Total Protein 7.2 g/dL (6.4-8.2) 6.6 g/dL (6.4-8.2) Albumin 3.3 g/dL (3.4-5.0) 2.7 g/dL (3.4-5.0) Albumin/Globulin Ratio 0.8 (1.0-1.7) 0.7 (1.0-1.7) Influenza Type A Antigen Negative (NEGATIVE) Influenza Type B Antigen Negative (NEGATIVE) Glucose (Fingerstick) 265 mg/dL (70-99) 407 mg/dL (70-99) Test 07/16/17 07:08 07/16/17 11:33 07/16/17 16:22 07/16/17 20:48 Glucose (Fingerstick) 195 mg/dL (70-99) 104 mg/dL (70-99) 161 mg/dL (70-99) 119 mg/dL (70-99) Test 07/17/17 05:00 07/17/17 07:48 White Blood Count 8.1 x10^3/uL (4.0-11.0) Red Blood Count 4.66 x10^6/uL (3.50-5.40) Hemoglobin 13.3 g/dL (12.0-15.5) Hematocrit 40.8 % (36.0-47.0) Mean Corpuscular Volume 88 fL (79-100) Mean Corpuscular Hemoglobin 29 pg (25-35) Mean Corpuscular Hemoglobin Concent 33 g/dL (31-37) Red Cell Distribution Width 18.5 % (11.5-14.5) Platelet Count 138 x10^3/uL (140-400) Neutrophils (%) (Auto) 75 % (31-73) Lymphocytes (%) (Auto) 17 % (24-48) Monocytes (%) (Auto) 4 % (0-9) Eosinophils (%) (Auto) 2 % (0-3) Basophils (%) (Auto) 1 % (0-3) Neutrophils # (Auto) 6.1 x10^3uL (1.8-7.7) Lymphocytes # (Auto) 1.4 x10^3/uL (1.0-4.8) Monocytes # (Auto) 0.4 x10^3/uL (0.0-1.1) Eosinophils # (Auto) 0.2 x10^3/uL (0.0-0.7) Basophils # (Auto) 0.1 x10^3/uL (0.0-0.2) Sodium Level 140 mmol/L (136-145) Potassium Level 4.3 mmol/L (3.5-5.1) Chloride Level 105 mmol/L (98-107) Carbon Dioxide Level 25 mmol/L (21-32) Anion Gap 10 (6-14) Blood Urea Nitrogen 40 mg/dL (7-20) Creatinine 2.2 mg/dL (0.6-1.0) Estimated GFR (Cockcroft-Gault) 23.9 Glucose Level 105 mg/dL (70-99) Calcium Level 8.3 mg/dL (8.5-10.1) Magnesium Level 1.9 mg/dL (1.8-2.4) Glucose (Fingerstick) 87 mg/dL (70-99) Laboratory Tests Test 07/16/17 16:22 07/16/17 20:48 07/17/17 05:00 07/17/17 07:48 Glucose (Fingerstick) 161 mg/dL (70-99) 119 mg/dL (70-99) 87 mg/dL (70-99) White Blood Count 8.1 x10^3/uL (4.0-11.0) Red Blood Count 4.66 x10^6/uL (3.50-5.40) Hemoglobin 13.3 g/dL (12.0-15.5) Hematocrit 40.8 % (36.0-47.0) Mean Corpuscular Volume 88 fL (79-100) Mean Corpuscular Hemoglobin 29 pg (25-35) Mean Corpuscular Hemoglobin Concent 33 g/dL (31-37) Red Cell Distribution Width 18.5 % (11.5-14.5) Platelet Count 138 x10^3/uL (140-400) Neutrophils (%) (Auto) 75 % (31-73) Lymphocytes (%) (Auto) 17 % (24-48) Monocytes (%) (Auto) 4 % (0-9) Eosinophils (%) (Auto) 2 % (0-3) Basophils (%) (Auto) 1 % (0-3) Neutrophils # (Auto) 6.1 x10^3uL (1.8-7.7) Lymphocytes # (Auto) 1.4 x10^3/uL (1.0-4.8) Monocytes # (Auto) 0.4 x10^3/uL (0.0-1.1) Eosinophils # (Auto) 0.2 x10^3/uL (0.0-0.7) Basophils # (Auto) 0.1 x10^3/uL (0.0-0.2) Sodium Level 140 mmol/L (136-145) Potassium Level 4.3 mmol/L (3.5-5.1) Chloride Level 105 mmol/L (98-107) Carbon Dioxide Level 25 mmol/L (21-32) Anion Gap 10 (6-14) Blood Urea Nitrogen 40 mg/dL (7-20) Creatinine 2.2 mg/dL (0.6-1.0) Estimated GFR (Cockcroft-Gault) 23.9 Glucose Level 105 mg/dL (70-99) Calcium Level 8.3 mg/dL (8.5-10.1) Magnesium Level 1.9 mg/dL (1.8-2.4) Meds Current Medications Albuterol/ Ipratropium (Duoneb) 3 ml RTQID NEB Last administered on 07/17/17 08:38; Start 07/16/17 at 12:00 Aspirin (Ecotrin) 81 mg QODAY PO ; Start 07/17/17 at 09:00; Stop 07/17/17 at 09: 00; Status DC Calcium Carbonate/ Glycine (Tums) 1,000 mg PRN TID PRN PO INDIGESTION Last administered on 07/16/17 15:01; Start 07/16/17 at 15:00 Fentanyl (Duragesic 50mcg/ Hr Patch) 1 patch Q3DAYS TD ; Start 07/19/17 at 09:00 ; Stop 07/19/17 at 09:00; Status DC Fentanyl Citrate (Fentanyl 2ml Vial) 25 mcg PRN Q4HRS PRN IV PAIN SEVERE Last administered on 07/17/17 09:44; Start 07/16/17 at 19:45 Hydromorphone HCl (Dilaudid) 2 mg PRN Q6HRS PRN PO PAIN; Start 07/16/17 at 19: 45 Levofloxacin/ Dextrose 100 ml @ 100 mls/hr Q24H IV Last administered on 14:10; Start 07/16/17 at 14:00 Montelukast Sodium (Singulair) 10 mg QHS PO Last administered on 07/16/17 20: 54; Start 07/16/17 at 21:00 Assessment Assessment 1. Viral bronchitis with secondary bacterial infection 2. ARF with CKD III 3. AE COPD 4. systolic CHF EF 25% per CC stable not acute 5. recent hemodialysis for ESRD 6. JENNA O2 3L NC at hs (CPAP in tolerant) 7. anemia CD renal 8. DVT RLE 12/11/16 on Eliquis with h/o PE, DVT RLE & IVC filter 9. DM II with neuropathy, PVD, chronic insulin use 10 anxiety/depression 11. HTN 12. hyperlipidemia 13. CAD with h/o GA and PCI with stent placed 14. GERD 15. chronic LBP 16. h/o hypercapnic/hypoxic respiratory failure with narcotics 13. 17. h/o CVA 18. COPD with remote h/o tobacco abuse 19. h/o urine retention 20. 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 morbid obesity 22. chronic moderate PCL malnutrition 23. Diarrhea resolved PLAN: AB/AECOPD - Levaquin IV, mucinex, nebulizer duoneb/budesonide, supplemental O2, Prednisone 50mg x 1 ED --inf AB negative --Flu shot given ARF - consult Renal for adjustment demedex. Cr Cl 40s DM II -FSBS SSI Home lantus 60u bid; Novolog 45 TID ac + ssi --dietary changes here so Lantus decreased to 45u bid and Novolog 22 unit TID + SSI - non compliant with diet in out patient setting CHF - not acute, monitor' DVT/GI prophylaxis - SCD/HUE PPI Hypotension improving.Decrease Coreg to 3.125 mg bid.she will take 6.25 mg 1/2 tablet bid. Doing much better.PO Levaquin for 5 days. see in office in 5 days. Discharge Management - 35 minutes. Plan Plan IMPRESSION: 1. Viral bronchitis with secondary bacterial infection 2. ARF with CKD III 3. AE COPD 4. systolic CHF EF 25% per CC stable not acute 5. recent hemodialysis for ESRD 6. JENNA O2 3L NC at hs (CPAP in tolerant) 7. anemia CD renal 8. DVT RLE 12/11/16 on Eliquis with h/o PE, DVT RLE & IVC filter 9. DM II with neuropathy, PVD, chronic insulin use 10 anxiety/depression 11. HTN 12. hyperlipidemia 13. CAD with h/o GA and PCI with stent placed 14. GERD 15. chronic LBP 16. h/o hypercapnic/hypoxic respiratory failure with narcotics 13. 17. h/o CVA 18. COPD with remote h/o tobacco abuse 19. h/o urine retention 20. 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 morbid obesity 22. chronic moderate PCL malnutrition 23. Diarrhea resolved PLAN: AB/AECOPD - Levaquin IV, mucinex, nebulizer duoneb/budesonide, supplemental O2, Prednisone 50mg x 1 ED --inf AB negative --Flu shot given ARF - consult Renal for adjustment demedex. Cr Cl 40s DM II -FSBS SSI Home lantus 60u bid; Novolog 45 TID ac + ssi --dietary changes here so Lantus decreased to 45u bid and Novolog 22 unit TID + SSI - non compliant with diet in out patient setting CHF - not acute, monitor' DVT/GI prophylaxis - SCD/HUE PPI For more details regarding further plans, please refer to the orders. CHELE SINGH MD Jul 17, 2017 11:41
--- NOTE | 2017-07-17 11:53 | PDOC ---
SUBJECTIVE ROS CKD IV doing and feeling well - ready to go home CVS: no Orthopnea, no CP RESP: no SOB, no CARRION GI: no Nausea, no Vomiting : no Dysuria, no Urgency OBJECTIVE Vital Signs Vital Signs Date Time Temp Pulse Resp B/P (MAP) Pulse Ox O2 Delivery O2 Flow Rate FiO2 07/17/17 10:40 97.9 105 20 101/62 (75) 89 Room Air 97.9 07/17/17 03:45 2.0 PHYSICAL EXAM Physical Exam GEN: Awake, Oriented x 3, In no distress EYES: Vision Unchanged, Conjunctiva Normal EN: No EN Drainage, Mucous Membranes moist NECK: no JVD, min JVP, Supple, no Thyromegaly CVS: S1S2, ? Murmur, No Gallop, No Rub,+ ch Edema RESP: no Rales, no Rhonchi,no Acc. Muscle Use GI: BS + ve, NO Bruit, Non Tender, Non Distended - obese : no CVA tenderness, no Suprapubic Tenderness DIAGNOSIS/ASSESSMENT Assessment & Plan CKD IV: no uremic s/s. Current fluid and E-lyte status does not necessitate emergent need for dialysis. F/up as OP as scheduled Edema - min and asymptomatic, ch venous changes noted on vinay torres HTN: Well controlled on Current meds as reviewed. See orders for changes. Hypoalbuminemia - ? due to liver failure vs due to Poor PO intake. Check for proteinruia as OP Discussed Plan of Care with pt at bedside Problems: COMMENT/RELEVANT DATA Meds Current Medications Medications (Trade) Dose Ordered Sig/Ant Start Time Stop Time Status Last Admin Dose Admin Acetaminophen (Tylenol) 650 mg PRN Q6HRS PRN 07/15/17 21:30 Albuterol/ Ipratropium (Duoneb) 3 ml RTQID 07/16/17 12:00 07/17/17 08:38 3 ML Apixaban (Eliquis) 5 mg BID 07/16/17 10:00 07/16/17 10:00 DC Aspirin (Leighton Aspirin) 325 mg [id number] 07/16/17 10:30 07/17/17 08:35 325 MG Aspirin (Ecotrin) 81 mg QODAY 07/17/17 09:00 07/17/17 09:00 DC Atorvastatin Calcium (Lipitor) 40 mg HS 07/15/17 22:00 10/6/17 20:54 40 MG Benzonatate (Tessalon Perle) 100 mg PRN TID PRN 07/16/17 09:30 Calcium Carbonate/ Glycine (Tums) 1,000 mg PRN TID PRN 07/16/17 15:00 07/16/17 15:01 1,000 MG Carvedilol (Coreg) 6.25 mg BIDWMEALS 07/16/17 08:00 Ceftriaxone Sodium 1 gm/ Sodium Chloride 50 ml @ 100 mls/hr Q24H 07/16/17 09:15 07/16/17 09:23 DC Ceftriaxone Sodium 50 ml @ 100 mls/hr 1X ONCE 07/15/17 14:00 07/15/17 14:04 DC Fentanyl (Duragesic 12mcg/ Hr Patch) 1 patch Q3DAYS 07/16/17 10:00 07/16/17 10:29 1 PATCH Fentanyl (Duragesic 50mcg/ Hr Patch) 1 patch Q3DAYS 07/19/17 09:00 07/19/17 09:00 DC Fentanyl Citrate (Fentanyl 2ml Vial) 25 mcg PRN Q4HRS PRN 07/16/17 19:45 07/17/17 09:44 25 MCG Guaifenesin (Mucinex) 600 mg BID 07/16/17 10:00 07/17/17 08:35 600 MG Hydromorphone HCl (Dilaudid) 2 mg PRN Q6HRS PRN 07/16/17 19:45 Influenza Virus Vaccine Quadrival (Fluarix Quad [id number] Syringe) 0.5 ml ONCE ONCE 07/15/17 18:30 07/15/17 18:31 DC 07/16/17 11:46 0.5 ML Info (Do NOT chart on this placeholder) 0.5 each 1X ONCE 07/15/17 18:30 07/15/17 18:31 UNV Insulin Aspart (NovoLOG) 22 units TIDAC 07/16/17 07:30 07/16/17 17:13 22 UNITS Insulin Detemir (Levemir) 40 units BID 07/16/17 10:00 07/16/17 21:01 20 UNITS Lactic Acid (Lac-Hydrin) 1 stephanie BID 07/16/17 10:00 07/17/17 09:45 1 STEPHANIE Levofloxacin/ Dextrose 100 ml @ 100 mls/hr Q24H 07/16/17 14:00 07/16/17 14:10 100 MLS/HR Montelukast Sodium (Singulair) 10 mg QHS 07/16/17 21:00 07/16/17 20:54 10 MG Nitroglycerin (Nitrostat) 0.4 mg PRN Q5MIN PRN 07/16/17 09:30 Ondansetron HCl (Zofran Odt) 4 mg PRN Q8HRS PRN 07/15/17 21:30 07/16/17 09:30 4 MG Ondansetron HCl (Zofran) 4 mg PRN Q8HRS PRN 07/15/17 13:15 07/16/17 09:13 DC Pantoprazole Sodium (Protonix) 40 mg DAILYAC 07/16/17 10:00 07/17/17 08:35 40 MG Prednisone (Prednisone) 50 mg 1X ONCE 07/15/17 12:15 07/15/17 12:16 DC 07/15/17 12:44 50 MG Lab Laboratory Tests Test 07/16/17 16:22 07/16/17 20:48 07/17/17 05:00 07/17/17 07:48 Glucose (Fingerstick) 161 mg/dL (70-99) 119 mg/dL (70-99) 87 mg/dL (70-99) White Blood Count 8.1 x10^3/uL (4.0-11.0) Red Blood Count 4.66 x10^6/uL (3.50-5.40) Hemoglobin 13.3 g/dL (12.0-15.5) Hematocrit 40.8 % (36.0-47.0) Mean Corpuscular Volume 88 fL (79-100) Mean Corpuscular Hemoglobin 29 pg (25-35) Mean Corpuscular Hemoglobin Concent 33 g/dL (31-37) Red Cell Distribution Width 18.5 % (11.5-14.5) Platelet Count 138 x10^3/uL (140-400) Neutrophils (%) (Auto) 75 % (31-73) Lymphocytes (%) (Auto) 17 % (24-48) Monocytes (%) (Auto) 4 % (0-9) Eosinophils (%) (Auto) 2 % (0-3) Basophils (%) (Auto) 1 % (0-3) Neutrophils # (Auto) 6.1 x10^3uL (1.8-7.7) Lymphocytes # (Auto) 1.4 x10^3/uL (1.0-4.8) Monocytes # (Auto) 0.4 x10^3/uL (0.0-1.1) Eosinophils # (Auto) 0.2 x10^3/uL (0.0-0.7) Basophils # (Auto) 0.1 x10^3/uL (0.0-0.2) Sodium Level 140 mmol/L (136-145) Potassium Level 4.3 mmol/L (3.5-5.1) Chloride Level 105 mmol/L (98-107) Carbon Dioxide Level 25 mmol/L (21-32) Anion Gap 10 (6-14) Blood Urea Nitrogen 40 mg/dL (7-20) Creatinine 2.2 mg/dL (0.6-1.0) Estimated GFR (Cockcroft-Gault) 23.9 Glucose Level 105 mg/dL (70-99) Calcium Level 8.3 mg/dL (8.5-10.1) Magnesium Level 1.9 mg/dL (1.8-2.4) Test 07/17/17 11:27 Glucose (Fingerstick) 118 mg/dL (70-99) PAIGE MOSQUEDA MD Jul 17, 2017 11:53
[2017-07-19] MEDS ORDERED: fentaNYL 50MCG/HR PATCH 1 PATCH PATCH.TD72 TD SCH (09:00)
--- NOTE | 2017-07-20 14:40 | PDOC3 ---
IM DISCHARGE SUMMARY Date of Admission Date of Admission Date of Admission: Jul 16, 2017 at 09:32 Date of Discharge Date of Discharge 07/17/17 Primary Diagnosis Primary Diagnosis Final Diagnosis: 1. Viral bronchitis with secondary bacterial infection 2. ARF with CKD III KENDAL medications 3. AE COPD 4. systolic CHF EF 25% per CC stable not acute 5. recent hemodialysis for ESRD 6. JENNA O2 3L NC at hs (CPAP in tolerant) 7. anemia CD renal 8. DVT RLE 12/11/16 on Eliquis with h/o PE, DVT RLE & IVC filter 9. DM II with neuropathy, PVD, chronic insulin use 10 anxiety/depression 11. HTN 12. hyperlipidemia 13. CAD with h/o HI and PCI with stent placed 14. GERD 15. chronic LBP 16. h/o hypercapnic/hypoxic respiratory failure with narcotics 13. 17. h/o CVA 18. COPD with remote h/o tobacco abuse 19. h/o urine retention 20. 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 morbid obesity 22. chronic moderate PCL malnutrition 23. Diarrhea resolved Problems: Consults Consults Chris Toussaint MD Procedures Procedures None Labs Labs See EHR Brief hospital course Brief hospital course This 46 year old female who presented with dyspnea was admitted. The following is a summary of her treatment: PLAN: Hypotension improving.Decrease Coreg to 3.125 mg bid.she will take 6.25 mg 1/2 tablet bid. Doing much better.PO Levaquin for 5 days. see in office in 5 days. Discharge Management - 35 minutes. 07/16/17 AB/AECOPD - Levaquin IV, mucinex, nebulizer duoneb/budesonide, supplemental O2, Prednisone 50mg x 1 ED --inf AB negative --Flu shot given ARF - consult Renal for adjustment demedex. Cr Cl 40s DM II -FSBS SSI Home lantus 60u bid; Novolog 45 TID ac + ssi --dietary changes here so Lantus decreased to 45u bid and Novolog 22 unit TID + SSI - non compliant with diet in out patient setting CHF - not acute, monitor' DVT/GI prophylaxis - SCD/HUE PPI For more details regarding the past history, family history, social history, surgical history and other details, please refer to History and Physical. She was discharged home with instructions to f/u in office in 5 days. Medications Medications reviewed and reconciled for discharge. Allergy Allergies Coded Allergies Type Severity Reaction Last Updated Verified Penicillins Allergy Severe causes swelling of throat 01/15/17 Yes Sulfa (Sulfonamide Antibiotics) Allergy Severe causes throat to swell 01/15/17 Yes amoxicillin Allergy Severe causes swelling of throat 01/15/17 Yes clarithromycin Allergy Severe causes throat to swell 01/15/17 Yes codeine Allergy Severe "closed up my throat and itching" 01/31/17 Yes hydrocodone Allergy Severe "closes up my throat and itching" 01/31/17 Yes silver sulfadiazine Allergy Severe Rash 01/15/17 Yes oxycodone Allergy Intermediate 01/15/17 Yes tramadol Allergy Intermediate Nausea and Vomiting 01/15/17 Yes Follow up in 5 days. DISPOSITION: Home Comments Discharge Management - 35 minutes. For other details please refer to discharge instructions YVONNE LAYNE APRN Jul 20, 2017 14:40
== END 2017-07-17 12:50 | disposition home or self-care (01) | DRG 190 ==
LOC: ER 11:28 → 5 NORTH 13:04 → OBSVTOIN 07-16 09:32
PROVIDERS: ADMIT Internal Medicine; ATTEND Internal Medicine
DX: J44.0 Chronic obstructive pulmonary disease with (acute) lower respiratory infection (principal); N18.6 End stage renal disease; I13.2 Hypertensive heart and chronic kidney disease with heart failure and with stage 5 chronic kidney disease, or end stage renal disease; N17.9 Acute kidney failure, unspecified; E11.22 Type 2 diabetes mellitus with diabetic chronic kidney disease; E44.0 Moderate protein-calorie malnutrition; I50.20 Unspecified systolic (congestive) heart failure; N25.81 Secondary hyperparathyroidism of renal origin; J20.8 Acute bronchitis due to other specified organisms; J44.1 Chronic obstructive pulmonary disease with (acute) exacerbation; E11.42 Type 2 diabetes mellitus with diabetic polyneuropathy; J45.998 Other asthma; E11.40 Type 2 diabetes mellitus with diabetic neuropathy, unspecified; F32.9 Major depressive disorder, single episode, unspecified; F41.9 Anxiety disorder, unspecified; G47.33 Obstructive sleep apnea (adult) (pediatric); G89.29 Other chronic pain; I25.10 Atherosclerotic heart disease of native coronary artery without angina pectoris; I25.2 Old myocardial infarction; I73.9 Peripheral vascular disease, unspecified; K21.9 Gastro-esophageal reflux disease without esophagitis; K76.0 Fatty (change of) liver, not elsewhere classified; E66.01 Morbid (severe) obesity due to excess calories; D63.1 Anemia in chronic kidney disease; M54.5 Low back pain; R19.7 Diarrhea, unspecified; M10.9 Gout, unspecified; Z82.49 Family history of ischemic heart disease and other diseases of the circulatory system; Z83.3 Family history of diabetes mellitus; Z86.711 Personal history of pulmonary embolism; Z86.718 Personal history of other venous thrombosis and embolism; Z86.73 Personal history of transient ischemic attack (TIA), and cerebral infarction without residual deficits; Z89.419 Acquired absence of unspecified great toe; Z95.5 Presence of coronary angioplasty implant and graft; Z99.2 Dependence on renal dialysis; Z90.49 Acquired absence of other specified parts of digestive tract; Z87.891 Personal history of nicotine dependence; Z88.6 Allergy status to analgesic agent; Z88.1 Allergy status to other antibiotic agents; Z88.0 Allergy status to penicillin; Z88.2 Allergy status to sulfonamides; Z88.8 Allergy status to other drugs, medicaments and biological substances; Z91.11 Patient's noncompliance with dietary regimen; Z68.35 Body mass index [BMI] 35.0-35.9, adult; Z79.01 Long term (current) use of anticoagulants; Z79.4 Long term (current) use of insulin
CPT/HCPCS: 36415; 71010; 80048; 80053; 82962; 83735; 83880; 84484; 85025; 85610; 85730; 87804; 90686; 93005; 94250; 94640; 94760; 96365; 96375; G0378; G0379; J1815; J1956; J3010; J7512; J7620; Q0162; 99285-25

== ENCOUNTER 2017-08-25 14:02 | Emergency (ER) | payer MEDICARE, MEDICAID ==
[~2017-08-25] VITALS: Ht 165.1 cm; Wt 116.6 kg
[~2017-08-25 14:02] MED LIST changes: +AMMO385C5 TP; +ASCO-78 PO; +CARV3.122 PO; +FAMO-63 PO; +FENT1PAT89 TD; +MAGN400T22 PO; +OMEP20TA8 PO; +PROAIR HFA8.5 GM INH
[2017-08-25 14:05] VITALS: BP 140/80
[2017-08-25] MEDS ORDERED: ONDANSETRON ODT 4 MG TAB.RAPDIS. PO ONE (14:15)
[2017-08-25] MEDS ORDERED: ACETAMINOPHEN 325 MG TABLET. PO ONE (14:15)
[2017-08-25] MEDS ORDERED: IBUPROFEN 600 MG TABLET. PO ONE (14:15)
--- NOTE | 2017-08-25 14:37 | RAD ---
CT of the head without contrast, 08/25/2017: History: Head injury Comparison is made to a study from 08/29/2014. The ventricles are within normal limits in size. There is no shift of the midline structures. There is no evidence of acute intracranial hemorrhage or mass effect. A tiny nonspecific calcification in the right side of the shelly is unchanged. This is likely due to an old inflammatory insult. No abnormal extra-axial fluid collection or mass is seen. The incompletely visualized right maxillary sinus is nearly completely opacified. This is likely on an inflammatory basis. A small amount of fluid was evident in that sinus on the previous study. The bone windows show no evidence of fracture. IMPRESSION: No acute intracranial abnormality is detected. PQRS Compliance Statement: One or more of the following individualized dose reduction techniques were utilized for this examination: 1. Automated exposure control 2. Adjustment of the mA and/or kV according to patient size 3. Use of iterative reconstruction technique
--- NOTE | 2017-08-25 14:44 | PHYS DOC ---
Past Medical History Past Medical History: COPD, CVA, Diabetes-Type II, DVT, GERD, High Cholesterol , Hypertension, [place], Renal Disease, Other Additional Past Medical Histor: PE, CHRONIC BACK PAIN, ENLARGED LIVER Past Surgical History: Angioplasty, Cholecystectomy, , Other Additional Past Surgical Histo: CARDIAC STENT, VENA CAVA FILTER, HERNIA SURG, 4TH & 5TH RIGHT TOE AMP Alcohol Use: None Drug Use: None Adult General Chief Complaint Chief Complaint: MECHANICAL FALL HPI HPI Patient is a 46 year old female who presents with accidental fall outdoors. Patient states she landed on her buttocks and then rolled backwards hitting the back of her head off of the concrete. Patient denies loss of consciousness, but reports feeling briefly dazed.. She reports posterior headache, scalp tenderness and tailbone pain. She takes a daily aspirin but is not on any other antiplatelet or anticoagulation therapy. Denies nausea, vomiting, neck pain. 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 Arrives by EMS. No other symptoms or complaints. [] Review of Systems Review of Systems Review symptoms as prescribed. All other systems were reviewed and found to be within normal limits, except as documented in this note. Current Medications Current Medications Current Medications Medications (Trade) Dose Ordered Sig/Ant Start Time Stop Time Status Last Admin Dose Admin Acetaminophen (Tylenol) 650 mg 1X ONCE 08/25/17 14:15 08/25/17 14:18 DC 08/25/17 14:26 650 MG Ibuprofen (Motrin) 600 mg 1X ONCE 08/25/17 14:15 08/25/17 14:18 DC 08/25/17 14:26 600 MG Ondansetron HCl (Zofran Odt) 4 mg 1X ONCE 08/25/17 14:15 08/25/17 14:18 DC 08/25/17 14:26 4 MG Allergies Allergies Allergies Coded Allergies Type Severity Reaction Last Updated Verified Penicillins Allergy Severe causes swelling of throat 01/15/17 Yes Sulfa (Sulfonamide Antibiotics) Allergy Severe causes throat to swell 01/15/17 Yes amoxicillin Allergy Severe causes swelling of throat 01/15/17 Yes clarithromycin Allergy Severe causes throat to swell 01/15/17 Yes codeine Allergy Severe "closed up my throat and itching" 01/31/17 Yes hydrocodone Allergy Severe "closes up my throat and itching" 01/31/17 Yes silver sulfadiazine Allergy Severe Rash 01/15/17 Yes oxycodone Allergy Intermediate 01/15/17 Yes tramadol Allergy Intermediate Nausea and Vomiting 01/15/17 Yes Physical Exam Physical Exam Constitutional: Well developed, well nourished, no acute distress, non-toxic appearance. [] HENT: Normocephalic, ST or scalp tenderness, no abrasions appreciated, bilateral external ears normal, oropharynx moist, no oral exudates, nose normal. [] Eyes: PERRLA, EOMI, conjunctiva normal, no discharge. [] Neck: Normal range of motion, midline bony tenderness,, supple, no stridor. [] Cardiovascular:Heart rate regular rhythm, no murmur [] Lungs & Thorax: Bilateral breath sounds clear to auscultation [] Abdomen: Bowel sounds normal, soft, no tenderness, no masses, no pulsatile masses. [] Skin: Warm, dry, no erythema, no rash. [] Back: No tenderness, no CVA tenderness. [] Extremities: No tenderness, no cyanosis, no clubbing, ROM intact, no edema. [] Neurologic: Alert and oriented X 3, cranial nerves II through XII grossly intact , normal motor function, normal sensory function, no focal deficits noted. [] Psychologic: Affect normal, judgement normal, mood normal. [] Current Patient Data Vital Signs Vital Signs Date Time Temp Pulse Resp B/P (MAP) Pulse Ox O2 Delivery O2 Flow Rate FiO2 08/25/17 14:05 98.1 117 16 91 Room Air 98.1 EKG EKG [] Radiology/Procedures Radiology/Procedures [CT head: Nonacute per radiology report.] Course & Med Decision Making Course & Med Decision Making Pertinent Labs and Imaging studies reviewed. (See chart for details) [Accidental fall resulting in closed head injury without loss of consciousness. CT head nonacute. Symptoms consistent with concussion. Patient is not on anticoagulation therapy. Patient also has pain tenderness over her tailbone but is able to sit and walk with steady gait. Typical closed head injury instructions. Recommend supportive care with PCP follow-up. Return precautions reviewed.] Dragon Disclaimer Dragon Disclaimer This electronic medical record was generated, in whole or in part, using a voice recognition dictation system. Departure Departure Impression: Primary Impression: Concussion Additional Impression: Tail bone pain Disposition: 01 HOME, SELF-CARE Condition: GOOD Referrals: CHELE SINGH MD (PCP) Patient Instructions: Concussion and Brain Injury, [id number], Tailbone Injury, [id number] Additional Instructions: You were evaluated in the emergency department for all head injury and tailbone. A CT scan was performed which does not show evidence of head injury. Your symptoms are consistent with concussion syndrome and bruised tailbone. Please take Tylenol ibuprofen for pain and indoors and rest. Follow-up with your PCP in 3 days for reevaluation. In the meantime if you develop new or worsening symptoms, return to the ED. Problem Qualifiers SYLWIA CLIFFORD DO Aug 25, 2017 14:44
== END 2017-08-25 15:03 | disposition home or self-care (01) ==
LOC: ER 14:02
DX: S06.0X0A Concussion without loss of consciousness, initial encounter (principal); M53.3 Sacrococcygeal disorders, not elsewhere classified; J44.9 Chronic obstructive pulmonary disease, unspecified; E11.22 Type 2 diabetes mellitus with diabetic chronic kidney disease; I12.9 Hypertensive chronic kidney disease with stage 1 through stage 4 chronic kidney disease, or unspecified chronic kidney disease; N18.9 Chronic kidney disease, unspecified; K21.9 Gastro-esophageal reflux disease without esophagitis; E78.00 Pure hypercholesterolemia, unspecified; I25.2 Old myocardial infarction; G89.29 Other chronic pain; Z86.718 Personal history of other venous thrombosis and embolism; Z88.0 Allergy status to penicillin; Z88.8 Allergy status to other drugs, medicaments and biological substances; Z86.73 Personal history of transient ischemic attack (TIA), and cerebral infarction without residual deficits; Z88.5 Allergy status to narcotic agent; Z88.1 Allergy status to other antibiotic agents; Z88.2 Allergy status to sulfonamides; Z95.5 Presence of coronary angioplasty implant and graft; W18.39XA Other fall on same level, initial encounter; Y93.89 Activity, other specified; Y92.89 Other specified places as the place of occurrence of the external cause; Y99.8 Other external cause status
CPT/HCPCS: 70450; 99284; Q0162

== ENCOUNTER 2017-10-19 10:20 | Inpatient (IN) | payer MEDICARE, MEDICAID ==
[2017-10-19] MEDS ORDERED: 0.9 % SODIUM CHLORIDE 10 ML DISP.SYRIN. IV (10:45)
[2017-10-19] MEDS: fentaNYL PF VIAL 100 MCG/2 ML VIAL IV ×7 (10:49→22:53)
[2017-10-19 10:50] LABS: ADD MAN DIFF? NO
[2017-10-19] MEDS: ASPIRIN CHEWABLE 81 MG TABLET. PO (10:51)
[2017-10-19 10:52] LABS: BASO % 0 % (0-3); EOS # 0.1 x10^3/uL (0.0-0.7); EOS % 2 % (0-3); HEMATOCRIT 44.2 % (36.0-47.0); HEMOGLOBIN 13.8 g/dL (12.0-15.5); LYMPH % 14 % (24-48); MEAN CORPUSCULAR HEMOGLOBIN 28 pg (25-35); MEAN CORPUSCULAR HGB CONC 31 g/dL (31-37); MEAN CORPUSCULAR VOLUME 90 fL (79-100); MONO # 0.4 x10^3/uL (0.0-1.1); MONO % 5 % (0-9); NEUT # 5.9 x10^3uL (1.8-7.7); NEUT % 80 % (31-73); PLATELET COUNT 240 x10^3/uL (140-400); RED BLOOD COUNT 4.93 x10^6/uL (3.50-5.40); RED CELL DISTRIBUTION WIDTH 19.6 % (11.5-14.5); WHITE BLOOD COUNT 7.4 x10^3/uL (4.0-11.0)
[2017-10-19 10:59] LABS: POC GLUCOSE 185 mg/dL (70-99)
[2017-10-19 11:15] LABS: LACTIC ACID 1.6 mmol/L (0.4-2.0)
[2017-10-19 11:17] LABS: BASE EXCESS ABG -2 mmol/L (-3-3); HCO3 ABG 22 mmol/L (21-28); PCO2 ABG 36 mmHg (35-46); PO2 ABG 61 mmHg (75-108); SAT O2 ABG 91 % (92-99)
[2017-10-19 11:21] LABS: ANION GAP 10 (6-14); BLOOD UREA NITROGEN 32 mg/dL (7-20); CALCIUM 8.3 mg/dL (8.5-10.1); CARBON DIOXIDE 25 mmol/L (21-32); CHLORIDE 106 mmol/L (98-107); CREATININE 1.7 mg/dL (0.6-1.0); GFR 32.2; GLUCOSE 215 mg/dL (70-99); POTASSIUM 4.7 mmol/L (3.5-5.1); SODIUM 141 mmol/L (136-145)
[2017-10-19 11:22] LABS: FIO2 ABG 28
[2017-10-19 11:24] LABS: TROPONINI 0.022 ng/mL (0.000-0.055)
[2017-10-19 11:25] LABS: ALBUMIN 2.6 g/dL (3.4-5.0); ALK PHOS 110 U/L (46-116); ALT (SGPT) 10 U/L (14-59); AST (SGOT) 9 U/L (15-37); DIRECT BILIRUBIN 0.1 mg/dL (0.0-0.2); LIPASE 111 U/L (73-393); MAGNESIUM 1.8 mg/dL (1.8-2.4); TOTAL BILIRUBIN 0.5 mg/dL (0.2-1.0); TOTAL PROTEIN 6.9 g/dL (6.4-8.2)
[2017-10-19 11:29] LABS: THYROID STIM HORMONE (TSH) 4.587 uIU/mL (0.358-3.74)
[2017-10-19 11:31] LABS: NT-PRO BNP 10004 pg/mL (0-124)
[2017-10-19 11:31] LABS: CKMB MASS 2.3 ng/mL (0.0-3.6); CREATINE KINASE 65 U/L (26-192)
[2017-10-19 11:50] LABS: INFLUENZA A PATIENT NEGATIVE (NEGATIVE); INFLUENZA B PATIENT NEGATIVE (NEGATIVE); OBC FLU VALID
[2017-10-19] MEDS ORDERED: NITROGLYCERIN SUBLINGUAL 0.4 MG BOTTLE OF 25. SL ×2 (12:15→13:00)
[2017-10-19] MEDS ORDERED: ACETAMINOPHEN 325 MG TABLET. PO ×2 (13:00→20:00)
[2017-10-19] MEDS: FUROSEMIDE 100 MG/10 ML VIAL. IVP (13:40)
[2017-10-19] MEDS: CIPROFLOXACIN 400MG PREMIX 200 ML IV ×2 (13:49→20:50)
[2017-10-19 15:27] LABS: LACTIC ACID 1.9 mmol/L (0.4-2.0)
[2017-10-19 15:45] LABS: BILIRUBIN,URINE NEGATIVE (NEG); CLARITY,URINE CLEAR; COLOR,URINE YELLOW; GLUCOSE,URINE NEGATIVE (NEG); NITRITE,URINE NEGATIVE (NEG); PH,URINE 5.5; PROTEIN,URINE >=300 mg/dL (NEG-TRACE); UROBILINOGEN,URINE 0.2 mg/dL (0.2 mg/dL)
[2017-10-19 15:50] LABS: WBC,URINE OCC /HPF (0-4)
[2017-10-19 15:51] LABS: BACTERIA,URINE FEW /HPF (0-FEW); SQUAMOUS EPITHELIAL CELL,UR MANY /LPF
[2017-10-19 18:30] LABS: POC GLUCOSE 159 mg/dL (70-99)
[2017-10-19 19:25] LABS: TROPONINI 0.023 ng/mL (0.000-0.055)
[2017-10-19 20:43] LABS: POC GLUCOSE 157 mg/dL (70-99)
[2017-10-19] MEDS: ATORVASTATIN CALCIUM 40 MG TABLET. PO (20:47)
[2017-10-19] MEDS: FAMOTIDINE 20 MG TABLET. PO (20:48)
[2017-10-19] MEDS: CARVEDILOL 3.125 MG TABLET. PO (20:48)
[2017-10-19] MEDS: MONTELUKAST SODIUM 10 MG TABLET. PO (20:48)
[2017-10-19] MEDS: INSULIN DETEMIR 300 UNITS/3 ML INSULN.PEN. SQ (21:02)
[2017-10-20 02:10] LABS: TROPONINI 0.024 ng/mL (0.000-0.055)
[2017-10-20] MEDS: fentaNYL PF VIAL 100 MCG/2 ML VIAL IV ×4 (03:13→21:24)
[2017-10-20] MEDS: ONDANSETRON PF 4 MG/2 ML VIAL. IV (04:03)
[2017-10-20 05:55] LABS: ADD MAN DIFF? NO
[2017-10-20 06:08] LABS: BASO # 0.1 x10^3/uL (0.0-0.2); BASO % 1 % (0-3); EOS # 0.1 x10^3/uL (0.0-0.7); EOS % 1 % (0-3); HEMATOCRIT 40.8 % (36.0-47.0); HEMOGLOBIN 12.7 g/dL (12.0-15.5); LYMPH # 1.2 x10^3/uL (1.0-4.8); LYMPH % 17 % (24-48); MEAN CORPUSCULAR HEMOGLOBIN 28 pg (25-35); MEAN CORPUSCULAR HGB CONC 31 g/dL (31-37); MEAN CORPUSCULAR VOLUME 91 fL (79-100); MONO # 0.4 x10^3/uL (0.0-1.1); MONO % 5 % (0-9); NEUT # 5.4 x10^3uL (1.8-7.7); NEUT % 76 % (31-73); PLATELET COUNT 186 x10^3/uL (140-400); RED BLOOD COUNT 4.51 x10^6/uL (3.50-5.40); WHITE BLOOD COUNT 7.1 x10^3/uL (4.0-11.0)
[2017-10-20 06:51] LABS: ANION GAP 11 (6-14); BLOOD UREA NITROGEN 34 mg/dL (7-20); CALCIUM 8.2 mg/dL (8.5-10.1); CARBON DIOXIDE 25 mmol/L (21-32); CHLORIDE 106 mmol/L (98-107); CREATININE 1.8 mg/dL (0.6-1.0); GFR 30.2; GLUCOSE 157 mg/dL (70-99); MAGNESIUM 1.9 mg/dL (1.8-2.4); POTASSIUM 5.1 mmol/L (3.5-5.1); SODIUM 142 mmol/L (136-145)
[2017-10-20] MEDS: PANTOPRAZOLE 40 MG TABLET.DR. PO (07:30)
[2017-10-20] MEDS: INSULIN ASPART 300 UNITS/3 ML INSULN.PEN SQ ×5 (07:30→18:00)
[2017-10-20] MEDS: CARVEDILOL 3.125 MG TABLET. PO ×2 (08:00→17:52)
[2017-10-20] MEDS ORDERED: ONDANSETRON PF 4 MG/2 ML VIAL. IV (08:15)
[2017-10-20] MEDS ORDERED: ACETAMINOPHEN 325 MG TABLET. PO (08:15)
[2017-10-20 08:19] LABS: POC GLUCOSE 145 mg/dL (70-99)
[2017-10-20 08:22] LABS: INR 1.3 (0.8-1.1)
[2017-10-20] MEDS: INSULIN DETEMIR 300 UNITS/3 ML INSULN.PEN. SQ ×2 (09:00→20:23)
[2017-10-20] MEDS ORDERED: TORSEMIDE 20 MG TABLET. PO (09:00)
[2017-10-20] MEDS: FUROSEMIDE 40 MG/4 ML VIAL. IVP ×2 (09:00→14:43)
[2017-10-20 12:28] LABS: POC GLUCOSE 108 mg/dL (70-99)
[2017-10-20] MEDS: IPRATRPIUM/ALBUTEROL 0.5/2.5MG 3 ML NEBU. NEB ×3 (12:37→20:22)
[2017-10-20 14:40] LABS: POC GLUCOSE 89 mg/dL (70-99)
[2017-10-20] MEDS: HYDROmorphone 2 MG TABLET PO ×2 (14:42→20:13)
[2017-10-20] MEDS: ALBUTEROL SULFATE 2.5 MG/3 ML NEBU. NEB ×2 (16:06→16:07)
[2017-10-20 17:32] LABS: POC GLUCOSE 177 mg/dL (70-99)
[2017-10-20] MEDS: FAMOTIDINE 20 MG TABLET. PO (20:14)
[2017-10-20] MEDS: MONTELUKAST SODIUM 10 MG TABLET. PO (20:14)
[2017-10-20] MEDS: ATORVASTATIN CALCIUM 40 MG TABLET. PO (20:14)
[2017-10-20 20:25] LABS: POC GLUCOSE 144 mg/dL (70-99)
[2017-10-21] MEDS: fentaNYL PF VIAL 100 MCG/2 ML VIAL IV ×2 (00:33→05:20)
[2017-10-21 05:52] LABS: ADD MAN DIFF? NO
[2017-10-21 05:59] LABS: BASO # 0.1 x10^3/uL (0.0-0.2); BASO % 1 % (0-3); EOS # 0.2 x10^3/uL (0.0-0.7); EOS % 3 % (0-3); HEMATOCRIT 38.5 % (36.0-47.0); HEMOGLOBIN 12.3 g/dL (12.0-15.5); LYMPH # 1.1 x10^3/uL (1.0-4.8); LYMPH % 17 % (24-48); MEAN CORPUSCULAR HEMOGLOBIN 29 pg (25-35); MEAN CORPUSCULAR HGB CONC 32 g/dL (31-37); MEAN CORPUSCULAR VOLUME 91 fL (79-100); MONO # 0.4 x10^3/uL (0.0-1.1); MONO % 6 % (0-9); NEUT # 4.4 x10^3uL (1.8-7.7); NEUT % 72 % (31-73); PLATELET COUNT 170 x10^3/uL (140-400); RED BLOOD COUNT 4.23 x10^6/uL (3.50-5.40); RED CELL DISTRIBUTION WIDTH 19.2 % (11.5-14.5); WHITE BLOOD COUNT 6.1 x10^3/uL (4.0-11.0)
[2017-10-21 06:42] LABS: ANION GAP 4 (6-14); BLOOD UREA NITROGEN 38 mg/dL (7-20); CALCIUM 7.6 mg/dL (8.5-10.1); CARBON DIOXIDE 27 mmol/L (21-32); CHLORIDE 107 mmol/L (98-107); CREATININE 2.1 mg/dL (0.6-1.0); GFR 25.2; GLUCOSE 89 mg/dL (70-99); MAGNESIUM 1.7 mg/dL (1.8-2.4); POTASSIUM 4.7 mmol/L (3.5-5.1); SODIUM 138 mmol/L (136-145)
[2017-10-21] MEDS: IPRATRPIUM/ALBUTEROL 0.5/2.5MG 3 ML NEBU. NEB ×4 (07:10→20:47)
[2017-10-21] MEDS: INSULIN ASPART 300 UNITS/3 ML INSULN.PEN SQ ×6 (07:30→16:30)
[2017-10-21 08:15] LABS: POC GLUCOSE 71 mg/dL (70-99)
[2017-10-21] MEDS: HYDROmorphone 2 MG TABLET PO ×2 (08:16→16:37)
[2017-10-21] MEDS: PANTOPRAZOLE 40 MG TABLET.DR. PO (08:16)
[2017-10-21] MEDS: ASPIRIN ENTERIC COATED 81 MG TABLET.DR. PO (08:16)
[2017-10-21] MEDS: CARVEDILOL 3.125 MG TABLET. PO ×2 (08:17→16:36)
[2017-10-21] MEDS: FUROSEMIDE 40 MG/4 ML VIAL. IVP (08:17)
[2017-10-21] MEDS: INSULIN DETEMIR 300 UNITS/3 ML INSULN.PEN. SQ ×2 (09:00→21:14)
[2017-10-21] MEDS: IV NORMAL SALINE 500ML BAG 500 ML IV (09:30)
[2017-10-21] MEDS: DICLOFENAC SODIUM 1% TOPICAL GEL 100GM TUBE. TP ×2 (10:53→21:15)
[2017-10-21] MEDS: MAGNESIUM SULFATE 2GM 50 ML IV (11:07)
[2017-10-21 11:22] LABS: BODY FLUID LDH 35 IU/L (.)
[2017-10-21 12:18] LABS: POC GLUCOSE 76 mg/dL (70-99)
[2017-10-21 17:48] LABS: POC GLUCOSE 105 mg/dL (70-99)
[2017-10-21 20:43] LABS: POC GLUCOSE 140 mg/dL (70-99)
[2017-10-21] MEDS: ATORVASTATIN CALCIUM 40 MG TABLET. PO (21:15)
[2017-10-21] MEDS: MONTELUKAST SODIUM 10 MG TABLET. PO (21:15)
[2017-10-21] MEDS: FAMOTIDINE 20 MG TABLET. PO (21:15)
[2017-10-22] MEDS: HYDROmorphone 2 MG TABLET PO ×2 (00:21→08:50)
[2017-10-22 05:57] LABS: ADD MAN DIFF? NO
[2017-10-22 06:15] LABS: BASO # 0.1 x10^3/uL (0.0-0.2); BASO % 1 % (0-3); EOS # 0.2 x10^3/uL (0.0-0.7); EOS % 3 % (0-3); HEMATOCRIT 38.5 % (36.0-47.0); HEMOGLOBIN 12.2 g/dL (12.0-15.5); LYMPH # 1.1 x10^3/uL (1.0-4.8); LYMPH % 20 % (24-48); MEAN CORPUSCULAR HEMOGLOBIN 29 pg (25-35); MEAN CORPUSCULAR HGB CONC 32 g/dL (31-37); MEAN CORPUSCULAR VOLUME 92 fL (79-100); MONO # 0.3 x10^3/uL (0.0-1.1); MONO % 6 % (0-9); NEUT # 3.7 x10^3uL (1.8-7.7); NEUT % 70 % (31-73); PLATELET COUNT 170 x10^3/uL (140-400); WHITE BLOOD COUNT 5.3 x10^3/uL (4.0-11.0)
[2017-10-22 06:18] LABS: ANION GAP 8 (6-14); BLOOD UREA NITROGEN 42 mg/dL (7-20); CALCIUM 8.2 mg/dL (8.5-10.1); CARBON DIOXIDE 28 mmol/L (21-32); CHLORIDE 108 mmol/L (98-107); CREATININE 2.2 mg/dL (0.6-1.0); GFR 23.9; GLUCOSE 112 mg/dL (70-99); POTASSIUM 4.6 mmol/L (3.5-5.1); SODIUM 144 mmol/L (136-145)
[2017-10-22] MEDS: INSULIN ASPART 300 UNITS/3 ML INSULN.PEN SQ ×4 (07:30→11:30)
[2017-10-22] MEDS: IPRATRPIUM/ALBUTEROL 0.5/2.5MG 3 ML NEBU. NEB ×2 (08:21→11:47)
[2017-10-22 08:35] LABS: POC GLUCOSE 100 mg/dL (70-99)
[2017-10-22] MEDS: PANTOPRAZOLE 40 MG TABLET.DR. PO (08:50)
[2017-10-22] MEDS: DICLOFENAC SODIUM 1% TOPICAL GEL 100GM TUBE. TP (08:50)
[2017-10-22] MEDS: CARVEDILOL 3.125 MG TABLET. PO (08:52)
[2017-10-22] MEDS: INSULIN DETEMIR 300 UNITS/3 ML INSULN.PEN. SQ (08:55)
[2017-10-22] MEDS: TORSEMIDE 20 MG TABLET. PO (08:55)
[2017-10-22 12:24] LABS: POC GLUCOSE 83 mg/dL (70-99)
== END 2017-10-22 14:30 | disposition home or self-care (01) | DRG 291 ==
LOC: ER 10:20 → ED HOLD 13:02 → 2 NORTH 18:12
PROC: 0W993ZZ Drainage of Right Pleural Cavity, Percutaneous Approach (ICD-10-PCS; principal; 2017-10-20)
DX: I13.2 Hypertensive heart and chronic kidney disease with heart failure and with stage 5 chronic kidney disease, or end stage renal disease (principal); J96.01 Acute respiratory failure with hypoxia; N17.9 Acute kidney failure, unspecified; E44.0 Moderate protein-calorie malnutrition; D68.59 Other primary thrombophilia; J90 Pleural effusion, not elsewhere classified; E11.22 Type 2 diabetes mellitus with diabetic chronic kidney disease; E11.40 Type 2 diabetes mellitus with diabetic neuropathy, unspecified; I50.23 Acute on chronic systolic (congestive) heart failure; J44.0 Chronic obstructive pulmonary disease with (acute) lower respiratory infection; Z68.42 Body mass index [BMI] 45.0-49.9, adult; J98.11 Atelectasis; I42.9 Cardiomyopathy, unspecified; E66.01 Morbid (severe) obesity due to excess calories; J20.8 Acute bronchitis due to other specified organisms; E11.51 Type 2 diabetes mellitus with diabetic peripheral angiopathy without gangrene; F41.9 Anxiety disorder, unspecified; F32.9 Major depressive disorder, single episode, unspecified; G47.33 Obstructive sleep apnea (adult) (pediatric); E11.65 Type 2 diabetes mellitus with hyperglycemia; E21.3 Hyperparathyroidism, unspecified; D64.9 Anemia, unspecified; K76.0 Fatty (change of) liver, not elsewhere classified; K21.9 Gastro-esophageal reflux disease without esophagitis; G89.29 Other chronic pain; M54.5 Low back pain; E78.5 Hyperlipidemia, unspecified; I25.10 Atherosclerotic heart disease of native coronary artery without angina pectoris; R94.6 Abnormal results of thyroid function studies; M54.6 Pain in thoracic spine; M10.9 Gout, unspecified; M19.90 Unspecified osteoarthritis, unspecified site; E11.621 Type 2 diabetes mellitus with foot ulcer; I87.8 Other specified disorders of veins; E78.00 Pure hypercholesterolemia, unspecified; R79.89 Other specified abnormal findings of blood chemistry; T50.2X5A Adverse effect of carbonic-anhydrase inhibitors, benzothiadiazides and other diuretics, initial encounter; N18.2 Chronic kidney disease, stage 2 (mild); L97.509 Non-pressure chronic ulcer of other part of unspecified foot with unspecified severity; Z90.49 Acquired absence of other specified parts of digestive tract; Z89.421 Acquired absence of other right toe(s); Z83.3 Family history of diabetes mellitus; Z82.49 Family history of ischemic heart disease and other diseases of the circulatory system; Z98.891 History of uterine scar from previous surgery; Z99.81 Dependence on supplemental oxygen; Z86.711 Personal history of pulmonary embolism; Z86.73 Personal history of transient ischemic attack (TIA), and cerebral infarction without residual deficits; Z95.5 Presence of coronary angioplasty implant and graft; I25.2 Old myocardial infarction; Z91.81 History of falling; Z91.19 Patient's noncompliance with other medical treatment and regimen; Z86.718 Personal history of other venous thrombosis and embolism; Z88.6 Allergy status to analgesic agent; Z88.1 Allergy status to other antibiotic agents; Z88.0 Allergy status to penicillin; Z88.2 Allergy status to sulfonamides; Z88.8 Allergy status to other drugs, medicaments and biological substances; Z86.19 Personal history of other infectious and parasitic diseases
CPT/HCPCS: 32555; 36415; 36600; 71045; 71250; 80048; 80076; 81001; 82553; 82805; 82962; 83605; 83615; 83690; 83735; 83880; 84157; 84443; 84484; 85025; 85610; 87040; 87071; 87075; 87205; 87804; 87804-59; 88112; 88305; 93005; 94618; 94640; 96365; 96375; 96376; 97162-GP; 97166-GO; 99291; 99291-25; J0744; J1815; J1940; J2405; J3010; J7040; J7060; J7613; J7620